=== PATIENT | male | born 1945 | race Caucasian/White ===

== ENCOUNTER 2018-08-22 15:40 | Inpatient (IN) | payer MEDICARE, MEDICAID ==
[2018-08-22] VITALS (18 sets, daily range): BP systolic 77–123; BP diastolic 42–69
[~2018-08-22] VITALS: Ht 170.2 cm; Wt 69.9 kg
[~2018-08-22 15:40] MED LIST: BACTRIM-DS1 EA ORAL; BENADRYL50 MG ORAL; KEFLEX500 MG ORAL
--- NOTE | 2018-08-22 16:08 | NUR ---
ED Nurse Note: Pt BIBA from home due to Altered Level of Consciousness and n/v today per caregiver. Pt vomitted brown substance x1 prior to arrival, not coffee ground. pt slow to respond to questions but opened his eyes while being called his name. pt was at normal mentation per ems at home. Rectal Temp 104.5F upon arrival, HR 107. Monitor attached. Will cont to monitor.
--- NOTE | 2018-08-22 16:10 | NUR ---
ED Nurse Note: Blood drawn and sent to lab.
[2018-08-22] MEDS ORDERED: Acetaminophen 650 MG SUPP RECTAL ONE (16:15)
[2018-08-22] MEDS ORDERED: Piperacillin/Tazobactam 4.5 GM in NS 110 ML IVPB ONE (16:15)
--- NOTE | 2018-08-22 16:17 | Emergency Room Report ---
History of Present Illness General Chief Complaint: Altered Mental Status Source: Patient, EMS Present Illness HPI 73yo M with h/o high cholesterol biba from a private residence for AMS today with vomiting. No h/o falls or trauma. According to EMS, patient is normally alert and oriented x3. History very limited as patient is drowsy and arouses to pain stimulus only. B[facility] Marker is en route. Allergies: Coded Allergies: No Known Allergies (Unverified , 08/22/18) Patient History Past Medical History: see triage record Reviewed Nursing Documentation: PMH: Agreed; PSxH: Agreed Nursing Documentation-PMH Past Medical History: No History, Except For Hx Hypertension: Yes Hx Diabetes: Yes Hx Cancer: Yes Hx Gastrointestinal Problems: No - Hernia Review of Systems All Other Systems: limited Physical Exam Vital Signs Date Time Temp Pulse Resp B/P (MAP) Pulse Ox O2 Delivery O2 Flow Rate FiO2 08/22/18 15:34 99.1 72 20 119/64 95 Room Air Sp02 EP Interpretation: reviewed, normal General Appearance: moderate distress, obese, Stupor Head: normocephalic Eyes: bilateral eye normal inspection, bilateral eye PERRL ENT: normal ENT inspection, normal pharynx, no angioedema, dry mucus membranes Neck: normal inspection, full range of motion, supple, no meningismus, supple/ symm/no masses Respiratory: chest non-tender, lungs clear, no rhonchi, no respiratory distress , no retraction, decreased breath sounds - diminished at bilateral bases, chest symmetrical, palpation of chest normal Cardiovascular #1: normal peripheral pulses, regular rate, rhythm Cardiovascular #2: 2+ radial (R), 2+ radial (L) Gastrointestinal: normal inspection, non tender, soft, no mass, no peritonitis , no guarding, no rebound Rectal: deferred Genitourinary: normal inspection, no CVA tenderness Musculoskeletal: back normal, non-tender, no calf tenderness Neurologic: responsive, email marketing executive III-XII nml as tested - difficult to assess 2/2 depressed level of concsciousness, motor strength/tone normal - withdraws all extremities to pain stimulus, sensory intact Psychiatric: other - unable to assess Skin: normal color, no rash, warm/dry, normal turgor Lymphatic: no adenopathy Procedures Critical Care Time Critical Care Time 55 minutes excluding all procedures as patient is acutely ill with AMS and hyperpyrexia. Medical Decision Making Diagnostic Impression: Primary Impression: Sepsis ER Course Upon the first hour of arrival, patient was treated with 30 mL/kg IV fluid bolus , lactic acid, blood cultures, drawn, and patient given broad-spectrum antibiotics. A repeat focused sepsis exam was performed at 4:15 PM, patient was found to have a fever, but remained hemodynamically stable. He was given rectal tylenol. At 4:45pm, patient's RN gave me a health ID badge that states "adrenal insufficiency" and "hypothyroidism" and "call Leyda [phone]" I have sent out cortisol, tsh, t3/t4. I spoke with Leyda, his daughter, and she reports he had stage IV melanoma, improved with immunotherapy. His immunotherapy doctor is Dr. Ma. Leyda told me over the phone that she would get in touch with Dr. Ma to call me back. I have sent out cortisol, ACTH, renin, aldosterone, tsh, free t3, free t4 on the patient. His workup does not reveal a focus of infection. His WBC is 12k. I will given decadron 4mg IV now in case patient is suffering from an acute adrenal crisis. I spoke to patient's daughter, Leyda, again and she reported patient's brother will be here soon. I have also spoken to patient's son, given him an update. He reports father was admitted to [facility] for sepsis. I spoke with another daughter as well, and updated her also. She reports she will come in to the hospital to see him. Upon my re-evaluation, patient is still hyperthermic despite tylenol, so will try cooling blanket. He is slightly more awake and oriented to person but still drowsy and unable to give history. He will be admitted to Dr. Bonilla for ICU admission. EKG Diagnostic Results EKG Time: 15:54 EP Interpretation: no stemi Rate: tachycardiac Rhythm: NSR ST Segments: no acute changes ASA given to the pt in ED: No Rhythm Strip Diag. Results Rhythm Strip Time: 16:16 EP Interpretation: yes Rate: 108 Rhythm: NSR, no PVC's, no ectopy Chest X-Ray Diagnostic Results Chest X-Ray Diagnostic Results : Chest X-Ray Ordered: Yes # of Views/Limited/Complete: 1 View Indication: Other - ams EP Interpretation: Yes Interpretation: no consolidation, no effusion, no pneumothorax, no acute cardiopulmonary disease Impression: No acute disease Electronically Signed by: Kayden Dc MD CT/MRI/US Diagnostic Results CT/MRI/US Diagnostic Results : Imaging Test Ordered: ct head Last Vital Signs Date Time Temp Pulse Resp B/P (MAP) Pulse Ox O2 Delivery O2 Flow Rate FiO2 08/22/18 16:03 107 21 Room Air 08/22/18 16:02 104.5 123/49 96 KAYDEN DC M.D Aug 22, 2018 16:17
[2018-08-22 16:27] LABS: BASOPHILS % (AUTO) 1.3 % (0.0-2.0); EOSINOPHILS % (AUTO) 0.7 % (0.0-3.0); HEMATOCRIT 42.1 % (42.0-52.0); HEMOGLOBIN 14.5 G/DL (14.2-18.0); LYMPHOCYTES % (AUTO) 19.1 % (20.0-45.0); MEAN CORPUSCULAR VOLUME 85 FL (80-99); MONOCYTES % (AUTO) 10.5 % (1.0-10.0); NEUTROPHILS % (AUTO) 68.4 % (45.0-75.0); PLATELET COUNT 113 K/UL (150-450); RED BLOOD COUNT 4.96 M/UL (4.70-6.10); RED CELL DISTRIBUTION WIDTH 11.7 % (11.6-14.8); WHITE BLOOD COUNT 12.1 K/UL (4.8-10.8)
[2018-08-22 16:29] LABS: INR 1.2 (0.9-1.1)
[2018-08-22 16:31] LABS: AMMONIA 27 umol/L (11-32)
--- NOTE | 2018-08-22 16:31 | Diagnostic Imaging Report ---
Indications: Altered mental status Technique: Spiral acquisitions obtained through the brain. Angled axial and coronal 5 x 5 mm slices were reconstructed. Total dose length product 1460.54 mGycm. CTDI vol(s) 70.38 mGy. Dose reduction achieved using automated exposure control Comparison: None. Findings: Normal-sized ventricles and extra axial CSF spaces. Normal dale-white differentiation. No acute intracranial hemorrhage nor edema. No mass effect nor midline shift. Visualized orbits are unremarkable. There is minimal ethmoid sinus disease. The mastoids are clear. Impression: Negative The CT scanner at [facility] is accredited by the [employer] and the scans are performed using protocols designed to limit radiation exposure to as low as reasonably achievable to attain images of sufficient resolution adequate for diagnostic evaluation.
--- NOTE | 2018-08-22 16:32 | Diagnostic Imaging Report ---
Indication: Shortness of breath Technique: One view of the chest Comparison: none Findings: There are supraclavicular fossa surgical clips. Lungs and pleural spaces are clear. The heart size is upper limits normal. The aorta is tortuous Impression: No acute process
[2018-08-22 16:43] LABS: ANION GAP 12 mmol/L (5-15); BLOOD UREA NITROGEN 27 mg/dL (7-18); CALCIUM 9.2 MG/DL (8.5-10.1); CARBON DIOXIDE 24 MMOL/L (21-32); CHLORIDE 102 MMOL/L (98-107); CREATININE 1.2 MG/DL (0.55-1.30); POTASSIUM 3.8 MMOL/L (3.5-5.1); SODIUM 138 MMOL/L (136-145)
[2018-08-22 16:51] LABS: APPEARANCE,URINE CLEAR; BILIRUBIN, URINE NEGATIVE (NEGATIVE); COLOR,URINE PALE YELLOW; GLUCOSE, URINE (UA) NEGATIVE (NEGATIVE); KETONES,URINE NEGATIVE (NEGATIVE); LEUKOCYTE ESTERASE ,URINE NEGATIVE (NEGATIVE); NITRITE,URINE NEGATIVE (NEGATIVE); PH,URINE 5 (4.5-8.0); PROTEIN,URINE NEGATIVE (NEGATIVE); UROBILINOGEN,URINE NORMAL MG/DL (0.0-1.0)
[2018-08-22 16:56] LABS: ALANINE AMINOTRANSFERASE 38 U/L (12-78); ALBUMIN 4.2 G/DL (3.4-5.0); ALBUMIN/GLOBULIN RATIO 0.9 (1.0-2.7); ALKALINE PHOSPHATASE 71 U/L (46-116); ASPARTATE AMINO TRANSFERASE 44 U/L (15-37); BILIRUBIN,TOTAL 0.5 MG/DL (0.2-1.0); CKMB 2.2 NG/ML (0.0-3.6); CREATINE KINASE 612 U/L (26-308)
[2018-08-22] MEDS ORDERED: Dexamethasone 4mg/ml vial IVP ONE (17:15)
[2018-08-22] MEDS ORDERED: Isovue-300 100ml vial INJ PRN (17:15)
--- NOTE | 2018-08-22 17:42 | NUR ---
ER Nurse Note: Pt is more responsive but unable to communicate. Vital signs elevated; ERMD aware. Pt temp at 104.2. BARTOLOMED notified family members about pt condition. Antibiotic order but unable to obtain from [facility]; Jose from pharmacy notifed and awaiting on med. Pt going to CT. Will continue to montior.
[2018-08-22] MEDS ORDERED: Vancomycin 2gm/D5W 550ml IVPB ONE ×2 (18:30)
--- NOTE | 2018-08-22 18:32 | NUR ---
ER Nurse Note: Pt elevated temp; cooling blanket applied. Vanco infusing. pt condition has not changed since admission. Pt opens eyes with pain simulation. Pt BP 72/38; ERMD aware. Temp 102.7 Will continue to montior.
[2018-08-22] MEDS ORDERED: Levophed 4mg/4mL Inj IV ONE (18:52)
[2018-08-22] MEDS ORDERED: Lidocaine 1% Plain 30 ml INJ ONE ×2 (18:59→19:45)
--- NOTE | 2018-08-22 19:54 | Infectious Diseases Prog Note ---
Assessment/Plan Assessment/Plan Full consult dictated: A) 1) sepsis, fevers, leukocytosis 2) ? source 3) ? adrenal insufficiency 4) hx biliary sepsis and melanoma, pmh noted 5) allergies - nkda P) 1) zosyn and vancomycin, amikacin x 1 dose 2) check labs, cultures and imaging 3) d/w Dr. Bonilla 4) d/w pharmacy 5) d/w family Subjective Allergies: Coded Allergies: No Known Allergies (Unverified , 08/22/18) Objective Vital Signs Last 24 Hour Vital Signs Date Time Temp Pulse Resp B/P (MAP) Pulse Ox O2 Delivery O2 Flow Rate FiO2 08/22/18 17:40 104.2 118 18 102/48 94 Room Air 08/22/18 16:50 104.5 08/22/18 16:03 107 21 Room Air 08/22/18 16:02 104.5 107 21 123/49 96 Room Air 08/22/18 15:34 99.1 72 20 119/64 95 Room Air Height (Feet): 6 Weight (Pounds): 200 Microbiology Date/Time Source Procedure Growth Status 08/22/18 15:55 Nasal Nares Influenza Types A,B Antigen (NELDA) - Final Complete Laboratory Tests Test 08/22/18 15:55 08/22/18 16:35 08/22/18 16:50 08/22/18 18:30 White Blood Count 12.1 K/UL (4.8-10.8) H Red Blood Count 4.96 M/UL (4.70-6.10) Hemoglobin 14.5 G/DL (14.2-18.0) Hematocrit 42.1 % (42.0-52.0) Mean Corpuscular Volume 85 FL (80-99) Mean Corpuscular Hemoglobin 29.2 PG (27.0-31.0) Mean Corpuscular Hemoglobin Concent 34.5 G/DL (32.0-36.0) Red Cell Distribution Width 11.7 % (11.6-14.8) Platelet Count 113 K/UL (150-450) L Mean Platelet Volume 7.4 FL (6.5-10.1) Neutrophils (%) (Auto) 68.4 % (45.0-75.0) Lymphocytes (%) (Auto) 19.1 % (20.0-45.0) L Monocytes (%) (Auto) 10.5 % (1.0-10.0) H Eosinophils (%) (Auto) 0.7 % (0.0-3.0) Basophils (%) (Auto) 1.3 % (0.0-2.0) Prothrombin Time 12.4 SEC (9.30-11.50) H Prothromb Time International Ratio 1.2 (0.9-1.1) H Activated Partial Thromboplast Time 30 SEC (23-33) Sodium Level 138 MMOL/L (136-145) Potassium Level 3.8 MMOL/L (3.5-5.1) Chloride Level 102 MMOL/L (98-107) Carbon Dioxide Level 24 MMOL/L (21-32) Anion Gap 12 mmol/L (5-15) Blood Urea Nitrogen 27 mg/dL (7-18) H Creatinine 1.2 MG/DL (0.55-1.30) Estimat Glomerular Filtration Rate mL/min (>60) Glucose Level 105 MG/DL (74-106) Lactic Acid Level 1.40 mmol/L (0.4-2.0) Calcium Level 9.2 MG/DL (8.5-10.1) Magnesium Level 1.8 MG/DL (1.8-2.4) Total Bilirubin 0.5 MG/DL (0.2-1.0) Aspartate Amino Transf (AST/SGOT) 44 U/L (15-37) H Alanine Aminotransferase (ALT/SGPT) 38 U/L (12-78) Alkaline Phosphatase 71 U/L (46-116) Ammonia 27 umol/L (11-32) Total Creatine Kinase 612 U/L (26-308) H Creatine Kinase MB 2.2 NG/ML (0.0-3.6) Creatine Kinase MB Relative Index 0.3 Troponin I 0.000 ng/mL (0.000-0.056) Total Protein 8.9 G/DL (6.4-8.2) H Albumin 4.2 G/DL (3.4-5.0) Globulin 4.7 g/dL Albumin/Globulin Ratio 0.9 (1.0-2.7) L Urine Color Pale yellow Urine Appearance Clear Urine pH 5 (4.5-8.0) Urine Specific [place] 1.015 (1.005-1.035) Urine Protein Negative (NEGATIVE) Urine Glucose (UA) Negative (NEGATIVE) Urine Ketones Negative (NEGATIVE) Urine Blood 4+ (NEGATIVE) H Urine Nitrite Negative (NEGATIVE) Urine Bilirubin Negative (NEGATIVE) Urine Urobilinogen Normal MG/DL (0.0-1.0) Urine Leukocyte Esterase Negative (NEGATIVE) Urine RBC 2-4 /HPF (0 - 0) H Urine WBC 0 /HPF (0 - 0) Urine Squamous Epithelial Cells None /LPF (NONE/OCC) Urine Bacteria None /HPF (NONE) Arterial Blood pH 7.447 (7.350-7.450) Arterial Blood Partial Pressure CO2 32.6 mmHg (35.0-45.0) L Arterial Blood Partial Pressure O2 63.8 mmHg (75.0-100.0) L Arterial Blood HCO3 22.0 mmol/L (22.0-26.0) Arterial Blood Oxygen Saturation 93.2 % (95-100) L Arterial Blood Base Excess -1.1 (-2-2) Danny Test Positive Phosphorus Level Pending Renin Pending Aldosterone Pending Thyroid Stimulating Hormone (TSH) 5.085 uiU/mL (0.358-3.740) Free Thyroxine 0.96 NG/DL (0.76-1.46) Free Triiodothyronine 2.7 pg/mL (2.3-4.2) Cortisol Pending Adrenocorticotropic Hormone Pending Current Medications Medications (Trade) Dose Ordered Sig/Elli Route PRN Reason Start Time Stop Time Status Last Admin Dose Admin Iopamidol (Isovue-300 100ml) 100 ml NOW PRN INJ Radiology Procedure 08/22/18 17:15 Norepinephrine Bitartrate 4 mg/ Dextrose 250 ml @ 0 mls/hr Q24H IV 08/22/18 19:00 09/21/18 18:59 Vancomycin HCl (Vanco rx to dose) 1 ea DAILY PRN MISC Per rx protocol 08/22/18 17:00 08/22/18 20:29 Vancomycin HCl 2 gm/Dextrose 550 ml @ 275 mls/hr ONCE ONCE IVPB 08/22/18 18:30 08/22/18 20:29 08/22/18 18:14 Treasure Vargas MD Aug 22, 2018 19:54
--- NOTE | 2018-08-22 20:30 | NUR ---
NURSE NOTES: Received pt and report from FAY Calles from ER. Pt's transferred to ICU for sepsis and hypotensive, currently on Levophed at 18mcg/min. Pt's AOx2-3, verbally responsive, stated no pain at this time. BP 92/49, R18, HR 86, O sat 98% with 3L/NC. Febrile T 102.4F currently on cooling mattress. SR on surveillance system monitor. Lungs clear. Noted Right femoral newly inserted TLC. Pt also have right wrist 18G and Left wrist 18G both are patent, saline blocked. Pt had 5L of NS bolus in ER. No skin issues noted. Dr Bonilla aware of the admission and put in his own orders. Family at bedside. Call light within reach. Bed in low and locked position. Will continue to monitor.
[2018-08-22] MEDS ORDERED: Amikacin 400 MG in NS 110 ML IV ONE (22:00)
[2018-08-22] MEDS ORDERED: Acetaminophen 650 MG SUPP RECTAL PRN (22:00)
--- NOTE | 2018-08-22 22:00 | NUR ---
NURSE NOTES: Pt's resting in bed, comfortably, with his eyes closed. Verbally responsive. Afebrile at this time, temp back to 98.8F. Will continue to monitor.
[2018-08-22] MEDS: Hydrocortisone 100mg Inj IV SCH (23:02)
[2018-08-22] MEDS ORDERED: LOSARTAN POTAS100 MG ORAL (23:53)
[2018-08-22] MEDS ORDERED: METFORMIN500 MG/5 M PO (23:53)
[2018-08-22] MEDS ORDERED: CORTEF20 MG ORAL (23:53)
[2018-08-22] MEDS ORDERED: CORTEF5 MG PO (23:53)
[2018-08-22] MEDS: NovoLOG Insulin Flexpen SUBQ SCH (23:57)
[2018-08-23] VITALS (39 sets, daily range): BP systolic 92–137; BP diastolic 44–88
--- NOTE | 2018-08-23 | NUR ---
NURSE NOTES: Pt's resting in bed, in no distress. VS stable. Levophed weaning down, currently at 14mcg/min. Will contine to monitor.
--- NOTE | 2018-08-23 00:15 | History and Physical Report ---
DATE OF ADMISSION: 08/22/2018 REASON FOR ADMISSION: Hypotension, fevers, and leukocytosis. HISTORY OF PRESENT ILLNESS: This is a 73-year-old white male, who has a known history of malignant melanoma undergoing oncologic therapy for the last several years, who has a known history of severe adrenal insufficiency and is on chronic hydrocortisone therapy. He was brought into the hospital emergency room by paramedics today after having severe vomiting, weakness, and lethargy. He was very drowsy and was arousable only to painful stimulus. In the emergency room, he was severely febrile up to 104 at one time and subsequently hypotensive. He was pancultured, given IV antimicrobials, IV fluid challenges, and intravenous steroids. , the patient was subsequently initiated after his blood pressure failed to adequately improve and pressor support was started with norepinephrine. PAST MEDICAL HISTORY: Obtained from review of prior records from [facility] and available data from family members. PAST MEDICAL HISTORY: Includes hypertension, malignant melanoma with metastatic disease, history of acute cholecystitis, and bacteremia in April 2018 with subsequent cholecystectomy, type 2 diabetes mellitus, hypothyroidism, status post hernia repair. ALLERGIES: No known drug allergies. MEDICATIONS: Prior to admission include losartan 50 mg daily, metformin 500 mg twice a day, hydrocortisone 15 mg in the morning and 5 mg in the evening, and levothyroxine 125 mcg six days a week and 250 mcg once a week. SOCIAL HISTORY: Negative for smoking, alcohol, or substance abuse. FAMILY HISTORY: Noncontributory. REVIEW OF SYSTEMS: Otherwise not obtainable from the patient. Recent diagnostic studies from [facility] were notable for melanoma, metastatic disease to the brain. PHYSICAL EXAMINATION: GENERAL: He is withdrawn and lethargic. VITAL SIGNS: Blood pressure 92/50, heart rate 74, respiratory rate 18, and temperature max 104.1. HEENT: Temporal wasting. Pale conjunctivae. Oropharynx is clear. Mucous membranes dry. NECK: Supple. LUNGS: Bilateral breath sounds. No wheezing. CARDIAC: Regular rhythm and rate. Normal S1 and S2 with a fourth heart sound. No murmur. ABDOMEN: Soft and nontender. No guarding or rebound. No open wounds. EXTREMITIES: No clubbing, cyanosis. Decreased capillary refill. No edema. NEUROLOGIC: Reveals grossly symmetric strength. He moves all extremities in response to pain. LABORATORY AND DIAGNOSTIC DATA: The EKG reveals sinus tachycardia and no acute abnormalities. Chest x-ray, no acute process. CT scan of the brain, result is pending. Labs, white count 12 and hemoglobin 14. TSH 5.08. Lactic acid 1.4. Troponin 0. Albumin 4.2. CK 612 with CK-MB negative. BUN 27, creatinine 1.2, bicarbonate 24, sodium 138, and potassium 3.8. IMPRESSION: 1. Shock, possible sepsis. 2. Adrenal insufficiency. 3. Leukocytosis. 4. Prerenal azotemia. 5. Hypovolemia, dehydration. 6. Rhabdomyolysis. 7. Malignant melanoma, on immunotherapy. 8. Status post biliary sepsis with cholecystectomy in April 2018. 9. Condition is critical. Prognosis guarded. PLAN: 1. ICU care. 2. Volume support, pressor support. 3. Stress dose steroids by IV route. 4. Thyroid replacement. 5. DVT and stress ulcer prophylaxes. 6. Infectious Disease consultation and broad-spectrum antimicrobials in place. 7. We will attempt to expand database from family members and outside physicians. Nathaniel Bonilla M.D. DR: NEY JOB#: [id number] CC:
--- NOTE | 2018-08-23 02:00 | Consultation ---
DATE OF CONSULTATION: 08/22/2018 ATTENDING PHYSICIAN: Nathaniel Bonilla M.D. REFERRING PHYSICIAN: Nathaniel Bonilla M.D. REASON FOR CONSULTATION: Possible sepsis, shock, fevers, and leukocytosis. CHIEF COMPLAINT: The patient's chief complaint coming in to the hospital is sepsis and shock. HISTORY OF PRESENT ILLNESS: This is a 73-year-old male who I saw at [facility] in the emergency room. The patient presented to [facility] with low blood pressure, fevers, and elevated white count. The patient has possible sepsis. However, also the patient could have adrenal insufficiency. Case was discussed with Dr. Nathaniel Bonilla, attending physician. The patient has history of melanoma in remission and history of biliary sepsis in the past, status post cholecystectomy. The patient has multiple other medical problems. The patient has been given Zosyn, Levaquin, and vancomycin in the emergency room. The patient is also on steroids. Infectious Disease consultation was requested for antibiotic management with the patient for possible sepsis shock, fevers, and leukocytosis. Chest x-ray initially was negative for pneumonia. The patient has significant altered mental status, requiring pressors in the ER. The patient's urinalysis was unremarkable. The patient will be continued on vancomycin and Zosyn and also given 1 dose of amikacin, which he has a stable creatinine and this 1 dose will not be nephrotoxic and could be lifesaving. Discussed with pharmacy about the amikacin dosing x1 dose only. The patient will be transferred to the ICU from the ER. MAR was noted. Orders were noted. Notes and records were reviewed. Case was discussed with RN. Case was also discussed at length with the patient's brother and family members. REVIEW OF SYSTEMS: CONSTITUTIONAL: The patient has altered mental status and lethargic. He is able to say some words. He is currently on pressors 10 mcg, I believe norepinephrine. He came in with fevers. He has generalized fatigue and weakness. HEAD AND NECK: In my limited communication, head and neck, no obvious head pain or neck stiffness, but difficult to assess. CARDIAC: He is on pressors. GASTROINTESTINAL: No nausea, vomiting, or diarrhea at this time. Possible abdominal pain. GENITOURINARY: He has a Sarmiento. PULMONARY: Significant congestion with mild secretions. SKIN: No rash or itching. EXTREMITIES: No obvious extremity pain, but limited. NEUROLOGIC: No seizures. Review of systems is otherwise limited in this patient. He is , very lethargic, cannot give extensive history. PAST MEDICAL HISTORY: The patient's past medical history includes the history of the following. History of melanoma in remission, biliary sepsis, cholecystectomy, hypothyroidism, and history of adrenal insufficiency. He has history of cancer, which is melanoma, also history of diabetes and hypertension. ALLERGIES: No known drug allergies. No antibiotic allergies. SOCIAL HISTORY: No mention of smoking, alcohol, or drug abuse per the records. FAMILY HISTORY: Per the records. No mention of tuberculosis or cancer. MEDICATIONS: In the ER, he is on following medications. He is on norepinephrine. He has been given vancomycin, Levaquin, and Zosyn. He is on IV fluids. I will give amikacin x1 dose. Outside medications were noted and reconciled. He was on cephalexin, diphenhydramine, and Bactrim. I am not sure of other medications he is on, any further medication history. PHYSICAL EXAMINATION: VITAL SIGNS: Temperature is 104.5, pulse rate is 118, respiratory rate is high as 21, pulse rate 118. T-max 104.5, currently 104.2, blood pressure is 102/48, and saturation 94%. He is on 10 mcg, I believe norepinephrine. GENERAL: He is lethargic and weak, but he is able to respond somewhat. HEAD AND NECK: No obvious neck stiffness. No icterus or thrush. Normocephalic. HEART: Regular. No gallop or murmur. Tachycardic. ABDOMEN: Soft. Mild distention. Positive bowel sounds. No rebound. Some discomfort. LUNGS: Fairly clear bilaterally. No rhonchi or rales. SKIN: No rash. MUSCULOSKELETAL: No effusion. Legs are without cellulitis. PERIPHERAL VASCULAR: No cyanosis or gangrene. GENITOURINARY: He has Sarmiento. Urine is clear. LINE SITES: Without phlebitis. NEUROLOGIC: Generalized weakness and lethargic, maybe somewhat responsive. LABORATORY DATA: Laboratory as follows. White count 12.1 and hemoglobin 14.5. Creatinine is 1.2. LFTs were noted. CK 612. UA, leukocyte esterase negative. Influenza screen is negative. Cultures are pending. IMAGING STUDIES: Chest x-ray showed no acute process. CT scan of the head, which was negative. Lactic acid level was normal at 1.4. ASSESSMENT/PLAN: 1. The patient has possible sepsis, fevers, leukocytosis. Possible sepsis shock, rule out adrenal insufficiency. The patient's fever is high, but this could also be seen in adrenal insufficiency. The patient has history of biliary sepsis; however, he does have history of cholecystectomy also. LFTs were noted, seem mostly unremarkable at this time. At this time, we will continue vancomycin and Zosyn for broad-spectrum coverage including MRSA and gram-negative coverage and anaerobic coverage. We will also give 1 dose of amikacin, which should not affect his kidney function for this one time dose, it may be lifesaving such as gram-negative sepsis. Continue vancomycin, Zosyn, and amikacin x1 dose. Check cultures, labs, and chest x-ray. Check CT scan of the abdomen and pelvis, which has been ordered. Monitor closely. The patient was in the ICU. Continue blood pressure support and watch respiratory status. Case was discussed with Dr. Bonilla and the patient's family. 2. The patient has a history of adrenal insufficiency. 3. History of melanoma in remission. 4. History of biliary sepsis, status post cholecystectomy. 5. Hypothyroidism. 6. Hypertension. 7. Diabetes. 8. History of cancer, which I believe is the melanoma. 9. Past medical history noted. 10. No known drug allergies. 11. Social history is negative. 12. Family history is negative. 13. MAR was noted. 14. Case was discussed with RN. 15. Case was discussed with Dr. Bonilla. 16. Case was discussed with the patient's family. 17. The patient was seen in the emergency room 18. The patient will need ICU care. 19. Continue treatment per primary consultants. 20. Notes and records were noted. 21. Orders were entered. 22. Case was discussed with pharmacy. 23. Skin care protocol. Treasure Vargas M.D. DR: RAYO JOB#: [id number] CC:
--- NOTE | 2018-08-23 02:00 | NUR ---
NURSE NOTES: Pt's afebrile, asleep with eyes closed. VS stable, in no distress. Levophed weaning down, currently at 6mcg/min. BP 112/64. Will continue to monitor.
--- NOTE | 2018-08-23 04:00 | NUR ---
NURSE NOTES: Pt's resting in bed, sleeping with eyes closed. BP 101/68, Levophed at 4mcg/min. Will continue to monitor.
[2018-08-23 05:12] LABS: HEMATOCRIT 36.8 % (42.0-52.0); HEMOGLOBIN 12.6 G/DL (14.2-18.0); MEAN CORPUSCULAR VOLUME 85 FL (80-99); PLATELET COUNT 96 K/UL (150-450); RED BLOOD COUNT 4.33 M/UL (4.70-6.10); RED CELL DISTRIBUTION WIDTH 11.5 % (11.6-14.8); WHITE BLOOD COUNT 20.9 K/UL (4.8-10.8)
[2018-08-23 05:39] LABS: ALANINE AMINOTRANSFERASE 68 U/L (12-78); ALBUMIN 3.3 G/DL (3.4-5.0); ALBUMIN/GLOBULIN RATIO 0.9 (1.0-2.7); ALKALINE PHOSPHATASE 56 U/L (46-116); ANION GAP 12 mmol/L (5-15); ASPARTATE AMINO TRANSFERASE 88 U/L (15-37); BILIRUBIN,TOTAL 0.5 MG/DL (0.2-1.0); BLOOD UREA NITROGEN 18 mg/dL (7-18); CALCIUM 7.8 MG/DL (8.5-10.1); CARBON DIOXIDE 23 MMOL/L (21-32); CHLORIDE 106 MMOL/L (98-107); CREATININE 1.2 MG/DL (0.55-1.30); POTASSIUM 3.4 MMOL/L (3.5-5.1); SODIUM 140 MMOL/L (136-145)
--- NOTE | 2018-08-23 06:00 | NUR ---
NURSE NOTES: BP 108/75, Pt's resting in bed, in no distress. VS stable. Levophed is held at this time. Will continue to monitor.
[2018-08-23] MEDS: Hydrocortisone 100mg Inj IV SCH ×3 (06:12→22:24)
[2018-08-23] MEDS: Vancomycin 1gm/D5W 275ml IVPB SCH ×4 (06:12→18:00)
[2018-08-23] MEDS ORDERED: NovoLOG Insulin Flexpen SUBQ SCH (06:30)
[2018-08-23] MEDS: NovoLOG Insulin Flexpen SUBQ SCH ×4 (06:32→23:52)
--- NOTE | 2018-08-23 07:20 | NUR ---
HAND-OFF: Report given to FAY Elaine.
--- NOTE | 2018-08-23 07:31 | NUR ---
NURSE NOTES: Patient is alert and oriented, levophed has been turned off since the early am, patient has made requests for his glasses and his phone ( has been called) . Patient blood pressure is currently 109/62, sinus rhythm, currently very hungry but has NPO order. Dr Bonilla has been called and message left for Dr crawford to see if he would like to order both trANAFER AND DIET.
--- NOTE | 2018-08-23 08:42 | NUR ---
NURSE NOTES: Dr lawson has been contacted about the patient wbc elevation, awaiting.
--- NOTE | 2018-08-23 08:47 | NUR ---
NURSE NOTES: Dr lopez has been notified about patient vomiting and feeling sick, awaiting call back
[2018-08-23] MEDS: Pantoprazole Inj IVP SCH (08:54)
[2018-08-23] MEDS: Heparin 5000 units/ml inj SUBQ SCH ×2 (08:57→21:00)
--- NOTE | 2018-08-23 09:04 | NUR ---
NURSE NOTES: Dr Butler returned call, has ordered one time dose of IV zofran. Is aware of patient elevated WBC, patient has no fever.
--- NOTE | 2018-08-23 09:18 | Diagnostic Imaging Report ---
Clinical Indication: Vomiting Technique: No oral contrast utilized, per emergency room physician request IV administration nonionic contrast. Venous phase spiral acquisition obtained through the abdomen and pelvis. Multiplanar reconstructions were generated. Total dose length product 597.44 mGycm. CTDIvol(s) 10.89 mGy. Dose reduction achieved using automated exposure control Comparison: none Findings: The appendix is not definitely identified, but no findings to suggest acute appendicitis are noted. There is colonic diverticulosis. No evidence of diverticulitis. There is minimal rectal distention with stool. There are a few prominent fluid-filled small bowel loops, but no nico small bowel distention demonstrated. No free or loculated intraperitoneal gas or fluid. There is a small sliding-type hiatal hernia. The stomach, esophagus, duodenum are otherwise unremarkable. There are cholecystectomy clips. Small hepatic cysts are seen immediately adjacent to the gallbladder fossa. There may be a small amount of fluid in the gallbladder fossa, but this is doubtful. Liver is otherwise unremarkable. No biliary ductal dilatation. The pancreas, spleen, adrenals are unremarkable. The kidneys demonstrate nonspecific bilateral perinephric fat stranding. A 13 mm calculus is seen in the left upper pole collecting system, a tiny interpolar region calculus and a 5 mm calculus in the lower pole. No ureteral calculi. There is mild fullness to the left renal collecting system, but no nico hydronephrosis nor hydroureter. No retroperitoneal or mesenteric mass or adenopathy. No pelvic mass or adenopathy. The prostate is somewhat prominent. There is a Sarmiento catheter in the bladder, which is empty. The included lung bases demonstrate generalized mild interstitial prominence, posterior dependent atelectatic changes. The bones demonstrate minimal scoliotic deformity and spondylosis changes. Impression: Mildly fluid-filled small bowel loops, nonspecific No acute process otherwise Postcholecystectomy changes. What are probably hepatic cysts adjacent to the gallbladder fossa mimics fluid in the gallbladder fossa on the axial views, but appear to be cysts on the coronal images. Nonetheless, biloma or other pathologic collection not completely excludable Multiple nonobstructive left renal calculi Sarmiento catheter Bilateral basilar pulmonary interstitial prominence, nonspecific Scoliosis and spondylosis This agrees with the preliminary interpretation provided overnight by [facility] teleradiology service. The CT scanner at [facility] is accredited by the [employer] and the scans are performed using protocols designed to limit radiation exposure to as low as reasonably achievable to attain images of sufficient resolution adequate for diagnostic evaluation.
[2018-08-23] MEDS ORDERED: NS w/KCl 20mEq 1,000 ML IV SCH (09:30)
--- NOTE | 2018-08-23 09:34 | NUR ---
RADIOLOGY DEPT CHEST X-RAY DONE.-P.DYE
--- NOTE | 2018-08-23 10:42 | Diagnostic Imaging Report ---
Indication: Shortness of breath Technique: One view of the chest Comparison: 08/22/2018 Findings: Lungs and pleural spaces are clear. Heart size is normal. No significant interim change . There are left neck surgical clips Impression: No acute process
--- NOTE | 2018-08-23 12:21 | NUR ---
RADIOLOGY DEPT ABDOMEN X-RAY COMPLETED.-P.DYE
--- NOTE | 2018-08-23 12:23 | Diagnostic Imaging Report ---
Indication: Reason For Exam: VOMITING Technique: Supine view of the abdomen Comparison: 08/22/[address] scan Findings: Prominent but not frankly dilated gas-filled small bowel loops are noted. There is less small bowel gas than on the prior study. There is a right groin central venous catheter, new since prior study. There is a Sarmiento catheter in place. There are cholecystectomy clips and pelvic surgical clip. Impression: Nonspecific prominent but not frankly dilated gas-filled small bowel loops, decreased from previous day's exam Satisfactory position right groin central venous catheter Other findings as noted
--- NOTE | 2018-08-23 12:49 | Infectious Diseases Prog Note ---
Assessment/Plan Assessment/Plan A) 1) sepsis, fevers, leukocytosis, shock 2) ? source 3) ? adrenal insufficiency 4) hx biliary sepsis and melanoma, pmh noted 5) allergies - nkda P) 1) zosyn and vancomycin, amikacin x 1 dose given 2) check labs, cultures and imaging 3) d/w RN Subjective Constitutional: Denies: fever HEENT: Denies: congestion Respiratory: Denies: shortness of breath Cardiovascular: Denies: chest pain Gastrointestinal/Abdominal: Reports: other; Denies: nausea, vomiting, diarrhea Genitourinary: Reports: other - + reyes Allergies: Coded Allergies: No Known Allergies (Unverified , 08/22/18) Objective Vital Signs Last 24 Hour Vital Signs Date Time Temp Pulse Resp B/P (MAP) Pulse Ox O2 Delivery O2 Flow Rate FiO2 08/23/18 12:00 Room Air 3.0 08/23/18 08:00 Room Air 3.0 08/23/18 07:30 97.7 60 16 109/62 (78) 100 08/23/18 07:00 68 16 92/61 (71) 100 08/23/18 06:30 97.8 70 17 92/50 (64) 99 08/23/18 06:00 108/75 08/23/18 06:00 68 16 109/72 (84) 100 08/23/18 05:30 61 13 111/59 (76) 100 08/23/18 05:00 66 16 124/88 (100) 100 08/23/18 05:00 120/74 08/23/18 04:30 68 0 102/59 (73) 99 08/23/18 04:00 64 08/23/18 04:00 3.0 08/23/18 04:00 101/68 08/23/18 04:00 62 0 102/61 (75) 99 08/23/18 04:00 Nasal Cannula 3.0 08/23/18 03:00 65 14 110/60 (77) 98 08/23/18 03:00 115/68 08/23/18 02:45 65 14 117/65 (82) 98 08/23/18 02:30 63 14 105/60 (75) 100 08/23/18 02:30 117/65 08/23/18 02:15 64 15 112/64 (80) 99 18 02:00 112/64 18 02:00 65 12 111/65 (80) 100 18 01:45 63 14 102/60 (74) 100 18 01:30 62 15 124/69 (87) 99 18 01:30 102/60 1818 01:15 97.8 66 15 118/63 (81) 97 18 01:00 68 16 111/64 (80) 97 18 01:00 118/63 18 00:45 68 15 121/70 (87) 97 18 00:30 74 14 137/74 (95) 99 08/23/18 00:30 121/70 18 00:15 71 15 130/83 (99) 99 18 00:00 69 08/23/18 00:00 68 16 98/54 (69) 99 08/23/18 00:00 130/83 08/23/18 00:00 Nasal Cannula 3.0 08/23/18 00:00 3.0 18 23:45 69 15 97/52 (67) 99 08/22/18 23:30 97/52 08/22/18 23:30 69 15 98/51 (67) 98 18 23:29 Nasal Cannula 3.0 17/18 23:22 90/50 08/22/18 23:22 72 11 93/51 (65) 97 18 23:17 75 11 77/42 (54) 93 18 23:00 98.9 80 15 110/51 (70) 91 17/18 23:00 76/50 08/22/18 22:45 79 11 113/58 (76) 96 08/22/18 22:30 81 14 102/55 (71) 93 17/18 22:15 88 18 94/52 (66) 99 17/18 22:00 113/58 17/18 22:00 84 15 112/69 (83) 97 17/18 21:45 85 14 90/57 (68) 98 08/22/18 21:30 85 16 96/52 (67) 98 18 21:15 84 18 92/49 (63) 99 08/22/18 21:00 101.8 88 17 99/46 (63) 99 08/22/18 20:30 102.7 90 22 105/47 95 Room Air 08/22/18 20:00 102.7 90 18 105/47 91 Nasal Cannula 2.0 08/22/18 20:00 105/47 18 19:55 95/68 08/22/18 19:50 94/67 08/22/18 19:50 88 22 94/67 95 Room Air 08/22/18 19:45 92/67 18 19:40 91/68 18 19:40 100 20 91/68 95 Room Air 08/22/18 19:35 90/64 08/22/18 19:30 90/65 18 19:25 89/42 18 19:20 81/45 18 19:15 79/43 18 19:10 57/49 08/22/18 17:40 104.2 118 18 102/48 94 Room Air 08/22/18 16:50 104.5 08/22/18 16:03 107 21 Room Air 08/22/18 16:02 104.5 107 21 123/49 96 Room Air 08/22/18 15:34 99.1 72 20 119/64 95 Room Air Height (Feet): 5 Height (Inches): 7.00 Weight (Pounds): 158 General Appearance: no acute distress HEENT: normocephalic, atraumatic, anicteric, mucous membranes moist Respiratory/Chest: lungs clear, normal breath sounds, no respiratory distress Cardiovascular: normal rate, regular rhythm, no gallop/murmur, no JVD Abdomen: normal bowel sounds, soft, non tender, no organomegaly Extremities: no cyanosis Skin: no rash Microbiology Date/Time Source Procedure Growth Status 08/22/18 15:55 Nasal Nares Influenza Types A,B Antigen (NELDA) - Final Complete Laboratory Tests Test 08/22/18 15:55 08/22/18 16:35 08/22/18 16:50 08/22/18 18:30 White Blood Count 12.1 K/UL (4.8-10.8) H Red Blood Count 4.96 M/UL (4.70-6.10) Hemoglobin 14.5 G/DL (14.2-18.0) Hematocrit 42.1 % (42.0-52.0) Mean Corpuscular Volume 85 FL (80-99) Mean Corpuscular Hemoglobin 29.2 PG (27.0-31.0) Mean Corpuscular Hemoglobin Concent 34.5 G/DL (32.0-36.0) Red Cell Distribution Width 11.7 % (11.6-14.8) Platelet Count 113 K/UL (150-450) L Mean Platelet Volume 7.4 FL (6.5-10.1) Neutrophils (%) (Auto) 68.4 % (45.0-75.0) Lymphocytes (%) (Auto) 19.1 % (20.0-45.0) L Monocytes (%) (Auto) 10.5 % (1.0-10.0) H Eosinophils (%) (Auto) 0.7 % (0.0-3.0) Basophils (%) (Auto) 1.3 % (0.0-2.0) Prothrombin Time 12.4 SEC (9.30-11.50) H Prothromb Time International Ratio 1.2 (0.9-1.1) H Activated Partial Thromboplast Time 30 SEC (23-33) Sodium Level 138 MMOL/L (136-145) Potassium Level 3.8 MMOL/L (3.5-5.1) Chloride Level 102 MMOL/L (98-107) Carbon Dioxide Level 24 MMOL/L (21-32) Anion Gap 12 mmol/L (5-15) Blood Urea Nitrogen 27 mg/dL (7-18) H Creatinine 1.2 MG/DL (0.55-1.30) Estimat Glomerular Filtration Rate mL/min (>60) Glucose Level 105 MG/DL (74-106) Lactic Acid Level 1.40 mmol/L (0.4-2.0) Calcium Level 9.2 MG/DL (8.5-10.1) Magnesium Level 1.8 MG/DL (1.8-2.4) Total Bilirubin 0.5 MG/DL (0.2-1.0) Aspartate Amino Transf (AST/SGOT) 44 U/L (15-37) H Alanine Aminotransferase (ALT/SGPT) 38 U/L (12-78) Alkaline Phosphatase 71 U/L (46-116) Ammonia 27 umol/L (11-32) Total Creatine Kinase 612 U/L (26-308) H Creatine Kinase MB 2.2 NG/ML (0.0-3.6) Creatine Kinase MB Relative Index 0.3 Troponin I 0.000 ng/mL (0.000-0.056) Total Protein 8.9 G/DL (6.4-8.2) H Albumin 4.2 G/DL (3.4-5.0) Globulin 4.7 g/dL Albumin/Globulin Ratio 0.9 (1.0-2.7) L Urine Color Pale yellow Urine Appearance Clear Urine pH 5 (4.5-8.0) Urine Specific Malone 1.015 (1.005-1.035) Urine Protein Negative (NEGATIVE) Urine Glucose (UA) Negative (NEGATIVE) Urine Ketones Negative (NEGATIVE) Urine Blood 4+ (NEGATIVE) H Urine Nitrite Negative (NEGATIVE) Urine Bilirubin Negative (NEGATIVE) Urine Urobilinogen Normal MG/DL (0.0-1.0) Urine Leukocyte Esterase Negative (NEGATIVE) Urine RBC 2-4 /HPF (0 - 0) H Urine WBC 0 /HPF (0 - 0) Urine Squamous Epithelial Cells None /LPF (NONE/OCC) Urine Bacteria None /HPF (NONE) Arterial Blood pH 7.447 (7.350-7.450) Arterial Blood Partial Pressure CO2 32.6 mmHg (35.0-45.0) L Arterial Blood Partial Pressure O2 63.8 mmHg (75.0-100.0) L Arterial Blood HCO3 22.0 mmol/L (22.0-26.0) Arterial Blood Oxygen Saturation 93.2 % (95-100) L Arterial Blood Base Excess -1.1 (-2-2) Danny Test Positive Phosphorus Level 4.1 MG/DL (2.5-4.9) Renin Pending Aldosterone Pending Thyroid Stimulating Hormone (TSH) 5.085 uiU/mL (0.358-3.740) Free Thyroxine 0.96 NG/DL (0.76-1.46) Free Triiodothyronine 2.7 pg/mL (2.3-4.2) Cortisol Pending Adrenocorticotropic Hormone 4.1 pg/mL (7.2-63.3) L Test 12/18/18 05:00 White Blood Count 20.9 K/UL (4.8-10.8) #H Red Blood Count 4.33 M/UL (4.70-6.10) L Hemoglobin 12.6 G/DL (14.2-18.0) L Hematocrit 36.8 % (42.0-52.0) L Mean Corpuscular Volume 85 FL (80-99) Mean Corpuscular Hemoglobin 29.0 PG (27.0-31.0) Mean Corpuscular Hemoglobin Concent 34.2 G/DL (32.0-36.0) Red Cell Distribution Width 11.5 % (11.6-14.8) L Platelet Count 96 K/UL (150-450) L Mean Platelet Volume 6.7 FL (6.5-10.1) Neutrophils (%) (Auto) % (45.0-75.0) Lymphocytes (%) (Auto) % (20.0-45.0) Monocytes (%) (Auto) % (1.0-10.0) Eosinophils (%) (Auto) % (0.0-3.0) Basophils (%) (Auto) % (0.0-2.0) Differential Total Cells Counted 100 Neutrophils % (Manual) 87 % (45-75) H Lymphocytes % (Manual) 3 % (20-45) L Monocytes % (Manual) 2 % (1-10) Eosinophils % (Manual) 0 % (0-3) Basophils % (Manual) 0 % (0-2) Band Neutrophils 8 % (0-8) Platelet Estimate Decreased L Platelet Morphology Normal Red Blood Cell Morphology Normal Sodium Level 140 MMOL/L (136-145) Potassium Level 3.4 MMOL/L (3.5-5.1) L Chloride Level 106 MMOL/L (98-107) Carbon Dioxide Level 23 MMOL/L (21-32) Anion Gap 12 mmol/L (5-15) Blood Urea Nitrogen 18 mg/dL (7-18) Creatinine 1.2 MG/DL (0.55-1.30) Estimat Glomerular Filtration Rate mL/min (>60) Glucose Level 269 MG/DL (74-106) #H Calcium Level 7.8 MG/DL (8.5-10.1) L Magnesium Level 1.5 MG/DL (1.8-2.4) L Total Bilirubin 0.5 MG/DL (0.2-1.0) Aspartate Amino Transf (AST/SGOT) 88 U/L (15-37) H Alanine Aminotransferase (ALT/SGPT) 68 U/L (12-78) Alkaline Phosphatase 56 U/L (46-116) Troponin I 0.043 ng/mL (0.000-0.056) Total Protein 7.1 G/DL (6.4-8.2) Albumin 3.3 G/DL (3.4-5.0) L Globulin 3.8 g/dL Albumin/Globulin Ratio 0.9 (1.0-2.7) L Current Medications Medications (Trade) Dose Ordered Sig/Elli Route PRN Reason Start Time Stop Time Status Last Admin Dose Admin Acetaminophen (Tylenol) 650 mg Q4H PRN RECTAL Mild Pain (Pain Scale 1-3) 08/22/18 22:00 09/21/18 21:59 Chlorhexidine Gluconate (Gabriela-Hex 2%) 1 applic DAILY@1999 TOPIC 08/23/18 20:00 09/22/18 19:59 Dextrose (Dextrose 50%) 25 ml Q30M PRN IV Hypoglycemia 08/22/18 23:30 09/21/18 23:29 Dextrose (Dextrose 50%) 50 ml Q30M PRN IV Hypoglycemia 08/22/18 23:30 09/21/18 23:29 Heparin Sodium (Porcine) (Heparin 5000 units/ml) 5,000 units EVERY 12 HOURS SUBQ 08/23/18 09:00 09/22/18 08:59 Hydrocortisone (Solu-CORTEF) 100 mg EVERY 8 HOURS IV 08/22/18 22:00 09/21/18 21:59 08/23/18 06:12 Insulin Aspart (NovoLOG) EVERY 6 HOURS SUBQ 08/23/18 00:00 09/22/18 00:00 08/23/18 06:32 Iopamidol (Isovue-300 100ml) 100 ml NOW PRN INJ Radiology Procedure 08/22/18 17:15 08/24/18 17:14 Levothyroxine Sodium (Synthroid) 150 mcg DAILY@0630 ORAL 08/23/18 06:30 09/22/18 06:29 08/23/18 06:12 Pantoprazole (Protonix) 40 mg DAILY IVP 08/23/18 09:00 09/22/18 08:59 08/23/18 08:54 Piperacillin Sod/ Tazobactam Sod 4.5 gm/Sodium Chloride 110 ml @ 27.5 mls/hr EVERY 8 HOURS IVPB 08/23/18 14:00 08/28/18 13:59 Sodium Chloride 1,000 ml @ 60 mls/hr [id number] IV 08/23/18 09:30 09/22/18 09:29 08/23/18 09:30 Vancomycin HCl (Vanco rx to dose) 1 ea DAILY PRN MISC Per rx protocol 08/22/18 19:45 09/21/18 19:44 Vancomycin HCl 1 gm/Dextrose 275 ml @ 183.708 mls/hr Q12HR@0600,1800 IVPB 08/23/18 06:00 08/28/18 05:59 08/23/18 06:12 Treasure Vargas MD Aug 23, 2018 12:49
[2018-08-23] MEDS: Zosyn 4.5gm q8h **Extended infusion IVPB SCH ×4 (14:00→22:25)
--- NOTE | 2018-08-23 14:01 | NUR ---
NURSE NOTES: Patient is alert and oriented, 3L nc has been slowly titrated and now on room air, has episodes of bradycardia , patient is asymptomatic. jessica Chandler and renny has seen patient at bedside.
--- NOTE | 2018-08-23 16:01 | Cardiology Report ---
APPROVED REPORT EKG Measurement Heart [id number] abnormality Prolonged QT Abnormal ECG
--- NOTE | 2018-08-23 17:03 | NUR ---
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 104.5 HR 107 RR 21 B/P 125/56 2L NC PH 7.44 PCO2 32.6 PO2 63.8 HCO3 22.0 O2 SAT 93.2 WBC 12.1 PLT 115 CXR= NO ACUTE PROCESS HEAD CT= NO ACUTE PROCESS IS: LEVAQUIN IV IV BOLUS NS X 1LITER ZOSYN IV TYLENOL PO ADMITTED TO ICU ICU STATUS DCP PENDING HOSPITAL STAY
--- NOTE | 2018-08-23 17:15 | Consultation ---
DATE OF CONSULTATION: 08/23/2018 ENDOCRINOLOGY CONSULTATION CONSULTING PHYSICIAN: Stanford Baca M.D. REFERRING PHYSICIAN: Nathaniel Bonilla M.D. REASON FOR CONSULTATION: Adrenal insufficiency. HISTORY OF PRESENT ILLNESS: The patient is a 73-year-old male with history of adrenal insufficiency, hypothyroidism, diabetes, hypogonadism followed by Dr. Millard, loom starter, at [facility]. Adrenal insufficiency is covered by hydrocortisone 15 mg in the morning and 5 mg in the evening, type 2 diabetes is managed by metformin 500 mg b.i.d. and hypothyroidism is managed by levothyroxine 125 mcg, 8 tablets a week. For hypogonadism, the patient is not on replacement. The patient with underlying malignant melanoma, undergoing oncologic therapy under the care of Dr Duane Ma for the past several years. He was brought to the hospital and emergency room by paramedics yesterday after having severe vomiting, weakness, and lethargy. He was found to be in septic shock with high fever of 104, admitted to the ICU, started on pressors, stress dose hydrocortisone. Endocrinology was consulted for the management of glandular disease. PAST MEDICAL HISTORY: 1. Adrenal insufficiency. 2. Hypogonadism. 3. Malignant melanoma with metastatic disease. 4. Type 2 diabetes, controlled on metformin. 5. Hypothyroidism as above. 6. Acute cholecystitis. 7. Bacteremia. 8. History of hernia repair. ALLERGIES TO MEDICATIONS: None. MEDICATIONS: 1. Hydrocortisone 15 mg in the morning and 5 mg in the evening. 2. Levothyroxine 125 mcg eight tablets a week. 3. Metformin daily. SOCIAL HISTORY: No smoking, alcohol, or drug use. FAMILY HISTORY: Noncontributory. REVIEW OF SYSTEMS: Difficult to obtain. PHYSICAL EXAMINATION: GENERAL: The patient is lethargic. VITAL SIGNS: Blood pressure is 90/50, pulse of 100, temperature of 104, respiratory rate of 12. HEENT: Pupils are equal and reactive to light. NECK: No JVD. HEART: Tachy. LUNGS: Bilateral breath sounds. ABDOMEN: Positive bowel sounds. Soft. EXTREMITIES: No clubbing, cyanosis, or edema. LABORATORY VALUES: WBC 20,000, hemoglobin 12, hematocrit 36, platelets of 96. Sodium 140, potassium 3.4, chloride 106, bicarbonate 23, BUN 15, creatinine 1.2, glucose of 269, calcium 7.8. TSH of 5. DIAGNOSES: 1. Adrenal insufficiency. 2. Sepsis. 3. Diabetes. 4. Hypothyroid, elevated TSH. PLAN: 1. Continue with stress dose of hydrocortisone 100 mg every 8 hours for at least another day until the patient's hemodynamics have improved. No need for Florinef. Continue with IV hydration and IV antibiotics. 6. TSH is elevated. I concur with adjusting the dose to 150 mcg daily. As an outpatient, the patient was noncompliant with 8 tablets of levothyroxine 125 mcg weekly. 7. Diabetes exacerbated by steroids will be managed by sliding scale insulin with NovoLog. No need for oral diabetic medications. I will follow the patient closely during hospital stay. Thank you, Dr. Bonilla, for the courtesy of this consultation. Stanford Baca M.D. DR: Michael JOB#: [id number] CC: AMY
--- NOTE | 2018-08-23 19:30 | NUR ---
NURSE NOTES: Received pt and report from FAY Elaine Pt's AOx2-3, verbally responsive, stated no pain at this time. Pt's AOx 4, on the phone with his family, BP 93/44, R18, HR 65, O sat 100% RA. Afebrile. SR on didactic instructor. Lungs clear. Noted Right femoral newly inserted TLC, running NS with 20meqKCL at 60ml/hr. Pt also have right wrist 18G patent, saline blocked. No skin issues noted. Call light within reach. Bed in low and locked position. Will continue to monitor.
--- NOTE | 2018-08-23 19:30 | Consultation ---
DATE OF CONSULTATION: 08/23/2018 HISTORY OF PRESENT ILLNESS: This is a 73-year-old male with a history of malignant melanoma. Currently undergoing chemotherapy. He is also known to have adrenal insufficiency and is chronically on steroids. He came in to the hospital with shortness of breath, vomiting, and weakness. He was febrile and hypotensive. He was given antibiotics, IV fluids and steroids, he is now in the ICU. He is currently off of Denis-Synephrine although he was on it earlier. PAST MEDICAL HISTORY: Notable for status post cholecystectomy, malignant melanoma in remission, history of biliary sepsis, adrenal insufficiency, diabetes mellitus, hypertension. ALLERGIES: None. CURRENT MEDICATIONS: Denis-Synephrine now stopped, vancomycin, potassium, Protonix, Zofran, Synthroid, dexamethasone, subcutaneous heparin, Tylenol, Zosyn, and a 1 time dose of amikacin. REVIEW OF SYSTEMS: Denies any headaches, hematemesis, melena, hematochezia, night sweats, weight loss. PHYSICAL EXAMINATION: VITAL SIGNS: Blood pressure is 103/60, heart rate 72, respirations 18, satting 98% room air. GENERAL: Reveals a 73-year-old male. HEENT: Unremarkable. LUNGS: Clear breath sounds bilaterally. ABDOMEN: Soft. NEUROLOGICAL: Nonfocal. LABORATORY DATA AND IMAGING: Lab testing shows white count 20.9, hemoglobin 12.6, and platelet count 96,000. Chemistries notable for creatinine of 3.4, glucose 269. ABGs; pH 7.44, pCO2 32, PO2 63. Coags are negative. Urinalysis negative. IMAGING STUDIES: X-ray of the chest was obtained which shows clear lungs bilaterally. IMPRESSION: 1. Malignant melanoma. 2. Waterloo's disease. 3. 4. Hypertension. 5. Melanoma, status post chemo. DISCUSSION: Agree with admission and care. The patient most importantly needs fluids, steroid because of I do not see a prominent source of infection. We will follow carefully. Discussed the family, agree with subcutaneous heparin as well as Protonix. Aj Harding M.D. DR: OT/S JOB#: [id number] CC:
[2018-08-23] MEDS ORDERED: Dyna-Hex 2% Top Sol 2oz TOPIC SCH (20:00)
--- NOTE | 2018-08-23 21:00 | NUR ---
NURSE NOTES: Pt's watching TV, in no distress. VS stable. Will continue to monitor
--- NOTE | 2018-08-23 21:30 | Progress Note ---
DATE: 08/23/2018 CARDIOLOGY PROGRESS NOTE SUBJECTIVE: The patient's condition remains critical. He is in the intensive care unit. He was unable to tolerate any oral intake due to vomiting and followup KUB was obtained and notable for ileus. The patient has therefore remained afebrile with low-grade temperatures only this morning and is off pressor support. Still on stress dose steroids. OBJECTIVE: VITAL SIGNS: Blood pressure 117/72, pulse 68, respirations 16, oxygen saturation on room air 100%. LUNGS: Clear. CARDIAC: Regular. Normal S1 and S2 with no murmur. ABDOMEN: Distended, but soft. EXTREMITIES: Without edema. status and care plan is discussed with the patient's son, , and other family members at bedside. IMPRESSION: 1. Ileus. 2. Hypomagnesemia. 3. Hypokalemia. 4. Sepsis. 5. Adrenal insufficiency. 6. Recent cholecystectomy. 7. Insulin-requiring diabetes mellitus, now with high episodes of hypoglycemia. PLAN: 1. Empiric antibiotics. 2. Stress dose steroids. 3. Off pressors. 4. IV magnesium and potassium replacement as well as maintenance hydration while NPO. 5. Serial KUB. 6. DVT prophylaxis. Nathaniel Bonilla M.D. DR: SOFIA JOB#: [id number] CC:
--- NOTE | 2018-08-23 21:33 | General Progress Note ---
Assessment/Plan Assessment/Plan GI CONSULT Dictated Assessment - sepsis/hypotension - improved - Diarrhea - resolved - Melanoma - s/p cholecystectomy - ill defined liver changes on CT - doubt significance - Urolithiasis Recommendations - Abx per ID - check stool cultures - po diet as tolerated - follow labs and exam Thank you Anthony Delgadillo MD Subjective Allergies: Coded Allergies: No Known Allergies (Unverified , 08/22/18) Objective Last 24 Hour Vital Signs Date Time Temp Pulse Resp B/P (MAP) Pulse Ox O2 Delivery O2 Flow Rate FiO2 08/23/18 20:00 Room Air 08/23/18 19:00 65 16 116/65 (82) 100 08/23/18 18:00 69 16 118/59 (78) 100 08/23/18 17:00 70 16 121/70 (87) 100 08/23/18 16:00 68 08/23/18 16:00 Room Air 08/23/18 16:00 61 16 117/72 (87) 100 08/23/18 15:00 69 16 101/63 (76) 100 08/23/18 14:00 97.8 66 16 103/62 (76) 100 08/23/18 13:00 66 16 109/60 (76) 100 08/23/18 12:00 Room Air 3.0 08/23/18 12:00 64 08/23/18 12:00 63 16 122/64 (83) 100 08/23/18 11:00 69 16 101/62 (75) 100 08/23/18 10:00 69 16 101/61 (74) 100 08/23/18 09:00 66 16 99/65 (76) 100 08/23/18 08:00 Room Air 3.0 08/23/18 08:00 98.0 66 16 117/76 (90) 100 08/23/18 08:00 64 08/23/18 07:30 97.7 60 16 109/62 (78) 100 08/23/18 07:00 68 16 92/61 (71) 100 08/23/18 06:30 97.8 70 17 92/50 (64) 99 08/23/18 06:00 108/75 08/23/18 06:00 68 16 109/72 (84) 100 08/23/18 05:30 61 13 111/59 (76) 100 12/18/18 05:00 66 16 124/88 (100) 100 1218/18 05:00 120/74 1218/18 04:30 68 0 102/59 (73) 99 18/18 04:00 64 12/18/18 04:00 3.0 18/18 04:00 101/68 1218/18 04:00 62 0 102/61 (75) 99 18 04:00 Nasal Cannula 3.0 18 03:00 65 14 110/60 (77) 98 1218/18 03:00 115/68 18/18 02:45 65 14 117/65 (82) 98 18/18 02:30 63 14 105/60 (75) 100 18 02:30 117/65 18/18 02:15 64 15 112/64 (80) 99 18 02:00 112/64 18/18 02:00 65 12 111/65 (80) 100 18 01:45 63 14 102/60 (74) 100 18 01:30 62 15 124/69 (87) 99 18 01:30 102/60 18/18 01:15 97.8 66 15 118/63 (81) 97 08/23/18 01:00 68 16 111/64 (80) 97 18/18 01:00 118/63 18/18 00:45 68 15 121/70 (87) 97 1818 00:30 74 14 137/74 (95) 99 1818 00:30 121/70 1818 00:15 71 15 130/83 (99) 99 1818 00:00 69 18/18 00:00 68 16 98/54 (69) 99 1818 00:00 130/83 1818 00:00 Nasal Cannula 3.0 1818 00:00 3.0 17/18 23:45 69 15 97/52 (67) 99 17/18 23:30 97/52 17/18 23:30 69 15 98/51 (67) 98 17/18 23:29 Nasal Cannula 3.0 12/17/18 23:22 90/50 08/22/18 23:22 72 11 93/51 (65) 97 08/22/18 23:17 75 11 77/42 (54) 93 08/22/18 23:00 98.9 80 15 110/51 (70) 91 18 23:00 76/50 08/22/18 22:45 79 11 113/58 (76) 96 08/22/18 22:30 81 14 102/55 (71) 93 08/22/18 22:15 88 18 94/52 (66) 99 18 22:00 113/58 08/22/18 22:00 84 15 112/69 (83) 97 08/22/18 21:45 85 14 90/57 (68) 98 08/22/18 21:30 85 16 96/52 (67) 98 Intake and Output 08/22/18 08/23/18 18:59 06:59 Intake Total 2700 ml 1281.60 ml Output Total 2000 ml Balance 2700 ml -718.40 ml Intake IV Total 2700 ml 1281.60 ml Output Urine Total 2000 ml Laboratory Tests 08/23/18 05:00: White Blood Count 20.9#H, Red Blood Count 4.33L, Hemoglobin 12.6L, Hematocrit 36.8L, Mean Corpuscular Volume 85, Mean Corpuscular Hemoglobin 29.0, Mean Corpuscular Hemoglobin Concent 34.2, Red Cell Distribution Width 11.5L, Platelet Count 96L, Mean Platelet Volume 6.7, Neutrophils (%) (Auto) , Lymphocytes (%) (Auto) , Monocytes (%) (Auto) , Eosinophils (%) (Auto) , Basophils (%) (Auto) , Differential Total Cells Counted 100, Neutrophils % ( Manual) 87H, Lymphocytes % (Manual) 3L, Monocytes % (Manual) 2, Eosinophils % ( Manual) 0, Basophils % (Manual) 0, Band Neutrophils 8, Platelet Estimate DecreasedL, Platelet Morphology Normal, Red Blood Cell Morphology Normal, Sodium Level 140, Potassium Level 3.4L, Chloride Level 106, Carbon Dioxide Level 23, Anion Gap 12, Blood Urea Nitrogen 18, Creatinine 1.2, Estimat Glomerular Filtration Rate , Glucose Level 269#H, Calcium Level 7.8L, Magnesium Level 1.5L, Total Bilirubin 0.5, Aspartate Amino Transf (AST/SGOT) 88H, Alanine Aminotransferase (ALT/SGPT) 68, Alkaline Phosphatase 56, Troponin I 0.043, Total Protein 7.1, Albumin 3.3L, Globulin 3.8, Albumin/Globulin Ratio 0.9L Height (Feet): 5 Height (Inches): 7.00 Weight (Pounds): 158 Francisco Delgadillo MD Aug 23, 2018 21:33
[2018-08-23] MEDS: D5 1/2NS w/KCl 20mEq 1,000 ML IV SCH (22:24)
--- NOTE | 2018-08-23 23:00 | NUR ---
NURSE NOTES: Pt's resting in bed, asleep, with eyes closed, in no acute distress. Seen by Dr Emerson, stated pt's ok for PO Cardiac diet. VS stable. Will continue to monitor.
--- NOTE | 2018-08-23 23:45 | Consultation ---
DATE OF CONSULTATION: 08/23/2018 GASTROENTEROLOGY CONSULTATION CONSULTING PHYSICIAN: Francisco Delgadillo M.D. REFERRING PHYSICIAN: Nathaniel Bonilla M.D. CHIEF COMPLAINT: I was asked to see this patient by Dr. Nathaniel Bonilla for evaluation of sepsis and diarrhea. HISTORY OF PRESENT ILLNESS: The patient is a pleasant 73-year-old white man with adrenal insufficiency, history of malignant melanoma, who came into the hospital due to one day history of becoming ill. The patient is somewhat vague, but he basically says that he woke up tired, fatigued, and could not get out of bed. He had some bouts of vomiting and he was so weak and lethargic that he was brought to the hospital. Initially, he was found to be in the state of shock with fever of 104. He was given antibiotics and IV fluids. He was pancultured and he was admitted to ICU. His vomiting was this morning, but he has not had any more vomiting since and he is very hungry and feels well. He actually now is completely asymptomatic. His vital signs are okay and he is not on any pressors. He has not had a colonoscopy and he states that he refuses to have one. He did have a history of recent cholecystitis in April and at that time he underwent a tube cholecystostomy and then subsequently stage resection of the gallbladder. On imaging studies, he also has kidney stones. He denies any diarrhea. He has no ill contacts at home and he has pets, but the pets are not ill either. PAST MEDICAL HISTORY: Remarkable for history of malignant melanoma, status post immunotherapy, history of adrenal insufficiency due to immunotherapy side effects, history of cholecystitis, status post cholecystostomy tube followed by cholecystectomy, type 2 diabetes mellitus, hypothyroidism, and history of hernia repair. FAMILY HISTORY: Noncontributory. SOCIAL HISTORY: The patient is and he lives in [facility]. He does not smoke or drink or use drugs. ALLERGIES: None. MEDICATIONS: See the chart list for details. These medications include hydrocortisone on a twice daily basis. PHYSICAL EXAMINATION: GENERAL: A pleasant white man, seen in the ICU. HEENT: Normocephalic and atraumatic. Sclerae are anicteric. Oropharynx clear. NECK: Supple. CHEST: Clear to auscultation. CARDIOVASCULAR: Regular rate. ABDOMEN: Soft. Good bowel sounds. There is no organomegaly or tenderness or masses. EXTREMITIES: Revealed no edema. LABORATORY AND DIAGNOSTIC DATA: Laboratory data were noted. Imaging studies were noted. ASSESSMENT: This patient presents with a septic picture of unclear etiology. He offers very minimal symptomatology and at this time he is back to normal. He had a mild degree of ST-elevation, but this may be a response to sepsis and not the cause of it. It should be followed for now. The changes seen on the CT scan with respect to liver are ill-defined and nonspecific and of doubtful significance. There may in fact be results of the cholecystostomy tube and the surgical procedure he had earlier this year. Since the patient is basically asymptomatic now with normal vital signs, off of pressors, and hungry, I would proceed with his oral diet and follow him closely. His stool should be checked for Salmonella as occasionally and Salmonella sepsis can cause this type of sepsis due to food poisoning. The patient was advised he should have a colonoscopy for colon cancer screening, but he basically states he is not interested. RECOMMENDATIONS: 1. Begin oral diet. 2. Antibiotics, broad spectrum. 3. IV fluids. 4. Follow laboratory parameters and exam. 5. Complete stool cultures. Thank you for asking me to participate in the care of this patient. Francisco Delgadillo M.D. DR: CHANELLE JOB#: [id number] CC: AMY
[2018-08-24] VITALS (23 sets, daily range): BP systolic 100–166; BP diastolic 51–107
--- NOTE | 2018-08-24 01:00 | NUR ---
NURSE NOTES: Pt's resting in bed, asleep, in no distress. VS stable. Will continue to monitor.
--- NOTE | 2018-08-24 03:00 | NUR ---
NURSE NOTES: Pt's resting in bed, asleep, in no distress. VS stable. Will continue to monitor.
--- NOTE | 2018-08-24 05:00 | NUR ---
NURSE NOTES: Pt's resting in bed, asleep, in no distress. VS stable. Will continue to monitor.
[2018-08-24 05:37] LABS: HEMATOCRIT 31.1 % (42.0-52.0); HEMOGLOBIN 10.7 G/DL (14.2-18.0); MEAN CORPUSCULAR VOLUME 87 FL (80-99); PLATELET COUNT 93 K/UL (150-450); RED BLOOD COUNT 3.59 M/UL (4.70-6.10); RED CELL DISTRIBUTION WIDTH 11.8 % (11.6-14.8); WHITE BLOOD COUNT 18.1 K/UL (4.8-10.8)
[2018-08-24 06:18] LABS: ALANINE AMINOTRANSFERASE 80 U/L (12-78); ALBUMIN 3.1 G/DL (3.4-5.0); ALBUMIN/GLOBULIN RATIO 0.8 (1.0-2.7); ALKALINE PHOSPHATASE 50 U/L (46-116); ANION GAP 8 mmol/L (5-15); ASPARTATE AMINO TRANSFERASE 99 U/L (15-37); BILIRUBIN,TOTAL 0.3 MG/DL (0.2-1.0); BLOOD UREA NITROGEN 21 mg/dL (7-18); CARBON DIOXIDE 24 MMOL/L (21-32); CHLORIDE 109 MMOL/L (98-107); CREATININE 1.1 MG/DL (0.55-1.30); POTASSIUM 3.6 MMOL/L (3.5-5.1); SODIUM 141 MMOL/L (136-145)
[2018-08-24] MEDS: Vancomycin 1gm/D5W 275ml IVPB SCH ×2 (06:27)
[2018-08-24] MEDS: Zosyn 4.5gm q8h **Extended infusion IVPB SCH ×4 (06:27→13:18)
[2018-08-24] MEDS: Hydrocortisone 100mg Inj IV SCH ×3 (06:28→21:14)
[2018-08-24] MEDS: NovoLOG Insulin Flexpen SUBQ SCH ×4 (06:29→23:05)
[2018-08-24] MEDS ORDERED: Methohexital Sodium Syr 100mg/10ml IVP ONE (07:00)
[2018-08-24] MEDS ORDERED: Flumazenil 0.1mg/ml 5ml Inj IV ONE (07:00)
[2018-08-24] MEDS ORDERED: NS 500ML ONE (07:00)
[2018-08-24] MEDS ORDERED: LORazepam Inj 2mg/ml 1ml ONE (07:00)
[2018-08-24] MEDS ORDERED: Glycopyrrolate 0.2mg/ml 1ml Vial ONE (07:00)
[2018-08-24] MEDS ORDERED: Succinylcholine 20mg/ml 10ml vial ONE (07:00)
--- NOTE | 2018-08-24 07:30 | NUR ---
HAND-OFF: Report given to FAY Limon.
--- NOTE | 2018-08-24 07:35 | NUR ---
NURSE NOTES: Received report from pt Kamran RN. Pt's AOx3, verbally responsive, no c/o pain at this time. vss HR 50-60, O2 sat 99% AFebrile. 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 Lungs rhonchi bilateral. pt c/o productive cough. Rt femoral TLC, 22G RT hand, saline locked. skin intact. pt on bedpan, 1 large BM , loose. Call light within reach. Bed in low and locked position. Will continue to monitor.
--- NOTE | 2018-08-24 07:40 | NUR ---
CASE MANAGEMENT:REVIEW 08/24/18 SI: SEPSIS. ILEUS 98.5 64 15 117/82 97% ON RA WBC+18.1 PLT-93 IS: IVF@75/HR IV ZOSYN Q8HRS IV VANCOMYCIN Q12 IV PROTONIX QD IV SOLUCORTEF Q8HRS HEPARIN SQ Q12 : ICU STATUS PLAN: SERIAL KUB EMPIRIC ABX BEGIN CARDIAC DIET
--- NOTE | 2018-08-24 08:30 | NUR ---
NURSE NOTES: pt ate breakfast 75%, po fluids 210ml. No c/o pain, nausea or vomiting. pt awake in bed, TV on and family at bedside.
[2018-08-24] MEDS: Pantoprazole Inj IVP SCH (08:39)
[2018-08-24] MEDS: Heparin 5000 units/ml inj SUBQ SCH (08:39)
--- NOTE | 2018-08-24 09:33 | Pulmonology Progress Note ---
Assessment/Plan Assessment/Plan IMPRESSION: 1. Malignant melanoma. 2. Bartholomew's disease. 3. Sepsis? 4. Hypotension. DISCUSSION: Agree with admission and care. The patient most importantly needs fluid and steroid because of hypocortisolism. I do not see a prominent source of infection. I will follow carefully. Discussed the family, agree with subcutaneous heparin as well as Protonix. Aj Harding M.D. Subjective Interval Events: Comfortable; not on pressors Constitutional: Reports: no symptoms HEENT: Repors: no symptoms Respiratory: Reports: no symptoms Cardiovascular: Reports: no symptoms Gastrointestinal/Abdominal: Reports: no symptoms Genitourinary: Reports: no symptoms Allergies: Coded Allergies: No Known Allergies (Unverified , 08/22/18) Objective Last 24 Hour Vital Signs Date Time Temp Pulse Resp B/P (MAP) Pulse Ox O2 Delivery O2 Flow Rate FiO2 08/24/18 08:00 65 12 103/51 (68) 96 08/24/18 08:00 Room Air 08/24/18 07:00 98.5 64 15 117/82 (94) 97 08/24/18 06:00 64 15 110/70 (83) 98 08/24/18 05:00 66 13 100/67 (78) 99 08/24/18 04:00 68 13 110/55 (73) 98 08/24/18 04:00 66 08/24/18 04:00 Room Air 08/24/18 03:00 67 17 114/65 (81) 99 08/24/18 02:00 65 14 110/60 (77) 97 08/24/18 01:00 98.6 69 13 116/76 (89) 98 08/24/18 00:00 70 08/24/18 00:00 60 15 100/60 (73) 100 08/24/18 00:00 Room Air 08/23/18 23:00 73 18 114/69 (84) 98 08/23/18 22:00 63 13 109/64 (79) 99 08/23/18 21:30 68 16 99/60 (73) 98 08/23/18 21:00 71 16 108/70 (83) 99 18 20:30 68 16 118/82 (94) 99 08/23/18 20:00 Room Air 08/23/18 20:00 98.2 69 14 93/44 (60) 100 18 20:00 69 08/23/18 19:00 65 16 116/65 (82) 100 08/23/18 18:00 69 16 118/59 (78) 100 08/23/18 17:00 70 16 121/70 (87) 100 08/23/18 16:00 68 08/23/18 16:00 Room Air 08/23/18 16:00 61 16 117/72 (87) 100 08/23/18 15:00 69 16 101/63 (76) 100 08/23/18 14:00 97.8 66 16 103/62 (76) 100 08/23/18 13:00 66 16 109/60 (76) 100 08/23/18 12:00 Room Air 3.0 08/23/18 12:00 64 08/23/18 12:00 63 16 122/64 (83) 100 08/23/18 11:00 69 16 101/62 (75) 100 08/23/18 10:00 69 16 101/61 (74) 100 Intake and Output 08/23/18 08/24/18 19:00 07:00 Intake Total 1288.708 ml 1224.396 ml Output Total 2020 ml 760 ml Balance -731.292 ml 464.396 ml Intake Oral 100 ml IV Total 1288.708 ml 1124.396 ml Output Urine Total 2020 ml 760 ml # Bowel Movements 1 General Appearance: no acute distress HEENT: normocephalic Respiratory/Chest: chest wall non-tender, lungs clear Cardiovascular: normal peripheral pulses, normal rate Abdomen: normal bowel sounds Microbiology Date/Time Source Procedure Growth Status 08/22/18 16:05 Blood Blood Culture - Preliminary NO GROWTH AFTER 24 HOURS Resulted 08/22/18 15:55 Blood Blood Culture - Preliminary NO GROWTH AFTER 24 HOURS Resulted 08/22/18 20:30 Nasal Nares MRSA Culture - Final NO METHICILLIN RESISTANT STAPH AUREUS... Complete 08/22/18 15:55 Nasal Nares Influenza Types A,B Antigen (NELDA) - Final Complete 08/22/18 20:30 Rectum VRE Culture - Final NO VANCOMYCIN RESISTANT ENTEROCOCCUS ... Complete 08/22/18 20:30 Rectum - Final NO CARBAPENEM-RESISTANT ENTEROBACTERI... Complete Laboratory Tests 08/24/18 04:30: White Blood Count 18.1H, Red Blood Count 3.59L, Hemoglobin 10.7L, Hematocrit 31.1L, Mean Corpuscular Volume 87, Mean Corpuscular Hemoglobin 29.9, Mean Corpuscular Hemoglobin Concent 34.4, Red Cell Distribution Width 11.8, Platelet Count 93L, Mean Platelet Volume 7.5, Neutrophils (%) (Auto) , Lymphocytes (%) ( Auto) , Monocytes (%) (Auto) , Eosinophils (%) (Auto) , Basophils (%) (Auto) , Differential Total Cells Counted 100, Neutrophils % (Manual) 88H, Lymphocytes % (Manual) 5L, Monocytes % (Manual) 6, Eosinophils % (Manual) 0, Basophils % ( Manual) 0, Band Neutrophils 1, Platelet Estimate DecreasedL, Platelet Morphology Normal, Hypochromasia 1+, Sodium Level 141, Potassium Level 3.6, Chloride Level 109H, Carbon Dioxide Level 24, Anion Gap 8, Blood Urea Nitrogen 21H, Creatinine 1.1, Estimat Glomerular Filtration Rate , Glucose Level 162#H, Calcium Level 8.0L, Magnesium Level 2.4, Total Bilirubin 0.3, Aspartate Amino Transf (AST/SGOT) 99H, Alanine Aminotransferase (ALT/SGPT) 80H, Alkaline Phosphatase 50, Total Protein 6.9, Albumin 3.1L, Globulin 3.8, Albumin/Globulin Ratio 0.8L, Vancomycin Level Trough 13.1H, Hepatitis A IgM Antibody [Pending], Hepatitis B Surface Antigen [Pending], Hepatitis B Core IgM Antibody [Pending], Hepatitis C Antibody [Pending] Current Medications Medications (Trade) Dose Ordered Sig/Elli Route PRN Reason Start Time Stop Time Status Last Admin Dose Admin Acetaminophen (Tylenol) 650 mg Q4H PRN RECTAL Mild Pain (Pain Scale 1-3) 08/22/18 22:00 09/21/18 21:59 Chlorhexidine Gluconate (Gabriela-Hex 2%) 1 applic DAILY@1999 TOPIC 08/23/18 20:00 09/22/18 19:59 08/23/18 20:00 Dextrose (Dextrose 50%) 25 ml Q30M PRN IV Hypoglycemia 08/22/18 23:30 09/21/18 23:29 Dextrose (Dextrose 50%) 50 ml Q30M PRN IV Hypoglycemia 08/22/18 23:30 09/21/18 23:29 Dextrose/ Electrolytes 1,000 ml @ 75 mls/hr [id number] IV 08/23/18 22:00 09/22/18 21:59 08/23/18 22:24 Heparin Sodium (Porcine) (Heparin 5000 units/ml) 5,000 units EVERY 12 HOURS SUBQ 08/23/18 09:00 09/22/18 08:59 Hydrocortisone (Solu-CORTEF) 100 mg EVERY 8 HOURS IV 08/22/18 22:00 09/21/18 21:59 08/24/18 06:28 Insulin Aspart (NovoLOG) EVERY 6 HOURS SUBQ 08/23/18 00:00 09/22/18 00:00 08/24/18 06:29 Iopamidol (Isovue-300 100ml) 100 ml NOW PRN INJ Radiology Procedure 08/22/18 17:15 08/24/18 17:14 Levothyroxine Sodium (Synthroid) 150 mcg DAILY@0630 ORAL 08/23/18 06:30 09/22/18 06:29 08/24/18 06:28 Ondansetron HCl (Zofran) 4 mg Q4H PRN IVP Nausea & Vomiting 08/23/18 20:00 09/22/18 19:59 Pantoprazole (Protonix) 40 mg DAILY IVP 08/23/18 09:00 09/22/18 08:59 08/24/18 08:39 Piperacillin Sod/ Tazobactam Sod 4.5 gm/Sodium Chloride 110 ml @ 27.5 mls/hr EVERY 8 HOURS IVPB 08/23/18 14:00 08/28/18 13:59 08/24/18 06:27 Vancomycin HCl (Vanco rx to dose) 1 ea DAILY PRN MISC Per rx protocol 08/22/18 19:45 09/21/18 19:44 Vancomycin HCl/ Dextrose 250 ml @ 166.667 mls/hr Q12H IVPB 08/24/18 16:00 08/29/18 15:59 Aj Harding MD Aug 24, 2018 09:33
--- NOTE | 2018-08-24 11:20 | NUR ---
NURSE NOTES: Called MD Bonilla to update on pt HR trend in last two hours increasing episodes of bradycardia 40-50's, sbp increase from mid 120's to 150's. pt asymptomatic, but feels fatigued today. No new orders. Family at bedside and son would like to talk with MD. MD aware will make rounds.
--- NOTE | 2018-08-24 11:51 | NUR ---
NURSE NOTES: paged MD Harding, regarding pt request for cough syrup, pt says been coughing up phlegm. Auscultated mild rhonchi in bilateral lower lobes. Received order to input Robitussin 5ml po q6hr for cough.
[2018-08-24] MEDS ORDERED: Guaifenesin/DM 10ml syrup ORAL PRN ×2 (12:00→17:04)
[2018-08-24] MEDS: D5 1/2NS w/KCl 20mEq 1,000 ML IV SCH ×2 (12:08→17:00)
--- NOTE | 2018-08-24 14:00 | NUR ---
NURSE NOTES: Pt's resting in bed, with eyes closed, in no acute distress.
[2018-08-24] MEDS ORDERED: Vancomycin 1250mg/D5W 250ml IVPB SCH ×2 (16:00)
--- NOTE | 2018-08-24 16:27 | Infectious Diseases Prog Note ---
Assessment/Plan Assessment/Plan ASSESSMENT/PLAN: 1. possible sepsis, shock, fevers, adrenal insufficiency, ileus, steroids, leukocytosis, ? gram + bacteremia - / + bc - zosyn and vancomycin - check blood culture ID - chest x-ray - neg x 2 - steroids - monitor labs, bp, temps - icu care - clinically improved 2. The patient has a history of adrenal insufficiency. 3. History of melanoma in remission. 4. History of biliary sepsis, status post cholecystectomy. 5. Hypothyroidism. 6. Hypertension. 7. Diabetes. 8. History of cancer, which I believe is the melanoma. 9. Past medical history noted. 10. No known drug allergies. 11. Social history is negative. 12. Family history is negative. 13. MAR was noted. 14. Case was discussed with RN. 15. Case was discussed with Dr. Bonilla. 16. Case was discussed with the patient's family. 17. The patient was seen in the emergency room 18. The patient will need ICU care. 19. Continue treatment per primary consultants. 20. Notes and records were noted. 21. Orders were entered. 22. Case was discussed with pharmacy. 23. Skin care protocol. Subjective Constitutional: Reports: fever - fevers better , fatigue, other - more alert and orientated HEENT: Denies: congestion Respiratory: Denies: shortness of breath Cardiovascular: Denies: chest pain Gastrointestinal/Abdominal: Denies: nausea Genitourinary: Reports: other - + reyes, no cva pain Neurologic: Denies: headache Psychiatric: Denies: depression Skin: Denies: rash Hematologic: Denies: bleeding Musculoskeletal: Denies: pain Allergies: Coded Allergies: No Known Allergies (Unverified , 08/22/18) Objective Vital Signs Last 24 Hour Vital Signs Date Time Temp Pulse Resp B/P (MAP) Pulse Ox O2 Delivery O2 Flow Rate FiO2 08/24/18 15:00 56 20 158/90 (112) 98 08/24/18 14:00 60 17 166/93 (117) 100 08/24/18 14:00 60 17 141/85 (103) 100 08/24/18 13:00 68 17 166/93 (117) 99 08/24/18 12:00 98.6 63 16 154/107 (123) 99 08/24/18 12:00 Room Air 08/24/18 12:00 40 08/24/18 11:00 46 14 148/69 (95) 100 08/24/18 10:45 61 17 151/69 (96) 100 08/24/18 10:30 61 15 150/77 (101) 100 08/24/18 10:26 62 13 154/75 (101) 100 08/24/18 10:24 60 17 139/70 (93) 100 08/24/18 10:00 61 18 142/83 (102) 99 08/24/18 09:00 63 16 131/69 (89) 98 08/24/18 08:00 65 12 103/51 (68) 96 08/24/18 08:00 68 08/24/18 08:00 Room Air 08/24/18 07:00 98.5 64 15 117/82 (94) 97 08/24/18 06:00 64 15 110/70 (83) 98 08/24/18 05:00 66 13 100/67 (78) 99 08/24/18 04:00 68 13 110/55 (73) 98 08/24/18 04:00 66 08/24/18 04:00 Room Air 08/24/18 03:00 67 17 114/65 (81) 99 08/24/18 02:00 65 14 110/60 (77) 97 08/24/18 01:00 98.6 69 13 116/76 (89) 98 08/24/18 00:00 70 08/24/18 00:00 60 15 100/60 (73) 100 08/24/18 00:00 Room Air 08/23/18 23:00 73 18 114/69 (84) 98 08/23/18 22:00 63 13 109/64 (79) 99 08/23/18 21:30 68 16 99/60 (73) 98 18 21:00 71 16 108/70 (83) 99 18 20:30 68 16 118/82 (94) 99 08/23/18 20:00 Room Air 08/23/18 20:00 98.2 69 14 93/44 (60) 100 18 20:00 69 18 19:00 65 16 116/65 (82) 100 08/23/18 18:00 69 16 118/59 (78) 100 08/23/18 17:00 70 16 121/70 (87) 100 Height (Feet): 5 Height (Inches): 7.00 Weight (Pounds): 158 General Appearance: no acute distress HEENT: normocephalic, atraumatic, anicteric, mucous membranes moist, EOMI, pharynx normal, supple, no JVD Respiratory/Chest: lungs clear, normal breath sounds, no respiratory distress, no accessory muscle use Cardiovascular: normal rate, regular rhythm, no gallop/murmur, no JVD Abdomen: normal bowel sounds, soft, non tender, no organomegaly, non distended Genitourinary: other - + reyes - urine clear Extremities: no cyanosis Skin: no rash 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 What are probably hepatic cysts adjacent to the gallbladder fossa mimics fluid in the gallbladder fossa on the axial views, but appear to be cysts on the coronal images. Nonetheless, biloma or other pathologic collection not completely excludable Multiple nonobstructive left renal calculi Reyes catheter Bilateral basilar pulmonary interstitial prominence, nonspecific Scoliosis and spondylosis Chest x-ray - nad x 2, reports noted Microbiology Date/Time Source Procedure Growth Status 08/22/18 16:05 Blood Blood Culture - Preliminary NO GROWTH AFTER 24 HOURS Resulted 08/22/18 15:55 Blood Blood Culture - Preliminary Resulted 08/22/18 20:30 Nasal Nares MRSA Culture - Final NO METHICILLIN RESISTANT STAPH AUREUS... Complete 08/22/18 15:55 Nasal Nares Influenza Types A,B Antigen (NELDA) - Final Complete 08/22/18 20:30 Rectum VRE Culture - Final NO VANCOMYCIN RESISTANT ENTEROCOCCUS ... Complete 08/22/18 20:30 Rectum - Final NO CARBAPENEM-RESISTANT ENTEROBACTERI... Complete Laboratory Tests Test 08/24/18 04:30 08/24/18 10:40 White Blood Count 18.1 K/UL (4.8-10.8) H Red Blood Count 3.59 M/UL (4.70-6.10) L Hemoglobin 10.7 G/DL (14.2-18.0) L Hematocrit 31.1 % (42.0-52.0) L Mean Corpuscular Volume 87 FL (80-99) Mean Corpuscular Hemoglobin 29.9 PG (27.0-31.0) Mean Corpuscular Hemoglobin Concent 34.4 G/DL (32.0-36.0) Red Cell Distribution Width 11.8 % (11.6-14.8) Platelet Count 93 K/UL (150-450) L Mean Platelet Volume 7.5 FL (6.5-10.1) Neutrophils (%) (Auto) % (45.0-75.0) Lymphocytes (%) (Auto) % (20.0-45.0) Monocytes (%) (Auto) % (1.0-10.0) Eosinophils (%) (Auto) % (0.0-3.0) Basophils (%) (Auto) % (0.0-2.0) Differential Total Cells Counted 100 Neutrophils % (Manual) 88 % (45-75) H Lymphocytes % (Manual) 5 % (20-45) L Monocytes % (Manual) 6 % (1-10) Eosinophils % (Manual) 0 % (0-3) Basophils % (Manual) 0 % (0-2) Band Neutrophils 1 % (0-8) Platelet Estimate Decreased L Platelet Morphology Normal Hypochromasia 1+ Sodium Level 141 MMOL/L (136-145) Potassium Level 3.6 MMOL/L (3.5-5.1) Chloride Level 109 MMOL/L (98-107) H Carbon Dioxide Level 24 MMOL/L (21-32) Anion Gap 8 mmol/L (5-15) Blood Urea Nitrogen 21 mg/dL (7-18) H Creatinine 1.1 MG/DL (0.55-1.30) Estimat Glomerular Filtration Rate mL/min (>60) Glucose Level 162 MG/DL (74-106) #H Calcium Level 8.0 MG/DL (8.5-10.1) L Magnesium Level 2.4 MG/DL (1.8-2.4) Total Bilirubin 0.3 MG/DL (0.2-1.0) Aspartate Amino Transf (AST/SGOT) 99 U/L (15-37) H Alanine Aminotransferase (ALT/SGPT) 80 U/L (12-78) H Alkaline Phosphatase 50 U/L (46-116) Total Protein 6.9 G/DL (6.4-8.2) Albumin 3.1 G/DL (3.4-5.0) L Globulin 3.8 g/dL Albumin/Globulin Ratio 0.8 (1.0-2.7) L Vancomycin Level Trough 13.1 ug/mL (5.0-12.0) H Hepatitis A IgM Antibody Pending Hepatitis B Surface Antigen Pending Hepatitis B Core IgM Antibody Pending Hepatitis C Antibody Pending Lactic Acid Level 1.90 mmol/L (0.4-2.0) Current Medications Medications (Trade) Dose Ordered Sig/Elli Route PRN Reason Start Time Stop Time Status Last Admin Dose Admin Acetaminophen (Tylenol) 650 mg Q4H PRN RECTAL Mild Pain (Pain Scale 1-3) 08/22/18 22:00 09/21/18 21:59 Chlorhexidine Gluconate (Gabriela-Hex 2%) 1 applic DAILY@2000 TOPIC 08/23/18 20:00 09/22/18 19:59 08/23/18 20:00 Dextrose (Dextrose 50%) 25 ml Q30M PRN IV Hypoglycemia 08/22/18 23:30 09/21/18 23:29 Dextrose (Dextrose 50%) 50 ml Q30M PRN IV Hypoglycemia 08/22/18 23:30 09/21/18 23:29 Dextrose/ Electrolytes 1,000 ml @ 75 mls/hr [id number] IV 08/23/18 22:00 09/22/18 21:59 08/24/18 12:08 Guaifenesin/ Dextromethorphan (Robitussin DM Syrup) 5 ml Q6H PRN ORAL For Cough 08/24/18 12:00 09/23/18 11:59 08/24/18 12:16 Heparin Sodium (Porcine) (Heparin 5000 units/ml) 5,000 units EVERY 12 HOURS SUBQ 08/23/18 09:00 09/22/18 08:59 Hydrocortisone (Solu-CORTEF) 100 mg EVERY 8 HOURS IV 08/22/18 22:00 09/21/18 21:59 08/24/18 13:18 Insulin Aspart (NovoLOG) EVERY 6 HOURS SUBQ 08/23/18 00:00 09/22/18 00:00 08/24/18 12:15 Iopamidol (Isovue-300 100ml) 100 ml NOW PRN INJ Radiology Procedure 08/22/18 17:15 08/24/18 17:14 Levothyroxine Sodium (Synthroid) 150 mcg DAILY@0630 ORAL 08/23/18 06:30 09/22/18 06:29 08/24/18 06:28 Ondansetron HCl (Zofran) 4 mg Q4H PRN IVP Nausea & Vomiting 08/23/18 20:00 09/22/18 19:59 Pantoprazole (Protonix) 40 mg DAILY IVP 08/23/18 09:00 09/22/18 08:59 08/24/18 08:39 Piperacillin Sod/ Tazobactam Sod 4.5 gm/Sodium Chloride 110 ml @ 27.5 mls/hr EVERY 8 HOURS IVPB 08/23/18 14:00 08/28/18 13:59 08/24/18 13:18 Vancomycin HCl (Vanco rx to dose) 1 ea DAILY PRN MISC Per rx protocol 08/22/18 19:45 09/21/18 19:44 Vancomycin HCl/ Dextrose 250 ml @ 166.667 mls/hr Q12H IVPB 08/24/18 16:00 08/29/18 15:59 Treasure Vargas MD Aug 24, 2018 16:27
--- NOTE | 2018-08-24 16:30 | NUR ---
HAND-OFF: Report given to [].TRANSFER TO FLOOR: Patient transferred to [address] [facility], per . Report given to helen. Belongings and medications given to helen . Family and or S/O informed of transfer. yes at bedside
--- NOTE | 2018-08-24 16:35 | NUR ---
NURSE NOTES: Report received from Neyda [employer] REP.Pt awake,alert oriented in no acute resp distress ,denies any discomfort or pain,SR on the monitor,IV site to LFA intact with D5NS+ 20 meq KCL running at 75 ml /hr,skin warm and dry ,SR up x2 bed in lowest position,HOB elevated,family members at bedside.
[2018-08-24] MEDS ORDERED: Isovue-300 100ml vial INJ PRN (17:00)
[2018-08-24] MEDS ORDERED: Acetaminophen 650 MG SUPP RECTAL PRN (17:03)
--- NOTE | 2018-08-24 18:58 | General Progress Note ---
Assessment/Plan Problem List: (1) Sepsis ICD Codes: A41.9 - Sepsis, unspecified organism SNOMED: 92578810 (2) Diabetes ICD Codes: E11.9 - Type 2 diabetes mellitus without complications SNOMED: 22378801 (3) Hypothyroidism ICD Codes: E03.9 - Hypothyroidism, unspecified SNOMED: 39561728 (4) Adrenal insufficiency ICD Codes: E27.40 - Unspecified adrenocortical insufficiency SNOMED: 79445292, 910536640 Assessment/Plan reduce IVHC to 25 mg every 8 hours continue Levothyroxine 150 mcg daily continue NISS Subjective Allergies: Coded Allergies: No Known Allergies (Unverified , 08/22/18) All Systems: reviewed and negative except above Subjective doing much better out of ICU son at bedside Objective Last 24 Hour Vital Signs Date Time Temp Pulse Resp B/P (MAP) Pulse Ox O2 Delivery O2 Flow Rate FiO2 08/24/18 17:02 58 08/24/18 16:00 99.0 49 16 153/77 (102) 99 08/24/18 16:00 55 08/24/18 16:00 Room Air 08/24/18 15:00 56 20 158/90 (112) 98 08/24/18 14:00 60 17 166/93 (117) 100 08/24/18 14:00 60 17 141/85 (103) 100 08/24/18 13:00 68 17 166/93 (117) 99 08/24/18 12:00 98.6 63 16 154/107 (123) 99 08/24/18 12:00 Room Air 08/24/18 12:00 40 08/24/18 11:00 46 14 148/69 (95) 100 08/24/18 10:45 61 17 151/69 (96) 100 08/24/18 10:30 61 15 150/77 (101) 100 08/24/18 10:26 62 13 154/75 (101) 100 08/24/18 10:24 60 17 139/70 (93) 100 08/24/18 10:00 61 18 142/83 (102) 99 08/24/18 09:00 63 16 131/69 (89) 98 08/24/18 08:55 108 16 Room Air 08/24/18 08:00 65 12 103/51 (68) 96 08/24/18 08:00 68 08/24/18 08:00 Room Air 08/24/18 07:00 98.5 64 15 117/82 (94) 97 08/24/18 06:00 64 15 110/70 (83) 98 08/24/18 05:00 66 13 100/67 (78) 99 08/24/18 04:00 68 13 110/55 (73) 98 08/24/18 04:00 66 08/24/18 04:00 Room Air 08/24/18 03:00 67 17 114/65 (81) 99 08/24/18 02:00 65 14 110/60 (77) 97 08/24/18 01:00 98.6 69 13 116/76 (89) 98 08/24/18 00:00 70 08/24/18 00:00 60 15 100/60 (73) 100 08/24/18 00:00 Room Air 08/23/18 23:00 73 18 114/69 (84) 98 08/23/18 22:00 63 13 109/64 (79) 99 08/23/18 21:30 68 16 99/60 (73) 98 08/23/18 21:00 71 16 108/70 (83) 99 18 20:30 68 16 118/82 (94) 99 08/23/18 20:00 Room Air 08/23/18 20:00 98.2 69 14 93/44 (60) 100 08/23/18 20:00 69 08/23/18 19:00 65 16 116/65 (82) 100 Intake and Output 08/23/18 08/24/18 19:00 07:00 Intake Total 1288.708 ml 1224.396 ml Output Total 2020 ml 760 ml Balance -731.292 ml 464.396 ml Intake Oral 100 ml IV Total 1288.708 ml 1124.396 ml Output Urine Total 2020 ml 760 ml # Bowel Movements 1 Laboratory Tests 08/24/18 04:30: White Blood Count 18.1H, Red Blood Count 3.59L, Hemoglobin 10.7L, Hematocrit 31.1L, Mean Corpuscular Volume 87, Mean Corpuscular Hemoglobin 29.9, Mean Corpuscular Hemoglobin Concent 34.4, Red Cell Distribution Width 11.8, Platelet Count 93L, Mean Platelet Volume 7.5, Neutrophils (%) (Auto) , Lymphocytes (%) ( Auto) , Monocytes (%) (Auto) , Eosinophils (%) (Auto) , Basophils (%) (Auto) , Differential Total Cells Counted 100, Neutrophils % (Manual) 88H, Lymphocytes % (Manual) 5L, Monocytes % (Manual) 6, Eosinophils % (Manual) 0, Basophils % ( Manual) 0, Band Neutrophils 1, Platelet Estimate DecreasedL, Platelet Morphology Normal, Hypochromasia 1+, Sodium Level 141, Potassium Level 3.6, Chloride Level 109H, Carbon Dioxide Level 24, Anion Gap 8, Blood Urea Nitrogen 21H, Creatinine 1.1, Estimat Glomerular Filtration Rate , Glucose Level 162#H, Calcium Level 8.0L, Magnesium Level 2.4, Total Bilirubin 0.3, Aspartate Amino Transf (AST/SGOT) 99H, Alanine Aminotransferase (ALT/SGPT) 80H, Alkaline Phosphatase 50, Total Protein 6.9, Albumin 3.1L, Globulin 3.8, Albumin/Globulin Ratio 0.8L, Vancomycin Level Trough 13.1H, Hepatitis A IgM Antibody [Pending], Hepatitis B Surface Antigen [Pending], Hepatitis B Core IgM Antibody [Pending], Hepatitis C Antibody [Pending] 08/24/18 10:40: Lactic Acid Level 1.90 Height (Feet): 5 Height (Inches): 7.00 Weight (Pounds): 158 General Appearance: no apparent distress Neck: normal alignment Cardiovascular: normal peripheral pulses Respiratory/Chest: lungs clear Abdomen: normal bowel sounds Edema: no edema noted Arm (L), no edema noted Arm (R), no edema noted Leg (L), no edema noted Leg (R), no edema noted Pedal (L), no edema noted Pedal (R), no edema noted Generalized Objective Current Medications Medications (Trade) Dose Ordered Sig/Elli Route PRN Reason Start Time Stop Time Status Last Admin Dose Admin Acetaminophen (Tylenol) 650 mg Q4H PRN RECTAL Mild Pain (Pain Scale 1-3) 08/24/18 17:03 09/21/18 17:02 Chlorhexidine Gluconate (Gabriela-Hex 2%) 1 applic DAILY@1999 TOPIC 08/24/18 20:00 09/22/18 19:59 Dextrose (Dextrose 50%) 25 ml Q30M PRN IV Hypoglycemia 08/24/18 17:30 09/21/18 23:29 Dextrose (Dextrose 50%) 50 ml Q30M PRN IV Hypoglycemia 08/24/18 17:30 09/21/18 23:29 Dextrose/ Electrolytes 1,000 ml @ 75 mls/hr [id number] IV 08/24/18 17:00 09/22/18 21:59 08/24/18 17:00 Guaifenesin/ Dextromethorphan (Robitussin DM Syrup) 5 ml Q6H PRN ORAL For Cough 08/24/18 17:04 09/23/18 17:03 Heparin Sodium (Porcine) (Heparin 5000 units/ml) 5,000 units EVERY 12 HOURS SUBQ 08/24/18 21:00 09/22/18 08:59 UNV Hydrocortisone (Solu-CORTEF) 100 mg EVERY 8 HOURS IV 08/24/18 22:00 09/21/18 21:59 Insulin Aspart (NovoLOG) EVERY 6 HOURS SUBQ 08/24/18 18:00 09/22/18 00:00 08/24/18 18:16 Iopamidol (Isovue-300 100ml) 100 ml NOW PRN INJ RADIOLOGY 08/24/18 17:00 08/25/18 23:59 Levothyroxine Sodium (Synthroid) 150 mcg DAILY@0630 ORAL 08/25/18 06:30 09/22/18 06:29 Ondansetron HCl (Zofran) 4 mg Q4H PRN IVP Nausea & Vomiting 08/24/18 17:04 09/22/18 17:03 Pantoprazole (Protonix) 40 mg DAILY IVP 08/25/18 09:00 09/22/18 08:59 Piperacillin Sod/ Tazobactam Sod 4.5 gm/Sodium Chloride 110 ml @ 27.5 mls/hr EVERY 8 HOURS IVPB 08/24/18 22:00 08/28/18 13:59 Vancomycin HCl (Vanco rx to dose) 1 ea DAILY PRN MISC Per rx protocol 08/25/18 09:00 09/21/18 19:44 Vancomycin HCl/ Dextrose 250 ml @ 166.667 mls/hr Q12H IVPB 08/25/18 04:00 08/29/18 15:59 Item Value Date Time Bedside Blood Glucose 233 mg/dl H 08/24/18 1816 Bedside Blood Glucose 199 mg/dl H 08/24/18 1215 Bedside Blood Glucose 179 mg/dl H 08/24/18 0629 Bedside Blood Glucose 180 mg/dl H 08/24/18 0000 Stafnord Baca MD Aug 24, 2018 18:58
--- NOTE | 2018-08-24 19:33 | NUR ---
HAND-OFF: Report given to .Roxi Galindo RN
--- NOTE | 2018-08-24 19:34 | NUR ---
NURSE NOTES: Received pt from FAY Montaño at bedside. Pt is AOx4, able to make needs known. ledge man showing SB. RA, sating at 95%. Skin is clean, dry, intact, able to shift weight in bed. LFA 20 running D5NS w/ 40 meq KCL @ 75; patent, intact, asymptomatic. PM labs, aware per . Ordered to continue to give Heparin for platelets at [address] Bonilla DC. Bed is locked in lowest position, call valle within reach, side rails x3, bed alarm on. Will continue to monitor and follow plan of care.
[2018-08-24] MEDS ORDERED: Dyna-Hex 2% Top Sol 2oz TOPIC SCH ×2 (20:00)
[2018-08-24] MEDS ORDERED: Heparin 5000 units/ml inj SUBQ SCH (21:00)
[2018-08-24] MEDS: Piperacillin/Tazobactam 4.5 GM in NS 110 ML IVPB SCH (21:16)
--- NOTE | 2018-08-24 21:35 | General Progress Note ---
Assessment/Plan Assessment/Plan Assessment - sepsis/hypotension - improved - leucocytosis - Diarrhea - resolved - abnormal LFT, ? result of sepsis - Melanoma - s/p cholecystectomy - ill defined liver changes on CT - doubt significance - Urolithiasis Recommendations - Abx per ID - check stool cultures - po diet as tolerated - follow labs and exam Subjective Allergies: Coded Allergies: No Known Allergies (Unverified , 08/22/18) Subjective Feels OK no abdominal complaints tolerating PO Objective Last 24 Hour Vital Signs Date Time Temp Pulse Resp B/P (MAP) Pulse Ox O2 Delivery O2 Flow Rate FiO2 08/24/18 20:20 58 08/24/18 20:00 97.9 58 18 144/86 (105) 95 08/24/18 20:00 Room Air 08/24/18 17:02 58 08/24/18 16:00 99.0 49 16 153/77 (102) 99 08/24/18 16:00 55 08/24/18 16:00 Room Air 08/24/18 15:00 56 20 158/90 (112) 98 08/24/18 14:00 60 17 166/93 (117) 100 08/24/18 14:00 60 17 141/85 (103) 100 08/24/18 13:00 68 17 166/93 (117) 99 08/24/18 12:00 98.6 63 16 154/107 (123) 99 08/24/18 12:00 Room Air 08/24/18 12:00 40 08/24/18 11:00 46 14 148/69 (95) 100 08/24/18 10:45 61 17 151/69 (96) 100 08/24/18 10:30 61 15 150/77 (101) 100 08/24/18 10:26 62 13 154/75 (101) 100 08/24/18 10:24 60 17 139/70 (93) 100 08/24/18 10:00 61 18 142/83 (102) 99 08/24/18 09:00 63 16 131/69 (89) 98 08/24/18 08:55 108 16 Room Air 08/24/18 08:00 65 12 103/51 (68) 96 08/24/18 08:00 68 08/24/18 08:00 Room Air 08/24/18 07:00 98.5 64 15 117/82 (94) 97 08/24/18 06:00 64 15 110/70 (83) 98 08/24/18 05:00 66 13 100/67 (78) 99 08/24/18 04:00 68 13 110/55 (73) 98 08/24/18 04:00 66 08/24/18 04:00 Room Air 08/24/18 03:00 67 17 114/65 (81) 99 08/24/18 02:00 65 14 110/60 (77) 97 08/24/18 01:00 98.6 69 13 116/76 (89) 98 08/24/18 00:00 70 08/24/18 00:00 60 15 100/60 (73) 100 08/24/18 00:00 Room Air 08/23/18 23:00 73 18 114/69 (84) 98 08/23/18 22:00 63 13 109/64 (79) 99 Intake and Output 08/23/18 08/24/18 18:59 06:59 Intake Total 1045 ml 1287.500 ml Output Total 2160 ml 760 ml Balance -1115 ml 527.500 ml Intake Oral 100 ml IV Total 1045 ml 1187.500 ml Output Urine Total 2160 ml 760 ml # Bowel Movements 1 Laboratory Tests 08/24/18 04:30: White Blood Count 18.1H, Red Blood Count 3.59L, Hemoglobin 10.7L, Hematocrit 31.1L, Mean Corpuscular Volume 87, Mean Corpuscular Hemoglobin 29.9, Mean Corpuscular Hemoglobin Concent 34.4, Red Cell Distribution Width 11.8, Platelet Count 93L, Mean Platelet Volume 7.5, Neutrophils (%) (Auto) , Lymphocytes (%) ( Auto) , Monocytes (%) (Auto) , Eosinophils (%) (Auto) , Basophils (%) (Auto) , Differential Total Cells Counted 100, Neutrophils % (Manual) 88H, Lymphocytes % (Manual) 5L, Monocytes % (Manual) 6, Eosinophils % (Manual) 0, Basophils % ( Manual) 0, Band Neutrophils 1, Platelet Estimate DecreasedL, Platelet Morphology Normal, Hypochromasia 1+, Sodium Level 141, Potassium Level 3.6, Chloride Level 109H, Carbon Dioxide Level 24, Anion Gap 8, Blood Urea Nitrogen 21H, Creatinine 1.1, Estimat Glomerular Filtration Rate , Glucose Level 162#H, Calcium Level 8.0L, Magnesium Level 2.4, Total Bilirubin 0.3, Aspartate Amino Transf (AST/SGOT) 99H, Alanine Aminotransferase (ALT/SGPT) 80H, Alkaline Phosphatase 50, Total Protein 6.9, Albumin 3.1L, Globulin 3.8, Albumin/Globulin Ratio 0.8L, Vancomycin Level Trough 13.1H, Hepatitis A IgM Antibody [Pending], Hepatitis B Surface Antigen [Pending], Hepatitis B Core IgM Antibody [Pending], Hepatitis C Antibody [Pending] 08/24/18 10:40: Lactic Acid Level 1.90 Height (Feet): 5 Height (Inches): 7.00 Weight (Pounds): 158 Objective Thin WM NAD NCAT supple Coars BS RR abd soft no edema non focal Francisco Delgadillo MD Aug 24, 2018 21:35
[2018-08-24] MEDS ORDERED: Hydrocortisone 100mg Inj IV SCH (22:00)
--- NOTE | 2018-08-24 22:32 | Consultation ---
History of Present Illness General Date patient seen: Aug 24, 2018 Chief Complaint: Altered Mental Status Reason for Consultation: abdominal distention Present Illness HPI 73 year old male with multiple medical comorbidities as noted in H&P presented for altered status. Upon admission was noted to have abdominal distention and has his metal status improved complained of abdominal fullness/discomfort. Surgery called to evaluate. patient seen, chart reviewed, patient examined. states that he ate a large meal prior to admission with contained beans. feels he may have over done it and since has been having a lot of "gas". similar prior episodes of similar meals but not this severe. no n/v/f/c passing flatus. Allergies: Coded Allergies: No Known Allergies (Unverified , 08/22/18) Medication History Scheduled Cephalexin* (Keflex*), 500 MG ORAL EVERY 6 HOURS Hydrocortisone (Cortef), 20 MG PO DAILY, (Reported) Hydrocortisone (Cortef), 10 MG ORAL BEDTIME, (Reported) Losartan Potassium (Losartan Potassium), 50 MG ORAL DAILY, (Reported) Metformin HCl (Metformin HCl), 500 MG PO BID, (Reported) Trimethoprim/Sulfamethoxazole (Bactrim Ds Tablet), 1 TAB ORAL TWICE A DAY Scheduled PRN Diphenhydramine HCl (Diphenhydramine HCl), 50 MG ORAL Q6H PRN for Itching Patient History History Provided By: Patient, Medical Record, PMD Healthcare decision maker Resuscitation status Full Code Advanced Directive on File No Past Medical/Surgical History Past Medical/Surgical History: (1) Abdominal distension (gaseous) (2) left arm cellulitis (3) Sepsis (4) Diabetes (5) Hypothyroidism (6) Adrenal insufficiency Review of Systems All Other Systems: negative except mentioned in HPI Physical Exam General Appearance: no apparent distress, alert Lines, tubes and drains: central line HEENT: mucous membranes moist Neck: normal inspection Respiratory/Chest: normal breath sounds, no respiratory distress Cardiovascular/Chest: normal rate Abdomen: non tender, soft, no organomegaly, no mass, decreased bowel sounds, distended Extremities: normal inspection Skin Exam: warm/dry Neurologic: alert, responsive Last 24 Hour Vital Signs Date Time Temp Pulse Resp B/P (MAP) Pulse Ox O2 Delivery O2 Flow Rate FiO2 08/24/18 20:20 58 08/24/18 20:00 97.9 58 18 144/86 (105) 95 08/24/18 20:00 Room Air 08/24/18 17:02 58 08/24/18 16:00 99.0 49 16 153/77 (102) 99 08/24/18 16:00 55 08/24/18 16:00 Room Air 08/24/18 15:00 56 20 158/90 (112) 98 08/24/18 14:00 60 17 166/93 (117) 100 08/24/18 14:00 60 17 141/85 (103) 100 08/24/18 13:00 68 17 166/93 (117) 99 08/24/18 12:00 98.6 63 16 154/107 (123) 99 08/24/18 12:00 Room Air 08/24/18 12:00 40 08/24/18 11:00 46 14 148/69 (95) 100 08/24/18 10:45 61 17 151/69 (96) 100 08/24/18 10:30 61 15 150/77 (101) 100 08/24/18 10:26 62 13 154/75 (101) 100 08/24/18 10:24 60 17 139/70 (93) 100 08/24/18 10:00 61 18 142/83 (102) 99 08/24/18 09:00 63 16 131/69 (89) 98 08/24/18 08:55 108 16 Room Air 08/24/18 08:00 65 12 103/51 (68) 96 08/24/18 08:00 68 08/24/18 08:00 Room Air 08/24/18 07:00 98.5 64 15 117/82 (94) 97 08/24/18 06:00 64 15 110/70 (83) 98 08/24/18 05:00 66 13 100/67 (78) 99 08/24/18 04:00 68 13 110/55 (73) 98 08/24/18 04:00 66 08/24/18 04:00 Room Air 08/24/18 03:00 67 17 114/65 (81) 99 08/24/18 02:00 65 14 110/60 (77) 97 08/24/18 01:00 98.6 69 13 116/76 (89) 98 08/24/18 00:00 70 08/24/18 00:00 60 15 100/60 (73) 100 08/24/18 00:00 Room Air 08/23/18 23:00 73 18 114/69 (84) 98 Intake and Output 08/23/18 08/24/18 18:59 06:59 Intake Total 1045 ml 1287.500 ml Output Total 2160 ml 760 ml Balance -1115 ml 527.500 ml Intake Oral 100 ml IV Total 1045 ml 1187.500 ml Output Urine Total 2160 ml 760 ml # Bowel Movements 1 Laboratory Tests Test 08/24/18 04:30 08/24/18 10:40 White Blood Count 18.1 K/UL (4.8-10.8) H Red Blood Count 3.59 M/UL (4.70-6.10) L Hemoglobin 10.7 G/DL (14.2-18.0) L Hematocrit 31.1 % (42.0-52.0) L Mean Corpuscular Volume 87 FL (80-99) Mean Corpuscular Hemoglobin 29.9 PG (27.0-31.0) Mean Corpuscular Hemoglobin Concent 34.4 G/DL (32.0-36.0) Red Cell Distribution Width 11.8 % (11.6-14.8) Platelet Count 93 K/UL (150-450) L Mean Platelet Volume 7.5 FL (6.5-10.1) Neutrophils (%) (Auto) % (45.0-75.0) Lymphocytes (%) (Auto) % (20.0-45.0) Monocytes (%) (Auto) % (1.0-10.0) Eosinophils (%) (Auto) % (0.0-3.0) Basophils (%) (Auto) % (0.0-2.0) Differential Total Cells Counted 100 Neutrophils % (Manual) 88 % (45-75) H Lymphocytes % (Manual) 5 % (20-45) L Monocytes % (Manual) 6 % (1-10) Eosinophils % (Manual) 0 % (0-3) Basophils % (Manual) 0 % (0-2) Band Neutrophils 1 % (0-8) Platelet Estimate Decreased L Platelet Morphology Normal Hypochromasia 1+ Sodium Level 141 MMOL/L (136-145) Potassium Level 3.6 MMOL/L (3.5-5.1) Chloride Level 109 MMOL/L (98-107) H Carbon Dioxide Level 24 MMOL/L (21-32) Anion Gap 8 mmol/L (5-15) Blood Urea Nitrogen 21 mg/dL (7-18) H Creatinine 1.1 MG/DL (0.55-1.30) Estimat Glomerular Filtration Rate mL/min (>60) Glucose Level 162 MG/DL (74-106) #H Calcium Level 8.0 MG/DL (8.5-10.1) L Magnesium Level 2.4 MG/DL (1.8-2.4) Total Bilirubin 0.3 MG/DL (0.2-1.0) Aspartate Amino Transf (AST/SGOT) 99 U/L (15-37) H Alanine Aminotransferase (ALT/SGPT) 80 U/L (12-78) H Alkaline Phosphatase 50 U/L (46-116) Total Protein 6.9 G/DL (6.4-8.2) Albumin 3.1 G/DL (3.4-5.0) L Globulin 3.8 g/dL Albumin/Globulin Ratio 0.8 (1.0-2.7) L Vancomycin Level Trough 13.1 ug/mL (5.0-12.0) H Hepatitis A IgM Antibody Pending Hepatitis B Surface Antigen Pending Hepatitis B Core IgM Antibody Pending Hepatitis C Antibody Pending Lactic Acid Level 1.90 mmol/L (0.4-2.0) Height (Feet): 5 Height (Inches): 7.00 Weight (Pounds): 158 Medications Current Medications Medications (Trade) Dose Ordered Sig/Elli Route PRN Reason Start Time Stop Time Status Last Admin Dose Admin Acetaminophen (Tylenol) 650 mg Q4H PRN RECTAL Mild Pain (Pain Scale 1-3) 08/24/18 17:03 09/21/18 17:02 Dextrose (Dextrose 50%) 25 ml Q30M PRN IV Hypoglycemia 08/24/18 17:30 09/21/18 23:29 Dextrose (Dextrose 50%) 50 ml Q30M PRN IV Hypoglycemia 08/24/18 17:30 09/21/18 23:29 Dextrose/ Electrolytes 1,000 ml @ 75 mls/hr [id number] IV 08/24/18 17:00 09/22/18 21:59 08/24/18 17:00 Guaifenesin/ Dextromethorphan (Robitussin DM Syrup) 5 ml Q6H PRN ORAL For Cough 08/24/18 17:04 09/23/18 17:03 Heparin Sodium (Porcine) (Heparin 5000 units/ml) 5,000 units EVERY 12 HOURS SUBQ 08/24/18 21:00 09/22/18 08:59 08/24/18 21:17 Hydrocortisone (Solu-CORTEF) 25 mg EVERY 8 HOURS IV 08/24/18 22:00 09/21/18 21:59 08/24/18 21:14 Insulin Aspart (NovoLOG) EVERY 6 HOURS SUBQ 08/24/18 18:00 09/22/18 00:00 08/24/18 18:16 Iopamidol (Isovue-300 100ml) 100 ml NOW PRN INJ RADIOLOGY 08/24/18 17:00 08/25/18 23:59 Levothyroxine Sodium (Synthroid) 150 mcg DAILY@0630 ORAL 08/25/18 06:30 09/22/18 06:29 Ondansetron HCl (Zofran) 4 mg Q4H PRN IVP Nausea & Vomiting 08/24/18 17:04 09/22/18 17:03 Pantoprazole (Protonix) 40 mg DAILY ORAL 08/25/18 09:00 09/24/18 08:59 Piperacillin Sod/ Tazobactam Sod 4.5 gm/Sodium Chloride 110 ml @ 27.5 mls/hr EVERY 8 HOURS IVPB 08/24/18 22:00 08/28/18 13:59 08/24/18 21:16 Vancomycin HCl (Vanco rx to dose) 1 ea DAILY PRN MISC Per rx protocol 08/25/18 09:00 09/21/18 19:44 Vancomycin HCl/ Dextrose 250 ml @ 166.667 mls/hr Q12H IVPB 08/25/18 04:00 08/29/18 15:59 Assessment/Plan Problem List: (1) Sepsis ICD Codes: A41.9 - Sepsis, unspecified organism SNOMED: 07169903 (2) Abdominal distension (gaseous) Assessment & Plan: Abdominal distention / discomfort. no n/v/f/c. +flatus. feels bloated. exam with mild distention/non tender CT - Mildly fluid-filled small bowel loops, nonspecific, No acute process otherwise, Postcholecystectomy changes. What are probably hepatic cysts adjacent to the gallbladder fossa mimics fluid in the gallbladder fossa on the axial views, but appear to be cysts on the coronal images. Nonetheless, biloma or other pathologic collection not completely excludable Multiple nonobstructive left renal calculi Sarmiento catheter Bilateral basilar pulmonary interstitial prominence, nonspecific Scoliosis and spondylosis KUB - Nonspecific prominent but not frankly dilated gas-filled small bowel loops , decreased from previous day's exam Satisfactory position right groin central venous catheter -no acute surgical intervention planned -okay for diet as tolerated -Rx as written -will follow clinically with exams thank you for allowing me to participate in patients care ICD Codes: R14.0 - Abdominal distension (gaseous) SNOMED: 292527431 David Daley Aug 24, 2018 22:32
--- NOTE | 2018-08-24 23:30 | Progress Note ---
DATE: 08/24/2018 CARDIOLOGY AND INTERNAL MEDICINE PROGRESS NOTE SUBJECTIVE: The patient is awake and alert. He has no pain. No nausea or vomiting. He does have some bloating of his abdomen and some gas. Hydrocortisone was decreased by filbert grower. The patient remains on insulin sliding scale. The patient's monitored rhythm sinus and sinus bradycardia with asymptomatic episodes of sinus bradycardia in the high 40s and 50s. OBJECTIVE: VITAL SIGNS: Blood pressure 153/77 and oxygen saturation 98% on room air. NECK: Supple. LUNGS: Clear. CARDIAC: Regular rhythm and rate. Normal S1 and S2. There is no murmur. ABDOMEN: Slightly distended, but soft. There is mild tympany. EXTREMITIES: Without edema. LABORATORY DATA: Cultures remain negative. White count 18 and hemoglobin 10.7. Lactic acid 1.9. Magnesium 2.4, now for its replacement. BUN 21, creatinine 1.1, and potassium 3.6. LFTs slightly elevated with AST and ALT 88/68 and normal alkaline phosphatase. Albumin 3.1. IMPRESSION: 1. Adrenal insufficiency. 2. Sepsis of unclear source. 3. Type 2 diabetes mellitus. 4. Hypothyroidism 5. Sinus bradycardia likely due to increased vagal tone due to abdominal symptoms. 6. Recovered shock likely due to sepsis and adrenal insufficiency, bacteremia likely blood culture contaminant. PLAN: 1. Antibiotics per Infectious Disease marine engineering consultant. 2. Steroid taper per his Endocrine. 3. Cardiac monitoring. No role for antiarrhythmics or pacemaker at this time. 4. Surgical evaluation of abdominal symptoms. GI follow up. 5. Advance diet. 6. DVT and stress ulcer prophylaxis. Nathaniel Bonilla M.D. DR: ERIKA JOB#: [id number] CC:
[2018-08-25] VITALS (15 sets, daily range): BP systolic 87–157; BP diastolic 47–78
[2018-08-25] MEDS ORDERED: Vancomycin 1250mg/D5W 250ml 250 ML IVPB SCH (04:00)
[2018-08-25] MEDS: Hydrocortisone 100mg Inj IV SCH (05:02)
[2018-08-25] MEDS: Piperacillin/Tazobactam 4.5 GM in NS 110 ML IVPB SCH (05:03)
[2018-08-25] MEDS: NovoLOG Insulin Flexpen SUBQ SCH ×3 (05:10→18:33)
[2018-08-25] MEDS: D5 1/2NS w/KCl 20mEq 1,000 ML IV SCH (05:16)
--- NOTE | 2018-08-25 07:09 | General Progress Note ---
Assessment/Plan Problem List: (1) Sepsis ICD Codes: A41.9 - Sepsis, unspecified organism SNOMED: 69769431 (2) Diabetes ICD Codes: E11.9 - Type 2 diabetes mellitus without complications SNOMED: 28371028 (3) Hypothyroidism ICD Codes: E03.9 - Hypothyroidism, unspecified SNOMED: 99711644 (4) Adrenal insufficiency ICD Codes: E27.40 - Unspecified adrenocortical insufficiency SNOMED: 79707568, 184707642 Assessment/Plan reduce IVHC to 25 mg every 12 hours - plan to convert to oral maintenance dose tomorrow continue Levothyroxine 150 mcg daily continue NISS Subjective Allergies: Coded Allergies: No Known Allergies (Unverified , 08/22/18) Subjective events noted - he is resting Objective Last 24 Hour Vital Signs Date Time Temp Pulse Resp B/P (MAP) Pulse Ox O2 Delivery O2 Flow Rate FiO2 08/25/18 04:00 64 08/25/18 04:00 97.4 85 20 157/78 (104) 94 08/25/18 04:00 Room Air 08/25/18 00:00 52 08/25/18 00:00 Room Air 08/24/18 23:12 97.6 66 16 140/85 (103) 96 08/24/18 20:20 58 08/24/18 20:00 97.9 58 18 144/86 (105) 95 08/24/18 20:00 Room Air 08/24/18 17:02 58 08/24/18 16:00 99.0 49 16 153/77 (102) 99 08/24/18 16:00 55 08/24/18 16:00 Room Air 08/24/18 15:00 56 20 158/90 (112) 98 08/24/18 14:00 60 17 166/93 (117) 100 08/24/18 14:00 60 17 141/85 (103) 100 08/24/18 13:00 68 17 166/93 (117) 99 08/24/18 12:00 98.6 63 16 154/107 (123) 99 08/24/18 12:00 Room Air 08/24/18 12:00 40 08/24/18 11:00 46 14 148/69 (95) 100 08/24/18 10:45 61 17 151/69 (96) 100 12/19/18 10:30 61 15 150/77 (101) 100 08/24/18 10:26 62 13 154/75 (101) 100 08/24/18 10:24 60 17 139/70 (93) 100 08/24/18 10:00 61 18 142/83 (102) 99 08/24/18 09:00 63 16 131/69 (89) 98 08/24/18 08:55 108 16 Room Air 08/24/18 08:00 65 12 103/51 (68) 96 08/24/18 08:00 68 08/24/18 08:00 Room Air Intake and Output 08/24/18 08/25/18 19:00 07:00 Intake Total 1212.5 ml 1120.167 ml Output Total 550 ml 2000 ml Balance 662.5 ml -879.833 ml Intake Oral 570 ml 240 ml IV Total 642.5 ml 880.167 ml Output Urine Total 550 ml 2000 ml # Bowel Movements 8 Laboratory Tests 08/24/18 10:40: Lactic Acid Level 1.90 08/25/18 06:53: Arterial Blood pH 7.445, Arterial Blood Partial Pressure CO2 28.9L, Arterial Blood Partial Pressure O2 40.1*L, Arterial Blood HCO3 19.4L, Arterial Blood Oxygen Saturation 76.2*L, Arterial Blood Base Excess -3.4L, Danny Test Positive Height (Feet): 5 Height (Inches): 7.00 Weight (Pounds): 158 General Appearance: no apparent distress Neck: normal alignment Cardiovascular: normal rate Respiratory/Chest: lungs clear Abdomen: normal bowel sounds Objective Current Medications Medications (Trade) Dose Ordered Sig/Elli Route PRN Reason Start Time Stop Time Status Last Admin Dose Admin Acetaminophen (Tylenol) 650 mg Q4H PRN RECTAL Mild Pain (Pain Scale 1-3) 08/24/18 17:03 09/21/18 17:02 Dextrose (Dextrose 50%) 25 ml Q30M PRN IV Hypoglycemia 08/24/18 17:30 09/21/18 23:29 Dextrose (Dextrose 50%) 50 ml Q30M PRN IV Hypoglycemia 08/24/18 17:30 09/21/18 23:29 Dextrose/ Electrolytes 1,000 ml @ 75 mls/hr [id number] IV 08/24/18 17:00 09/22/18 21:59 08/25/18 05:16 Guaifenesin/ Dextromethorphan (Robitussin DM Syrup) 5 ml Q6H PRN ORAL For Cough 08/24/18 17:04 09/23/18 17:03 Heparin Sodium (Porcine) (Heparin 5000 units/ml) 5,000 units EVERY 12 HOURS SUBQ 08/24/18 21:00 09/22/18 08:59 08/24/18 21:17 Hydrocortisone (Solu-CORTEF) 25 mg EVERY 8 HOURS IV 08/24/18 22:00 09/21/18 21:59 08/25/18 05:02 Insulin Aspart (NovoLOG) EVERY 6 HOURS SUBQ 08/24/18 18:00 09/22/18 00:00 08/24/18 23:05 Iopamidol (Isovue-300 100ml) 100 ml NOW PRN INJ RADIOLOGY 08/24/18 17:00 08/25/18 23:59 Levothyroxine Sodium (Synthroid) 150 mcg DAILY@0630 ORAL 08/25/18 06:30 09/22/18 06:29 08/25/18 05:33 Ondansetron HCl (Zofran) 4 mg Q4H PRN IVP Nausea & Vomiting 08/24/18 17:04 09/22/18 17:03 Pantoprazole (Protonix) 40 mg DAILY ORAL 08/25/18 09:00 09/24/18 08:59 Piperacillin Sod/ Tazobactam Sod 4.5 gm/Sodium Chloride 110 ml @ 27.5 mls/hr EVERY 8 HOURS IVPB 08/24/18 22:00 08/28/18 13:59 08/25/18 05:03 Vancomycin HCl (Vanco rx to dose) 1 ea DAILY PRN MISC Per rx protocol 08/25/18 09:00 09/21/18 19:44 Vancomycin HCl/ Dextrose 250 ml @ 166.667 mls/hr Q12H IVPB 08/25/18 04:00 08/29/18 15:59 08/25/18 05:03 Item Value Date Time Bedside Blood Glucose 78 mg/dl 08/25/18 0510 Bedside Blood Glucose 131 mg/dl H 08/24/18 2313 Bedside Blood Glucose 233 mg/dl H 08/24/18 1816 Bedside Blood Glucose 199 mg/dl H 08/24/18 1215 Bedside Blood Glucose 179 mg/dl H 08/24/18 0629 Bedside Blood Glucose 180 mg/dl H 08/24/18 0000 Stanford Baca MD Aug 25, 2018 07:09
[2018-08-25] MEDS ORDERED: Albuterol/Ipratropium 3ml neb HHN SCH ×2 (07:15→11:00)
--- NOTE | 2018-08-25 07:39 | NUR ---
NURSE NOTES: Contacted Dr. Harding and Dr. Bonilla regarding pt decreasing o2 sat. Declining to 60% on RA. Called RT who placed pt on NRB. Pt also c/o cough and blood tinged sputum. Ordered STAT CXR, 20 mg lasix IV push, duoneb treatment.
--- NOTE | 2018-08-25 07:41 | NUR ---
HAND-OFF: Report given to FAY Amado. Pt is sating well, 90% on NRB.
--- NOTE | 2018-08-25 07:42 | NUR ---
NURSE NOTES: Received patient from FAY Diane. Patient in bed, alert, and awake. On nonrebreather mask 100% with 02 sat of 90%. dye house hand in placed. Sarmiento catheter in placed and draining well. IV sites are asymptomatic. Will be transferred to ICU per caustic cresylate shift superintendent nurse due to decrease of 02 sat. Bed in lowest position with side rails up. Will continue to follow plan of care.
--- NOTE | 2018-08-25 08:00 | NUR ---
NURSE NOTES: Received patient from FAY cat. Patient in bed, alert. On nonrebreather mask 100% with 02 sat of 90%. monitoring analyst in placed. rhonchi bilateral. per pt coughing up sputum all night. sob, tachypneic. abdomen soft, non tender. Sarmiento catheter in placed and draining well. IV 20g LT FA, asymptomatic. Bed in lowest position with side rails up. Will continue to follow plan of care.
[2018-08-25] MEDS ORDERED: Albuterol/Ipratropium 3ml neb HHN ONE (08:15)
--- NOTE | 2018-08-25 08:15 | NUR ---
TRANSFER TO FLOOR: Patient transferred to ICU, per Dr. Bonilla. Report given to FAY Doyle. Belongings and medications given to Yanira APONTE.
--- NOTE | 2018-08-25 08:20 | NUR ---
NURSE NOTES: RADIOLOGY HERE TO DO CXR.
--- NOTE | 2018-08-25 08:24 | NUR ---
NURSE NOTES: RECEIVED CALL FROM MD MARES, WAS UPDATED ON ABG RESULTS PH 7.445, CO2 28.9, 02 40.1 HCO3 19.4. PT FATIGUED. TEMP 100.3. RECEIVED ORDER TO INPUT STAT ABG 19/01 FI02 100%, ABG 1 HR POST APPLICATION.
[2018-08-25] MEDS ORDERED: Guaifenesin/DM 10ml syrup ORAL PRN (08:30)
[2018-08-25] MEDS ORDERED: D5 1/2NS w/KCl 20mEq 1,000 ML IV SCH (08:45)
--- NOTE | 2018-08-25 08:56 | NUR ---
NURSE NOTES: INFORMED MD KRUEGER THAT BIPAP WAS ORDERED, DUE TO TIME ABG WAS TAKEN MD REQUEST TITRATION TO KEEP 02SAT >92% FOR NOW. NEW ORDER WAS PLACED.
[2018-08-25] MEDS ORDERED: Pantoprazole Inj IVP SCH (09:00)
[2018-08-25] MEDS ORDERED: Acetaminophen 650 MG SUPP RECTAL PRN (09:15)
--- NOTE | 2018-08-25 09:19 | NUR ---
RESPIRATORY NOTE: Received pt on non- rebreather 15L 100% FiO2, saturates at 87-88%. One breathing treatment given at 0740, saturation went up to 93%. Pt was transferred to ICU. FAY Doyle informed that BIPAP was order but MD Bonilla wanted to wait, and titrate FiO2 down first to keep saturation above 92%. Pt is still on non rebreather 100% FiO2 15L cause SPO2 at 93-94%. Will continue to monitor and titrate the FiO2 down.
--- NOTE | 2018-08-25 09:30 | NUR ---
NURSE NOTES: RECEIVED CALL FROM SON SAI FERRARO, WAS UPDATED ON PT STATUS AND REQUESTED MD KRUEGER TO CALL MD ONCOLOGIST MOOSE AT [phone] , HE WOULD LIKE TO SPEAK TO HIM REGARDING SOME MATTERS.
[2018-08-25 09:48] LABS: ANION GAP 11 mmol/L (5-15); BLOOD UREA NITROGEN 22 mg/dL (7-18); CALCIUM 8.6 MG/DL (8.5-10.1); CARBON DIOXIDE 24 MMOL/L (21-32); CHLORIDE 109 MMOL/L (98-107); CREATININE 1.3 MG/DL (0.55-1.30); POTASSIUM 3.1 MMOL/L (3.5-5.1); SODIUM 144 MMOL/L (136-145)
[2018-08-25 09:50] LABS: HEMATOCRIT 42.4 % (42.0-52.0); HEMOGLOBIN 13.9 G/DL (14.2-18.0); MEAN CORPUSCULAR VOLUME 88 FL (80-99); PLATELET COUNT 112 K/UL (150-450); RED BLOOD COUNT 4.82 M/UL (4.70-6.10); WHITE BLOOD COUNT 16.8 K/UL (4.8-10.8)
--- NOTE | 2018-08-25 10:12 | Diagnostic Imaging Report ---
Indication: Dyspnea Technique: XRAY Chest 1v Comparison: 08/23/2018 Findings: Significant worsening of aeration with interval development of dense airspace opacities in the medial right mid/lower lung. Some patchy opacities are also noted in the right upper lung. Some interstitial opacities are also noted in the perihilar region on the left. No radiographic appreciable pleural effusion. No pneumothorax. Degenerative change of the spine. Heart size and mediastinal contours are stable. Surgical clips noted in the right upper quadrant and left neck. Impression: Interval worsening of aeration with development of dense airspace opacities in the medial right mid/lower lung and patchy opacities in the right upper lung concerning for multifocal pneumonia. Perihilar interstitial opacities in the left raise question for a degree of underlying congestion/fluid overload. Clinical correlation/follow-up recommended. Findings discussed with ordering physician Dr. Bonilla at time of dictation of the final report.
--- NOTE | 2018-08-25 10:20 | NUR ---
NURSE NOTES: MD MARES HERE TO SEE PT. WAS UPDATED ON PATI ORDERS REGARDING BIPAP STANDBY. WILL PLACE OWN ADDITIONAL ORDERS.
--- NOTE | 2018-08-25 10:28 | Pulmonology Progress Note ---
Assessment/Plan Assessment/Plan IMPRESSION: 1. Malignant melanoma. 2. Ingham's disease. 3. Sepsis? 4. Hypotension. 5. Worsening CXR and hypoxemia; suspect pulm edema DISCUSSION: Agree with admission and care. The patient most importantly needs fluid and steroid because of hypocortisolism. Add further diuresis. I will follow carefully. Discussed with Dr Bonilla Aj Harding M.D. Subjective Interval Events: worsening hypoxemia; iomproved with NRBM Constitutional: Reports: no symptoms HEENT: Repors: no symptoms Respiratory: Reports: no symptoms Cardiovascular: Reports: no symptoms Gastrointestinal/Abdominal: Reports: no symptoms Genitourinary: Reports: no symptoms Allergies: Coded Allergies: No Known Allergies (Unverified , 08/22/18) Objective Last 24 Hour Vital Signs Date Time Temp Pulse Resp B/P (MAP) Pulse Ox O2 Delivery O2 Flow Rate FiO2 08/25/18 08:00 99.2 85 24 130/77 (94) 90 08/25/18 08:00 Room Air 15.0 Non-Rebreather 15.0 Non-Rebreather 08/25/18 08:00 Non-Rebreather 15.0 Non-Rebreather 15.0 Non-Rebreather 15.0 08/25/18 07:50 77 28 93 Non-Rebreather 15.0 100 08/25/18 07:41 76 08/25/18 07:40 77 26 89 Non-Rebreather 15.0 100 08/25/18 07:35 77 26 Non-Rebreather 15.0 100 08/25/18 04:00 64 08/25/18 04:00 97.4 85 20 157/78 (104) 94 08/25/18 04:00 Room Air 08/25/18 00:00 52 08/25/18 00:00 Room Air 08/24/18 23:12 97.6 66 16 140/85 (103) 96 08/24/18 20:20 58 08/24/18 20:00 97.9 58 18 144/86 (105) 95 08/24/18 20:00 Room Air 08/24/18 17:02 58 08/24/18 16:00 99.0 49 16 153/77 (102) 99 08/24/18 16:00 55 08/24/18 16:00 Room Air 08/24/18 15:00 56 20 158/90 (112) 98 08/24/18 14:00 60 17 166/93 (117) 100 08/24/18 14:00 60 17 141/85 (103) 100 08/24/18 13:00 68 17 166/93 (117) 99 08/24/18 12:00 98.6 63 16 154/107 (123) 99 08/24/18 12:00 Room Air 08/24/18 12:00 40 08/24/18 11:00 46 14 148/69 (95) 100 08/24/18 10:45 61 17 151/69 (96) 100 08/24/18 10:30 61 15 150/77 (101) 100 Intake and Output 08/24/18 08/25/18 19:00 07:00 Intake Total 1212.5 ml 1348.515 ml Output Total 550 ml 2000 ml Balance 662.5 ml -651.485 ml Intake Oral 570 ml 240 ml IV Total 642.5 ml 1108.515 ml Output Urine Total 550 ml 2000 ml # Bowel Movements 8 General Appearance: no acute distress HEENT: normocephalic Respiratory/Chest: chest wall non-tender, decreased breath sounds Cardiovascular: normal peripheral pulses, normal rate Abdomen: normal bowel sounds Microbiology Date/Time Source Procedure Growth Status 08/23/18 16:00 Blood Blood Culture - Preliminary NO GROWTH AFTER 24 HOURS Resulted 08/23/18 15:45 Blood Blood Culture - Preliminary NO GROWTH AFTER 24 HOURS Resulted 08/22/18 16:05 Blood Blood Culture - Preliminary NO GROWTH AFTER 48 HOURS Resulted 08/22/18 15:55 Blood Blood Culture - Preliminary Staphylococcus Sp Coag Neg Resulted 08/22/18 20:30 Nasal Nares MRSA Culture - Final NO METHICILLIN RESISTANT STAPH AUREUS... Complete 08/22/18 15:55 Nasal Nares Influenza Types A,B Antigen (NELDA) - Final Complete 08/22/18 20:30 Rectum VRE Culture - Final NO VANCOMYCIN RESISTANT ENTEROCOCCUS ... Complete 08/22/18 20:30 Rectum - Final NO CARBAPENEM-RESISTANT ENTEROBACTERI... Complete Laboratory Tests 08/24/18 10:40: Lactic Acid Level 1.90 08/25/18 06:53: Arterial Blood pH 7.445, Arterial Blood Partial Pressure CO2 28.9L, Arterial Blood Partial Pressure O2 40.1*L, Arterial Blood HCO3 19.4L, Arterial Blood Oxygen Saturation 76.2*L, Arterial Blood Base Excess -3.4L, Danny Test Positive 08/25/18 09:15: White Blood Count 16.8H, Red Blood Count 4.82, Hemoglobin 13.9L, Hematocrit 42.4 #, Mean Corpuscular Volume 88, Mean Corpuscular Hemoglobin 28.9, Mean Corpuscular Hemoglobin Concent 32.9, Red Cell Distribution Width 12.0, Platelet Count 112L, Mean Platelet Volume 7.5, Neutrophils (%) (Auto) , Lymphocytes (%) ( Auto) , Monocytes (%) (Auto) , Eosinophils (%) (Auto) , Basophils (%) (Auto) , Neutrophils % (Manual) [Pending], Lymphocytes % (Manual) [Pending], Platelet Estimate [Pending], Platelet Morphology [Pending], Sodium Level 144, Potassium Level 3.1L, Chloride Level 109H, Carbon Dioxide Level 24, Anion Gap 11, Blood Urea Nitrogen 22H, Creatinine 1.3, Estimat Glomerular Filtration Rate , Glucose Level 105, Calcium Level 8.6, Magnesium Level 2.0, Pro-B-Type Natriuretic Peptide 6574H Current Medications Medications (Trade) Dose Ordered Sig/Elli Route PRN Reason Start Time Stop Time Status Last Admin Dose Admin Acetaminophen (Tylenol) 650 mg Q4H PRN ORAL Mild Pain/Temp > 100.5 08/25/18 08:45 09/24/18 08:44 08/25/18 09:18 Albuterol/ Ipratropium (Albuterol/ Ipratropium) 3 ml Q4HRT HHN 08/25/18 11:00 08/30/18 10:59 Dextrose (Dextrose 50%) 25 ml Q30M PRN IV Hypoglycemia 08/25/18 08:30 09/21/18 23:29 Dextrose (Dextrose 50%) 50 ml Q30M PRN IV Hypoglycemia 08/25/18 08:30 09/21/18 23:29 Guaifenesin/ Dextromethorphan (Robitussin DM Syrup) 5 ml Q6H PRN ORAL For Cough 08/25/18 08:30 09/23/18 08:29 Heparin Sodium (Porcine) (Heparin 5000 units/ml) 5,000 units EVERY 12 HOURS SUBQ 08/25/18 09:00 09/22/18 08:59 Hydrocortisone (Solu-CORTEF) 25 mg EVERY 12 HOURS IV 08/25/18 21:00 09/21/18 21:59 Insulin Aspart (NovoLOG) EVERY 6 HOURS SUBQ 08/25/18 12:00 09/22/18 00:00 Iopamidol (Isovue-300 100ml) 100 ml NOW PRN INJ RADIOLOGY 08/25/18 17:00 08/26/18 16:59 Levothyroxine Sodium (Synthroid) 150 mcg DAILY@0630 ORAL 08/26/18 06:30 09/22/18 06:29 Ondansetron HCl (Zofran) 4 mg Q4H PRN IVP Nausea & Vomiting 08/25/18 09:15 09/22/18 17:03 Pantoprazole (Protonix) 40 mg DAILY ORAL 08/25/18 09:00 09/24/18 08:59 08/25/18 09:17 Piperacillin Sod/ Tazobactam Sod 4.5 gm/Sodium Chloride 110 ml @ 27.5 mls/hr EVERY 8 HOURS IVPB 08/25/18 14:00 08/28/18 13:59 Vancomycin HCl (Vanco rx to dose) 1 ea DAILY PRN MISC Per rx protocol 08/25/18 09:00 09/21/18 19:44 Vancomycin HCl/ Dextrose 250 ml @ 166.667 mls/hr Q12H IVPB 08/25/18 16:00 08/29/18 15:59 Aj Harding MD Aug 25, 2018 10:28
--- NOTE | 2018-08-25 10:30 | NUR ---
NURSE NOTES: PT ON VENTURI MASK 10L 40%. 02SAT 95%. VSS. PT RESTING IN BED, EYES CLOSED
--- NOTE | 2018-08-25 10:40 | NUR ---
NURSE NOTES: 2D ECHO UNDERWAY. VSS. WILL CONTINUE TO MONITOR.
[2018-08-25] MEDS: Albuterol/Ipratropium 3ml neb HHN SCH ×4 (11:07→22:50)
--- NOTE | 2018-08-25 11:10 | NUR ---
NURSE NOTES: DUPLEX OF LOWER EXTREMITIES UNDERWAY. PT IN NO ACUTE DISTRESS.
[2018-08-25] MEDS: Heparin 5000 units/ml inj SUBQ SCH ×2 (11:53→21:00)
--- NOTE | 2018-08-25 12:25 | NUR ---
NURSE NOTES: CALLED [facility] AND LEFT MESSAGE WITH ELAYNEA REGARDING K 3.1, AND SON SAI LEFT ONCOLOGIST NUMBER FROM [facility] OFFICE. MD VIRK [phone] WOULD LIKE TO SPEAK WITH MD KRUEGER. AWAITING CALL BACK..
--- NOTE | 2018-08-25 12:43 | NUR ---
RESPIRATORY NOTE: pt has been switched to NC 4L with current spo2 of 92%. will cont to monitor
[2018-08-25] MEDS ORDERED: Piperacillin/Tazobactam 4.5 GM in NS 110 ML IVPB SCH (14:00)
--- NOTE | 2018-08-25 14:37 | Infectious Diseases Prog Note ---
Assessment/Plan Assessment/Plan ASSESSMENT/PLAN: 1. 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 hcap, ? aspiration - change abx to meropenem and vancomycin - check cultures - steroids - monitor labs, bp, temps - icu care - 2. The patient has a history of adrenal insufficiency. 3. History of melanoma in remission. 4. History of biliary sepsis, status post cholecystectomy. 5. Hypothyroidism. 6. Hypertension. 7. Diabetes. 8. History of cancer, which I believe is the melanoma. 9. Past medical history noted. 10. No known drug allergies. 11. Social history is negative. 12. Family history is negative. 13. MAR was noted. 14. Case was discussed with RN. 15. Case was discussed with Dr. Bonilla. 16. Case was discussed with the patient's family. 17. The patient was seen in the emergency room 18. The patient will need ICU care. 19. Continue treatment per primary consultants. 20. Notes and records were noted. 21. Orders were entered. 22. Case was discussed with pharmacy. 23. Skin care protocol. Subjective Constitutional: Reports: fever HEENT: Reports: congestion Respiratory: Reports: shortness of breath, dry cough Cardiovascular: Denies: chest pain Genitourinary: Denies: dysuria, hematuria Allergies: Coded Allergies: No Known Allergies (Unverified , 08/22/18) Objective Vital Signs Last 24 Hour Vital Signs Date Time Temp Pulse Resp B/P (MAP) Pulse Ox O2 Delivery O2 Flow Rate FiO2 08/25/18 13:00 85 24 130/77 (94) 90 08/25/18 12:00 100.0 74 25 105/54 (71) 93 08/25/18 12:00 75 08/25/18 12:00 Non-Rebreather 15.0 Non-Rebreather 15.0 Non-Rebreather 15.0 08/25/18 11:19 82 22 96 Venturi Mask 12.0 50 08/25/18 11:07 77 22 99 Non-Rebreather 15.0 100 08/25/18 11:00 80 25 101/58 (72) 95 08/25/18 10:00 79 24 111/59 (76) 98 12/20/18 09:48 100.0 08/25/18 09:00 100.3 77 27 111/64 (80) 99 08/25/18 08:00 99.2 85 24 130/77 (94) 90 08/25/18 08:00 Room Air 15.0 Non-Rebreather 15.0 Non-Rebreather 08/25/18 08:00 Non-Rebreather 15.0 Non-Rebreather 15.0 Non-Rebreather 15.0 08/25/18 07:50 77 28 93 Non-Rebreather 15.0 100 08/25/18 07:41 76 08/25/18 07:40 77 26 89 Non-Rebreather 15.0 100 08/25/18 07:35 77 26 Non-Rebreather 15.0 100 08/25/18 04:00 64 08/25/18 04:00 97.4 85 20 157/78 (104) 94 08/25/18 04:00 Room Air 08/25/18 00:00 52 08/25/18 00:00 Room Air 08/24/18 23:12 97.6 66 16 140/85 (103) 96 08/24/18 20:20 58 08/24/18 20:00 97.9 58 18 144/86 (105) 95 08/24/18 20:00 Room Air 08/24/18 17:02 58 08/24/18 16:00 99.0 49 16 153/77 (102) 99 08/24/18 16:00 55 08/24/18 16:00 Room Air 08/24/18 15:00 56 20 158/90 (112) 98 Height (Feet): 5 Height (Inches): 7.00 Weight (Pounds): 156 General Appearance: no acute distress HEENT: normocephalic, atraumatic, anicteric Respiratory/Chest: crackles/rales, rhonchi - bilaterally Cardiovascular: normal rate, regular rhythm Abdomen: soft, non tender, no organomegaly Objective CT scan of abdomen and pelvis: Impression: Mildly fluid-filled small bowel loops, nonspecific No acute process otherwise Postcholecystectomy changes. What are probably hepatic cysts adjacent to the gallbladder fossa mimics fluid in the gallbladder fossa on the axial views, but appear to be cysts on the coronal images. Nonetheless, biloma or other pathologic collection not completely excludable Multiple nonobstructive left renal calculi Sarmiento catheter Bilateral basilar pulmonary interstitial prominence, nonspecific Scoliosis and spondylosis Chest x-ray - nad x 2, reports noted Chest x-ray - 08/25/18 Impression: Interval worsening of aeration with development of dense airspace opacities in the medial right mid/lower lung and patchy opacities in the right upper lung concerning for multifocal pneumonia. Perihilar interstitial opacities in the left raise question for a degree of underlying congestion/fluid overload. Clinical correlation/follow-up recommended. Findings discussed with ordering physician Dr. Bonilla at time of dictation of the final report. Microbiology Date/Time Source Procedure Growth Status 08/23/18 16:00 Blood Blood Culture - Preliminary NO GROWTH AFTER 24 HOURS Resulted 08/23/18 15:45 Blood Blood Culture - Preliminary NO GROWTH AFTER 24 HOURS Resulted 08/22/18 16:05 Blood Blood Culture - Preliminary NO GROWTH AFTER 48 HOURS Resulted 08/22/18 15:55 Blood Blood Culture - Preliminary Staphylococcus Sp Coag Neg Resulted 08/22/18 20:30 Nasal Nares MRSA Culture - Final NO METHICILLIN RESISTANT STAPH AUREUS... Complete 08/22/18 15:55 Nasal Nares Influenza Types A,B Antigen (NELDA) - Final Complete 08/22/18 20:30 Rectum VRE Culture - Final NO VANCOMYCIN RESISTANT ENTEROCOCCUS ... Complete 08/22/18 20:30 Rectum - Final NO CARBAPENEM-RESISTANT ENTEROBACTERI... Complete Laboratory Tests Test 08/25/18 06:53 08/25/18 09:15 Arterial Blood pH 7.445 (7.350-7.450) Arterial Blood Partial Pressure CO2 28.9 mmHg (35.0-45.0) L Arterial Blood Partial Pressure O2 40.1 mmHg (75.0-100.0) Arterial Blood HCO3 19.4 mmol/L (22.0-26.0) L Arterial Blood Oxygen Saturation 76.2 % (95-100) *L Arterial Blood Base Excess -3.4 (-2-2) L Danny Test Positive White Blood Count 16.8 K/UL (4.8-10.8) H Red Blood Count 4.82 M/UL (4.70-6.10) Hemoglobin 13.9 G/DL (14.2-18.0) L Hematocrit 42.4 % (42.0-52.0) # Mean Corpuscular Volume 88 FL (80-99) Mean Corpuscular Hemoglobin 28.9 PG (27.0-31.0) Mean Corpuscular Hemoglobin Concent 32.9 G/DL (32.0-36.0) Red Cell Distribution Width 12.0 % (11.6-14.8) Platelet Count 112 K/UL (150-450) L Mean Platelet Volume 7.5 FL (6.5-10.1) Neutrophils (%) (Auto) % (45.0-75.0) Lymphocytes (%) (Auto) % (20.0-45.0) Monocytes (%) (Auto) % (1.0-10.0) Eosinophils (%) (Auto) % (0.0-3.0) Basophils (%) (Auto) % (0.0-2.0) Differential Total Cells Counted 100 Neutrophils % (Manual) 80 % (45-75) H Lymphocytes % (Manual) 5 % (20-45) L Monocytes % (Manual) 5 % (1-10) Eosinophils % (Manual) 0 % (0-3) Basophils % (Manual) 0 % (0-2) Band Neutrophils 10 % (0-8) H Platelet Estimate Decreased L Platelet Morphology Normal Red Blood Cell Morphology Normal Sodium Level 144 MMOL/L (136-145) Potassium Level 3.1 MMOL/L (3.5-5.1) L Chloride Level 109 MMOL/L (98-107) H Carbon Dioxide Level 24 MMOL/L (21-32) Anion Gap 11 mmol/L (5-15) Blood Urea Nitrogen 22 mg/dL (7-18) H Creatinine 1.3 MG/DL (0.55-1.30) Estimat Glomerular Filtration Rate mL/min (>60) Glucose Level 105 MG/DL (74-106) Calcium Level 8.6 MG/DL (8.5-10.1) Magnesium Level 2.0 MG/DL (1.8-2.4) Pro-B-Type Natriuretic Peptide 6574 pg/mL (0-125) H Current Medications Medications (Trade) Dose Ordered Sig/Elli Route PRN Reason Start Time Stop Time Status Last Admin Dose Admin Acetaminophen (Tylenol) 650 mg Q4H PRN ORAL Mild Pain/Temp > 100.5 08/25/18 08:45 09/24/18 08:44 12/20/18 09:18 Albuterol/ Ipratropium (Albuterol/ Ipratropium) 3 ml Q4HRT HHN 08/25/18 11:00 08/30/18 10:59 08/25/18 11:07 Dextrose (Dextrose 50%) 25 ml Q30M PRN IV Hypoglycemia 08/25/18 08:30 09/21/18 23:29 Dextrose (Dextrose 50%) 50 ml Q30M PRN IV Hypoglycemia 08/25/18 08:30 09/21/18 23:29 Guaifenesin/ Dextromethorphan (Robitussin DM Syrup) 5 ml Q6H PRN ORAL For Cough 08/25/18 08:30 09/23/18 08:29 Heparin Sodium (Porcine) (Heparin 5000 units/ml) 5,000 units EVERY 12 HOURS SUBQ 08/25/18 09:00 09/22/18 08:59 08/25/18 11:53 Hydrocortisone (Solu-CORTEF) 25 mg EVERY 12 HOURS IV 08/25/18 21:00 09/21/18 21:59 Insulin Aspart (NovoLOG) EVERY 6 HOURS SUBQ 08/25/18 12:00 09/22/18 00:00 08/25/18 12:07 Iopamidol (Isovue-300 100ml) 100 ml NOW PRN INJ RADIOLOGY 08/25/18 17:00 08/26/18 16:59 Levothyroxine Sodium (Synthroid) 150 mcg DAILY@0630 ORAL 08/26/18 06:30 09/22/18 06:29 Ondansetron HCl (Zofran) 4 mg Q4H PRN IVP Nausea & Vomiting 08/25/18 09:15 09/22/18 17:03 Pantoprazole (Protonix) 40 mg DAILY ORAL 08/25/18 09:00 09/24/18 08:59 08/25/18 09:17 Piperacillin Sod/ Tazobactam Sod 4.5 gm/Sodium Chloride 110 ml @ 27.5 mls/hr EVERY 8 HOURS IVPB 08/25/18 14:00 08/28/18 13:59 08/25/18 14:06 Potassium Chloride (K-Dur) 20 meq Q2H ORAL 08/25/18 14:00 08/25/18 18:01 08/25/18 14:05 Vancomycin HCl (Vanco rx to dose) 1 ea DAILY PRN MISC Per rx protocol 08/25/18 09:00 09/21/18 19:44 Vancomycin HCl/ Dextrose 250 ml @ 166.667 mls/hr Q12H IVPB 08/25/18 16:00 08/29/18 15:59 Treasure Vargas MD Aug 25, 2018 14:37
[2018-08-25] MEDS ORDERED: NS 275ml ONE (15:21)
[2018-08-25] MEDS ORDERED: Tubing IV Secondary IV ONE (15:21)
[2018-08-25] MEDS ORDERED: Sterile Water Irrig 1000ml IRRIG ONE (15:21)
--- NOTE | 2018-08-25 15:41 | NUR ---
RESPIRATORY NOTE: MD order sputum from pt, asked pt if nasally sxn would be okay, pt refused. RNYanira was in room when pt refused. asked pt to cough up sputum/phlegm if possible since he refused nasal sxn.
[2018-08-25] MEDS: Vancomycin 1250mg/D5W 250ml 250 ML IVPB SCH (16:47)
[2018-08-25 16:48] LABS: APPEARANCE,URINE CLEAR; BILIRUBIN, URINE NEGATIVE (NEGATIVE); COLOR,URINE PALE YELLOW; GLUCOSE, URINE (UA) NEGATIVE (NEGATIVE); KETONES,URINE NEGATIVE (NEGATIVE); LEUKOCYTE ESTERASE ,URINE NEGATIVE (NEGATIVE); NITRITE,URINE NEGATIVE (NEGATIVE); PH,URINE 5 (4.5-8.0); PROTEIN,URINE NEGATIVE (NEGATIVE); UROBILINOGEN,URINE NORMAL MG/DL (0.0-1.0)
--- NOTE | 2018-08-25 16:56 | General Surgery Progress Note ---
General Surgery-Progress Note Subjective Additional Comments transferred back to ICU. became short of breath last night. abd stable. Objective Last 24 Hour Vital Signs Date Time Temp Pulse Resp B/P (MAP) Pulse Ox O2 Delivery O2 Flow Rate FiO2 08/25/18 16:00 Non-Rebreather 15.0 Non-Rebreather 15.0 Non-Rebreather 15.0 08/25/18 15:36 87 26 93 Venturi Mask 12.0 50 08/25/18 15:27 86 24 93 Venturi Mask 12.0 50 08/25/18 13:00 85 24 130/77 (94) 90 08/25/18 12:00 100.0 74 25 105/54 (71) 93 08/25/18 12:00 75 08/25/18 12:00 Non-Rebreather 15.0 Non-Rebreather 15.0 Non-Rebreather 15.0 08/25/18 11:19 82 22 96 Venturi Mask 12.0 50 08/25/18 11:07 77 22 99 Non-Rebreather 15.0 100 08/25/18 11:00 80 25 101/58 (72) 95 08/25/18 10:00 79 24 111/59 (76) 98 08/25/18 09:48 100.0 08/25/18 09:00 100.3 77 27 111/64 (80) 99 08/25/18 08:00 99.2 85 24 130/77 (94) 90 08/25/18 08:00 Room Air 15.0 Non-Rebreather 15.0 Non-Rebreather 08/25/18 08:00 Non-Rebreather 15.0 Non-Rebreather 15.0 Non-Rebreather 15.0 08/25/18 07:50 77 28 93 Non-Rebreather 15.0 100 08/25/18 07:41 76 08/25/18 07:40 77 26 89 Non-Rebreather 15.0 100 08/25/18 07:35 77 26 Non-Rebreather 15.0 100 08/25/18 04:00 64 08/25/18 04:00 97.4 85 20 157/78 (104) 94 08/25/18 04:00 Room Air 08/25/18 00:00 52 08/25/18 00:00 Room Air 08/24/18 23:12 97.6 66 16 140/85 (103) 96 08/24/18 20:20 58 08/24/18 20:00 97.9 58 18 144/86 (105) 95 08/24/18 20:00 Room Air 08/24/18 17:02 58 I&O Intake and Output 08/24/18 08/25/18 19:00 07:00 Intake Total 1212.5 ml 1373.515 ml Output Total 550 ml 2000 ml Balance 662.5 ml -626.485 ml Intake Oral 570 ml 240 ml IV Total 642.5 ml 1133.515 ml Output Urine Total 550 ml 2000 ml # Bowel Movements 8 Drains: none Cardiovascular: RSR Respiratory: decreased breath sounds Abdomen: soft, distended, non-tender, present bowel sounds Extremities: no tenderness, no cyanosis Laboratory Tests Test 08/25/18 06:53 08/25/18 09:15 08/25/18 16:03 Arterial Blood pH 7.445 (7.350-7.450) Arterial Blood Partial Pressure CO2 28.9 mmHg (35.0-45.0) L Arterial Blood Partial Pressure O2 40.1 mmHg (75.0-100.0) Arterial Blood HCO3 19.4 mmol/L (22.0-26.0) L Arterial Blood Oxygen Saturation 76.2 % (95-100) *L Arterial Blood Base Excess -3.4 (-2-2) L Danny Test Positive White Blood Count 16.8 K/UL (4.8-10.8) H Red Blood Count 4.82 M/UL (4.70-6.10) Hemoglobin 13.9 G/DL (14.2-18.0) L Hematocrit 42.4 % (42.0-52.0) # Mean Corpuscular Volume 88 FL (80-99) Mean Corpuscular Hemoglobin 28.9 PG (27.0-31.0) Mean Corpuscular Hemoglobin Concent 32.9 G/DL (32.0-36.0) Red Cell Distribution Width 12.0 % (11.6-14.8) Platelet Count 112 K/UL (150-450) L Mean Platelet Volume 7.5 FL (6.5-10.1) Neutrophils (%) (Auto) % (45.0-75.0) Lymphocytes (%) (Auto) % (20.0-45.0) Monocytes (%) (Auto) % (1.0-10.0) Eosinophils (%) (Auto) % (0.0-3.0) Basophils (%) (Auto) % (0.0-2.0) Differential Total Cells Counted 100 Neutrophils % (Manual) 80 % (45-75) H Lymphocytes % (Manual) 5 % (20-45) L Monocytes % (Manual) 5 % (1-10) Eosinophils % (Manual) 0 % (0-3) Basophils % (Manual) 0 % (0-2) Band Neutrophils 10 % (0-8) H Platelet Estimate Decreased L Platelet Morphology Normal Red Blood Cell Morphology Normal Sodium Level 144 MMOL/L (136-145) Potassium Level 3.1 MMOL/L (3.5-5.1) L Chloride Level 109 MMOL/L (98-107) H Carbon Dioxide Level 24 MMOL/L (21-32) Anion Gap 11 mmol/L (5-15) Blood Urea Nitrogen 22 mg/dL (7-18) H Creatinine 1.3 MG/DL (0.55-1.30) Estimat Glomerular Filtration Rate mL/min (>60) Glucose Level 105 MG/DL (74-106) Calcium Level 8.6 MG/DL (8.5-10.1) Magnesium Level 2.0 MG/DL (1.8-2.4) Pro-B-Type Natriuretic Peptide 6574 pg/mL (0-125) H Urine Color Pale yellow Urine Appearance Clear Urine pH 5 (4.5-8.0) Urine Specific Garnett 1.005 (1.005-1.035) Urine Protein Negative (NEGATIVE) Urine Glucose (UA) Negative (NEGATIVE) Urine Ketones Negative (NEGATIVE) Urine Blood 5+ (NEGATIVE) H Urine Nitrite Negative (NEGATIVE) Urine Bilirubin Negative (NEGATIVE) Urine Urobilinogen Normal MG/DL (0.0-1.0) Urine Leukocyte Esterase Negative (NEGATIVE) Urine RBC Pending Urine WBC Pending Urine Squamous Epithelial Cells Pending Urine Bacteria Pending Plan Problems: (1) Sepsis (2) Abdominal distension (gaseous) Assessment & Plan: Abdominal distention / discomfort. no n/v/f/c. +flatus. feels bloated. exam with mild distention/non tender CT - Mildly fluid-filled small bowel loops, nonspecific, No acute process otherwise, Postcholecystectomy changes. What are probably hepatic cysts adjacent to the gallbladder fossa mimics fluid in the gallbladder fossa on the axial views, but appear to be cysts on the coronal images. Nonetheless, biloma or other pathologic collection not completely excludable Multiple nonobstructive left renal calculi Sarmiento catheter Bilateral basilar pulmonary interstitial prominence, nonspecific Scoliosis and spondylosis KUB - Nonspecific prominent but not frankly dilated gas-filled small bowel loops , decreased from previous day's exam Satisfactory position right groin central venous catheter -no acute surgical intervention planned -okay for diet as tolerated -Rx as written -will follow clinically with exams thank you for allowing me to participate in patients care David Daley Aug 25, 2018 16:56
[2018-08-25] MEDS ORDERED: Isovue-300 100ml vial INJ PRN (17:00)
--- NOTE | 2018-08-25 17:51 | General Progress Note ---
Assessment/Plan Assessment/Plan Assessment - abnormal LFT, ? result of sepsis or passive congestion - dyspnea - leucocytosis - Diarrhea - resolved - Melanoma - s/p cholecystectomy - ill defined liver changes on CT - doubt significance - Urolithiasis Recommendations - follow LFT (CT and hepatitis serologies unrevealing) - Abx per ID - pulmonary toilet and pulmonary f/u - ICU care - cardiology follow up - check stool cultures - po diet as tolerated - follow labs and exam Subjective Allergies: Coded Allergies: No Known Allergies (Unverified , 08/22/18) Subjective more SOB back in ICU no abdominal complaints Objective Last 24 Hour Vital Signs Date Time Temp Pulse Resp B/P (MAP) Pulse Ox O2 Delivery O2 Flow Rate FiO2 08/25/18 16:00 Non-Rebreather 15.0 Non-Rebreather 15.0 Non-Rebreather 15.0 08/25/18 15:36 87 26 93 Venturi Mask 12.0 50 08/25/18 15:27 86 24 93 Venturi Mask 12.0 50 08/25/18 13:00 85 24 130/77 (94) 90 08/25/18 12:00 100.0 74 25 105/54 (71) 93 08/25/18 12:00 75 08/25/18 12:00 Non-Rebreather 15.0 Non-Rebreather 15.0 Non-Rebreather 15.0 08/25/18 11:19 82 22 96 Venturi Mask 12.0 50 08/25/18 11:07 77 22 99 Non-Rebreather 15.0 100 08/25/18 11:00 80 25 101/58 (72) 95 08/25/18 10:00 79 24 111/59 (76) 98 08/25/18 09:48 100.0 08/25/18 09:00 100.3 77 27 111/64 (80) 99 08/25/18 08:00 99.2 85 24 130/77 (94) 90 08/25/18 08:00 Room Air 15.0 Non-Rebreather 15.0 Non-Rebreather 08/25/18 08:00 Non-Rebreather 15.0 Non-Rebreather 15.0 Non-Rebreather 15.0 08/25/18 07:50 77 28 93 Non-Rebreather 15.0 100 08/25/18 07:41 76 08/25/18 07:40 77 26 89 Non-Rebreather 15.0 100 08/25/18 07:35 77 26 Non-Rebreather 15.0 100 08/25/18 04:00 64 08/25/18 04:00 97.4 85 20 157/78 (104) 94 08/25/18 04:00 Room Air 08/25/18 00:00 52 08/25/18 00:00 Room Air 08/24/18 23:12 97.6 66 16 140/85 (103) 96 08/24/18 20:20 58 08/24/18 20:00 97.9 58 18 144/86 (105) 95 08/24/18 20:00 Room Air Intake and Output 08/24/18 08/25/18 19:00 07:00 Intake Total 1212.5 ml 1373.515 ml Output Total 550 ml 2000 ml Balance 662.5 ml -626.485 ml Intake Oral 570 ml 240 ml IV Total 642.5 ml 1133.515 ml Output Urine Total 550 ml 2000 ml # Bowel Movements 8 Laboratory Tests 08/25/18 06:53: Arterial Blood pH 7.445, Arterial Blood Partial Pressure CO2 28.9L, Arterial Blood Partial Pressure O2 40.1*L, Arterial Blood HCO3 19.4L, Arterial Blood Oxygen Saturation 76.2*L, Arterial Blood Base Excess -3.4L, Danny Test Positive 08/25/18 09:15: White Blood Count 16.8H, Red Blood Count 4.82, Hemoglobin 13.9L, Hematocrit 42.4 #, Mean Corpuscular Volume 88, Mean Corpuscular Hemoglobin 28.9, Mean Corpuscular Hemoglobin Concent 32.9, Red Cell Distribution Width 12.0, Platelet Count 112L, Mean Platelet Volume 7.5, Neutrophils (%) (Auto) , Lymphocytes (%) ( Auto) , Monocytes (%) (Auto) , Eosinophils (%) (Auto) , Basophils (%) (Auto) , Differential Total Cells Counted 100, Neutrophils % (Manual) 80H, Lymphocytes % (Manual) 5L, Monocytes % (Manual) 5, Eosinophils % (Manual) 0, Basophils % ( Manual) 0, Band Neutrophils 10H, Platelet Estimate DecreasedL, Platelet Morphology Normal, Red Blood Cell Morphology Normal, Sodium Level 144, Potassium Level 3.1L, Chloride Level 109H, Carbon Dioxide Level 24, Anion Gap 11 , Blood Urea Nitrogen 22H, Creatinine 1.3, Estimat Glomerular Filtration Rate , Glucose Level 105, Calcium Level 8.6, Magnesium Level 2.0, Pro-B-Type Natriuretic Peptide 6574H 08/25/18 16:03: Urine Color Pale yellow, Urine Appearance Clear, Urine pH 5, Urine Specific [place] 1.005, Urine Protein Negative, Urine Glucose (UA) Negative, Urine Ketones Negative, Urine Blood 5+H, Urine Nitrite Negative, Urine Bilirubin Negative, Urine Urobilinogen Normal, Urine Leukocyte Esterase Negative, Urine RBC 40-60H, Urine WBC 0-2, Urine Squamous Epithelial Cells Occasional, Urine Uric Acid Crystals FewH, Urine Bacteria Occasional Height (Feet): 5 Height (Inches): 7.00 Weight (Pounds): 156 Objective Thin WM NAD NCAT supple Coars BS and tavares RR abd soft no edema non focal Francisco Delgadillo MD Aug 25, 2018 17:51
--- NOTE | 2018-08-25 18:00 | NUR ---
NURSE NOTES: Pt's resting in bed, with eyes closed, in no acute distress.
--- NOTE | 2018-08-25 19:35 | NUR ---
NURSE NOTES: Received report from Yanira APONTE. patient in bed awake,alert able to verbalize needs to staff. Watching TV. On venturi mask at 12L satting 99-100%. HOB elevated. Denies any pain or discomfort. Skin awarm and dry to touch. Temp 98.7 oral. Sarmiento draining. IV site intact no s/s of infiltration. Instructed patient to use call light for assistance. Bed alarm on. Bed locked and in low position. SR on the monitor. No s/s of acute distress noted. No hypo/hyperglycemia. Will continue plan of care.
--- NOTE | 2018-08-25 19:47 | NUR ---
HAND-OFF: Report given to fariha. pt in no acute distress
[2018-08-25] MEDS ORDERED: Hydrocortisone 100mg Inj IV SCH ×2 (21:00)
--- NOTE | 2018-08-25 21:35 | NUR ---
NURSE NOTES: Patient in bed resting comfortably. No s/s of acute distress noted.
[2018-08-26] VITALS (31 sets, daily range): BP systolic 63–167; BP diastolic 35–93
--- NOTE | 2018-08-26 | NUR ---
NURSE NOTES: Blood glucose 100mg/dl. Patient in bed sleeping comfortably. No fever. Denies any pain or discomfort. Sarmiento draining. Call light within easy reach. Will continue plan of care.
--- NOTE | 2018-08-26 02:00 | NUR ---
NURSE NOTES: Patient able to repositioned self in bed. Continue on Venturi mask 12L satting 99%. HOB elevated. SR on the monitor. Will continue plan of acre.
--- NOTE | 2018-08-26 02:01 | Progress Note ---
INTERNAL MEDICINE PROGRESS NOTE DATE: 08/25/2018 SUBJECTIVE: The patient's condition is critical. Prognosis is guarded. He was transferred back to the intensive care unit early this morning after developing relatively acute onset respiratory distress with severe hypoxia. The patient was treated with oxygen, suctioning, bronchodilators and diuretics. Imaging studies were suggestive of new bilateral upper lobe infiltrates with component of pulmonary venous congestion. The patient's son was contacted regarding this change in condition and return to the intensive care unit. Respiratory hygiene was introduced and intubation for mechanical ventilation was . OBJECTIVE: VITAL SIGNS: Blood pressure 130/77, pulse 85, and respirations 24. LUNGS: Coarse breath sounds. Scattered rhonchi. HEART: Regular rhythm and rate. Normal S1, S2. ABDOMEN: Soft. EXTREMITIES: Trace edema. LABORATORY DATA: Labs are noted. IMPRESSION: 1. Acute respiratory insufficiency with severe hypoxia, likely due to new pulmonary infiltrates component of acute diastolic congestive heart failure. 2. History of malignant melanoma. 3. Status post cholecystectomy with recent bacteremia. 4. Leukocytosis. 5. Adrenocortical insufficiency. PLAN: 1. Antimicrobials. 2. Respiratory hygiene. 3. Oxygenation. 4. Venous duplex scan to assess for possible source of pulmonary emboli. 5. Sputum study for culture. 6. Adjust his stress dose steroids. Nathaniel Bonilla M.D. DR: CAM JOB#: [id number] CC:
[2018-08-26] MEDS: Albuterol/Ipratropium 3ml neb HHN SCH ×6 (03:28→22:55)
--- NOTE | 2018-08-26 04:00 | NUR ---
NURSE NOTES: patient refused bed bath, explained the importance v/s risk and benefits, patients agreed.
[2018-08-26] MEDS: Vancomycin 1250mg/D5W 250ml 250 ML IVPB SCH ×2 (04:53→16:00)
[2018-08-26] MEDS: NovoLOG Insulin Flexpen SUBQ SCH ×4 (06:00→17:51)
--- NOTE | 2018-08-26 06:00 | NUR ---
NURSE NOTES: Patient sleeping comfortably in bed. No SOB. On venturi mask at 12L satting 98%.Water at bedside. Call light within easy.
[2018-08-26 06:25] LABS: HEMOGLOBIN 10.8 G/DL (14.2-18.0); MEAN CORPUSCULAR VOLUME 89 FL (80-99); PLATELET COUNT 85 K/UL (150-450); RED BLOOD COUNT 3.59 M/UL (4.70-6.10); RED CELL DISTRIBUTION WIDTH 12.4 % (11.6-14.8); WHITE BLOOD COUNT 11.4 K/UL (4.8-10.8)
--- NOTE | 2018-08-26 07:05 | General Progress Note ---
Assessment/Plan Problem List: (1) Sepsis ICD Codes: A41.9 - Sepsis, unspecified organism SNOMED: 88842479 (2) Diabetes ICD Codes: E11.9 - Type 2 diabetes mellitus without complications SNOMED: 69759348 (3) Hypothyroidism ICD Codes: E03.9 - Hypothyroidism, unspecified SNOMED: 84490186 (4) Adrenal insufficiency ICD Codes: E27.40 - Unspecified adrenocortical insufficiency SNOMED: 93432528, 488555265 Assessment/Plan increase IVHC to 30 mg every 8 hours continue Levothyroxine 150 mcg daily continue NISS Subjective Allergies: Coded Allergies: No Known Allergies (Unverified , 08/22/18) Subjective transferred to ICU due to respiratory distress Objective Last 24 Hour Vital Signs Date Time Temp Pulse Resp B/P (MAP) Pulse Ox O2 Delivery O2 Flow Rate FiO2 08/26/18 05:00 97 27 113/70 (84) 96 08/26/18 04:00 Venturi Mask 12.0 Venturi Mask 12.0 08/26/18 04:00 95 08/26/18 04:00 98.5 89 29 142/70 (94) 98 08/26/18 03:38 88 24 94 Venturi Mask 12.0 50 08/26/18 03:27 80 26 93 Venturi Mask 12.0 50 08/26/18 03:00 79 28 120/64 (82) 96 08/26/18 02:00 81 28 143/64 (90) 96 08/26/18 01:00 86 26 113/63 (80) 99 08/26/18 00:00 Venturi Mask 12.0 Venturi Mask 12.0 08/26/18 00:00 86 08/26/18 00:00 98.5 89 24 119/59 (79) 99 08/25/18 23:00 86 22 94 Venturi Mask 12.0 50 08/25/18 23:00 85 24 94/65 (75) 99 08/25/18 22:48 87 25 93 Venturi Mask 12.0 50 08/25/18 22:00 87 24 91/53 (66) 96 08/25/18 21:00 88 24 87/49 (62) 95 08/25/18 20:00 98.7 89 26 103/47 (65) 100 08/25/18 20:00 76 08/25/18 20:00 Venturi Mask 12.0 Venturi Mask 12.0 18 19:46 Venturi Mask 12.0 50 18 19:46 92 Venturi Mask 12.0 50 18 19:44 85 24 92 Venturi Mask 12.0 50 18 19:33 84 26 93 Venturi Mask 12.0 50 18 19:00 81 27 130/77 (94) 92 18 18:00 99.9 86 27 94/49 (64) 94 08/25/18 17:00 88 28 101/53 (69) 95 08/25/18 16:00 75 08/25/18 16:00 Non-Rebreather 15.0 Non-Rebreather 15.0 Non-Rebreather 15.0 08/25/18 16:00 87 29 127/56 (79) 93 08/25/18 15:36 87 26 93 Venturi Mask 12.0 50 08/25/18 15:27 86 24 93 Venturi Mask 12.0 50 08/25/18 13:00 85 24 130/77 (94) 90 08/25/18 12:00 100.0 74 25 105/54 (71) 93 08/25/18 12:00 75 08/25/18 12:00 Non-Rebreather 15.0 Non-Rebreather 15.0 Non-Rebreather 15.0 08/25/18 11:19 82 22 96 Venturi Mask 12.0 50 08/25/18 11:07 77 22 99 Non-Rebreather 15.0 100 08/25/18 11:00 80 25 101/58 (72) 95 08/25/18 10:00 79 24 111/59 (76) 98 08/25/18 09:48 100.0 08/25/18 09:00 100.3 77 27 111/64 (80) 99 08/25/18 08:00 99.2 85 24 130/77 (94) 90 08/25/18 08:00 Room Air 15.0 Non-Rebreather 15.0 Non-Rebreather 08/25/18 08:00 Non-Rebreather 15.0 Non-Rebreather 15.0 Non-Rebreather 15.0 08/25/18 07:50 77 28 93 Non-Rebreather 15.0 100 08/25/18 07:41 76 08/25/18 07:40 77 26 89 Non-Rebreather 15.0 100 08/25/18 07:35 77 26 Non-Rebreather 15.0 100 Intake and Output 08/25/18 08/26/18 19:00 07:00 Intake Total 1803.337 ml 1500.000 ml Output Total 1830 ml 2200 ml Balance -26.663 ml -700.000 ml Intake Oral 990 ml 1150 ml IV Total 813.337 ml 350.000 ml Output Urine Total 1830 ml 2200 ml Laboratory Tests 08/25/18 09:15: White Blood Count 16.8H, Red Blood Count 4.82, Hemoglobin 13.9L, Hematocrit 42.4 #, Mean Corpuscular Volume 88, Mean Corpuscular Hemoglobin 28.9, Mean Corpuscular Hemoglobin Concent 32.9, Red Cell Distribution Width 12.0, Platelet Count 112L, Mean Platelet Volume 7.5, Neutrophils (%) (Auto) , Lymphocytes (%) ( Auto) , Monocytes (%) (Auto) , Eosinophils (%) (Auto) , Basophils (%) (Auto) , Differential Total Cells Counted 100, Neutrophils % (Manual) 80H, Lymphocytes % (Manual) 5L, Monocytes % (Manual) 5, Eosinophils % (Manual) 0, Basophils % ( Manual) 0, Band Neutrophils 10H, Platelet Estimate DecreasedL, Platelet Morphology Normal, Red Blood Cell Morphology Normal, Sodium Level 144, Potassium Level 3.1L, Chloride Level 109H, Carbon Dioxide Level 24, Anion Gap 11 , Blood Urea Nitrogen 22H, Creatinine 1.3, Estimat Glomerular Filtration Rate , Glucose Level 105, Calcium Level 8.6, Magnesium Level 2.0, Pro-B-Type Natriuretic Peptide 6574H 08/25/18 16:03: Urine Color Pale yellow, Urine Appearance Clear, Urine pH 5, Urine Specific [place] 1.005, Urine Protein Negative, Urine Glucose (UA) Negative, Urine Ketones Negative, Urine Blood 5+H, Urine Nitrite Negative, Urine Bilirubin Negative, Urine Urobilinogen Normal, Urine Leukocyte Esterase Negative, Urine RBC 40-60H, Urine WBC 0-2, Urine Squamous Epithelial Cells Occasional, Urine Uric Acid Crystals FewH, Urine Bacteria Occasional 08/26/18 04:35: White Blood Count 11.4H, Red Blood Count 3.59L, Hemoglobin 10.8L, Hematocrit 32.0L, Mean Corpuscular Volume 89, Mean Corpuscular Hemoglobin 30.2, Mean Corpuscular Hemoglobin Concent 33.9, Red Cell Distribution Width 12.4, Platelet Count 85L, Mean Platelet Volume 6.7, Neutrophils (%) (Auto) , Lymphocytes (%) ( Auto) , Monocytes (%) (Auto) , Eosinophils (%) (Auto) , Basophils (%) (Auto) , Neutrophils % (Manual) [Pending], Lymphocytes % (Manual) [Pending], Platelet Estimate [Pending], Platelet Morphology [Pending], Sodium Level [Pending], Potassium Level [Pending], Chloride Level [Pending], Carbon Dioxide Level [ Pending], Blood Urea Nitrogen [Pending], Creatinine [Pending], Estimat Glomerular Filtration Rate [Pending], Glucose Level [Pending], Calcium Level [ Pending], Total Bilirubin [Pending], Aspartate Amino Transf (AST/SGOT) [Pending] , Alanine Aminotransferase (ALT/SGPT) [Pending], Alkaline Phosphatase [Pending] , Total Protein [Pending], Albumin [Pending], Globulin [Pending], Vancomycin Level Trough 12.6H Height (Feet): 5 Height (Inches): 7.00 Weight (Pounds): 155 General Appearance: no apparent distress Neck: normal alignment Cardiovascular: normal rate Respiratory/Chest: decreased breath sounds Abdomen: normal bowel sounds Objective Current Medications Medications (Trade) Dose Ordered Sig/Elli Route PRN Reason Start Time Stop Time Status Last Admin Dose Admin Acetaminophen (Tylenol) 650 mg Q4H PRN ORAL Mild Pain/Temp > 100.5 08/25/18 08:45 09/24/18 08:44 08/25/18 16:46 Albuterol/ Ipratropium (Albuterol/ Ipratropium) 3 ml Q4HRT HHN 08/25/18 11:00 08/30/18 10:59 08/26/18 03:28 Dextrose (Dextrose 50%) 25 ml Q30M PRN IV Hypoglycemia 08/25/18 08:30 09/21/18 23:29 Dextrose (Dextrose 50%) 50 ml Q30M PRN IV Hypoglycemia 08/25/18 08:30 09/21/18 23:29 Guaifenesin/ Dextromethorphan (Robitussin DM Syrup) 5 ml Q6H PRN ORAL For Cough 08/25/18 08:30 09/23/18 08:29 Heparin Sodium (Porcine) (Heparin 5000 units/ml) 5,000 units EVERY 12 HOURS SUBQ 08/25/18 09:00 09/22/18 08:59 08/25/18 11:53 Hydrocortisone (Solu-CORTEF) 25 mg EVERY 12 HOURS IV 08/25/18 21:00 09/21/18 21:59 08/25/18 21:49 Insulin Aspart (NovoLOG) EVERY 6 HOURS SUBQ 08/25/18 12:00 09/22/18 00:00 08/25/18 18:33 Iopamidol (Isovue-300 100ml) 100 ml NOW PRN INJ RADIOLOGY 08/25/18 17:00 08/26/18 16:59 Levothyroxine Sodium (Synthroid) 150 mcg DAILY@0630 ORAL 08/26/18 06:30 09/22/18 06:29 08/26/18 06:25 Meropenem 1 gm/ Sodium Chloride 100 ml @ 200 mls/hr Q8HR IVPB 08/25/18 16:00 08/30/18 15:59 08/26/18 06:25 Ondansetron HCl (Zofran) 4 mg Q4H PRN IVP Nausea & Vomiting 08/25/18 09:15 09/22/18 17:03 Pantoprazole (Protonix) 40 mg DAILY ORAL 08/25/18 09:00 09/24/18 08:59 08/25/18 09:17 Vancomycin HCl (Vanco rx to dose) 1 ea DAILY PRN MISC Per rx protocol 08/25/18 09:00 09/21/18 19:44 Vancomycin HCl/ Dextrose 250 ml @ 166.667 mls/hr Q12H IVPB 08/25/18 16:00 08/31/18 15:59 08/26/18 04:53 Item Value Date Time Bedside Blood Glucose 98 mg/dl 08/26/18 0624 Bedside Blood Glucose 100 mg/dl 08/26/18 0000 Bedside Blood Glucose 122 mg/dl H 08/25/18 1833 Bedside Blood Glucose 123 mg/dl H 08/25/18 1207 Bedside Blood Glucose 78 mg/dl 08/25/18 0630 Stanford Baca MD Aug 26, 2018 07:05
--- NOTE | 2018-08-26 07:25 | NUR ---
HAND-OFF: Report given to FAY New.
[2018-08-26] MEDS: Hydrocortisone 100mg Inj IV SCH ×3 (07:26→22:03)
[2018-08-26 07:34] LABS: ALANINE AMINOTRANSFERASE 87 U/L (12-78); ALBUMIN 3.3 G/DL (3.4-5.0); ALBUMIN/GLOBULIN RATIO 1.1 (1.0-2.7); ALKALINE PHOSPHATASE 48 U/L (46-116); ANION GAP 13 mmol/L (5-15); ASPARTATE AMINO TRANSFERASE 107 U/L (15-37); BILIRUBIN,TOTAL 0.2 MG/DL (0.2-1.0); BLOOD UREA NITROGEN 21 mg/dL (7-18); CALCIUM 7.9 MG/DL (8.5-10.1); CARBON DIOXIDE 21 MMOL/L (21-32); CHLORIDE 110 MMOL/L (98-107); CREATININE 1.2 MG/DL (0.55-1.30); POTASSIUM 4.1 MMOL/L (3.5-5.1); SODIUM 144 MMOL/L (136-145)
[2018-08-26] MEDS: Heparin 5000 units/ml inj SUBQ SCH ×2 (07:55→21:00)
[2018-08-26] MEDS ORDERED: Vancomycin 1.5 GM/D5W 250ML IVPB SCH (08:00)
--- NOTE | 2018-08-26 08:00 | NUR ---
NURSE NOTES: Received patient asleep. Opens eyes spontaneously/to name. A&O x4. Agitated asked to be left alone to sleep. Venturi mask 55% saturating 95% RR 30. MD aware notified. ABG order obtained for 12 PM. Skin intact. L forearm 20, R forearm 22. No critical lab values. Lung sounds diminished bilaterally. Hypoactive bowel sounds on all 4 quadrants. Soft, non-tender abdomen. Bed on lowest position, bed alarm on for safety, HOB elevated for aspiration precaution. Will continue to monitor patient.
--- NOTE | 2018-08-26 08:53 | Pulmonology Progress Note ---
Assessment/Plan Assessment/Plan IMPRESSION: 1. Malignant melanoma. 2. Edmonson's disease. 3. Sepsis? 4. Hypotension. 5. Worsening CXR and hypoxemia; suspect pulm edema; improved after diuresis DISCUSSION: Agree with admission and care. Continue steroids Add further diuresis. I will follow carefully. Discussed with Dr Bonilla Will check CXR AM Check ABg today Aj Harding M.D. Subjective Interval Events: Looking better; saturation 97%; on VTM; Constitutional: Reports: no symptoms HEENT: Repors: no symptoms Respiratory: Reports: no symptoms Cardiovascular: Reports: no symptoms Gastrointestinal/Abdominal: Reports: no symptoms Genitourinary: Reports: no symptoms Neurologic: Reports: no symptoms Allergies: Coded Allergies: No Known Allergies (Unverified , 08/22/18) Objective Last 24 Hour Vital Signs Date Time Temp Pulse Resp B/P (MAP) Pulse Ox O2 Delivery O2 Flow Rate FiO2 08/26/18 07:58 101 36 97 Venturi Mask 12.0 50 08/26/18 07:10 95 24 94 Venturi Mask 12.0 50 08/26/18 07:10 94 Venturi Mask 12.0 50 08/26/18 07:10 Venturi Mask 12.0 50 08/26/18 05:00 97 27 113/70 (84) 96 08/26/18 04:00 Venturi Mask 12.0 Venturi Mask 12.0 08/26/18 04:00 95 08/26/18 04:00 98.5 89 29 142/70 (94) 98 08/26/18 03:38 88 24 94 Venturi Mask 12.0 50 08/26/18 03:27 80 26 93 Venturi Mask 12.0 50 08/26/18 03:00 79 28 120/64 (82) 96 08/26/18 02:00 81 28 143/64 (90) 96 08/26/18 01:00 86 26 113/63 (80) 99 08/26/18 00:00 Venturi Mask 12.0 Venturi Mask 12.0 08/26/18 00:00 86 08/26/18 00:00 98.5 89 24 119/59 (79) 99 08/25/18 23:00 86 22 94 Venturi Mask 12.0 50 08/25/18 23:00 85 24 94/65 (75) 99 18 22:48 87 25 93 Venturi Mask 12.0 50 18 22:00 87 24 91/53 (66) 96 08/25/18 21:00 88 24 87/49 (62) 95 08/25/18 20:00 98.7 89 26 103/47 (65) 100 18 20:00 76 08/25/18 20:00 Venturi Mask 12.0 Venturi Mask 12.0 08/25/18 19:46 Venturi Mask 12.0 50 08/25/18 19:46 92 Venturi Mask 12.0 50 08/25/18 19:44 85 24 92 Venturi Mask 12.0 50 08/25/18 19:33 84 26 93 Venturi Mask 12.0 50 08/25/18 19:00 81 27 130/77 (94) 92 08/25/18 18:00 99.9 86 27 94/49 (64) 94 08/25/18 17:00 88 28 101/53 (69) 95 08/25/18 16:00 75 08/25/18 16:00 Non-Rebreather 15.0 Non-Rebreather 15.0 Non-Rebreather 15.0 08/25/18 16:00 87 29 127/56 (79) 93 08/25/18 15:36 87 26 93 Venturi Mask 12.0 50 08/25/18 15:27 86 24 93 Venturi Mask 12.0 50 08/25/18 13:00 85 24 130/77 (94) 90 08/25/18 12:00 100.0 74 25 105/54 (71) 93 08/25/18 12:00 75 08/25/18 12:00 Non-Rebreather 15.0 Non-Rebreather 15.0 Non-Rebreather 15.0 08/25/18 11:19 82 22 96 Venturi Mask 12.0 50 08/25/18 11:07 77 22 99 Non-Rebreather 15.0 100 08/25/18 11:00 80 25 101/58 (72) 95 08/25/18 10:00 79 24 111/59 (76) 98 08/25/18 09:48 100.0 08/25/18 09:00 100.3 77 27 111/64 (80) 99 Intake and Output 08/25/18 08/26/18 19:00 07:00 Intake Total 1803.337 ml 1500.000 ml Output Total 1830 ml 2200 ml Balance -26.663 ml -700.000 ml Intake Oral 990 ml 1150 ml IV Total 813.337 ml 350.000 ml Output Urine Total 1830 ml 2200 ml General Appearance: no acute distress HEENT: normocephalic Respiratory/Chest: chest wall non-tender, lungs clear Cardiovascular: normal peripheral pulses, normal rate Abdomen: normal bowel sounds, soft, non tender Microbiology Date/Time Source Procedure Growth Status 08/23/18 16:00 Blood Blood Culture - Preliminary NO GROWTH AFTER 48 HOURS Resulted 08/23/18 15:45 Blood Blood Culture - Preliminary NO GROWTH AFTER 48 HOURS Resulted Laboratory Tests 08/25/18 09:15: White Blood Count 16.8H, Red Blood Count 4.82, Hemoglobin 13.9L, Hematocrit 42.4 #, Mean Corpuscular Volume 88, Mean Corpuscular Hemoglobin 28.9, Mean Corpuscular Hemoglobin Concent 32.9, Red Cell Distribution Width 12.0, Platelet Count 112L, Mean Platelet Volume 7.5, Neutrophils (%) (Auto) , Lymphocytes (%) ( Auto) , Monocytes (%) (Auto) , Eosinophils (%) (Auto) , Basophils (%) (Auto) , Differential Total Cells Counted 100, Neutrophils % (Manual) 80H, Lymphocytes % (Manual) 5L, Monocytes % (Manual) 5, Eosinophils % (Manual) 0, Basophils % ( Manual) 0, Band Neutrophils 10H, Platelet Estimate DecreasedL, Platelet Morphology Normal, Red Blood Cell Morphology Normal, Sodium Level 144, Potassium Level 3.1L, Chloride Level 109H, Carbon Dioxide Level 24, Anion Gap 11 , Blood Urea Nitrogen 22H, Creatinine 1.3, Estimat Glomerular Filtration Rate , Glucose Level 105, Calcium Level 8.6, Magnesium Level 2.0, Pro-B-Type Natriuretic Peptide 6574H 08/25/18 16:03: Urine Color Pale yellow, Urine Appearance Clear, Urine pH 5, Urine Specific [place] 1.005, Urine Protein Negative, Urine Glucose (UA) Negative, Urine Ketones Negative, Urine Blood 5+H, Urine Nitrite Negative, Urine Bilirubin Negative, Urine Urobilinogen Normal, Urine Leukocyte Esterase Negative, Urine RBC 40-60H, Urine WBC 0-2, Urine Squamous Epithelial Cells Occasional, Urine Uric Acid Crystals FewH, Urine Bacteria Occasional 08/26/18 04:35: White Blood Count 11.4H, Red Blood Count 3.59L, Hemoglobin 10.8L, Hematocrit 32.0L, Mean Corpuscular Volume 89, Mean Corpuscular Hemoglobin 30.2, Mean Corpuscular Hemoglobin Concent 33.9, Red Cell Distribution Width 12.4, Platelet Count 85L, Mean Platelet Volume 6.7, Neutrophils (%) (Auto) , Lymphocytes (%) ( Auto) , Monocytes (%) (Auto) , Eosinophils (%) (Auto) , Basophils (%) (Auto) , Differential Total Cells Counted 100, Neutrophils % (Manual) 55, Lymphocytes % ( Manual) 40, Monocytes % (Manual) 5, Eosinophils % (Manual) 0, Basophils % ( Manual) 0, Band Neutrophils 0, Platelet Estimate DecreasedL, Platelet Morphology Normal, Sodium Level 144, Potassium Level 4.1, Chloride Level 110H, Carbon Dioxide Level 21, Anion Gap 13, Blood Urea Nitrogen 21H, Creatinine 1.2, Estimat Glomerular Filtration Rate , Glucose Level 156H, Calcium Level 7.9L, Hypochromasia 1+, Anisocytosis 1+, Total Bilirubin 0.2, Aspartate Amino Transf ( AST/SGOT) 107H, Alanine Aminotransferase (ALT/SGPT) 87H, Alkaline Phosphatase 48 , Total Protein 6.2L, Albumin 3.3L, Globulin 2.9, Albumin/Globulin Ratio 1.1, Vancomycin Level Trough 12.6H Current Medications Medications (Trade) Dose Ordered Sig/Elli Route PRN Reason Start Time Stop Time Status Last Admin Dose Admin Acetaminophen (Tylenol) 650 mg Q4H PRN ORAL Mild Pain/Temp > 100.5 08/25/18 08:45 09/24/18 08:44 08/25/18 16:46 Albuterol/ Ipratropium (Albuterol/ Ipratropium) 3 ml Q4HRT HHN 08/25/18 11:00 08/30/18 10:59 08/26/18 07:16 Dextrose (Dextrose 50%) 25 ml Q30M PRN IV Hypoglycemia 08/25/18 08:30 09/21/18 23:29 Dextrose (Dextrose 50%) 50 ml Q30M PRN IV Hypoglycemia 08/25/18 08:30 09/21/18 23:29 Guaifenesin/ Dextromethorphan (Robitussin DM Syrup) 5 ml Q6H PRN ORAL For Cough 08/25/18 08:30 09/23/18 08:29 Heparin Sodium (Porcine) (Heparin 5000 units/ml) 5,000 units EVERY 12 HOURS SUBQ 08/25/18 09:00 09/22/18 08:59 08/25/18 11:53 Hydrocortisone (Solu-CORTEF) 30 mg EVERY 8 HOURS IV 08/26/18 07:15 09/21/18 21:59 08/26/18 07:26 Insulin Aspart (NovoLOG) EVERY 6 HOURS SUBQ 08/25/18 12:00 09/22/18 00:00 08/25/18 18:33 Iopamidol (Isovue-300 100ml) 100 ml NOW PRN INJ RADIOLOGY 08/25/18 17:00 08/26/18 16:59 Levothyroxine Sodium (Synthroid) 150 mcg DAILY@0630 ORAL 08/26/18 06:30 09/22/18 06:29 08/26/18 06:25 Meropenem 1 gm/ Sodium Chloride 100 ml @ 200 mls/hr Q8HR IVPB 08/25/18 16:00 08/30/18 15:59 08/26/18 06:25 Ondansetron HCl (Zofran) 4 mg Q4H PRN IVP Nausea & Vomiting 08/25/18 09:15 09/22/18 17:03 Pantoprazole (Protonix) 40 mg DAILY ORAL 08/25/18 09:00 09/24/18 08:59 08/25/18 09:17 Vancomycin HCl (Vanco rx to dose) 1 ea DAILY PRN MISC Per rx protocol 08/25/18 09:00 09/21/18 19:44 Vancomycin HCl/ Dextrose 250 ml @ 166.667 mls/hr Q12H IVPB 08/25/18 16:00 08/31/18 15:59 08/26/18 04:53 Aj Harding MD Aug 26, 2018 08:53
--- NOTE | 2018-08-26 09:59 | NUR ---
Social Work This SW met with patient, currently in the ICU, who is unresponsive at this time (sleeping). Spouse, Alyssa ([phone]) currently at bedside appears supportive, stating she has been to patient for the past twenty years and a decision maker for patient. Son (Quoc Flor: [phone]) lives in [place], can be reached for decision making, as needed. Nursing reported patient has been alert/oriented x4, currently on 02. Spouse informed this SW that he was independent with ADLs, ambulation, did not use any DME prior and still driving. Patient is retired, not working and lives with spouse in an apartment with no steps. Spouse denied any substance abuse, but explained patient has shown some depression (situational) and does not take any medication for this. This SW educated spouse regarding assistance upon discharge regarding SNF vs home care, as needed. Pending progress at this time.
--- NOTE | 2018-08-26 10:00 | NUR ---
NURSE NOTES: Patient turned and repositioned. Family at bedside. Lasix 40 mg administered. Will continue to monitor patient.
--- NOTE | 2018-08-26 10:43 | NUR ---
RD ASSESSMENT & RECOMMENDATIONS SEE CARE ACTIVITY FOR COMPLETE ASSESSMENT DAILY ESTIMATED NEEDS: Needs based on cadiac, ca, DM 70.5kg 25-30 kcals/kg 9802-1824 total kcals 1-2 g protein/kg 71-141 g total protein Fluid per MD, on lasix NUTRITION DIAGNOSIS: 1) Swallowing / chewing difficulty r/t respiratory status as evidenced by txr to ICU, pt on venturi mask, poor po at this time. CURRENT DIET: cardiac soft easy chew PO DIET RECOMMENDATIONS: [place] REGULAR DIET at this time/ texture per ICE CREAM CHEF ADDITIONAL RECOMMENDATIONS: 1) ICE CREAM CHEF eval 2) Calibrated bed scale weights daily while on lasix 3) Add B-complex daily while on lasix 4) Monitor BG (h/o DM2, on steroidal meds as well) 5) W/ poor po intake, add GLUCERNA 1 tetra blossom w/ meals 6) Consult RD if non oral feeds are indicated 7) Check lytes daily
--- NOTE | 2018-08-26 11:32 | General Surgery Progress Note ---
General Surgery-Progress Note Subjective Additional Comments respiratory insufficiency worsening. less awake and responsive today Objective Last 24 Hour Vital Signs Date Time Temp Pulse Resp B/P (MAP) Pulse Ox O2 Delivery O2 Flow Rate FiO2 08/26/18 10:39 110 38 91 Venturi Mask 12.0 50 08/26/18 08:00 95 34 125/74 (91) 100 08/26/18 08:00 Venturi Mask 12.0 Venturi Mask 12.0 08/26/18 08:00 90 08/26/18 07:58 101 36 97 Venturi Mask 12.0 50 08/26/18 07:10 95 24 94 Venturi Mask 12.0 50 08/26/18 07:10 94 Venturi Mask 12.0 50 08/26/18 07:10 Venturi Mask 12.0 50 08/26/18 05:00 97 27 113/70 (84) 96 08/26/18 04:00 Venturi Mask 12.0 Venturi Mask 12.0 08/26/18 04:00 95 08/26/18 04:00 98.5 89 29 142/70 (94) 98 08/26/18 03:38 88 24 94 Venturi Mask 12.0 50 08/26/18 03:27 80 26 93 Venturi Mask 12.0 50 08/26/18 03:00 79 28 120/64 (82) 96 08/26/18 02:00 81 28 143/64 (90) 96 08/26/18 01:00 86 26 113/63 (80) 99 08/26/18 00:00 Venturi Mask 12.0 Venturi Mask 12.0 08/26/18 00:00 86 08/26/18 00:00 98.5 89 24 119/59 (79) 99 08/25/18 23:00 86 22 94 Venturi Mask 12.0 50 08/25/18 23:00 85 24 94/65 (75) 99 08/25/18 22:48 87 25 93 Venturi Mask 12.0 50 08/25/18 22:00 87 24 91/53 (66) 96 08/25/18 21:00 88 24 87/49 (62) 95 08/25/18 20:00 98.7 89 26 103/47 (65) 100 08/25/18 20:00 76 08/25/18 20:00 Venturi Mask 12.0 Venturi Mask 12.0 08/25/18 19:46 Venturi Mask 12.0 50 08/25/18 19:46 92 Venturi Mask 12.0 50 08/25/18 19:44 85 24 92 Venturi Mask 12.0 50 18 19:33 84 26 93 Venturi Mask 12.0 50 08/25/18 19:00 81 27 130/77 (94) 92 08/25/18 18:00 99.9 86 27 94/49 (64) 94 08/25/18 17:00 88 28 101/53 (69) 95 08/25/18 16:00 75 08/25/18 16:00 Non-Rebreather 15.0 Non-Rebreather 15.0 Non-Rebreather 15.0 08/25/18 16:00 87 29 127/56 (79) 93 08/25/18 15:36 87 26 93 Venturi Mask 12.0 50 08/25/18 15:27 86 24 93 Venturi Mask 12.0 50 08/25/18 13:00 85 24 130/77 (94) 90 08/25/18 12:00 100.0 74 25 105/54 (71) 93 08/25/18 12:00 75 08/25/18 12:00 Non-Rebreather 15.0 Non-Rebreather 15.0 Non-Rebreather 15.0 I&O Intake and Output 08/25/18 08/26/18 19:00 07:00 Intake Total 1803.337 ml 1500.000 ml Output Total 1830 ml 2200 ml Balance -26.663 ml -700.000 ml Intake Oral 990 ml 1150 ml IV Total 813.337 ml 350.000 ml Output Urine Total 1830 ml 2200 ml Drains: none Cardiovascular: RSR Respiratory: decreased breath sounds Abdomen: soft, distended, non-tender, present bowel sounds Extremities: no tenderness, no cyanosis Laboratory Tests Test 08/25/18 16:03 08/26/18 04:35 08/26/18 10:47 Urine Color Pale yellow Urine Appearance Clear Urine pH 5 (4.5-8.0) Urine Specific [place] 1.005 (1.005-1.035) Urine Protein Negative (NEGATIVE) Urine Glucose (UA) Negative (NEGATIVE) Urine Ketones Negative (NEGATIVE) Urine Blood 5+ (NEGATIVE) H Urine Nitrite Negative (NEGATIVE) Urine Bilirubin Negative (NEGATIVE) Urine Urobilinogen Normal MG/DL (0.0-1.0) Urine Leukocyte Esterase Negative (NEGATIVE) Urine RBC 40-60 /HPF (0 - 0) H Urine WBC 0-2 /HPF (0 - 0) Urine Squamous Epithelial Cells Occasional /LPF Urine Uric Acid Crystals Few /LPF (NONE) H Urine Bacteria Occasional /HPF (NONE) White Blood Count 11.4 K/UL (4.8-10.8) H Red Blood Count 3.59 M/UL (4.70-6.10) L Hemoglobin 10.8 G/DL (14.2-18.0) L Hematocrit 32.0 % (42.0-52.0) L Mean Corpuscular Volume 89 FL (80-99) Mean Corpuscular Hemoglobin 30.2 PG (27.0-31.0) Mean Corpuscular Hemoglobin Concent 33.9 G/DL (32.0-36.0) Red Cell Distribution Width 12.4 % (11.6-14.8) Platelet Count 85 K/UL (150-450) L Mean Platelet Volume 6.7 FL (6.5-10.1) Neutrophils (%) (Auto) % (45.0-75.0) Lymphocytes (%) (Auto) % (20.0-45.0) Monocytes (%) (Auto) % (1.0-10.0) Eosinophils (%) (Auto) % (0.0-3.0) Basophils (%) (Auto) % (0.0-2.0) Differential Total Cells Counted 100 Neutrophils % (Manual) 55 % (45-75) Lymphocytes % (Manual) 40 % (20-45) Monocytes % (Manual) 5 % (1-10) Eosinophils % (Manual) 0 % (0-3) Basophils % (Manual) 0 % (0-2) Band Neutrophils 0 % (0-8) Platelet Estimate Decreased L Platelet Morphology Normal Hypochromasia 1+ Anisocytosis 1+ Sodium Level 144 MMOL/L (136-145) Potassium Level 4.1 MMOL/L (3.5-5.1) Chloride Level 110 MMOL/L (98-107) H Carbon Dioxide Level 21 MMOL/L (21-32) Anion Gap 13 mmol/L (5-15) Blood Urea Nitrogen 21 mg/dL (7-18) H Creatinine 1.2 MG/DL (0.55-1.30) Estimat Glomerular Filtration Rate mL/min (>60) Glucose Level 156 MG/DL (74-106) H Calcium Level 7.9 MG/DL (8.5-10.1) L Total Bilirubin 0.2 MG/DL (0.2-1.0) Aspartate Amino Transf (AST/SGOT) 107 U/L (15-37) H Alanine Aminotransferase (ALT/SGPT) 87 U/L (12-78) H Alkaline Phosphatase 48 U/L (46-116) Total Protein 6.2 G/DL (6.4-8.2) L Albumin 3.3 G/DL (3.4-5.0) L Globulin 2.9 g/dL Albumin/Globulin Ratio 1.1 (1.0-2.7) Vancomycin Level Trough 12.6 ug/mL (5.0-12.0) H Arterial Blood pH 7.619 (7.350-7.450) Arterial Blood Partial Pressure CO2 25.7 mmHg (35.0-45.0) L Arterial Blood Partial Pressure O2 50.7 mmHg (75.0-100.0) L Arterial Blood HCO3 25.8 mmol/L (22.0-26.0) Arterial Blood Oxygen Saturation 89.9 % (95-100) *L Arterial Blood Base Excess 5.6 (-2-2) H Danny Test Positive Plan Problems: (1) Sepsis (2) Abdominal distension (gaseous) Assessment & Plan: Abdominal distention / discomfort. no n/v/f/c. +flatus. feels bloated. exam with mild distention/non tender CT - Mildly fluid-filled small bowel loops, nonspecific, No acute process otherwise, Postcholecystectomy changes. What are probably hepatic cysts adjacent to the gallbladder fossa mimics fluid in the gallbladder fossa on the axial views, but appear to be cysts on the coronal images. Nonetheless, biloma or other pathologic collection not completely excludable Multiple nonobstructive left renal calculi Sarmiento catheter Bilateral basilar pulmonary interstitial prominence, nonspecific Scoliosis and spondylosis KUB - Nonspecific prominent but not frankly dilated gas-filled small bowel loops , decreased from previous day's exam Satisfactory position right groin central venous catheter worsening respiratory status requiring intubation -no acute surgical intervention planned -okay for diet as tolerated -Rx as written -will follow clinically with exams thank you for allowing me to participate in patients care David Daley Aug 26, 2018 11:32
--- NOTE | 2018-08-26 12:00 | NUR ---
NURSE NOTES: Patient intubated by ER doctor at 11:30. SUCC and Etomodate given per MD doctor order. 7.5 23 cm lipline on Right side. AC 12, VT 500, FiO2 100% and Peep of 5. ABG order per protocol at 12:30.
--- NOTE | 2018-08-26 12:51 | Diagnostic Imaging Report ---
Indication: Shortness of breath Technique: One view of the chest Comparison: 08/25/2018 Findings: Less optimal inspiration currently Extensive bilateral infiltrates versus edema appear unchanged on the right, slightly worse on the left. There may be some pleural fluid on the left. The heart size is normal Impression: Bilateral infiltrates again demonstrated, slightly worse on the left over one
--- NOTE | 2018-08-26 13:41 | NUR ---
CASE MANAGEMENT:REVIEW 08/26/18 SI: SEPSIS. ILEUS 110 38 125/74 100% ON 12L/VENTURI MASK IS: IV FENTANYL Q24 IVF@125/HR IV MEROPENEM Q8HRS IV VANCOMYCIN Q12 IV PROTONIX QD IV SOLUCORTEF Q8HRS HEPARIN SQ Q12 : ICU STATUS PLAN: SERIAL KUB EMPIRIC ABX BEGIN CARDIAC DIET
[2018-08-26] MEDS ORDERED: Amikacin Rx to dose MISC PRN (13:45)
[2018-08-26] MEDS: Acetaminophen 650 MG SUPP RECTAL PRN (14:00)
--- NOTE | 2018-08-26 14:00 | NUR ---
NURSE NOTES: Patient's unstable blood pressure reported to Dr. Bonilla & Dr. Fortune. Dr. Bonilla refused suggestion of PICC/CEntral line and pressors at this time. Doctor instead increased dose of hydrocortisone. Will follow MD orders.
--- NOTE | 2018-08-26 14:10 | Infectious Diseases Prog Note ---
Assessment/Plan Assessment/Plan ASSESSMENT/PLAN: 1. 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 hcap, ? aspiration, respiratory failure, on vent - meropenem and vancomycin, amikacin added - f/u on cultures - steroids - monitor labs, bp, temps, chest x-ray - icu care, bp support, vent support - communicated with Dr. Bonilla - d/w RN - d/w family member - see multiple orders 2. The patient has a history of adrenal insufficiency. 3. History of melanoma in remission. 4. History of biliary sepsis, status post cholecystectomy. 5. Hypothyroidism. 6. Hypertension. 7. Diabetes. 8. History of cancer, which I believe is the melanoma. 9. Past medical history noted. 10. No known drug allergies. 11. Social history is negative. 12. Family history is negative. 13. MAR was noted. 14. Case was discussed with RN. 15. Case was discussed with Dr. Bonilla. 16. Case was discussed with the patient's family. 17. The patient was seen in the emergency room 18. The patient will need ICU care. 19. Continue treatment per primary consultants. 20. Notes and records were noted. 21. Orders were entered. 22. Case was discussed with pharmacy. 23. Skin care protocol. Subjective Constitutional: Reports: fever, other - now intubated, may require pressors, + vent, sedated but opens eyes to name HEENT: Reports: congestion Respiratory: Reports: shortness of breath Cardiovascular: Denies: chest pain Gastrointestinal/Abdominal: Denies: nausea, vomiting, diarrhea Genitourinary: Reports: other - + reyes Neurologic: Reports: weakness, other - sedated, on vent Psychiatric: Reports: other - na Skin: Denies: rash Hematologic: Denies: bleeding Musculoskeletal: Reports: other - na Allergies: Coded Allergies: No Known Allergies (Unverified , 08/22/18) Objective Vital Signs Last 24 Hour Vital Signs Date Time Temp Pulse Resp B/P (MAP) Pulse Ox O2 Delivery O2 Flow Rate FiO2 08/26/18 10:59 107 39 30 Venturi Mask 14.0 55 08/26/18 10:39 110 38 91 Venturi Mask 12.0 50 08/26/18 08:00 95 34 125/74 (91) 100 08/26/18 08:00 Venturi Mask 12.0 Venturi Mask 12.0 08/26/18 08:00 90 08/26/18 07:58 101 36 97 Venturi Mask 12.0 50 08/26/18 07:10 95 24 94 Venturi Mask 12.0 50 08/26/18 07:10 94 Venturi Mask 12.0 50 08/26/18 07:10 Venturi Mask 12.0 50 08/26/18 05:00 97 27 113/70 (84) 96 08/26/18 04:00 Venturi Mask 12.0 Venturi Mask 12.0 08/26/18 04:00 95 08/26/18 04:00 98.5 89 29 142/70 (94) 98 08/26/18 03:38 88 24 94 Venturi Mask 12.0 50 08/26/18 03:27 80 26 93 Venturi Mask 12.0 50 08/26/18 03:00 79 28 120/64 (82) 96 08/26/18 02:00 81 28 143/64 (90) 96 08/26/18 01:00 86 26 113/63 (80) 99 08/26/18 00:00 Venturi Mask 12.0 Venturi Mask 12.0 08/26/18 00:00 86 08/26/18 00:00 98.5 89 24 119/59 (79) 99 08/25/18 23:00 86 22 94 Venturi Mask 12.0 50 08/25/18 23:00 85 24 94/65 (75) 99 08/25/18 22:48 87 25 93 Venturi Mask 12.0 50 08/25/18 22:00 87 24 91/53 (66) 96 08/25/18 21:00 88 24 87/49 (62) 95 08/25/18 20:00 98.7 89 26 103/47 (65) 100 08/25/18 20:00 76 08/25/18 20:00 Venturi Mask 12.0 Venturi Mask 12.0 18 19:46 Venturi Mask 12.0 50 18 19:46 92 Venturi Mask 12.0 50 08/25/18 19:44 85 24 92 Venturi Mask 12.0 50 08/25/18 19:33 84 26 93 Venturi Mask 12.0 50 08/25/18 19:00 81 27 130/77 (94) 92 08/25/18 18:00 99.9 86 27 94/49 (64) 94 08/25/18 17:00 88 28 101/53 (69) 95 08/25/18 16:00 75 08/25/18 16:00 Non-Rebreather 15.0 Non-Rebreather 15.0 Non-Rebreather 15.0 08/25/18 16:00 87 29 127/56 (79) 93 08/25/18 15:36 87 26 93 Venturi Mask 12.0 50 08/25/18 15:27 86 24 93 Venturi Mask 12.0 50 Height (Feet): 5 Height (Inches): 7.00 Weight (Pounds): 155 General Appearance: other - + vent, now intubated HEENT: normocephalic, atraumatic, anicteric Respiratory/Chest: respiratory distress, crackles/rales, rhonchi - bilaterally , other - on vent Cardiovascular: normal rate, regular rhythm, no gallop/murmur Abdomen: normal bowel sounds, soft, non tender, no organomegaly, non distended Genitourinary: other - + reyes - Extremities: no cyanosis Skin: no rash Neurologic/Psychiatric: life skills trainer II-XII grossly normal, responsive, other - on vent but responds to name Lymphatic: no neck adenopathy Musculoskeletal: no effusion Objective CT scan of abdomen and pelvis: Impression: Mildly fluid-filled small bowel loops, nonspecific No acute process otherwise Postcholecystectomy changes. What are probably hepatic cysts adjacent to the gallbladder fossa mimics fluid in the gallbladder fossa on the axial views, but appear to be cysts on the coronal images. Nonetheless, biloma or other pathologic collection not completely excludable Multiple nonobstructive left renal calculi Reyes catheter Bilateral basilar pulmonary interstitial prominence, nonspecific Scoliosis and spondylosis Chest x-ray - nad x 2, reports noted Chest x-ray - 08/25/18 Impression: Interval worsening of aeration with development of dense airspace opacities in the medial right mid/lower lung and patchy opacities in the right upper lung concerning for multifocal pneumonia. Perihilar interstitial opacities in the left raise question for a degree of underlying congestion/fluid overload. Clinical correlation/follow-up recommended. Findings discussed with ordering physician Dr. Bonilla at time of dictation of the final report. Chest - x-ray - 08/26/18 - Procedure: XRAY Chest 1v Indication: Shortness of breath Technique: One view of the chest Comparison: 08/25/2018 Findings: Less optimal inspiration currently Extensive bilateral infiltrates versus edema appear unchanged on the right, slightly worse on the left. There may be some pleural fluid on the left. The heart size is normal Impression: Bilateral infiltrates again demonstrated, slightly worse on the left over one Microbiology Date/Time Source Procedure Growth Status 08/23/18 16:00 Blood Blood Culture - Preliminary NO GROWTH AFTER 48 HOURS Resulted 08/22/18 20:30 Nasal Nares MRSA Culture - Final NO METHICILLIN RESISTANT STAPH AUREUS... Complete 08/24/18 08:00 Stool Stool Culture - Preliminary NO SALMONELLA,SHIGELLA,OR CAMPYLOBACT... Resulted 08/25/18 16:03 Indwelling Cath Urine Culture - Preliminary NO GROWTH Resulted 08/22/18 20:30 Rectum VRE Culture - Final NO VANCOMYCIN RESISTANT ENTEROCOCCUS ... Complete 08/22/18 20:30 Rectum - Final NO CARBAPENEM-RESISTANT ENTEROBACTERI... Complete Microbiology Date/Time Source Procedure Growth Status 08/23/18 16:00 Blood Blood Culture - Preliminary NO GROWTH AFTER 48 HOURS Resulted 08/23/18 15:45 Blood Blood Culture - Preliminary NO GROWTH AFTER 48 HOURS Resulted 08/24/18 08:00 Stool Stool Culture - Preliminary NO SALMONELLA,SHIGELLA,OR CAMPYLOBACT... Resulted 08/25/18 16:03 Indwelling Cath Urine Culture - Preliminary NO GROWTH Resulted Laboratory Tests Test 08/25/18 16:03 08/26/18 04:35 08/26/18 10:47 08/26/18 12:33 Urine Color Pale yellow Urine Appearance Clear Urine pH 5 (4.5-8.0) Urine Specific [place] 1.005 (1.005-1.035) Urine Protein Negative (NEGATIVE) Urine Glucose (UA) Negative (NEGATIVE) Urine Ketones Negative (NEGATIVE) Urine Blood 5+ (NEGATIVE) H Urine Nitrite Negative (NEGATIVE) Urine Bilirubin Negative (NEGATIVE) Urine Urobilinogen Normal MG/DL (0.0-1.0) Urine Leukocyte Esterase Negative (NEGATIVE) Urine RBC 40-60 /HPF (0 - 0) H Urine WBC 0-2 /HPF (0 - 0) Urine Squamous Epithelial Cells Occasional /LPF Urine Uric Acid Crystals Few /LPF (NONE) H Urine Bacteria Occasional /HPF (NONE) White Blood Count 11.4 K/UL (4.8-10.8) H Red Blood Count 3.59 M/UL (4.70-6.10) L Hemoglobin 10.8 G/DL (14.2-18.0) L Hematocrit 32.0 % (42.0-52.0) L Mean Corpuscular Volume 89 FL (80-99) Mean Corpuscular Hemoglobin 30.2 PG (27.0-31.0) Mean Corpuscular Hemoglobin Concent 33.9 G/DL (32.0-36.0) Red Cell Distribution Width 12.4 % (11.6-14.8) Platelet Count 85 K/UL (150-450) L Mean Platelet Volume 6.7 FL (6.5-10.1) Neutrophils (%) (Auto) % (45.0-75.0) Lymphocytes (%) (Auto) % (20.0-45.0) Monocytes (%) (Auto) % (1.0-10.0) Eosinophils (%) (Auto) % (0.0-3.0) Basophils (%) (Auto) % (0.0-2.0) Differential Total Cells Counted 100 Neutrophils % (Manual) 55 % (45-75) Lymphocytes % (Manual) 40 % (20-45) Monocytes % (Manual) 5 % (1-10) Eosinophils % (Manual) 0 % (0-3) Basophils % (Manual) 0 % (0-2) Band Neutrophils 0 % (0-8) Platelet Estimate Decreased L Platelet Morphology Normal Hypochromasia 1+ Anisocytosis 1+ Sodium Level 144 MMOL/L (136-145) Potassium Level 4.1 MMOL/L (3.5-5.1) Chloride Level 110 MMOL/L (98-107) H Carbon Dioxide Level 21 MMOL/L (21-32) Anion Gap 13 mmol/L (5-15) Blood Urea Nitrogen 21 mg/dL (7-18) H Creatinine 1.2 MG/DL (0.55-1.30) Estimat Glomerular Filtration Rate mL/min (>60) Glucose Level 156 MG/DL (74-106) H Calcium Level 7.9 MG/DL (8.5-10.1) L Total Bilirubin 0.2 MG/DL (0.2-1.0) Aspartate Amino Transf (AST/SGOT) 107 U/L (15-37) H Alanine Aminotransferase (ALT/SGPT) 87 U/L (12-78) H Alkaline Phosphatase 48 U/L (46-116) Total Protein 6.2 G/DL (6.4-8.2) L Albumin 3.3 G/DL (3.4-5.0) L Globulin 2.9 g/dL Albumin/Globulin Ratio 1.1 (1.0-2.7) Vancomycin Level Trough 12.6 ug/mL (5.0-12.0) H Arterial Blood pH 7.619 (7.350-7.450) 7.543 (7.350-7.450) Arterial Blood Partial Pressure CO2 25.7 mmHg (35.0-45.0) L 32.7 mmHg (35.0-45.0) L Arterial Blood Partial Pressure O2 50.7 mmHg (75.0-100.0) L 468.3 mmHg (75.0-100.0) H Arterial Blood HCO3 25.8 mmol/L (22.0-26.0) 27.5 mmol/L (22.0-26.0) H Arterial Blood Oxygen Saturation 89.9 % (95-100) *L 98.9 % (95-100) Arterial Blood Base Excess 5.6 (-2-2) H 5.4 (-2-2) H Danny Test Positive Positive Current Medications Medications (Trade) Dose Ordered Sig/Elli Route PRN Reason Start Time Stop Time Status Last Admin Dose Admin Acetaminophen (Tylenol) 650 mg Q4H PRN RECTAL Mild Pain (Pain Scale 1-3) 08/26/18 11:00 09/25/18 10:59 Albuterol/ Ipratropium (Albuterol/ Ipratropium) 3 ml Q4HRT HHN 08/25/18 11:00 08/30/18 10:59 08/26/18 10:39 Dextrose (Dextrose 50%) 25 ml Q30M PRN IV Hypoglycemia 08/25/18 08:30 09/21/18 23:29 Dextrose (Dextrose 50%) 50 ml Q30M PRN IV Hypoglycemia 08/25/18 08:30 09/21/18 23:29 Fentanyl Citrate 1000 mcg/Sodium Chloride 100 ml @ 0 mls/hr Q24H IV 08/26/18 13:00 09/02/18 12:59 Guaifenesin/ Dextromethorphan (Robitussin DM Syrup) 5 ml Q6H PRN ORAL For Cough 08/25/18 08:30 09/23/18 08:29 Heparin Sodium (Porcine) (Heparin 5000 units/ml) 5,000 units EVERY 12 HOURS SUBQ 08/25/18 09:00 09/22/18 08:59 08/25/18 11:53 Hydrocortisone (Solu-CORTEF) 30 mg EVERY 8 HOURS IV 08/26/18 07:15 09/21/18 21:59 08/26/18 07:26 Insulin Aspart (NovoLOG) EVERY 6 HOURS SUBQ 08/25/18 12:00 09/22/18 00:00 08/25/18 18:33 Iopamidol (Isovue-300 100ml) 100 ml NOW PRN INJ RADIOLOGY 08/25/18 17:00 08/26/18 16:59 Levothyroxine Sodium (Synthroid) 150 mcg DAILY@0630 ORAL 08/26/18 06:30 09/22/18 06:29 08/26/18 06:25 Meropenem 1 gm/ Sodium Chloride 100 ml @ 200 mls/hr Q8HR IVPB 08/25/18 16:00 08/30/18 15:59 08/26/18 06:25 Ondansetron HCl (Zofran) 4 mg Q4H PRN IVP Nausea & Vomiting 08/25/18 09:15 09/22/18 17:03 Pantoprazole (Protonix) 40 mg DAILY ORAL 08/25/18 09:00 09/24/18 08:59 08/25/18 09:17 Sodium Chloride 1,000 ml @ 125 mls/hr Q8H IV 08/26/18 11:15 09/25/18 11:14 08/26/18 11:31 Vancomycin HCl (Vanco rx to dose) 1 ea DAILY PRN MISC Per rx protocol 08/25/18 09:00 09/21/18 19:44 Vancomycin HCl/ Dextrose 250 ml @ 166.667 mls/hr Q12H IVPB 08/25/18 16:00 08/31/18 15:59 08/26/18 04:53 Treasure Vargas MD Aug 26, 2018 14:10
[2018-08-26] MEDS ORDERED: Lidocaine 1% Plain 30 ml INJ PRN (14:30)
[2018-08-26] MEDS ORDERED: Heparin 2000 units/Ns 1000ml INJ PRN (14:30)
[2018-08-26] MEDS ORDERED: Amikacin 1,000 MG in NS 110 ML IV SCH (15:00)
--- NOTE | 2018-08-26 15:05 | NUR ---
NURSE NOTES: Uncooperative, aggressive family. Getting in the way of patient care. Family was asked to step outside and only go in the room 2 people at a time per ICU visiting policy.
--- NOTE | 2018-08-26 15:19 | NUR ---
NURSE NOTES: Current BP of 80/[address] Bonilla again. Message left with AYLEEN to dary DUDLEY.
--- NOTE | 2018-08-26 16:02 | Diagnostic Imaging Report ---
Indication: Post intubation Technique: One view of the chest Comparison: 4 hours earlier Findings: Interim endotracheal intubation, endotracheal tube tip in good position approximately 3 cm above the hanna. There is improved aeration of the lungs as a result. There is bilateral perihilar interstitial and airspace disease again demonstrated, stable slightly improved allowing for differences in degree of inspiration. Heart size is normal. There are left supraclavicular surgical clips Impression: Satisfactory endotracheal intubation Stable or somewhat improved bilateral perihilar interstitial infiltrates versus edema
[2018-08-26 16:33] LABS: HEMATOCRIT 37.5 % (42.0-52.0); HEMOGLOBIN 12.7 G/DL (14.2-18.0); MEAN CORPUSCULAR VOLUME 87 FL (80-99); PLATELET COUNT 110 K/UL (150-450); RED BLOOD COUNT 4.31 M/UL (4.70-6.10); RED CELL DISTRIBUTION WIDTH 11.4 % (11.6-14.8); WHITE BLOOD COUNT 15.8 K/UL (4.8-10.8)
[2018-08-26 16:34] LABS: BASOPHILS % (AUTO) 0.5 % (0.0-2.0); LYMPHOCYTES % (AUTO) 7.8 % (20.0-45.0); MONOCYTES % (AUTO) 2.6 % (1.0-10.0); NEUTROPHILS % (AUTO) 89.1 % (45.0-75.0)
[2018-08-26 16:51] LABS: ALANINE AMINOTRANSFERASE 62 U/L (12-78); ALBUMIN 2.9 G/DL (3.4-5.0); ALBUMIN/GLOBULIN RATIO 0.7 (1.0-2.7); ALKALINE PHOSPHATASE 58 U/L (46-116); ANION GAP 12 mmol/L (5-15); ASPARTATE AMINO TRANSFERASE 52 U/L (15-37); BILIRUBIN,TOTAL 1.3 MG/DL (0.2-1.0); BLOOD UREA NITROGEN 19 mg/dL (7-18); CALCIUM 8.2 MG/DL (8.5-10.1); CARBON DIOXIDE 25 MMOL/L (21-32); CHLORIDE 99 MMOL/L (98-107); CREATININE 1.6 MG/DL (0.55-1.30); SODIUM 136 MMOL/L (136-145)
[2018-08-26 16:53] LABS: POTASSIUM 2.6 MMOL/L (3.5-5.1)
[2018-08-26 16:54] LABS: BILIRUBIN,DIRECT 0.5 MG/DL (0.0-0.3)
[2018-08-26] MEDS ORDERED: Hydrocortisone 100mg Inj IV SCH (17:03)
--- NOTE | 2018-08-26 17:03 | NUR ---
NURSE NOTES: Stat one dose of Solu-Cortef given for BP per Dr. Bonilla order. Will continue to monitor patient.
--- NOTE | 2018-08-26 17:32 | Diagnostic Imaging Report ---
EXAM: XR Chest, 1 View CLINICAL HISTORY: ALOC TECHNIQUE: Frontal view of the chest. COMPARISON: 08/26/2018 12:11 PM. FINDINGS: Lungs: Grossly stable pulmonary edema/infiltrates, right more than left. Pleural space: Unremarkable. No pneumothorax. Heart: Unremarkable. No cardiomegaly. Mediastinum: Unremarkable. Bones/joints: Unremarkable. Tubes, lines and devices: Right PICC in SVC. Stable ET tube. IMPRESSION: 1. Right PICC in SVC. 2. Grossly stable pulmonary edema/infiltrates, right more than left.
--- NOTE | 2018-08-26 18:00 | NUR ---
NURSE NOTES: Dr. Fu contacted for second opinion. Doctor said he will see the patient on wednesday. Patient turned and repositioned. Remains on fentanyl drip. Blood pressure spikes up when patient is weaned off fentanyl and goes low when fentanyl is on. Order obtained for potassium replacement. Will continue plan of care.
--- NOTE | 2018-08-26 19:26 | NUR ---
NURSE NOTES: Received pt, intubated with ETT 7.5/23cm at [facility]. AC/12/TV500/FIO2 50%/PEEP 5, SPO2 94%, RR 18. Chest rise and fall noted. Rhonchi heard bilateral lungs. Abdomen is flat and soft, normoactive bowel sounds. Bilateral soft wrist restraints in place, skin intact and warm to touch. Afebrile, ax temp 99.2. BP 86/43. Fentanyl gtt decreased to 80mcg/hr, pt resting with eyes closed but able to arouse with touch and vocal stimuli. SonQuoc at bedside, updated plan of care. RADHA PICC running 1/2NS@125cc/hr and 10mEq KCL IV. RFA and LFA 20G SL. NPO maintained. Pt is SR on library monitor with HR in 80's. FC draining to gravity. Bed locked, alarmed and in lowest position. Will continue plan of care.
--- NOTE | 2018-08-26 19:32 | NUR ---
HAND-OFF: Report given to Adrienne RN using SBAR. VSS.
[2018-08-26] MEDS ORDERED: NS 275ml ONE ×2 (19:34→19:38)
[2018-08-26] MEDS ORDERED: Tubing IV Secondary IV ONE (19:38)
[2018-08-26] MEDS ORDERED: D5 1/2NS 1000ml IV ONE (19:38)
--- NOTE | 2018-08-26 19:40 | NUR ---
RESPIRATORY NOTE: Received pt on AC 12, 500VT, 50%, PEEP +5. Pt intubated w/ ETT 7.5 @ 24cm lipline, secured by anchorfast. Pt awake/alert, needed a little bit or reinforcement to follow commands. B/S wood. rhonchi, sxn small amounts of thick, pink/banks/brown secretions w/ occasional red specks. Family currently at bedside. Vent plugged into red outlet, ambubag at bedside. Pt comfortable on current settings, in no apparent distress at this time. Will continue to monitor pt.
--- NOTE | 2018-08-26 20:05 | NUR ---
NURSE NOTES: Patient has periods of hypotension 72/41 and increases to 134/71 when awake and agitated. Decreased Fentanyl to 50mcg/hr. Will continue to monitor.
[2018-08-26] MEDS: Dyna-Hex 2% Top Sol 2oz TOPIC SCH (20:12)
--- NOTE | 2018-08-26 22:56 | NUR ---
NURSE NOTES: SBP consistently in 60's-70's. Turned off Fentanyl gtt. Pt is awake and agitated. Paged Dr. Bonilla, awaiting for call back.
[2018-08-26] MEDS: Potassium Chloride 20 MEQ in 1/2 NS 1000ml 1,000 ML IV SCH (23:08)
[2018-08-27] VITALS (41 sets, daily range): BP systolic 72–143; BP diastolic 44–81
[2018-08-27] MEDS: DOPamine 400mg/250ml 250 ML IV SCH (00:11)
--- NOTE | 2018-08-27 02:30 | Progress Note ---
DATE: 08/26/2018 CARDIOLOGY AND INTERNAL MEDICINE PROGRESS NOTE TIME OF EVALUATION: 10 a.m. SUBJECTIVE: The patient was seen in the intensive care unit. Family conferences were undertaken both by phone with his son and in person at the bedside with his daughter and brother and sister. The patient's condition has worsened. He is extremely hypoxic with worsening acid-base parameters. He is increasingly obtunded. OBJECTIVE: VITAL SIGNS: Blood pressure 110/64, pulse 105, respiratory rate 38, temperature 100.1. Accessory muscle use. HEART: Bilateral rales. Regular rhythm. Rapid rate. Normal S1, S2. ABDOMEN: Soft. No edema. LABORATORY DATA: Sodium 144, potassium 4.1, bicarbonate 21, BUN 21, creatinine 1.2, glucose 156, AST and ALT 107 and 87, and albumin 3.3. White count is 11.4, hemoglobin 10.8. IMPRESSION: 1. Acute respiratory alkalosis. 2. Worsening pneumonia, immunocompromised state. 3. Adrenal insufficiency. 4. Hypoxia. 5. Sepsis. 6. History of melanoma. PLAN: I have spoken with the family members and made them aware of the critical condition and guarded prognosis. I have also spoken with one of his physicians, Dr. Fraire at [facility] was his surgeon several months ago for the cholecystectomy. She agrees that the patient is in no condition to be transferred nor is there any indication as he does not need a tertiary intervention presently. The patient's antibiotics are broad range. He will remain on steroids with dosing to depend on stress needs. He will be intubated and mechanically ventilated at this time. Acid-base parameters will be closely followed. Potassium will be replaced if needed and electrolytes will be closely followed as well. Nathaniel Bonilla M.D. DR: STAR JOB#: [id number] CC:
--- NOTE | 2018-08-27 02:30 | NUR ---
NURSE NOTES: Pt had x1 bright green emesis, HOB raised and sxn given. Dr. Bonilla at bedside. NGT inserted in right nare, STAT KUB ordered. titrated dopamine to 2mcg/kg/min. BP stable. Will continue to monitor.
--- NOTE | 2018-08-27 03:15 | NUR ---
NURSE NOTES: Patient had emesis x2 more, bright green. NGT intact, placement checked by auscultation witness by FAY Lundberg. Central line dressing changed on RADHA PICC. HOB in high arndt's position. Dopamine titrated to 2mcg/kg/min. Fentanyl gtt continued at 50mcg/hr. Frequent visual checks made.
[2018-08-27] MEDS: Albuterol/Ipratropium 3ml neb HHN SCH ×6 (03:19→23:02)
[2018-08-27 04:35] LABS: ALANINE AMINOTRANSFERASE 58 U/L (12-78); ALBUMIN 2.6 G/DL (3.4-5.0); ALBUMIN/GLOBULIN RATIO 0.8 (1.0-2.7); ALKALINE PHOSPHATASE 50 U/L (46-116); ANION GAP 12 mmol/L (5-15); ASPARTATE AMINO TRANSFERASE 46 U/L (15-37); BILIRUBIN,TOTAL 0.8 MG/DL (0.2-1.0); BLOOD UREA NITROGEN 28 mg/dL (7-18); CARBON DIOXIDE 23 MMOL/L (21-32); CHLORIDE 98 MMOL/L (98-107); CREATININE 2.4 MG/DL (0.55-1.30); POTASSIUM 4.4 MMOL/L (3.5-5.1); SODIUM 133 MMOL/L (136-145)
[2018-08-27] MEDS: Vancomycin 1250mg/D5W 250ml 250 ML IVPB SCH (05:39)
[2018-08-27] MEDS: Hydrocortisone 100mg Inj IV SCH ×3 (05:41→22:27)
[2018-08-27 05:49] LABS: HEMATOCRIT 34.4 % (42.0-52.0); HEMOGLOBIN 11.4 G/DL (14.2-18.0); MEAN CORPUSCULAR VOLUME 87 FL (80-99); PLATELET COUNT 110 K/UL (150-450); RED BLOOD COUNT 3.95 M/UL (4.70-6.10); RED CELL DISTRIBUTION WIDTH 11.6 % (11.6-14.8)
[2018-08-27] MEDS: NovoLOG Insulin Flexpen SUBQ SCH ×4 (06:00→18:00)
[2018-08-27] MEDS: Potassium Chloride 20 MEQ in 1/2 NS 1000ml 1,000 ML IV SCH (07:14)
--- NOTE | 2018-08-27 07:28 | NUR ---
HAND-OFF: Report given to FAY Rainey. Patient is resting in bed watching television. Replaced Fentanyl bag.
--- NOTE | 2018-08-27 08:00 | NUR ---
NURSE NOTES: Report received from Adrienne.Patient awake and restless.on Fentanyl drip increase to 100mcg/hr and Dopamine drip to 2mcg?hr.RADHA picc patent with no s/s infiltration. ETT 7.5 AC 12 Vt 500 FiO2 50% Peep 5. Vomiting green secretion. Will follow up with Dr Vera.HOB elevated for aspiration precaution. Afebrile at this time, abdomen distended, hypoactive sounds all quadrants.Will continue to monitor patient.
[2018-08-27] MEDS: Heparin 5000 units/ml inj SUBQ SCH ×2 (08:19→20:15)
--- NOTE | 2018-08-27 08:21 | NUR ---
Received Patient on ACVC RR 12, VT 500, FIO2 50%, PEEP +5. Pt intubated with ETT 7.5 at 24cm at the lip line, secured by anchorfast. Patient awake and alert. Rhonchi heard bilaterally throughout lung herron. SX moderate amount of dark yellow thick secretions. Vent plugged into red outlet, ambubag at bedside. Patient comfortable on current settings and in no apparent distress at this time. Will continue to monitor throughout the day.
[2018-08-27 08:22] LABS: AMYLASE 183 U/L (25-115)
--- NOTE | 2018-08-27 09:19 | Pulmonology Progress Note ---
Assessment/Plan Assessment/Plan IMPRESSION: 1. Malignant melanoma. 2. Pipestone's disease. 3. Sepsis? 4. S/p intubation DISCUSSION: Continue present care CXR better Will check CXR and ABg in AM Continue AC mode Aj Harding M.D. Subjective Interval Events: Intubated; on 50% fiO2; Constitutional: Reports: no symptoms HEENT: Repors: no symptoms Respiratory: Reports: no symptoms Cardiovascular: Reports: no symptoms Gastrointestinal/Abdominal: Reports: no symptoms Genitourinary: Reports: no symptoms Neurologic: Reports: no symptoms Allergies: Coded Allergies: No Known Allergies (Unverified , 08/22/18) Objective Last 24 Hour Vital Signs Date Time Temp Pulse Resp B/P (MAP) Pulse Ox O2 Delivery O2 Flow Rate FiO2 08/27/18 08:50 79 16 50 08/27/18 08:15 13 Mechanical Ventilator 50 08/27/18 07:14 17 Mechanical Ventilator 50 08/27/18 07:00 111/73 08/27/18 07:00 111/73 08/27/18 07:00 111/73 08/27/18 07:00 111/73 08/27/18 07:00 111/73 08/27/18 07:00 111/73 08/27/18 07:00 111/73 08/27/18 07:00 111/73 08/27/18 07:00 111/73 08/27/18 07:00 20 Mechanical Ventilator 50 08/27/18 07:00 83 14 100 Mechanical Ventilator 50 08/27/18 06:57 83 17 50 08/27/18 06:55 77 14 95 Mechanical Ventilator 50 08/27/18 06:00 119/80 08/27/18 06:00 119/80 08/27/18 06:00 119/80 08/27/18 06:00 119/80 08/27/18 06:00 119/80 08/27/18 06:00 119/80 08/27/18 06:00 119/80 08/27/18 06:00 119/80 08/27/18 06:00 119/80 08/27/18 06:00 20 Mechanical Ventilator 50 08/27/18 06:00 18 Mechanical Ventilator 50 08/27/18 06:00 18 Mechanical Ventilator 50 08/27/18 06:00 18 Mechanical Ventilator 50 08/27/18 06:00 18 Mechanical Ventilator 50 08/27/18 06:00 18 Mechanical Ventilator 50 08/27/18 06:00 18 Mechanical Ventilator 50 08/27/18 06:00 18 Mechanical Ventilator 50 08/27/18 06:00 18 Mechanical Ventilator 50 08/27/18 06:00 18 Mechanical Ventilator 50 08/27/18 05:30 95 18 126/81 (96) 96 08/27/18 05:05 84 14 50 08/27/18 05:00 82 16 115/62 (79) 97 08/27/18 05:00 115/62 08/27/18 05:00 115/62 08/27/18 05:00 115/62 08/27/18 05:00 115/62 08/27/18 05:00 115/62 08/27/18 05:00 115/62 08/27/18 05:00 115/62 08/27/18 05:00 18 Mechanical Ventilator 50 08/27/18 05:00 18 Mechanical Ventilator 50 08/27/18 05:00 18 Mechanical Ventilator 50 08/27/18 05:00 18 Mechanical Ventilator 50 08/27/18 05:00 18 Mechanical Ventilator 50 08/27/18 05:00 18 Mechanical Ventilator 50 08/27/18 05:00 18 Mechanical Ventilator 50 08/27/18 05:00 18 Mechanical Ventilator 50 08/27/18 04:30 84 13 113/67 (82) 97 08/27/18 04:00 87 14 78/49 (59) 96 08/27/18 04:00 Mechanical Ventilator 08/27/18 04:00 78/49 08/27/18 04:00 78/49 08/27/18 04:00 78/49 08/27/18 04:00 78/49 08/27/18 04:00 78/49 08/27/18 04:00 78/49 08/27/18 04:00 78/49 08/27/18 04:00 78/49 08/27/18 04:00 78/49 08/27/18 04:00 18 Mechanical Ventilator 50 08/27/18 04:00 18 Mechanical Ventilator 50 08/27/18 04:00 18 Mechanical Ventilator 50 08/27/18 04:00 18 Mechanical Ventilator 50 08/27/18 04:00 18 Mechanical Ventilator 50 08/27/18 04:00 17 Mechanical Ventilator 50 08/27/18 04:00 18 Mechanical Ventilator 50 08/27/18 04:00 18 Mechanical Ventilator 50 08/27/18 04:00 18 Mechanical Ventilator 50 08/27/18 04:00 18 Mechanical Ventilator 50 08/27/18 04:00 86 08/27/18 03:30 85 16 105/62 (76) 96 08/27/18 03:29 74 16 100 Mechanical Ventilator 50 08/27/18 03:19 86 19 97 Mechanical Ventilator 50 08/27/18 03:18 86 19 50 08/27/18 03:00 86 17 106/63 (77) 97 08/27/18 03:00 106/63 08/27/18 03:00 106/63 08/27/18 03:00 106/63 08/27/18 03:00 106/63 08/27/18 03:00 106/63 08/27/18 03:00 106/63 08/27/18 03:00 106/63 08/27/18 03:00 106/63 08/27/18 03:00 106/63 08/27/18 03:00 18 Mechanical Ventilator 50 08/27/18 02:30 90 18 100/56 (71) 95 08/27/18 02:00 127/73 08/27/18 02:00 127/73 08/27/18 02:00 127/73 08/27/18 02:00 127/73 08/27/18 02:00 127/73 08/27/18 02:00 127/73 08/27/18 02:00 127/73 08/27/18 02:00 127/73 08/27/18 02:00 127/73 08/27/18 02:00 20 Mechanical Ventilator 50 08/27/18 02:00 91 19 127/73 (91) 96 08/27/18 01:30 89 18 114/66 (82) 99 08/27/18 01:15 83 14 50 08/27/18 01:00 82 18 75/48 (57) 98 08/27/18 01:00 75/48 08/27/18 01:00 75/48 08/27/18 01:00 75/48 08/27/18 01:00 75/48 08/27/18 01:00 75/48 08/27/18 01:00 75/48 08/27/18 01:00 75/48 08/27/18 01:00 75/48 08/27/18 01:00 75/48 08/27/18 01:00 22 Mechanical Ventilator 50 08/27/18 00:30 86 24 73/44 (54) 95 08/27/18 00:11 76/47 08/27/18 00:00 98.7 89 26 72/44 (53) 94 08/27/18 00:00 15 Mechanical Ventilator 50 08/27/18 00:00 Mechanical Ventilator 08/27/18 00:00 87 08/26/18 23:30 87 17 82/50 (61) 96 08/26/18 23:05 78 18 99 Mechanical Ventilator 50 08/26/18 23:00 86 18 118/68 (85) 99 08/26/18 23:00 16 Mechanical Ventilator 16.0 50 08/26/18 22:55 86 18 50 08/26/18 22:55 86 18 98 Mechanical Ventilator 50 08/26/18 22:30 82 16 103/61 (75) 98 08/26/18 22:00 89 17 65/38 (47) 96 08/26/18 22:00 20 Mechanical Ventilator 50 08/26/18 21:45 93 17 63/38 (46) 94 18 21:30 94 17 64/38 (47) 93 08/26/18 21:15 93 17 82/49 (60) 93 08/26/18 21:05 96 17 50 08/26/18 21:00 20 Mechanical Ventilator 50 08/26/18 21:00 95 17 66/37 (47) 93 08/26/18 20:45 95 24 64/44 (51) 92 08/26/18 20:30 95 17 78/35 (49) 93 08/26/18 20:15 94 17 71/43 (52) 93 08/26/18 20:12 18 Mechanical Ventilator 50 08/26/18 20:00 92 18 91/43 (59) 92 08/26/18 20:00 Mechanical Ventilator 08/26/18 20:00 87 08/26/18 19:45 82 18 134/71 (92) 92 08/26/18 19:45 90 18 100 Mechanical Ventilator 50 08/26/18 19:35 78 24 97 Mechanical Ventilator 50 08/26/18 19:33 78 24 50 08/26/18 19:30 86 18 72/41 (51) 97 08/26/18 19:15 93 19 115/66 (82) 95 08/26/18 19:00 18 Mechanical Ventilator 08/26/18 19:00 99.8 103 19 86/43 (57) 95 08/26/18 17:54 20 Mechanical Ventilator 08/26/18 17:50 50 08/26/18 17:30 15 Mechanical Ventilator 08/26/18 17:15 18 Mechanical Ventilator 08/26/18 17:00 22 Mechanical Ventilator 08/26/18 16:55 104 20 45 08/26/18 16:00 50 08/26/18 16:00 Mechanical Ventilator Mechanical Ventilator 08/26/18 16:00 105 08/26/18 16:00 20 Mechanical Ventilator 08/26/18 16:00 103 22 90/56 (67) 100 08/26/18 15:04 109 27 97 Mechanical Ventilator 14.0 45 08/26/18 15:00 22 Mechanical Ventilator 08/26/18 14:50 104 22 45 08/26/18 14:47 106 25 100 Mechanical Ventilator 50 08/26/18 14:30 45 08/26/18 14:30 98.9 08/26/18 14:13 22 Mechanical Ventilator 50 08/26/18 14:00 50 08/26/18 14:00 105 25 85/50 (62) 100 08/26/18 13:30 98.9 08/26/18 13:00 50 08/26/18 13:00 115 28 90/55 (67) 100 08/26/18 13:00 22 Mechanical Ventilator 50 08/26/18 12:48 123 30 45 08/26/18 12:00 103 08/26/18 12:00 100 08/26/18 12:00 Mechanical Ventilator Mechanical Ventilator 08/26/18 12:00 101.5 122 29 167/90 (115) 100 08/26/18 11:40 101 24 100 08/26/18 11:30 100 08/26/18 11:00 121 28 165/93 (117) 100 08/26/18 10:59 107 39 30 Venturi Mask 14.0 55 08/26/18 10:39 110 38 91 Venturi Mask 12.0 50 08/26/18 10:00 105 38 110/64 (79) 91 Intake and Output 08/26/18 08/27/18 18:59 06:59 Intake Total 680.334 ml 592.62 ml Output Total 1450 ml 800 ml Balance -769.666 ml -207.38 ml IV Total 680.334 ml 592.62 ml Output Urine Total 1450 ml 550 ml Emesis 250 ml General Appearance: no acute distress HEENT: normocephalic Respiratory/Chest: chest wall non-tender, lungs clear Cardiovascular: normal peripheral pulses, normal rate Abdomen: normal bowel sounds, soft, non tender Microbiology Date/Time Source Procedure Growth Status 08/26/18 05:00 Sputum Induced Gram Stain - Final Resulted 08/26/18 05:00 Sputum Induced Sputum Culture Pending Resulted 08/25/18 16:03 Indwelling Cath Urine Culture - Final NO GROWTH AFTER 48 HOURS Complete Laboratory Tests 08/26/18 10:47: Arterial Blood pH 7.619*H, Arterial Blood Partial Pressure CO2 25.7L, Arterial Blood Partial Pressure O2 50.7L, Arterial Blood HCO3 25.8, Arterial Blood Oxygen Saturation 89.9*L, Arterial Blood Base Excess 5.6H, Danny Test Positive 08/26/18 12:33: Arterial Blood pH 7.543H, Arterial Blood Partial Pressure CO2 32.7L, Arterial Blood Partial Pressure O2 468.3H, Arterial Blood HCO3 27.5H, Arterial Blood Oxygen Saturation 98.9, Arterial Blood Base Excess 5.4H, Danny Test Positive 08/26/18 15:30: White Blood Count 15.8H, Red Blood Count 4.31L, Hemoglobin 12.7L, Hematocrit 37.5L, Mean Corpuscular Volume 87, Mean Corpuscular Hemoglobin 29.4, Mean Corpuscular Hemoglobin Concent 33.8, Red Cell Distribution Width 11.4L, Platelet Count 110L, Mean Platelet Volume 8.0, Neutrophils (%) (Auto) 89.1H, Lymphocytes (%) (Auto) 7.8L, Monocytes (%) (Auto) 2.6, Eosinophils (%) (Auto) 0.0, Basophils (%) (Auto) 0.5, Sodium Level 136, Potassium Level 2.6*L, Chloride Level 99, Carbon Dioxide Level 25, Anion Gap 12, Blood Urea Nitrogen 19H, Creatinine 1.6H, Estimat Glomerular Filtration Rate , Glucose Level 95, Lactic Acid Level 1.20, Calcium Level 8.2L, Total Bilirubin 1.3H, Direct Bilirubin 0.5H, Aspartate Amino Transf (AST/SGOT) 52H, Alanine Aminotransferase (ALT/SGPT) 62, Alkaline Phosphatase 58, Total Protein 6.9, Albumin 2.9L, Globulin 4.0, Albumin/Globulin Ratio 0.7L 08/27/18 03:00: Sodium Level 133L, Potassium Level 4.4#, Chloride Level 98, Carbon Dioxide Level 23, Anion Gap 12, Blood Urea Nitrogen 28H, Creatinine 2.4H, Estimat Glomerular Filtration Rate , Glucose Level 199#H, Calcium Level 7.0L, Total Bilirubin 0.8, Aspartate Amino Transf (AST/SGOT) 46H, Alanine Aminotransferase ( ALT/SGPT) 58, Alkaline Phosphatase 50, Total Protein 5.7L, Albumin 2.6L, Globulin 3.1, Albumin/Globulin Ratio 0.8L, Random Amikacin Level 18.6 08/27/18 04:00: White Blood Count 11.0H, Red Blood Count 3.95L, Hemoglobin 11.4L, Hematocrit 34.4L, Mean Corpuscular Volume 87, Mean Corpuscular Hemoglobin 29.0, Mean Corpuscular Hemoglobin Concent 33.3, Red Cell Distribution Width 11.6, Platelet Count 110L, Mean Platelet Volume 7.8, Neutrophils (%) (Auto) , Lymphocytes (%) ( Auto) , Monocytes (%) (Auto) , Eosinophils (%) (Auto) , Basophils (%) (Auto) , Neutrophils % (Manual) [Pending], Lymphocytes % (Manual) [Pending], Platelet Estimate [Pending], Platelet Morphology [Pending], Magnesium Level 1.7L, Amylase Level 183H, Lipase 63L Current Medications Medications (Trade) Dose Ordered Sig/Elli Route PRN Reason Start Time Stop Time Status Last Admin Dose Admin Acetaminophen (Tylenol) 650 mg Q4H PRN RECTAL Mild Pain (Pain Scale 1-3) 08/26/18 11:00 09/25/18 10:59 08/26/18 14:00 Albuterol/ Ipratropium (Albuterol/ Ipratropium) 3 ml Q4HRT HHN 08/25/18 11:00 08/30/18 10:59 08/27/18 07:01 Amikacin Protocol (Amikacin pharmacy to dose) 1 ea DAILY PRN MISC Per rx protocol 08/26/18 13:45 09/25/18 13:44 Amikacin Sulfate 1000 mg/Sodium Chloride 114 ml @ 114 mls/hr Q48H IV 08/28/18 15:00 09/04/18 14:59 Chlorhexidine Gluconate (Gabriela-Hex 2%) 1 applic DAILY@2000 TOPIC 08/26/18 20:00 09/25/18 19:59 08/26/18 20:12 Dextrose (Dextrose 50%) 25 ml Q30M PRN IV Hypoglycemia 08/25/18 08:30 09/21/18 23:29 Dextrose (Dextrose 50%) 50 ml Q30M PRN IV Hypoglycemia 08/25/18 08:30 09/21/18 23:29 Dopamine HCl/ Dextrose 250 ml @ 0 mls/hr Q24H IV 08/26/18 22:45 09/25/18 22:44 08/27/18 00:11 Fentanyl Citrate 1000 mcg/Sodium Chloride 100 ml @ 0 mls/hr Q24H IV 08/26/18 13:00 09/02/18 12:59 08/27/18 08:15 Guaifenesin/ Dextromethorphan (Robitussin DM Syrup) 5 ml Q6H PRN ORAL For Cough 08/25/18 08:30 09/23/18 08:29 Heparin Sodium (Porcine) (Heparin 5000 units/ml) 5,000 units EVERY 12 HOURS SUBQ 08/25/18 09:00 09/22/18 08:59 08/27/18 08:19 Hydrocortisone (Solu-CORTEF) 100 mg EVERY 8 HOURS IV 08/26/18 22:00 09/25/18 21:59 08/27/18 05:41 Insulin Aspart (NovoLOG) EVERY 6 HOURS SUBQ 08/25/18 12:00 09/22/18 00:00 08/25/18 18:33 Levothyroxine Sodium (Synthroid) 150 mcg DAILY@0630 ORAL 08/26/18 06:30 09/22/18 06:29 08/26/18 06:25 Magnesium Sulfate 100 ml @ 100 mls/hr Q1H IVPB 08/27/18 08:00 08/27/18 09:59 08/27/18 08:59 Meropenem 1 gm/ Sodium Chloride 100 ml @ 200 mls/hr Q12HR@0600,1800 IVPB 08/27/18 18:00 09/01/18 17:59 Ondansetron HCl (Zofran) 4 mg Q4H PRN IVP Nausea & Vomiting 08/25/18 09:15 09/22/18 17:03 08/27/18 06:06 Pantoprazole (Protonix) 40 mg DAILY ORAL 08/25/18 09:00 09/24/18 08:59 08/27/18 08:16 Sodium Chloride 1,000 ml @ 100 mls/hr Q10H IV 08/27/18 07:45 09/26/18 07:44 08/27/18 08:18 Vancomycin HCl (Vanco rx to dose) 1 ea DAILY PRN MISC Per rx protocol 08/25/18 09:00 09/21/18 19:44 Aj Harding MD Aug 27, 2018 09:19
--- NOTE | 2018-08-27 09:30 | NUR ---
NURSE NOTES: Seen by Dr Harding, will follow up with new orders
--- NOTE | 2018-08-27 09:42 | General Progress Note ---
Assessment/Plan Problem List: (1) Sepsis ICD Codes: A41.9 - Sepsis, unspecified organism SNOMED: 58817848 (2) Diabetes ICD Codes: E11.9 - Type 2 diabetes mellitus without complications SNOMED: 38882327 (3) Hypothyroidism ICD Codes: E03.9 - Hypothyroidism, unspecified SNOMED: 45760456 (4) Abdominal distension (gaseous) ICD Codes: R14.0 - Abdominal distension (gaseous) SNOMED: 143819157 Assessment/Plan ? ileus Vs small bowl obstruction NGT to low intermittent suction kub npo ivf fu labs Subjective ROS Limited/Unobtainable: No Allergies: Coded Allergies: No Known Allergies (Unverified , 08/22/18) Subjective vomited transferred back to the ICU Objective Last 24 Hour Vital Signs Date Time Temp Pulse Resp B/P (MAP) Pulse Ox O2 Delivery O2 Flow Rate FiO2 08/27/18 08:50 79 16 50 08/27/18 08:15 13 Mechanical Ventilator 50 08/27/18 07:14 17 Mechanical Ventilator 50 08/27/18 07:00 111/73 08/27/18 07:00 111/73 08/27/18 07:00 111/73 08/27/18 07:00 111/73 08/27/18 07:00 111/73 08/27/18 07:00 111/73 08/27/18 07:00 111/73 08/27/18 07:00 111/73 08/27/18 07:00 111/73 08/27/18 07:00 20 Mechanical Ventilator 50 08/27/18 07:00 83 14 100 Mechanical Ventilator 50 08/27/18 06:57 83 17 50 08/27/18 06:55 77 14 95 Mechanical Ventilator 50 08/27/18 06:00 119/80 08/27/18 06:00 119/80 08/27/18 06:00 119/80 08/27/18 06:00 119/80 08/27/18 06:00 119/80 08/27/18 06:00 119/80 08/27/18 06:00 119/80 08/27/18 06:00 119/80 08/27/18 06:00 119/80 08/27/18 06:00 20 Mechanical Ventilator 50 08/27/18 06:00 18 Mechanical Ventilator 50 08/27/18 06:00 18 Mechanical Ventilator 50 08/27/18 06:00 18 Mechanical Ventilator 50 08/27/18 06:00 18 Mechanical Ventilator 50 08/27/18 06:00 18 Mechanical Ventilator 50 08/27/18 06:00 18 Mechanical Ventilator 50 08/27/18 06:00 18 Mechanical Ventilator 50 08/27/18 06:00 18 Mechanical Ventilator 50 08/27/18 06:00 18 Mechanical Ventilator 50 08/27/18 05:30 95 18 126/81 (96) 96 08/27/18 05:05 84 14 50 08/27/18 05:00 82 16 115/62 (79) 97 08/27/18 05:00 115/62 08/27/18 05:00 115/62 08/27/18 05:00 115/62 08/27/18 05:00 115/62 08/27/18 05:00 115/62 08/27/18 05:00 115/62 08/27/18 05:00 115/62 08/27/18 05:00 18 Mechanical Ventilator 50 08/27/18 05:00 18 Mechanical Ventilator 50 08/27/18 05:00 18 Mechanical Ventilator 50 08/27/18 05:00 18 Mechanical Ventilator 50 08/27/18 05:00 18 Mechanical Ventilator 50 08/27/18 05:00 18 Mechanical Ventilator 50 08/27/18 05:00 18 Mechanical Ventilator 50 08/27/18 05:00 18 Mechanical Ventilator 50 08/27/18 04:30 84 13 113/67 (82) 97 08/27/18 04:00 87 14 78/49 (59) 96 08/27/18 04:00 Mechanical Ventilator 08/27/18 04:00 78/49 08/27/18 04:00 78/49 08/27/18 04:00 78/49 08/27/18 04:00 78/49 08/27/18 04:00 78/49 08/27/18 04:00 78/49 08/27/18 04:00 78/49 08/27/18 04:00 78/49 08/27/18 04:00 78/49 08/27/18 04:00 18 Mechanical Ventilator 50 08/27/18 04:00 18 Mechanical Ventilator 50 08/27/18 04:00 18 Mechanical Ventilator 50 08/27/18 04:00 18 Mechanical Ventilator 50 08/27/18 04:00 18 Mechanical Ventilator 50 08/27/18 04:00 17 Mechanical Ventilator 50 08/27/18 04:00 18 Mechanical Ventilator 50 08/27/18 04:00 18 Mechanical Ventilator 50 08/27/18 04:00 18 Mechanical Ventilator 50 08/27/18 04:00 18 Mechanical Ventilator 50 08/27/18 04:00 86 08/27/18 03:30 85 16 105/62 (76) 96 08/27/18 03:29 74 16 100 Mechanical Ventilator 50 08/27/18 03:19 86 19 97 Mechanical Ventilator 50 08/27/18 03:18 86 19 50 08/27/18 03:00 86 17 106/63 (77) 97 08/27/18 03:00 106/63 08/27/18 03:00 106/63 08/27/18 03:00 106/63 08/27/18 03:00 106/63 08/27/18 03:00 106/63 08/27/18 03:00 106/63 08/27/18 03:00 106/63 08/27/18 03:00 106/63 08/27/18 03:00 106/63 08/27/18 03:00 18 Mechanical Ventilator 50 08/27/18 02:30 90 18 100/56 (71) 95 08/27/18 02:00 127/73 08/27/18 02:00 127/73 08/27/18 02:00 127/73 08/27/18 02:00 127/73 08/27/18 02:00 127/73 08/27/18 02:00 127/73 08/27/18 02:00 127/73 08/27/18 02:00 127/73 08/27/18 02:00 127/73 08/27/18 02:00 20 Mechanical Ventilator 50 08/27/18 02:00 91 19 127/73 (91) 96 08/27/18 01:30 89 18 114/66 (82) 99 08/27/18 01:15 83 14 50 08/27/18 01:00 82 18 75/48 (57) 98 08/27/18 01:00 75/48 08/27/18 01:00 75/48 08/27/18 01:00 75/48 08/27/18 01:00 75/48 08/27/18 01:00 75/48 08/27/18 01:00 75/48 08/27/18 01:00 75/48 08/27/18 01:00 75/48 08/27/18 01:00 75/48 08/27/18 01:00 22 Mechanical Ventilator 50 08/27/18 00:30 86 24 73/44 (54) 95 08/27/18 00:11 76/47 08/27/18 00:00 98.7 89 26 72/44 (53) 94 08/27/18 00:00 15 Mechanical Ventilator 50 08/27/18 00:00 Mechanical Ventilator 08/27/18 00:00 87 08/26/18 23:30 87 17 82/50 (61) 96 08/26/18 23:05 78 18 99 Mechanical Ventilator 50 08/26/18 23:00 86 18 118/68 (85) 99 08/26/18 23:00 16 Mechanical Ventilator 16.0 50 08/26/18 22:55 86 18 50 08/26/18 22:55 86 18 98 Mechanical Ventilator 50 08/26/18 22:30 82 16 103/61 (75) 98 08/26/18 22:00 89 17 65/38 (47) 96 08/26/18 22:00 20 Mechanical Ventilator 50 08/26/18 21:45 93 17 63/38 (46) 94 08/26/18 21:30 94 17 64/38 (47) 93 08/26/18 21:15 93 17 82/49 (60) 93 08/26/18 21:05 96 17 50 08/26/18 21:00 20 Mechanical Ventilator 50 08/26/18 21:00 95 17 66/37 (47) 93 08/26/18 20:45 95 24 64/44 (51) 92 08/26/18 20:30 95 17 78/35 (49) 93 08/26/18 20:15 94 17 71/43 (52) 93 08/26/18 20:12 18 Mechanical Ventilator 50 08/26/18 20:00 92 18 91/43 (59) 92 08/26/18 20:00 Mechanical Ventilator 08/26/18 20:00 87 08/26/18 19:45 82 18 134/71 (92) 92 08/26/18 19:45 90 18 100 Mechanical Ventilator 50 08/26/18 19:35 78 24 97 Mechanical Ventilator 50 18 19:33 78 24 50 18 19:30 86 18 72/41 (51) 97 08/26/18 19:15 93 19 115/66 (82) 95 08/26/18 19:00 18 Mechanical Ventilator 08/26/18 19:00 99.8 103 19 86/43 (57) 95 08/26/18 17:54 20 Mechanical Ventilator 08/26/18 17:50 50 08/26/18 17:30 15 Mechanical Ventilator 08/26/18 17:15 18 Mechanical Ventilator 08/26/18 17:00 22 Mechanical Ventilator 08/26/18 16:55 104 20 45 08/26/18 16:00 50 08/26/18 16:00 Mechanical Ventilator Mechanical Ventilator 08/26/18 16:00 105 08/26/18 16:00 20 Mechanical Ventilator 08/26/18 16:00 103 22 90/56 (67) 100 08/26/18 15:04 109 27 97 Mechanical Ventilator 14.0 45 08/26/18 15:00 22 Mechanical Ventilator 08/26/18 14:50 104 22 45 08/26/18 14:47 106 25 100 Mechanical Ventilator 50 08/26/18 14:30 45 08/26/18 14:30 98.9 08/26/18 14:13 22 Mechanical Ventilator 50 08/26/18 14:00 50 08/26/18 14:00 105 25 85/50 (62) 100 08/26/18 13:30 98.9 08/26/18 13:00 50 08/26/18 13:00 115 28 90/55 (67) 100 08/26/18 13:00 22 Mechanical Ventilator 50 08/26/18 12:48 123 30 45 08/26/18 12:00 103 08/26/18 12:00 100 08/26/18 12:00 Mechanical Ventilator Mechanical Ventilator 08/26/18 12:00 101.5 122 29 167/90 (115) 100 08/26/18 11:40 101 24 100 08/26/18 11:30 100 08/26/18 11:00 121 28 165/93 (117) 100 08/26/18 10:59 107 39 30 Venturi Mask 14.0 55 08/26/18 10:39 110 38 91 Venturi Mask 12.0 50 12/21/18 10:00 105 38 110/64 (79) 91 Intake and Output 08/26/18 08/27/18 18:59 06:59 Intake Total 680.334 ml 592.62 ml Output Total 1450 ml 800 ml Balance -769.666 ml -207.38 ml IV Total 680.334 ml 592.62 ml Output Urine Total 1450 ml 550 ml Emesis 250 ml Laboratory Tests 08/26/18 10:47: Arterial Blood pH 7.619*H, Arterial Blood Partial Pressure CO2 25.7L, Arterial Blood Partial Pressure O2 50.7L, Arterial Blood HCO3 25.8, Arterial Blood Oxygen Saturation 89.9*L, Arterial Blood Base Excess 5.6H, Danny Test Positive 08/26/18 12:33: Arterial Blood pH 7.543H, Arterial Blood Partial Pressure CO2 32.7L, Arterial Blood Partial Pressure O2 468.3H, Arterial Blood HCO3 27.5H, Arterial Blood Oxygen Saturation 98.9, Arterial Blood Base Excess 5.4H, Danny Test Positive 08/26/18 15:30: White Blood Count 15.8H, Red Blood Count 4.31L, Hemoglobin 12.7L, Hematocrit 37.5L, Mean Corpuscular Volume 87, Mean Corpuscular Hemoglobin 29.4, Mean Corpuscular Hemoglobin Concent 33.8, Red Cell Distribution Width 11.4L, Platelet Count 110L, Mean Platelet Volume 8.0, Neutrophils (%) (Auto) 89.1H, Lymphocytes (%) (Auto) 7.8L, Monocytes (%) (Auto) 2.6, Eosinophils (%) (Auto) 0.0, Basophils (%) (Auto) 0.5, Sodium Level 136, Potassium Level 2.6*L, Chloride Level 99, Carbon Dioxide Level 25, Anion Gap 12, Blood Urea Nitrogen 19H, Creatinine 1.6H, Estimat Glomerular Filtration Rate , Glucose Level 95, Lactic Acid Level 1.20, Calcium Level 8.2L, Total Bilirubin 1.3H, Direct Bilirubin 0.5H, Aspartate Amino Transf (AST/SGOT) 52H, Alanine Aminotransferase (ALT/SGPT) 62, Alkaline Phosphatase 58, Total Protein 6.9, Albumin 2.9L, Globulin 4.0, Albumin/Globulin Ratio 0.7L 08/27/18 03:00: Sodium Level 133L, Potassium Level 4.4#, Chloride Level 98, Carbon Dioxide Level 23, Anion Gap 12, Blood Urea Nitrogen 28H, Creatinine 2.4H, Estimat Glomerular Filtration Rate , Glucose Level 199#H, Calcium Level 7.0L, Total Bilirubin 0.8, Aspartate Amino Transf (AST/SGOT) 46H, Alanine Aminotransferase ( ALT/SGPT) 58, Alkaline Phosphatase 50, Total Protein 5.7L, Albumin 2.6L, Globulin 3.1, Albumin/Globulin Ratio 0.8L, Random Amikacin Level 18.6 08/27/18 04:00: White Blood Count 11.0H, Red Blood Count 3.95L, Hemoglobin 11.4L, Hematocrit 34.4L, Mean Corpuscular Volume 87, Mean Corpuscular Hemoglobin 29.0, Mean Corpuscular Hemoglobin Concent 33.3, Red Cell Distribution Width 11.6, Platelet Count 110L, Mean Platelet Volume 7.8, Neutrophils (%) (Auto) , Lymphocytes (%) ( Auto) , Monocytes (%) (Auto) , Eosinophils (%) (Auto) , Basophils (%) (Auto) , Neutrophils % (Manual) [Pending], Lymphocytes % (Manual) [Pending], Platelet Estimate [Pending], Platelet Morphology [Pending], Magnesium Level 1.7L, Amylase Level 183H, Lipase 63L Height (Feet): 5 Height (Inches): 7.00 Weight (Pounds): 153 General Appearance: mild distress EENT: normal ENT inspection Neck: supple Cardiovascular: tachycardia Respiratory/Chest: decreased breath sounds Abdomen: hypoactive bowel sounds, distended Extremities: non-tender Nick Vera MD Aug 27, 2018 09:42
--- NOTE | 2018-08-27 09:55 | Diagnostic Imaging Report ---
EXAM: XR Chest, 1 View CLINICAL HISTORY: ABN CHST TECHNIQUE: Frontal view of the chest. COMPARISON: Chest x-rays dated 08/26/18 FINDINGS: Lungs: Unchanged bilateral perihilar interstitial and airspace opacities. Pleural space: Unremarkable. The costophrenic angles are sharp. No visible pneumothorax. Heart: Unremarkable. No cardiomegaly. Mediastinum: Unremarkable. Bones/joints: Unremarkable. Soft tissues: Surgical clips overlie the left neck soft tissues. Tubes, lines and devices: Endotracheal tube tip 2.3 cm above the hanna. NG tube extends below the diaphragm, with its tip in the region of the stomach body. EKG leads overlie the thorax. IMPRESSION: Unchanged bilateral perihilar interstitial and airspace opacities.
--- NOTE | 2018-08-27 09:58 | NUR ---
NURSE NOTES: Seen by Dr Vera, and made aware green vomitus with order to start pt on low intermittent suction.Noted and carried out
--- NOTE | 2018-08-27 10:18 | NUR ---
NURSE NOTES: Patient turned and repositioned.Kept clean and dry. Restraints release with no skin impairment.Kept on close monitoring
--- NOTE | 2018-08-27 10:29 | Diagnostic Imaging Report ---
EXAM: XR Abdomen, one view CLINICAL HISTORY: ABD PAIN TECHNIQUE: Frontal supine view of the abdomen/pelvis . COMPARISON: Abdominal x-ray dated 08/27/18. CT abdomen and pelvis dated 08/22/18. FINDINGS: Intraperitoneal space: No evidence of intraperitoneal free air. Gastrointestinal tract: Mild nonspecific gaseous distention of large and small bowel loops which otherwise remain within normal limits in diameter. No evidence of pneumatosis intestinalis. Organs: Surgical clips in the right upper abdominal quadrant suggest prior cholecystectomy. Renal shadows are obscured by overlying bowel gas. Millimeter density overlying the left upper renal pole and 3 mm density overlying the left lower renal pole. Bones/joints: Degenerative changes throughout the visualized lumbar spine. Soft tissues: Radiodense clips identified in the left pelvis. Vasculature: Subcentimeter phleboliths in the left pelvis. Tubes, lines and devices: NG tube tip in the region of the stomach body. Radiodense Sarmiento catheter in the central pelvis. IMPRESSION: 1. NG tube tip in the region of the stomach body. 2. Mild nonspecific gaseous distention of large and small bowel loops which otherwise remain within normal limits in diameter. 3. 9 mm stone in the left upper renal pole and 3 mm stone in the left lower renal pole.
--- NOTE | 2018-08-27 10:53 | General Progress Note ---
Assessment/Plan Problem List: (1) Sepsis ICD Codes: A41.9 - Sepsis, unspecified organism SNOMED: 35511082 (2) Diabetes ICD Codes: E11.9 - Type 2 diabetes mellitus without complications SNOMED: 97217538 (3) Hypothyroidism ICD Codes: E03.9 - Hypothyroidism, unspecified SNOMED: 73909050 (4) Adrenal insufficiency ICD Codes: E27.40 - Unspecified adrenocortical insufficiency SNOMED: 79488476, 029002658 Assessment/Plan continue IVHC 100 mg every 8 hours - stress dose change Levothyroxine 150 mcg tablet daily to 75 mcg IV daily continue NISS Subjective ROS Limited/Unobtainable: Yes Allergies: Coded Allergies: No Known Allergies (Unverified , 08/22/18) Subjective intubated in ICU Objective Last 24 Hour Vital Signs Date Time Temp Pulse Resp B/P (MAP) Pulse Ox O2 Delivery O2 Flow Rate FiO2 08/27/18 08:50 79 16 50 08/27/18 08:15 13 Mechanical Ventilator 50 08/27/18 07:14 17 Mechanical Ventilator 50 08/27/18 07:00 111/73 08/27/18 07:00 111/73 08/27/18 07:00 111/73 08/27/18 07:00 111/73 08/27/18 07:00 111/73 08/27/18 07:00 111/73 08/27/18 07:00 111/73 08/27/18 07:00 111/73 08/27/18 07:00 111/73 08/27/18 07:00 20 Mechanical Ventilator 50 08/27/18 07:00 83 14 100 Mechanical Ventilator 50 08/27/18 06:57 83 17 50 08/27/18 06:55 77 14 95 Mechanical Ventilator 50 08/27/18 06:00 119/80 08/27/18 06:00 119/80 08/27/18 06:00 119/80 08/27/18 06:00 119/80 08/27/18 06:00 119/80 08/27/18 06:00 119/80 08/27/18 06:00 119/80 08/27/18 06:00 119/80 08/27/18 06:00 119/80 08/27/18 06:00 20 Mechanical Ventilator 50 08/27/18 06:00 18 Mechanical Ventilator 50 08/27/18 06:00 18 Mechanical Ventilator 50 08/27/18 06:00 18 Mechanical Ventilator 50 08/27/18 06:00 18 Mechanical Ventilator 50 08/27/18 06:00 18 Mechanical Ventilator 50 08/27/18 06:00 18 Mechanical Ventilator 50 08/27/18 06:00 18 Mechanical Ventilator 50 08/27/18 06:00 18 Mechanical Ventilator 50 08/27/18 06:00 18 Mechanical Ventilator 50 08/27/18 05:30 95 18 126/81 (96) 96 08/27/18 05:05 84 14 50 08/27/18 05:00 82 16 115/62 (79) 97 08/27/18 05:00 115/62 08/27/18 05:00 115/62 08/27/18 05:00 115/62 08/27/18 05:00 115/62 08/27/18 05:00 115/62 08/27/18 05:00 115/62 08/27/18 05:00 115/62 08/27/18 05:00 18 Mechanical Ventilator 50 08/27/18 05:00 18 Mechanical Ventilator 50 08/27/18 05:00 18 Mechanical Ventilator 50 08/27/18 05:00 18 Mechanical Ventilator 50 08/27/18 05:00 18 Mechanical Ventilator 50 08/27/18 05:00 18 Mechanical Ventilator 50 08/27/18 05:00 18 Mechanical Ventilator 50 08/27/18 05:00 18 Mechanical Ventilator 50 08/27/18 04:30 84 13 113/67 (82) 97 08/27/18 04:00 87 14 78/49 (59) 96 08/27/18 04:00 Mechanical Ventilator 08/27/18 04:00 78/49 08/27/18 04:00 78/49 08/27/18 04:00 78/49 08/27/18 04:00 78/49 08/27/18 04:00 78/49 08/27/18 04:00 78/49 08/27/18 04:00 78/49 08/27/18 04:00 78/49 08/27/18 04:00 78/49 08/27/18 04:00 18 Mechanical Ventilator 50 08/27/18 04:00 18 Mechanical Ventilator 50 08/27/18 04:00 18 Mechanical Ventilator 50 12/22/18 04:00 18 Mechanical Ventilator 50 08/27/18 04:00 18 Mechanical Ventilator 50 08/27/18 04:00 17 Mechanical Ventilator 50 08/27/18 04:00 18 Mechanical Ventilator 50 08/27/18 04:00 18 Mechanical Ventilator 50 08/27/18 04:00 18 Mechanical Ventilator 50 08/27/18 04:00 18 Mechanical Ventilator 50 08/27/18 04:00 86 08/27/18 03:30 85 16 105/62 (76) 96 08/27/18 03:29 74 16 100 Mechanical Ventilator 50 08/27/18 03:19 86 19 97 Mechanical Ventilator 50 08/27/18 03:18 86 19 50 08/27/18 03:00 86 17 106/63 (77) 97 08/27/18 03:00 106/63 08/27/18 03:00 106/63 08/27/18 03:00 106/63 08/27/18 03:00 106/63 08/27/18 03:00 106/63 08/27/18 03:00 106/63 08/27/18 03:00 106/63 08/27/18 03:00 106/63 08/27/18 03:00 106/63 08/27/18 03:00 18 Mechanical Ventilator 50 08/27/18 02:30 90 18 100/56 (71) 95 08/27/18 02:00 127/73 08/27/18 02:00 127/73 08/27/18 02:00 127/73 08/27/18 02:00 127/73 08/27/18 02:00 127/73 08/27/18 02:00 127/73 08/27/18 02:00 127/73 08/27/18 02:00 127/73 08/27/18 02:00 127/73 08/27/18 02:00 20 Mechanical Ventilator 50 08/27/18 02:00 91 19 127/73 (91) 96 08/27/18 01:30 89 18 114/66 (82) 99 08/27/18 01:15 83 14 50 08/27/18 01:00 82 18 75/48 (57) 98 08/27/18 01:00 75/48 08/27/18 01:00 75/48 08/27/18 01:00 75/48 12/22/18 01:00 75/48 08/27/18 01:00 75/48 08/27/18 01:00 75/48 08/27/18 01:00 75/48 08/27/18 01:00 75/48 08/27/18 01:00 75/48 08/27/18 01:00 22 Mechanical Ventilator 50 08/27/18 00:30 86 24 73/44 (54) 95 08/27/18 00:11 76/47 08/27/18 00:00 98.7 89 26 72/44 (53) 94 08/27/18 00:00 15 Mechanical Ventilator 50 08/27/18 00:00 Mechanical Ventilator 08/27/18 00:00 87 08/26/18 23:30 87 17 82/50 (61) 96 08/26/18 23:05 78 18 99 Mechanical Ventilator 50 08/26/18 23:00 86 18 118/68 (85) 99 08/26/18 23:00 16 Mechanical Ventilator 16.0 50 08/26/18 22:55 86 18 50 08/26/18 22:55 86 18 98 Mechanical Ventilator 50 08/26/18 22:30 82 16 103/61 (75) 98 08/26/18 22:00 89 17 65/38 (47) 96 08/26/18 22:00 20 Mechanical Ventilator 50 08/26/18 21:45 93 17 63/38 (46) 94 08/26/18 21:30 94 17 64/38 (47) 93 08/26/18 21:15 93 17 82/49 (60) 93 08/26/18 21:05 96 17 50 08/26/18 21:00 20 Mechanical Ventilator 50 08/26/18 21:00 95 17 66/37 (47) 93 08/26/18 20:45 95 24 64/44 (51) 92 08/26/18 20:30 95 17 78/35 (49) 93 08/26/18 20:15 94 17 71/43 (52) 93 08/26/18 20:12 18 Mechanical Ventilator 50 08/26/18 20:00 92 18 91/43 (59) 92 08/26/18 20:00 Mechanical Ventilator 08/26/18 20:00 87 08/26/18 19:45 82 18 134/71 (92) 92 08/26/18 19:45 90 18 100 Mechanical Ventilator 50 08/26/18 19:35 78 24 97 Mechanical Ventilator 50 08/26/18 19:33 78 24 50 08/26/18 19:30 86 18 72/41 (51) 97 08/26/18 19:15 93 19 115/66 (82) 95 08/26/18 19:00 18 Mechanical Ventilator 08/26/18 19:00 99.8 103 19 86/43 (57) 95 08/26/18 17:54 20 Mechanical Ventilator 08/26/18 17:50 50 08/26/18 17:30 15 Mechanical Ventilator 08/26/18 17:15 18 Mechanical Ventilator 08/26/18 17:00 22 Mechanical Ventilator 08/26/18 16:55 104 20 45 08/26/18 16:00 50 08/26/18 16:00 Mechanical Ventilator Mechanical Ventilator 08/26/18 16:00 105 08/26/18 16:00 20 Mechanical Ventilator 08/26/18 16:00 103 22 90/56 (67) 100 08/26/18 15:04 109 27 97 Mechanical Ventilator 14.0 45 08/26/18 15:00 22 Mechanical Ventilator 08/26/18 14:50 104 22 45 08/26/18 14:47 106 25 100 Mechanical Ventilator 50 08/26/18 14:30 45 08/26/18 14:30 98.9 08/26/18 14:13 22 Mechanical Ventilator 50 08/26/18 14:00 50 08/26/18 14:00 105 25 85/50 (62) 100 08/26/18 13:30 98.9 08/26/18 13:00 50 08/26/18 13:00 115 28 90/55 (67) 100 08/26/18 13:00 22 Mechanical Ventilator 50 08/26/18 12:48 123 30 45 08/26/18 12:00 103 08/26/18 12:00 100 08/26/18 12:00 Mechanical Ventilator Mechanical Ventilator 08/26/18 12:00 101.5 122 29 167/90 (115) 100 08/26/18 11:40 101 24 100 08/26/18 11:30 100 08/26/18 11:00 121 28 165/93 (117) 100 08/26/18 10:59 107 39 30 Venturi Mask 14.0 55 Intake and Output 08/26/18 08/27/18 19:00 07:00 Intake Total 590.334 ml 592.89 ml Output Total 1350 ml 750 ml Balance -759.666 ml -157.11 ml IV Total 590.334 ml 592.89 ml Output Urine Total 1350 ml 500 ml Emesis 250 ml Laboratory Tests 08/26/18 12:33: Arterial Blood pH 7.543H, Arterial Blood Partial Pressure CO2 32.7L, Arterial Blood Partial Pressure O2 468.3H, Arterial Blood HCO3 27.5H, Arterial Blood Oxygen Saturation 98.9, Arterial Blood Base Excess 5.4H, Danny Test Positive 08/26/18 15:30: White Blood Count 15.8H, Red Blood Count 4.31L, Hemoglobin 12.7L, Hematocrit 37.5L, Mean Corpuscular Volume 87, Mean Corpuscular Hemoglobin 29.4, Mean Corpuscular Hemoglobin Concent 33.8, Red Cell Distribution Width 11.4L, Platelet Count 110L, Mean Platelet Volume 8.0, Neutrophils (%) (Auto) 89.1H, Lymphocytes (%) (Auto) 7.8L, Monocytes (%) (Auto) 2.6, Eosinophils (%) (Auto) 0.0, Basophils (%) (Auto) 0.5, Sodium Level 136, Potassium Level 2.6*L, Chloride Level 99, Carbon Dioxide Level 25, Anion Gap 12, Blood Urea Nitrogen 19H, Creatinine 1.6H, Estimat Glomerular Filtration Rate , Glucose Level 95, Lactic Acid Level 1.20, Calcium Level 8.2L, Total Bilirubin 1.3H, Direct Bilirubin 0.5H, Aspartate Amino Transf (AST/SGOT) 52H, Alanine Aminotransferase (ALT/SGPT) 62, Alkaline Phosphatase 58, Total Protein 6.9, Albumin 2.9L, Globulin 4.0, Albumin/Globulin Ratio 0.7L 08/27/18 03:00: Sodium Level 133L, Potassium Level 4.4#, Chloride Level 98, Carbon Dioxide Level 23, Anion Gap 12, Blood Urea Nitrogen 28H, Creatinine 2.4H, Estimat Glomerular Filtration Rate , Glucose Level 199#H, Calcium Level 7.0L, Total Bilirubin 0.8, Aspartate Amino Transf (AST/SGOT) 46H, Alanine Aminotransferase ( ALT/SGPT) 58, Alkaline Phosphatase 50, Total Protein 5.7L, Albumin 2.6L, Globulin 3.1, Albumin/Globulin Ratio 0.8L, Random Amikacin Level 18.6 08/27/18 04:00: White Blood Count 11.0H, Red Blood Count 3.95L, Hemoglobin 11.4L, Hematocrit 34.4L, Mean Corpuscular Volume 87, Mean Corpuscular Hemoglobin 29.0, Mean Corpuscular Hemoglobin Concent 33.3, Red Cell Distribution Width 11.6, Platelet Count 110L, Mean Platelet Volume 7.8, Neutrophils (%) (Auto) , Lymphocytes (%) ( Auto) , Monocytes (%) (Auto) , Eosinophils (%) (Auto) , Basophils (%) (Auto) , Differential Total Cells Counted 100, Neutrophils % (Manual) 80H, Lymphocytes % (Manual) 5L, Monocytes % (Manual) 1, Eosinophils % (Manual) 0, Basophils % ( Manual) 0, Band Neutrophils 14H, Platelet Estimate DecreasedL, Platelet Morphology Normal, Red Blood Cell Morphology Normal, Magnesium Level 1.7L, Amylase Level 183H, Lipase 63L Height (Feet): 5 Height (Inches): 7.00 Weight (Pounds): 153 General Appearance: moderate distress EENT: other - ETT / NGT Neck: normal alignment Cardiovascular: tachycardia Respiratory/Chest: decreased breath sounds Abdomen: hypoactive bowel sounds Pelvis: normal external exam Objective Current Medications Medications (Trade) Dose Ordered Sig/Elli Route PRN Reason Start Time Stop Time Status Last Admin Dose Admin Acetaminophen (Tylenol) 650 mg Q4H PRN RECTAL Mild Pain (Pain Scale 1-3) 08/26/18 11:00 09/25/18 10:59 08/26/18 14:00 Albuterol/ Ipratropium (Albuterol/ Ipratropium) 3 ml Q4HRT HHN 08/25/18 11:00 08/30/18 10:59 08/27/18 07:01 Amikacin Protocol (Amikacin pharmacy to dose) 1 ea DAILY PRN MISC Per rx protocol 08/26/18 13:45 09/25/18 13:44 Amikacin Sulfate 1000 mg/Sodium Chloride 114 ml @ 114 mls/hr Q48H IV 08/28/18 15:00 09/04/18 14:59 Chlorhexidine Gluconate (Gabriela-Hex 2%) 1 applic DAILY@1999 TOPIC 08/26/18 20:00 09/25/18 19:59 08/26/18 20:12 Dextrose (Dextrose 50%) 25 ml Q30M PRN IV Hypoglycemia 08/25/18 08:30 09/21/18 23:29 Dextrose (Dextrose 50%) 50 ml Q30M PRN IV Hypoglycemia 08/25/18 08:30 09/21/18 23:29 Dopamine HCl/ Dextrose 250 ml @ 0 mls/hr Q24H IV 08/26/18 22:45 09/25/18 22:44 08/27/18 00:11 Fentanyl Citrate 1000 mcg/Sodium Chloride 100 ml @ 0 mls/hr Q24H IV 08/26/18 13:00 09/02/18 12:59 08/27/18 08:15 Guaifenesin/ Dextromethorphan (Robitussin DM Syrup) 5 ml Q6H PRN ORAL For Cough 08/25/18 08:30 09/23/18 08:29 Heparin Sodium (Porcine) (Heparin 5000 units/ml) 5,000 units EVERY 12 HOURS SUBQ 08/25/18 09:00 09/22/18 08:59 08/27/18 08:19 Hydrocortisone (Solu-CORTEF) 100 mg EVERY 8 HOURS IV 08/26/18 22:00 09/25/18 21:59 08/27/18 05:41 Insulin Aspart (NovoLOG) EVERY 6 HOURS SUBQ 08/25/18 12:00 09/22/18 00:00 08/25/18 18:33 Levothyroxine Sodium (Synthroid) 150 mcg DAILY@0630 ORAL 08/26/18 06:30 09/22/18 06:29 08/26/18 06:25 Meropenem 1 gm/ Sodium Chloride 100 ml @ 200 mls/hr Q12HR@0600,1800 IVPB 08/27/18 18:00 09/01/18 17:59 Ondansetron HCl (Zofran) 4 mg Q4H PRN IVP Nausea & Vomiting 08/25/18 09:15 09/22/18 17:03 08/27/18 06:06 Pantoprazole (Protonix) 40 mg DAILY ORAL 08/25/18 09:00 09/24/18 08:59 08/27/18 08:16 Sodium Chloride 1,000 ml @ 100 mls/hr Q10H IV 08/27/18 07:45 09/26/18 07:44 08/27/18 08:18 Vancomycin HCl (Vanco rx to dose) 1 ea DAILY PRN MISC Per rx protocol 08/25/18 09:00 09/21/18 19:44 Stanford Baca MD Aug 27, 2018 10:53
--- NOTE | 2018-08-27 11:39 | NUR ---
NURSE NOTES: Dr Fortune called to DC current Abx and change to Zyvox. Spoke to Jose in Pharm regarding Fentanyl drip. Will defer to pharm.
--- NOTE | 2018-08-27 12:08 | NUR ---
NURSE NOTES: Family at bedside, mouth care done, turned and repositioned.Kept clean dry and comfortable
[2018-08-27 12:50] LABS: APPEARANCE,URINE CLEAR; BILIRUBIN, URINE NEGATIVE (NEGATIVE); COLOR,URINE PALE YELLOW; GLUCOSE, URINE (UA) 2+ (NEGATIVE); KETONES,URINE 2+ (NEGATIVE); LEUKOCYTE ESTERASE ,URINE NEGATIVE (NEGATIVE); NITRITE,URINE NEGATIVE (NEGATIVE); PH,URINE 6 (4.5-8.0); PROTEIN,URINE 3+ (NEGATIVE); UROBILINOGEN,URINE NORMAL MG/DL (0.0-1.0)
--- NOTE | 2018-08-27 13:40 | NUR ---
NURSE NOTES: 24 hrs urine collection started at 1340
--- NOTE | 2018-08-27 14:02 | NUR ---
NURSE NOTES: Pt turned and repositioned.Mouth care done, remains on intermittent low suction.HOB elevated to prevent aspiration.Kept clean and dry.
--- NOTE | 2018-08-27 16:04 | NUR ---
NURSE NOTES: Adls done, kept clean, dry and comfortable.
[2018-08-27] MEDS ORDERED: Etomidate 40mg/20ml Inj IV ONE (17:02)
[2018-08-27] MEDS ORDERED: Succinylcholine 20mg/ml 10ml vial ONE (17:02)
--- NOTE | 2018-08-27 18:10 | NUR ---
NURSE NOTES: ADLs done, no more green emesis, remains on low intermittent suction.HOB elevated to prevent aspiration.Family at the bedside.Kept on close monitoring
--- NOTE | 2018-08-27 19:15 | NUR ---
NURSE NOTES: Received pt, awake and able to follow simple commands and express needs through writing. ETT7.5/23cm at [facility]. AC 12, TV 500, FIO2 50%, PEEP 5, SPO2 93%, RR 18. NGT in left nare on intermittent low suction, small amount to green emesis draining. Fentanyl gtt and Dopamine gtt running. Bilateral soft wrist restraints in place, skin intact and warm to touch. VSS. Afebrile. Checked placement by auscultation. ARDHA PICC dressing asymptomatic and running TKO. RFA and LFA IV asymptomatic and patent. NPO status maintained. Abdomen is slightly distended but soft. FC draining yellow urine to gravity, 24 urine collection chamber at bedside. Family is at bedside, updated plan of care. No s/sx of acute distress noted. Will continue plan of care.
--- NOTE | 2018-08-27 19:38 | NUR ---
HAND-OFF: Report given to Adrienne.
[2018-08-27] MEDS: Dyna-Hex 2% Top Sol 2oz TOPIC SCH (20:08)
[2018-08-27] MEDS ORDERED: Albuterol/Ipratropium 3ml neb HHN PRN (21:30)
[2018-08-27] MEDS: Albuterol/Ipratropium 3ml neb HHN PRN (21:33)
--- NOTE | 2018-08-27 21:45 | Consultation ---
DATE OF CONSULTATION: 08/27/2018 CONSULTING PHYSICIAN: Cesar Nunez M.D. REFERRING PHYSICIAN: Nathaniel Bonilla M.D. REASON FOR CONSULTATION: Acute kidney injury. HISTORY OF PRESENT ILLNESS: The patient presented on 08/22/2018 with shock and was given acute treatment and hydrated and stabilized. He has a history of metastatic melanoma with lesions on the scalp and the lungs, but he has been in remission and off therapy for about six months. He had hospitalization at [facility] for cholecystitis and sepsis since May 2018 and had a prolonged hospitalization. He subsequently recovered from the above. There is a history of diabetes and hypertension. ALLERGIES: None known. MEDICATIONS: Prior to admission medications include Keflex, Benadryl, hydrocortisone, losartan, metformin, and Bactrim. Current medications in the hospital include amikacin, dopamine, fentanyl, meropenem, vancomycin, Tylenol, chlorhexidine, DuoNeb inhalation, hydrocortisone, levothyroxine, lidocaine, ondansetron, and Protonix. He also received intravenous contrast for a CT scan on admission. PAST SURGICAL HISTORY: Prior surgeries include cholecystectomy and three hernia surgeries. HABITS: He is a nondrinker and nonsmoker. No use of illicit drugs. SYSTEM REVIEW: HEAD, EYES, EARS, NOSE, THROAT: He has had some wax in the ear and decreased hearing. Vision is good. ENDOCRINE: History of adrenal insufficiency and diabetes and hypothyroidism. PULMONARY: No history of chronic shortness of breath, asthma, or TB. He has been a nonsmoker. CARDIAC: No prior history of IL, CHF, angina. GI: No history of GI bleeding or ulcers. GENITOURINARY: No history of urinary retention or prostate problems. NEUROLOGIC: No history of CVA or seizures. MUSCULOSKELETAL: No history of chronic joint pain or use of nonsteroidal anti-inflammatory agents. PHYSICAL EXAMINATION: GENERAL: The patient is alert, on a ventilator, in no acute distress. VITAL SIGNS: His blood pressures are 111/73, pulse 79, respirations 15, and O2 saturation 99 on 50%. HEAD EYES, EARS, NOSE, AND THROAT: Sclerae are nonicteric. Ocular motions intact in all directions. It is hard to see oral mucosa as he is intubated. NECK: No adenopathy. LUNGS: Clear. HEART: Regular rhythm with a 2/6 systolic ejection murmur. ABDOMEN: Soft without organomegaly or masses. EXTREMITIES: No edema, cyanosis, or clubbing. LABORATORY AND DIAGNOSTIC DATA: Pertinent labs, chest x-ray shows bilateral perihilar infiltrates consistent with CHF. Sodium 133, potassium 4.4, chloride 98, CO2 23, BUN 28, creatinine 2.4, glucose 199, calcium is 7, magnesium 1.7. He did have an elevated CPK on admission, which has not been reassessed. His albumin is 3.3. IMPRESSION: 1. Acute kidney injury, admitting creatinine is 1.2, etiology could be sepsis or septic shock, hypotension, hypovolemia initially, possible nephrotoxicity of medications, possible nephrotoxicity of contrast use for a CT, possibly septic secondary to rhabdomyolysis. 2. Acute respiratory failure, hypoxemia. 3. Acute congestive heart failure with ejection fraction of 35%. 4. Adrenal insufficiency. 5. History of metastatic melanoma. 6. Diabetes. PLAN: I would continue diuresis at this time. He does not know his renal function has worsened. He is nonoliguric. The patient should have nephrotoxic medications avoided if at all possible. I will discuss the amikacin all with the Infectious Disease communications consultant. The patient also will have a CPK repeated to see if the rhabdomyolysis is really significant in this case. The details of his problem discussed in great detail with the family at the bedside. Thank you so much for allowing me to participate in the care of this patient. Cesar Nunez M.D. DR: EKATERINA JOB#: [id number] CC:
--- NOTE | 2018-08-27 22:03 | NUR ---
NURSE NOTES: Patient noted to be increasingly awake and agitated. Titrated Fentanyl gtt to reach RASS score -2. Received orders from Dr. Harding for Ativan 1mg q6hrs PRN.
[2018-08-27] MEDS: LORazepam Inj 2mg/ml 1ml IV PRN (22:43)
--- NOTE | 2018-08-27 23:15 | NUR ---
NURSE NOTES: Patient reached RASS score of -2, VSS. Continue dopamine gtt, BP 93/55.Pt kept clean and dry. Repositioned and tolerated well. FC draining well. Reinforced patient family education regarding pt's need for continuous rest.
--- NOTE | 2018-08-27 23:57 | General Surgery Progress Note ---
General Surgery-Progress Note Subjective Additional Comments late entry for patient seen earlier. improved today. awake, alert, writing messages on paper. wants ET tube out. no n/v/f/c. ng tube output minimal Objective Last 24 Hour Vital Signs Date Time Temp Pulse Resp B/P (MAP) Pulse Ox O2 Delivery O2 Flow Rate FiO2 08/27/18 23:12 83 15 99 Mechanical Ventilator 50 08/27/18 23:02 93 12 50 08/27/18 23:02 94 13 100 Mechanical Ventilator 50 08/27/18 23:00 18 Mechanical Ventilator 50 08/27/18 22:00 18 Mechanical Ventilator 50 08/27/18 21:37 50 08/27/18 21:35 95 16 100 Mechanical Ventilator 50.0 08/27/18 21:05 94 17 50 08/27/18 21:00 18 Mechanical Ventilator 50 08/27/18 20:00 Mechanical Ventilator 08/27/18 20:00 17 Mechanical Ventilator 50 08/27/18 20:00 88 08/27/18 19:10 99.0 08/27/18 19:00 80 15 110/67 (81) 97 08/27/18 19:00 80 13 97 Mechanical Ventilator 50 08/27/18 18:50 85 15 95 Mechanical Ventilator 50 08/27/18 18:44 87 17 50 08/27/18 18:40 17 Mechanical Ventilator 50 08/27/18 18:00 115/88 08/27/18 18:00 16 Mechanical Ventilator 50 08/27/18 18:00 81 15 115/68 (84) 95 08/27/18 17:13 85 15 50 08/27/18 17:00 105/64 08/27/18 17:00 14 Mechanical Ventilator 50 08/27/18 17:00 99.0 85 12 105/64 (78) 98 08/27/18 16:00 50 08/27/18 16:00 90 16 109/71 (84) 97 08/27/18 16:00 Mechanical Ventilator 08/27/18 16:00 97 08/27/18 16:00 104/66 08/27/18 16:00 15 Mechanical Ventilator 50 08/27/18 15:30 89 15 99/65 (76) 97 08/27/18 15:00 75 15 143/71 (95) 100 08/27/18 15:00 143/71 08/27/18 15:00 14 Mechanical Ventilator 50 08/27/18 14:38 78 14 100 Mechanical Ventilator 50 08/27/18 14:37 75 16 50 08/27/18 14:32 75 13 100 Mechanical Ventilator 50 08/27/18 14:30 75 12 100/55 (70) 100 08/27/18 14:00 84/54 08/27/18 14:00 15 Mechanical Ventilator 50 08/27/18 14:00 82 12 84/54 (64) 97 08/27/18 13:30 82 12 88/53 (65) 96 08/27/18 13:00 111/63 08/27/18 13:00 15 Mechanical Ventilator 50 08/27/18 13:00 82 15 111/63 (79) 96 08/27/18 12:52 82 17 50 08/27/18 12:30 83 16 104/62 (76) 96 08/27/18 12:00 Mechanical Ventilator 08/27/18 12:00 84 08/27/18 12:00 83 16 109/64 (79) 97 08/27/18 12:00 50 08/27/18 12:00 109/64 08/27/18 12:00 16 Mechanical Ventilator 50 08/27/18 11:30 84 16 107/69 (82) 97 08/27/18 11:00 81 18 125/80 (95) 97 08/27/18 10:53 79 15 99 Mechanical Ventilator 50 08/27/18 10:49 81 17 50 08/27/18 10:45 82 14 100 Mechanical Ventilator 50 08/27/18 10:30 80 14 107/81 (90) 98 08/27/18 10:00 79 18 117/70 (86) 97 08/27/18 09:30 79 17 125/80 (95) 98 08/27/18 09:00 81 18 114/73 (87) 99 08/27/18 08:50 79 16 50 08/27/18 08:30 78 16 115/71 (86) 99 08/27/18 08:15 13 Mechanical Ventilator 50 08/27/18 08:00 99.8 84 18 90/60 (70) 97 08/27/18 08:00 Mechanical Ventilator 08/27/18 08:00 86 08/27/18 08:00 50 08/27/18 07:14 17 Mechanical Ventilator 50 08/27/18 07:00 111/73 08/27/18 07:00 111/73 08/27/18 07:00 111/73 08/27/18 07:00 111/73 08/27/18 07:00 111/73 08/27/18 07:00 111/73 08/27/18 07:00 111/73 08/27/18 07:00 111/73 08/27/18 07:00 111/73 08/27/18 07:00 20 Mechanical Ventilator 50 08/27/18 07:00 83 14 100 Mechanical Ventilator 50 08/27/18 06:57 83 17 50 08/27/18 06:55 77 14 95 Mechanical Ventilator 50 08/27/18 06:00 119/80 08/27/18 06:00 119/80 08/27/18 06:00 119/80 08/27/18 06:00 119/80 08/27/18 06:00 119/80 08/27/18 06:00 119/80 08/27/18 06:00 119/80 08/27/18 06:00 119/80 08/27/18 06:00 119/80 08/27/18 06:00 20 Mechanical Ventilator 50 08/27/18 06:00 18 Mechanical Ventilator 50 08/27/18 06:00 18 Mechanical Ventilator 50 08/27/18 06:00 18 Mechanical Ventilator 50 08/27/18 06:00 18 Mechanical Ventilator 50 08/27/18 06:00 18 Mechanical Ventilator 50 08/27/18 06:00 18 Mechanical Ventilator 50 08/27/18 06:00 18 Mechanical Ventilator 50 08/27/18 06:00 18 Mechanical Ventilator 50 08/27/18 06:00 18 Mechanical Ventilator 50 08/27/18 05:30 95 18 126/81 (96) 96 08/27/18 05:05 84 14 50 08/27/18 05:00 82 16 115/62 (79) 97 08/27/18 05:00 115/62 08/27/18 05:00 115/62 08/27/18 05:00 115/62 08/27/18 05:00 115/62 08/27/18 05:00 115/62 08/27/18 05:00 115/62 08/27/18 05:00 115/62 08/27/18 05:00 18 Mechanical Ventilator 50 08/27/18 05:00 18 Mechanical Ventilator 50 08/27/18 05:00 18 Mechanical Ventilator 50 08/27/18 05:00 18 Mechanical Ventilator 50 08/27/18 05:00 18 Mechanical Ventilator 50 08/27/18 05:00 18 Mechanical Ventilator 50 08/27/18 05:00 18 Mechanical Ventilator 50 08/27/18 05:00 18 Mechanical Ventilator 50 08/27/18 04:30 84 13 113/67 (82) 97 08/27/18 04:00 87 14 78/49 (59) 96 08/27/18 04:00 Mechanical Ventilator 08/27/18 04:00 78/49 08/27/18 04:00 78/49 08/27/18 04:00 78/49 08/27/18 04:00 78/49 08/27/18 04:00 78/49 08/27/18 04:00 78/49 08/27/18 04:00 78/49 08/27/18 04:00 78/49 08/27/18 04:00 78/49 08/27/18 04:00 18 Mechanical Ventilator 50 08/27/18 04:00 18 Mechanical Ventilator 50 08/27/18 04:00 18 Mechanical Ventilator 50 08/27/18 04:00 18 Mechanical Ventilator 50 08/27/18 04:00 18 Mechanical Ventilator 50 08/27/18 04:00 17 Mechanical Ventilator 50 08/27/18 04:00 18 Mechanical Ventilator 50 08/27/18 04:00 18 Mechanical Ventilator 50 08/27/18 04:00 18 Mechanical Ventilator 50 08/27/18 04:00 18 Mechanical Ventilator 50 08/27/18 04:00 86 08/27/18 03:30 85 16 105/62 (76) 96 08/27/18 03:29 74 16 100 Mechanical Ventilator 50 08/27/18 03:19 86 19 97 Mechanical Ventilator 50 08/27/18 03:18 86 19 50 08/27/18 03:00 86 17 106/63 (77) 97 08/27/18 03:00 106/63 08/27/18 03:00 106/63 08/27/18 03:00 106/63 08/27/18 03:00 106/63 08/27/18 03:00 106/63 08/27/18 03:00 106/63 08/27/18 03:00 106/63 08/27/18 03:00 106/63 08/27/18 03:00 106/63 08/27/18 03:00 18 Mechanical Ventilator 50 08/27/18 02:30 90 18 100/56 (71) 95 08/27/18 02:00 127/73 08/27/18 02:00 127/73 08/27/18 02:00 127/73 08/27/18 02:00 127/73 08/27/18 02:00 127/73 08/27/18 02:00 127/73 08/27/18 02:00 127/73 08/27/18 02:00 127/73 08/27/18 02:00 127/73 08/27/18 02:00 20 Mechanical Ventilator 50 08/27/18 02:00 91 19 127/73 (91) 96 08/27/18 01:30 89 18 114/66 (82) 99 08/27/18 01:15 83 14 50 08/27/18 01:00 82 18 75/48 (57) 98 08/27/18 01:00 75/48 08/27/18 01:00 75/48 08/27/18 01:00 75/48 08/27/18 01:00 75/48 08/27/18 01:00 75/48 08/27/18 01:00 75/48 08/27/18 01:00 75/48 08/27/18 01:00 75/48 08/27/18 01:00 75/48 08/27/18 01:00 22 Mechanical Ventilator 50 08/27/18 00:30 86 24 73/44 (54) 95 08/27/18 00:11 76/47 08/27/18 00:00 98.7 89 26 72/44 (53) 94 08/27/18 00:00 15 Mechanical Ventilator 50 08/27/18 00:00 Mechanical Ventilator 08/27/18 00:00 87 I&O Intake and Output 08/26/18 08/27/18 19:00 07:00 Intake Total 590.334 ml 592.89 ml Output Total 1350 ml 800 ml Balance -759.666 ml -207.11 ml IV Total 590.334 ml 592.89 ml Output Urine Total 1350 ml 550 ml Emesis 250 ml Cardiovascular: RSR Respiratory: clear Abdomen: soft, non-tender Extremities: no cyanosis Laboratory Tests Test 08/27/18 03:00 08/27/18 04:00 08/27/18 12:32 08/27/18 21:15 Sodium Level 133 MMOL/L (136-145) L Potassium Level 4.4 MMOL/L (3.5-5.1) # Chloride Level 98 MMOL/L (98-107) Carbon Dioxide Level 23 MMOL/L (21-32) Anion Gap 12 mmol/L (5-15) Blood Urea Nitrogen 28 mg/dL (7-18) H Creatinine 2.4 MG/DL (0.55-1.30) H 2.3 MG/DL (0.55-1.30) H Estimat Glomerular Filtration Rate mL/min (>60) mL/min (>60) Glucose Level 199 MG/DL (74-106) #H Calcium Level 7.0 MG/DL (8.5-10.1) L Total Bilirubin 0.8 MG/DL (0.2-1.0) Aspartate Amino Transf (AST/SGOT) 46 U/L (15-37) H Alanine Aminotransferase (ALT/SGPT) 58 U/L (12-78) Alkaline Phosphatase 50 U/L (46-116) Total Protein 5.7 G/DL (6.4-8.2) L Albumin 2.6 G/DL (3.4-5.0) L Globulin 3.1 g/dL Albumin/Globulin Ratio 0.8 (1.0-2.7) L Random Amikacin Level 18.6 ug/mL White Blood Count 11.0 K/UL (4.8-10.8) H Red Blood Count 3.95 M/UL (4.70-6.10) L Hemoglobin 11.4 G/DL (14.2-18.0) L Hematocrit 34.4 % (42.0-52.0) L Mean Corpuscular Volume 87 FL (80-99) Mean Corpuscular Hemoglobin 29.0 PG (27.0-31.0) Mean Corpuscular Hemoglobin Concent 33.3 G/DL (32.0-36.0) Red Cell Distribution Width 11.6 % (11.6-14.8) Platelet Count 110 K/UL (150-450) L Mean Platelet Volume 7.8 FL (6.5-10.1) Neutrophils (%) (Auto) % (45.0-75.0) Lymphocytes (%) (Auto) % (20.0-45.0) Monocytes (%) (Auto) % (1.0-10.0) Eosinophils (%) (Auto) % (0.0-3.0) Basophils (%) (Auto) % (0.0-2.0) Differential Total Cells Counted 100 Neutrophils % (Manual) 80 % (45-75) H Lymphocytes % (Manual) 5 % (20-45) L Monocytes % (Manual) 1 % (1-10) Eosinophils % (Manual) 0 % (0-3) Basophils % (Manual) 0 % (0-2) Band Neutrophils 14 % (0-8) H Platelet Estimate Decreased L Platelet Morphology Normal Red Blood Cell Morphology Normal Magnesium Level 1.7 MG/DL (1.8-2.4) L Amylase Level 183 U/L (25-115) H Lipase 63 U/L (73-393) L Urine Color Pale yellow Urine Appearance Clear Urine pH 6 (4.5-8.0) Urine Specific [place] 1.015 (1.005-1.035) Urine Protein 3+ (NEGATIVE) H Urine Glucose (UA) 2+ (NEGATIVE) H Urine Ketones 2+ (NEGATIVE) H Urine Blood 4+ (NEGATIVE) H Urine Nitrite Negative (NEGATIVE) Urine Bilirubin Negative (NEGATIVE) Urine Urobilinogen Normal MG/DL (0.0-1.0) Urine Leukocyte Esterase Negative (NEGATIVE) Urine RBC 2-4 /HPF (0 - 0) H Urine WBC 0 /HPF (0 - 0) Urine Squamous Epithelial Cells None /LPF (NONE/OCC) Urine Amorphous Sediment Few /LPF (NONE) H Urine Bacteria Few /HPF (NONE) Uric Acid 6.6 MG/DL (2.6-7.2) Total Creatine Kinase 563 U/L (26-308) H Creatine Kinase MB 4.0 NG/ML (0.0-3.6) H Creatine Kinase MB Relative Index 0.7 Gastric Fluid pH Pending Gastric Fluid Occult Blood Pending Plan Problems: (1) Sepsis (2) Abdominal distension (gaseous) Assessment & Plan: Abdominal distention / discomfort. no n/v/f/c. +flatus. feels bloated. exam with mild distention/non tender CT - Mildly fluid-filled small bowel loops, nonspecific, No acute process otherwise, Postcholecystectomy changes. What are probably hepatic cysts adjacent to the gallbladder fossa mimics fluid in the gallbladder fossa on the axial views, but appear to be cysts on the coronal images. Nonetheless, biloma or other pathologic collection not completely excludable Multiple nonobstructive left renal calculi Sarmiento catheter Bilateral basilar pulmonary interstitial prominence, nonspecific Scoliosis and spondylosis KUB - Nonspecific prominent but not frankly dilated gas-filled small bowel loops , decreased from previous day's exam Satisfactory position right groin central venous catheter worsening respiratory status requiring intubation more awake today. wants ET tube out abdominal exam unchanged -no acute surgical intervention planned -okay for diet as tolerated -Rx as written -repeat AM KUB ordered -will follow clinically with exams thank you for allowing me to participate in patients care David Daley Aug 27, 2018 23:57
[2018-08-28] VITALS (48 sets, daily range): BP systolic 82–146; BP diastolic 44–94
--- NOTE | 2018-08-28 01:15 | Progress Note ---
DATE: 08/27/2018 CARDIOLOGY PROGRESS NOTE SUBJECTIVE: The patient remains in the intensive care unit. Condition remains critical with guarded prognosis. The patient was hypotensive last night. He improved with the stress-dose steroids, but still required pressor support and has been tapered slightly since early this morning, specifically dopamine. The patient has had episodes of vomiting today and NG-tube was placed to suction. PHYSICAL EXAMINATION: VITAL SIGNS: Blood pressure 90/50, pulse 80, respirations 17, afebrile, and T-max 99. LUNGS: Bilateral breath sounds with rhonchi. GENERAL: Awake, alert, and agitated at times. HEART: Regular rhythm and rate. Normal S1 and S2. There is no murmur. ABDOMEN: Slightly distended, but soft. EXTREMITIES: No edema. LABORATORY DATA: White count 11, hemoglobin 11.4, and platelets 110,000. BUN 28 and creatinine 2.4. Sodium 133, bicarbonate 23, potassium 4.4, glucose 199, and magnesium 1.7. CK is 563; index is negative. Amylase 183 and lipase low at 63. Albumin 2.6. IMPRESSION: 1. Immunocompromised state. 2. Adrenal insufficiency with shock. 3. Sepsis. 4. Pneumonia. 5. Acute renal failure due to ATN. 6. Hypomagnesemia. 7. Moderate protein-calorie malnutrition. 8. Hyponatremia. 9. Possible ileus. 10. Respiratory failure with hypoxia. PLAN: 1. Hydration. 2. Taper off pressors. 3. Continue stress-dose steroids. 4. IV magnesium replacement. 5. Antimicrobials per Infectious Disease chain sales consultant. 6. NPO for now. 7. NG tube to suction. 8. Continue full ventilator support. Nathaniel Bonilla M.D. DR: SEKOU JOB#: [id number] CC:
--- NOTE | 2018-08-28 01:16 | NUR ---
NURSE NOTES: Sxn provided, patient is lightly sedated but able to arouse. Repositioned and tolerated well. CHG bath given, linen/gown changed. Pt kept clean and dry.
[2018-08-28] MEDS: Acetaminophen 650 MG SUPP RECTAL PRN ×2 (02:33→21:35)
[2018-08-28] MEDS: Albuterol/Ipratropium 3ml neb HHN SCH ×6 (03:14→23:15)
--- NOTE | 2018-08-28 03:46 | NUR ---
NURSE NOTES: Patient has Ax temp of 101.2, Tylenol supp given. Will reassess temp. Cooling measures applied. Fentanyl gtt decreased and Dopamine gtt increased due to hypotension of 82/50.
[2018-08-28] MEDS: Hydrocortisone 100mg Inj IV SCH ×3 (05:54→21:34)
[2018-08-28] MEDS: NovoLOG Insulin Flexpen SUBQ SCH ×5 (05:54→23:37)
[2018-08-28 06:20] LABS: HEMATOCRIT 34.7 % (42.0-52.0); HEMOGLOBIN 11.7 G/DL (14.2-18.0); MEAN CORPUSCULAR VOLUME 87 FL (80-99); PLATELET COUNT 140 K/UL (150-450); RED BLOOD COUNT 3.97 M/UL (4.70-6.10); WHITE BLOOD COUNT 11.9 K/UL (4.8-10.8)
--- NOTE | 2018-08-28 06:34 | NUR ---
NURSE NOTES: Ax temp 99.4, BP stable. Continue dopamine gtt, fentanyl gtt. Patient is lightly sedated with eyes closed, able to arouse with vocal stimuli and touch. Pt kept dry and clean.
[2018-08-28 06:46] LABS: AMYLASE 138 U/L (25-115)
[2018-08-28 06:50] LABS: CREATINE KINASE 353 U/L (26-308)
[2018-08-28 07:06] LABS: ALANINE AMINOTRANSFERASE 54 U/L (12-78); ALBUMIN 2.8 G/DL (3.4-5.0); ALBUMIN/GLOBULIN RATIO 0.6 (1.0-2.7); ALKALINE PHOSPHATASE 53 U/L (46-116); ANION GAP 12 mmol/L (5-15); ASPARTATE AMINO TRANSFERASE 41 U/L (15-37); BILIRUBIN,TOTAL 0.6 MG/DL (0.2-1.0); BLOOD UREA NITROGEN 52 mg/dL (7-18); CALCIUM 8.4 MG/DL (8.5-10.1); CARBON DIOXIDE 28 MMOL/L (21-32); CHLORIDE 98 MMOL/L (98-107); CREATININE 2.8 MG/DL (0.55-1.30); SODIUM 138 MMOL/L (136-145)
--- NOTE | 2018-08-28 07:12 | NUR ---
RESPIRATORY NOTE: Patient received mechanically ventilated on PB840 with current ordered vent settings. Patient is orally intubated with an ETT tube size 7.5 with 24cm at the lip and it is secured with an anchor fast. Patient presents with bilateral coarse breath sounds and symmetrical chest rise. Small amount of banks secretions were suctioned without incident. There is an ambu bag available at the bedside and the vent is connected to a red outlet. Vent alarms are functional and audible. There is no shortness of breath or respiratory distress noted at this time. Will continue to monitor patient.
--- NOTE | 2018-08-28 07:12 | NUR ---
HAND-OFF: Report given to FAY Goodman. No change in condition.
--- NOTE | 2018-08-28 07:40 | NUR ---
NURSE NOTES: Report received from Alma Rosa Jernigan RN. Patient SR on the monitor at rate on 80s. With patent and intact ETT size 7.5 at 23 cm lip level to mechanical ventilator with setting of AC 12, TV:500, FiO2:50%, PEEP:5 with oxygen saturation of 100%. Suctioning done, minimal to moderate thin secretions noted. Oral care done. With patent and intact right upper arm PICC, able to draw blood with on going Dopamine drip at 6 mcg/kg/hour with current BP:105/55 with on going Fentanyl drip currently at 50 mcg/hour with RASS score -2. Patient still NPO, with patent and intact left nare NGT at 58cm nasal tip level connected to low intermittent suction with coffee ground drainage noted. With patent and intact indwelling reyes catheter with on going 24 hour urine creatinine clearance to be completed at 1320. With reports that patient still has episode of agitation and tries to pull ETT, with noted bilateral soft wrist restraints, restraint care to be done. Repositioning done. Floated hills with pillows. Placed bed on lowest position.
--- NOTE | 2018-08-28 07:49 | Pulmonology Progress Note ---
Assessment/Plan Assessment/Plan IMPRESSION: 1. Malignant melanoma. 2. [place]'s disease. 3. Sepsis? 4. S/p intubation DISCUSSION: Continue present care CXR better; has improving FiO2 requirements Seen by renal Await CXR and ABg this AM Continue AC mode Aj Harding M.D. Subjective Interval Events: None reported. CXR and ABG pending this AM Constitutional: Reports: no symptoms HEENT: Repors: no symptoms Respiratory: Reports: no symptoms Cardiovascular: Reports: no symptoms Gastrointestinal/Abdominal: Reports: no symptoms Genitourinary: Reports: no symptoms Neurologic: Reports: no symptoms Allergies: Coded Allergies: No Known Allergies (Unverified , 08/22/18) Objective Last 24 Hour Vital Signs Date Time Temp Pulse Resp B/P (MAP) Pulse Ox O2 Delivery O2 Flow Rate FiO2 08/28/18 07:19 88 26 100 Mechanical Ventilator 50 08/28/18 07:07 89 23 50 08/28/18 07:00 90 16 107/61 (76) 100 08/28/18 06:00 90 13 99/55 (70) 100 08/28/18 05:30 93 13 95/53 (67) 98 08/28/18 05:04 91 16 50 08/28/18 05:00 92 13 105/60 (75) 100 08/28/18 05:00 93/49 08/28/18 05:00 14 Mechanical Ventilator 50 08/28/18 04:30 99.5 92 13 100/60 (73) 100 08/28/18 04:00 Mechanical Ventilator 08/28/18 04:00 92 13 105/60 (75) 100 08/28/18 04:00 120/61 08/28/18 04:00 18 Mechanical Ventilator 50 08/28/18 04:00 99 08/28/18 03:45 98 15 82/44 (57) 99 08/28/18 03:30 100.1 98 15 89/46 (60) 99 08/28/18 03:25 96 12 100 Mechanical Ventilator 50 08/28/18 03:15 97 12 50 08/28/18 03:15 101.0 98 15 83/50 (61) 100 08/28/18 03:14 97 12 100 Mechanical Ventilator 50 08/28/18 03:03 101.2 08/28/18 03:00 83/50 08/28/18 03:00 18 Mechanical Ventilator 50 08/28/18 03:00 95 14 83/50 (61) 100 08/28/18 02:30 100 15 95/56 (69) 99 08/28/18 02:03 101.2 08/28/18 02:00 98/56 08/28/18 02:00 18 Mechanical Ventilator 50 08/28/18 02:00 101 16 96/56 (69) 100 08/28/18 01:33 18 Mechanical Ventilator 50 08/28/18 01:30 101 16 98/58 (71) 97 08/28/18 01:00 101 17 102/55 (71) 97 08/28/18 01:00 102/55 08/28/18 01:00 17 Mechanical Ventilator 50 08/28/18 00:54 101 17 50 08/28/18 00:30 101 17 94/53 (67) 97 08/28/18 00:00 Mechanical Ventilator 08/28/18 00:00 98.5 98 17 92/55 (67) 100 08/28/18 00:00 92/55 08/28/18 00:00 16 Mechanical Ventilator 50 08/28/18 00:00 99 08/27/18 23:30 99 15 91/51 (64) 97 08/27/18 23:12 83 15 99 Mechanical Ventilator 50 08/27/18 23:02 93 12 50 08/27/18 23:02 94 13 100 Mechanical Ventilator 50 08/27/18 23:00 18 Mechanical Ventilator 50 08/27/18 23:00 95 13 104/59 (74) 100 18 22:30 92 16 113/64 (80) 100 08/27/18 22:00 18 Mechanical Ventilator 50 08/27/18 22:00 94 17 122/72 (89) 100 18 21:37 50 18 21:35 95 16 100 Mechanical Ventilator 50.0 08/27/18 21:30 95 16 123/63 (83) 100 08/27/18 21:05 94 17 50 18 21:00 94 15 117/67 (84) 98 08/27/18 21:00 18 Mechanical Ventilator 50 08/27/18 20:30 92 19 104/58 (73) 99 08/27/18 20:00 Mechanical Ventilator 08/27/18 20:00 97.8 87 17 126/70 (88) 96 08/27/18 20:00 17 Mechanical Ventilator 50 08/27/18 20:00 88 08/27/18 19:30 82 18 122/68 (86) 96 08/27/18 19:00 80 15 110/67 (81) 97 08/27/18 19:00 80 13 97 Mechanical Ventilator 50 08/27/18 18:50 85 15 95 Mechanical Ventilator 50 08/27/18 18:44 87 17 50 08/27/18 18:40 17 Mechanical Ventilator 50 08/27/18 18:00 115/88 08/27/18 18:00 16 Mechanical Ventilator 50 08/27/18 18:00 81 15 115/68 (84) 95 08/27/18 17:13 85 15 50 08/27/18 17:00 105/64 08/27/18 17:00 14 Mechanical Ventilator 50 08/27/18 17:00 99.0 85 12 105/64 (78) 98 08/27/18 16:00 50 08/27/18 16:00 90 16 109/71 (84) 97 08/27/18 16:00 Mechanical Ventilator 08/27/18 16:00 97 18 16:00 104/66 08/27/18 16:00 15 Mechanical Ventilator 50 08/27/18 15:30 89 15 99/65 (76) 97 08/27/18 15:00 75 15 143/71 (95) 100 08/27/18 15:00 143/71 08/27/18 15:00 14 Mechanical Ventilator 50 08/27/18 14:38 78 14 100 Mechanical Ventilator 50 08/27/18 14:37 75 16 50 08/27/18 14:32 75 13 100 Mechanical Ventilator 50 08/27/18 14:30 75 12 100/55 (70) 100 08/27/18 14:00 84/54 08/27/18 14:00 15 Mechanical Ventilator 50 08/27/18 14:00 82 12 84/54 (64) 97 08/27/18 13:30 82 12 88/53 (65) 96 08/27/18 13:00 111/63 08/27/18 13:00 15 Mechanical Ventilator 50 08/27/18 13:00 82 15 111/63 (79) 96 08/27/18 12:52 82 17 50 08/27/18 12:30 83 16 104/62 (76) 96 08/27/18 12:00 Mechanical Ventilator 08/27/18 12:00 84 08/27/18 12:00 83 16 109/64 (79) 97 08/27/18 12:00 50 08/27/18 12:00 109/64 08/27/18 12:00 16 Mechanical Ventilator 50 08/27/18 11:30 84 16 107/69 (82) 97 08/27/18 11:00 81 18 125/80 (95) 97 08/27/18 10:53 79 15 99 Mechanical Ventilator 50 08/27/18 10:49 81 17 50 08/27/18 10:45 82 14 100 Mechanical Ventilator 50 08/27/18 10:30 80 14 107/81 (90) 98 08/27/18 10:00 79 18 117/70 (86) 97 08/27/18 09:30 79 17 125/80 (95) 98 08/27/18 09:00 81 18 114/73 (87) 99 08/27/18 08:50 79 16 50 08/27/18 08:30 78 16 115/71 (86) 99 08/27/18 08:15 13 Mechanical Ventilator 50 08/27/18 08:00 99.8 84 18 90/60 (70) 97 08/27/18 08:00 Mechanical Ventilator 08/27/18 08:00 86 08/27/18 08:00 50 Intake and Output 08/27/18 08/28/18 18:59 06:59 Intake Total 1192.151 ml 224.617 ml Output Total 1415 ml 680 ml Balance -222.849 ml -455.383 ml IV Total 1192.151 ml 224.617 ml Output Urine Total 1415 ml 630 ml Emesis 50 ml General Appearance: no acute distress HEENT: normocephalic Respiratory/Chest: chest wall non-tender, decreased breath sounds Cardiovascular: normal peripheral pulses, normal rate Abdomen: normal bowel sounds Extremities: no cyanosis Microbiology Date/Time Source Procedure Growth Status 08/26/18 15:38 Blood Blood Culture - Preliminary NO GROWTH AFTER 24 HOURS Resulted 08/26/18 15:30 Blood Blood Culture - Preliminary NO GROWTH AFTER 24 HOURS Resulted 08/26/18 11:45 Sputum Gram Stain - Final Resulted 08/26/18 11:45 Sputum Sputum Culture - Preliminary NO GROWTH Resulted 08/26/18 05:00 Sputum Induced Gram Stain - Final Complete 08/26/18 05:00 Sputum Culture - Final Cyndee Albicans Complete 08/25/18 16:03 Indwelling Cath Urine Culture - Final NO GROWTH AFTER 48 HOURS Complete Laboratory Tests 08/27/18 12:32: Urine Color Pale yellow, Urine Appearance Clear, Urine pH 6, Urine Specific [place] 1.015, Urine Protein 3+H, Urine Glucose (UA) 2+H, Urine Ketones 2+H, Urine Blood 4+H, Urine Nitrite Negative, Urine Bilirubin Negative, Urine Urobilinogen Normal, Urine Leukocyte Esterase Negative, Urine RBC 2-4H, Urine WBC 0, Urine Squamous Epithelial Cells None, Urine Amorphous Sediment FewH, Urine Bacteria Few, Urine Osmolality [Pending], Urine Random Sodium 80, Creatinine 2.3H, Estimat Glomerular Filtration Rate , Uric Acid 6.6, Total Creatine Kinase 563H, Creatine Kinase MB 4.0H, Creatine Kinase MB Relative Index 0.7 08/27/18 21:15: Gastric Fluid pH [Pending], Gastric Fluid Occult Blood [Pending] 08/28/18 05:21: Creatinine 2.8H, Estimat Glomerular Filtration Rate , Uric Acid 9.7H, Total Creatine Kinase 353H, White Blood Count 11.9H, Red Blood Count 3.97L, Hemoglobin 11.7L, Hematocrit 34.7L, Mean Corpuscular Volume 87, Mean Corpuscular Hemoglobin 29.5, Mean Corpuscular Hemoglobin Concent 33.7, Red Cell Distribution Width 12.0, Platelet Count 140L, Mean Platelet Volume 7.3, Neutrophils (%) (Auto) , Lymphocytes (%) (Auto) , Monocytes (%) (Auto) , Eosinophils (%) (Auto) , Basophils (%) (Auto) , Neutrophils % (Manual) [Pending] , Lymphocytes % (Manual) [Pending], Platelet Estimate [Pending], Platelet Morphology [Pending], Sodium Level 138, Potassium Level 3.0L, Chloride Level 98 , Carbon Dioxide Level 28, Anion Gap 12, Blood Urea Nitrogen 52H, Glucose Level 128H, Calcium Level 8.4L, Total Bilirubin 0.6, Aspartate Amino Transf (AST/SGOT ) 41H, Alanine Aminotransferase (ALT/SGPT) 54, Alkaline Phosphatase 53, Total Protein 7.3, Albumin 2.8L, Globulin 4.5, Albumin/Globulin Ratio 0.6L, Amylase Level 138H, Lipase 67L, Random Vancomycin Level 28.2 Current Medications Medications (Trade) Dose Ordered Sig/Elli Route PRN Reason Start Time Stop Time Status Last Admin Dose Admin Acetaminophen (Tylenol) 650 mg Q4H PRN RECTAL Mild Pain (Pain Scale 1-3) 08/26/18 11:00 09/25/18 10:59 08/28/18 02:33 Albuterol/ Ipratropium (Albuterol/ Ipratropium) 3 ml Q4HRT HHN 08/25/18 11:00 08/30/18 10:59 08/28/18 07:18 Albuterol/ Ipratropium (Albuterol/ Ipratropium) 3 ml Q6H PRN HHN Shortness of Breath 08/27/18 21:45 09/01/18 21:29 08/27/18 21:33 Chlorhexidine Gluconate (Gabriela-Hex 2%) 1 applic DAILY@2000 TOPIC 08/26/18 20:00 09/25/18 19:59 08/27/18 20:08 Dextrose (Dextrose 50%) 25 ml Q30M PRN IV Hypoglycemia 08/25/18 08:30 09/21/18 23:29 Dextrose (Dextrose 50%) 50 ml Q30M PRN IV Hypoglycemia 08/25/18 08:30 09/21/18 23:29 Dopamine HCl/ Dextrose 250 ml @ 0 mls/hr Q24H IV 08/26/18 22:45 09/25/18 22:44 08/27/18 00:11 Fentanyl Citrate 1000 mcg/Sodium Chloride 100 ml @ 0 mls/hr Q24H IV 08/26/18 13:00 09/02/18 12:59 08/28/18 01:33 Guaifenesin/ Dextromethorphan (Robitussin DM Syrup) 5 ml Q6H PRN ORAL For Cough 08/25/18 08:30 09/23/18 08:29 Heparin Sodium (Porcine) (Heparin 5000 units/ml) 5,000 units EVERY 12 HOURS SUBQ 08/25/18 09:00 09/22/18 08:59 08/27/18 08:19 Hydrocortisone (Solu-CORTEF) 100 mg EVERY 8 HOURS IV 08/26/18 22:00 09/25/18 21:59 08/28/18 05:54 Insulin Aspart (NovoLOG) EVERY 6 HOURS SUBQ 08/25/18 12:00 09/22/18 00:00 08/25/18 18:33 Levothyroxine Sodium (Synthroid) 75 mcg DAILY IV 08/28/18 09:00 09/27/18 08:59 Lorazepam (Ativan 2mg/ml 1ml) 1 mg Q6H PRN IV For Anxiety 08/27/18 22:30 09/03/18 22:29 08/27/18 22:43 Meropenem 1 gm/ Sodium Chloride 100 ml @ 200 mls/hr Q12HR@0600,1800 IVPB 08/27/18 18:00 09/01/18 17:59 08/28/18 05:54 Ondansetron HCl (Zofran) 4 mg Q4H PRN IVP Nausea & Vomiting 08/25/18 09:15 09/22/18 17:03 08/27/18 20:40 Pantoprazole (Protonix) 40 mg DAILY ORAL 08/25/18 09:00 09/24/18 08:59 08/27/18 08:16 Potassium Chloride 100 ml @ 50 mls/hr ONCE ONCE IVPB 08/28/18 07:45 08/28/18 09:44 Vancomycin HCl (Vanco rx to dose) 1 ea DAILY PRN MISC Per rx protocol 08/27/18 12:00 09/26/18 11:59 Aj Harding MD Aug 28, 2018 07:49
[2018-08-28] MEDS: Heparin 5000 units/ml inj SUBQ SCH ×2 (08:55→20:47)
[2018-08-28] MEDS: DOPamine 400mg/250ml 250 ML IV SCH ×2 (09:27→22:45)
--- NOTE | 2018-08-28 09:27 | NUR ---
RD ASSESSMENT & RECOMMENDATIONS SEE CARE ACTIVITY FOR COMPLETE ASSESSMENT DAILY ESTIMATED NEEDS: Needs based on Critical care, ca, DM 70.5kg 22-30 kcals/kg 0801-6461 total kcals 1.2-2 g protein/kg 85-141 g total protein Fluid per MD, on lasix NUTRITION DIAGNOSIS: 1) Swallowing / chewing difficulty r/t respiratory status as evidenced by txr to ICU, now s/p intubation, w/ NGT to LIS for coffee ground emesis. CURRENT DIET: NPO ENTERAL NUTRITION RECOMMENDATIONS: As able, Glucerna 1.5 @45ml/hr x24 hrs to provide 1080ml, 1620 kcal, 89g prot, 820ml free H2O - As medically able, start Glucerna 1.5 @15ml/hr x6 hrs - Advance as tolerated 10ml every 4-6 hrs to goal - Flush per MD/ HOB over 30 degrees ADDITIONAL RECOMMENDATIONS: 1) HOT STICK MAN eval 2) Calibrated bed scale weights daily while on lasix 3) Add B-complex daily while on lasix 4) Monitor BG (h/o DM2, on steroidal meds as well) 5) TF RECS ABOVE MEDICALY ABLE 6) Consult RD if non oral feeds are indicated 7) Check lytes daily
--- NOTE | 2018-08-28 09:47 | Diagnostic Imaging Report ---
EXAM: XR Chest, 1 View CLINICAL HISTORY: ABN CHST TECHNIQUE: Frontal view of the chest. COMPARISON: Chest x-rays dated 08/27/18 FINDINGS: Lungs: Patchy perihilar opacities, which may represent pulmonary edema versus infiltrates, not significantly changed compared to the prior exam. Pleural space: Unremarkable. The costophrenic angles are sharp. No visible pneumothorax. Heart: Unremarkable. No cardiomegaly. Mediastinum: Unremarkable. Bones/joints: Unremarkable. Tubes, lines and devices: Stable positioning of the endotracheal tube and nasogastric tube. EKG leads overlie the thorax. IMPRESSION: No significant interval change in the patchy perihilar opacities, which may represent pulmonary edema versus infiltrates.
--- NOTE | 2018-08-28 09:48 | Diagnostic Imaging Report ---
EXAM: XR Abdomen, 2 Views CLINICAL HISTORY: F/U TECHNIQUE: Frontal view of the abdomen/pelvis with upright view of the abdomen. COMPARISON: Abdominal x-rays dated 08/27/18 FINDINGS: Intraperitoneal space: No evidence of intraperitoneal free air. Radiodense catheter in the central pelvis, likely a Sarmiento catheter. Gastrointestinal tract: Nonobstructive, nonspecific bowel gas pattern. No evidence of pneumatosis intestinalis. Organs: Surgical clips in the right upper abdominal quadrant suggest prior cholecystectomy. Known left renal stones are not as well identified on this exam. Bones/joints: Mild degenerative changes throughout the visualized spine. Soft tissues: Surgical clip overlies the left pelvis. Tubes, lines and devices: NG tube tip in the region of the stomach body. EKG leads overlie the upper abdomen. IMPRESSION: Nonobstructive, nonspecific bowel gas pattern.
--- NOTE | 2018-08-28 09:58 | General Progress Note ---
Assessment/Plan Problem List: (1) Sepsis ICD Codes: A41.9 - Sepsis, unspecified organism SNOMED: 86686611 (2) Diabetes ICD Codes: E11.9 - Type 2 diabetes mellitus without complications SNOMED: 72969607 (3) Hypothyroidism ICD Codes: E03.9 - Hypothyroidism, unspecified SNOMED: 82109385 (4) Abdominal distension (gaseous) ICD Codes: R14.0 - Abdominal distension (gaseous) SNOMED: 287303285 Assessment/Plan ? ileus Vs small bowl obstruction NGT to low intermittent suction kub>>> non specific npo ivf fu labs consider NGTF tomorrow if BS present Subjective ROS Limited/Unobtainable: No Allergies: Coded Allergies: No Known Allergies (Unverified , 08/22/18) Subjective vomited transferred back to the ICU Objective Last 24 Hour Vital Signs Date Time Temp Pulse Resp B/P (MAP) Pulse Ox O2 Delivery O2 Flow Rate FiO2 08/28/18 09:27 109/62 08/28/18 09:10 40 08/28/18 08:30 90 13 50 08/28/18 08:15 85 16 122/71 (88) 100 08/28/18 08:00 98.9 08/28/18 08:00 Mechanical Ventilator Mechanical Ventilator 08/28/18 08:00 85 17 130/66 (87) 100 08/28/18 07:45 84 16 134/71 (92) 100 08/28/18 07:30 83 15 124/64 (84) 100 08/28/18 07:29 89 17 100 Mechanical Ventilator 50 08/28/18 07:19 88 26 100 Mechanical Ventilator 50 08/28/18 07:07 89 23 50 08/28/18 07:00 90 16 107/61 (76) 100 08/28/18 06:00 90 13 99/55 (70) 100 08/28/18 05:30 93 13 95/53 (67) 98 08/28/18 05:04 91 16 50 08/28/18 05:00 92 13 105/60 (75) 100 08/28/18 05:00 93/49 08/28/18 05:00 14 Mechanical Ventilator 50 08/28/18 04:30 99.5 92 13 100/60 (73) 100 08/28/18 04:00 Mechanical Ventilator 08/28/18 04:00 92 13 105/60 (75) 100 08/28/18 04:00 120/61 08/28/18 04:00 18 Mechanical Ventilator 50 08/28/18 04:00 99 08/28/18 03:45 98 15 82/44 (57) 99 08/28/18 03:30 100.1 98 15 89/46 (60) 99 08/28/18 03:25 96 12 100 Mechanical Ventilator 50 08/28/18 03:15 97 12 50 08/28/18 03:15 101.0 98 15 83/50 (61) 100 08/28/18 03:14 97 12 100 Mechanical Ventilator 50 08/28/18 03:03 101.2 08/28/18 03:00 83/50 08/28/18 03:00 18 Mechanical Ventilator 50 08/28/18 03:00 95 14 83/50 (61) 100 08/28/18 02:30 100 15 95/56 (69) 99 08/28/18 02:03 101.2 08/28/18 02:00 98/56 08/28/18 02:00 18 Mechanical Ventilator 50 08/28/18 02:00 101 16 96/56 (69) 100 08/28/18 01:33 18 Mechanical Ventilator 50 08/28/18 01:30 101 16 98/58 (71) 97 08/28/18 01:00 101 17 102/55 (71) 97 08/28/18 01:00 102/55 08/28/18 01:00 17 Mechanical Ventilator 50 08/28/18 00:54 101 17 50 08/28/18 00:30 101 17 94/53 (67) 97 08/28/18 00:00 Mechanical Ventilator 08/28/18 00:00 98.5 98 17 92/55 (67) 100 08/28/18 00:00 92/55 08/28/18 00:00 16 Mechanical Ventilator 50 08/28/18 00:00 99 08/27/18 23:30 99 15 91/51 (64) 97 08/27/18 23:12 83 15 99 Mechanical Ventilator 50 08/27/18 23:02 93 12 50 08/27/18 23:02 94 13 100 Mechanical Ventilator 50 08/27/18 23:00 18 Mechanical Ventilator 50 08/27/18 23:00 95 13 104/59 (74) 100 08/27/18 22:30 92 16 113/64 (80) 100 08/27/18 22:00 18 Mechanical Ventilator 50 08/27/18 22:00 94 17 122/72 (89) 100 08/27/18 21:37 50 08/27/18 21:35 95 16 100 Mechanical Ventilator 50.0 08/27/18 21:30 95 16 123/63 (83) 100 08/27/18 21:05 94 17 50 08/27/18 21:00 94 15 117/67 (84) 98 08/27/18 21:00 18 Mechanical Ventilator 50 08/27/18 20:30 92 19 104/58 (73) 99 08/27/18 20:00 Mechanical Ventilator 08/27/18 20:00 97.8 87 17 126/70 (88) 96 08/27/18 20:00 17 Mechanical Ventilator 50 08/27/18 20:00 88 08/27/18 19:30 82 18 122/68 (86) 96 08/27/18 19:00 80 15 110/67 (81) 97 08/27/18 19:00 80 13 97 Mechanical Ventilator 50 08/27/18 18:50 85 15 95 Mechanical Ventilator 50 08/27/18 18:44 87 17 50 08/27/18 18:40 17 Mechanical Ventilator 50 08/27/18 18:00 115/88 08/27/18 18:00 16 Mechanical Ventilator 50 08/27/18 18:00 81 15 115/68 (84) 95 18 17:13 85 15 50 08/27/18 17:00 105/64 08/27/18 17:00 14 Mechanical Ventilator 50 08/27/18 17:00 99.0 85 12 105/64 (78) 98 08/27/18 16:00 50 08/27/18 16:00 90 16 109/71 (84) 97 08/27/18 16:00 Mechanical Ventilator 08/27/18 16:00 97 08/27/18 16:00 104/66 08/27/18 16:00 15 Mechanical Ventilator 50 08/27/18 15:30 89 15 99/65 (76) 97 18 15:00 75 15 143/71 (95) 100 08/27/18 15:00 143/71 08/27/18 15:00 14 Mechanical Ventilator 50 08/27/18 14:38 78 14 100 Mechanical Ventilator 50 08/27/18 14:37 75 16 50 08/27/18 14:32 75 13 100 Mechanical Ventilator 50 08/27/18 14:30 75 12 100/55 (70) 100 08/27/18 14:00 84/54 08/27/18 14:00 15 Mechanical Ventilator 50 08/27/18 14:00 82 12 84/54 (64) 97 08/27/18 13:30 82 12 88/53 (65) 96 08/27/18 13:00 111/63 08/27/18 13:00 15 Mechanical Ventilator 50 08/27/18 13:00 82 15 111/63 (79) 96 08/27/18 12:52 82 17 50 08/27/18 12:30 83 16 104/62 (76) 96 08/27/18 12:00 Mechanical Ventilator 08/27/18 12:00 84 08/27/18 12:00 83 16 109/64 (79) 97 08/27/18 12:00 50 08/27/18 12:00 109/64 08/27/18 12:00 16 Mechanical Ventilator 50 08/27/18 11:30 84 16 107/69 (82) 97 08/27/18 11:00 81 18 125/80 (95) 97 08/27/18 10:53 79 15 99 Mechanical Ventilator 50 08/27/18 10:49 81 17 50 08/27/18 10:45 82 14 100 Mechanical Ventilator 50 08/27/18 10:30 80 14 107/81 (90) 98 08/27/18 10:00 79 18 117/70 (86) 97 Intake and Output 08/27/18 08/28/18 18:59 06:59 Intake Total 1192.151 ml 224.617 ml Output Total 1415 ml 680 ml Balance -222.849 ml -455.383 ml IV Total 1192.151 ml 224.617 ml Output Urine Total 1415 ml 630 ml Emesis 50 ml Laboratory Tests 08/27/18 12:32: Urine Color Pale yellow, Urine Appearance Clear, Urine pH 6, Urine Specific [place] 1.015, Urine Protein 3+H, Urine Glucose (UA) 2+H, Urine Ketones 2+H, Urine Blood 4+H, Urine Nitrite Negative, Urine Bilirubin Negative, Urine Urobilinogen Normal, Urine Leukocyte Esterase Negative, Urine RBC 2-4H, Urine WBC 0, Urine Squamous Epithelial Cells None, Urine Amorphous Sediment FewH, Urine Bacteria Few, Urine Osmolality 335L, Urine Random Sodium 80, Creatinine 2.3H, Estimat Glomerular Filtration Rate , Uric Acid 6.6, Total Creatine Kinase 563H, Creatine Kinase MB 4.0H, Creatine Kinase MB Relative Index 0.7 08/27/18 21:15: Gastric Fluid pH [Pending], Gastric Fluid Occult Blood [Pending] 08/28/18 05:21: Creatinine 2.8H, Estimat Glomerular Filtration Rate , Uric Acid 9.7H, Total Creatine Kinase 353H, White Blood Count 11.9H, Red Blood Count 3.97L, Hemoglobin 11.7L, Hematocrit 34.7L, Mean Corpuscular Volume 87, Mean Corpuscular Hemoglobin 29.5, Mean Corpuscular Hemoglobin Concent 33.7, Red Cell Distribution Width 12.0, Platelet Count 140L, Mean Platelet Volume 7.3, Neutrophils (%) (Auto) , Lymphocytes (%) (Auto) , Monocytes (%) (Auto) , Eosinophils (%) (Auto) , Basophils (%) (Auto) , Differential Total Cells Counted 100, Neutrophils % (Manual) 88H, Lymphocytes % (Manual) 4L, Monocytes % (Manual) 8, Eosinophils % (Manual) 0, Basophils % (Manual) 0, Band Neutrophils 0 , Platelet Estimate DecreasedL, Platelet Morphology Normal, Hypochromasia 1+, Sodium Level 138, Potassium Level 3.0L, Chloride Level 98, Carbon Dioxide Level 28, Anion Gap 12, Blood Urea Nitrogen 52H, Glucose Level 128H, Calcium Level 8.4L, Total Bilirubin 0.6, Aspartate Amino Transf (AST/SGOT) 41H, Alanine Aminotransferase (ALT/SGPT) 54, Alkaline Phosphatase 53, Total Protein 7.3, Albumin 2.8L, Globulin 4.5, Albumin/Globulin Ratio 0.6L, Amylase Level 138H, Lipase 67L, Random Vancomycin Level 28.2 08/28/18 08:55: Arterial Blood pH 7.300L, Arterial Blood Partial Pressure CO2 54.3H, Arterial Blood Partial Pressure O2 113.7H, Arterial Blood HCO3 26.6H, Arterial Blood Oxygen Saturation 97.0, Arterial Blood Base Excess -0.4, Danny Test Positive Height (Feet): 5 Height (Inches): 7.00 Weight (Pounds): 152 General Appearance: lethargic EENT: normal ENT inspection Neck: supple Cardiovascular: tachycardia Respiratory/Chest: decreased breath sounds Abdomen: soft, absent bowel sounds Extremities: non-tender Nick Vera MD Aug 28, 2018 09:58
--- NOTE | 2018-08-28 10:30 | NUR ---
NURSE NOTES: Patient resting comfortably. No s/sx of distress. Denies pain. slowly titrated down Dopamine drip and was able to turn off at 1030. Daughter at bedside. SR 90s on the monitor. Bed turning done. Titrating Fentanyl drip per condition. Daughter at bedside.
--- NOTE | 2018-08-28 11:31 | General Progress Note ---
Assessment/Plan Problem List: (1) Sepsis ICD Codes: A41.9 - Sepsis, unspecified organism SNOMED: 75780961 (2) Diabetes ICD Codes: E11.9 - Type 2 diabetes mellitus without complications SNOMED: 08025275 (3) Hypothyroidism ICD Codes: E03.9 - Hypothyroidism, unspecified SNOMED: 16892997 (4) Adrenal insufficiency ICD Codes: E27.40 - Unspecified adrenocortical insufficiency SNOMED: 25229701, 130383598 (5) Abdominal distension (gaseous) ICD Codes: R14.0 - Abdominal distension (gaseous) SNOMED: 781263808 Assessment/Plan continue IVHC 100 mg every 8 hours - stress dose continue Levothyroxine 75 mcg IV daily continue NISS discussed with daughter at bedside Subjective ROS Limited/Unobtainable: Yes Allergies: Coded Allergies: No Known Allergies (Unverified , 08/22/18) Subjective intubated in ICU daughter at bedside Objective Last 24 Hour Vital Signs Date Time Temp Pulse Resp B/P (MAP) Pulse Ox O2 Delivery O2 Flow Rate FiO2 08/28/18 11:00 95 17 100 Mechanical Ventilator 50 08/28/18 10:55 95 17 40 08/28/18 10:00 85 16 122/71 (88) 100 08/28/18 09:45 99 17 103/61 (75) 100 08/28/18 09:30 95 16 109/68 (82) 100 08/28/18 09:27 109/62 08/28/18 09:15 93 15 112/63 (79) 100 08/28/18 09:10 40 08/28/18 09:05 40 08/28/18 09:00 89 16 113/63 (80) 100 08/28/18 08:45 90 16 109/62 (78) 100 08/28/18 08:30 90 16 106/56 (73) 100 08/28/18 08:30 90 13 50 08/28/18 08:15 85 16 122/71 (88) 100 08/28/18 08:00 98.9 08/28/18 08:00 50 08/28/18 08:00 Mechanical Ventilator Mechanical Ventilator 08/28/18 08:00 85 17 130/66 (87) 100 08/28/18 08:00 82 08/28/18 07:45 84 16 134/71 (92) 100 08/28/18 07:30 83 15 124/64 (84) 100 08/28/18 07:29 89 17 100 Mechanical Ventilator 50 08/28/18 07:19 88 26 100 Mechanical Ventilator 50 08/28/18 07:07 89 23 50 08/28/18 07:00 90 16 107/61 (76) 100 08/28/18 06:00 90 13 99/55 (70) 100 08/28/18 05:30 93 13 95/53 (67) 98 08/28/18 05:04 91 16 50 08/28/18 05:00 92 13 105/60 (75) 100 08/28/18 05:00 93/49 08/28/18 05:00 14 Mechanical Ventilator 50 08/28/18 04:30 99.5 92 13 100/60 (73) 100 08/28/18 04:00 Mechanical Ventilator 08/28/18 04:00 92 13 105/60 (75) 100 08/28/18 04:00 120/61 08/28/18 04:00 18 Mechanical Ventilator 50 08/28/18 04:00 99 08/28/18 03:45 98 15 82/44 (57) 99 08/28/18 03:30 100.1 98 15 89/46 (60) 99 08/28/18 03:25 96 12 100 Mechanical Ventilator 50 08/28/18 03:15 97 12 50 08/28/18 03:15 101.0 98 15 83/50 (61) 100 08/28/18 03:14 97 12 100 Mechanical Ventilator 50 08/28/18 03:03 101.2 08/28/18 03:00 83/50 08/28/18 03:00 18 Mechanical Ventilator 50 08/28/18 03:00 95 14 83/50 (61) 100 08/28/18 02:30 100 15 95/56 (69) 99 08/28/18 02:03 101.2 08/28/18 02:00 98/56 08/28/18 02:00 18 Mechanical Ventilator 50 08/28/18 02:00 101 16 96/56 (69) 100 08/28/18 01:33 18 Mechanical Ventilator 50 08/28/18 01:30 101 16 98/58 (71) 97 08/28/18 01:00 101 17 102/55 (71) 97 08/28/18 01:00 102/55 08/28/18 01:00 17 Mechanical Ventilator 50 08/28/18 00:54 101 17 50 08/28/18 00:30 101 17 94/53 (67) 97 08/28/18 00:00 Mechanical Ventilator 08/28/18 00:00 98.5 98 17 92/55 (67) 100 08/28/18 00:00 92/55 08/28/18 00:00 16 Mechanical Ventilator 50 08/28/18 00:00 99 08/27/18 23:30 99 15 91/51 (64) 97 08/27/18 23:12 83 15 99 Mechanical Ventilator 50 08/27/18 23:02 93 12 50 08/27/18 23:02 94 13 100 Mechanical Ventilator 50 08/27/18 23:00 18 Mechanical Ventilator 50 08/27/18 23:00 95 13 104/59 (74) 100 08/27/18 22:30 92 16 113/64 (80) 100 08/27/18 22:00 18 Mechanical Ventilator 50 08/27/18 22:00 94 17 122/72 (89) 100 08/27/18 21:37 50 08/27/18 21:35 95 16 100 Mechanical Ventilator 50.0 08/27/18 21:30 95 16 123/63 (83) 100 08/27/18 21:05 94 17 50 08/27/18 21:00 94 15 117/67 (84) 98 08/27/18 21:00 18 Mechanical Ventilator 50 08/27/18 20:30 92 19 104/58 (73) 99 08/27/18 20:00 Mechanical Ventilator 08/27/18 20:00 97.8 87 17 126/70 (88) 96 18 20:00 17 Mechanical Ventilator 50 08/27/18 20:00 88 08/27/18 19:30 82 18 122/68 (86) 96 08/27/18 19:00 80 15 110/67 (81) 97 08/27/18 19:00 80 13 97 Mechanical Ventilator 50 08/27/18 18:50 85 15 95 Mechanical Ventilator 50 18 18:44 87 17 50 18 18:40 17 Mechanical Ventilator 50 08/27/18 18:00 115/88 08/27/18 18:00 16 Mechanical Ventilator 50 08/27/18 18:00 81 15 115/68 (84) 95 08/27/18 17:13 85 15 50 08/27/18 17:00 105/64 08/27/18 17:00 14 Mechanical Ventilator 50 08/27/18 17:00 99.0 85 12 105/64 (78) 98 08/27/18 16:00 50 08/27/18 16:00 90 16 109/71 (84) 97 08/27/18 16:00 Mechanical Ventilator 08/27/18 16:00 97 08/27/18 16:00 104/66 08/27/18 16:00 15 Mechanical Ventilator 50 08/27/18 15:30 89 15 99/65 (76) 97 08/27/18 15:00 75 15 143/71 (95) 100 08/27/18 15:00 143/71 08/27/18 15:00 14 Mechanical Ventilator 50 08/27/18 14:38 78 14 100 Mechanical Ventilator 50 08/27/18 14:37 75 16 50 08/27/18 14:32 75 13 100 Mechanical Ventilator 50 08/27/18 14:30 75 12 100/55 (70) 100 08/27/18 14:00 84/54 08/27/18 14:00 15 Mechanical Ventilator 50 08/27/18 14:00 82 12 84/54 (64) 97 08/27/18 13:30 82 12 88/53 (65) 96 08/27/18 13:00 111/63 08/27/18 13:00 15 Mechanical Ventilator 50 08/27/18 13:00 82 15 111/63 (79) 96 08/27/18 12:52 82 17 50 08/27/18 12:30 83 16 104/62 (76) 96 08/27/18 12:00 Mechanical Ventilator 08/27/18 12:00 84 08/27/18 12:00 83 16 109/64 (79) 97 08/27/18 12:00 50 08/27/18 12:00 109/64 08/27/18 12:00 16 Mechanical Ventilator 50 08/27/18 11:30 84 16 107/69 (82) 97 Intake and Output 08/27/18 08/28/18 18:59 06:59 Intake Total 1192.151 ml 224.617 ml Output Total 1415 ml 680 ml Balance -222.849 ml -455.383 ml IV Total 1192.151 ml 224.617 ml Output Urine Total 1415 ml 630 ml Emesis 50 ml Laboratory Tests 08/27/18 12:32: Urine Color Pale yellow, Urine Appearance Clear, Urine pH 6, Urine Specific [employer] 1.015, Urine Protein 3+H, Urine Glucose (UA) 2+H, Urine Ketones 2+H, Urine Blood 4+H, Urine Nitrite Negative, Urine Bilirubin Negative, Urine Urobilinogen Normal, Urine Leukocyte Esterase Negative, Urine RBC 2-4H, Urine WBC 0, Urine Squamous Epithelial Cells None, Urine Amorphous Sediment FewH, Urine Bacteria Few, Urine Osmolality 335L, Urine Random Sodium 80, Creatinine 2.3H, Estimat Glomerular Filtration Rate , Uric Acid 6.6, Total Creatine Kinase 563H, Creatine Kinase MB 4.0H, Creatine Kinase MB Relative Index 0.7 08/27/18 21:15: Gastric Fluid pH [Pending], Gastric Fluid Occult Blood [Pending] 08/28/18 05:21: Creatinine 2.8H, Estimat Glomerular Filtration Rate , Uric Acid 9.7H, Total Creatine Kinase 353H, White Blood Count 11.9H, Red Blood Count 3.97L, Hemoglobin 11.7L, Hematocrit 34.7L, Mean Corpuscular Volume 87, Mean Corpuscular Hemoglobin 29.5, Mean Corpuscular Hemoglobin Concent 33.7, Red Cell Distribution Width 12.0, Platelet Count 140L, Mean Platelet Volume 7.3, Neutrophils (%) (Auto) , Lymphocytes (%) (Auto) , Monocytes (%) (Auto) , Eosinophils (%) (Auto) , Basophils (%) (Auto) , Differential Total Cells Counted 100, Neutrophils % (Manual) 88H, Lymphocytes % (Manual) 4L, Monocytes % (Manual) 8, Eosinophils % (Manual) 0, Basophils % (Manual) 0, Band Neutrophils 0 , Platelet Estimate DecreasedL, Platelet Morphology Normal, Hypochromasia 1+, Sodium Level 138, Potassium Level 3.0L, Chloride Level 98, Carbon Dioxide Level 28, Anion Gap 12, Blood Urea Nitrogen 52H, Glucose Level 128H, Calcium Level 8.4L, Total Bilirubin 0.6, Aspartate Amino Transf (AST/SGOT) 41H, Alanine Aminotransferase (ALT/SGPT) 54, Alkaline Phosphatase 53, Total Protein 7.3, Albumin 2.8L, Globulin 4.5, Albumin/Globulin Ratio 0.6L, Amylase Level 138H, Lipase 67L, Random Vancomycin Level 28.2 08/28/18 08:55: Arterial Blood pH 7.300L, Arterial Blood Partial Pressure CO2 54.3H, Arterial Blood Partial Pressure O2 113.7H, Arterial Blood HCO3 26.6H, Arterial Blood Oxygen Saturation 97.0, Arterial Blood Base Excess -0.4, Danny Test Positive Height (Feet): 5 Height (Inches): 7.00 Weight (Pounds): 152 General Appearance: other - intubated EENT: other - ETT Neck: normal alignment Cardiovascular: tachycardia Respiratory/Chest: decreased breath sounds Abdomen: normal bowel sounds Objective Current Medications Medications (Trade) Dose Ordered Sig/Elli Route PRN Reason Start Time Stop Time Status Last Admin Dose Admin Acetaminophen (Tylenol) 650 mg Q4H PRN RECTAL Mild Pain (Pain Scale 1-3) 08/26/18 11:00 09/25/18 10:59 08/28/18 02:33 Albuterol/ Ipratropium (Albuterol/ Ipratropium) 3 ml Q4HRT HHN 08/25/18 11:00 08/30/18 10:59 08/28/18 11:00 Albuterol/ Ipratropium (Albuterol/ Ipratropium) 3 ml Q6H PRN HHN Shortness of Breath 08/27/18 21:45 09/01/18 21:29 08/27/18 21:33 Chlorhexidine Gluconate (Gabriela-Hex 2%) 1 applic DAILY@2000 TOPIC 08/26/18 20:00 09/25/18 19:59 08/27/18 20:08 Dextrose (Dextrose 50%) 25 ml Q30M PRN IV Hypoglycemia 08/25/18 08:30 09/21/18 23:29 Dextrose (Dextrose 50%) 50 ml Q30M PRN IV Hypoglycemia 08/25/18 08:30 09/21/18 23:29 Dopamine HCl/ Dextrose 250 ml @ 0 mls/hr Q24H IV 08/26/18 22:45 09/25/18 22:44 08/28/18 09:27 Fentanyl Citrate 1000 mcg/Sodium Chloride 100 ml @ 0 mls/hr Q24H IV 08/26/18 13:00 09/02/18 12:59 08/28/18 01:33 Guaifenesin/ Dextromethorphan (Robitussin DM Syrup) 5 ml Q6H PRN ORAL For Cough 08/25/18 08:30 09/23/18 08:29 Heparin Sodium (Porcine) (Heparin 5000 units/ml) 5,000 units EVERY 12 HOURS SUBQ 08/25/18 09:00 09/22/18 08:59 08/28/18 08:55 Hydrocortisone (Solu-CORTEF) 100 mg EVERY 8 HOURS IV 08/26/18 22:00 09/25/18 21:59 08/28/18 05:54 Insulin Aspart (NovoLOG) EVERY 6 HOURS SUBQ 08/25/18 12:00 09/22/18 00:00 08/25/18 18:33 Levothyroxine Sodium (Synthroid) 75 mcg DAILY IV 08/28/18 09:00 09/27/18 08:59 08/28/18 09:37 Lorazepam (Ativan 2mg/ml 1ml) 1 mg Q6H PRN IV For Anxiety 08/27/18 22:30 09/03/18 22:29 08/27/18 22:43 Meropenem 1 gm/ Sodium Chloride 100 ml @ 200 mls/hr Q12HR@0600,1800 IVPB 08/27/18 18:00 09/01/18 17:59 08/28/18 05:54 Ondansetron HCl (Zofran) 4 mg Q4H PRN IVP Nausea & Vomiting 08/25/18 09:15 09/22/18 17:03 08/27/18 20:40 Pantoprazole (Protonix) 40 mg DAILY ORAL 08/25/18 09:00 09/24/18 08:59 08/28/18 08:51 Vancomycin HCl (Vanco rx to dose) 1 ea DAILY PRN MISC Per rx protocol 08/27/18 12:00 09/26/18 11:59 Item Value Date Time Bedside Blood Glucose 108 mg/dl 08/28/18 1127 Bedside Blood Glucose 131 mg/dl H 08/28/18 0609 Bedside Blood Glucose 118 mg/dl 08/28/18 0000 Bedside Blood Glucose 118 mg/dl 08/27/18 1800 Stanford Baca MD Aug 28, 2018 11:31
--- NOTE | 2018-08-28 12:00 | NUR ---
NURSE NOTES: Resting comfortably. No distress noted. Still off of Dopamine drip. Slowly titrating Fentanyl. Provided and reassured comfort and safety, patient has been cooperative. Daughter at bedside. Denies pain. Oral care done, repositioning done.
--- NOTE | 2018-08-28 14:00 | General Surgery Progress Note ---
General Surgery-Progress Note Subjective Additional Comments sedated on vent support. not as awake as yesterday. abg noted Objective Last 24 Hour Vital Signs Date Time Temp Pulse Resp B/P (MAP) Pulse Ox O2 Delivery O2 Flow Rate FiO2 08/28/18 13:00 97.9 105 18 146/71 (96) 100 08/28/18 12:45 105 22 40 08/28/18 12:30 105 19 141/70 (93) 100 08/28/18 12:15 104 17 146/72 (96) 100 08/28/18 12:00 104 16 137/69 (91) 100 08/28/18 11:45 99.0 103 17 132/71 (91) 100 08/28/18 11:30 99 17 112/94 (100) 100 08/28/18 11:15 96 18 121/70 (87) 100 08/28/18 11:10 100 15 96 Mechanical Ventilator 40 08/28/18 11:00 96 18 118/58 (78) 100 08/28/18 11:00 95 17 100 Mechanical Ventilator 50 08/28/18 11:00 102 14 117/59 (78) 100 08/28/18 10:55 95 17 40 08/28/18 10:45 101 17 118/58 (78) 100 08/28/18 10:30 100 17 109/59 (76) 100 08/28/18 10:15 100 15 108/61 (77) 100 08/28/18 10:00 85 16 122/71 (88) 100 08/28/18 09:45 99 17 103/61 (75) 100 08/28/18 09:30 95 16 109/68 (82) 100 08/28/18 09:27 109/62 08/28/18 09:15 93 15 112/63 (79) 100 08/28/18 09:10 40 08/28/18 09:05 40 08/28/18 09:00 89 16 113/63 (80) 100 08/28/18 08:45 90 16 109/62 (78) 100 08/28/18 08:30 90 16 106/56 (73) 100 08/28/18 08:30 90 13 50 08/28/18 08:15 85 16 122/71 (88) 100 08/28/18 08:00 98.9 08/28/18 08:00 50 08/28/18 08:00 Mechanical Ventilator Mechanical Ventilator 08/28/18 08:00 85 17 130/66 (87) 100 08/28/18 08:00 82 08/28/18 07:45 84 16 134/71 (92) 100 08/28/18 07:30 83 15 124/64 (84) 100 08/28/18 07:29 89 17 100 Mechanical Ventilator 50 08/28/18 07:19 88 26 100 Mechanical Ventilator 50 08/28/18 07:07 89 23 50 08/28/18 07:00 90 16 107/61 (76) 100 08/28/18 06:00 90 13 99/55 (70) 100 08/28/18 05:30 93 13 95/53 (67) 98 08/28/18 05:04 91 16 50 08/28/18 05:00 92 13 105/60 (75) 100 08/28/18 05:00 93/49 08/28/18 05:00 14 Mechanical Ventilator 50 08/28/18 04:30 99.5 92 13 100/60 (73) 100 08/28/18 04:00 Mechanical Ventilator 08/28/18 04:00 92 13 105/60 (75) 100 08/28/18 04:00 120/61 08/28/18 04:00 18 Mechanical Ventilator 50 08/28/18 04:00 99 08/28/18 03:45 98 15 82/44 (57) 99 08/28/18 03:30 100.1 98 15 89/46 (60) 99 08/28/18 03:25 96 12 100 Mechanical Ventilator 50 08/28/18 03:15 97 12 50 08/28/18 03:15 101.0 98 15 83/50 (61) 100 08/28/18 03:14 97 12 100 Mechanical Ventilator 50 08/28/18 03:03 101.2 08/28/18 03:00 83/50 08/28/18 03:00 18 Mechanical Ventilator 50 08/28/18 03:00 95 14 83/50 (61) 100 08/28/18 02:30 100 15 95/56 (69) 99 08/28/18 02:03 101.2 08/28/18 02:00 98/56 08/28/18 02:00 18 Mechanical Ventilator 50 08/28/18 02:00 101 16 96/56 (69) 100 08/28/18 01:33 18 Mechanical Ventilator 50 08/28/18 01:30 101 16 98/58 (71) 97 08/28/18 01:00 101 17 102/55 (71) 97 08/28/18 01:00 102/55 08/28/18 01:00 17 Mechanical Ventilator 50 08/28/18 00:54 101 17 50 08/28/18 00:30 101 17 94/53 (67) 97 08/28/18 00:00 Mechanical Ventilator 08/28/18 00:00 98.5 98 17 92/55 (67) 100 08/28/18 00:00 92/55 08/28/18 00:00 16 Mechanical Ventilator 50 08/28/18 00:00 99 08/27/18 23:30 99 15 91/51 (64) 97 08/27/18 23:12 83 15 99 Mechanical Ventilator 50 08/27/18 23:02 93 12 50 08/27/18 23:02 94 13 100 Mechanical Ventilator 50 08/27/18 23:00 18 Mechanical Ventilator 50 08/27/18 23:00 95 13 104/59 (74) 100 08/27/18 22:30 92 16 113/64 (80) 100 08/27/18 22:00 18 Mechanical Ventilator 50 08/27/18 22:00 94 17 122/72 (89) 100 08/27/18 21:37 50 08/27/18 21:35 95 16 100 Mechanical Ventilator 50.0 08/27/18 21:30 95 16 123/63 (83) 100 08/27/18 21:05 94 17 50 08/27/18 21:00 94 15 117/67 (84) 98 08/27/18 21:00 18 Mechanical Ventilator 50 08/27/18 20:30 92 19 104/58 (73) 99 08/27/18 20:00 Mechanical Ventilator 08/27/18 20:00 97.8 87 17 126/70 (88) 96 08/27/18 20:00 17 Mechanical Ventilator 50 08/27/18 20:00 88 08/27/18 19:30 82 18 122/68 (86) 96 08/27/18 19:00 80 15 110/67 (81) 97 08/27/18 19:00 80 13 97 Mechanical Ventilator 50 08/27/18 18:50 85 15 95 Mechanical Ventilator 50 08/27/18 18:44 87 17 50 08/27/18 18:40 17 Mechanical Ventilator 50 08/27/18 18:00 115/88 08/27/18 18:00 16 Mechanical Ventilator 50 08/27/18 18:00 81 15 115/68 (84) 95 08/27/18 17:13 85 15 50 08/27/18 17:00 105/64 08/27/18 17:00 14 Mechanical Ventilator 50 08/27/18 17:00 99.0 85 12 105/64 (78) 98 08/27/18 16:00 50 08/27/18 16:00 90 16 109/71 (84) 97 08/27/18 16:00 Mechanical Ventilator 08/27/18 16:00 97 08/27/18 16:00 104/66 08/27/18 16:00 15 Mechanical Ventilator 50 08/27/18 15:30 89 15 99/65 (76) 97 08/27/18 15:00 75 15 143/71 (95) 100 08/27/18 15:00 143/71 08/27/18 15:00 14 Mechanical Ventilator 50 08/27/18 14:38 78 14 100 Mechanical Ventilator 50 08/27/18 14:37 75 16 50 08/27/18 14:32 75 13 100 Mechanical Ventilator 50 08/27/18 14:30 75 12 100/55 (70) 100 08/27/18 14:00 84/54 08/27/18 14:00 15 Mechanical Ventilator 50 08/27/18 14:00 82 12 84/54 (64) 97 I&O Intake and Output 08/27/18 08/28/18 19:00 07:00 Intake Total 1189.651 ml 216.847 ml Output Total 1365 ml 780 ml Balance -175.349 ml -563.153 ml IV Total 1189.651 ml 216.847 ml Output Urine Total 1365 ml 730 ml Emesis 50 ml Drains: other Cardiovascular: RSR Respiratory: decreased breath sounds Abdomen: soft, flat, present bowel sounds Extremities: no cyanosis Laboratory Tests Test 08/28/18 05:21 08/28/18 08:55 08/28/18 11:30 White Blood Count 11.9 K/UL (4.8-10.8) H Red Blood Count 3.97 M/UL (4.70-6.10) L Hemoglobin 11.7 G/DL (14.2-18.0) L Hematocrit 34.7 % (42.0-52.0) L Mean Corpuscular Volume 87 FL (80-99) Mean Corpuscular Hemoglobin 29.5 PG (27.0-31.0) Mean Corpuscular Hemoglobin Concent 33.7 G/DL (32.0-36.0) Red Cell Distribution Width 12.0 % (11.6-14.8) Platelet Count 140 K/UL (150-450) L Mean Platelet Volume 7.3 FL (6.5-10.1) Neutrophils (%) (Auto) % (45.0-75.0) Lymphocytes (%) (Auto) % (20.0-45.0) Monocytes (%) (Auto) % (1.0-10.0) Eosinophils (%) (Auto) % (0.0-3.0) Basophils (%) (Auto) % (0.0-2.0) Differential Total Cells Counted 100 Neutrophils % (Manual) 88 % (45-75) H Lymphocytes % (Manual) 4 % (20-45) L Monocytes % (Manual) 8 % (1-10) Eosinophils % (Manual) 0 % (0-3) Basophils % (Manual) 0 % (0-2) Band Neutrophils 0 % (0-8) Platelet Estimate Decreased L Platelet Morphology Normal Hypochromasia 1+ Sodium Level 138 MMOL/L (136-145) Potassium Level 3.0 MMOL/L (3.5-5.1) L Chloride Level 98 MMOL/L (98-107) Carbon Dioxide Level 28 MMOL/L (21-32) Anion Gap 12 mmol/L (5-15) Blood Urea Nitrogen 52 mg/dL (7-18) H Creatinine 2.8 MG/DL (0.55-1.30) H Estimat Glomerular Filtration Rate mL/min (>60) Glucose Level 128 MG/DL (74-106) H Uric Acid 9.7 MG/DL (2.6-7.2) H Calcium Level 8.4 MG/DL (8.5-10.1) L Total Bilirubin 0.6 MG/DL (0.2-1.0) Aspartate Amino Transf (AST/SGOT) 41 U/L (15-37) H Alanine Aminotransferase (ALT/SGPT) 54 U/L (12-78) Alkaline Phosphatase 53 U/L (46-116) Total Creatine Kinase 353 U/L (26-308) H Total Protein 7.3 G/DL (6.4-8.2) Albumin 2.8 G/DL (3.4-5.0) L Globulin 4.5 g/dL Albumin/Globulin Ratio 0.6 (1.0-2.7) L Amylase Level 138 U/L (25-115) H Lipase 67 U/L (73-393) L Random Vancomycin Level 28.2 ug/mL Arterial Blood pH 7.300 (7.350-7.450) Arterial Blood Partial Pressure CO2 54.3 mmHg (35.0-45.0) H Arterial Blood Partial Pressure O2 113.7 mmHg (75.0-100.0) H Arterial Blood HCO3 26.6 mmol/L (22.0-26.0) H Arterial Blood Oxygen Saturation 97.0 % (95-100) Arterial Blood Base Excess -0.4 (-2-2) Danny Test Positive Gastric Fluid pH Pending Gastric Fluid Occult Blood Pending Plan Problems: (1) Sepsis (2) Abdominal distension (gaseous) Assessment & Plan: Abdominal distention / discomfort. no n/v/f/c. +flatus. feels bloated. exam with mild distention/non tender CT - Mildly fluid-filled small bowel loops, nonspecific, No acute process otherwise, Postcholecystectomy changes. What are probably hepatic cysts adjacent to the gallbladder fossa mimics fluid in the gallbladder fossa on the axial views, but appear to be cysts on the coronal images. Nonetheless, biloma or other pathologic collection not completely excludable Multiple nonobstructive left renal calculi Sarmiento catheter Bilateral basilar pulmonary interstitial prominence, nonspecific Scoliosis and spondylosis KUB - Nonspecific prominent but not frankly dilated gas-filled small bowel loops , decreased from previous day's exam Satisfactory position right groin central venous catheter worsening respiratory status requiring intubation abdominal exam unchanged KUB okay no signs of obstruction today more sedated. -no acute surgical intervention planned -Rx as written -appreciate ICU team care -wean sedation and vent as tolerated. -will follow clinically with exams thank you for allowing me to participate in patients care David Daley Aug 28, 2018 14:00
--- NOTE | 2018-08-28 14:40 | NUR ---
NURSE NOTES: Patient remained calm and comfortable. No s/sx of distress. SR-ST 100s on the monitor. Denies pain. 24 hour urine crea clearance completed and sent to lab. Slowly tatrating off of Fentanyl drip. Spoke with Dr. Harding and made aware of the wweaning of Fentanyl drip and asked if he wants repeat ABg or to try SIMV but MD ordered to wean off of Fentanyl and possible weaning tomorrow. DaughterNohemi was made aware.
[2018-08-28] MEDS ORDERED: Amikacin 1,000 MG in NS 110 ML IV SCH (15:00)
[2018-08-28 15:09] LABS: CREATININE 2.3 MG/DL (0.55-1.30)
--- NOTE | 2018-08-28 15:30 | NUR ---
NURSE NOTES: Patient remained calm and comfortable, no s/sx of distress on current ventilator setting. Was able to turn off Fentanyl drip. Denies pain. Daughter at bedside. Remained off of Dopamine.
--- NOTE | 2018-08-28 16:21 | Infectious Diseases Prog Note ---
Assessment/Plan Assessment/Plan ASSESSMENT/PLAN: 1. 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 hcap, ? aspiration, respiratory failure, on vent , ROSA likely secondary to sepsis/hypotension - meropenem and vancomycin, amikacin discontinued yesterday - f/u on cultures, sc-negative so far, blood cultures negative - steroids - monitor labs, bp, temps, chest x-ray - icu care, bp support, vent support - d/w RN - d/w family member - see multiple orders - d/w pharmacy about abx - communicated with Dr. Bonilla - d/w Dr. Nunez about abx 2. The patient has a history of adrenal insufficiency. 3. History of melanoma in remission. 4. History of biliary sepsis, status post cholecystectomy. 5. Hypothyroidism. 6. Hypertension. 7. Diabetes. 8. History of cancer, which I believe is the melanoma. 9. Past medical history noted. 10. No known drug allergies. 11. Social history is negative. 12. Family history is negative. 13. MAR was noted. 14. Case was discussed with RN. 15. Case was discussed with Dr. Bonilla. 16. Case was discussed with the patient's family. 17. The patient was seen in the emergency room 18. The patient will need ICU care. 19. Continue treatment per primary consultants. 20. Notes and records were noted. 21. Orders were entered. 22. Case was discussed with pharmacy. 23. Skin care protocol. Subjective Constitutional: Reports: fatigue, other - + fevers yesterday, less today, no pressors, no vent; Denies: fever HEENT: Reports: congestion Respiratory: Reports: shortness of breath Cardiovascular: Reports: other - off pressors Gastrointestinal/Abdominal: Denies: nausea, vomiting, diarrhea Genitourinary: Reports: other - + reyes Neurologic: Reports: weakness, other - sedated Psychiatric: Reports: other - na Skin: Denies: rash Hematologic: Denies: bleeding Musculoskeletal: Reports: other Allergies: Coded Allergies: No Known Allergies (Unverified , 08/22/18) Objective Vital Signs Last 24 Hour Vital Signs Date Time Temp Pulse Resp B/P (MAP) Pulse Ox O2 Delivery O2 Flow Rate FiO2 08/28/18 15:09 101 19 99 Mechanical Ventilator 40 08/28/18 15:00 103 19 129/65 (86) 100 08/28/18 14:59 101 19 100 Mechanical Ventilator 50 08/28/18 14:46 101 19 40 08/28/18 14:00 105 19 141/61 (87) 100 08/28/18 13:00 97.9 105 18 146/71 (96) 100 08/28/18 12:45 105 22 40 08/28/18 12:30 105 19 141/70 (93) 100 08/28/18 12:15 104 17 146/72 (96) 100 08/28/18 12:00 Mechanical Ventilator Mechanical Ventilator 08/28/18 12:00 105 08/28/18 12:00 104 16 137/69 (91) 100 08/28/18 11:45 99.0 103 17 132/71 (91) 100 08/28/18 11:30 99 17 112/94 (100) 100 08/28/18 11:15 96 18 121/70 (87) 100 08/28/18 11:10 100 15 96 Mechanical Ventilator 40 08/28/18 11:00 96 18 118/58 (78) 100 08/28/18 11:00 95 17 100 Mechanical Ventilator 50 08/28/18 11:00 102 14 117/59 (78) 100 08/28/18 10:55 95 17 40 08/28/18 10:45 101 17 118/58 (78) 100 08/28/18 10:30 100 17 109/59 (76) 100 08/28/18 10:15 100 15 108/61 (77) 100 08/28/18 10:00 85 16 122/71 (88) 100 08/28/18 09:45 99 17 103/61 (75) 100 08/28/18 09:30 95 16 109/68 (82) 100 08/28/18 09:27 109/62 08/28/18 09:15 93 15 112/63 (79) 100 08/28/18 09:10 40 08/28/18 09:05 40 08/28/18 09:00 89 16 113/63 (80) 100 08/28/18 08:45 90 16 109/62 (78) 100 08/28/18 08:30 90 16 106/56 (73) 100 08/28/18 08:30 90 13 50 12/23/18 08:15 85 16 122/71 (88) 100 08/28/18 08:00 98.9 08/28/18 08:00 50 08/28/18 08:00 Mechanical Ventilator Mechanical Ventilator 08/28/18 08:00 85 17 130/66 (87) 100 08/28/18 08:00 82 08/28/18 07:45 84 16 134/71 (92) 100 08/28/18 07:30 83 15 124/64 (84) 100 08/28/18 07:29 89 17 100 Mechanical Ventilator 50 08/28/18 07:19 88 26 100 Mechanical Ventilator 50 08/28/18 07:07 89 23 50 08/28/18 07:00 90 16 107/61 (76) 100 08/28/18 06:00 90 13 99/55 (70) 100 08/28/18 05:30 93 13 95/53 (67) 98 08/28/18 05:04 91 16 50 08/28/18 05:00 92 13 105/60 (75) 100 08/28/18 05:00 93/49 08/28/18 05:00 14 Mechanical Ventilator 50 08/28/18 04:30 99.5 92 13 100/60 (73) 100 08/28/18 04:00 Mechanical Ventilator 08/28/18 04:00 92 13 105/60 (75) 100 08/28/18 04:00 120/61 08/28/18 04:00 18 Mechanical Ventilator 50 08/28/18 04:00 99 08/28/18 03:45 98 15 82/44 (57) 99 08/28/18 03:30 100.1 98 15 89/46 (60) 99 08/28/18 03:25 96 12 100 Mechanical Ventilator 50 08/28/18 03:15 97 12 50 08/28/18 03:15 101.0 98 15 83/50 (61) 100 08/28/18 03:14 97 12 100 Mechanical Ventilator 50 08/28/18 03:03 101.2 08/28/18 03:00 83/50 08/28/18 03:00 18 Mechanical Ventilator 50 08/28/18 03:00 95 14 83/50 (61) 100 08/28/18 02:30 100 15 95/56 (69) 99 08/28/18 02:03 101.2 08/28/18 02:00 98/56 08/28/18 02:00 18 Mechanical Ventilator 50 08/28/18 02:00 101 16 96/56 (69) 100 08/28/18 01:33 18 Mechanical Ventilator 50 08/28/18 01:30 101 16 98/58 (71) 97 08/28/18 01:00 101 17 102/55 (71) 97 08/28/18 01:00 102/55 08/28/18 01:00 17 Mechanical Ventilator 50 08/28/18 00:54 101 17 50 08/28/18 00:30 101 17 94/53 (67) 97 08/28/18 00:00 Mechanical Ventilator 08/28/18 00:00 98.5 98 17 92/55 (67) 100 08/28/18 00:00 92/55 08/28/18 00:00 16 Mechanical Ventilator 50 08/28/18 00:00 99 08/27/18 23:30 99 15 91/51 (64) 97 08/27/18 23:12 83 15 99 Mechanical Ventilator 50 08/27/18 23:02 93 12 50 08/27/18 23:02 94 13 100 Mechanical Ventilator 50 08/27/18 23:00 18 Mechanical Ventilator 50 08/27/18 23:00 95 13 104/59 (74) 100 08/27/18 22:30 92 16 113/64 (80) 100 08/27/18 22:00 18 Mechanical Ventilator 50 08/27/18 22:00 94 17 122/72 (89) 100 08/27/18 21:37 50 08/27/18 21:35 95 16 100 Mechanical Ventilator 50.0 08/27/18 21:30 95 16 123/63 (83) 100 08/27/18 21:05 94 17 50 08/27/18 21:00 94 15 117/67 (84) 98 08/27/18 21:00 18 Mechanical Ventilator 50 08/27/18 20:30 92 19 104/58 (73) 99 08/27/18 20:00 Mechanical Ventilator 08/27/18 20:00 97.8 87 17 126/70 (88) 96 08/27/18 20:00 17 Mechanical Ventilator 50 08/27/18 20:00 88 08/27/18 19:30 82 18 122/68 (86) 96 08/27/18 19:00 80 15 110/67 (81) 97 08/27/18 19:00 80 13 97 Mechanical Ventilator 50 08/27/18 18:50 85 15 95 Mechanical Ventilator 50 08/27/18 18:44 87 17 50 18 18:40 17 Mechanical Ventilator 50 08/27/18 18:00 115/88 08/27/18 18:00 16 Mechanical Ventilator 50 08/27/18 18:00 81 15 115/68 (84) 95 08/27/18 17:13 85 15 50 08/27/18 17:00 105/64 08/27/18 17:00 14 Mechanical Ventilator 50 08/27/18 17:00 99.0 85 12 105/64 (78) 98 Height (Feet): 5 Height (Inches): 7.00 Weight (Pounds): 152 General Appearance: other - on vent, sedated, no pressors, fio2-40 % HEENT: normocephalic, atraumatic, anicteric Respiratory/Chest: crackles/rales, rhonchi - bilaterally Cardiovascular: normal rate, regular rhythm, no gallop/murmur, no JVD Abdomen: normal bowel sounds, soft, non tender, no organomegaly, non distended Genitourinary: other - + reyes - urine clear Extremities: no cyanosis Skin: no rash Neurologic/Psychiatric: other - sedated, on vent Lymphatic: no neck adenopathy Musculoskeletal: no effusion Objective CT scan of abdomen and pelvis: Impression: Mildly fluid-filled small bowel loops, nonspecific No acute process otherwise Postcholecystectomy changes. What are probably hepatic cysts adjacent to the gallbladder fossa mimics fluid in the gallbladder fossa on the axial views, but appear to be cysts on the coronal images. Nonetheless, biloma or other pathologic collection not completely excludable Multiple nonobstructive left renal calculi Reyes catheter Bilateral basilar pulmonary interstitial prominence, nonspecific Scoliosis and spondylosis Chest x-ray - nad x 2, reports noted Chest x-ray - 08/25/18 Impression: Interval worsening of aeration with development of dense airspace opacities in the medial right mid/lower lung and patchy opacities in the right upper lung concerning for multifocal pneumonia. Perihilar interstitial opacities in the left raise question for a degree of underlying congestion/fluid overload. Clinical correlation/follow-up recommended. Findings discussed with ordering physician Dr. Boinlla at time of dictation of the final report. Chest - x-ray - 08/26/18 - Procedure: XRAY Chest 1v Indication: Shortness of breath Technique: One view of the chest Comparison: 08/25/2018 Findings: Less optimal inspiration currently Extensive bilateral infiltrates versus edema appear unchanged on the right, slightly worse on the left. There may be some pleural fluid on the left. The heart size is normal Impression: Bilateral infiltrates again demonstrated, slightly worse on the left over one Chest x-ray - 08/28 - COMPARISON: Chest x-rays dated 08/27/18 FINDINGS: Lungs: Patchy perihilar opacities, which may represent pulmonary edema versus infiltrates, not significantly changed compared to the prior exam. Pleural space: Unremarkable. The costophrenic angles are sharp. No visible pneumothorax. Heart: Unremarkable. No cardiomegaly. Mediastinum: Unremarkable. Bones/joints: Unremarkable. Tubes, lines and devices: Stable positioning of the endotracheal tube and nasogastric tube. EKG leads overlie the thorax. IMPRESSION: No significant interval change in the patchy perihilar opacities, which may represent pulmonary edema versus infiltrates. Microbiology Date/Time Source Procedure Growth Status 08/26/18 15:38 Blood Blood Culture - Preliminary NO GROWTH AFTER 24 HOURS Resulted 08/26/18 15:30 Blood Blood Culture - Preliminary NO GROWTH AFTER 24 HOURS Resulted 08/26/18 11:45 Sputum Gram Stain - Final Resulted 08/26/18 11:45 Sputum Sputum Culture - Preliminary NO GROWTH Resulted 08/26/18 05:00 Sputum Induced Gram Stain - Final Complete 08/26/18 05:00 Sputum Culture - Final Cyndee Albicans Complete Laboratory Tests Test 08/28/18 05:21 08/28/18 08:55 08/28/18 11:30 White Blood Count 11.9 K/UL (4.8-10.8) H Red Blood Count 3.97 M/UL (4.70-6.10) L Hemoglobin 11.7 G/DL (14.2-18.0) L Hematocrit 34.7 % (42.0-52.0) L Mean Corpuscular Volume 87 FL (80-99) Mean Corpuscular Hemoglobin 29.5 PG (27.0-31.0) Mean Corpuscular Hemoglobin Concent 33.7 G/DL (32.0-36.0) Red Cell Distribution Width 12.0 % (11.6-14.8) Platelet Count 140 K/UL (150-450) L Mean Platelet Volume 7.3 FL (6.5-10.1) Neutrophils (%) (Auto) % (45.0-75.0) Lymphocytes (%) (Auto) % (20.0-45.0) Monocytes (%) (Auto) % (1.0-10.0) Eosinophils (%) (Auto) % (0.0-3.0) Basophils (%) (Auto) % (0.0-2.0) Differential Total Cells Counted 100 Neutrophils % (Manual) 88 % (45-75) H Lymphocytes % (Manual) 4 % (20-45) L Monocytes % (Manual) 8 % (1-10) Eosinophils % (Manual) 0 % (0-3) Basophils % (Manual) 0 % (0-2) Band Neutrophils 0 % (0-8) Platelet Estimate Decreased L Platelet Morphology Normal Hypochromasia 1+ Sodium Level 138 MMOL/L (136-145) Potassium Level 3.0 MMOL/L (3.5-5.1) L Chloride Level 98 MMOL/L (98-107) Carbon Dioxide Level 28 MMOL/L (21-32) Anion Gap 12 mmol/L (5-15) Blood Urea Nitrogen 52 mg/dL (7-18) H Creatinine 2.8 MG/DL (0.55-1.30) H Estimat Glomerular Filtration Rate mL/min (>60) Glucose Level 128 MG/DL (74-106) H Uric Acid 9.7 MG/DL (2.6-7.2) H Calcium Level 8.4 MG/DL (8.5-10.1) L Total Bilirubin 0.6 MG/DL (0.2-1.0) Aspartate Amino Transf (AST/SGOT) 41 U/L (15-37) H Alanine Aminotransferase (ALT/SGPT) 54 U/L (12-78) Alkaline Phosphatase 53 U/L (46-116) Total Creatine Kinase 353 U/L (26-308) H Total Protein 7.3 G/DL (6.4-8.2) Albumin 2.8 G/DL (3.4-5.0) L Globulin 4.5 g/dL Albumin/Globulin Ratio 0.6 (1.0-2.7) L Amylase Level 138 U/L (25-115) H Lipase 67 U/L (73-393) L Random Vancomycin Level 28.2 ug/mL Arterial Blood pH 7.300 (7.350-7.450) Arterial Blood Partial Pressure CO2 54.3 mmHg (35.0-45.0) H Arterial Blood Partial Pressure O2 113.7 mmHg (75.0-100.0) H Arterial Blood HCO3 26.6 mmol/L (22.0-26.0) H Arterial Blood Oxygen Saturation 97.0 % (95-100) Arterial Blood Base Excess -0.4 (-2-2) Danny Test Positive Gastric Fluid pH Pending Gastric Fluid Occult Blood Pending Current Medications Medications (Trade) Dose Ordered Sig/Elli Route PRN Reason Start Time Stop Time Status Last Admin Dose Admin Acetaminophen (Tylenol) 650 mg Q4H PRN RECTAL Mild Pain (Pain Scale 1-3) 08/26/18 11:00 09/25/18 10:59 08/28/18 02:33 Albuterol/ Ipratropium (Albuterol/ Ipratropium) 3 ml Q4HRT HHN 08/25/18 11:00 08/30/18 10:59 08/28/18 14:59 Albuterol/ Ipratropium (Albuterol/ Ipratropium) 3 ml Q6H PRN HHN Shortness of Breath 08/27/18 21:45 09/01/18 21:29 08/27/18 21:33 Chlorhexidine Gluconate (Gabriela-Hex 2%) 1 applic DAILY@1999 TOPIC 08/26/18 20:00 09/25/18 19:59 08/27/18 20:08 Dextrose (Dextrose 50%) 25 ml Q30M PRN IV Hypoglycemia 08/25/18 08:30 09/21/18 23:29 Dextrose (Dextrose 50%) 50 ml Q30M PRN IV Hypoglycemia 08/25/18 08:30 09/21/18 23:29 Dopamine HCl/ Dextrose 250 ml @ 0 mls/hr Q24H IV 08/26/18 22:45 09/25/18 22:44 08/28/18 09:27 Fentanyl Citrate 1000 mcg/Sodium Chloride 100 ml @ 0 mls/hr Q24H IV 08/26/18 13:00 09/02/18 12:59 08/28/18 01:33 Guaifenesin/ Dextromethorphan (Robitussin DM Syrup) 5 ml Q6H PRN ORAL For Cough 08/25/18 08:30 09/23/18 08:29 Heparin Sodium (Porcine) (Heparin 5000 units/ml) 5,000 units EVERY 12 HOURS SUBQ 08/25/18 09:00 09/22/18 08:59 08/28/18 08:55 Hydrocortisone (Solu-CORTEF) 100 mg EVERY 8 HOURS IV 08/26/18 22:00 09/25/18 21:59 08/28/18 14:11 Insulin Aspart (NovoLOG) EVERY 6 HOURS SUBQ 08/25/18 12:00 09/22/18 00:00 08/25/18 18:33 Levothyroxine Sodium (Synthroid) 75 mcg DAILY IV 08/28/18 09:00 09/27/18 08:59 08/28/18 09:37 Lorazepam (Ativan 2mg/ml 1ml) 1 mg Q6H PRN IV For Anxiety 08/27/18 22:30 09/03/18 22:29 08/27/18 22:43 Meropenem 1 gm/ Sodium Chloride 100 ml @ 200 mls/hr Q12HR@0600,1800 IVPB 08/27/18 18:00 09/01/18 17:59 08/28/18 05:54 Ondansetron HCl (Zofran) 4 mg Q4H PRN IVP Nausea & Vomiting 08/25/18 09:15 09/22/18 17:03 08/27/18 20:40 Pantoprazole (Protonix) 40 mg DAILY ORAL 08/25/18 09:00 09/24/18 08:59 08/28/18 08:51 Vancomycin HCl (Vanco rx to dose) 1 ea DAILY PRN MISC Per rx protocol 08/27/18 12:00 09/26/18 11:59 Treasure Vargas MD Aug 28, 2018 16:21
--- NOTE | 2018-08-28 16:55 | Nephrology Progress Note ---
Assessment/Plan Problem List: (1) Respiratory failure (2) ROSA (acute kidney injury) (3) Sepsis (4) Adrenal insufficiency Plan neg fluid balance, cxr on better may represent pneumonia rather than chf, will stop lasix for now, replace K, now off pressors Subjective ROS Limited/Unobtainable: Yes Objective Objective Last 24 Hour Vital Signs Date Time Temp Pulse Resp B/P (MAP) Pulse Ox O2 Delivery O2 Flow Rate FiO2 08/28/18 15:09 101 19 99 Mechanical Ventilator 40 08/28/18 15:00 103 19 129/65 (86) 100 08/28/18 14:59 101 19 100 Mechanical Ventilator 50 08/28/18 14:46 101 19 40 08/28/18 14:00 105 19 141/61 (87) 100 08/28/18 13:00 97.9 105 18 146/71 (96) 100 08/28/18 12:45 105 22 40 08/28/18 12:30 105 19 141/70 (93) 100 08/28/18 12:15 104 17 146/72 (96) 100 08/28/18 12:00 Mechanical Ventilator Mechanical Ventilator 08/28/18 12:00 105 08/28/18 12:00 104 16 137/69 (91) 100 08/28/18 11:45 99.0 103 17 132/71 (91) 100 08/28/18 11:30 99 17 112/94 (100) 100 08/28/18 11:15 96 18 121/70 (87) 100 08/28/18 11:10 100 15 96 Mechanical Ventilator 40 08/28/18 11:00 96 18 118/58 (78) 100 08/28/18 11:00 95 17 100 Mechanical Ventilator 50 08/28/18 11:00 102 14 117/59 (78) 100 08/28/18 10:55 95 17 40 08/28/18 10:45 101 17 118/58 (78) 100 08/28/18 10:30 100 17 109/59 (76) 100 08/28/18 10:15 100 15 108/61 (77) 100 08/28/18 10:00 85 16 122/71 (88) 100 08/28/18 09:45 99 17 103/61 (75) 100 08/28/18 09:30 95 16 109/68 (82) 100 08/28/18 09:27 109/62 08/28/18 09:15 93 15 112/63 (79) 100 08/28/18 09:10 40 08/28/18 09:05 40 08/28/18 09:00 89 16 113/63 (80) 100 08/28/18 08:45 90 16 109/62 (78) 100 08/28/18 08:30 90 16 106/56 (73) 100 08/28/18 08:30 90 13 50 08/28/18 08:15 85 16 122/71 (88) 100 08/28/18 08:00 98.9 08/28/18 08:00 50 08/28/18 08:00 Mechanical Ventilator Mechanical Ventilator 08/28/18 08:00 85 17 130/66 (87) 100 08/28/18 08:00 82 08/28/18 07:45 84 16 134/71 (92) 100 08/28/18 07:30 83 15 124/64 (84) 100 08/28/18 07:29 89 17 100 Mechanical Ventilator 50 08/28/18 07:19 88 26 100 Mechanical Ventilator 50 08/28/18 07:07 89 23 50 08/28/18 07:00 90 16 107/61 (76) 100 08/28/18 06:00 90 13 99/55 (70) 100 08/28/18 05:30 93 13 95/53 (67) 98 08/28/18 05:04 91 16 50 08/28/18 05:00 92 13 105/60 (75) 100 08/28/18 05:00 93/49 08/28/18 05:00 14 Mechanical Ventilator 50 08/28/18 04:30 99.5 92 13 100/60 (73) 100 08/28/18 04:00 Mechanical Ventilator 08/28/18 04:00 92 13 105/60 (75) 100 08/28/18 04:00 120/61 08/28/18 04:00 18 Mechanical Ventilator 50 08/28/18 04:00 99 08/28/18 03:45 98 15 82/44 (57) 99 08/28/18 03:30 100.1 98 15 89/46 (60) 99 08/28/18 03:25 96 12 100 Mechanical Ventilator 50 08/28/18 03:15 97 12 50 08/28/18 03:15 101.0 98 15 83/50 (61) 100 08/28/18 03:14 97 12 100 Mechanical Ventilator 50 08/28/18 03:03 101.2 08/28/18 03:00 83/50 08/28/18 03:00 18 Mechanical Ventilator 50 08/28/18 03:00 95 14 83/50 (61) 100 08/28/18 02:30 100 15 95/56 (69) 99 08/28/18 02:03 101.2 08/28/18 02:00 98/56 08/28/18 02:00 18 Mechanical Ventilator 50 08/28/18 02:00 101 16 96/56 (69) 100 08/28/18 01:33 18 Mechanical Ventilator 50 08/28/18 01:30 101 16 98/58 (71) 97 08/28/18 01:00 101 17 102/55 (71) 97 08/28/18 01:00 102/55 08/28/18 01:00 17 Mechanical Ventilator 50 08/28/18 00:54 101 17 50 08/28/18 00:30 101 17 94/53 (67) 97 08/28/18 00:00 Mechanical Ventilator 08/28/18 00:00 98.5 98 17 92/55 (67) 100 08/28/18 00:00 92/55 08/28/18 00:00 16 Mechanical Ventilator 50 08/28/18 00:00 99 08/27/18 23:30 99 15 91/51 (64) 97 08/27/18 23:12 83 15 99 Mechanical Ventilator 50 08/27/18 23:02 93 12 50 08/27/18 23:02 94 13 100 Mechanical Ventilator 50 08/27/18 23:00 18 Mechanical Ventilator 50 08/27/18 23:00 95 13 104/59 (74) 100 08/27/18 22:30 92 16 113/64 (80) 100 08/27/18 22:00 18 Mechanical Ventilator 50 08/27/18 22:00 94 17 122/72 (89) 100 08/27/18 21:37 50 08/27/18 21:35 95 16 100 Mechanical Ventilator 50.0 08/27/18 21:30 95 16 123/63 (83) 100 08/27/18 21:05 94 17 50 12/22/18 21:00 94 15 117/67 (84) 98 08/27/18 21:00 18 Mechanical Ventilator 50 08/27/18 20:30 92 19 104/58 (73) 99 08/27/18 20:00 Mechanical Ventilator 08/27/18 20:00 97.8 87 17 126/70 (88) 96 08/27/18 20:00 17 Mechanical Ventilator 50 08/27/18 20:00 88 08/27/18 19:30 82 18 122/68 (86) 96 08/27/18 19:00 80 15 110/67 (81) 97 08/27/18 19:00 80 13 97 Mechanical Ventilator 50 08/27/18 18:50 85 15 95 Mechanical Ventilator 50 08/27/18 18:44 87 17 50 08/27/18 18:40 17 Mechanical Ventilator 50 08/27/18 18:00 115/88 08/27/18 18:00 16 Mechanical Ventilator 50 08/27/18 18:00 81 15 115/68 (84) 95 08/27/18 17:13 85 15 50 08/27/18 17:00 105/64 08/27/18 17:00 14 Mechanical Ventilator 50 08/27/18 17:00 99.0 85 12 105/64 (78) 98 Intake and Output 08/27/18 08/28/18 19:00 07:00 Intake Total 1189.651 ml 216.847 ml Output Total 1365 ml 780 ml Balance -175.349 ml -563.153 ml IV Total 1189.651 ml 216.847 ml Output Urine Total 1365 ml 730 ml Emesis 50 ml Laboratory Tests 08/28/18 05:21: White Blood Count 11.9H, Red Blood Count 3.97L, Hemoglobin 11.7L, Hematocrit 34.7L, Mean Corpuscular Volume 87, Mean Corpuscular Hemoglobin 29.5, Mean Corpuscular Hemoglobin Concent 33.7, Red Cell Distribution Width 12.0, Platelet Count 140L, Mean Platelet Volume 7.3, Neutrophils (%) (Auto) , Lymphocytes (%) ( Auto) , Monocytes (%) (Auto) , Eosinophils (%) (Auto) , Basophils (%) (Auto) , Differential Total Cells Counted 100, Neutrophils % (Manual) 88H, Lymphocytes % (Manual) 4L, Monocytes % (Manual) 8, Eosinophils % (Manual) 0, Basophils % ( Manual) 0, Band Neutrophils 0, Platelet Estimate DecreasedL, Platelet Morphology Normal, Hypochromasia 1+, Sodium Level 138, Potassium Level 3.0L, Chloride Level 98, Carbon Dioxide Level 28, Anion Gap 12, Blood Urea Nitrogen 52H, Creatinine 2.8H, Estimat Glomerular Filtration Rate , Glucose Level 128H, Uric Acid 9.7H, Calcium Level 8.4L, Total Bilirubin 0.6, Aspartate Amino Transf (AST/SGOT) 41H, Alanine Aminotransferase (ALT/SGPT) 54, Alkaline Phosphatase 53 , Total Creatine Kinase 353H, Total Protein 7.3, Albumin 2.8L, Globulin 4.5, Albumin/Globulin Ratio 0.6L, Amylase Level 138H, Lipase 67L, Random Vancomycin Level 28.2 08/28/18 08:55: Arterial Blood pH 7.300L, Arterial Blood Partial Pressure CO2 54.3H, Arterial Blood Partial Pressure O2 113.7H, Arterial Blood HCO3 26.6H, Arterial Blood Oxygen Saturation 97.0, Arterial Blood Base Excess -0.4, Danny Test Positive 08/28/18 11:30: Gastric Fluid pH [Pending], Gastric Fluid Occult Blood [Pending] Height (Feet): 5 Height (Inches): 7.00 Weight (Pounds): 152 General Appearance: lethargic, other - intubated EENT: normal ENT inspection Neck: normal alignment Cardiovascular: regular rhythm, tachycardia Respiratory/Chest: rhonchi - bilaterally Abdomen: non tender, soft Neurologic: unresponsive Cesar Nunez MD Aug 28, 2018 16:55
[2018-08-28 17:32] LABS: CREATININE 2.8 MG/DL (0.55-1.30)
--- NOTE | 2018-08-28 18:00 | NUR ---
NURSE NOTES: Patient noted febrile, tylenol suppository given as ordered, cold compress provided. Remained off of Fentanyl drip and Dopamine drip. Seen on rounds by Dr. Chad MD called son for updates.
--- NOTE | 2018-08-28 19:03 | NUR ---
NURSE NOTES: Called Dr. Vargas and made aware that patient at 1645 had temperature of 101.6 then Tylenol suppository was given with current temperature of 102.5. Ice compress provided. Awaiting for call back. Addendum: 08/28/18 at 2038 by Maxine Gilliam RN NURSE NOTES: Call back received from Dr. Vargas with order of blood culture 1 set each peripheral and PICC line. And start on Fluconazole.
--- NOTE | 2018-08-28 19:35 | NUR ---
HAND-OFF: Report given to FAY Wheeler. Endorsed that patient is currently off of Dopamine and Fentanyl.
--- NOTE | 2018-08-28 20:00 | NUR ---
NURSE NOTES: received in no acute distress, orally intubated with settings ac 12, tv 500, fio2 40% peep 5. o2 sat 100%,suctioned via ett with mod amount whitish thin secretion, director of cardiac rehabilitation shows sinus tachy with hr 101/min,ngt intact and patent to low intermittent suction with coffee ground material, soft wrist restraints on to both wrists, continue to try to reach for ett when released, reyes cath intact and patent with adequate urine output, repositioned, no skin breakdown, heel protectors applioed, temp 101.8, cooling measures done.
[2018-08-28] MEDS: Dyna-Hex 2% Top Sol 2oz TOPIC SCH (20:43)
--- NOTE | 2018-08-28 21:30 | NUR ---
NURSE NOTES: tylenol 650mg via rectum given
--- NOTE | 2018-08-28 22:00 | NUR ---
NURSE NOTES: fentanyl drip about 20ml left in the bag wasted, witnessed by payton cunninghamrn
--- NOTE | 2018-08-28 22:30 | NUR ---
HAND-OFF: Report given to jericho dickerson.
--- NOTE | 2018-08-28 22:31 | NUR ---
NURSE NOTES: Endorsement received from FAY Wheeler for continuity of care. Patient opens eyes spontaneously, Orally intubated with 7.5, 23 lipline. AC 12 Vt 500, PEEP 5. With NGT to low intermittent suction. Sarmiento connected to urimeter. With right upper arm PICC. Bilateral soft wrist restraints for safety. Bed locked and in low position. Head of bed elevated. Still with fever.
[2018-08-29] VITALS (24 sets, daily range): BP systolic 91–169; BP diastolic 52–81
--- NOTE | 2018-08-29 | NUR ---
NURSE NOTES: Still with fever 101F, PRN tylenol given. Bed bath done, placed on cooling blanket. Noted with buttock redness.
--- NOTE | 2018-08-29 01:00 | NUR ---
NURSE NOTES: Temperature 98.7F. Cooling blanket turned off and kept on monitor mode.
[2018-08-29] MEDS: Albuterol/Ipratropium 3ml neb HHN SCH ×6 (02:38→23:19)
--- NOTE | 2018-08-29 03:00 | NUR ---
NURSE NOTES: Patient asleep. No shortness of breath.
--- NOTE | 2018-08-29 04:00 | Progress Note ---
DATE: 08/28/2018 INTERNAL MEDICINE PROGRESS NOTE SUBJECTIVE: The patient remains orally intubated, mechanically ventilated, sedated earlier, remains on low-dose dopamine which is being tapered off. Blood pressure parameters are stabilized with urine output is good, monitored sinus tachycardia. OBJECTIVE: LUNGS: Bilateral breath sounds with rhonchi. CARDIAC: Regular rhythm and rate. Normal S1 and S2 with a fourth heart sound. ABDOMEN: Soft with no distention. No tenderness. EXTREMITIES: Trace edema. LABORATORY DATA: ABG, 7.30, 54, 113. White count is 11.9 and hemoglobin 11.7. Uric acid 9.7, potassium is 3, sodium 138, amylase 138, lipase normal, BUN 52, and creatinine 2.8. IMPRESSION: 1. Pneumonia. 2. Immunocompromised state. 3. Adrenal insufficiency. 4. Shock. 5. Respiratory failure. 6. Hypoxia. 7. Hyperuricemia. 8. Hypokalemia. 9. Acute renal failure due to ATN. PLAN: 1. Discontinue dopamine. 2. Taper steroids based on clinical parameters. 3. Broad-spectrum antibiotics. 4. Maintain adequate hydration. 5. Monitor cardiorenal parameters. 6. No diuresis at this time. 7. Taper sedation. 8. Adjust vent settings. Hopefully, we can wean soon. 9. Remains critical, but stable. 10. Discussed by telephone with the patient's son, Marjan ____ condition and plan of care at this time. Nathaniel Bonilla M.D. DR: OXANA JOB#: [id number] CC:
--- NOTE | 2018-08-29 05:00 | NUR ---
NURSE NOTES: Patient asleep, NGT still connected to low intermittent suction draining coffee ground output.
[2018-08-29 05:41] LABS: HEMATOCRIT 31.2 % (42.0-52.0); HEMOGLOBIN 10.6 G/DL (14.2-18.0); MEAN CORPUSCULAR VOLUME 88 FL (80-99); PLATELET COUNT 126 K/UL (150-450); RED BLOOD COUNT 3.53 M/UL (4.70-6.10); RED CELL DISTRIBUTION WIDTH 12.3 % (11.6-14.8); WHITE BLOOD COUNT 6.6 K/UL (4.8-10.8)
[2018-08-29] MEDS: NovoLOG Insulin Flexpen SUBQ SCH ×3 (05:54→17:49)
[2018-08-29] MEDS: Hydrocortisone 100mg Inj IV SCH ×3 (05:55→22:23)
[2018-08-29 06:06] LABS: ALANINE AMINOTRANSFERASE 37 U/L (12-78); ALBUMIN 2.5 G/DL (3.4-5.0); ALBUMIN/GLOBULIN RATIO 0.5 (1.0-2.7); ALKALINE PHOSPHATASE 44 U/L (46-116); ANION GAP 14 mmol/L (5-15); ASPARTATE AMINO TRANSFERASE 32 U/L (15-37); BILIRUBIN,TOTAL 0.7 MG/DL (0.2-1.0); BLOOD UREA NITROGEN 71 mg/dL (7-18); CALCIUM 8.8 MG/DL (8.5-10.1); CARBON DIOXIDE 26 MMOL/L (21-32); CHLORIDE 103 MMOL/L (98-107); CREATININE 2.8 MG/DL (0.55-1.30); SODIUM 143 MMOL/L (136-145)
--- NOTE | 2018-08-29 06:30 | NUR ---
NURSE NOTES: Patient seen and examined by Dr. Vera. With new order to start NG feeding. Feeding started Glucerna 1.2 at 10ml/hr, head of bed kept elevated.
--- NOTE | 2018-08-29 06:39 | General Progress Note ---
Assessment/Plan Problem List: (1) Sepsis ICD Codes: A41.9 - Sepsis, unspecified organism SNOMED: 20669337 (2) Diabetes ICD Codes: E11.9 - Type 2 diabetes mellitus without complications SNOMED: 00163892 (3) Hypothyroidism ICD Codes: E03.9 - Hypothyroidism, unspecified SNOMED: 31974412 (4) Abdominal distension (gaseous) ICD Codes: R14.0 - Abdominal distension (gaseous) SNOMED: 193302544 Assessment/Plan ? ileus Vs small bowl obstruction kub>>> non specific will start NGTF fu labs Subjective ROS Limited/Unobtainable: No Allergies: Coded Allergies: No Known Allergies (Unverified , 08/22/18) Subjective vomited transferred back to the ICU Objective Last 24 Hour Vital Signs Date Time Temp Pulse Resp B/P (MAP) Pulse Ox O2 Delivery O2 Flow Rate FiO2 08/29/18 05:13 91 16 40 08/29/18 04:00 Mechanical Ventilator Mechanical Ventilator 08/29/18 03:00 99 14 128/63 (84) 99 08/29/18 02:51 87 18 100 Mechanical Ventilator 40 08/29/18 02:38 91 27 100 Mechanical Ventilator 40 08/29/18 02:34 88 27 40 08/29/18 02:00 79 14 143/62 (89) 99 08/29/18 01:06 92 15 40 08/29/18 01:00 98.7 79 14 129/58 (81) 99 08/29/18 00:00 101.0 89 15 103/55 (71) 99 08/29/18 00:00 Mechanical Ventilator Mechanical Ventilator 08/28/18 23:26 91 13 100 Mechanical Ventilator 40 08/28/18 23:14 92 14 100 Mechanical Ventilator 40 08/28/18 23:13 88 13 40 08/28/18 23:00 101.0 89 16 116/67 (83) 100 08/28/18 23:00 101.0 08/28/18 22:45 116/67 08/28/18 22:00 101.5 95 20 120/57 (78) 100 08/28/18 21:21 97 14 40 08/28/18 21:00 105 20 119/60 (79) 100 08/28/18 20:00 101.8 101 22 106/48 (67) 100 08/28/18 20:00 101 08/28/18 20:00 Mechanical Ventilator Mechanical Ventilator 08/28/18 20:00 40 08/28/18 19:15 100 13 99 Mechanical Ventilator 40 08/28/18 19:08 98 19 97 Mechanical Ventilator 40 08/28/18 19:00 95 19 113/58 (76) 100 08/28/18 18:59 95 19 40 08/28/18 18:00 99 19 126/57 (80) 100 08/28/18 17:00 100 19 124/58 (80) 100 08/28/18 16:58 99 17 40 08/28/18 16:00 40 08/28/18 16:00 101.6 101 19 134/63 (86) 100 08/28/18 16:00 Mechanical Ventilator Mechanical Ventilator 08/28/18 16:00 102 08/28/18 15:09 101 19 99 Mechanical Ventilator 40 08/28/18 15:00 103 19 129/65 (86) 100 08/28/18 14:59 101 19 100 Mechanical Ventilator 50 08/28/18 14:46 101 19 40 08/28/18 14:00 105 19 141/61 (87) 100 08/28/18 13:00 97.9 105 18 146/71 (96) 100 08/28/18 12:45 105 22 40 08/28/18 12:30 105 19 141/70 (93) 100 08/28/18 12:15 104 17 146/72 (96) 100 08/28/18 12:00 Mechanical Ventilator Mechanical Ventilator 08/28/18 12:00 105 08/28/18 12:00 40 08/28/18 12:00 104 16 137/69 (91) 100 08/28/18 11:45 99.0 103 17 132/71 (91) 100 08/28/18 11:30 99 17 112/94 (100) 100 08/28/18 11:15 96 18 121/70 (87) 100 08/28/18 11:10 100 15 96 Mechanical Ventilator 40 08/28/18 11:00 96 18 118/58 (78) 100 08/28/18 11:00 95 17 100 Mechanical Ventilator 50 08/28/18 11:00 102 14 117/59 (78) 100 08/28/18 10:55 95 17 40 08/28/18 10:45 101 17 118/58 (78) 100 08/28/18 10:30 100 17 109/59 (76) 100 08/28/18 10:15 100 15 108/61 (77) 100 08/28/18 10:00 85 16 122/71 (88) 100 08/28/18 09:45 99 17 103/61 (75) 100 08/28/18 09:30 95 16 109/68 (82) 100 08/28/18 09:27 109/62 08/28/18 09:15 93 15 112/63 (79) 100 08/28/18 09:10 40 08/28/18 09:05 40 08/28/18 09:00 89 16 113/63 (80) 100 08/28/18 08:45 90 16 109/62 (78) 100 08/28/18 08:30 90 16 106/56 (73) 100 08/28/18 08:30 90 13 50 08/28/18 08:15 85 16 122/71 (88) 100 08/28/18 08:00 98.9 08/28/18 08:00 50 08/28/18 08:00 Mechanical Ventilator Mechanical Ventilator 08/28/18 08:00 85 17 130/66 (87) 100 08/28/18 08:00 82 08/28/18 07:45 84 16 134/71 (92) 100 08/28/18 07:30 83 15 124/64 (84) 100 08/28/18 07:29 89 17 100 Mechanical Ventilator 50 08/28/18 07:19 88 26 100 Mechanical Ventilator 50 08/28/18 07:07 89 23 50 08/28/18 07:00 90 16 107/61 (76) 100 Intake and Output 08/28/18 08/29/18 19:00 07:00 Intake Total 145.093 ml 100 ml Output Total 2100 ml 3750 ml Balance -1954.907 ml -3650 ml IV Total 145.093 ml 100 ml Output Urine Total 1800 ml 750 ml Other 300 ml 3000 ml Laboratory Tests 08/28/18 08:55: Arterial Blood pH 7.300L, Arterial Blood Partial Pressure CO2 54.3H, Arterial Blood Partial Pressure O2 113.7H, Arterial Blood HCO3 26.6H, Arterial Blood Oxygen Saturation 97.0, Arterial Blood Base Excess -0.4, Danny Test Positive 08/28/18 11:30: Gastric Fluid pH [Pending], Gastric Fluid Occult Blood [Pending] 08/29/18 04:45: White Blood Count 6.6, Red Blood Count 3.53L, Hemoglobin 10.6L, Hematocrit 31.2L , Mean Corpuscular Volume 88, Mean Corpuscular Hemoglobin 29.9, Mean Corpuscular Hemoglobin Concent 33.9, Red Cell Distribution Width 12.3, Platelet Count 126L, Mean Platelet Volume 7.2, Neutrophils (%) (Auto) , Lymphocytes (%) ( Auto) , Monocytes (%) (Auto) , Eosinophils (%) (Auto) , Basophils (%) (Auto) , Sodium Level 143, Potassium Level 3.0L, Chloride Level 103, Carbon Dioxide Level 26, Anion Gap 14, Blood Urea Nitrogen 71H, Creatinine 2.8H, Estimat Glomerular Filtration Rate , Glucose Level 146H, Calcium Level 8.8, Total Bilirubin 0.7, Aspartate Amino Transf (AST/SGOT) 32, Alanine Aminotransferase ( ALT/SGPT) 37, Alkaline Phosphatase 44L, Total Protein 7.3, Albumin 2.5L, Globulin 4.8, Albumin/Globulin Ratio 0.5L Height (Feet): 5 Height (Inches): 7.00 Weight (Pounds): 152 General Appearance: lethargic EENT: normal ENT inspection Neck: supple Cardiovascular: normal rate Respiratory/Chest: decreased breath sounds Abdomen: non tender, soft, hypoactive bowel sounds Extremities: non-tender Nick Vera MD Aug 29, 2018 06:39
--- NOTE | 2018-08-29 07:07 | NUR ---
RESPIRATORY NOTE: Received pt. on 840 vent. Vent settings are: A/C rate of 12, Vt 500, FI02 40%, PEEP +5. No respiratory distress noted, SP02 @ 100%. Ambu bag @ bs. Vent plugged on red outlet. Will continue to monitor pt.
--- NOTE | 2018-08-29 07:30 | NUR ---
HAND-OFF: Report given to Virgen RN per SBAR.
[2018-08-29] MEDS: LORazepam Inj 2mg/ml 1ml IV PRN (07:45)
--- NOTE | 2018-08-29 07:58 | Nephrology Progress Note ---
Assessment/Plan Problem List: (1) Respiratory failure (2) ROSA (acute kidney injury) (3) Sepsis (4) Adrenal insufficiency (5) Healthcare-associated pneumonia Plan neg fluid balance, cxr not better may represent pneumonia rather than chf, will stop lasix for now, replace K, now off pressors, hydrate Subjective ROS Limited/Unobtainable: Yes Objective Objective Last 24 Hour Vital Signs Date Time Temp Pulse Resp B/P (MAP) Pulse Ox O2 Delivery O2 Flow Rate FiO2 08/29/18 07:13 90 18 100 Mechanical Ventilator 40 08/29/18 07:09 88 18 40 08/29/18 07:05 95 18 100 Mechanical Ventilator 40 08/29/18 07:00 85 18 112/60 (77) 98 08/29/18 06:00 88 18 140/65 (90) 97 08/29/18 05:13 91 16 40 08/29/18 05:00 92 18 91/52 (65) 97 08/29/18 04:00 Mechanical Ventilator Mechanical Ventilator 08/29/18 04:00 98.8 97 17 107/62 (77) 98 08/29/18 04:00 95 08/29/18 03:00 99 14 128/63 (84) 99 08/29/18 02:51 87 18 100 Mechanical Ventilator 40 08/29/18 02:38 91 27 100 Mechanical Ventilator 40 08/29/18 02:34 88 27 40 08/29/18 02:00 79 14 143/62 (89) 99 08/29/18 01:06 92 15 40 08/29/18 01:00 98.7 79 14 129/58 (81) 99 08/29/18 00:00 101.0 89 15 103/55 (71) 99 08/29/18 00:00 89 08/29/18 00:00 Mechanical Ventilator Mechanical Ventilator 08/28/18 23:26 91 13 100 Mechanical Ventilator 40 08/28/18 23:14 92 14 100 Mechanical Ventilator 40 08/28/18 23:13 88 13 40 08/28/18 23:00 101.0 89 16 116/67 (83) 100 08/28/18 23:00 101.0 08/28/18 22:45 116/67 08/28/18 22:00 101.5 95 20 120/57 (78) 100 08/28/18 21:21 97 14 40 08/28/18 21:00 105 20 119/60 (79) 100 08/28/18 20:00 101.8 101 22 106/48 (67) 100 08/28/18 20:00 101 08/28/18 20:00 Mechanical Ventilator Mechanical Ventilator 08/28/18 20:00 40 08/28/18 19:15 100 13 99 Mechanical Ventilator 40 08/28/18 19:08 98 19 97 Mechanical Ventilator 40 08/28/18 19:00 95 19 113/58 (76) 100 08/28/18 18:59 95 19 40 08/28/18 18:00 99 19 126/57 (80) 100 08/28/18 17:00 100 19 124/58 (80) 100 08/28/18 16:58 99 17 40 08/28/18 16:00 40 08/28/18 16:00 101.6 101 19 134/63 (86) 100 08/28/18 16:00 Mechanical Ventilator Mechanical Ventilator 08/28/18 16:00 102 08/28/18 15:09 101 19 99 Mechanical Ventilator 40 08/28/18 15:00 103 19 129/65 (86) 100 08/28/18 14:59 101 19 100 Mechanical Ventilator 50 08/28/18 14:46 101 19 40 08/28/18 14:00 105 19 141/61 (87) 100 08/28/18 13:00 97.9 105 18 146/71 (96) 100 08/28/18 12:45 105 22 40 08/28/18 12:30 105 19 141/70 (93) 100 08/28/18 12:15 104 17 146/72 (96) 100 08/28/18 12:00 Mechanical Ventilator Mechanical Ventilator 08/28/18 12:00 105 08/28/18 12:00 40 08/28/18 12:00 104 16 137/69 (91) 100 08/28/18 11:45 99.0 103 17 132/71 (91) 100 08/28/18 11:30 99 17 112/94 (100) 100 08/28/18 11:15 96 18 121/70 (87) 100 08/28/18 11:10 100 15 96 Mechanical Ventilator 40 08/28/18 11:00 96 18 118/58 (78) 100 08/28/18 11:00 95 17 100 Mechanical Ventilator 50 08/28/18 11:00 102 14 117/59 (78) 100 08/28/18 10:55 95 17 40 08/28/18 10:45 101 17 118/58 (78) 100 08/28/18 10:30 100 17 109/59 (76) 100 08/28/18 10:15 100 15 108/61 (77) 100 08/28/18 10:00 85 16 122/71 (88) 100 08/28/18 09:45 99 17 103/61 (75) 100 08/28/18 09:30 95 16 109/68 (82) 100 08/28/18 09:27 109/62 08/28/18 09:15 93 15 112/63 (79) 100 08/28/18 09:10 40 08/28/18 09:05 40 08/28/18 09:00 89 16 113/63 (80) 100 08/28/18 08:45 90 16 109/62 (78) 100 08/28/18 08:30 90 16 106/56 (73) 100 08/28/18 08:30 90 13 50 08/28/18 08:15 85 16 122/71 (88) 100 08/28/18 08:00 98.9 08/28/18 08:00 50 08/28/18 08:00 Mechanical Ventilator Mechanical Ventilator 08/28/18 08:00 85 17 130/66 (87) 100 08/28/18 08:00 82 Intake and Output 08/28/18 08/29/18 19:00 07:00 Intake Total 145.093 ml 110 ml Output Total 2100 ml 4500 ml Balance -1954.907 ml -4390 ml IV Total 145.093 ml 100 ml Tube Feeding 10 ml Output Urine Total 1800 ml 900 ml Gastric Drainage Total 300 ml Other 300 ml 3300 ml Laboratory Tests 08/28/18 08:55: Arterial Blood pH 7.300L, Arterial Blood Partial Pressure CO2 54.3H, Arterial Blood Partial Pressure O2 113.7H, Arterial Blood HCO3 26.6H, Arterial Blood Oxygen Saturation 97.0, Arterial Blood Base Excess -0.4, Danny Test Positive 08/28/18 11:30: Gastric Fluid pH [Pending], Gastric Fluid Occult Blood [Pending] 08/29/18 04:45: White Blood Count 6.6, Red Blood Count 3.53L, Hemoglobin 10.6L, Hematocrit 31.2L , Mean Corpuscular Volume 88, Mean Corpuscular Hemoglobin 29.9, Mean Corpuscular Hemoglobin Concent 33.9, Red Cell Distribution Width 12.3, Platelet Count 126L, Mean Platelet Volume 7.2, Neutrophils (%) (Auto) , Lymphocytes (%) ( Auto) , Monocytes (%) (Auto) , Eosinophils (%) (Auto) , Basophils (%) (Auto) , Sodium Level 143, Potassium Level 3.0L, Chloride Level 103, Carbon Dioxide Level 26, Anion Gap 14, Blood Urea Nitrogen 71H, Creatinine 2.8H, Estimat Glomerular Filtration Rate , Glucose Level 146H, Calcium Level 8.8, Total Bilirubin 0.7, Aspartate Amino Transf (AST/SGOT) 32, Alanine Aminotransferase ( ALT/SGPT) 37, Alkaline Phosphatase 44L, Total Protein 7.3, Albumin 2.5L, Globulin 4.8, Albumin/Globulin Ratio 0.5L 08/29/18 06:00: Urine Creatinine 85.6 Height (Feet): 5 Height (Inches): 7.00 Weight (Pounds): 157 General Appearance: other - sedated, vent EENT: normal ENT inspection Neck: normal alignment Cardiovascular: regular rhythm, tachycardia Respiratory/Chest: rhonchi - bilaterally Abdomen: non tender, soft Extremities: other - no edema Neurologic: unresponsive Cesar Nunez MD Aug 29, 2018 07:58
--- NOTE | 2018-08-29 08:00 | NUR ---
NURSE NOTES: Received patient, opens eyes, squeezes hands when asked to. Patient agitated, tries removing breathing tube. Restraints intact, no discoloration or swelling noted related to restraints. Active range of motion present. Ativan given to calm patient down. nurse monitoring showing SR at this time. Patient intubated 7.5 / 23 cm lipline AC 12 VT 500 FiO2 40 and PEEP of 5. Patient on Glucerna 1.2 at 10 cc/hr - goal 50. Will increase as tolerated. Buttock redness. R upper arm PICC line. Potassium of 3.[address] Nunez. Order obtained for coverage. Fluids initiated by MD. Urine sample collected and sent down to laboratory. No new orders at this time. HOB elevated for aspiration precaution, Bed alarm on for safety, bed on lowest position. Will continue plan of care.
[2018-08-29] MEDS: Heparin 5000 units/ml inj SUBQ SCH ×2 (08:18→20:10)
--- NOTE | 2018-08-29 08:29 | Cardiology Report ---
APPROVED REPORT EXAM: Two-dimensional and M-mode echocardiogram with Doppler and color Doppler. INDICATION Bradycardia M-Mode DIMENSIONS IVSd1.1 (0.7-1.1cm)Left Atrium (MM)3.2 (1.6-4.0cm) LVDd3.5 (3.5-5.6cm)Aortic Root2.6 (2.0-3.7cm) PWd0.9 (0.7-1.1cm)Aortic Cusp Exc.1.5 (1.5-2.0cm) LVDs2.1 (2.5-4.0cm) PWs2.1 cm Technically difficult and limited study due to patients breathing. Study quality precludes accurate assessment of regional wall motion. Normal left ventricular chamber size. Global left ventricular hypokinesis. Abnormal septal motion. Left ventricular ejection fraction estimated to be 45 %. No evidence of left ventricular hypertrophy. No evidence of pericardial effusion. All other cardiac chamber sizes are within normal limits. Mild focal aortic valve sclerosis with adequate cusp excursion. Mildly thickened mitral valve leaflets with normal excursion. Mild mitral annulus and aortic root calcification. Pulmonic valve not visualized. Normal tricuspid valve structure. IVC dilated at 2.2 cm with physiological collapse. A color flow and spectral Doppler study was performed and revealed: No aortic insufficiency. Mild mitral regurgitation. Mitral inflow velocities indicates possible pseudo normalization pattern implying significant left ventricular diastolic dysfunction (Grade II). Mild tricuspid regurgitation. Tricuspid systolic velocities suggests peak right ventricular systolic pressure of 26 mmHg. No pulmonic regurgitation present.
[2018-08-29] MEDS ORDERED: D5 1/2NS w/KCl 40meq 1000ml 1,000 ML IV SCH ×2 (09:00→17:46)
--- NOTE | 2018-08-29 10:00 | NUR ---
NURSE NOTES: Dr. Fu contacted regarding consult. Doctor said he will stop by later today. No new orders at this time. Will continue plan of care.
[2018-08-29] MEDS ORDERED: Tubing IV Secondary IV ONE ×2 (10:20→10:23)
[2018-08-29] MEDS ORDERED: NS 275ml ONE (10:23)
[2018-08-29] MEDS ORDERED: 1/2 NS 1000ml IV ONE (10:23)
--- NOTE | 2018-08-29 11:48 | General Surgery Progress Note ---
General Surgery-Progress Note Subjective Additional Comments no acute events. labs improved. abg looks good. more awake today. Objective Last 24 Hour Vital Signs Date Time Temp Pulse Resp B/P (MAP) Pulse Ox O2 Delivery O2 Flow Rate FiO2 08/29/18 11:00 90 17 144/68 (93) 100 08/29/18 10:00 84 18 107/55 (72) 98 08/29/18 09:00 84 18 40 08/29/18 09:00 86 18 110/58 (75) 98 08/29/18 08:00 98.7 80 17 118/68 (85) 98 08/29/18 08:00 80 08/29/18 08:00 Mechanical Ventilator Mechanical Ventilator 08/29/18 07:13 90 18 100 Mechanical Ventilator 40 08/29/18 07:09 88 18 40 08/29/18 07:05 95 18 100 Mechanical Ventilator 40 08/29/18 07:00 85 18 112/60 (77) 98 08/29/18 06:00 88 18 140/65 (90) 97 08/29/18 05:13 91 16 40 08/29/18 05:00 92 18 91/52 (65) 97 08/29/18 04:00 Mechanical Ventilator Mechanical Ventilator 08/29/18 04:00 98.8 97 17 107/62 (77) 98 08/29/18 04:00 95 08/29/18 03:00 99 14 128/63 (84) 99 08/29/18 02:51 87 18 100 Mechanical Ventilator 40 08/29/18 02:38 91 27 100 Mechanical Ventilator 40 08/29/18 02:34 88 27 40 08/29/18 02:00 79 14 143/62 (89) 99 08/29/18 01:06 92 15 40 08/29/18 01:00 98.7 79 14 129/58 (81) 99 08/29/18 00:00 101.0 89 15 103/55 (71) 99 08/29/18 00:00 89 08/29/18 00:00 Mechanical Ventilator Mechanical Ventilator 08/28/18 23:26 91 13 100 Mechanical Ventilator 40 08/28/18 23:14 92 14 100 Mechanical Ventilator 40 08/28/18 23:13 88 13 40 08/28/18 23:00 101.0 89 16 116/67 (83) 100 08/28/18 23:00 101.0 08/28/18 22:45 116/67 08/28/18 22:00 101.5 95 20 120/57 (78) 100 08/28/18 21:21 97 14 40 08/28/18 21:00 105 20 119/60 (79) 100 08/28/18 20:00 101.8 101 22 106/48 (67) 100 08/28/18 20:00 101 08/28/18 20:00 Mechanical Ventilator Mechanical Ventilator 08/28/18 20:00 40 08/28/18 19:15 100 13 99 Mechanical Ventilator 40 08/28/18 19:08 98 19 97 Mechanical Ventilator 40 08/28/18 19:00 95 19 113/58 (76) 100 08/28/18 18:59 95 19 40 08/28/18 18:00 99 19 126/57 (80) 100 08/28/18 17:00 100 19 124/58 (80) 100 08/28/18 16:58 99 17 40 08/28/18 16:00 40 08/28/18 16:00 101.6 101 19 134/63 (86) 100 08/28/18 16:00 Mechanical Ventilator Mechanical Ventilator 08/28/18 16:00 102 08/28/18 15:09 101 19 99 Mechanical Ventilator 40 08/28/18 15:00 103 19 129/65 (86) 100 08/28/18 14:59 101 19 100 Mechanical Ventilator 50 08/28/18 14:46 101 19 40 08/28/18 14:00 105 19 141/61 (87) 100 08/28/18 13:00 97.9 105 18 146/71 (96) 100 08/28/18 12:45 105 22 40 08/28/18 12:30 105 19 141/70 (93) 100 08/28/18 12:15 104 17 146/72 (96) 100 08/28/18 12:00 Mechanical Ventilator Mechanical Ventilator 08/28/18 12:00 105 08/28/18 12:00 40 08/28/18 12:00 104 16 137/69 (91) 100 08/28/18 11:45 99.0 103 17 132/71 (91) 100 I&O Intake and Output 08/28/18 08/29/18 18:59 06:59 Intake Total 265.912 ml 100 ml Output Total 1825 ml 4825 ml Balance -1559.088 ml -4725 ml IV Total 265.912 ml 100 ml Output Urine Total 1825 ml 925 ml Gastric Drainage Total 300 ml Other 3600 ml Drains: other Cardiovascular: RSR Respiratory: clear Abdomen: soft, flat, non-tender, present bowel sounds Extremities: no tenderness Laboratory Tests Test 08/29/18 04:45 08/29/18 06:00 08/29/18 08:00 08/29/18 10:51 White Blood Count 6.6 K/UL (4.8-10.8) Red Blood Count 3.53 M/UL (4.70-6.10) L Hemoglobin 10.6 G/DL (14.2-18.0) L Hematocrit 31.2 % (42.0-52.0) L Mean Corpuscular Volume 88 FL (80-99) Mean Corpuscular Hemoglobin 29.9 PG (27.0-31.0) Mean Corpuscular Hemoglobin Concent 33.9 G/DL (32.0-36.0) Red Cell Distribution Width 12.3 % (11.6-14.8) Platelet Count 126 K/UL (150-450) L Mean Platelet Volume 7.2 FL (6.5-10.1) Neutrophils (%) (Auto) % (45.0-75.0) Lymphocytes (%) (Auto) % (20.0-45.0) Monocytes (%) (Auto) % (1.0-10.0) Eosinophils (%) (Auto) % (0.0-3.0) Basophils (%) (Auto) % (0.0-2.0) Sodium Level 143 MMOL/L (136-145) Potassium Level 3.0 MMOL/L (3.5-5.1) L Chloride Level 103 MMOL/L (98-107) Carbon Dioxide Level 26 MMOL/L (21-32) Anion Gap 14 mmol/L (5-15) Blood Urea Nitrogen 71 mg/dL (7-18) H Creatinine 2.8 MG/DL (0.55-1.30) H Estimat Glomerular Filtration Rate mL/min (>60) Glucose Level 146 MG/DL (74-106) H Calcium Level 8.8 MG/DL (8.5-10.1) Total Bilirubin 0.7 MG/DL (0.2-1.0) Aspartate Amino Transf (AST/SGOT) 32 U/L (15-37) Alanine Aminotransferase (ALT/SGPT) 37 U/L (12-78) Alkaline Phosphatase 44 U/L (46-116) L Total Protein 7.3 G/DL (6.4-8.2) Albumin 2.5 G/DL (3.4-5.0) L Globulin 4.8 g/dL Albumin/Globulin Ratio 0.5 (1.0-2.7) L Urine Creatinine 85.6 MG/DL (30.0-125.0) 82.9 MG/DL (30.0-125.0) Urine Osmolality 450 mOsm/kg (429-449) H Urine Random Sodium < 20 mmol/L (20-110) L Arterial Blood pH 7.418 (7.350-7.450) Arterial Blood Partial Pressure CO2 42.8 mmHg (35.0-45.0) Arterial Blood Partial Pressure O2 138.4 mmHg (75.0-100.0) H Arterial Blood HCO3 27.0 mmol/L (22.0-26.0) H Arterial Blood Oxygen Saturation 97.2 % (95-100) Arterial Blood Base Excess 2.2 (-2-2) H Danny Test Positive Plan Problems: (1) Sepsis (2) Abdominal distension (gaseous) Assessment & Plan: Abdominal distention / discomfort. no n/v/f/c. +flatus. feels bloated. exam with mild distention/non tender CT - Mildly fluid-filled small bowel loops, nonspecific, No acute process otherwise, Postcholecystectomy changes. What are probably hepatic cysts adjacent to the gallbladder fossa mimics fluid in the gallbladder fossa on the axial views, but appear to be cysts on the coronal images. Nonetheless, biloma or other pathologic collection not completely excludable Multiple nonobstructive left renal calculi Sarmiento catheter Bilateral basilar pulmonary interstitial prominence, nonspecific Scoliosis and spondylosis KUB - Nonspecific prominent but not frankly dilated gas-filled small bowel loops , decreased from previous day's exam Satisfactory position right groin central venous catheter worsening respiratory status requiring intubation abdominal exam unchanged KUB okay no signs of obstruction more awake today labs improved. gas okay -no acute surgical intervention planned -Rx as written -appreciate ICU team care -wean sedation and vent as tolerated. -will follow clinically with exams thank you for allowing me to participate in patients care David Daley Aug 29, 2018 11:48
--- NOTE | 2018-08-29 12:00 | NUR ---
NURSE NOTES: Dr. Daley put patient on IMV PS 10. Dr. Fu at 11:55 put patient on Spontanous breathing PS 5. Patient tolerating well. ABG order obtained. Possible extubation.
--- NOTE | 2018-08-29 12:00 | Consultation ---
Consult Note Assessment/Plan dict plan ABG on CPAP/PS 5 extubate if satisfactory disc w surgeon, RN, multiple family members I will not follow; defer to Dr Harding and associates Vasu Fu MD Aug 29, 2018 12:00
--- NOTE | 2018-08-29 13:45 | Consultation ---
DATE OF CONSULTATION: 08/29/2018 PULMONARY CONSULTATION CONSULTING PHYSICIAN: Vasu Fu M.D. CHIEF COMPLAINT: Respiratory failure. HISTORY OF PRESENT ILLNESS: The patient was admitted one week ago with sepsis of unclear etiology. His initial chest x-ray was negative. He had a past history of stage IV melanoma, which has been treated with immunotherapy. Following admission, he was treated with antibiotics and other medications, but his condition declined and three days ago, he was intubated for respiratory failure and transferred to intensive care. He was found to have probable pneumonia and possible congestive heart failure. I was called to see him at the request of the family for second opinion regarding his respiratory status. I discussed this with the primary pulmonary physician today. PAST MEDICAL HISTORY: Includes adrenal insufficiency, malignant melanoma stage IV undergoing immunotherapy, hypertension, cholecystectomy, diabetes, hypothyroid, and hernia repair. ALLERGIES: None. MEDICATIONS: Reviewed. He is on . PHYSICAL EXAMINATION: GENERAL: The patient is alert and nods his head. He tries to speak, but has an oral endotracheal tube in place. The patient appears to have significant muscle wasting. VITAL SIGNS: Stable without pressors or sedatives. HEENT: Head, normocephalic. Mouth, oral endotracheal tube in place on ventilatory support. NECK: No jugular vein distention. CHEST: Clear. CARDIAC: Rhythm regular. ABDOMEN: Soft and nontender. EXTREMITIES: No clubbing, cyanosis, or edema. DIAGNOSTIC DATA: Chest x-ray shows improving right base infiltrate with the tube in good position. LABORATORY STUDIES: Reviewed. White count has come down to normal. IMPRESSION: 1. Acute respiratory failure. 2. Pneumonia. 3. Sepsis. 4. Adrenal insufficiency. 5. Metastatic melanoma. 6. Diabetes. 7. Acute renal failure. PLAN: The patient's respiratory status is improving. His spontaneous tidal volume, respiratory rate, and vital capacity are good and I expect he can be extubated today. We will check a blood gas on CPAP with pressure support 5, and if it is satisfactory, the tube will be removed. I have discussed this today with the surgeon and nurse at the bedside and with several family members including the and two daughters and a son. I will not plan to follow the patient further. He will continue to be followed by Dr. Harding, and his associates. Vasu Fu M.D. DR: JO-ANN JOB#: [id number] CC: Brook Calles M.D. ; FAX#: [phone]
--- NOTE | 2018-08-29 13:49 | General Progress Note ---
Assessment/Plan Problem List: (1) Sepsis ICD Codes: A41.9 - Sepsis, unspecified organism SNOMED: 70865872 (2) Diabetes ICD Codes: E11.9 - Type 2 diabetes mellitus without complications SNOMED: 18998120 (3) Hypothyroidism ICD Codes: E03.9 - Hypothyroidism, unspecified SNOMED: 92106375 (4) Adrenal insufficiency ICD Codes: E27.40 - Unspecified adrenocortical insufficiency SNOMED: 64116759, 497614505 (5) Abdominal distension (gaseous) ICD Codes: R14.0 - Abdominal distension (gaseous) SNOMED: 753965441 Assessment/Plan reduce IVHC to 50 mg IV every 8 hours continue Levothyroxine 75 mcg IV daily continue NISS discussed with daughter and son at bedside Subjective ROS Limited/Unobtainable: Yes Allergies: Coded Allergies: No Known Allergies (Unverified , 08/22/18) Subjective intubated in ICU daughter and son both are at bedside getting ready for extubation Objective Last 24 Hour Vital Signs Date Time Temp Pulse Resp B/P (MAP) Pulse Ox O2 Delivery O2 Flow Rate FiO2 08/29/18 13:38 99 21 99 Mechanical Ventilator 40 08/29/18 13:00 91 15 145/66 (92) 100 08/29/18 12:00 Mechanical Ventilator Mechanical Ventilator 08/29/18 12:00 100.0 90 14 144/68 (93) 100 08/29/18 12:00 94 08/29/18 12:00 94 17 130/66 (87) 100 08/29/18 11:00 83 18 40 08/29/18 11:00 90 17 144/68 (93) 100 08/29/18 10:00 84 18 107/55 (72) 98 08/29/18 09:00 84 18 40 08/29/18 09:00 86 18 110/58 (75) 98 08/29/18 08:00 98.7 80 17 118/68 (85) 98 08/29/18 08:00 80 08/29/18 08:00 Mechanical Ventilator Mechanical Ventilator 08/29/18 07:13 90 18 100 Mechanical Ventilator 40 08/29/18 07:09 88 18 40 08/29/18 07:05 95 18 100 Mechanical Ventilator 40 08/29/18 07:00 85 18 112/60 (77) 98 08/29/18 06:00 88 18 140/65 (90) 97 08/29/18 05:13 91 16 40 08/29/18 05:00 92 18 91/52 (65) 97 08/29/18 04:00 Mechanical Ventilator Mechanical Ventilator 08/29/18 04:00 98.8 97 17 107/62 (77) 98 08/29/18 04:00 95 08/29/18 03:00 99 14 128/63 (84) 99 08/29/18 02:51 87 18 100 Mechanical Ventilator 40 08/29/18 02:38 91 27 100 Mechanical Ventilator 40 08/29/18 02:34 88 27 40 08/29/18 02:00 79 14 143/62 (89) 99 08/29/18 01:06 92 15 40 08/29/18 01:00 98.7 79 14 129/58 (81) 99 08/29/18 00:00 101.0 89 15 103/55 (71) 99 08/29/18 00:00 89 08/29/18 00:00 Mechanical Ventilator Mechanical Ventilator 08/28/18 23:26 91 13 100 Mechanical Ventilator 40 08/28/18 23:14 92 14 100 Mechanical Ventilator 40 08/28/18 23:13 88 13 40 08/28/18 23:00 101.0 89 16 116/67 (83) 100 08/28/18 23:00 101.0 08/28/18 22:45 116/67 08/28/18 22:00 101.5 95 20 120/57 (78) 100 08/28/18 21:21 97 14 40 08/28/18 21:00 105 20 119/60 (79) 100 08/28/18 20:00 101.8 101 22 106/48 (67) 100 08/28/18 20:00 101 08/28/18 20:00 Mechanical Ventilator Mechanical Ventilator 08/28/18 20:00 40 08/28/18 19:15 100 13 99 Mechanical Ventilator 40 08/28/18 19:08 98 19 97 Mechanical Ventilator 40 08/28/18 19:00 95 19 113/58 (76) 100 08/28/18 18:59 95 19 40 08/28/18 18:00 99 19 126/57 (80) 100 08/28/18 17:00 100 19 124/58 (80) 100 08/28/18 16:58 99 17 40 08/28/18 16:00 40 08/28/18 16:00 101.6 101 19 134/63 (86) 100 08/28/18 16:00 Mechanical Ventilator Mechanical Ventilator 08/28/18 16:00 102 08/28/18 15:09 101 19 99 Mechanical Ventilator 40 08/28/18 15:00 103 19 129/65 (86) 100 08/28/18 14:59 101 19 100 Mechanical Ventilator 50 08/28/18 14:46 101 19 40 08/28/18 14:00 105 19 141/61 (87) 100 Intake and Output 08/28/18 08/29/18 18:59 06:59 Intake Total 265.912 ml 100 ml Output Total 1825 ml 4825 ml Balance -1559.088 ml -4725 ml IV Total 265.912 ml 100 ml Output Urine Total 1825 ml 925 ml Gastric Drainage Total 300 ml Other 3600 ml Laboratory Tests 08/29/18 04:45: White Blood Count 6.6, Red Blood Count 3.53L, Hemoglobin 10.6L, Hematocrit 31.2L , Mean Corpuscular Volume 88, Mean Corpuscular Hemoglobin 29.9, Mean Corpuscular Hemoglobin Concent 33.9, Red Cell Distribution Width 12.3, Platelet Count 126L, Mean Platelet Volume 7.2, Neutrophils (%) (Auto) , Lymphocytes (%) ( Auto) , Monocytes (%) (Auto) , Eosinophils (%) (Auto) , Basophils (%) (Auto) , Sodium Level 143, Potassium Level 3.0L, Chloride Level 103, Carbon Dioxide Level 26, Anion Gap 14, Blood Urea Nitrogen 71H, Creatinine 2.8H, Estimat Glomerular Filtration Rate , Glucose Level 146H, Calcium Level 8.8, Total Bilirubin 0.7, Aspartate Amino Transf (AST/SGOT) 32, Alanine Aminotransferase ( ALT/SGPT) 37, Alkaline Phosphatase 44L, Total Protein 7.3, Albumin 2.5L, Globulin 4.8, Albumin/Globulin Ratio 0.5L 08/29/18 06:00: Urine Creatinine 85.6 08/29/18 08:00: Urine Creatinine 82.9, Urine Osmolality 450H, Urine Random Sodium < 20L 08/29/18 10:51: Arterial Blood pH 7.418, Arterial Blood Partial Pressure CO2 42.8, Arterial Blood Partial Pressure O2 138.4H, Arterial Blood HCO3 27.0H, Arterial Blood Oxygen Saturation 97.2, Arterial Blood Base Excess 2.2H, Danny Test Positive 08/29/18 12:30: Arterial Blood pH 7.402, Arterial Blood Partial Pressure CO2 41.4, Arterial Blood Partial Pressure O2 143.6H, Arterial Blood HCO3 25.2, Arterial Blood Oxygen Saturation 98.1, Arterial Blood Base Excess 0.4, Danny Test Positive Height (Feet): 5 Height (Inches): 7.00 Weight (Pounds): 157 General Appearance: other - intubated EENT: other - ETT Cardiovascular: normal rate Respiratory/Chest: lungs clear Abdomen: normal bowel sounds Objective Current Medications Medications (Trade) Dose Ordered Sig/Elli Route PRN Reason Start Time Stop Time Status Last Admin Dose Admin Acetaminophen (Tylenol) 650 mg Q4H PRN RECTAL Mild Pain (Pain Scale 1-3) 08/26/18 11:00 09/25/18 10:59 08/28/18 21:35 Albuterol/ Ipratropium (Albuterol/ Ipratropium) 3 ml Q4HRT HHN 08/25/18 11:00 08/30/18 10:59 08/29/18 13:38 Albuterol/ Ipratropium (Albuterol/ Ipratropium) 3 ml Q6H PRN HHN Shortness of Breath 08/27/18 21:45 09/01/18 21:29 08/27/18 21:33 Chlorhexidine Gluconate (Gabriela-Hex 2%) 1 applic DAILY@2000 TOPIC 08/26/18 20:00 09/25/18 19:59 08/28/18 20:43 Dextrose (Dextrose 50%) 25 ml Q30M PRN IV Hypoglycemia 08/25/18 08:30 09/21/18 23:29 Dextrose (Dextrose 50%) 50 ml Q30M PRN IV Hypoglycemia 08/25/18 08:30 09/21/18 23:29 Dextrose/ Electrolytes 1,000 ml @ 75 mls/hr [id number] IV 08/29/18 09:00 09/28/18 08:59 08/29/18 08:38 Dopamine HCl/ Dextrose 250 ml @ 0 mls/hr Q24H IV 08/26/18 22:45 09/25/18 22:44 08/28/18 09:27 Fluconazole/ Sodium Chloride 100 ml @ 100 mls/hr Q24H IV 08/28/18 21:00 09/04/18 20:59 08/28/18 21:05 Guaifenesin/ Dextromethorphan (Robitussin DM Syrup) 5 ml Q6H PRN ORAL For Cough 08/25/18 08:30 09/23/18 08:29 Heparin Sodium (Porcine) (Heparin 5000 units/ml) 5,000 units EVERY 12 HOURS SUBQ 08/25/18 09:00 09/22/18 08:59 08/28/18 20:47 Hydrocortisone (Solu-CORTEF) 100 mg EVERY 8 HOURS IV 08/26/18 22:00 09/25/18 21:59 08/29/18 05:55 Insulin Aspart (NovoLOG) EVERY 6 HOURS SUBQ 08/25/18 12:00 09/22/18 00:00 08/28/18 23:37 Levothyroxine Sodium (Synthroid) 75 mcg DAILY IV 08/28/18 09:00 09/27/18 08:59 08/29/18 08:38 Lorazepam (Ativan 2mg/ml 1ml) 1 mg Q6H PRN IV For Anxiety 08/27/18 22:30 09/03/18 22:29 08/29/18 07:45 Meropenem 1 gm/ Sodium Chloride 100 ml @ 200 mls/hr Q12HR@0600,1800 IVPB 08/27/18 18:00 09/01/18 17:59 08/29/18 05:55 Ondansetron HCl (Zofran) 4 mg Q4H PRN IVP Nausea & Vomiting 08/25/18 09:15 09/22/18 17:03 08/27/18 20:40 Pantoprazole (Protonix) 40 mg DAILY ORAL 08/25/18 09:00 09/24/18 08:59 08/29/18 08:38 Vancomycin HCl (Vanco rx to dose) 1 ea DAILY PRN MISC Per rx protocol 08/27/18 12:00 09/26/18 11:59 Item Value Date Time Bedside Blood Glucose 113 mg/dl 08/29/18 1200 Bedside Blood Glucose 138 mg/dl H 08/29/18 0600 Bedside Blood Glucose 124 mg/dl H 08/29/18 0000 Bedside Blood Glucose 110 mg/dl 08/28/18 1800 Stanford Baca MD Aug 29, 2018 13:49
--- NOTE | 2018-08-29 13:50 | NUR ---
CASE MANAGEMENT: REVIEW SI: SEPSIS T 100.0 HR 99 RR 15 BP 145/66 SAT 100% MECH VENT FIO2 40 H/H 10.6/31.2 BUN 71 CR 2.8 IS: SOLU CORTEF IV Q8HR DIFLUCAN IV Q24HR MEROPENEM IV Q12HR DOPAMINE IV Q24HR ICU STATUS DCP: PATIENT IS FROM HOME
--- NOTE | 2018-08-29 14:00 | NUR ---
NURSE NOTES: Patient extubated RT at bedside. Dr. Bonilla at bedside. Family informed at bedside. RR 22 Saturating 100% Tolerating well. Will continue plan of care.
--- NOTE | 2018-08-29 14:00 | NUR ---
RESPIRATORY NOTE: Pt. extubated per dr. colin's order at 14:00. Breath sound good(clear/dim), no stridor, no respiratory distress. Put pt. on 40% cool aerosol. Will continue to monitor pt.
--- NOTE | 2018-08-29 14:07 | NUR ---
NURSE NOTES: Systolic BP of >[address] Bonilla. Doctor reduced steroid dose. Will continue plan of care.
[2018-08-29] MEDS: Acetaminophen 650 MG SUPP RECTAL PRN ×2 (14:27→20:09)
--- NOTE | 2018-08-29 14:41 | Infectious Diseases Prog Note ---
Assessment/Plan Assessment/Plan ASSESSMENT/PLAN: 1. sepsis, shock, fevers, adrenal insufficiency, ileus, steroids, leukocytosis, bc - 1/4 die attaching machine tender likely contaminant chest x-ray now with pna, ? hcap, ? aspiration, respiratory failure, on vent , ROSA likely secondary to sepsis/hypotension, + fungemia risk - meropenem and vancomycin, diflucan started for empiric fungemia treatment - f/u on cultures - steroids - monitor labs, bp, temps, chest x-ray - icu care, bp support, vent support - still febrile but leukocytosis better - may need CT imaging if fevers persist and clinically stable for CT 2. The patient has a history of adrenal insufficiency. 3. History of melanoma in remission. 4. History of biliary sepsis, status post cholecystectomy. 5. Hypothyroidism. 6. Hypertension. 7. Diabetes. 8. History of cancer, which I believe is the melanoma. 9. Past medical history noted. 10. No known drug allergies. 11. Social history is negative. 12. Family history is negative. 13. MAR was noted. 14. Case was discussed with RN. 15. Case was discussed with Dr. Bonilla. 16. Case was discussed with the patient's family. 17. The patient was seen in the emergency room 18. The patient will need ICU care. 19. Continue treatment per primary consultants. 20. Notes and records were noted. 21. Orders were entered. 22. Case was discussed with pharmacy. 23. Skin care protocol. Subjective Constitutional: Reports: fever, other - extubated HEENT: Reports: congestion Respiratory: Reports: shortness of breath Cardiovascular: Denies: chest pain Gastrointestinal/Abdominal: Denies: nausea, vomiting, diarrhea Genitourinary: Reports: other - + reyes Neurologic: Reports: other - responsive Psychiatric: Denies: depression Skin: Denies: rash Hematologic: Denies: bleeding Musculoskeletal: Denies: pain Allergies: Coded Allergies: No Known Allergies (Unverified , 08/22/18) Objective Vital Signs Last 24 Hour Vital Signs Date Time Temp Pulse Resp B/P (MAP) Pulse Ox O2 Delivery O2 Flow Rate FiO2 08/29/18 14:00 110 15 168/70 (102) 100 08/29/18 14:00 Venturi Mask 12.0 40 08/29/18 13:55 103 18 100 Mechanical Ventilator 40 12/24/18 13:38 99 21 99 Mechanical Ventilator 40 08/29/18 13:00 91 15 145/66 (92) 100 08/29/18 12:00 Mechanical Ventilator Mechanical Ventilator 08/29/18 12:00 100.0 90 14 144/68 (93) 100 08/29/18 12:00 94 08/29/18 12:00 94 17 130/66 (87) 100 08/29/18 11:00 83 18 40 08/29/18 11:00 90 17 144/68 (93) 100 08/29/18 10:00 84 18 107/55 (72) 98 08/29/18 09:00 84 18 40 08/29/18 09:00 86 18 110/58 (75) 98 08/29/18 08:00 98.7 80 17 118/68 (85) 98 08/29/18 08:00 80 08/29/18 08:00 Mechanical Ventilator Mechanical Ventilator 08/29/18 07:13 90 18 100 Mechanical Ventilator 40 08/29/18 07:09 88 18 40 08/29/18 07:05 95 18 100 Mechanical Ventilator 40 08/29/18 07:00 85 18 112/60 (77) 98 08/29/18 06:00 88 18 140/65 (90) 97 08/29/18 05:13 91 16 40 08/29/18 05:00 92 18 91/52 (65) 97 08/29/18 04:00 Mechanical Ventilator Mechanical Ventilator 08/29/18 04:00 98.8 97 17 107/62 (77) 98 08/29/18 04:00 95 08/29/18 03:00 99 14 128/63 (84) 99 08/29/18 02:51 87 18 100 Mechanical Ventilator 40 08/29/18 02:38 91 27 100 Mechanical Ventilator 40 08/29/18 02:34 88 27 40 08/29/18 02:00 79 14 143/62 (89) 99 08/29/18 01:06 92 15 40 08/29/18 01:00 98.7 79 14 129/58 (81) 99 08/29/18 00:00 101.0 89 15 103/55 (71) 99 08/29/18 00:00 89 08/29/18 00:00 Mechanical Ventilator Mechanical Ventilator 08/28/18 23:26 91 13 100 Mechanical Ventilator 40 08/28/18 23:14 92 14 100 Mechanical Ventilator 40 08/28/18 23:13 88 13 40 08/28/18 23:00 101.0 89 16 116/67 (83) 100 08/28/18 23:00 101.0 18 22:45 116/67 08/28/18 22:00 101.5 95 20 120/57 (78) 100 08/28/18 21:21 97 14 40 08/28/18 21:00 105 20 119/60 (79) 100 08/28/18 20:00 101.8 101 22 106/48 (67) 100 08/28/18 20:00 101 08/28/18 20:00 Mechanical Ventilator Mechanical Ventilator 08/28/18 20:00 40 08/28/18 19:15 100 13 99 Mechanical Ventilator 40 08/28/18 19:08 98 19 97 Mechanical Ventilator 40 08/28/18 19:00 95 19 113/58 (76) 100 08/28/18 18:59 95 19 40 08/28/18 18:00 99 19 126/57 (80) 100 08/28/18 17:00 100 19 124/58 (80) 100 08/28/18 16:58 99 17 40 08/28/18 16:00 40 08/28/18 16:00 101.6 101 19 134/63 (86) 100 08/28/18 16:00 Mechanical Ventilator Mechanical Ventilator 08/28/18 16:00 102 08/28/18 15:09 101 19 99 Mechanical Ventilator 40 08/28/18 15:00 103 19 129/65 (86) 100 08/28/18 14:59 101 19 100 Mechanical Ventilator 50 08/28/18 14:46 101 19 40 Height (Feet): 5 Height (Inches): 7.00 Weight (Pounds): 157 General Appearance: other - extubated, some sob, on bm, more responsive, no pressors HEENT: normocephalic, atraumatic, anicteric Respiratory/Chest: crackles/rales, rhonchi - bilaterally Cardiovascular: normal rate, regular rhythm, no gallop/murmur, no JVD Abdomen: normal bowel sounds, soft, non tender, no organomegaly, non distended Genitourinary: other - + reyes - urine clear Extremities: no cyanosis Skin: no rash Neurologic/Psychiatric: lacing operator II-XII grossly normal, alert, responsive Lymphatic: no neck adenopathy Musculoskeletal: no effusion Objective CT scan of abdomen and pelvis: Impression: Mildly fluid-filled small bowel loops, nonspecific No acute process otherwise Postcholecystectomy changes. What are probably hepatic cysts adjacent to the gallbladder fossa mimics fluid in the gallbladder fossa on the axial views, but appear to be cysts on the coronal images. Nonetheless, biloma or other pathologic collection not completely excludable Multiple nonobstructive left renal calculi Reyes catheter Bilateral basilar pulmonary interstitial prominence, nonspecific Scoliosis and spondylosis Chest x-ray - nad x 2, reports noted Chest x-ray - 08/25/18 Impression: Interval worsening of aeration with development of dense airspace opacities in the medial right mid/lower lung and patchy opacities in the right upper lung concerning for multifocal pneumonia. Perihilar interstitial opacities in the left raise question for a degree of underlying congestion/fluid overload. Clinical correlation/follow-up recommended. Findings discussed with ordering physician Dr. Bonilla at time of dictation of the final report. Chest - x-ray - 08/26/18 - Procedure: XRAY Chest 1v Indication: Shortness of breath Technique: One view of the chest Comparison: 08/25/2018 Findings: Less optimal inspiration currently Extensive bilateral infiltrates versus edema appear unchanged on the right, slightly worse on the left. There may be some pleural fluid on the left. The heart size is normal Impression: Bilateral infiltrates again demonstrated, slightly worse on the left over one Chest x-ray - 08/28 - COMPARISON: Chest x-rays dated 08/27/18 FINDINGS: Lungs: Patchy perihilar opacities, which may represent pulmonary edema versus infiltrates, not significantly changed compared to the prior exam. Pleural space: Unremarkable. The costophrenic angles are sharp. No visible pneumothorax. Heart: Unremarkable. No cardiomegaly. Mediastinum: Unremarkable. Bones/joints: Unremarkable. Tubes, lines and devices: Stable positioning of the endotracheal tube and nasogastric tube. EKG leads overlie the thorax. IMPRESSION: No significant interval change in the patchy perihilar opacities, which may represent pulmonary edema versus infiltrates. Microbiology Date/Time Source Procedure Growth Status 08/26/18 15:38 Blood Blood Culture - Preliminary NO GROWTH AFTER 48 HOURS Resulted 08/26/18 11:45 Sputum Gram Stain - Final Resulted 08/26/18 11:45 Sputum Sputum Culture - Preliminary NO GROWTH AFTER 24 HOURS Resulted 08/24/18 08:00 Stool Stool Culture - Final NO SALMONELLA,SHIGELLA,OR CAMPYLOBACT... Complete 08/25/18 16:03 Indwelling Cath Urine Culture - Final NO GROWTH AFTER 48 HOURS Complete 08/22/18 20:30 Rectum VRE Culture - Final NO VANCOMYCIN RESISTANT ENTEROCOCCUS ... Complete 08/22/18 20:30 Rectum - Final NO CARBAPENEM-RESISTANT ENTEROBACTERI... Complete Microbiology Date/Time Source Procedure Growth Status 08/26/18 15:38 Blood Blood Culture - Preliminary NO GROWTH AFTER 48 HOURS Resulted 08/26/18 15:30 Blood Blood Culture - Preliminary NO GROWTH AFTER 48 HOURS Resulted Laboratory Tests Test 08/29/18 04:45 08/29/18 06:00 08/29/18 08:00 08/29/18 10:51 White Blood Count 6.6 K/UL (4.8-10.8) Red Blood Count 3.53 M/UL (4.70-6.10) L Hemoglobin 10.6 G/DL (14.2-18.0) L Hematocrit 31.2 % (42.0-52.0) L Mean Corpuscular Volume 88 FL (80-99) Mean Corpuscular Hemoglobin 29.9 PG (27.0-31.0) Mean Corpuscular Hemoglobin Concent 33.9 G/DL (32.0-36.0) Red Cell Distribution Width 12.3 % (11.6-14.8) Platelet Count 126 K/UL (150-450) L Mean Platelet Volume 7.2 FL (6.5-10.1) Neutrophils (%) (Auto) % (45.0-75.0) Lymphocytes (%) (Auto) % (20.0-45.0) Monocytes (%) (Auto) % (1.0-10.0) Eosinophils (%) (Auto) % (0.0-3.0) Basophils (%) (Auto) % (0.0-2.0) Sodium Level 143 MMOL/L (136-145) Potassium Level 3.0 MMOL/L (3.5-5.1) L Chloride Level 103 MMOL/L (98-107) Carbon Dioxide Level 26 MMOL/L (21-32) Anion Gap 14 mmol/L (5-15) Blood Urea Nitrogen 71 mg/dL (7-18) H Creatinine 2.8 MG/DL (0.55-1.30) H Estimat Glomerular Filtration Rate mL/min (>60) Glucose Level 146 MG/DL (74-106) H Calcium Level 8.8 MG/DL (8.5-10.1) Total Bilirubin 0.7 MG/DL (0.2-1.0) Aspartate Amino Transf (AST/SGOT) 32 U/L (15-37) Alanine Aminotransferase (ALT/SGPT) 37 U/L (12-78) Alkaline Phosphatase 44 U/L (46-116) L Total Protein 7.3 G/DL (6.4-8.2) Albumin 2.5 G/DL (3.4-5.0) L Globulin 4.8 g/dL Albumin/Globulin Ratio 0.5 (1.0-2.7) L Urine Creatinine 85.6 MG/DL (30.0-125.0) 82.9 MG/DL (30.0-125.0) Urine Osmolality 450 mOsm/kg (429-449) H Urine Random Sodium < 20 mmol/L (20-110) L Arterial Blood pH 7.418 (7.350-7.450) Arterial Blood Partial Pressure CO2 42.8 mmHg (35.0-45.0) Arterial Blood Partial Pressure O2 138.4 mmHg (75.0-100.0) H Arterial Blood HCO3 27.0 mmol/L (22.0-26.0) H Arterial Blood Oxygen Saturation 97.2 % (95-100) Arterial Blood Base Excess 2.2 (-2-2) H Danny Test Positive Test 08/29/18 12:30 Arterial Blood pH 7.402 (7.350-7.450) Arterial Blood Partial Pressure CO2 41.4 mmHg (35.0-45.0) Arterial Blood Partial Pressure O2 143.6 mmHg (75.0-100.0) H Arterial Blood HCO3 25.2 mmol/L (22.0-26.0) Arterial Blood Oxygen Saturation 98.1 % (95-100) Arterial Blood Base Excess 0.4 (-2-2) Danny Test Positive Current Medications Medications (Trade) Dose Ordered Sig/Elli Route PRN Reason Start Time Stop Time Status Last Admin Dose Admin Acetaminophen (Tylenol) 650 mg Q4H PRN RECTAL Mild Pain (Pain Scale 1-3) 08/26/18 11:00 09/25/18 10:59 08/29/18 14:27 Albuterol/ Ipratropium (Albuterol/ Ipratropium) 3 ml Q4HRT HHN 08/25/18 11:00 08/30/18 10:59 08/29/18 13:38 Albuterol/ Ipratropium (Albuterol/ Ipratropium) 3 ml Q6H PRN HHN Shortness of Breath 08/27/18 21:45 09/01/18 21:29 08/27/18 21:33 Chlorhexidine Gluconate (Gabriela-Hex 2%) 1 applic DAILY@2000 TOPIC 08/26/18 20:00 09/25/18 19:59 08/28/18 20:43 Dextrose (Dextrose 50%) 25 ml Q30M PRN IV Hypoglycemia 08/25/18 08:30 09/21/18 23:29 Dextrose (Dextrose 50%) 50 ml Q30M PRN IV Hypoglycemia 08/25/18 08:30 09/21/18 23:29 Dextrose/ Electrolytes 1,000 ml @ 75 mls/hr Q23A56H IV 08/29/18 09:00 09/28/18 08:59 08/29/18 08:38 Dopamine HCl/ Dextrose 250 ml @ 0 mls/hr Q24H IV 08/26/18 22:45 09/25/18 22:44 08/28/18 09:27 Fluconazole/ Sodium Chloride 100 ml @ 100 mls/hr Q24H IV 08/28/18 21:00 09/04/18 20:59 08/28/18 21:05 Guaifenesin/ Dextromethorphan (Robitussin DM Syrup) 5 ml Q6H PRN ORAL For Cough 08/25/18 08:30 09/23/18 08:29 Heparin Sodium (Porcine) (Heparin 5000 units/ml) 5,000 units EVERY 12 HOURS SUBQ 08/25/18 09:00 09/22/18 08:59 08/28/18 20:47 Hydrocortisone (Solu-CORTEF) 50 mg EVERY 8 HOURS IV 08/29/18 14:00 09/25/18 21:59 08/29/18 14:27 Insulin Aspart (NovoLOG) EVERY 6 HOURS SUBQ 08/25/18 12:00 09/22/18 00:00 08/28/18 23:37 Levothyroxine Sodium (Synthroid) 75 mcg DAILY IV 08/28/18 09:00 09/27/18 08:59 08/29/18 08:38 Lorazepam (Ativan 2mg/ml 1ml) 1 mg Q6H PRN IV For Anxiety 08/27/18 22:30 09/03/18 22:29 08/29/18 07:45 Meropenem 1 gm/ Sodium Chloride 100 ml @ 200 mls/hr Q12HR@0600,1800 IVPB 08/27/18 18:00 09/01/18 17:59 08/29/18 05:55 Ondansetron HCl (Zofran) 4 mg Q4H PRN IVP Nausea & Vomiting 08/25/18 09:15 09/22/18 17:03 08/27/18 20:40 Pantoprazole (Protonix) 40 mg DAILY ORAL 08/25/18 09:00 09/24/18 08:59 08/29/18 08:38 Vancomycin HCl (Vanco rx to dose) 1 ea DAILY PRN MISC Per rx protocol 08/27/18 12:00 09/26/18 11:59 Treasure Vargas MD Aug 29, 2018 14:41
--- NOTE | 2018-08-29 15:47 | Pulmonolgy Critical Care Note ---
Critical Care - Asmt/Plan Assessment/Plan: Pulmonary CC Progress Note HISTORY OF PRESENT ILLNESS: The patient was admitted one week ago with sepsis of unclear etiology. His initial chest x-ray was negative. He had a past history of stage IV melanoma, which has been treated with immunotherapy. Following admission, he was treated with antibiotics and other medications, but his condition declined and three days ago, he was intubated for respiratory failure and transferred to intensive care. He was found to have probable pneumonia and possible congestive heart failure. I was called to see him at the request of the family for second opinion regarding his respiratory status. I discussed this with the primary pulmonary physician today. PAST MEDICAL HISTORY: Includes adrenal insufficiency, malignant melanoma stage IV undergoing immunotherapy, hypertension, cholecystectomy, diabetes, hypothyroid, and hernia repair. ALLERGIES: None. MEDICATIONS: Reviewed. PHYSICAL EXAMINATION: VSS noted GENERAL: The patient is alert and nods his head. He tries to speak, but has an oral endotracheal tube in place. The patient appears to have significant muscle wasting. VITAL SIGNS: Stable without pressors or sedatives. HEENT: Head, normocephalic. Mouth, oral endotracheal tube in place on ventilatory support. NECK: No jugular vein distention. CHEST: Clear. CARDIAC: Rhythm regular. ABDOMEN: Soft and nontender. EXTREMITIES: No clubbing, cyanosis, or edema. DIAGNOSTIC DATA: Chest x-ray shows improving right base infiltrate with the tube in good position. LABORATORY STUDIES: Reviewed. White count has come down to normal. IMPRESSION: 1. Acute respiratory failure. 2. Pneumonia. 3. Sepsis. 4. Adrenal insufficiency. 5. Metastatic melanoma. 6. Diabetes. 7. Acute renal failure. PLAN: The patient's respiratory status is improving. His spontaneous tidal volume, respiratory rate, and vital capacity are good and I expect he can be extubated today. We will check a blood gas on CPAP with pressure support 5, and if it is satisfactory, the tube will be removed. Critical Care - Objective Last 24 Hour Vital Signs Date Time Temp Pulse Resp B/P (MAP) Pulse Ox O2 Delivery O2 Flow Rate FiO2 08/29/18 14:57 100.0 08/29/18 14:00 110 15 168/70 (102) 100 08/29/18 14:00 Venturi Mask 12.0 40 08/29/18 13:55 103 18 100 Mechanical Ventilator 40 08/29/18 13:38 99 21 99 Mechanical Ventilator 40 08/29/18 13:00 91 15 145/66 (92) 100 08/29/18 12:00 Mechanical Ventilator Mechanical Ventilator 08/29/18 12:00 100.0 90 14 144/68 (93) 100 08/29/18 12:00 94 08/29/18 12:00 94 17 130/66 (87) 100 08/29/18 11:00 83 18 40 08/29/18 11:00 90 17 144/68 (93) 100 08/29/18 10:00 84 18 107/55 (72) 98 08/29/18 09:00 84 18 40 08/29/18 09:00 86 18 110/58 (75) 98 08/29/18 08:00 98.7 80 17 118/68 (85) 98 08/29/18 08:00 80 08/29/18 08:00 Mechanical Ventilator Mechanical Ventilator 08/29/18 07:13 90 18 100 Mechanical Ventilator 40 08/29/18 07:09 88 18 40 08/29/18 07:05 95 18 100 Mechanical Ventilator 40 08/29/18 07:00 85 18 112/60 (77) 98 08/29/18 06:00 88 18 140/65 (90) 97 08/29/18 05:13 91 16 40 08/29/18 05:00 92 18 91/52 (65) 97 08/29/18 04:00 Mechanical Ventilator Mechanical Ventilator 08/29/18 04:00 98.8 97 17 107/62 (77) 98 08/29/18 04:00 95 08/29/18 03:00 99 14 128/63 (84) 99 08/29/18 02:51 87 18 100 Mechanical Ventilator 40 08/29/18 02:38 91 27 100 Mechanical Ventilator 40 08/29/18 02:34 88 27 40 08/29/18 02:00 79 14 143/62 (89) 99 08/29/18 01:06 92 15 40 08/29/18 01:00 98.7 79 14 129/58 (81) 99 08/29/18 00:00 101.0 89 15 103/55 (71) 99 08/29/18 00:00 89 08/29/18 00:00 Mechanical Ventilator Mechanical Ventilator 08/28/18 23:26 91 13 100 Mechanical Ventilator 40 08/28/18 23:14 92 14 100 Mechanical Ventilator 40 08/28/18 23:13 88 13 40 08/28/18 23:00 101.0 89 16 116/67 (83) 100 08/28/18 22:45 116/67 08/28/18 22:00 101.5 95 20 120/57 (78) 100 08/28/18 21:21 97 14 40 08/28/18 21:00 105 20 119/60 (79) 100 08/28/18 20:00 101.8 101 22 106/48 (67) 100 08/28/18 20:00 101 08/28/18 20:00 Mechanical Ventilator Mechanical Ventilator 08/28/18 20:00 40 08/28/18 19:15 100 13 99 Mechanical Ventilator 40 08/28/18 19:08 98 19 97 Mechanical Ventilator 40 08/28/18 19:00 95 19 113/58 (76) 100 08/28/18 18:59 95 19 40 08/28/18 18:00 99 19 126/57 (80) 100 08/28/18 17:00 100 19 124/58 (80) 100 08/28/18 16:58 99 17 40 08/28/18 16:00 40 08/28/18 16:00 101.6 101 19 134/63 (86) 100 08/28/18 16:00 Mechanical Ventilator Mechanical Ventilator 08/28/18 16:00 102 Accucheck: 113 Critical Care - Subjective ROS Limited/Unobtainable: No FI02: 40 Vent Support Breath Rate: 12 Vent Support Mode: AC Vent Tidal Volume: 500 Sputum Amount: Small PEEP: 5.0 PIP: 18 Tube Feeding Amount: 10 I&O: Intake and Output 08/28/18 08/29/18 18:59 06:59 Intake Total 265.912 ml 100 ml Output Total 1825 ml 4825 ml Balance -1559.088 ml -4725 ml IV Total 265.912 ml 100 ml Output Urine Total 1825 ml 925 ml Gastric Drainage Total 300 ml Other 3600 ml ET-Tube: 7.5 ET Position: 24 Nathaniel Villegas MD Aug 29, 2018 15:46
--- NOTE | 2018-08-29 16:00 | NUR ---
NURSE NOTES: TUrned and repositioned. No new orders at this time. Will continue plan of care.
--- NOTE | 2018-08-29 18:00 | NUR ---
NURSE NOTES: turned and repositioned. family at bedside. Oral care given. Patient more responsive. A&O x2-3 at times. Opens eyes to name. follows simple command. Answers questions approrpiatetly. No new orders at this time. Will continue plan of care.
--- NOTE | 2018-08-29 19:05 | NUR ---
HAND-OFF: Report given to Heidy RN using sbar. Vital signs stable. No distress noted
--- NOTE | 2018-08-29 19:06 | NUR ---
NURSE NOTES: Endorsement received from [facility]. Patient opens eyes to voice, follows simple commands, able to communicate needs. Receiving oxygen 12L 40% per venturi. With right upper arm PICC, ongoing D5 1/2 NS with 40 KCl at 50ml/hr. Sarmiento catheter connected to urimeter. With temp of 104F rectally, patient on cooling mattress. Head of bed elevated. Bed locked and in low position. Bed alarm on. Daughter at bedside.
--- NOTE | 2018-08-29 20:00 | NUR ---
NURSE NOTES: Sponge bath done, PRN tylenol per rectum given.
[2018-08-29] MEDS: Dyna-Hex 2% Top Sol 2oz TOPIC SCH (20:08)
--- NOTE | 2018-08-29 22:30 | NUR ---
NURSE NOTES: Patient seen and examined by Dr. Casiano. No new order at this time.
[2018-08-29] MEDS: DOPamine 400mg/250ml 250 ML IV SCH (22:40)
--- NOTE | 2018-08-29 23:00 | Progress Note ---
DATE: 08/29/2018 CARDIOLOGY PROGRESS NOTE SUBJECTIVE: Family members at bedside. Conference undertaken. The patient's condition remains critical. Prognosis guarded. The patient is undergoing weaning efforts and extubation is being considered at this time. The patient is off pressors. OBJECTIVE: GENERAL: Fully alert. VITAL SIGNS: Blood pressure parameters are now elevated up to 160/80, heart rate 85, and respiratory rate 18. LUNGS: Coarse breath sounds. Scattered rhonchi. CARDIAC: Regular rhythm and rate. Normal S1 and S2. ABDOMEN: Soft. No guarding or rebound. EXTREMITIES: No edema. LABORATORY DATA: Cultures remain negative. White count 6.6 and hemoglobin 10.6. ABG - 7.48, 35, and 100. Sodium 143, potassium 3, bicarbonate 26, BUN , and creatinine 2.8. Albumin 2.5. IMPRESSION: 1. Pneumonia, possible aspiration. 2. Acute renal failure. 3. Severe protein-calorie malnutrition. 4. Adrenocortical insufficiency. 5. Recovering shock. 6. Hypokalemia. PLAN: 1. Replace potassium. 2. Recheck magnesium. 3. Continue weaning efforts. Fluid extubation planned. 4. Protein supplement by feeding tube at this time. 5. Swallow evaluation to follow once extubated. 6. Antimicrobials per Infectious Disease biz[employer] consultant. 7. DVT and stress ulcer prophylaxis. 8. Decreasing doses of steroids at this time in view of an elevated blood pressure readings and improvement in shock. Nathaniel Bonilla M.D. DR: ERIKA JOB#: [id number] CC:
[2018-08-30] VITALS (24 sets, daily range): BP systolic 99–151; BP diastolic 51–77
--- NOTE | 2018-08-30 | NUR ---
NURSE NOTES: Repositioned patient. Secretions suctioned per nasotracheal.
--- NOTE | 2018-08-30 03:00 | NUR ---
NURSE NOTES: Patient awake, keeps asking for cups of ice chips. Explained that Dr. Daley wants to keep him strict NPO. Keeps yelling and threatening nurse. Addendum: 08/30/18 at 0639 by YUNIEL GARCIAS RN INCORRECT PATIENT
[2018-08-30] MEDS: Albuterol/Ipratropium 3ml neb HHN SCH ×3 (03:34→10:34)
--- NOTE | 2018-08-30 04:00 | NUR ---
NURSE NOTES: Patient asleep. Secretions suctioned. Afebrile
--- NOTE | 2018-08-30 05:00 | NUR ---
NURSE NOTES: Oral care, bed bath, change of linens done.
[2018-08-30 05:23] LABS: HEMATOCRIT 31.4 % (42.0-52.0); HEMOGLOBIN 10.7 G/DL (14.2-18.0); MEAN CORPUSCULAR VOLUME 90 FL (80-99); PLATELET COUNT 150 K/UL (150-450); RED BLOOD COUNT 3.48 M/UL (4.70-6.10); RED CELL DISTRIBUTION WIDTH 13.1 % (11.6-14.8); WHITE BLOOD COUNT 12.9 K/UL (4.8-10.8)
[2018-08-30] MEDS: Hydrocortisone 100mg Inj IV SCH ×3 (05:26→22:02)
[2018-08-30] MEDS: NovoLOG Insulin Flexpen SUBQ SCH ×4 (05:29→18:00)
[2018-08-30 05:44] LABS: ANION GAP 14 mmol/L (5-15); BLOOD UREA NITROGEN 77 mg/dL (7-18); CALCIUM 8.9 MG/DL (8.5-10.1); CARBON DIOXIDE 25 MMOL/L (21-32); CHLORIDE 110 MMOL/L (98-107); CREATININE 2.4 MG/DL (0.55-1.30); POTASSIUM 3.7 MMOL/L (3.5-5.1); SODIUM 149 MMOL/L (136-145)
--- NOTE | 2018-08-30 07:13 | NUR ---
HAND-OFF: Report given to FAY New.
--- NOTE | 2018-08-30 08:00 | NUR ---
NURSE NOTES: Received patient alert & oriented x3. patient asking for coffee. Bedside swallow of ice chips was successful, no cough or dysphagia noted when swallowing. HOB at 90 degrees to prevent aspiration. Saturating 100% on venturi mask. Lung sounds diminished bilaterally. manager strategic development showing ST HR at 108. Temperature controlled with cooling blanket at 98.8 at the moment. Patient doesnt complain of any pain or discomofrt. Repositioned for comfort. HOB elevated. Active range of motion intact. R upper arm picc line. NS 40 meq at 50 cc/hr. No new orders at this time. Will continue plan of care.
[2018-08-30] MEDS: Heparin 5000 units/ml inj SUBQ SCH ×2 (09:00→20:59)
--- NOTE | 2018-08-30 09:53 | Nephrology Progress Note ---
Assessment/Plan Problem List: (1) Respiratory failure (2) ROSA (acute kidney injury) (3) Sepsis (4) Adrenal insufficiency (5) Healthcare-associated pneumonia Plan cxr not better may represent pneumonia rather than chf, will stop lasix for now, replace K, now off pressors, hydrate , Lm low likely prerenal, extubated improving Subjective Constitutional: Reports: weakness, other - leg cramp HEENT: Reports: no symptoms Genitourinary: Reports: no symptoms Neurologic/Psychiatric: Reports: no symptoms Objective Objective Last 24 Hour Vital Signs Date Time Temp Pulse Resp B/P (MAP) Pulse Ox O2 Delivery O2 Flow Rate FiO2 08/30/18 09:00 105 21 130/70 (90) 99 08/30/18 08:00 110 08/30/18 08:00 Venturi Mask 12.0 Venturi Mask Venturi Mask 08/30/18 08:00 99.9 108 21 132/72 (92) 98 08/30/18 07:00 110 21 139/73 (95) 98 08/30/18 06:58 Venturi Mask 12.0 40 08/30/18 06:58 114 22 Venturi Mask 12.0 40 08/30/18 06:57 111 22 99 Venturi Mask 40 08/30/18 06:50 112 22 99 Venturi Mask 12.0 40 08/30/18 06:00 99.7 105 21 122/55 (77) 98 08/30/18 05:00 99.7 112 21 126/65 (85) 97 08/30/18 04:00 111 08/30/18 04:00 Venturi Mask 12.0 Venturi Mask Venturi Mask 08/30/18 04:00 99.7 107 24 125/66 (85) 97 08/30/18 03:34 107 24 95 Venturi Mask 40 08/30/18 03:00 99.7 106 24 111/57 (75) 96 08/30/18 02:00 99.7 112 24 99/54 (69) 94 08/30/18 01:18 Venturi Mask 12.0 40 08/30/18 01:18 97 Venturi Mask 12.0 40 08/30/18 01:00 100.1 115 24 108/51 (70) 97 08/30/18 00:00 Venturi Mask 12.0 Venturi Mask Venturi Mask 08/30/18 00:00 99.0 118 25 108/60 (76) 95 08/30/18 00:00 115 08/29/18 23:32 116 24 97 Venturi Mask 40 08/29/18 23:19 Venturi Mask 40 08/29/18 23:19 115 24 98 Venturi Mask 40 08/29/18 23:00 99.0 102 21 142/71 (94) 99 08/29/18 22:40 153/76 08/29/18 22:00 101.0 106 23 153/76 (101) 100 08/29/18 21:00 103.0 123 26 138/81 (100) 99 08/29/18 20:55 103.0 08/29/18 20:00 104.0 115 27 169/73 (105) 100 08/29/18 20:00 126 08/29/18 20:00 Venturi Mask 12.0 Venturi Mask Venturi Mask 08/29/18 19:42 118 22 100 Venturi Mask 40 08/29/18 19:30 Venturi Mask 40 08/29/18 19:30 102 22 100 Venturi Mask 40 08/29/18 19:30 100 Venturi Mask 40 08/29/18 19:00 89 15 144/65 (91) 100 08/29/18 18:00 90 15 148/68 (94) 100 08/29/18 17:00 98 15 165/72 (103) 100 08/29/18 16:37 101 23 100 Venturi Mask 40 08/29/18 16:29 100 21 97 Venturi Mask 40 08/29/18 16:00 100.0 95 14 155/67 (96) 100 08/29/18 16:00 105 08/29/18 16:00 Venturi Mask 12.0 Venturi Mask Venturi Mask 08/29/18 15:00 98 15 161/69 (99) 100 08/29/18 14:00 110 15 168/70 (102) 100 08/29/18 14:00 Venturi Mask 12.0 40 08/29/18 13:55 103 18 100 Mechanical Ventilator 40 08/29/18 13:38 99 21 99 Mechanical Ventilator 40 08/29/18 13:00 91 15 145/66 (92) 100 08/29/18 12:00 Mechanical Ventilator Mechanical Ventilator 08/29/18 12:00 100.0 90 14 144/68 (93) 100 08/29/18 12:00 94 08/29/18 12:00 94 17 130/66 (87) 100 08/29/18 11:00 83 18 40 08/29/18 11:00 90 17 144/68 (93) 100 08/29/18 10:00 84 18 107/55 (72) 98 Intake and Output 08/29/18 08/30/18 19:00 07:00 Intake Total 110 ml 650 ml Output Total 480 ml 925 ml Balance -370 ml -275 ml IV Total 50 ml 650 ml Tube Feeding 60 ml Output Urine Total 480 ml 925 ml Laboratory Tests 08/29/18 10:51: Arterial Blood pH 7.418, Arterial Blood Partial Pressure CO2 42.8, Arterial Blood Partial Pressure O2 138.4H, Arterial Blood HCO3 27.0H, Arterial Blood Oxygen Saturation 97.2, Arterial Blood Base Excess 2.2H, Danny Test Positive 08/29/18 12:30: Arterial Blood pH 7.402, Arterial Blood Partial Pressure CO2 41.4, Arterial Blood Partial Pressure O2 143.6H, Arterial Blood HCO3 25.2, Arterial Blood Oxygen Saturation 98.1, Arterial Blood Base Excess 0.4, Danny Test Positive 08/29/18 15:00: Arterial Blood pH 7.488H, Arterial Blood Partial Pressure CO2 35.7, Arterial Blood Partial Pressure O2 100.9H, Arterial Blood HCO3 26.5H, Arterial Blood Oxygen Saturation 97.2, Arterial Blood Base Excess 3.2H, Danny Test Positive 08/30/18 04:00: White Blood Count 12.9#H, Red Blood Count 3.48L, Hemoglobin 10.7L, Hematocrit 31.4L, Mean Corpuscular Volume 90, Mean Corpuscular Hemoglobin 30.7, Mean Corpuscular Hemoglobin Concent 34.0, Red Cell Distribution Width 13.1, Platelet Count 150, Mean Platelet Volume 6.9, Neutrophils (%) (Auto) , Lymphocytes (%) ( Auto) , Monocytes (%) (Auto) , Eosinophils (%) (Auto) , Basophils (%) (Auto) , Sodium Level 149H, Potassium Level 3.7, Chloride Level 110H, Carbon Dioxide Level 25, Anion Gap 14, Blood Urea Nitrogen 77H, Creatinine 2.4H, Estimat Glomerular Filtration Rate , Glucose Level 159H, Calcium Level 8.9 Height (Feet): 5 Height (Inches): 7.00 Weight (Pounds): 157 General Appearance: alert, mild distress EENT: PERRL/EOMI Neck: normal alignment Cardiovascular: normal rate, regular rhythm Respiratory/Chest: rhonchi - bilaterally Abdomen: non tender, soft Extremities: other - no edema Neurologic: stopboard assembler II-XII grossly normal Cesar Nunez MD Aug 30, 2018 09:53
--- NOTE | 2018-08-30 10:00 | NUR ---
NURSE NOTES: Patient turned and repositioned. No new orders at this time. Will continue plan of care.
--- NOTE | 2018-08-30 10:06 | General Progress Note ---
Assessment/Plan Problem List: (1) Sepsis ICD Codes: A41.9 - Sepsis, unspecified organism SNOMED: 54523393 (2) Diabetes ICD Codes: E11.9 - Type 2 diabetes mellitus without complications SNOMED: 66901722 (3) Hypothyroidism ICD Codes: E03.9 - Hypothyroidism, unspecified SNOMED: 56191538 (4) Adrenal insufficiency ICD Codes: E27.40 - Unspecified adrenocortical insufficiency SNOMED: 27616077, 003742451 (5) Abdominal distension (gaseous) ICD Codes: R14.0 - Abdominal distension (gaseous) SNOMED: 335747974 Assessment/Plan reduce IVHC to 25 mg IV every 8 hours continue Levothyroxine 75 mcg IV daily continue NISS Subjective Allergies: Coded Allergies: No Known Allergies (Unverified , 08/22/18) All Systems: reviewed and negative except above Subjective extubated yesterday complaining of leg cramps and asking for cranberry juice Objective Last 24 Hour Vital Signs Date Time Temp Pulse Resp B/P (MAP) Pulse Ox O2 Delivery O2 Flow Rate FiO2 08/30/18 09:00 105 21 130/70 (90) 99 08/30/18 08:00 110 08/30/18 08:00 Venturi Mask 12.0 Venturi Mask Venturi Mask 08/30/18 08:00 99.9 108 21 132/72 (92) 98 08/30/18 07:00 110 21 139/73 (95) 98 08/30/18 06:58 Venturi Mask 12.0 40 08/30/18 06:58 114 22 Venturi Mask 12.0 40 08/30/18 06:57 111 22 99 Venturi Mask 40 08/30/18 06:50 112 22 99 Venturi Mask 12.0 40 08/30/18 06:00 99.7 105 21 122/55 (77) 98 08/30/18 05:00 99.7 112 21 126/65 (85) 97 08/30/18 04:00 111 08/30/18 04:00 Venturi Mask 12.0 Venturi Mask Venturi Mask 08/30/18 04:00 99.7 107 24 125/66 (85) 97 08/30/18 03:34 107 24 95 Venturi Mask 40 08/30/18 03:00 99.7 106 24 111/57 (75) 96 08/30/18 02:00 99.7 112 24 99/54 (69) 94 08/30/18 01:18 Venturi Mask 12.0 40 08/30/18 01:18 97 Venturi Mask 12.0 40 08/30/18 01:00 100.1 115 24 108/51 (70) 97 08/30/18 00:00 Venturi Mask 12.0 Venturi Mask Venturi Mask 08/30/18 00:00 99.0 118 25 108/60 (76) 95 08/30/18 00:00 115 08/29/18 23:32 116 24 97 Venturi Mask 40 08/29/18 23:19 Venturi Mask 40 08/29/18 23:19 115 24 98 Venturi Mask 40 08/29/18 23:00 99.0 102 21 142/71 (94) 99 08/29/18 22:40 153/76 08/29/18 22:00 101.0 106 23 153/76 (101) 100 08/29/18 21:00 103.0 123 26 138/81 (100) 99 08/29/18 20:55 103.0 08/29/18 20:00 104.0 115 27 169/73 (105) 100 08/29/18 20:00 126 08/29/18 20:00 Venturi Mask 12.0 Venturi Mask Venturi Mask 08/29/18 19:42 118 22 100 Venturi Mask 40 08/29/18 19:30 Venturi Mask 40 08/29/18 19:30 102 22 100 Venturi Mask 40 08/29/18 19:30 100 Venturi Mask 40 08/29/18 19:00 89 15 144/65 (91) 100 08/29/18 18:00 90 15 148/68 (94) 100 08/29/18 17:00 98 15 165/72 (103) 100 08/29/18 16:37 101 23 100 Venturi Mask 40 08/29/18 16:29 100 21 97 Venturi Mask 40 08/29/18 16:00 100.0 95 14 155/67 (96) 100 08/29/18 16:00 105 08/29/18 16:00 Venturi Mask 12.0 Venturi Mask Venturi Mask 08/29/18 15:00 98 15 161/69 (99) 100 08/29/18 14:00 110 15 168/70 (102) 100 08/29/18 14:00 Venturi Mask 12.0 40 08/29/18 13:55 103 18 100 Mechanical Ventilator 40 08/29/18 13:38 99 21 99 Mechanical Ventilator 40 08/29/18 13:00 91 15 145/66 (92) 100 08/29/18 12:00 Mechanical Ventilator Mechanical Ventilator 08/29/18 12:00 100.0 90 14 144/68 (93) 100 08/29/18 12:00 94 08/29/18 12:00 94 17 130/66 (87) 100 08/29/18 11:00 83 18 40 08/29/18 11:00 90 17 144/68 (93) 100 Intake and Output 08/29/18 08/30/18 19:00 07:00 Intake Total 110 ml 650 ml Output Total 480 ml 925 ml Balance -370 ml -275 ml IV Total 50 ml 650 ml Tube Feeding 60 ml Output Urine Total 480 ml 925 ml Laboratory Tests 08/29/18 10:51: Arterial Blood pH 7.418, Arterial Blood Partial Pressure CO2 42.8, Arterial Blood Partial Pressure O2 138.4H, Arterial Blood HCO3 27.0H, Arterial Blood Oxygen Saturation 97.2, Arterial Blood Base Excess 2.2H, Danny Test Positive 08/29/18 12:30: Arterial Blood pH 7.402, Arterial Blood Partial Pressure CO2 41.4, Arterial Blood Partial Pressure O2 143.6H, Arterial Blood HCO3 25.2, Arterial Blood Oxygen Saturation 98.1, Arterial Blood Base Excess 0.4, Danny Test Positive 08/29/18 15:00: Arterial Blood pH 7.488H, Arterial Blood Partial Pressure CO2 35.7, Arterial Blood Partial Pressure O2 100.9H, Arterial Blood HCO3 26.5H, Arterial Blood Oxygen Saturation 97.2, Arterial Blood Base Excess 3.2H, Danny Test Positive 08/30/18 04:00: White Blood Count 12.9#H, Red Blood Count 3.48L, Hemoglobin 10.7L, Hematocrit 31.4L, Mean Corpuscular Volume 90, Mean Corpuscular Hemoglobin 30.7, Mean Corpuscular Hemoglobin Concent 34.0, Red Cell Distribution Width 13.1, Platelet Count 150, Mean Platelet Volume 6.9, Neutrophils (%) (Auto) , Lymphocytes (%) ( Auto) , Monocytes (%) (Auto) , Eosinophils (%) (Auto) , Basophils (%) (Auto) , Sodium Level 149H, Potassium Level 3.7, Chloride Level 110H, Carbon Dioxide Level 25, Anion Gap 14, Blood Urea Nitrogen 77H, Creatinine 2.4H, Estimat Glomerular Filtration Rate , Glucose Level 159H, Calcium Level 8.9 Height (Feet): 5 Height (Inches): 7.00 Weight (Pounds): 157 General Appearance: no apparent distress Neck: normal alignment Cardiovascular: normal rate Respiratory/Chest: decreased breath sounds Abdomen: normal bowel sounds Edema: no edema noted Arm (L), no edema noted Arm (R), no edema noted Leg (L), no edema noted Leg (R), no edema noted Pedal (L), no edema noted Pedal (R), no edema noted Generalized Objective Current Medications Medications (Trade) Dose Ordered Sig/Elli Route PRN Reason Start Time Stop Time Status Last Admin Dose Admin Acetaminophen (Tylenol) 650 mg Q4H PRN RECTAL Mild Pain (Pain Scale 1-3) 08/26/18 11:00 09/25/18 10:59 08/29/18 20:09 Albuterol/ Ipratropium (Albuterol/ Ipratropium) 3 ml Q4HRT HHN 08/25/18 11:00 08/30/18 10:59 08/30/18 06:57 Albuterol/ Ipratropium (Albuterol/ Ipratropium) 3 ml Q6H PRN HHN Shortness of Breath 08/27/18 21:45 09/01/18 21:29 08/27/18 21:33 Chlorhexidine Gluconate (Gabriela-Hex 2%) 1 applic DAILY@2000 TOPIC 08/26/18 20:00 09/25/18 19:59 08/29/18 20:08 Dextrose (Dextrose 50%) 25 ml Q30M PRN IV Hypoglycemia 08/25/18 08:30 09/21/18 23:29 Dextrose (Dextrose 50%) 50 ml Q30M PRN IV Hypoglycemia 08/25/18 08:30 09/21/18 23:29 Dextrose/ Electrolytes 1,000 ml @ 100 mls/hr Q10H IV 08/30/18 10:30 09/29/18 10:29 Dopamine HCl/ Dextrose 250 ml @ 0 mls/hr Q24H IV 08/26/18 22:45 09/25/18 22:44 08/28/18 09:27 Fluconazole/ Sodium Chloride 100 ml @ 100 mls/hr Q24H IV 08/28/18 21:00 09/04/18 20:59 08/29/18 20:08 Guaifenesin/ Dextromethorphan (Robitussin DM Syrup) 5 ml Q6H PRN ORAL For Cough 08/25/18 08:30 09/23/18 08:29 Heparin Sodium (Porcine) (Heparin 5000 units/ml) 5,000 units EVERY 12 HOURS SUBQ 08/25/18 09:00 09/22/18 08:59 08/30/18 09:00 Hydrocortisone (Solu-CORTEF) 50 mg EVERY 8 HOURS IV 08/29/18 14:00 09/25/18 21:59 08/30/18 05:26 Insulin Aspart (NovoLOG) EVERY 6 HOURS SUBQ 08/25/18 12:00 09/22/18 00:00 08/30/18 05:29 Levothyroxine Sodium (Synthroid) 75 mcg DAILY IV 08/28/18 09:00 09/27/18 08:59 08/30/18 09:00 Lorazepam (Ativan 2mg/ml 1ml) 1 mg Q6H PRN IV For Anxiety 08/27/18 22:30 09/03/18 22:29 08/29/18 07:45 Meropenem 1 gm/ Sodium Chloride 100 ml @ 200 mls/hr Q12HR@0600,1800 IVPB 08/27/18 18:00 09/01/18 17:59 08/30/18 05:26 Ondansetron HCl (Zofran) 4 mg Q4H PRN IVP Nausea & Vomiting 08/25/18 09:15 09/22/18 17:03 08/27/18 20:40 Pantoprazole (Protonix) 40 mg DAILY ORAL 08/25/18 09:00 09/24/18 08:59 08/30/18 09:00 Vancomycin HCl (Vanco rx to dose) 1 ea DAILY PRN MISC Per rx protocol 08/27/18 12:00 09/26/18 11:59 Item Value Date Time Bedside Blood Glucose 168 mg/dl H 08/30/18 0600 Bedside Blood Glucose 92 mg/dl 08/30/18 0000 Bedside Blood Glucose 108 mg/dl 08/29/18 1800 Bedside Blood Glucose 113 mg/dl 08/29/18 1200 Stanford Baca MD Aug 30, 2018 10:06
[2018-08-30] MEDS: D5 1/2NS w/KCl 40meq 1000ml 1,000 ML IV SCH ×2 (10:31→19:41)
--- NOTE | 2018-08-30 11:16 | Diagnostic Imaging Report ---
EXAM: XR Chest, 1 View CLINICAL HISTORY: INFECT TECHNIQUE: Frontal view of the chest. COMPARISON: Chest x-ray 08/28/18 FINDINGS: Lungs: Mild interstitial prominence minimally improved and slightly worsened bibasilar streaky airspace opacities. Pleural space: Unremarkable. No pneumothorax. Heart: Unremarkable. No cardiomegaly. Mediastinum: Unremarkable. Bones/joints: Unremarkable. Soft tissues: Left neck surgical clips. Tubes, lines and devices: Stable right PICC line. Interval removal of the previously seen endotracheal tube and NG tube. IMPRESSION: Mild interstitial prominence minimally improved and slightly worsened bibasilar streaky airspace opacities.
--- NOTE | 2018-08-30 11:21 | General Progress Note ---
Assessment/Plan Problem List: (1) Sepsis ICD Codes: A41.9 - Sepsis, unspecified organism SNOMED: 05959989 (2) Diabetes ICD Codes: E11.9 - Type 2 diabetes mellitus without complications SNOMED: 63724844 (3) Hypothyroidism ICD Codes: E03.9 - Hypothyroidism, unspecified SNOMED: 69783053 (4) Abdominal distension (gaseous) ICD Codes: R14.0 - Abdominal distension (gaseous) SNOMED: 760038812 Assessment/Plan start puree diet pending swallow eval fu labs icu care Subjective ROS Limited/Unobtainable: Yes Allergies: Coded Allergies: No Known Allergies (Unverified , 08/22/18) Subjective extubated Objective Last 24 Hour Vital Signs Date Time Temp Pulse Resp B/P (MAP) Pulse Ox O2 Delivery O2 Flow Rate FiO2 08/30/18 11:00 101 20 138/77 (97) 99 08/30/18 10:34 109 24 100 Venturi Mask 40 08/30/18 10:00 104 20 135/74 (94) 99 08/30/18 10:00 109 22 90 Venturi Mask 12.0 40 08/30/18 09:00 105 21 130/70 (90) 99 08/30/18 08:00 110 08/30/18 08:00 Venturi Mask 12.0 Venturi Mask Venturi Mask 08/30/18 08:00 99.9 108 21 132/72 (92) 98 08/30/18 07:00 110 21 139/73 (95) 98 08/30/18 06:58 Venturi Mask 12.0 40 08/30/18 06:58 114 22 Venturi Mask 12.0 40 08/30/18 06:57 111 22 99 Venturi Mask 40 08/30/18 06:50 112 22 99 Venturi Mask 12.0 40 08/30/18 06:00 99.7 105 21 122/55 (77) 98 08/30/18 05:00 99.7 112 21 126/65 (85) 97 08/30/18 04:00 111 08/30/18 04:00 Venturi Mask 12.0 Venturi Mask Venturi Mask 08/30/18 04:00 99.7 107 24 125/66 (85) 97 08/30/18 03:34 107 24 95 Venturi Mask 40 12/25/18 03:00 99.7 106 24 111/57 (75) 96 08/30/18 02:00 99.7 112 24 99/54 (69) 94 08/30/18 01:18 Venturi Mask 12.0 40 08/30/18 01:18 97 Venturi Mask 12.0 40 08/30/18 01:00 100.1 115 24 108/51 (70) 97 08/30/18 00:00 Venturi Mask 12.0 Venturi Mask Venturi Mask 08/30/18 00:00 99.0 118 25 108/60 (76) 95 08/30/18 00:00 115 08/29/18 23:32 116 24 97 Venturi Mask 40 08/29/18 23:19 Venturi Mask 40 08/29/18 23:19 115 24 98 Venturi Mask 40 08/29/18 23:00 99.0 102 21 142/71 (94) 99 08/29/18 22:40 153/76 08/29/18 22:00 101.0 106 23 153/76 (101) 100 08/29/18 21:00 103.0 123 26 138/81 (100) 99 08/29/18 20:55 103.0 08/29/18 20:00 104.0 115 27 169/73 (105) 100 08/29/18 20:00 126 08/29/18 20:00 Venturi Mask 12.0 Venturi Mask Venturi Mask 08/29/18 19:42 118 22 100 Venturi Mask 40 08/29/18 19:30 Venturi Mask 40 08/29/18 19:30 102 22 100 Venturi Mask 40 08/29/18 19:30 100 Venturi Mask 40 08/29/18 19:00 89 15 144/65 (91) 100 08/29/18 18:00 90 15 148/68 (94) 100 08/29/18 17:00 98 15 165/72 (103) 100 08/29/18 16:37 101 23 100 Venturi Mask 40 08/29/18 16:29 100 21 97 Venturi Mask 40 08/29/18 16:00 100.0 95 14 155/67 (96) 100 08/29/18 16:00 105 08/29/18 16:00 Venturi Mask 12.0 Venturi Mask Venturi Mask 08/29/18 15:00 98 15 161/69 (99) 100 08/29/18 14:00 110 15 168/70 (102) 100 08/29/18 14:00 Venturi Mask 12.0 40 08/29/18 13:55 103 18 100 Mechanical Ventilator 40 08/29/18 13:38 99 21 99 Mechanical Ventilator 40 08/29/18 13:00 91 15 145/66 (92) 100 08/29/18 12:00 Mechanical Ventilator Mechanical Ventilator 08/29/18 12:00 100.0 90 14 144/68 (93) 100 08/29/18 12:00 94 08/29/18 12:00 94 17 130/66 (87) 100 Intake and Output 08/29/18 08/30/18 19:00 07:00 Intake Total 110 ml 650 ml Output Total 480 ml 925 ml Balance -370 ml -275 ml IV Total 50 ml 650 ml Tube Feeding 60 ml Output Urine Total 480 ml 925 ml Laboratory Tests 08/29/18 12:30: Arterial Blood pH 7.402, Arterial Blood Partial Pressure CO2 41.4, Arterial Blood Partial Pressure O2 143.6H, Arterial Blood HCO3 25.2, Arterial Blood Oxygen Saturation 98.1, Arterial Blood Base Excess 0.4, Danny Test Positive 08/29/18 15:00: Arterial Blood pH 7.488H, Arterial Blood Partial Pressure CO2 35.7, Arterial Blood Partial Pressure O2 100.9H, Arterial Blood HCO3 26.5H, Arterial Blood Oxygen Saturation 97.2, Arterial Blood Base Excess 3.2H, Danny Test Positive 08/30/18 04:00: White Blood Count 12.9#H, Red Blood Count 3.48L, Hemoglobin 10.7L, Hematocrit 31.4L, Mean Corpuscular Volume 90, Mean Corpuscular Hemoglobin 30.7, Mean Corpuscular Hemoglobin Concent 34.0, Red Cell Distribution Width 13.1, Platelet Count 150, Mean Platelet Volume 6.9, Neutrophils (%) (Auto) , Lymphocytes (%) ( Auto) , Monocytes (%) (Auto) , Eosinophils (%) (Auto) , Basophils (%) (Auto) , Sodium Level 149H, Potassium Level 3.7, Chloride Level 110H, Carbon Dioxide Level 25, Anion Gap 14, Blood Urea Nitrogen 77H, Creatinine 2.4H, Estimat Glomerular Filtration Rate , Glucose Level 159H, Calcium Level 8.9 Height (Feet): 5 Height (Inches): 7.00 Weight (Pounds): 157 General Appearance: alert EENT: normal ENT inspection Neck: supple Cardiovascular: normal rate Respiratory/Chest: decreased breath sounds Abdomen: normal bowel sounds, non tender, soft Extremities: non-tender Nick Vera MD Aug 30, 2018 11:21
--- NOTE | 2018-08-30 12:00 | NUR ---
NURSE NOTES: Patient asleep. Turned and repositioned. No new orders. Will continue to monitor patient.
--- NOTE | 2018-08-30 14:00 | NUR ---
NURSE NOTES: Patient turned and repositioned. No new orders at this time. Dr. Fortune at bedside adressing family concerns regarding persistant low grade fever. Will continue to monitor patient.
--- NOTE | 2018-08-30 15:44 | Infectious Diseases Prog Note ---
Assessment/Plan Assessment/Plan ASSESSMENT/PLAN: 1. 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 hcap, ? aspiration, respiratory failure, on vent, ROSA likely secondary to sepsis/hypotension, fci steroid use - ? OI infection and pna, ? PCP, ? aspergillus, ? other, sc- chavez albicans, fungemia risk - meropenem, azithromycin, discontinue vancomycin - start clindamycin plus primaquine to tx for pcp (try to avoid nephrotoxic meds such as bactrim since in ROSA) - start voriconazole for aspergillus treatment, oral only available per d/w pharmacy - check CT scan of chest, abdomen and pelvis without contrast since in ROSA - consider bronchoscopy if no improvement - f/u on cultures, check serology - steroids - monitor labs, temps, chest x-ray - icu care, bp support, vent support - d/w Dr. Bonilla - d/w family at length, answered multiple questions 2. The patient has a history of adrenal insufficiency. 3. History of melanoma in remission. 4. History of biliary sepsis, status post cholecystectomy. 5. Hypothyroidism. 6. Hypertension. 7. Diabetes. 8. History of cancer, which I believe is the melanoma. 9. Past medical history noted. 10. No known drug allergies. 11. Social history is negative. 12. Family history is negative. 13. MAR was noted. 14. Case was discussed with RN. 15. Case was discussed with Dr. Bonilla. 16. Case was discussed with the patient's family. 17. The patient was seen in the emergency room 18. The patient will need ICU care. 19. Continue treatment per primary consultants. 20. Notes and records were noted. 21. Orders were entered. 22. Case was discussed with pharmacy. 23. Skin care protocol. 24. Time spent - 45 minutes Subjective Constitutional: Reports: fever, other - extubated, off vent HEENT: Reports: congestion Respiratory: Reports: shortness of breath Cardiovascular: Denies: chest pain Gastrointestinal/Abdominal: Denies: nausea, vomiting, diarrhea Genitourinary: Reports: other - + reyes Neurologic: Reports: weakness, other - alert and responsive Psychiatric: Denies: depression Skin: Denies: rash Hematologic: Denies: bleeding Musculoskeletal: Denies: pain Allergies: Coded Allergies: No Known Allergies (Unverified , 08/22/18) Objective Vital Signs Last 24 Hour Vital Signs Date Time Temp Pulse Resp B/P (MAP) Pulse Ox O2 Delivery O2 Flow Rate FiO2 08/30/18 12:00 Venturi Mask 12.0 Venturi Mask Venturi Mask 08/30/18 12:00 118 08/30/18 12:00 99.5 115 18 111/58 (75) 98 08/30/18 11:00 101 20 138/77 (97) 99 08/30/18 10:34 109 24 100 Venturi Mask 40 08/30/18 10:00 104 20 135/74 (94) 99 08/30/18 10:00 109 22 90 Venturi Mask 12.0 40 08/30/18 09:00 105 21 130/70 (90) 99 08/30/18 08:00 110 08/30/18 08:00 Venturi Mask 12.0 Venturi Mask Venturi Mask 08/30/18 08:00 99.9 108 21 132/72 (92) 98 08/30/18 07:00 110 21 139/73 (95) 98 08/30/18 06:58 Venturi Mask 12.0 40 08/30/18 06:58 114 22 Venturi Mask 12.0 40 08/30/18 06:57 111 22 99 Venturi Mask 40 08/30/18 06:50 112 22 99 Venturi Mask 12.0 40 08/30/18 06:00 99.7 105 21 122/55 (77) 98 08/30/18 05:00 99.7 112 21 126/65 (85) 97 08/30/18 04:00 111 08/30/18 04:00 Venturi Mask 12.0 Venturi Mask Venturi Mask 08/30/18 04:00 99.7 107 24 125/66 (85) 97 08/30/18 03:34 107 24 95 Venturi Mask 40 08/30/18 03:00 99.7 106 24 111/57 (75) 96 08/30/18 02:00 99.7 112 24 99/54 (69) 94 08/30/18 01:18 Venturi Mask 12.0 40 08/30/18 01:18 97 Venturi Mask 12.0 40 08/30/18 01:00 100.1 115 24 108/51 (70) 97 08/30/18 00:00 Venturi Mask 12.0 Venturi Mask Venturi Mask 08/30/18 00:00 99.0 118 25 108/60 (76) 95 08/30/18 00:00 115 08/29/18 23:32 116 24 97 Venturi Mask 40 08/29/18 23:19 Venturi Mask 40 08/29/18 23:19 115 24 98 Venturi Mask 40 08/29/18 23:00 99.0 102 21 142/71 (94) 99 08/29/18 22:40 153/76 08/29/18 22:00 101.0 106 23 153/76 (101) 100 08/29/18 21:00 103.0 123 26 138/81 (100) 99 08/29/18 20:55 103.0 08/29/18 20:00 104.0 115 27 169/73 (105) 100 08/29/18 20:00 126 08/29/18 20:00 Venturi Mask 12.0 Venturi Mask Venturi Mask 08/29/18 19:42 118 22 100 Venturi Mask 40 08/29/18 19:30 Venturi Mask 40 08/29/18 19:30 102 22 100 Venturi Mask 40 08/29/18 19:30 100 Venturi Mask 40 08/29/18 19:00 89 15 144/65 (91) 100 08/29/18 18:00 90 15 148/68 (94) 100 08/29/18 17:00 98 15 165/72 (103) 100 08/29/18 16:37 101 23 100 Venturi Mask 40 08/29/18 16:29 100 21 97 Venturi Mask 40 08/29/18 16:00 100.0 95 14 155/67 (96) 100 08/29/18 16:00 105 08/29/18 16:00 Venturi Mask 12.0 Venturi Mask Venturi Mask Height (Feet): 5 Height (Inches): 7.00 Weight (Pounds): 157 General Appearance: no acute distress HEENT: normocephalic, atraumatic, anicteric, EOMI, supple, no JVD Respiratory/Chest: crackles/rales, rhonchi - bilaterally Cardiovascular: normal rate, regular rhythm, no gallop/murmur, no JVD Abdomen: normal bowel sounds, soft, non tender, no organomegaly, non distended Genitourinary: other Extremities: no cyanosis Skin: no rash 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 What are probably hepatic cysts adjacent to the gallbladder fossa mimics fluid in the gallbladder fossa on the axial views, but appear to be cysts on the coronal images. Nonetheless, biloma or other pathologic collection not completely excludable Multiple nonobstructive left renal calculi Reyes catheter Bilateral basilar pulmonary interstitial prominence, nonspecific Scoliosis and spondylosis Chest x-ray - nad x 2, reports noted Chest x-ray - 08/25/18 Impression: Interval worsening of aeration with development of dense airspace opacities in the medial right mid/lower lung and patchy opacities in the right upper lung concerning for multifocal pneumonia. Perihilar interstitial opacities in the left raise question for a degree of underlying congestion/fluid overload. Clinical correlation/follow-up recommended. Findings discussed with ordering physician Dr. Bonilla at time of dictation of the final report. Chest - x-ray - 08/26/18 - Procedure: XRAY Chest 1v Indication: Shortness of breath Technique: One view of the chest Comparison: 08/25/2018 Findings: Less optimal inspiration currently Extensive bilateral infiltrates versus edema appear unchanged on the right, slightly worse on the left. There may be some pleural fluid on the left. The heart size is normal Impression: Bilateral infiltrates again demonstrated, slightly worse on the left over one Chest x-ray - 08/28 - COMPARISON: Chest x-rays dated 08/27/18 FINDINGS: Lungs: Patchy perihilar opacities, which may represent pulmonary edema versus infiltrates, not significantly changed compared to the prior exam. Pleural space: Unremarkable. The costophrenic angles are sharp. No visible pneumothorax. Heart: Unremarkable. No cardiomegaly. Mediastinum: Unremarkable. Bones/joints: Unremarkable. Tubes, lines and devices: Stable positioning of the endotracheal tube and nasogastric tube. EKG leads overlie the thorax. IMPRESSION: No significant interval change in the patchy perihilar opacities, which may represent pulmonary edema versus infiltrates. Chest x-ray - 08/30/18 - FINDINGS: Lungs: Mild interstitial prominence minimally improved and slightly worsened bibasilar streaky airspace opacities. Pleural space: Unremarkable. No pneumothorax. Heart: Unremarkable. No cardiomegaly. Mediastinum: Unremarkable. Bones/joints: Unremarkable. Soft tissues: Left neck surgical clips. Tubes, lines and devices: Stable right PICC line. Interval removal of the previously seen endotracheal tube and NG tube. IMPRESSION: Mild interstitial prominence minimally improved and slightly worsened bibasilar streaky airspace opacities. Microbiology Date/Time Source Procedure Growth Status 08/28/18 19:40 Blood Blood Culture - Preliminary NO GROWTH AFTER 24 HOURS Resulted 08/26/18 11:45 Sputum Gram Stain - Final Complete 08/26/18 11:45 Sputum Sputum Culture - Final NO GROWTH AFTER 48 HOURS Complete 08/24/18 08:00 Stool Stool Culture - Final NO SALMONELLA,SHIGELLA,OR CAMPYLOBACT... Complete 08/25/18 16:03 Indwelling Cath Urine Culture - Final NO GROWTH AFTER 48 HOURS Complete 08/22/18 20:30 Rectum VRE Culture - Final NO VANCOMYCIN RESISTANT ENTEROCOCCUS ... Complete 08/22/18 20:30 Rectum - Final NO CARBAPENEM-RESISTANT ENTEROBACTERI... Complete Microbiology Date/Time Source Procedure Growth Status 08/28/18 19:40 Blood Blood Culture - Preliminary NO GROWTH AFTER 24 HOURS Resulted 08/28/18 19:35 Blood Blood Culture - Preliminary NO GROWTH AFTER 24 HOURS Resulted Laboratory Tests Test 08/30/18 04:00 White Blood Count 12.9 K/UL (4.8-10.8) #H Red Blood Count 3.48 M/UL (4.70-6.10) L Hemoglobin 10.7 G/DL (14.2-18.0) L Hematocrit 31.4 % (42.0-52.0) L Mean Corpuscular Volume 90 FL (80-99) Mean Corpuscular Hemoglobin 30.7 PG (27.0-31.0) Mean Corpuscular Hemoglobin Concent 34.0 G/DL (32.0-36.0) Red Cell Distribution Width 13.1 % (11.6-14.8) Platelet Count 150 K/UL (150-450) Mean Platelet Volume 6.9 FL (6.5-10.1) Neutrophils (%) (Auto) % (45.0-75.0) Lymphocytes (%) (Auto) % (20.0-45.0) Monocytes (%) (Auto) % (1.0-10.0) Eosinophils (%) (Auto) % (0.0-3.0) Basophils (%) (Auto) % (0.0-2.0) Sodium Level 149 MMOL/L (136-145) H Potassium Level 3.7 MMOL/L (3.5-5.1) Chloride Level 110 MMOL/L (98-107) H Carbon Dioxide Level 25 MMOL/L (21-32) Anion Gap 14 mmol/L (5-15) Blood Urea Nitrogen 77 mg/dL (7-18) H Creatinine 2.4 MG/DL (0.55-1.30) H Estimat Glomerular Filtration Rate mL/min (>60) Glucose Level 159 MG/DL (74-106) H Calcium Level 8.9 MG/DL (8.5-10.1) Current Medications Medications (Trade) Dose Ordered Sig/Elli Route PRN Reason Start Time Stop Time Status Last Admin Dose Admin Acetaminophen (Tylenol) 650 mg Q4H PRN RECTAL Mild Pain (Pain Scale 1-3) 08/26/18 11:00 09/25/18 10:59 08/29/18 20:09 Albuterol/ Ipratropium (Albuterol/ Ipratropium) 3 ml Q6H PRN HHN Shortness of Breath 08/27/18 21:45 09/01/18 21:29 08/27/18 21:33 Chlorhexidine Gluconate (Gabriela-Hex 2%) 1 applic DAILY@2000 TOPIC 08/26/18 20:00 09/25/18 19:59 08/29/18 20:08 Dextrose (Dextrose 50%) 25 ml Q30M PRN IV Hypoglycemia 08/25/18 08:30 09/21/18 23:29 Dextrose (Dextrose 50%) 50 ml Q30M PRN IV Hypoglycemia 08/25/18 08:30 09/21/18 23:29 Dextrose/ Electrolytes 1,000 ml @ 100 mls/hr Q10H IV 08/30/18 10:30 09/29/18 10:29 08/30/18 10:31 Fluconazole/ Sodium Chloride 100 ml @ 100 mls/hr Q24H IV 08/28/18 21:00 09/04/18 20:59 08/29/18 20:08 Guaifenesin/ Dextromethorphan (Robitussin DM Syrup) 5 ml Q6H PRN ORAL For Cough 08/25/18 08:30 09/23/18 08:29 Heparin Sodium (Porcine) (Heparin 5000 units/ml) 5,000 units EVERY 12 HOURS SUBQ 08/25/18 09:00 09/22/18 08:59 08/30/18 09:00 Hydrocortisone (Solu-CORTEF) 25 mg EVERY 8 HOURS IV 08/30/18 14:00 09/25/18 21:59 Insulin Aspart (NovoLOG) EVERY 6 HOURS SUBQ 08/25/18 12:00 09/22/18 00:00 08/30/18 05:29 Levothyroxine Sodium (Synthroid) 75 mcg DAILY IV 08/28/18 09:00 09/27/18 08:59 08/30/18 09:00 Lorazepam (Ativan 2mg/ml 1ml) 1 mg Q6H PRN IV For Anxiety 08/27/18 22:30 09/03/18 22:29 08/29/18 07:45 Meropenem 1 gm/ Sodium Chloride 100 ml @ 200 mls/hr Q12HR@0600,1800 IVPB 08/27/18 18:00 09/01/18 17:59 08/30/18 05:26 Ondansetron HCl (Zofran) 4 mg Q4H PRN IVP Nausea & Vomiting 08/25/18 09:15 09/22/18 17:03 08/27/18 20:40 Pantoprazole (Protonix) 40 mg DAILY ORAL 08/25/18 09:00 09/24/18 08:59 08/30/18 09:00 Vancomycin HCl (Vanco rx to dose) 1 ea DAILY PRN MISC Per rx protocol 08/27/18 12:00 09/26/18 11:59 Treasure Vargas MD Aug 30, 2018 15:44
--- NOTE | 2018-08-30 16:00 | NUR ---
NURSE NOTES: Patient complaining of hip muscle pain. Heat pack applies. Dr. Bonilla contacted for muscle pain relaxant.
--- NOTE | 2018-08-30 16:07 | Pulmonolgy Critical Care Note ---
Critical Care - Asmt/Plan Assessment/Plan: Pulmonary CC Progress Note HISTORY OF PRESENT ILLNESS: The patient was admitted one week ago with sepsis of unclear etiology. His initial chest x-ray was negative. He had a past history of stage IV melanoma, which has been treated with immunotherapy. Following admission, he was treated with antibiotics and other medications, but his condition declined and three days ago, he was intubated for respiratory failure and transferred to intensive care. He was found to have probable pneumonia and possible congestive heart failure. I was called to see him at the request of the family for second opinion regarding his respiratory status. I discussed this with the primary pulmonary physician today. PAST MEDICAL HISTORY: Includes adrenal insufficiency, malignant melanoma stage IV undergoing immunotherapy, hypertension, cholecystectomy, diabetes, hypothyroid, and hernia repair. ALLERGIES: None. MEDICATIONS: Reviewed. PHYSICAL EXAMINATION: VSS noted GENERAL: The patient is alert and nods his head. He tries to speak, but has an oral endotracheal tube in place. The patient appears to have significant muscle wasting. VITAL SIGNS: Stable without pressors or sedatives. HEENT: Head, normocephalic. Mouth, oral endotracheal tube in place on ventilatory support. NECK: No jugular vein distention. CHEST: Clear. CARDIAC: Rhythm regular. ABDOMEN: Soft and nontender. EXTREMITIES: No clubbing, cyanosis, or edema. DIAGNOSTIC DATA: Chest x-ray shows improving right base infiltrate with the tube in good position. CXR XR Chest, 1 View CLINICAL HISTORY: INFECT TECHNIQUE: Frontal view of the chest. COMPARISON: Chest x-ray 08/28/18 FINDINGS: Lungs: Mild interstitial prominence minimally improved and slightly worsened bibasilar streaky airspace opacities. Pleural space: Unremarkable. No pneumothorax. Heart: Unremarkable. No cardiomegaly. Mediastinum: Unremarkable. Bones/joints: Unremarkable. Soft tissues: Left neck surgical clips. Tubes, lines and devices: Stable right PICC line. Interval removal of the previously seen endotracheal tube and NG tube. IMPRESSION: Mild interstitial prominence minimally improved and slightly worsened bibasilar streaky airspace opacities. LABORATORY STUDIES: Reviewed. White count has come down to normal. IMPRESSION: 1. Acute respiratory failure. 2. Pneumonia. 3. Sepsis. 4. Adrenal insufficiency. 5. Metastatic melanoma. 6. Diabetes. 7. Acute renal failure. PLAN: The patient's respiratory status is improving. His spontaneous tidal volume, respiratory rate, and vital capacity are good and I expect he can be extubated today. We will check a blood gas on CPAP with pressure support 5, and if it is satisfactory, the tube will be removed. Critical Care - Objective Last 24 Hour Vital Signs Date Time Temp Pulse Resp B/P (MAP) Pulse Ox O2 Delivery O2 Flow Rate FiO2 08/30/18 16:00 115 08/30/18 16:00 Venturi Mask 12.0 Venturi Mask Venturi Mask 08/30/18 16:00 100.1 115 18 140/74 (96) 98 08/30/18 15:00 112 20 149/74 (99) 95 08/30/18 14:00 115 20 135/58 (83) 99 08/30/18 13:00 114 20 133/72 (92) 99 08/30/18 12:00 Venturi Mask 12.0 Venturi Mask Venturi Mask 08/30/18 12:00 118 08/30/18 12:00 99.5 115 18 111/58 (75) 98 08/30/18 11:00 101 20 138/77 (97) 99 08/30/18 10:34 109 24 100 Venturi Mask 40 08/30/18 10:00 104 20 135/74 (94) 99 08/30/18 10:00 109 22 90 Venturi Mask 12.0 40 08/30/18 09:00 105 21 130/70 (90) 99 08/30/18 08:00 110 08/30/18 08:00 Venturi Mask 12.0 Venturi Mask Venturi Mask 08/30/18 08:00 99.9 108 21 132/72 (92) 98 08/30/18 07:00 110 21 139/73 (95) 98 08/30/18 06:58 Venturi Mask 12.0 40 08/30/18 06:58 114 22 Venturi Mask 12.0 40 08/30/18 06:57 111 22 99 Venturi Mask 40 08/30/18 06:50 112 22 99 Venturi Mask 12.0 40 08/30/18 06:00 99.7 105 21 122/55 (77) 98 08/30/18 05:00 99.7 112 21 126/65 (85) 97 08/30/18 04:00 111 08/30/18 04:00 Venturi Mask 12.0 Venturi Mask Venturi Mask 08/30/18 04:00 99.7 107 24 125/66 (85) 97 08/30/18 03:34 107 24 95 Venturi Mask 40 08/30/18 03:00 99.7 106 24 111/57 (75) 96 08/30/18 02:00 99.7 112 24 99/54 (69) 94 08/30/18 01:18 Venturi Mask 12.0 40 08/30/18 01:18 97 Venturi Mask 12.0 40 08/30/18 01:00 100.1 115 24 108/51 (70) 97 08/30/18 00:00 Venturi Mask 12.0 Venturi Mask Venturi Mask 08/30/18 00:00 99.0 118 25 108/60 (76) 95 08/30/18 00:00 115 08/29/18 23:32 116 24 97 Venturi Mask 40 08/29/18 23:19 Venturi Mask 40 08/29/18 23:19 115 24 98 Venturi Mask 40 08/29/18 23:00 99.0 102 21 142/71 (94) 99 08/29/18 22:40 153/76 08/29/18 22:00 101.0 106 23 153/76 (101) 100 08/29/18 21:00 103.0 123 26 138/81 (100) 99 08/29/18 20:55 103.0 08/29/18 20:00 104.0 115 27 169/73 (105) 100 08/29/18 20:00 126 08/29/18 20:00 Venturi Mask 12.0 Venturi Mask Venturi Mask 08/29/18 19:42 118 22 100 Venturi Mask 40 08/29/18 19:30 Venturi Mask 40 08/29/18 19:30 102 22 100 Venturi Mask 40 08/29/18 19:30 100 Venturi Mask 40 08/29/18 19:00 89 15 144/65 (91) 100 08/29/18 18:00 90 15 148/68 (94) 100 08/29/18 17:00 98 15 165/72 (103) 100 08/29/18 16:37 101 23 100 Venturi Mask 40 08/29/18 16:29 100 21 97 Venturi Mask 40 Micro: Microbiology Date/Time Source Procedure Growth Status 08/28/18 19:40 Blood Blood Culture - Preliminary NO GROWTH AFTER 24 HOURS Resulted 08/28/18 19:35 Blood Blood Culture - Preliminary NO GROWTH AFTER 24 HOURS Resulted Accucheck: 100 Critical Care - Subjective FI02: 40 Vent Support Breath Rate: 12 Vent Support Mode: AC Vent Tidal Volume: 500 Sputum Amount: None PEEP: 5.0 PIP: 18 Tube Feeding Amount: 10 I&O: Intake and Output 08/29/18 08/30/18 18:59 06:59 Intake Total 270 ml 700 ml Output Total 500 ml 880 ml Balance -230 ml -180 ml IV Total 200 ml 700 ml Tube Feeding 70 ml Output Urine Total 500 ml 880 ml ET-Tube: 7.5 ET Position: 24 Nathaniel Villegas MD Aug 30, 2018 16:07
[2018-08-30] MEDS: traMADol 50mg tab ORAL PRN (16:31)
[2018-08-30 16:49] LABS: ALANINE AMINOTRANSFERASE 47 U/L (12-78); ALBUMIN 2.5 G/DL (3.4-5.0); ALBUMIN/GLOBULIN RATIO 0.7 (1.0-2.7); ALKALINE PHOSPHATASE 52 U/L (46-116); ANION GAP 11 mmol/L (5-15); ASPARTATE AMINO TRANSFERASE 82 U/L (15-37); BILIRUBIN,TOTAL 0.6 MG/DL (0.2-1.0); BLOOD UREA NITROGEN 71 mg/dL (7-18); CALCIUM 8.8 MG/DL (8.5-10.1); CARBON DIOXIDE 29 MMOL/L (21-32); CHLORIDE 114 MMOL/L (98-107); CREATININE 2.3 MG/DL (0.55-1.30); LACTATE DEHYDROGENASE 627 U/L (81-234); POTASSIUM 3.8 MMOL/L (3.5-5.1); SODIUM 154 MMOL/L (136-145)
--- NOTE | 2018-08-30 16:49 | General Surgery Progress Note ---
General Surgery-Progress Note Subjective Additional Comments extubated. awake. responsive. following commands Objective Last 24 Hour Vital Signs Date Time Temp Pulse Resp B/P (MAP) Pulse Ox O2 Delivery O2 Flow Rate FiO2 08/30/18 16:00 115 08/30/18 16:00 Venturi Mask 12.0 Venturi Mask Venturi Mask 08/30/18 16:00 100.1 115 18 140/74 (96) 98 08/30/18 15:00 112 20 149/74 (99) 95 08/30/18 14:00 115 20 135/58 (83) 99 08/30/18 13:00 114 20 133/72 (92) 99 08/30/18 12:00 Venturi Mask 12.0 Venturi Mask Venturi Mask 08/30/18 12:00 118 08/30/18 12:00 99.5 115 18 111/58 (75) 98 08/30/18 11:00 101 20 138/77 (97) 99 08/30/18 10:34 109 24 100 Venturi Mask 40 08/30/18 10:00 104 20 135/74 (94) 99 08/30/18 10:00 109 22 90 Venturi Mask 12.0 40 08/30/18 09:00 105 21 130/70 (90) 99 08/30/18 08:00 110 08/30/18 08:00 Venturi Mask 12.0 Venturi Mask Venturi Mask 08/30/18 08:00 99.9 108 21 132/72 (92) 98 08/30/18 07:00 110 21 139/73 (95) 98 08/30/18 06:58 Venturi Mask 12.0 40 08/30/18 06:58 114 22 Venturi Mask 12.0 40 08/30/18 06:57 111 22 99 Venturi Mask 40 08/30/18 06:50 112 22 99 Venturi Mask 12.0 40 08/30/18 06:00 99.7 105 21 122/55 (77) 98 08/30/18 05:00 99.7 112 21 126/65 (85) 97 08/30/18 04:00 111 08/30/18 04:00 Venturi Mask 12.0 Venturi Mask Venturi Mask 08/30/18 04:00 99.7 107 24 125/66 (85) 97 12/25/18 03:34 107 24 95 Venturi Mask 40 08/30/18 03:00 99.7 106 24 111/57 (75) 96 08/30/18 02:00 99.7 112 24 99/54 (69) 94 08/30/18 01:18 Venturi Mask 12.0 40 08/30/18 01:18 97 Venturi Mask 12.0 40 08/30/18 01:00 100.1 115 24 108/51 (70) 97 08/30/18 00:00 Venturi Mask 12.0 Venturi Mask Venturi Mask 08/30/18 00:00 99.0 118 25 108/60 (76) 95 08/30/18 00:00 115 08/29/18 23:32 116 24 97 Venturi Mask 40 08/29/18 23:19 Venturi Mask 40 08/29/18 23:19 115 24 98 Venturi Mask 40 08/29/18 23:00 99.0 102 21 142/71 (94) 99 08/29/18 22:40 153/76 08/29/18 22:00 101.0 106 23 153/76 (101) 100 08/29/18 21:00 103.0 123 26 138/81 (100) 99 08/29/18 20:55 103.0 08/29/18 20:00 104.0 115 27 169/73 (105) 100 08/29/18 20:00 126 08/29/18 20:00 Venturi Mask 12.0 Venturi Mask Venturi Mask 08/29/18 19:42 118 22 100 Venturi Mask 40 08/29/18 19:30 Venturi Mask 40 08/29/18 19:30 102 22 100 Venturi Mask 40 08/29/18 19:30 100 Venturi Mask 40 08/29/18 19:00 89 15 144/65 (91) 100 08/29/18 18:00 90 15 148/68 (94) 100 08/29/18 17:00 98 15 165/72 (103) 100 I&O Intake and Output 08/29/18 08/30/18 18:59 06:59 Intake Total 270 ml 700 ml Output Total 500 ml 880 ml Balance -230 ml -180 ml IV Total 200 ml 700 ml Tube Feeding 70 ml Output Urine Total 500 ml 880 ml Cardiovascular: RSR Respiratory: decreased breath sounds Abdomen: soft, flat, non-tender, present bowel sounds Extremities: no cyanosis Laboratory Tests Test 08/30/18 04:00 08/30/18 16:00 White Blood Count 12.9 K/UL (4.8-10.8) #H Red Blood Count 3.48 M/UL (4.70-6.10) L Hemoglobin 10.7 G/DL (14.2-18.0) L Hematocrit 31.4 % (42.0-52.0) L Mean Corpuscular Volume 90 FL (80-99) Mean Corpuscular Hemoglobin 30.7 PG (27.0-31.0) Mean Corpuscular Hemoglobin Concent 34.0 G/DL (32.0-36.0) Red Cell Distribution Width 13.1 % (11.6-14.8) Platelet Count 150 K/UL (150-450) Mean Platelet Volume 6.9 FL (6.5-10.1) Neutrophils (%) (Auto) % (45.0-75.0) Lymphocytes (%) (Auto) % (20.0-45.0) Monocytes (%) (Auto) % (1.0-10.0) Eosinophils (%) (Auto) % (0.0-3.0) Basophils (%) (Auto) % (0.0-2.0) Sodium Level 149 MMOL/L (136-145) H Pending Potassium Level 3.7 MMOL/L (3.5-5.1) Pending Chloride Level 110 MMOL/L (98-107) H Pending Carbon Dioxide Level 25 MMOL/L (21-32) Pending Anion Gap 14 mmol/L (5-15) Blood Urea Nitrogen 77 mg/dL (7-18) H Pending Creatinine 2.4 MG/DL (0.55-1.30) H Pending Estimat Glomerular Filtration Rate mL/min (>60) Pending Glucose Level 159 MG/DL (74-106) H Pending Calcium Level 8.9 MG/DL (8.5-10.1) Pending Lactic Acid Level Pending Total Bilirubin Pending Aspartate Amino Transf (AST/SGOT) Pending Alanine Aminotransferase (ALT/SGPT) Pending Alkaline Phosphatase Pending Lactate Dehydrogenase Pending Total Protein Pending Albumin Pending Globulin Pending Coccidioides Antibody (Comp Fix) Pending Cryptococcus Antigen Pending Mycoplasma pneumoniae IgG Antibody Pending Mycoplasma pneumoniae IgM Ab Titer Pending Plan Problems: (1) Sepsis (2) Abdominal distension (gaseous) Assessment & Plan: Abdominal distention / discomfort. no n/v/f/c. +flatus. feels bloated. exam with mild distention/non tender CT - Mildly fluid-filled small bowel loops, nonspecific, No acute process otherwise, Postcholecystectomy changes. What are probably hepatic cysts adjacent to the gallbladder fossa mimics fluid in the gallbladder fossa on the axial views, but appear to be cysts on the coronal images. Nonetheless, biloma or other pathologic collection not completely excludable Multiple nonobstructive left renal calculi Sarmiento catheter Bilateral basilar pulmonary interstitial prominence, nonspecific Scoliosis and spondylosis KUB - Nonspecific prominent but not frankly dilated gas-filled small bowel loops , decreased from previous day's exam Satisfactory position right groin central venous catheter worsening respiratory status requiring intubation abdominal exam unchanged KUB okay no signs of obstruction more awake today labs improved. gas okay -no acute surgical intervention planned -Rx as written -appreciate ICU team care -will follow clinically with exams thank you for allowing me to participate in patients care David Daley Aug 30, 2018 16:49
[2018-08-30] MEDS: Azithromycin 500 MG in D5W 275 ML IV SCH (17:18)
--- NOTE | 2018-08-30 18:00 | NUR ---
NURSE NOTES: Patient cleaned, changed and repositioned. No distress noted. Family at bedside. Will continue plan of care.
--- NOTE | 2018-08-30 19:08 | NUR ---
HAND-OFF: Report given to Heidy RN using SBAR. VSS. No distress noted.
--- NOTE | 2018-08-30 19:09 | NUR ---
NURSE NOTES: Endorsement received from FAY New. Patient opens eyes to voice, follows simple commands, able to communicate needs. Receiving oxygen 12L 40% per aerosol mask. With right upper arm PICC, ongoing D5 1/2 NS with 40 KCl at 100ml/hr. Sarmiento catheter connected to urimeter. Head of bed elevated. Bed locked and in low position. Bed alarm on.
[2018-08-30] MEDS: Dyna-Hex 2% Top Sol 2oz TOPIC SCH (19:41)
--- NOTE | 2018-08-30 21:00 | NUR ---
NURSE NOTES: Patient able to answer simple questions. No complains of any pain at this time.
[2018-08-30] MEDS: Clindamycin 600mg 50 ML IV SCH (22:02)
[2018-08-30] MEDS: D5W w/KCl 20mEq 1,000 ML IV SCH (22:53)
--- NOTE | 2018-08-30 23:00 | NUR ---
NURSE NOTES: Secretions suctioned per nasotracheal, noted with thick white secretions. Kept head of bed elevated.
--- NOTE | 2018-08-30 23:15 | Progress Note ---
DATE: 08/30/2018 INTERNAL MEDICINE AND CARDIOLOGY PROGRESS NOTE, CRITICAL CARE SUBJECTIVE: The patient remains in the intensive care unit. He is on high-flow oxygen 40% titrating adequately. He was extubated yesterday. The patient remains with fever spike last night. Today, low-grade temperatures. He is on broad-spectrum antibiotics. Case was discussed with infectious disease and pulmonary consultants as well as surgeon. No nausea, vomiting, or abdominal pain. Tolerating very little diet due to poor appetite. PHYSICAL EXAMINATION: VITAL SIGNS: Blood pressure 111/58, pulse 115, respiratory rate 18, and temperature 99.5. LUNGS: Coarse breath sounds. Scattered rhonchi. HEART: Regular rhythm. Rapid rate. Normal S1 and S2. ABDOMEN: Soft. No distention. EXTREMITIES: No edema. LABORATORY DATA: Cultures all remained negative. White count 12.9 and hemoglobin 10.7. Lactic acid 2.1 earlier, now 1.1. BUN 71, creatinine 2.3, sodium 154, and potassium 3.8. LDH 627. Albumin 2.5. IMPRESSION: 1. Respiratory failure. 2. Pneumonia. 3. Hypoxia. 4. Dehydration. 5. Hyponatremia. 6. Hyperchloremia. 7. Acute kidney injury. 8. Lactic acidosis. 9. Sepsis. 10. Adrenocortical insufficiency with recovered shock. PLAN: 1. Antimicrobials adjusted to include atypical pathogens. 2. High free water replacement. 3. Nutritional support. 4. Monitor renal parameters. 5. Remains high risk. 6. Continue DVT prophylaxis. 7. Continue to titrate steroid replacement. Nathaniel Bonilla M.D. DR: JONH JOB#: [id number] CC:
[2018-08-31] VITALS (25 sets, daily range): BP systolic 100–154; BP diastolic 47–88
[2018-08-31] MEDS: NovoLOG Insulin Flexpen SUBQ SCH ×5 (00:20→20:36)
--- NOTE | 2018-08-31 02:00 | NUR ---
NURSE NOTES: Patient asleep. Arousable per name.
--- NOTE | 2018-08-31 04:00 | NUR ---
NURSE NOTES: Secretions suctioned. Oral care, bed bath, change of linens done.
[2018-08-31 05:04] LABS: HEMATOCRIT 30.1 % (42.0-52.0); HEMOGLOBIN 9.9 G/DL (14.2-18.0); MEAN CORPUSCULAR VOLUME 91 FL (80-99); PLATELET COUNT 155 K/UL (150-450); RED BLOOD COUNT 3.33 M/UL (4.70-6.10); RED CELL DISTRIBUTION WIDTH 12.8 % (11.6-14.8); WHITE BLOOD COUNT 10.8 K/UL (4.8-10.8)
[2018-08-31 05:15] LABS: PHOSPHORUS 2.3 MG/DL (2.5-4.9)
[2018-08-31] MEDS: Clindamycin 600mg 50 ML IV SCH ×2 (05:35→15:35)
[2018-08-31] MEDS: Hydrocortisone 100mg Inj IV SCH ×3 (05:35→21:57)
--- NOTE | 2018-08-31 06:00 | NUR ---
NURSE NOTES: Patient asleep. Vital signs stable.
--- NOTE | 2018-08-31 07:00 | General Progress Note ---
Assessment/Plan Problem List: (1) Sepsis ICD Codes: A41.9 - Sepsis, unspecified organism SNOMED: 90559459 (2) Diabetes ICD Codes: E11.9 - Type 2 diabetes mellitus without complications SNOMED: 27436321 (3) Hypothyroidism ICD Codes: E03.9 - Hypothyroidism, unspecified SNOMED: 88277886 (4) Adrenal insufficiency ICD Codes: E27.40 - Unspecified adrenocortical insufficiency SNOMED: 34010311, 675698730 (5) Abdominal distension (gaseous) ICD Codes: R14.0 - Abdominal distension (gaseous) SNOMED: 997098639 Assessment/Plan continue IVHC 25 mg IV every 8 hours until ready to leave the icu continue Levothyroxine 75 mcg IV daily - will change to 150 mcg tablet daily after he leaves the icu continue NISS Subjective Allergies: Coded Allergies: No Known Allergies (Unverified , 08/22/18) All Systems: reviewed and negative except above Subjective events noted Objective Last 24 Hour Vital Signs Date Time Temp Pulse Resp B/P (MAP) Pulse Ox O2 Delivery O2 Flow Rate FiO2 08/31/18 06:00 93 23 122/60 (80) 100 08/31/18 05:00 93 23 118/60 (79) 98 08/31/18 04:30 97 23 118/60 (79) 93 08/31/18 04:00 Venturi Mask 12.0 Venturi Mask Venturi Mask 08/31/18 04:00 98.8 98 20 109/54 (72) 98 08/31/18 04:00 97 08/31/18 03:00 98 21 128/65 (86) 98 08/31/18 02:00 99 21 108/62 (77) 98 08/31/18 01:00 97 21 100/47 (64) 97 08/31/18 00:00 112 08/31/18 00:00 100.1 108 21 125/57 (79) 98 08/31/18 00:00 Venturi Mask 12.0 Venturi Mask Venturi Mask 08/30/18 23:00 114 21 125/57 (79) 97 08/30/18 22:00 114 20 145/75 (98) 100 08/30/18 21:00 116 22 125/59 (81) 100 08/30/18 20:00 Venturi Mask 12.0 Venturi Mask Venturi Mask 08/30/18 20:00 99.1 112 18 151/70 (97) 97 08/30/18 20:00 106 08/30/18 19:00 108 18 135/72 (93) 100 08/30/18 18:46 Venturi Mask 12.0 40 08/30/18 18:00 106 15 133/70 (91) 100 08/30/18 17:00 108 15 138/72 (94) 100 08/30/18 16:00 115 08/30/18 16:00 Venturi Mask 12.0 Venturi Mask Venturi Mask 08/30/18 16:00 100.1 115 18 140/74 (96) 98 08/30/18 15:00 112 20 149/74 (99) 95 08/30/18 14:00 115 20 135/58 (83) 99 08/30/18 13:00 114 20 133/72 (92) 99 08/30/18 12:00 Venturi Mask 12.0 Venturi Mask Venturi Mask 08/30/18 12:00 118 08/30/18 12:00 99.5 115 18 111/58 (75) 98 08/30/18 11:00 101 20 138/77 (97) 99 08/30/18 10:34 109 24 100 Venturi Mask 40 08/30/18 10:00 104 20 135/74 (94) 99 08/30/18 10:00 109 22 90 Venturi Mask 12.0 40 08/30/18 09:00 105 21 130/70 (90) 99 08/30/18 08:00 110 08/30/18 08:00 Venturi Mask 12.0 Venturi Mask Venturi Mask 08/30/18 08:00 99.9 108 21 132/72 (92) 98 08/30/18 07:00 110 21 139/73 (95) 98 Intake and Output 08/30/18 08/31/18 19:00 07:00 Intake Total 1175 ml 1150 ml Output Total 895 ml 700 ml Balance 280 ml 450 ml IV Total 1175 ml 1150 ml Output Urine Total 895 ml 700 ml Laboratory Tests 08/30/18 16:00: Sodium Level 154H, Potassium Level 3.8, Chloride Level 114H, Carbon Dioxide Level 29, Anion Gap 11, Blood Urea Nitrogen 71H, Creatinine 2.3H, Estimat Glomerular Filtration Rate , Glucose Level 99, Lactic Acid Level 2.10H, Calcium Level 8.8, Total Bilirubin 0.6, Aspartate Amino Transf (AST/SGOT) 82H, Alanine Aminotransferase (ALT/SGPT) 47, Alkaline Phosphatase 52, Lactate Dehydrogenase 627H, Total Protein 6.1L, Albumin 2.5L, Globulin 3.6, Albumin/Globulin Ratio 0.7L, Coccidioides Antibody (Comp Fix) [Pending], Cryptococcus Antigen [Pending] , Mycoplasma pneumoniae IgG Antibody [Pending], Mycoplasma pneumoniae IgM Ab Titer [Pending] 08/30/18 17:00: Urine Legionella Antigen [Pending] 08/30/18 18:00: Lactic Acid Level 1.10 08/31/18 04:00: White Blood Count 10.8, Red Blood Count 3.33L, Hemoglobin 9.9L, Hematocrit 30.1L , Mean Corpuscular Volume 91, Mean Corpuscular Hemoglobin 29.8, Mean Corpuscular Hemoglobin Concent 32.9, Red Cell Distribution Width 12.8, Platelet Count 155, Mean Platelet Volume 6.3L, Neutrophils (%) (Auto) , Lymphocytes (%) ( Auto) , Monocytes (%) (Auto) , Eosinophils (%) (Auto) , Basophils (%) (Auto) , Phosphorus Level 2.3L, Magnesium Level 2.2 08/31/18 04:20: TB Test (T-Spot) [Pending], TB Test Nil Control (T-Spot) [Pending], TB Test Panel A (T-Spot) [Pending], TB Test Panel B (T-Spot) [Pending], TB Test Positive Control (T-Spot) [Pending] Height (Feet): 5 Height (Inches): 7.00 Weight (Pounds): 157 General Appearance: no apparent distress Neck: normal alignment Cardiovascular: normal rate Respiratory/Chest: decreased breath sounds Abdomen: hypoactive bowel sounds Pelvis: normal external exam Objective Current Medications Medications (Trade) Dose Ordered Sig/Elli Route PRN Reason Start Time Stop Time Status Last Admin Dose Admin Acetaminophen (Tylenol) 650 mg Q4H PRN RECTAL Mild Pain (Pain Scale 1-3) 08/26/18 11:00 09/25/18 10:59 08/29/18 20:09 Albuterol/ Ipratropium (Albuterol/ Ipratropium) 3 ml Q6H PRN HHN Shortness of Breath 08/27/18 21:45 09/01/18 21:29 08/27/18 21:33 Azithromycin 500 mg/Dextrose 275 ml @ 275 mls/hr Q24HRS IV 08/30/18 17:00 09/05/18 17:59 08/30/18 17:18 Chlorhexidine Gluconate (Gabriela-Hex 2%) 1 applic DAILY@2000 TOPIC 08/26/18 20:00 09/25/18 19:59 08/30/18 19:41 Clindamycin HCl/ Dextrose 50 ml @ 100 mls/hr Q8HR IV 08/30/18 22:00 09/06/18 21:59 08/31/18 05:35 Dextrose (Dextrose 50%) 25 ml Q30M PRN IV Hypoglycemia 08/25/18 08:30 09/21/18 23:29 Dextrose (Dextrose 50%) 50 ml Q30M PRN IV Hypoglycemia 08/25/18 08:30 09/21/18 23:29 Dextrose/ Electrolytes 1,000 ml @ 125 mls/hr Q8H IV 08/30/18 22:30 09/29/18 22:29 08/30/18 22:53 Guaifenesin/ Dextromethorphan (Robitussin DM Syrup) 5 ml Q6H PRN ORAL For Cough 08/25/18 08:30 09/23/18 08:29 Heparin Sodium (Porcine) (Heparin 5000 units/ml) 5,000 units EVERY 12 HOURS SUBQ 08/25/18 09:00 09/22/18 08:59 08/30/18 20:59 Hydrocortisone (Solu-CORTEF) 25 mg EVERY 8 HOURS IV 08/30/18 14:00 09/25/18 21:59 08/31/18 05:35 Insulin Aspart (NovoLOG) EVERY 6 HOURS SUBQ 08/25/18 12:00 09/22/18 00:00 08/31/18 05:36 Levothyroxine Sodium (Synthroid) 75 mcg DAILY IV 08/28/18 09:00 09/27/18 08:59 08/30/18 09:00 Lorazepam (Ativan 2mg/ml 1ml) 1 mg Q6H PRN IV For Anxiety 08/27/18 22:30 09/03/18 22:29 08/29/18 07:45 Meropenem 1 gm/ Sodium Chloride 100 ml @ 200 mls/hr Q12HR@0600,1800 IVPB 08/30/18 18:00 09/04/18 17:59 08/31/18 06:19 Ondansetron HCl (Zofran) 4 mg Q4H PRN IVP Nausea & Vomiting 08/25/18 09:15 09/22/18 17:03 08/27/18 20:40 Pantoprazole (Protonix) 40 mg DAILY ORAL 08/25/18 09:00 09/24/18 08:59 08/30/18 09:00 Tramadol HCl (Ultram) 50 mg TIDPRN PRN ORAL Pain level of 3-6 08/30/18 16:00 09/06/18 15:59 08/30/18 16:31 Voriconazole (Vfend) 200 mg Q12HR ORAL 08/30/18 21:00 09/06/18 20:59 08/30/18 20:58 Item Value Date Time Bedside Blood Glucose 126 mg/dl H 08/31/18 0600 Bedside Blood Glucose 130 mg/dl H 08/31/18 0020 Bedside Blood Glucose 115 mg/dl 08/30/18 1800 Bedside Blood Glucose 100 mg/dl 08/30/18 1200 Bedside Blood Glucose 168 mg/dl H 08/30/18 0600 Bedside Blood Glucose 92 mg/dl 08/30/18 0000 Stanford Baca MD Aug 31, 2018 07:00
--- NOTE | 2018-08-31 07:20 | NUR ---
HAND-OFF: Report given to FAY Wyatt per SBAR.
--- NOTE | 2018-08-31 07:25 | NUR ---
NURSE NOTES: Patient received from FAY Moody. Patient observed bedside. Patient is alert and awake however appears confused at times. patient follows commands and is able to make needs known. Patient does not appear in any acute distress and does not report any pain at this time. Patient is being monitored on the legal consultant VS 129/62, HR 91, RR 19, SP02 97%. Patient is on a venti mask at 12L on 40% and tolerating well. Patient has a diminished breath sounds and hyperactive belly sounds in all four quadrants. Patient has a reyes catheter draining to gravity. Patient is currently afebrile. Patient has a RADHA running D5W at 125 ml/hr. Safety measures are in place with bed locked in the lowest position, call light within place side rails up x 3. Will continue to monitor and follow plan of care.
[2018-08-31] MEDS: D5W w/KCl 20mEq 1,000 ML IV SCH ×3 (08:57→18:05)
[2018-08-31] MEDS ORDERED: Azithromycin 250mg tab ORAL SCH (09:00)
[2018-08-31] MEDS: Heparin 5000 units/ml inj SUBQ SCH ×2 (09:07→20:17)
--- NOTE | 2018-08-31 10:00 | NUR ---
NURSE NOTES: Patient cleaned, repositioned for comfort. VSS and not in any acute distress. Will continue to monitor.
--- NOTE | 2018-08-31 10:50 | NUR ---
ST NOTE: BEDSIDE SWALLOW EVAL RECEIVED BEDSIDE SWALLOW EVAL ORDER CHART REVIEWED PRIOR THE EVALUATION PT IS A 73-YEAR-OLD MALE WHO WAS ADMITTED TO HOSPITAL DUE TO SEPSIS. DURING THE HOSPITAL STAY, PT DEVELOPED ACUTE RESP FAILURE AND WAS INTUBATED ON 08/26/18 TO 08/29/18 FOR 3 DAYS. PT ALSO VOMITED AND NGT WAS PLACED TO SUCTION. DYSPHAGIA RISK FACTORS: ACUTE RESP FAILURE, PNA, INTUBATED FOR 3 DAYS, HTN, DMII, VIRGIL DZ, HERNIA, STAGE IV MELANOMA. CT HEAD: NEGATIVE. CXR: Mild interstitial prominence minimally improved and slightly worsened bibasilar streaky airspace opacities. PLOF: PT RESIDES AT HOME WITH FAMILY. CURRENT STATUS: PT SEEN AT BEDSIDE IN AM. ALERT, COOPERATIVE, FOLLOWS DIRECTIONS, VERBAL. PT WITH VENTURI MASK(12L, FIO2: 40%) PT DENIED ANY SWALLOWING DIFFICULTY. GIVEN PO TRIALS: THIN(TSP), NECTAR THICK(TSP) AND PUREE(TSP) INITIAL IMPRESSION: PROBABLE MILD OR WORSENED OROPHARYNGEAL DYSPHAGIA GOOD DENTITION MILD INCREASED ORAL TRANSIT TIME AND OROPHARYNGEAL TRANSIT TIME FAIR LARYNGEAL ELEVATION, NO OVERT S/S OF ASPIRATION. DUE TO PT'S CURRENT RESPIRATORY STATUS(HIGH FLOW OXYGEN), PT HAS RISK FOR ASPIRATION. RECOMMENDATIONS: 1. CONTINUE ORAL DIET. CHANGED DIET TO MOIST PUREE WITH NECTAR THICK LIQUIDS. 2. STRICT ASPIRATION PRECAUTIONS WITH 1TO1 FEEDING/SUPERVISION 3. VIDEOSWALLOW STUDY IP OR OP. D/W PT AND RNMILA. POSTED ASPIRATION/REFLUX PRECAUTIONS SIGN.
[2018-08-31 10:55] LABS: ANION GAP 10 mmol/L (5-15); BLOOD UREA NITROGEN 64 mg/dL (7-18); CALCIUM 9.1 MG/DL (8.5-10.1); CARBON DIOXIDE 28 MMOL/L (21-32); CHLORIDE 114 MMOL/L (98-107); CREATININE 2.1 MG/DL (0.55-1.30); POTASSIUM 4.4 MMOL/L (3.5-5.1); SODIUM 152 MMOL/L (136-145)
--- NOTE | 2018-08-31 11:42 | NUR ---
CASE MANAGEMENT: REVIEW SI: SEPSIS T 100.1 HR 116 RR 21 BP 100/47 SAT 97% VENTURI MASK 12.0 H/H 9.9/30.1 NA 152 BUN 64 CR 2.1 IS: SOLU CORTEF IV Q8HR DIFLUCAN IV Q24HR MEROPENEM IV Q12HR ST EVAL ICU STATUS DCP: PATIENT IS FROM HOME
--- NOTE | 2018-08-31 12:02 | NUR ---
RD ASSESSMENT & RECOMMENDATIONS SEE CARE ACTIVITY FOR COMPLETE ASSESSMENT DAILY ESTIMATED NEEDS: Needs based on CA, DM 70.5kg 25-30 kcals/kg 6403-0701 total kcals 1-1.5 g protein/kg 71-106 g total protein 25-30 mL/kg 5106-1013 total fluid mLs NUTRITION DIAGNOSIS: 1) Swallowing difficulty R/T respiratory status as evidenced by txr to ICU, s/p intubation, now s/p extubation, NGT to LIS dc'ed, seen by HI TEACHER w/ rec for pureed moist, NTL diet. CURRENT DIET:CCHO LOW, PUREED MOIST, NTL PO DIET RECOMMENDATIONS: CCHO MED, LOW NA/ texture per HI TEACHER ADDITIONAL RECOMMENDATIONS: 1) Calibrated bedscale wt for accurate CBW 2) Monitor PO intake and tolerance- s/p extubation 3) Monitor lytes, replete as needed -low phos 4) Monitor renal fxn- improving at this time . . .
--- NOTE | 2018-08-31 12:25 | NUR ---
NURSE NOTES: Patient observed bedside. Patient is alert, awake and confused intermittently. Patient at times removes his venti mask and forgets to put it back on while coughing his secretions. Patient is able to make needs to known and follows commands. Patient does not appear in any acute distress. Family is bedside and have spoken to each of the physicians at length regarding the care of the patient. Patient does not report any pain at this time. Patient is being monitored on the personnel monitor VSS. Patient is on a venti mask at 12L on 40% and tolerating well. Patient has a Sarmiento catheter draining to gravity. Patient has a low grade fever, cooling measures have been instituted. Patient has a RADHA running D5W at 125 ml/hr. Safety measures are in place with bed locked in the lowest position, call light within place side rails up x 3. Will continue to monitor and follow plan of care.
--- NOTE | 2018-08-31 12:35 | Infectious Diseases Prog Note ---
Assessment/Plan Assessment/Plan ASSESSMENT/PLAN: 1. 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 hcap, ? aspiration, respiratory failure, on vent, ROSA likely secondary to sepsis/hypotension, care home steroid use - ? OI infection and pna, ? PJP (PCP), ? aspergillus, ? other, sc- chavez albicans, fungemia risk - meropenem, azithromycin - start clindamycin plus primaquine to tx for pcp (try to avoid nephrotoxic meds such as bactrim since in ROSA) - start voriconazole for aspergillus treatment, oral only available per d/w pharmacy - base line G6PD ordered - benefits > risk of hemolytic anemia, patient in ROSA thus limits bactrim use and mepron not indicated in serious pjp infection - check CT scan of chest without contrast (ROSA) - consider bronchoscopy if no improvement - f/u on cultures, check serology - steroids - monitor labs, temps, chest x-ray - icu care, bp support, vent support - d/w Dr. Bonilla - d/w pharmacy - d/w family at length, answered multiple questions 2. The patient has a history of adrenal insufficiency. 3. History of melanoma in remission. 4. History of biliary sepsis, status post cholecystectomy. 5. Hypothyroidism. 6. Hypertension. 7. Diabetes. 8. History of cancer, which I believe is the melanoma. 9. Past medical history noted. 10. No known drug allergies. 11. Social history is negative. 12. Family history is negative. 13. MAR was noted. 14. Case was discussed with RN. 15. Case was discussed with Dr. Bonilla. 16. Case was discussed with the patient's family. 17. The patient was seen in the emergency room 18. The patient will need ICU care. 19. Continue treatment per primary consultants. 20. Notes and records were noted. 21. Orders were entered. 22. Case was discussed with pharmacy. 23. Skin care protocol. 24. Time spent - 45 minutes Subjective Constitutional: Reports: fatigue, other - on bm, no pressors ; Denies: fever - no fever today HEENT: Reports: congestion Respiratory: Reports: shortness of breath Cardiovascular: Denies: chest pain Gastrointestinal/Abdominal: Denies: nausea, vomiting, diarrhea Genitourinary: Reports: other - + reyes Neurologic: Denies: headache Psychiatric: Denies: depression Skin: Denies: rash Hematologic: Denies: bleeding Musculoskeletal: Denies: pain Allergies: Coded Allergies: No Known Allergies (Unverified , 08/22/18) Objective Vital Signs Last 24 Hour Vital Signs Date Time Temp Pulse Resp B/P (MAP) Pulse Ox O2 Delivery O2 Flow Rate FiO2 08/31/18 08:00 Venturi Mask 12.0 Venturi Mask Venturi Mask 08/31/18 07:28 97 Venturi Mask 12.0 40 08/31/18 07:27 Venturi Mask 12.0 40 08/31/18 07:00 94 23 151/62 (91) 100 08/31/18 06:00 93 23 122/60 (80) 100 08/31/18 05:00 93 23 118/60 (79) 98 08/31/18 04:30 97 23 118/60 (79) 93 08/31/18 04:00 Venturi Mask 12.0 Venturi Mask Venturi Mask 08/31/18 04:00 98.8 98 20 109/54 (72) 98 08/31/18 04:00 97 08/31/18 03:00 98 21 128/65 (86) 98 08/31/18 02:00 99 21 108/62 (77) 98 08/31/18 01:00 97 21 100/47 (64) 97 08/31/18 00:00 112 08/31/18 00:00 100.1 108 21 125/57 (79) 98 08/31/18 00:00 Venturi Mask 12.0 Venturi Mask Venturi Mask 08/30/18 23:00 114 21 125/57 (79) 97 08/30/18 22:00 114 20 145/75 (98) 100 08/30/18 21:00 116 22 125/59 (81) 100 08/30/18 20:00 Venturi Mask 12.0 Venturi Mask Venturi Mask 08/30/18 20:00 99.1 112 18 151/70 (97) 97 08/30/18 20:00 106 08/30/18 19:00 108 18 135/72 (93) 100 08/30/18 18:46 Venturi Mask 12.0 40 08/30/18 18:00 106 15 133/70 (91) 100 08/30/18 17:00 108 15 138/72 (94) 100 08/30/18 16:00 115 08/30/18 16:00 Venturi Mask 12.0 Venturi Mask Venturi Mask 08/30/18 16:00 100.1 115 18 140/74 (96) 98 08/30/18 15:00 112 20 149/74 (99) 95 08/30/18 14:00 115 20 135/58 (83) 99 08/30/18 13:00 114 20 133/72 (92) 99 Height (Feet): 5 Height (Inches): 7.00 Weight (Pounds): 157 General Appearance: no acute distress, other - nad, HEENT: normocephalic, atraumatic, anicteric Respiratory/Chest: crackles/rales, rhonchi - bilaterally Cardiovascular: normal rate, regular rhythm, no gallop/murmur, no JVD Abdomen: normal bowel sounds, soft, non tender, no organomegaly, non distended Genitourinary: other - + reyes - urine clear Extremities: no cyanosis Skin: no rash 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 What are probably hepatic cysts adjacent to the gallbladder fossa mimics fluid in the gallbladder fossa on the axial views, but appear to be cysts on the coronal images. Nonetheless, biloma or other pathologic collection not completely excludable Multiple nonobstructive left renal calculi Reyes catheter Bilateral basilar pulmonary interstitial prominence, nonspecific Scoliosis and spondylosis Chest x-ray - nad x 2, reports noted Chest x-ray - 08/25/18 Impression: Interval worsening of aeration with development of dense airspace opacities in the medial right mid/lower lung and patchy opacities in the right upper lung concerning for multifocal pneumonia. Perihilar interstitial opacities in the left raise question for a degree of underlying congestion/fluid overload. Clinical correlation/follow-up recommended. Findings discussed with ordering physician Dr. Bonilla at time of dictation of the final report. Chest - x-ray - 08/26/18 - Procedure: XRAY Chest 1v Indication: Shortness of breath Technique: One view of the chest Comparison: 08/25/2018 Findings: Less optimal inspiration currently Extensive bilateral infiltrates versus edema appear unchanged on the right, slightly worse on the left. There may be some pleural fluid on the left. The heart size is normal Impression: Bilateral infiltrates again demonstrated, slightly worse on the left over one Chest x-ray - 08/28 - COMPARISON: Chest x-rays dated 08/27/18 FINDINGS: Lungs: Patchy perihilar opacities, which may represent pulmonary edema versus infiltrates, not significantly changed compared to the prior exam. Pleural space: Unremarkable. The costophrenic angles are sharp. No visible pneumothorax. Heart: Unremarkable. No cardiomegaly. Mediastinum: Unremarkable. Bones/joints: Unremarkable. Tubes, lines and devices: Stable positioning of the endotracheal tube and nasogastric tube. EKG leads overlie the thorax. IMPRESSION: No significant interval change in the patchy perihilar opacities, which may represent pulmonary edema versus infiltrates. Chest x-ray - 08/30/18 - FINDINGS: Lungs: Mild interstitial prominence minimally improved and slightly worsened bibasilar streaky airspace opacities. Pleural space: Unremarkable. No pneumothorax. Heart: Unremarkable. No cardiomegaly. Mediastinum: Unremarkable. Bones/joints: Unremarkable. Soft tissues: Left neck surgical clips. Tubes, lines and devices: Stable right PICC line. Interval removal of the previously seen endotracheal tube and NG tube. IMPRESSION: Mild interstitial prominence minimally improved and slightly worsened bibasilar streaky airspace opacities. Microbiology Date/Time Source Procedure Growth Status 08/28/18 19:40 Blood Blood Culture - Preliminary NO GROWTH AFTER 48 HOURS Resulted 08/26/18 11:45 Sputum Gram Stain - Final Complete 08/26/18 11:45 Sputum Sputum Culture - Final NO GROWTH AFTER 48 HOURS Complete 08/24/18 08:00 Stool Stool Culture - Final NO SALMONELLA,SHIGELLA,OR CAMPYLOBACT... Complete 08/25/18 16:03 Indwelling Cath Urine Culture - Final NO GROWTH AFTER 48 HOURS Complete 08/22/18 20:30 Rectum VRE Culture - Final NO VANCOMYCIN RESISTANT ENTEROCOCCUS ... Complete 08/22/18 20:30 Rectum - Final NO CARBAPENEM-RESISTANT ENTEROBACTERI... Complete Microbiology Date/Time Source Procedure Growth Status 08/28/18 19:40 Blood Blood Culture - Preliminary NO GROWTH AFTER 48 HOURS Resulted 08/28/18 19:35 Blood Blood Culture - Preliminary NO GROWTH AFTER 48 HOURS Resulted Laboratory Tests Test 08/30/18 16:00 08/30/18 17:00 08/30/18 18:00 08/31/18 04:00 Sodium Level 154 MMOL/L (136-145) H 152 MMOL/L (136-145) H Potassium Level 3.8 MMOL/L (3.5-5.1) 4.4 MMOL/L (3.5-5.1) Chloride Level 114 MMOL/L (98-107) H 114 MMOL/L (98-107) H Carbon Dioxide Level 29 MMOL/L (21-32) 28 MMOL/L (21-32) Anion Gap 11 mmol/L (5-15) 10 mmol/L (5-15) Blood Urea Nitrogen 71 mg/dL (7-18) H 64 mg/dL (7-18) H Creatinine 2.3 MG/DL (0.55-1.30) H 2.1 MG/DL (0.55-1.30) H Estimat Glomerular Filtration Rate mL/min (>60) mL/min (>60) Glucose Level 99 MG/DL (74-106) 141 MG/DL (74-106) H Lactic Acid Level 2.10 mmol/L (0.4-2.0) H 1.10 mmol/L (0.66-2.22) Calcium Level 8.8 MG/DL (8.5-10.1) 9.1 MG/DL (8.5-10.1) Total Bilirubin 0.6 MG/DL (0.2-1.0) Aspartate Amino Transf (AST/SGOT) 82 U/L (15-37) H Alanine Aminotransferase (ALT/SGPT) 47 U/L (12-78) Alkaline Phosphatase 52 U/L (46-116) Lactate Dehydrogenase 627 U/L (81-234) H Total Protein 6.1 G/DL (6.4-8.2) L Albumin 2.5 G/DL (3.4-5.0) L Globulin 3.6 g/dL Albumin/Globulin Ratio 0.7 (1.0-2.7) L Coccidioides Antibody (Comp Fix) Pending Cryptococcus Antigen Pending Mycoplasma pneumoniae IgG Antibody Pending Mycoplasma pneumoniae IgM Ab Titer Pending Urine Legionella Antigen Pending White Blood Count 10.8 K/UL (4.8-10.8) Red Blood Count 3.33 M/UL (4.70-6.10) L Hemoglobin 9.9 G/DL (14.2-18.0) L Hematocrit 30.1 % (42.0-52.0) L Mean Corpuscular Volume 91 FL (80-99) Mean Corpuscular Hemoglobin 29.8 PG (27.0-31.0) Mean Corpuscular Hemoglobin Concent 32.9 G/DL (32.0-36.0) Red Cell Distribution Width 12.8 % (11.6-14.8) Platelet Count 155 K/UL (150-450) Mean Platelet Volume 6.3 FL (6.5-10.1) L Neutrophils (%) (Auto) % (45.0-75.0) Lymphocytes (%) (Auto) % (20.0-45.0) Monocytes (%) (Auto) % (1.0-10.0) Eosinophils (%) (Auto) % (0.0-3.0) Basophils (%) (Auto) % (0.0-2.0) Phosphorus Level 2.3 MG/DL (2.5-4.9) L Magnesium Level 2.2 MG/DL (1.8-2.4) Test 08/31/18 04:20 TB Test (T-Spot) Pending TB Test Nil Control (T-Spot) Pending TB Test Panel A (T-Spot) Pending TB Test Panel B (T-Spot) Pending TB Test Positive Control (T-Spot) Pending Current Medications Medications (Trade) Dose Ordered Sig/Elli Route PRN Reason Start Time Stop Time Status Last Admin Dose Admin Acetaminophen (Tylenol) 650 mg Q4H PRN RECTAL Mild Pain (Pain Scale 1-3) 08/26/18 11:00 09/25/18 10:59 08/29/18 20:09 Albuterol/ Ipratropium (Albuterol/ Ipratropium) 3 ml Q6H PRN HHN Shortness of Breath 08/27/18 21:45 09/01/18 21:29 08/27/18 21:33 Azithromycin 500 mg/Dextrose 275 ml @ 275 mls/hr Q24HRS IV 08/30/18 17:00 09/05/18 17:59 08/30/18 17:18 Chlorhexidine Gluconate (Gabriela-Hex 2%) 1 applic DAILY@2000 TOPIC 08/26/18 20:00 09/25/18 19:59 08/30/18 19:41 Clindamycin HCl/ Dextrose 50 ml @ 100 mls/hr Q8HR IV 08/30/18 22:00 09/06/18 21:59 08/31/18 05:35 Dextrose (Dextrose 50%) 25 ml Q30M PRN IV Hypoglycemia 08/25/18 08:30 09/21/18 23:29 Dextrose (Dextrose 50%) 50 ml Q30M PRN IV Hypoglycemia 08/25/18 08:30 09/21/18 23:29 Dextrose/ Electrolytes 1,000 ml @ 125 mls/hr Q8H IV 08/30/18 22:30 09/29/18 22:29 08/31/18 08:57 Guaifenesin/ Dextromethorphan (Robitussin DM Syrup) 5 ml Q6H PRN ORAL For Cough 08/25/18 08:30 09/23/18 08:29 Heparin Sodium (Porcine) (Heparin 5000 units/ml) 5,000 units EVERY 12 HOURS SUBQ 08/25/18 09:00 09/22/18 08:59 08/31/18 09:07 Hydrocortisone (Solu-CORTEF) 25 mg EVERY 8 HOURS IV 08/30/18 14:00 09/25/18 21:59 08/31/18 05:35 Insulin Aspart (NovoLOG) EVERY 6 HOURS SUBQ 08/25/18 12:00 09/22/18 00:00 08/31/18 05:36 Levothyroxine Sodium (Synthroid) 75 mcg DAILY IV 08/28/18 09:00 09/27/18 08:59 08/31/18 08:57 Lorazepam (Ativan 2mg/ml 1ml) 1 mg Q6H PRN IV For Anxiety 08/27/18 22:30 09/03/18 22:29 08/29/18 07:45 Meropenem 1 gm/ Sodium Chloride 100 ml @ 200 mls/hr Q12HR@0600,1800 IVPB 08/30/18 18:00 09/04/18 17:59 08/31/18 06:19 Ondansetron HCl (Zofran) 4 mg Q4H PRN IVP Nausea & Vomiting 08/25/18 09:15 09/22/18 17:03 08/27/18 20:40 Pantoprazole (Protonix) 40 mg DAILY ORAL 08/25/18 09:00 09/24/18 08:59 08/31/18 08:57 Primaquine Phosphate (Primaquine) 52.6 mg DAILY ORAL 09/01/18 10:30 10/01/18 10:29 Tramadol HCl (Ultram) 50 mg TIDPRN PRN ORAL Pain level of 3-6 08/30/18 16:00 09/06/18 15:59 08/30/18 16:31 Voriconazole (Vfend) 200 mg Q12HR ORAL 08/30/18 21:00 09/06/18 20:59 08/31/18 08:57 Treasure Vargas MD Aug 31, 2018 12:35
--- NOTE | 2018-08-31 12:47 | Diagnostic Imaging Report ---
APPROVED REPORT CPT Code: 98233 Present Symptoms Shortness of breath BILATERAL: Imaging reveals a patent deep venous system bilaterally. There is no evidence of thrombus within the femoral, popliteal or tibial segments. The greater saphenous veins are also within normal limits. Doppler indicates normal spontaneous flow within these segments.
--- NOTE | 2018-08-31 13:25 | GI Progress Note ---
Assessment/Plan Problems: (1) Healthcare-associated pneumonia ICD Codes: J18.9 - Pneumonia, unspecified organism SNOMED: 811369101 (2) Abdominal distension (gaseous) ICD Codes: R14.0 - Abdominal distension (gaseous) SNOMED: 806990257 (3) Respiratory failure ICD Codes: J96.90 - Respiratory failure, unspecified, unspecified whether with hypoxia or hypercapnia SNOMED: 995992023 (4) Anemia ICD Codes: D64.9 - Anemia, unspecified SNOMED: 056618978 Status: stable Status Narrative Discussed with Dr. Vera. Assessment/Plan patient extubated, now on venturi mask ICU care start puree diet pending swallow eval gastric occult blood stool positive patient will eventually need a EGD/colonoscopy when stable prn transfusions ppi fu labs The patient was seen and examined at bedside and all new and available data was reviewed in the patients chart. I agree with the above findings, impression and plan. (Patient seen earlier today. Signature stamp does not reflect patient encounter time.). - Nick Vera MD Subjective Subjective limited denies any abdominal pain Objective Last 24 Hour Vital Signs Date Time Temp Pulse Resp B/P (MAP) Pulse Ox O2 Delivery O2 Flow Rate FiO2 08/31/18 08:00 Venturi Mask 12.0 Venturi Mask Venturi Mask 08/31/18 07:28 97 Venturi Mask 12.0 40 08/31/18 07:27 Venturi Mask 12.0 40 08/31/18 07:00 94 23 151/62 (91) 100 08/31/18 06:00 93 23 122/60 (80) 100 08/31/18 05:00 93 23 118/60 (79) 98 08/31/18 04:30 97 23 118/60 (79) 93 08/31/18 04:00 Venturi Mask 12.0 Venturi Mask Venturi Mask 08/31/18 04:00 98.8 98 20 109/54 (72) 98 08/31/18 04:00 97 08/31/18 03:00 98 21 128/65 (86) 98 08/31/18 02:00 99 21 108/62 (77) 98 08/31/18 01:00 97 21 100/47 (64) 97 08/31/18 00:00 112 08/31/18 00:00 100.1 108 21 125/57 (79) 98 08/31/18 00:00 Venturi Mask 12.0 Venturi Mask Venturi Mask 08/30/18 23:00 114 21 125/57 (79) 97 08/30/18 22:00 114 20 145/75 (98) 100 08/30/18 21:00 116 22 125/59 (81) 100 08/30/18 20:00 Venturi Mask 12.0 Venturi Mask Venturi Mask 08/30/18 20:00 99.1 112 18 151/70 (97) 97 08/30/18 20:00 106 08/30/18 19:00 108 18 135/72 (93) 100 08/30/18 18:46 Venturi Mask 12.0 40 08/30/18 18:00 106 15 133/70 (91) 100 08/30/18 17:00 108 15 138/72 (94) 100 08/30/18 16:00 115 08/30/18 16:00 Venturi Mask 12.0 Venturi Mask Venturi Mask 08/30/18 16:00 100.1 115 18 140/74 (96) 98 08/30/18 15:00 112 20 149/74 (99) 95 08/30/18 14:00 115 20 135/58 (83) 99 Intake and Output 08/30/18 08/31/18 19:00 07:00 Intake Total 1175 ml 1150 ml Output Total 895 ml 750 ml Balance 280 ml 400 ml IV Total 1175 ml 1150 ml Output Urine Total 895 ml 750 ml Laboratory Tests Test 08/30/18 16:00 08/30/18 17:00 08/30/18 18:00 08/31/18 04:00 Sodium Level 154 MMOL/L (136-145) H 152 MMOL/L (136-145) H Potassium Level 3.8 MMOL/L (3.5-5.1) 4.4 MMOL/L (3.5-5.1) Chloride Level 114 MMOL/L (98-107) H 114 MMOL/L (98-107) H Carbon Dioxide Level 29 MMOL/L (21-32) 28 MMOL/L (21-32) Anion Gap 11 mmol/L (5-15) 10 mmol/L (5-15) Blood Urea Nitrogen 71 mg/dL (7-18) H 64 mg/dL (7-18) H Creatinine 2.3 MG/DL (0.55-1.30) H 2.1 MG/DL (0.55-1.30) H Estimat Glomerular Filtration Rate mL/min (>60) mL/min (>60) Glucose Level 99 MG/DL (74-106) 141 MG/DL (74-106) H Lactic Acid Level 2.10 mmol/L (0.4-2.0) H 1.10 mmol/L (0.66-2.22) Calcium Level 8.8 MG/DL (8.5-10.1) 9.1 MG/DL (8.5-10.1) Total Bilirubin 0.6 MG/DL (0.2-1.0) Aspartate Amino Transf (AST/SGOT) 82 U/L (15-37) H Alanine Aminotransferase (ALT/SGPT) 47 U/L (12-78) Alkaline Phosphatase 52 U/L (46-116) Lactate Dehydrogenase 627 U/L (81-234) H Total Protein 6.1 G/DL (6.4-8.2) L Albumin 2.5 G/DL (3.4-5.0) L Globulin 3.6 g/dL Albumin/Globulin Ratio 0.7 (1.0-2.7) L Coccidioides Antibody (Comp Fix) Pending Cryptococcus Antigen Pending Mycoplasma pneumoniae IgG Antibody Pending Mycoplasma pneumoniae IgM Ab Titer Pending Urine Legionella Antigen Pending White Blood Count 10.8 K/UL (4.8-10.8) Red Blood Count 3.33 M/UL (4.70-6.10) L Hemoglobin 9.9 G/DL (14.2-18.0) L Hematocrit 30.1 % (42.0-52.0) L Mean Corpuscular Volume 91 FL (80-99) Mean Corpuscular Hemoglobin 29.8 PG (27.0-31.0) Mean Corpuscular Hemoglobin Concent 32.9 G/DL (32.0-36.0) Red Cell Distribution Width 12.8 % (11.6-14.8) Platelet Count 155 K/UL (150-450) Mean Platelet Volume 6.3 FL (6.5-10.1) L Neutrophils (%) (Auto) % (45.0-75.0) Lymphocytes (%) (Auto) % (20.0-45.0) Monocytes (%) (Auto) % (1.0-10.0) Eosinophils (%) (Auto) % (0.0-3.0) Basophils (%) (Auto) % (0.0-2.0) Phosphorus Level 2.3 MG/DL (2.5-4.9) L Magnesium Level 2.2 MG/DL (1.8-2.4) Test 08/31/18 04:20 TB Test (T-Spot) Pending TB Test Nil Control (T-Spot) Pending TB Test Panel A (T-Spot) Pending TB Test Panel B (T-Spot) Pending TB Test Positive Control (T-Spot) Pending Height (Feet): 5 Height (Inches): 7.00 Weight (Pounds): 157 General Appearance: alert Cardiovascular: normal rate Respiratory/Chest: normal breath sounds, no respiratory distress, other - venturi mask Abdominal Exam: normal bowel sounds, non tender, soft Extremities: non-tender Huang Chavez NP Aug 31, 2018 13:25
--- NOTE | 2018-08-31 14:30 | NUR ---
NURSE NOTES: Patient taken to CT scan. Patient returned to the ICU. Patient tolerated the procedure. VSS and patient is not in any acute distress. Patient is very anxious asking for results. Will defer to MDs.
--- NOTE | 2018-08-31 14:49 | Diagnostic Imaging Report ---
Indication: Shortness of breath, pneumonia Technique: CT chest was performed utilizing automated exposure control without intravenous contrast material. Axial sagittal and coronal images were generated. CT dose: Total DLP 569.35 mGycm; CTDI vol 17.67 mGy Comparison: Chest radiograph 08/30/2018 Findings: There are patchy bilateral groundglass airspace opacities. These are predominantly perihilar in location. There are some scattered foci of peribronchial thickening. There are small bilateral pleural effusions and adjacent likely compressive atelectasis in the bilateral posterior lower lobes. There is no pneumothorax. There is mild smooth septal thickening. Heart size within normal limits. There is hypoattenuation of the blood pool relative to the septum suggesting anemia. Previous noted endotracheal tube has been removed. Small mediastinal lymph nodes are noted, possibly reactive in etiology. Portions of a right arm PICC are partially visualized with the tip in the region of the lower superior vena cava/cavoatrial junction. Nonspecific perinephric stranding is partially visualized bilaterally. There is a small hiatal hernia. Otherwise imaged portions of the upper abdomen unremarkable. There are degenerative changes of the spine without acute osseous abnormality. IMPRESSION: * Bilateral predominantly perihilar nonspecific groundglass opacities may be reflective of a multifocal pneumonia. Component of edema may also be likely especially given mild smooth septal thickening. Correlate clinically. * Small bilateral pleural effusions adjacent atelectasis/consolidation in the posterior lower lobes. * Findings suggestive of anemia. The CT scanner at [facility] is accredited by the [employer] and the scans are performed using protocols designed to limit radiation exposure to as low as reasonably achievable to attain images of sufficient resolution adequate for diagnostic evaluation.
--- NOTE | 2018-08-31 15:49 | Pulmonology Progress Note ---
Assessment/Plan Assessment/Plan IMPRESSION: 1. Malignant melanoma. 2. [place]'s disease. 3. Sepsis? 4. S/p extubation DISCUSSION: Continue present care CXR better; has improving FiO2 requirements Await CT chest results Will discuss bronch vs endotracheal lavage with ID Aj Harding M.D. Subjective Interval Events: Extubated; tolerating diet Constitutional: Reports: no symptoms HEENT: Repors: no symptoms Respiratory: Reports: no symptoms Cardiovascular: Reports: no symptoms Gastrointestinal/Abdominal: Reports: no symptoms Psychiatric: Reports: no symptoms Allergies: Coded Allergies: No Known Allergies (Unverified , 08/22/18) Objective Last 24 Hour Vital Signs Date Time Temp Pulse Resp B/P (MAP) Pulse Ox O2 Delivery O2 Flow Rate FiO2 08/31/18 12:00 Venturi Mask 12.0 Venturi Mask Venturi Mask 08/31/18 10:00 84 17 106/57 (73) 100 08/31/18 09:00 89 20 132/71 (91) 100 08/31/18 08:00 98.6 94 19 129/62 (84) 100 08/31/18 08:00 Venturi Mask 12.0 Venturi Mask Venturi Mask 08/31/18 07:28 97 Venturi Mask 12.0 40 08/31/18 07:27 Venturi Mask 12.0 40 08/31/18 07:00 94 23 151/62 (91) 100 08/31/18 06:00 93 23 122/60 (80) 100 08/31/18 05:00 93 23 118/60 (79) 98 08/31/18 04:30 97 23 118/60 (79) 93 08/31/18 04:00 Venturi Mask 12.0 Venturi Mask Venturi Mask 08/31/18 04:00 98.8 98 20 109/54 (72) 98 08/31/18 04:00 97 08/31/18 03:00 98 21 128/65 (86) 98 08/31/18 02:00 99 21 108/62 (77) 98 08/31/18 01:00 97 21 100/47 (64) 97 08/31/18 00:00 112 08/31/18 00:00 100.1 108 21 125/57 (79) 98 08/31/18 00:00 Venturi Mask 12.0 Venturi Mask Venturi Mask 08/30/18 23:00 114 21 125/57 (79) 97 08/30/18 22:00 114 20 145/75 (98) 100 08/30/18 21:00 116 22 125/59 (81) 100 08/30/18 20:00 Venturi Mask 12.0 Venturi Mask Venturi Mask 08/30/18 20:00 99.1 112 18 151/70 (97) 97 08/30/18 20:00 106 08/30/18 19:00 108 18 135/72 (93) 100 08/30/18 18:46 Venturi Mask 12.0 40 08/30/18 18:00 106 15 133/70 (91) 100 08/30/18 17:00 108 15 138/72 (94) 100 08/30/18 16:00 115 08/30/18 16:00 Venturi Mask 12.0 Venturi Mask Venturi Mask 08/30/18 16:00 100.1 115 18 140/74 (96) 98 Intake and Output 08/30/18 08/31/18 19:00 07:00 Intake Total 1175 ml 1150 ml Output Total 895 ml 750 ml Balance 280 ml 400 ml IV Total 1175 ml 1150 ml Output Urine Total 895 ml 750 ml General Appearance: no acute distress HEENT: normocephalic Respiratory/Chest: chest wall non-tender, lungs clear Cardiovascular: normal peripheral pulses, normal rate Abdomen: normal bowel sounds Microbiology Date/Time Source Procedure Growth Status 08/28/18 19:40 Blood Blood Culture - Preliminary NO GROWTH AFTER 48 HOURS Resulted 08/28/18 19:35 Blood Blood Culture - Preliminary NO GROWTH AFTER 48 HOURS Resulted Laboratory Tests 08/30/18 16:00: Sodium Level 154H, Potassium Level 3.8, Chloride Level 114H, Carbon Dioxide Level 29, Anion Gap 11, Blood Urea Nitrogen 71H, Creatinine 2.3H, Estimat Glomerular Filtration Rate , Glucose Level 99, Lactic Acid Level 2.10H, Calcium Level 8.8, Total Bilirubin 0.6, Aspartate Amino Transf (AST/SGOT) 82H, Alanine Aminotransferase (ALT/SGPT) 47, Alkaline Phosphatase 52, Lactate Dehydrogenase 627H, Total Protein 6.1L, Albumin 2.5L, Globulin 3.6, Albumin/Globulin Ratio 0.7L, Coccidioides Antibody (Comp Fix) [Pending], Cryptococcus Antigen [Pending] , Mycoplasma pneumoniae IgG Antibody [Pending], Mycoplasma pneumoniae IgM Ab Titer [Pending] 08/30/18 17:00: Urine Legionella Antigen [Pending] 08/30/18 18:00: Lactic Acid Level 1.10 08/31/18 04:00: Sodium Level 152H, Potassium Level 4.4, Chloride Level 114H, Carbon Dioxide Level 28, Anion Gap 10, Blood Urea Nitrogen 64H, Creatinine 2.1H, Estimat Glomerular Filtration Rate , Glucose Level 141H, Calcium Level 9.1, White Blood Count 10.8, Red Blood Count 3.33L, Hemoglobin 9.9L, Hematocrit 30.1L, Mean Corpuscular Volume 91, Mean Corpuscular Hemoglobin 29.8, Mean Corpuscular Hemoglobin Concent 32.9, Red Cell Distribution Width 12.8, Platelet Count 155, Mean Platelet Volume 6.3L, Neutrophils (%) (Auto) , Lymphocytes (%) (Auto) , Monocytes (%) (Auto) , Eosinophils (%) (Auto) , Basophils (%) (Auto) , Phosphorus Level 2.3L, Magnesium Level 2.2 08/31/18 04:20: TB Test (T-Spot) [Pending], TB Test Nil Control (T-Spot) [Pending], TB Test Panel A (T-Spot) [Pending], TB Test Panel B (T-Spot) [Pending], TB Test Positive Control (T-Spot) [Pending] 08/31/18 13:10: Sdszooz-1-Ncbanakvd Dehydrogenase [Pending], RBC Gjygofs-4-Vbemufhth Dehydrogen [Pending] Current Medications Medications (Trade) Dose Ordered Sig/Elli Route PRN Reason Start Time Stop Time Status Last Admin Dose Admin Acetaminophen (Tylenol) 650 mg Q4H PRN RECTAL Mild Pain (Pain Scale 1-3) 08/26/18 11:00 09/25/18 10:59 08/29/18 20:09 Albuterol/ Ipratropium (Albuterol/ Ipratropium) 3 ml Q6H PRN HHN Shortness of Breath 08/27/18 21:45 09/01/18 21:29 08/27/18 21:33 Azithromycin 500 mg/Dextrose 275 ml @ 275 mls/hr Q24HRS IV 08/30/18 17:00 09/05/18 17:59 08/30/18 17:18 Chlorhexidine Gluconate (Gabriela-Hex 2%) 1 applic DAILY@2000 TOPIC 08/26/18 20:00 09/25/18 19:59 08/30/18 19:41 Clindamycin HCl/ Dextrose 50 ml @ 100 mls/hr Q8HR IV 08/30/18 22:00 09/06/18 21:59 08/31/18 15:35 Dextrose (Dextrose 50%) 25 ml Q30M PRN IV Hypoglycemia 08/25/18 08:30 09/21/18 23:29 Dextrose (Dextrose 50%) 50 ml Q30M PRN IV Hypoglycemia 08/25/18 08:30 09/21/18 23:29 Dextrose/ Electrolytes 1,000 ml @ 125 mls/hr Q8H IV 08/30/18 22:30 09/29/18 22:29 08/31/18 15:34 Guaifenesin/ Dextromethorphan (Robitussin DM Syrup) 5 ml Q6H PRN ORAL For Cough 08/25/18 08:30 09/23/18 08:29 Heparin Sodium (Porcine) (Heparin 5000 units/ml) 5,000 units EVERY 12 HOURS SUBQ 08/25/18 09:00 09/22/18 08:59 08/31/18 09:07 Hydrocortisone (Solu-CORTEF) 25 mg EVERY 8 HOURS IV 08/30/18 14:00 09/25/18 21:59 08/31/18 15:35 Insulin Aspart (NovoLOG) EVERY 6 HOURS SUBQ 08/25/18 12:00 09/22/18 00:00 08/31/18 13:17 Levothyroxine Sodium (Synthroid) 75 mcg DAILY IV 08/28/18 09:00 09/27/18 08:59 08/31/18 08:57 Lorazepam (Ativan 2mg/ml 1ml) 1 mg Q6H PRN IV For Anxiety 08/27/18 22:30 09/03/18 22:29 08/29/18 07:45 Meropenem 1 gm/ Sodium Chloride 100 ml @ 200 mls/hr Q12HR@0600,1800 IVPB 08/30/18 18:00 09/04/18 17:59 08/31/18 06:19 Ondansetron HCl (Zofran) 4 mg Q4H PRN IVP Nausea & Vomiting 08/25/18 09:15 09/22/18 17:03 08/27/18 20:40 Pantoprazole (Protonix) 40 mg DAILY ORAL 08/25/18 09:00 09/24/18 08:59 08/31/18 08:57 Primaquine Phosphate (Primaquine) 52.6 mg DAILY ORAL 09/01/18 10:30 10/01/18 10:29 Tramadol HCl (Ultram) 50 mg TIDPRN PRN ORAL Pain level of 3-6 08/30/18 16:00 09/06/18 15:59 08/30/18 16:31 Voriconazole (Vfend) 200 mg Q12HR ORAL 08/30/18 21:00 09/06/18 20:59 08/31/18 08:57 Aj Harding MD Aug 31, 2018 15:49
--- NOTE | 2018-08-31 16:40 | NUR ---
NURSE NOTES: Patient observed bedside. Patient is resting comfortably and easily arousable. Patient wakes up and is alert and oriented. Patient verbally makes his needs known. Patient does not appear in any acute distress. Family is bedside and have spoken to each of the physicians at length regarding the care of the patient. Patient does not report any pain at this time. Patient is being monitored on the cardiac surgeon VSS. Patient is on a venti mask at 12L and now on 30% and tolerating well. Patient has a Sarmiento catheter draining to gravity. Patient has a low grade fever, cooling measures have been instituted. Patient has a RADHA running D5W at 125 ml/hr. Safety measures are in place with bed locked in the lowest position, call light within place side rails up x 3. Will continue to monitor and follow plan of care.
--- NOTE | 2018-08-31 17:12 | Nephrology Progress Note ---
Assessment/Plan Problem List: (1) Respiratory failure (2) ROSA (acute kidney injury) (3) Sepsis (4) Adrenal insufficiency (5) Healthcare-associated pneumonia Plan cxr not better may represent pneumonia rather than chf, will stop lasix for now, replace K, now off pressors, hydrate , Lm low likely prerenal, avoid over hydration Na high iv now D5W, hope to dc reyes in am extubated improving Subjective Constitutional: Reports: weakness HEENT: Reports: no symptoms Genitourinary: Reports: no symptoms Neurologic/Psychiatric: Reports: weakness Objective Objective Last 24 Hour Vital Signs Date Time Temp Pulse Resp B/P (MAP) Pulse Ox O2 Delivery O2 Flow Rate FiO2 08/31/18 16:00 Venturi Mask 12.0 Venturi Mask Venturi Mask 08/31/18 16:00 99.0 80 27 137/88 (104) 93 08/31/18 15:00 81 16 127/75 (92) 97 08/31/18 14:00 79 14 134/71 (92) 98 08/31/18 13:00 80 18 121/72 (88) 96 08/31/18 12:00 99.2 84 17 142/80 (100) 97 08/31/18 12:00 Venturi Mask 12.0 Venturi Mask Venturi Mask 08/31/18 11:00 85 18 118/59 (78) 97 08/31/18 10:00 84 17 106/57 (73) 100 08/31/18 09:00 89 20 132/71 (91) 100 08/31/18 08:00 98.6 94 19 129/62 (84) 100 08/31/18 08:00 Venturi Mask 12.0 Venturi Mask Venturi Mask 08/31/18 07:28 97 Venturi Mask 12.0 40 08/31/18 07:27 Venturi Mask 12.0 40 08/31/18 07:00 94 23 151/62 (91) 100 08/31/18 06:00 93 23 122/60 (80) 100 08/31/18 05:00 93 23 118/60 (79) 98 08/31/18 04:30 97 23 118/60 (79) 93 08/31/18 04:00 Venturi Mask 12.0 Venturi Mask Venturi Mask 08/31/18 04:00 98.8 98 20 109/54 (72) 98 12/26/18 04:00 97 08/31/18 03:00 98 21 128/65 (86) 98 08/31/18 02:00 99 21 108/62 (77) 98 08/31/18 01:00 97 21 100/47 (64) 97 08/31/18 00:00 112 08/31/18 00:00 100.1 108 21 125/57 (79) 98 08/31/18 00:00 Venturi Mask 12.0 Venturi Mask Venturi Mask 08/30/18 23:00 114 21 125/57 (79) 97 08/30/18 22:00 114 20 145/75 (98) 100 08/30/18 21:00 116 22 125/59 (81) 100 08/30/18 20:00 Venturi Mask 12.0 Venturi Mask Venturi Mask 08/30/18 20:00 99.1 112 18 151/70 (97) 97 08/30/18 20:00 106 08/30/18 19:00 108 18 135/72 (93) 100 08/30/18 18:46 Venturi Mask 12.0 40 08/30/18 18:00 106 15 133/70 (91) 100 Intake and Output 08/30/18 08/31/18 18:59 06:59 Intake Total 1075 ml 1250 ml Output Total 920 ml 750 ml Balance 155 ml 500 ml IV Total 1075 ml 1250 ml Output Urine Total 920 ml 750 ml Laboratory Tests 08/30/18 18:00: Lactic Acid Level 1.10 08/31/18 04:00: White Blood Count 10.8, Red Blood Count 3.33L, Hemoglobin 9.9L, Hematocrit 30.1L , Mean Corpuscular Volume 91, Mean Corpuscular Hemoglobin 29.8, Mean Corpuscular Hemoglobin Concent 32.9, Red Cell Distribution Width 12.8, Platelet Count 155, Mean Platelet Volume 6.3L, Neutrophils (%) (Auto) , Lymphocytes (%) ( Auto) , Monocytes (%) (Auto) , Eosinophils (%) (Auto) , Basophils (%) (Auto) , Sodium Level 152H, Potassium Level 4.4, Chloride Level 114H, Carbon Dioxide Level 28, Anion Gap 10, Blood Urea Nitrogen 64H, Creatinine 2.1H, Estimat Glomerular Filtration Rate , Glucose Level 141H, Calcium Level 9.1, Phosphorus Level 2.3L, Magnesium Level 2.2 08/31/18 04:20: TB Test (T-Spot) [Pending], TB Test Nil Control (T-Spot) [Pending], TB Test Panel A (T-Spot) [Pending], TB Test Panel B (T-Spot) [Pending], TB Test Positive Control (T-Spot) [Pending] 08/31/18 13:10: Rzprkbg-0-Vvtaajcjc Dehydrogenase [Pending], RBC Iclvmhg-2-Gtphpspzv Dehydrogen [Pending] Height (Feet): 5 Height (Inches): 7.00 Weight (Pounds): 157 General Appearance: no apparent distress, alert EENT: normal ENT inspection Neck: normal alignment Cardiovascular: normal rate, regular rhythm Respiratory/Chest: rhonchi - bilaterally Abdomen: non tender, soft, no organomegaly Extremities: other - no edema Neurologic: manufacturing team member II-XII grossly normal Cesar Nunez MD Aug 31, 2018 17:12
[2018-08-31] MEDS: Azithromycin 500 MG in D5W 275 ML IV SCH (18:05)
--- NOTE | 2018-08-31 19:00 | NUR ---
NURSE NOTES: Endorsement received from FAY Wyatt. Patient opens eyes to voice, follows simple commands, able to communicate needs. Receiving oxygen 30% per aerosol mask. With right upper arm PICC, ongoing D5W with 20 KCl at 50 ml/hr. Sarmiento catheter connected to urimeter. Sarmiento to be discontinued. Head of bed elevated. Bed locked and in low position. Bed alarm on.
--- NOTE | 2018-08-31 19:17 | General Surgery Progress Note ---
General Surgery-Progress Note Subjective Additional Comments improving. awake and responsive following commands. comfortable. Objective Last 24 Hour Vital Signs Date Time Temp Pulse Resp B/P (MAP) Pulse Ox O2 Delivery O2 Flow Rate FiO2 08/31/18 18:00 77 19 134/69 (90) 96 08/31/18 17:00 77 17 154/74 (100) 100 08/31/18 16:00 78 08/31/18 16:00 Venturi Mask 12.0 Venturi Mask Venturi Mask 08/31/18 16:00 99.0 80 27 137/88 (104) 93 08/31/18 15:00 81 16 127/75 (92) 97 08/31/18 14:00 79 14 134/71 (92) 98 08/31/18 13:00 80 18 121/72 (88) 96 08/31/18 12:00 99.2 84 17 142/80 (100) 97 08/31/18 12:00 90 08/31/18 12:00 Venturi Mask 12.0 Venturi Mask Venturi Mask 08/31/18 11:00 85 18 118/59 (78) 97 08/31/18 10:00 84 17 106/57 (73) 100 08/31/18 09:00 89 20 132/71 (91) 100 08/31/18 08:00 98.6 94 19 129/62 (84) 100 08/31/18 08:00 95 08/31/18 08:00 Venturi Mask 12.0 Venturi Mask Venturi Mask 08/31/18 07:28 97 Venturi Mask 12.0 40 08/31/18 07:27 Venturi Mask 12.0 40 08/31/18 07:00 94 23 151/62 (91) 100 08/31/18 06:00 93 23 122/60 (80) 100 08/31/18 05:00 93 23 118/60 (79) 98 08/31/18 04:30 97 23 118/60 (79) 93 08/31/18 04:00 Venturi Mask 12.0 Venturi Mask Venturi Mask 08/31/18 04:00 98.8 98 20 109/54 (72) 98 08/31/18 04:00 97 08/31/18 03:00 98 21 128/65 (86) 98 08/31/18 02:00 99 21 108/62 (77) 98 08/31/18 01:00 97 21 100/47 (64) 97 08/31/18 00:00 112 08/31/18 00:00 100.1 108 21 125/57 (79) 98 08/31/18 00:00 Venturi Mask 12.0 Venturi Mask Venturi Mask 08/30/18 23:00 114 21 125/57 (79) 97 08/30/18 22:00 114 20 145/75 (98) 100 08/30/18 21:00 116 22 125/59 (81) 100 08/30/18 20:00 Venturi Mask 12.0 Venturi Mask Venturi Mask 08/30/18 20:00 99.1 112 18 151/70 (97) 97 08/30/18 20:00 106 I&O Intake and Output 08/30/18 08/31/18 18:59 06:59 Intake Total 1075 ml 1250 ml Output Total 920 ml 750 ml Balance 155 ml 500 ml IV Total 1075 ml 1250 ml Output Urine Total 920 ml 750 ml Drains: none Cardiovascular: RSR Respiratory: clear, decreased breath sounds Abdomen: soft, non-tender, present bowel sounds Extremities: no cyanosis Laboratory Tests Test 08/31/18 04:00 08/31/18 04:20 08/31/18 13:10 White Blood Count 10.8 K/UL (4.8-10.8) Red Blood Count 3.33 M/UL (4.70-6.10) L Hemoglobin 9.9 G/DL (14.2-18.0) L Hematocrit 30.1 % (42.0-52.0) L Mean Corpuscular Volume 91 FL (80-99) Mean Corpuscular Hemoglobin 29.8 PG (27.0-31.0) Mean Corpuscular Hemoglobin Concent 32.9 G/DL (32.0-36.0) Red Cell Distribution Width 12.8 % (11.6-14.8) Platelet Count 155 K/UL (150-450) Mean Platelet Volume 6.3 FL (6.5-10.1) L Neutrophils (%) (Auto) % (45.0-75.0) Lymphocytes (%) (Auto) % (20.0-45.0) Monocytes (%) (Auto) % (1.0-10.0) Eosinophils (%) (Auto) % (0.0-3.0) Basophils (%) (Auto) % (0.0-2.0) Sodium Level 152 MMOL/L (136-145) H Potassium Level 4.4 MMOL/L (3.5-5.1) Chloride Level 114 MMOL/L (98-107) H Carbon Dioxide Level 28 MMOL/L (21-32) Anion Gap 10 mmol/L (5-15) Blood Urea Nitrogen 64 mg/dL (7-18) H Creatinine 2.1 MG/DL (0.55-1.30) H Estimat Glomerular Filtration Rate mL/min (>60) Glucose Level 141 MG/DL (74-106) H Calcium Level 9.1 MG/DL (8.5-10.1) Phosphorus Level 2.3 MG/DL (2.5-4.9) L Magnesium Level 2.2 MG/DL (1.8-2.4) TB Test (T-Spot) Pending TB Test Nil Control (T-Spot) Pending TB Test Panel A (T-Spot) Pending TB Test Panel B (T-Spot) Pending TB Test Positive Control (T-Spot) Pending Rinmgmd-9-Bquqwpwbh Dehydrogenase Pending RBC Eqixzqo-9-Rvuktwnsy Dehydrogen Pending Plan Problems: (1) Sepsis (2) Abdominal distension (gaseous) Assessment & Plan: Abdominal distention / discomfort. no n/v/f/c. +flatus. feels bloated. exam with mild distention/non tender CT - Mildly fluid-filled small bowel loops, nonspecific, No acute process otherwise, Postcholecystectomy changes. What are probably hepatic cysts adjacent to the gallbladder fossa mimics fluid in the gallbladder fossa on the axial views, but appear to be cysts on the coronal images. Nonetheless, biloma or other pathologic collection not completely excludable Multiple nonobstructive left renal calculi Sarmiento catheter Bilateral basilar pulmonary interstitial prominence, nonspecific Scoliosis and spondylosis KUB - Nonspecific prominent but not frankly dilated gas-filled small bowel loops , decreased from previous day's exam Satisfactory position right groin central venous catheter worsening respiratory status requiring intubation abdominal exam unchanged KUB okay no signs of obstruction more awake today labs improved. gas okay -no acute surgical intervention planned -Rx as written -appreciate ICU team care -will follow clinically with exams thank you for allowing me to participate in patients care David Daley Aug 31, 2018 19:17
[2018-08-31 19:50] LABS: APPEARANCE,URINE SLIGHTLY CLOUDY; BILIRUBIN, URINE NEGATIVE (NEGATIVE); COLOR,URINE PALE YELLOW; GLUCOSE, URINE (UA) NEGATIVE (NEGATIVE); KETONES,URINE NEGATIVE (NEGATIVE); LEUKOCYTE ESTERASE ,URINE NEGATIVE (NEGATIVE); NITRITE,URINE NEGATIVE (NEGATIVE); PH,URINE 5 (4.5-8.0); PROTEIN,URINE 3+ (NEGATIVE); UROBILINOGEN,URINE NORMAL MG/DL (0.0-1.0)
--- NOTE | 2018-08-31 20:00 | NUR ---
NURSE NOTES: Patient saturation 89-91%. Increased to 40% per aerosol mask. Head of bed kept elevated.
[2018-08-31] MEDS: Dyna-Hex 2% Top Sol 2oz TOPIC SCH (20:16)
[2018-08-31] MEDS: D5W IV SCH (20:16)
[2018-08-31] MEDS: SULFAMETHOXAZOLE IV SCH (20:16)
[2018-08-31] MEDS: TRIMETHOPRIM IV SCH (20:16)
[2018-08-31] MEDS ORDERED: Trimethoprim/Sulfamethoxazole 10 ML in D5W 275 ML IVPB SCH (21:00)
--- NOTE | 2018-08-31 22:00 | NUR ---
NURSE NOTES: Patient asleep. Appears comfortable. Saturation 91%-93% at 40%.
--- NOTE | 2018-08-31 23:00 | NUR ---
NURSE NOTES: saturation between 89%-93%, increased to oxygen increased to 50%. Will continue to monitor.
[2018-09-01] VITALS (24 sets, daily range): BP systolic 93–150; BP diastolic 47–102
--- NOTE | 2018-09-01 | NUR ---
NURSE NOTES: Saturation 91% most of the time. Ranges between 89%-93%. Patient asleep, arousable per name. Called Dr. Harding for any further order, no new order at this time.
--- NOTE | 2018-09-01 02:00 | NUR ---
NURSE NOTES: Patient awake, repositioned. O2 sat at 93%
--- NOTE | 2018-09-01 02:30 | Progress Note ---
DATE: 08/31/2018 INTERNAL MEDICINE PROGRESS NOTE, CRITICAL CARE SUBJECTIVE: The patient has been extubated for two to three days. He is tolerating a diet. He still is on high flow oxygen. CAT scan of the chest revealed diffuse ground-glass appearance and infiltrates. OBJECTIVE: VITAL SIGNS: Blood pressure 106/57, pulse 84, and respiratory rate 17. LUNGS: Coarse breath sounds and rhonchi. CARDIAC: Regular rhythm and rate. Normal S1 and S2. ABDOMEN: Soft. EXTREMITIES: No edema. LABORATORY DATA: White count 10.8 and hemoglobin 9.9. Sodium 152, potassium 4.4, BUN 64, and creatinine 2.1. Urine with 5 to 10 red cells and 0 to 2 white cells. IMPRESSION: 1. Atypical pneumonia. 2. Status post respiratory failure. 3. Dehydration. 4. Hypernatremia. 5. Acute renal failure, improving. 6. History of melanoma, in remission. 7. [place] disease. PLAN: 1. Hypotonic hydration. 2. No diuretics. 3. DVT prophylaxis. 4. Stress dose steroids with titration. Nathaniel Bonilla M.D. DR: JONH JOB#: [id number] CC:
[2018-09-01] MEDS: TRIMETHOPRIM IV SCH ×3 (03:30→20:15)
[2018-09-01] MEDS: D5W IV SCH ×3 (03:30→20:15)
[2018-09-01] MEDS: SULFAMETHOXAZOLE IV SCH ×3 (03:30→20:15)
--- NOTE | 2018-09-01 04:00 | NUR ---
NURSE NOTES: Bed bath, oral care, change of linens done.
--- NOTE | 2018-09-01 05:00 | NUR ---
NURSE NOTES: Sarmiento catheter removed without any events. Condom catheter applied.
[2018-09-01 05:22] LABS: HEMATOCRIT 26.6 % (42.0-52.0); HEMOGLOBIN 8.7 G/DL (14.2-18.0); MEAN CORPUSCULAR VOLUME 90 FL (80-99); PLATELET COUNT 151 K/UL (150-450); RED BLOOD COUNT 2.95 M/UL (4.70-6.10); RED CELL DISTRIBUTION WIDTH 12.7 % (11.6-14.8)
[2018-09-01] MEDS: Hydrocortisone 100mg Inj IV SCH ×3 (05:35→21:41)
[2018-09-01] MEDS: NovoLOG Insulin Flexpen SUBQ SCH ×4 (05:36→21:40)
[2018-09-01 05:47] LABS: ALANINE AMINOTRANSFERASE 36 U/L (12-78); ALBUMIN 1.8 G/DL (3.4-5.0); ALBUMIN/GLOBULIN RATIO 0.4 (1.0-2.7); ALKALINE PHOSPHATASE 44 U/L (46-116); ANION GAP 9 mmol/L (5-15); ASPARTATE AMINO TRANSFERASE 52 U/L (15-37); BILIRUBIN,TOTAL 0.4 MG/DL (0.2-1.0); BLOOD UREA NITROGEN 58 mg/dL (7-18); CALCIUM 8.3 MG/DL (8.5-10.1); CARBON DIOXIDE 27 MMOL/L (21-32); CHLORIDE 106 MMOL/L (98-107); CREATININE 1.8 MG/DL (0.55-1.30); POTASSIUM 3.6 MMOL/L (3.5-5.1); SODIUM 142 MMOL/L (136-145)
--- NOTE | 2018-09-01 07:07 | NUR ---
HAND-OFF: Report given to FAY Armstrong.
--- NOTE | 2018-09-01 07:28 | NUR ---
RESPIRATORY NOTE: Put pt on NC 4L 36% with humidifier, pt is tolerating well, saturates at 93%. No SOB or resp distress noted. RN Nathaniel notified. Will continue to monitor pt.
--- NOTE | 2018-09-01 08:30 | NUR ---
NURSE NOTES: Patient is awake and alert to name and place, he is able to eat with no assistance, encouraged to cough using TCDB technique to clear secretions from lungs, sputum noted to be brown tinged and foul smelling, denies any pain at this time, will continue to monitor.
--- NOTE | 2018-09-01 08:53 | NUR ---
NURSE NOTES: WOUND CARE FOLLOW-UP NOTES:Pt presents with friction suarez R and L buttocks present on admission. Erythema with shearing noted .Erythema noted to scrotal area . Pt is alert and stated he constantly slides down in bed. Both heels boggy but non-tender when palpated .Educated pt on wound prevention and encouraged to frequently turn in bed. .Pt also encouraged to keep heels floated with pillow. Tx.Plan: Apply Triad moisture Barrier to buttocks with each perineal care. Encourage and assist with repositioning at least every 2 hours or as tolerated. [place] Skin Barrier to heels and off-load heels with pillow.
[2018-09-01] MEDS: Heparin 5000 units/ml inj SUBQ SCH ×2 (09:07→20:54)
--- NOTE | 2018-09-01 09:18 | NUR ---
RADIOLOGY DEPT CHEST X-RAY DONE.-P.DYE
--- NOTE | 2018-09-01 10:15 | NUR ---
NURSE NOTES: Dr. taylor at the bedside to collect sputum sample to have PCP and gram stain completed. patient tolerated procedure well satuarting at 91-93%, has a small amount of bleeding noted, bleeding sopped within 10minites, remains on nasal cannula at 3L/min saturating at 92-94%. will continue plan of care.
[2018-09-01] MEDS ORDERED: Primaquine 26.3mg(=15mg base) Tab ORAL SCH (10:30)
[2018-09-01] MEDS: D5W w/KCl 20mEq 1,000 ML IV SCH (11:13)
[2018-09-01] MEDS ORDERED: Lidocaine HCl 2% Jelly 6ml Tube TOPIC SCH (11:15)
--- NOTE | 2018-09-01 11:24 | Pulmonology Progress Note ---
Assessment/Plan Assessment/Plan IMPRESSION: 1. Malignant melanoma. 2. [place]'s disease. 3. Improving oxygenation 4. S/p extubation DISCUSSION: Continue present care CXR better; has improving FiO2 requirements Performed bedside endotracheal lavage; no complications No anesthesia given Specimen sent for Gm stain as well as PCP DFA Aj Harding M.D. Subjective Interval Events: Doing well; on nasal o2 Constitutional: Reports: no symptoms HEENT: Repors: no symptoms Respiratory: Reports: no symptoms Cardiovascular: Reports: no symptoms Gastrointestinal/Abdominal: Reports: no symptoms Genitourinary: Reports: no symptoms Allergies: Coded Allergies: No Known Allergies (Unverified , 08/22/18) Objective Last 24 Hour Vital Signs Date Time Temp Pulse Resp B/P (MAP) Pulse Ox O2 Delivery O2 Flow Rate FiO2 09/01/18 11:00 61 17 93/62 (72) 93 09/01/18 10:00 63 19 129/90 (103) 93 09/01/18 09:00 63 18 108/58 (75) 92 09/01/18 08:00 98.4 68 19 108/58 (75) 94 09/01/18 08:00 68 09/01/18 07:28 94 Venturi Mask 12.0 50 09/01/18 07:28 Venturi Mask 12.0 50 09/01/18 07:00 70 19 120/60 (80) 91 09/01/18 06:00 70 19 111/56 (74) 95 09/01/18 05:00 68 19 111/47 (68) 92 09/01/18 04:00 66 09/01/18 04:00 Venturi Mask 12.0 Venturi Mask 12.0 Venturi Mask 09/01/18 04:00 99.0 66 19 150/61 (90) 91 09/01/18 03:00 67 19 104/47 (66) 92 09/01/18 02:00 68 19 120/57 (78) 92 09/01/18 01:00 68 19 109/53 (71) 92 09/01/18 00:00 99.3 67 20 114/55 (74) 92 09/01/18 00:00 Venturi Mask 12.0 Venturi Mask 12.0 Venturi Mask 09/01/18 00:00 67 08/31/18 23:00 67 18 135/63 (87) 93 08/31/18 22:00 70 22 124/72 (89) 91 08/31/18 21:00 69 19 124/72 (89) 91 08/31/18 20:00 74 08/31/18 20:00 Venturi Mask 8.0 Venturi Mask Venturi Mask 08/31/18 20:00 72 17 124/70 (88) 99 08/31/18 19:34 94 Venturi Mask 8.0 30 08/31/18 19:34 Venturi Mask 8.0 30 08/31/18 19:00 99.2 77 21 107/68 (81) 94 08/31/18 18:00 77 19 134/69 (90) 96 08/31/18 17:00 77 17 154/74 (100) 100 08/31/18 16:00 78 08/31/18 16:00 Venturi Mask 12.0 Venturi Mask Venturi Mask 08/31/18 16:00 99.0 80 27 137/88 (104) 93 08/31/18 15:00 81 16 127/75 (92) 97 08/31/18 14:00 79 14 134/71 (92) 98 08/31/18 13:00 80 18 121/72 (88) 96 08/31/18 12:00 99.2 84 17 142/80 (100) 97 08/31/18 12:00 90 08/31/18 12:00 Venturi Mask 12.0 Venturi Mask Venturi Mask Intake and Output 08/31/18 09/01/18 19:00 07:00 Intake Total 2435 ml 1452.000 ml Output Total 785 ml 700 ml Balance 1650 ml 752.000 ml Intake Oral 640 ml 230 ml IV Total 1675 ml 1222.000 ml Other 120 ml Output Urine Total 785 ml 700 ml General Appearance: no acute distress HEENT: normocephalic Respiratory/Chest: chest wall non-tender Cardiovascular: normal peripheral pulses, normal rate Abdomen: normal bowel sounds Microbiology Date/Time Source Procedure Growth Status 08/31/18 13:10 Sputum Induced Gram Stain Pending Resulted 08/31/18 13:10 Sputum Induced Sputum Culture - Preliminary NO GROWTH Resulted 08/31/18 18:05 Indwelling Cath Urine Culture - Preliminary NO GROWTH Resulted Laboratory Tests 08/31/18 13:10: Vnvfawz-9-Ecjyjdqzw Dehydrogenase [Pending], RBC Doqwuqy-6-Lgrxenunk Dehydrogen [Pending] 08/31/18 18:05: Urine Color Pale yellow, Urine Appearance Slightly cloudy, Urine pH 5, Urine Specific [place] 1.015, Urine Protein 3+H, Urine Glucose (UA) Negative, Urine Ketones Negative, Urine Blood 5+H, Urine Nitrite Negative, Urine Bilirubin Negative, Urine Urobilinogen Normal, Urine Leukocyte Esterase Negative, Urine RBC 5-10H, Urine WBC 0-2, Urine Squamous Epithelial Cells None, Urine Uric Acid Crystals FewH, Urine Amorphous Sediment FewH, Urine Bacteria ManyH 09/01/18 04:30: White Blood Count 6.0, Red Blood Count 2.95L, Hemoglobin 8.7L, Hematocrit 26.6L , Mean Corpuscular Volume 90, Mean Corpuscular Hemoglobin 29.6, Mean Corpuscular Hemoglobin Concent 32.9, Red Cell Distribution Width 12.7, Platelet Count 151, Mean Platelet Volume 6.7, Neutrophils (%) (Auto) , Lymphocytes (%) ( Auto) , Monocytes (%) (Auto) , Eosinophils (%) (Auto) , Basophils (%) (Auto) , Sodium Level 142, Potassium Level 3.6, Chloride Level 106, Carbon Dioxide Level 27, Anion Gap 9, Blood Urea Nitrogen 58H, Creatinine 1.8H, Estimat Glomerular Filtration Rate , Glucose Level 236H, Calcium Level 8.3L, Phosphorus Level 3.0, Magnesium Level 1.7L, Total Bilirubin 0.4, Aspartate Amino Transf (AST/SGOT) 52H , Alanine Aminotransferase (ALT/SGPT) 36, Alkaline Phosphatase 44L, Total Protein 6.0L, Albumin 1.8L, Globulin 4.2, Albumin/Globulin Ratio 0.4L Current Medications Medications (Trade) Dose Ordered Sig/Elli Route PRN Reason Start Time Stop Time Status Last Admin Dose Admin Acetaminophen (Tylenol) 650 mg Q4H PRN RECTAL Mild Pain (Pain Scale 1-3) 08/26/18 11:00 09/25/18 10:59 08/29/18 20:09 Albuterol/ Ipratropium (Albuterol/ Ipratropium) 3 ml Q6H PRN HHN Shortness of Breath 08/27/18 21:45 09/01/18 21:29 08/27/18 21:33 Azithromycin 500 mg/Dextrose 275 ml @ 275 mls/hr Q24HRS IV 08/30/18 17:00 09/05/18 17:59 08/31/18 18:05 Chlorhexidine Gluconate (Gabriela-Hex 2%) 1 applic DAILY@2000 TOPIC 08/26/18 20:00 09/25/18 19:59 08/31/18 20:16 Dextrose (Dextrose 50%) 25 ml Q30M PRN IV Hypoglycemia 08/25/18 08:30 09/21/18 23:29 Dextrose (Dextrose 50%) 50 ml Q30M PRN IV Hypoglycemia 08/25/18 08:30 09/21/18 23:29 Dextrose/ Electrolytes 1,000 ml @ 50 mls/hr Q20H IV 08/31/18 17:30 09/30/18 17:29 09/01/18 11:13 Guaifenesin/ Dextromethorphan (Robitussin DM Syrup) 5 ml Q6H PRN ORAL For Cough 08/25/18 08:30 09/23/18 08:29 Heparin Sodium (Porcine) (Heparin 5000 units/ml) 5,000 units EVERY 12 HOURS SUBQ 08/25/18 09:00 09/22/18 08:59 09/01/18 09:07 Hydrocortisone (Solu-CORTEF) 25 mg EVERY 8 HOURS IV 08/30/18 14:00 09/25/18 21:59 09/01/18 05:35 Insulin Aspart (NovoLOG) BEFORE MEALS AND HS SUBQ 08/31/18 21:00 09/30/18 20:59 09/01/18 05:36 Levothyroxine Sodium (Synthroid) 75 mcg DAILY IV 08/28/18 09:00 09/27/18 08:59 09/01/18 11:14 Lidocaine HCl (Xylocaine Jelly 2%) 1 applic ONCE TOPIC 09/01/18 11:15 09/01/18 12:00 09/01/18 11:13 Lorazepam (Ativan 2mg/ml 1ml) 1 mg Q6H PRN IV For Anxiety 08/27/18 22:30 12/29/18 22:29 08/29/18 07:45 Magnesium Sulfate 100 ml @ 100 mls/hr Q1H IVPB 09/01/18 11:30 09/01/18 13:29 Meropenem 1 gm/ Sodium Chloride 100 ml @ 200 mls/hr Q12HR@0600,1800 IVPB 08/30/18 18:00 09/04/18 17:59 09/01/18 05:36 Ondansetron HCl (Zofran) 4 mg Q4H PRN IVP Nausea & Vomiting 08/25/18 09:15 09/22/18 17:03 08/27/18 20:40 Pantoprazole (Protonix) 40 mg DAILY ORAL 08/25/18 09:00 09/24/18 08:59 09/01/18 09:05 Potassium Chloride (K-Dur) 20 meq ONCE ORAL 09/01/18 11:15 09/01/18 12:30 Tramadol HCl (Ultram) 50 mg TIDPRN PRN ORAL Pain level of 3-6 08/30/18 16:00 09/06/18 15:59 08/30/18 16:31 Trimethoprim/ Sulfamethoxazole 22 ml/Dextrose 572 ml @ 381.333 mls/hr Q12H IV 09/03/18 09:00 09/10/18 08:59 Trimethoprim/ Sulfamethoxazole 22 ml/Dextrose 572 ml @ 381.333 mls/hr Q8H IV 08/31/18 20:00 09/02/18 22:00 09/01/18 03:30 Voriconazole (Vfend) 200 mg Q12HR ORAL 08/30/18 21:00 09/06/18 20:59 09/01/18 09:05 Aj Harding MD Sep 01, 2018 11:24
--- NOTE | 2018-09-01 11:30 | NUR ---
NURSE NOTES: Dr. Bonilla updated on patient condition at the bedside, ordered to have 2g of magnesium released and 20mEq of potassium, will follow orders.
[2018-09-01] MEDS: Albuterol/Ipratropium 3ml neb HHN PRN (11:52)
--- NOTE | 2018-09-01 12:31 | Diagnostic Imaging Report ---
Indication: Chest pain, shortness of breath Technique: XRAY Chest 1v Comparison: 08/30/2018: CT chest 08/31/2018 Findings: Heart size stable. Right-sided PICC line again noted. Interstitial and patchy bilateral airspace opacities again noted, not significant change allowing for differences in lung volumes. Small left pleural effusion. No pneumothorax. Surgical clips again noted in the left neck. Osseous structures stable. Impression: No significant interval change in the radiographic appearance of the chest compared to the prior exam allowing for differences in lung volumes.
--- NOTE | 2018-09-01 12:45 | General Surgery Progress Note ---
General Surgery-Progress Note Subjective Symptoms: improved, tolerating diet, passing flatus Additional Comments much more awake and responsive today. Objective Last 24 Hour Vital Signs Date Time Temp Pulse Resp B/P (MAP) Pulse Ox O2 Delivery O2 Flow Rate FiO2 09/01/18 12:06 67 15 93 Nasal Cannula 4.0 36 09/01/18 11:52 62 15 96 Nasal Cannula 4.0 36 09/01/18 11:00 61 17 93/62 (72) 93 09/01/18 10:00 63 19 129/90 (103) 93 09/01/18 09:00 63 18 108/58 (75) 92 09/01/18 08:00 98.4 68 19 108/58 (75) 94 09/01/18 08:00 68 09/01/18 07:28 94 Venturi Mask 12.0 50 09/01/18 07:28 Venturi Mask 12.0 50 09/01/18 07:00 70 19 120/60 (80) 91 09/01/18 06:00 70 19 111/56 (74) 95 09/01/18 05:00 68 19 111/47 (68) 92 09/01/18 04:00 66 09/01/18 04:00 Venturi Mask 12.0 Venturi Mask 12.0 Venturi Mask 09/01/18 04:00 99.0 66 19 150/61 (90) 91 09/01/18 03:00 67 19 104/47 (66) 92 09/01/18 02:00 68 19 120/57 (78) 92 09/01/18 01:00 68 19 109/53 (71) 92 09/01/18 00:00 99.3 67 20 114/55 (74) 92 09/01/18 00:00 Venturi Mask 12.0 Venturi Mask 12.0 Venturi Mask 09/01/18 00:00 67 08/31/18 23:00 67 18 135/63 (87) 93 08/31/18 22:00 70 22 124/72 (89) 91 08/31/18 21:00 69 19 124/72 (89) 91 08/31/18 20:00 74 08/31/18 20:00 Venturi Mask 8.0 Venturi Mask Venturi Mask 08/31/18 20:00 72 17 124/70 (88) 99 08/31/18 19:34 94 Venturi Mask 8.0 30 08/31/18 19:34 Venturi Mask 8.0 30 08/31/18 19:00 99.2 77 21 107/68 (81) 94 08/31/18 18:00 77 19 134/69 (90) 96 08/31/18 17:00 77 17 154/74 (100) 100 08/31/18 16:00 78 08/31/18 16:00 Venturi Mask 12.0 Venturi Mask Venturi Mask 08/31/18 16:00 99.0 80 27 137/88 (104) 93 08/31/18 15:00 81 16 127/75 (92) 97 08/31/18 14:00 79 14 134/71 (92) 98 08/31/18 13:00 80 18 121/72 (88) 96 I&O Intake and Output 08/31/18 09/01/18 19:00 07:00 Intake Total 2435 ml 1452.000 ml Output Total 785 ml 700 ml Balance 1650 ml 752.000 ml Intake Oral 640 ml 230 ml IV Total 1675 ml 1222.000 ml Other 120 ml Output Urine Total 785 ml 700 ml Drains: none Cardiovascular: RSR Respiratory: clear Abdomen: soft, distended, non-tender, present bowel sounds Extremities: no cyanosis Laboratory Tests Test 08/31/18 13:10 08/31/18 18:05 09/01/18 04:30 Edpqsxb-5-Eyvgnnnhs Dehydrogenase Pending RBC Ofepaly-4-Iqdprjwwt Dehydrogen Pending Urine Color Pale yellow Urine Appearance Slightly cloudy Urine pH 5 (4.5-8.0) Urine Specific [place] 1.015 (1.005-1.035) Urine Protein 3+ (NEGATIVE) H Urine Glucose (UA) Negative (NEGATIVE) Urine Ketones Negative (NEGATIVE) Urine Blood 5+ (NEGATIVE) H Urine Nitrite Negative (NEGATIVE) Urine Bilirubin Negative (NEGATIVE) Urine Urobilinogen Normal MG/DL (0.0-1.0) Urine Leukocyte Esterase Negative (NEGATIVE) Urine RBC 5-10 /HPF (0 - 0) H Urine WBC 0-2 /HPF (0 - 0) Urine Squamous Epithelial Cells None /LPF (NONE/OCC) Urine Uric Acid Crystals Few /LPF (NONE) H Urine Amorphous Sediment Few /LPF (NONE) H Urine Bacteria Many /HPF (NONE) H White Blood Count 6.0 K/UL (4.8-10.8) Red Blood Count 2.95 M/UL (4.70-6.10) L Hemoglobin 8.7 G/DL (14.2-18.0) L Hematocrit 26.6 % (42.0-52.0) L Mean Corpuscular Volume 90 FL (80-99) Mean Corpuscular Hemoglobin 29.6 PG (27.0-31.0) Mean Corpuscular Hemoglobin Concent 32.9 G/DL (32.0-36.0) Red Cell Distribution Width 12.7 % (11.6-14.8) Platelet Count 151 K/UL (150-450) Mean Platelet Volume 6.7 FL (6.5-10.1) Neutrophils (%) (Auto) % (45.0-75.0) Lymphocytes (%) (Auto) % (20.0-45.0) Monocytes (%) (Auto) % (1.0-10.0) Eosinophils (%) (Auto) % (0.0-3.0) Basophils (%) (Auto) % (0.0-2.0) Sodium Level 142 MMOL/L (136-145) Potassium Level 3.6 MMOL/L (3.5-5.1) Chloride Level 106 MMOL/L (98-107) Carbon Dioxide Level 27 MMOL/L (21-32) Anion Gap 9 mmol/L (5-15) Blood Urea Nitrogen 58 mg/dL (7-18) H Creatinine 1.8 MG/DL (0.55-1.30) H Estimat Glomerular Filtration Rate mL/min (>60) Glucose Level 236 MG/DL (74-106) H Calcium Level 8.3 MG/DL (8.5-10.1) L Phosphorus Level 3.0 MG/DL (2.5-4.9) Magnesium Level 1.7 MG/DL (1.8-2.4) L Total Bilirubin 0.4 MG/DL (0.2-1.0) Aspartate Amino Transf (AST/SGOT) 52 U/L (15-37) H Alanine Aminotransferase (ALT/SGPT) 36 U/L (12-78) Alkaline Phosphatase 44 U/L (46-116) L Total Protein 6.0 G/DL (6.4-8.2) L Albumin 1.8 G/DL (3.4-5.0) L Globulin 4.2 g/dL Albumin/Globulin Ratio 0.4 (1.0-2.7) L Plan Problems: (1) Sepsis (2) Abdominal distension (gaseous) Assessment & Plan: Abdominal distention / discomfort. no n/v/f/c. +flatus. feels bloated. exam with mild distention/non tender CT - Mildly fluid-filled small bowel loops, nonspecific, No acute process otherwise, Postcholecystectomy changes. What are probably hepatic cysts adjacent to the gallbladder fossa mimics fluid in the gallbladder fossa on the axial views, but appear to be cysts on the coronal images. Nonetheless, biloma or other pathologic collection not completely excludable Multiple nonobstructive left renal calculi Sarmiento catheter Bilateral basilar pulmonary interstitial prominence, nonspecific Scoliosis and spondylosis KUB - Nonspecific prominent but not frankly dilated gas-filled small bowel loops , decreased from previous day's exam Satisfactory position right groin central venous catheter worsening respiratory status requiring intubation abdominal exam unchanged KUB okay no signs of obstruction more awake today labs improved. gas okay -no acute surgical intervention planned -Rx as written -appreciate ICU team care -will follow clinically with exams thank you for allowing me to participate in patients care David Daley Sep 01, 2018 12:45
--- NOTE | 2018-09-01 13:50 | Nephrology Progress Note ---
Assessment/Plan Problem List: (1) Respiratory failure (2) ROSA (acute kidney injury) (3) Sepsis (4) Adrenal insufficiency (5) Healthcare-associated pneumonia Plan cxr not better may represent pneumonia rather than chf, will stop lasix for now, replace K, now off pressors, hydrate , Lm low likely prerenal, avoid over hydration Na high iv now D5W, dc reyes , voiding trial, lab better Subjective Constitutional: Reports: weakness HEENT: Reports: no symptoms Genitourinary: Reports: no symptoms Neurologic/Psychiatric: Reports: no symptoms Objective Objective Last 24 Hour Vital Signs Date Time Temp Pulse Resp B/P (MAP) Pulse Ox O2 Delivery O2 Flow Rate FiO2 09/01/18 12:06 67 15 93 Nasal Cannula 4.0 36 09/01/18 12:00 98.3 71 16 115/61 (79) 91 09/01/18 12:00 75 09/01/18 12:00 30 09/01/18 12:00 Nasal Cannula 3.0 Nasal Cannula 3.0 09/01/18 11:52 62 15 96 Nasal Cannula 4.0 36 09/01/18 11:00 40 09/01/18 11:00 61 17 93/62 (72) 93 09/01/18 10:00 63 19 129/90 (103) 93 09/01/18 09:00 63 18 108/58 (75) 92 09/01/18 08:00 98.4 68 19 108/58 (75) 94 09/01/18 08:00 68 09/01/18 08:00 40 09/01/18 07:28 94 Venturi Mask 12.0 50 09/01/18 07:28 Venturi Mask 12.0 50 09/01/18 07:00 70 19 120/60 (80) 91 09/01/18 06:00 70 19 111/56 (74) 95 09/01/18 05:00 68 19 111/47 (68) 92 09/01/18 04:00 66 09/01/18 04:00 Venturi Mask 12.0 Venturi Mask 12.0 Venturi Mask 09/01/18 04:00 99.0 66 19 150/61 (90) 91 09/01/18 03:00 67 19 104/47 (66) 92 09/01/18 02:00 68 19 120/57 (78) 92 09/01/18 01:00 68 19 109/53 (71) 92 09/01/18 00:00 99.3 67 20 114/55 (74) 92 09/01/18 00:00 Venturi Mask 12.0 Venturi Mask 12.0 Venturi Mask 09/01/18 00:00 67 08/31/18 23:00 67 18 135/63 (87) 93 08/31/18 22:00 70 22 124/72 (89) 91 08/31/18 21:00 69 19 124/72 (89) 91 08/31/18 20:00 74 08/31/18 20:00 Venturi Mask 8.0 Venturi Mask Venturi Mask 08/31/18 20:00 72 17 124/70 (88) 99 08/31/18 19:34 94 Venturi Mask 8.0 30 08/31/18 19:34 Venturi Mask 8.0 30 08/31/18 19:00 99.2 77 21 107/68 (81) 94 08/31/18 18:00 77 19 134/69 (90) 96 08/31/18 17:00 77 17 154/74 (100) 100 08/31/18 16:00 78 08/31/18 16:00 Venturi Mask 12.0 Venturi Mask Venturi Mask 08/31/18 16:00 99.0 80 27 137/88 (104) 93 08/31/18 15:00 81 16 127/75 (92) 97 08/31/18 14:00 79 14 134/71 (92) 98 Intake and Output 08/31/18 09/01/18 19:00 07:00 Intake Total 2435 ml 1452.000 ml Output Total 785 ml 700 ml Balance 1650 ml 752.000 ml Intake Oral 640 ml 230 ml IV Total 1675 ml 1222.000 ml Other 120 ml Output Urine Total 785 ml 700 ml Laboratory Tests 08/31/18 18:05: Urine Color Pale yellow, Urine Appearance Slightly cloudy, Urine pH 5, Urine Specific [place] 1.015, Urine Protein 3+H, Urine Glucose (UA) Negative, Urine Ketones Negative, Urine Blood 5+H, Urine Nitrite Negative, Urine Bilirubin Negative, Urine Urobilinogen Normal, Urine Leukocyte Esterase Negative, Urine RBC 5-10H, Urine WBC 0-2, Urine Squamous Epithelial Cells None, Urine Uric Acid Crystals FewH, Urine Amorphous Sediment FewH, Urine Bacteria ManyH 09/01/18 04:30: White Blood Count 6.0, Red Blood Count 2.95L, Hemoglobin 8.7L, Hematocrit 26.6L , Mean Corpuscular Volume 90, Mean Corpuscular Hemoglobin 29.6, Mean Corpuscular Hemoglobin Concent 32.9, Red Cell Distribution Width 12.7, Platelet Count 151, Mean Platelet Volume 6.7, Neutrophils (%) (Auto) , Lymphocytes (%) ( Auto) , Monocytes (%) (Auto) , Eosinophils (%) (Auto) , Basophils (%) (Auto) , Sodium Level 142, Potassium Level 3.6, Chloride Level 106, Carbon Dioxide Level 27, Anion Gap 9, Blood Urea Nitrogen 58H, Creatinine 1.8H, Estimat Glomerular Filtration Rate , Glucose Level 236H, Calcium Level 8.3L, Phosphorus Level 3.0, Magnesium Level 1.7L, Total Bilirubin 0.4, Aspartate Amino Transf (AST/SGOT) 52H , Alanine Aminotransferase (ALT/SGPT) 36, Alkaline Phosphatase 44L, Total Protein 6.0L, Albumin 1.8L, Globulin 4.2, Albumin/Globulin Ratio 0.4L Height (Feet): 5 Height (Inches): 7.00 Weight (Pounds): 155 General Appearance: no apparent distress, alert EENT: normal ENT inspection Neck: normal alignment Cardiovascular: normal rate, regular rhythm Respiratory/Chest: crackles/rales Abdomen: non tender, soft Extremities: other - no edema Neurologic: study director II-XII grossly normal Cesar Nunez MD Sep 01, 2018 13:50
--- NOTE | 2018-09-01 13:55 | NUR ---
NURSE NOTES: Dr. gonzalez is at the bedside with patient, he is requesting to have patient sit in bed or walk around with PT. no vernal orders given at this time.
--- NOTE | 2018-09-01 14:30 | NUR ---
NURSE NOTES: Physical therapy is at the bedside, patient was able to sit in bed with assistance of PT without no symptoms of dizziness and Bp remains stable at 109/54, family members are at the bedside.
--- NOTE | 2018-09-01 15:22 | NUR ---
PT EVALUATION NOTE: Patient seen for PT initial evaluation, see complete evaluation for details. Patient will benefit from skilled inpatient PT intervention for strengthening, bed mobility training, transfer training and gait training to improve level of functional mobility. Recommend short term SNF for rehab prior to discharge home. DME needs to be determined based on discharge disposition. Addendum: 09/01/18 at 1524 by SASHA SANZ PT Amended: Links added.
--- NOTE | 2018-09-01 15:35 | Infectious Diseases Prog Note ---
Assessment/Plan Assessment/Plan ASSESSMENT/PLAN: 1. 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 hcap, ? aspiration, respiratory failure, on vent, ROSA likely secondary to sepsis/hypotension, mcfp steroid use - ? OI infection and pna, ? PJP (PCP), ? aspergillus, ? other, sc- chavez albicans, fungemia risk CT chest noted, s/p endotracheal lavage for respiratory sample and cultures - meropenem, azithromycin, voriconazole, bactrim (d/w Dr. Nunez about use of iv bactrim and he agrees to use it) - clinically improved - d/w Dr. Bonilla, Dr. Harding and Dr. Nunez - base line G6PD done - f/u on labs and serology and cultures - steroids - monitor chest x-ray - icu care, bp support, vent support 2. The patient has a history of adrenal insufficiency. 3. History of melanoma in remission. 4. History of biliary sepsis, status post cholecystectomy. 5. Hypothyroidism. 6. Hypertension. 7. Diabetes. 8. History of cancer, which I believe is the melanoma. 9. Past medical history noted. 10. No known drug allergies. 11. Social history is negative. 12. Family history is negative. 13. MAR was noted. 14. Case was discussed with RN. 15. Case was discussed with Dr. Bonilla. 16. Case was discussed with the patient's family. 17. The patient was seen in the emergency room 18. The patient will need ICU care. 19. Continue treatment per primary consultants. 20. Notes and records were noted. 21. Orders were entered. 22. Case was discussed with pharmacy. 23. Skin care protocol. 24. Time spent - 45 minutes Subjective Constitutional: Reports: fatigue; Denies: fever - fever curve better HEENT: Reports: congestion - less Respiratory: Reports: shortness of breath - less Cardiovascular: Denies: chest pain Gastrointestinal/Abdominal: Denies: nausea, vomiting, constipation Genitourinary: Reports: other - no reyes ; Denies: dysuria, hematuria, frequency Neurologic: Denies: headache Psychiatric: Denies: depression Skin: Denies: rash Hematologic: Denies: bleeding Musculoskeletal: Denies: pain Allergies: Coded Allergies: No Known Allergies (Unverified , 08/22/18) Objective Vital Signs Last 24 Hour Vital Signs Date Time Temp Pulse Resp B/P (MAP) Pulse Ox O2 Delivery O2 Flow Rate FiO2 09/01/18 14:00 70 17 109/54 (72) 92 09/01/18 13:00 69 17 114/50 (71) 91 09/01/18 12:06 67 15 93 Nasal Cannula 4.0 36 09/01/18 12:00 98.3 71 16 115/61 (79) 91 09/01/18 12:00 75 09/01/18 12:00 30 09/01/18 12:00 Nasal Cannula 3.0 Nasal Cannula 3.0 09/01/18 11:52 62 15 96 Nasal Cannula 4.0 36 09/01/18 11:00 40 09/01/18 11:00 61 17 93/62 (72) 93 09/01/18 10:00 63 19 129/90 (103) 93 09/01/18 09:00 63 18 108/58 (75) 92 09/01/18 08:00 98.4 68 19 108/58 (75) 94 09/01/18 08:00 68 09/01/18 08:00 40 09/01/18 07:28 94 Venturi Mask 12.0 50 09/01/18 07:28 Venturi Mask 12.0 50 09/01/18 07:00 70 19 120/60 (80) 91 09/01/18 06:00 70 19 111/56 (74) 95 09/01/18 05:00 68 19 111/47 (68) 92 09/01/18 04:00 66 09/01/18 04:00 Venturi Mask 12.0 Venturi Mask 12.0 Venturi Mask 09/01/18 04:00 99.0 66 19 150/61 (90) 91 09/01/18 03:00 67 19 104/47 (66) 92 09/01/18 02:00 68 19 120/57 (78) 92 09/01/18 01:00 68 19 109/53 (71) 92 09/01/18 00:00 99.3 67 20 114/55 (74) 92 09/01/18 00:00 Venturi Mask 12.0 Venturi Mask 12.0 Venturi Mask 09/01/18 00:00 67 08/31/18 23:00 67 18 135/63 (87) 93 08/31/18 22:00 70 22 124/72 (89) 91 08/31/18 21:00 69 19 124/72 (89) 91 08/31/18 20:00 74 08/31/18 20:00 Venturi Mask 8.0 Venturi Mask Venturi Mask 08/31/18 20:00 72 17 124/70 (88) 99 08/31/18 19:34 94 Venturi Mask 8.0 30 08/31/18 19:34 Venturi Mask 8.0 30 08/31/18 19:00 99.2 77 21 107/68 (81) 94 08/31/18 18:00 77 19 134/69 (90) 96 08/31/18 17:00 77 17 154/74 (100) 100 08/31/18 16:00 78 08/31/18 16:00 Venturi Mask 12.0 Venturi Mask Venturi Mask 08/31/18 16:00 99.0 80 27 137/88 (104) 93 Height (Feet): 5 Height (Inches): 7.00 Weight (Pounds): 155 General Appearance: no acute distress HEENT: normocephalic, atraumatic, anicteric, mucous membranes moist Respiratory/Chest: crackles/rales, rhonchi - bilaterally Cardiovascular: normal rate, regular rhythm, no gallop/murmur, no JVD Abdomen: normal bowel sounds, soft, non tender, no organomegaly, non distended Genitourinary: other - no reyes Extremities: no cyanosis Skin: no rash, no ulcers 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 What are probably hepatic cysts adjacent to the gallbladder fossa mimics fluid in the gallbladder fossa on the axial views, but appear to be cysts on the coronal images. Nonetheless, biloma or other pathologic collection not completely excludable Multiple nonobstructive left renal calculi Reyes catheter Bilateral basilar pulmonary interstitial prominence, nonspecific Scoliosis and spondylosis Chest x-ray - nad x 2, reports noted Chest x-ray - 08/25/18 Impression: Interval worsening of aeration with development of dense airspace opacities in the medial right mid/lower lung and patchy opacities in the right upper lung concerning for multifocal pneumonia. Perihilar interstitial opacities in the left raise question for a degree of underlying congestion/fluid overload. Clinical correlation/follow-up recommended. Findings discussed with ordering physician Dr. Bonilla at time of dictation of the final report. Chest - x-ray - 08/26/18 - Procedure: XRAY Chest 1v Indication: Shortness of breath Technique: One view of the chest Comparison: 08/25/2018 Findings: Less optimal inspiration currently Extensive bilateral infiltrates versus edema appear unchanged on the right, slightly worse on the left. There may be some pleural fluid on the left. The heart size is normal Impression: Bilateral infiltrates again demonstrated, slightly worse on the left over one Chest x-ray - 08/28 - COMPARISON: Chest x-rays dated 08/27/18 FINDINGS: Lungs: Patchy perihilar opacities, which may represent pulmonary edema versus infiltrates, not significantly changed compared to the prior exam. Pleural space: Unremarkable. The costophrenic angles are sharp. No visible pneumothorax. Heart: Unremarkable. No cardiomegaly. Mediastinum: Unremarkable. Bones/joints: Unremarkable. Tubes, lines and devices: Stable positioning of the endotracheal tube and nasogastric tube. EKG leads overlie the thorax. IMPRESSION: No significant interval change in the patchy perihilar opacities, which may represent pulmonary edema versus infiltrates. Chest x-ray - 08/30/18 - FINDINGS: Lungs: Mild interstitial prominence minimally improved and slightly worsened bibasilar streaky airspace opacities. Pleural space: Unremarkable. No pneumothorax. Heart: Unremarkable. No cardiomegaly. Mediastinum: Unremarkable. Bones/joints: Unremarkable. Soft tissues: Left neck surgical clips. Tubes, lines and devices: Stable right PICC line. Interval removal of the previously seen endotracheal tube and NG tube. IMPRESSION: Mild interstitial prominence minimally improved and slightly worsened bibasilar streaky airspace opacities. Chest x-ray - 09/01 - Comparison: 08/30/2018: CT chest 08/31/2018 Findings: Heart size stable. Right-sided PICC line again noted. Interstitial and patchy bilateral airspace opacities again noted, not significant change allowing for differences in lung volumes. Small left pleural effusion. No pneumothorax. Surgical clips again noted in the left neck. Osseous structures stable. Impression: No significant interval change in the radiographic appearance of the chest compared to the prior exam allowing for differences in lung volumes. CT chest - IMPRESSION: * Bilateral predominantly perihilar nonspecific groundglass opacities may be reflective of a multifocal pneumonia. Component of edema may also be likely especially given mild smooth septal thickening. Correlate clinically. * Small bilateral pleural effusions adjacent atelectasis/consolidation in the posterior lower lobes. * Findings suggestive of anemia. Microbiology Date/Time Source Procedure Growth Status 08/28/18 19:40 Blood Blood Culture - Preliminary NO GROWTH AFTER 72 HOURS Resulted 08/31/18 13:10 Sputum Induced Gram Stain - Final Resulted 08/31/18 13:10 Sputum Induced Sputum Culture - Preliminary NO GROWTH Resulted 08/24/18 08:00 Stool Stool Culture - Final NO SALMONELLA,SHIGELLA,OR CAMPYLOBACT... Complete 08/31/18 18:05 Indwelling Cath Urine Culture - Preliminary NO GROWTH Resulted 08/22/18 20:30 Rectum VRE Culture - Final NO VANCOMYCIN RESISTANT ENTEROCOCCUS ... Complete 08/22/18 20:30 Rectum - Final NO CARBAPENEM-RESISTANT ENTEROBACTERI... Complete Microbiology Date/Time Source Procedure Growth Status 08/31/18 13:10 Sputum Induced Gram Stain - Final Resulted 08/31/18 13:10 Sputum Induced Sputum Culture - Preliminary NO GROWTH Resulted 08/31/18 18:05 Indwelling Cath Urine Culture - Preliminary NO GROWTH Resulted Laboratory Tests Test 08/31/18 18:05 09/01/18 04:30 Urine Color Pale yellow Urine Appearance Slightly cloudy Urine pH 5 (4.5-8.0) Urine Specific [place] 1.015 (1.005-1.035) Urine Protein 3+ (NEGATIVE) H Urine Glucose (UA) Negative (NEGATIVE) Urine Ketones Negative (NEGATIVE) Urine Blood 5+ (NEGATIVE) H Urine Nitrite Negative (NEGATIVE) Urine Bilirubin Negative (NEGATIVE) Urine Urobilinogen Normal MG/DL (0.0-1.0) Urine Leukocyte Esterase Negative (NEGATIVE) Urine RBC 5-10 /HPF (0 - 0) H Urine WBC 0-2 /HPF (0 - 0) Urine Squamous Epithelial Cells None /LPF (NONE/OCC) Urine Uric Acid Crystals Few /LPF (NONE) H Urine Amorphous Sediment Few /LPF (NONE) H Urine Bacteria Many /HPF (NONE) H White Blood Count 6.0 K/UL (4.8-10.8) Red Blood Count 2.95 M/UL (4.70-6.10) L Hemoglobin 8.7 G/DL (14.2-18.0) L Hematocrit 26.6 % (42.0-52.0) L Mean Corpuscular Volume 90 FL (80-99) Mean Corpuscular Hemoglobin 29.6 PG (27.0-31.0) Mean Corpuscular Hemoglobin Concent 32.9 G/DL (32.0-36.0) Red Cell Distribution Width 12.7 % (11.6-14.8) Platelet Count 151 K/UL (150-450) Mean Platelet Volume 6.7 FL (6.5-10.1) Neutrophils (%) (Auto) % (45.0-75.0) Lymphocytes (%) (Auto) % (20.0-45.0) Monocytes (%) (Auto) % (1.0-10.0) Eosinophils (%) (Auto) % (0.0-3.0) Basophils (%) (Auto) % (0.0-2.0) Sodium Level 142 MMOL/L (136-145) Potassium Level 3.6 MMOL/L (3.5-5.1) Chloride Level 106 MMOL/L (98-107) Carbon Dioxide Level 27 MMOL/L (21-32) Anion Gap 9 mmol/L (5-15) Blood Urea Nitrogen 58 mg/dL (7-18) H Creatinine 1.8 MG/DL (0.55-1.30) H Estimat Glomerular Filtration Rate mL/min (>60) Glucose Level 236 MG/DL (74-106) H Calcium Level 8.3 MG/DL (8.5-10.1) L Phosphorus Level 3.0 MG/DL (2.5-4.9) Magnesium Level 1.7 MG/DL (1.8-2.4) L Total Bilirubin 0.4 MG/DL (0.2-1.0) Aspartate Amino Transf (AST/SGOT) 52 U/L (15-37) H Alanine Aminotransferase (ALT/SGPT) 36 U/L (12-78) Alkaline Phosphatase 44 U/L (46-116) L Total Protein 6.0 G/DL (6.4-8.2) L Albumin 1.8 G/DL (3.4-5.0) L Globulin 4.2 g/dL Albumin/Globulin Ratio 0.4 (1.0-2.7) L Current Medications Medications (Trade) Dose Ordered Sig/Elli Route PRN Reason Start Time Stop Time Status Last Admin Dose Admin Acetaminophen (Tylenol) 650 mg Q4H PRN RECTAL Mild Pain (Pain Scale 1-3) 08/26/18 11:00 09/25/18 10:59 08/29/18 20:09 Albuterol/ Ipratropium (Albuterol/ Ipratropium) 3 ml Q6H PRN HHN Shortness of Breath 08/27/18 21:45 09/01/18 21:29 09/01/18 11:52 Azithromycin 500 mg/Dextrose 275 ml @ 275 mls/hr Q24HRS IV 08/30/18 17:00 09/05/18 17:59 08/31/18 18:05 Chlorhexidine Gluconate (Gabriela-Hex 2%) 1 applic DAILY@2000 TOPIC 08/26/18 20:00 09/25/18 19:59 08/31/18 20:16 Dextrose (Dextrose 50%) 25 ml Q30M PRN IV Hypoglycemia 08/25/18 08:30 09/21/18 23:29 Dextrose (Dextrose 50%) 50 ml Q30M PRN IV Hypoglycemia 08/25/18 08:30 09/21/18 23:29 Dextrose/ Electrolytes 1,000 ml @ 50 mls/hr Q20H IV 08/31/18 17:30 09/30/18 17:29 09/01/18 11:13 Guaifenesin/ Dextromethorphan (Robitussin DM Syrup) 5 ml Q6H PRN ORAL For Cough 08/25/18 08:30 09/23/18 08:29 Heparin Sodium (Porcine) (Heparin 5000 units/ml) 5,000 units EVERY 12 HOURS SUBQ 08/25/18 09:00 09/22/18 08:59 09/01/18 09:07 Hydrocortisone (Solu-CORTEF) 25 mg EVERY 8 HOURS IV 08/30/18 14:00 09/25/18 21:59 09/01/18 14:18 Insulin Aspart (NovoLOG) BEFORE MEALS AND HS SUBQ 08/31/18 21:00 09/30/18 20:59 09/01/18 12:39 Levothyroxine Sodium (Synthroid) 75 mcg DAILY IV 08/28/18 09:00 09/27/18 08:59 09/01/18 11:14 Lorazepam (Ativan 2mg/ml 1ml) 1 mg Q6H PRN IV For Anxiety 08/27/18 22:30 09/03/18 22:29 08/29/18 07:45 Magnesium Oxide (Mag-Ox 400mg) 400 mg THREE TIMES A DAY ORAL 09/01/18 18:00 10/01/18 17:59 Meropenem 1 gm/ Sodium Chloride 100 ml @ 200 mls/hr Q12HR@0600,1800 IVPB 08/30/18 18:00 09/04/18 17:59 09/01/18 05:36 Ondansetron HCl (Zofran) 4 mg Q4H PRN IVP Nausea & Vomiting 08/25/18 09:15 09/22/18 17:03 08/27/18 20:40 Pantoprazole (Protonix) 40 mg DAILY ORAL 08/25/18 09:00 09/24/18 08:59 09/01/18 09:05 Tramadol HCl (Ultram) 50 mg TIDPRN PRN ORAL Pain level of 3-6 08/30/18 16:00 09/06/18 15:59 08/30/18 16:31 Trimethoprim/ Sulfamethoxazole 22 ml/Dextrose 572 ml @ 381.333 mls/hr Q12H IV 09/03/18 09:00 09/10/18 08:59 Trimethoprim/ Sulfamethoxazole 22 ml/Dextrose 572 ml @ 381.333 mls/hr Q8H IV 08/31/18 20:00 09/02/18 22:00 09/01/18 12:29 Voriconazole (Vfend) 200 mg Q12HR ORAL 08/30/18 21:00 09/06/18 20:59 09/01/18 09:05 Treasure Vargas MD Sep 01, 2018 15:35
--- NOTE | 2018-09-01 16:06 | NUR ---
NURSE NOTES: Patient is awake and alert with name and place, he is able to use his cellphone and is watching television. patient remain son nasal cannula at 3L/min saturating at 96% with RR of 15-16, will continue plan of care.
[2018-09-01] MEDS: Azithromycin 500 MG in D5W 275 ML IV SCH (16:46)
--- NOTE | 2018-09-01 17:21 | NUR ---
CASE MANAGEMENT: REVIEW SI: SEPSIS T 97.7 HR 70 RR 19 BP 114/50 SAT 95% NC/3L H/H 8.7/26.6 BUN 58 CR 1.8 IS: BACTRIM IV Q12HR MAG OX 400MG PO TID NOVOLOG SQ ACHS D5W w/KCl 20mEq IVF @ 50ML/HR AZITHROMYCIN IV Q24HR SOLU CORTEF IV Q8HR PT EVAL ICU STATUS DCP: PATIENT IS FROM HOME
[2018-09-01] MEDS: Magnesium Oxide 400mg tab ORAL SCH (17:36)
--- NOTE | 2018-09-01 19:28 | NUR ---
HAND-OFF: Report given to FAY Velasquez. patient remains on nasal cannula at 3L/min with saturations at 94%.
--- NOTE | 2018-09-01 20:00 | NUR ---
NURSE NOTES: Received pt in o acute distress. Awake, alert, oriented x4 follow commands. Currently denies pain, HOB elevated and watching TV at this time. On 3l/m via NC, saturating btwn 93-95%. C/o stuffy nose but no bleeding noted. NSR on the monitor, afebrile, BP stable. PICC on RADHA intact, IVF of D5W with 20 meqKCL infuses at 50ml/h. Incontinent of urine. Some redness on perianal areas noted but otherwise intact. Plan of care explained; will continue to monitor.
[2018-09-01] MEDS: Dyna-Hex 2% Top Sol 2oz TOPIC SCH (20:15)
[2018-09-01] MEDS: traMADol 50mg tab ORAL PRN (20:59)
--- NOTE | 2018-09-01 21:00 | NUR ---
NURSE NOTES: HS care done; bed linen changed. Applied condom cath. Applied calazime cream to reddened perianal areas. Administered po meds, crushed and mixed with pudding. Cough medication for congestion.
--- NOTE | 2018-09-01 22:00 | Progress Note ---
DATE: 09/01/2018 INTERNAL MEDICINE AND CARDIOLOGY PROGRESS NOTE SUBJECTIVE: The patient remains in the intensive care unit. Condition remains critical, but improved. Prognosis remains guarded. The patient is alert. He may need bronchoscopy today. He remains on intravenous antimicrobials. His oxygen requirements are slightly decreased. He requires around the clock respiratory treatments. OBJECTIVE: VITAL SIGNS: Blood pressure 109/54, pulse 70, respirations 17, and afebrile. T-max 99.3. LUNGS: Coarse breath sounds. Scattered rhonchi. Nasal congestion. HEART: Regular rhythm and rate. Normal S1, S2. ABDOMEN: Soft. EXTREMITIES: Trace edema. Some ecchymoses on the skin. LABORATORY DATA: White count 6 and hemoglobin 8.7. BUN 58, creatinine 1.8, potassium 3.6, sodium 142, and magnesium 1.7. LABORATORY DATA: Cultures all remained negative. IMPRESSION: 1. Respiratory failure. 2. Pulmonary infiltrates. 3. Atypical pneumonia. 4. History of melanoma. 5. Adrenal insufficiency. 6. Recovering shock. 7. Anemia with decreasing hemoglobin. 8. Dehydration and hypernatremia, corrected. 9. Hypokalemia, improved. 10. Hypomagnesemia. 11. Severe protein-calorie malnutrition. 12. Acute renal failure, recovering. 13. Hypoxia, better. 14. Hypophosphatemia, improved. PLAN: 1. Intensive care unit care. 2. IV fluids adjusted. 3. Continue replacing potassium and magnesium. The latter intravenously. 4. Antimicrobials per Infectious Disease middleware consultant. 5. Respiratory hygiene. 6. Follow up cultures. 7. Oxygen therapy. 8. Nutritional support. Nathaniel Bonilla M.D. DR: CHAD JOB#: [id number] CC:
--- NOTE | 2018-09-01 22:58 | General Progress Note ---
Assessment/Plan Assessment/Plan Assessment - abnormal LFT - Melanoma - s/p cholecystectomy - Urolithiasis - Anemia - Pneumonia - Azotemia Recommendations - Abx per ID - ICU care - cardiology / pulmonary follow up - po diet as tolerated - follow labs and exam - EGD/colon at a later date once stable Subjective Allergies: Coded Allergies: No Known Allergies (Unverified , 08/22/18) Subjective Breathing better no abdominal complaints Objective Last 24 Hour Vital Signs Date Time Temp Pulse Resp B/P (MAP) Pulse Ox O2 Delivery O2 Flow Rate FiO2 09/01/18 21:00 72 16 114/58 (76) 94 09/01/18 20:00 Nasal Cannula 3.0 Nasal Cannula 3.0 Nasal Cannula 3.0 09/01/18 20:00 97.7 74 16 142/63 (89) 94 09/01/18 20:00 74 09/01/18 19:00 66 16 112/81 (91) 93 09/01/18 18:00 72 15 119/102 (108) 91 09/01/18 17:00 72 17 122/90 (101) 94 09/01/18 16:00 64 09/01/18 16:00 97.7 70 19 119/61 (80) 95 09/01/18 16:00 Nasal Cannula 3.0 Nasal Cannula 3.0 09/01/18 15:00 69 15 115/48 (70) 91 09/01/18 14:00 70 17 109/54 (72) 92 09/01/18 13:00 69 17 114/50 (71) 91 09/01/18 12:06 67 15 93 Nasal Cannula 4.0 36 09/01/18 12:00 98.3 71 16 115/61 (79) 91 09/01/18 12:00 75 09/01/18 12:00 30 09/01/18 12:00 Nasal Cannula 3.0 Nasal Cannula 3.0 09/01/18 11:52 62 15 96 Nasal Cannula 4.0 36 09/01/18 11:00 40 09/01/18 11:00 61 17 93/62 (72) 93 09/01/18 10:00 63 19 129/90 (103) 93 09/01/18 09:00 63 18 108/58 (75) 92 09/01/18 08:00 98.4 68 19 108/58 (75) 94 09/01/18 08:00 68 09/01/18 08:00 40 09/01/18 07:28 94 Venturi Mask 12.0 50 09/01/18 07:28 Venturi Mask 12.0 50 09/01/18 07:00 70 19 120/60 (80) 91 09/01/18 06:00 70 19 111/56 (74) 95 09/01/18 05:00 68 19 111/47 (68) 92 09/01/18 04:00 66 09/01/18 04:00 Venturi Mask 12.0 Venturi Mask 12.0 Venturi Mask 09/01/18 04:00 99.0 66 19 150/61 (90) 91 09/01/18 03:00 67 19 104/47 (66) 92 09/01/18 02:00 68 19 120/57 (78) 92 09/01/18 01:00 68 19 109/53 (71) 92 09/01/18 00:00 99.3 67 20 114/55 (74) 92 09/01/18 00:00 Venturi Mask 12.0 Venturi Mask 12.0 Venturi Mask 09/01/18 00:00 67 08/31/18 23:00 67 18 135/63 (87) 93 Intake and Output 08/31/18 09/01/18 18:59 06:59 Intake Total 2435 ml 1777.000 ml Output Total 775 ml 760 ml Balance 1660 ml 1017.000 ml Intake Oral 640 ml 230 ml IV Total 1675 ml 1547.000 ml Other 120 ml Output Urine Total 775 ml 760 ml Laboratory Tests 09/01/18 04:30: White Blood Count 6.0, Red Blood Count 2.95L, Hemoglobin 8.7L, Hematocrit 26.6L , Mean Corpuscular Volume 90, Mean Corpuscular Hemoglobin 29.6, Mean Corpuscular Hemoglobin Concent 32.9, Red Cell Distribution Width 12.7, Platelet Count 151, Mean Platelet Volume 6.7, Neutrophils (%) (Auto) , Lymphocytes (%) ( Auto) , Monocytes (%) (Auto) , Eosinophils (%) (Auto) , Basophils (%) (Auto) , Sodium Level 142, Potassium Level 3.6, Chloride Level 106, Carbon Dioxide Level 27, Anion Gap 9, Blood Urea Nitrogen 58H, Creatinine 1.8H, Estimat Glomerular Filtration Rate , Glucose Level 236H, Calcium Level 8.3L, Phosphorus Level 3.0, Magnesium Level 1.7L, Total Bilirubin 0.4, Aspartate Amino Transf (AST/SGOT) 52H , Alanine Aminotransferase (ALT/SGPT) 36, Alkaline Phosphatase 44L, Total Protein 6.0L, Albumin 1.8L, Globulin 4.2, Albumin/Globulin Ratio 0.4L Height (Feet): 5 Height (Inches): 7.00 Weight (Pounds): 155 Objective Thin WM NAD NCAT supple Coars BS and tavares RR abd soft no edema non focal Francisco Delgadillo MD Sep 01, 2018 22:58
[2018-09-01] MEDS ORDERED: Albuterol/Ipratropium 3ml neb ONE (23:49)
[2018-09-02] VITALS (25 sets, daily range): BP systolic 95–140; BP diastolic 44–103
--- NOTE | 2018-09-02 | NUR ---
NURSE NOTES: Refused CPT. Breathing tx given by RT but pt refused to finish it. Wants to sleep. VSS. Afebrile.
--- NOTE | 2018-09-02 02:00 | NUR ---
NURSE NOTES: Sleeping,VSS, no distress. Left undisturbed
[2018-09-02] MEDS: D5W IV SCH ×3 (03:43→20:06)
[2018-09-02] MEDS: TRIMETHOPRIM IV SCH ×3 (03:43→20:06)
[2018-09-02] MEDS: SULFAMETHOXAZOLE IV SCH ×3 (03:43→20:06)
--- NOTE | 2018-09-02 04:00 | NUR ---
NURSE NOTES: Condom cath leaked and bed soaked with urine. complete bed bath done and bed linen changed again. Refused to have the condom cath placed back in. Urinal within reach. Denies any pain; afebrile. PICC line dressing changed. Site shows no drainage, no redness, no swelling. Denies SOB. Returned to sleep after procedures
[2018-09-02 05:24] LABS: HEMATOCRIT 25.4 % (42.0-52.0); HEMOGLOBIN 8.8 G/DL (14.2-18.0); MEAN CORPUSCULAR VOLUME 89 FL (80-99); PLATELET COUNT 175 K/UL (150-450); RED BLOOD COUNT 2.86 M/UL (4.70-6.10); RED CELL DISTRIBUTION WIDTH 12.4 % (11.6-14.8); WHITE BLOOD COUNT 10.2 K/UL (4.8-10.8)
[2018-09-02 05:42] LABS: ALANINE AMINOTRANSFERASE 34 U/L (12-78); ALBUMIN 1.9 G/DL (3.4-5.0); ALBUMIN/GLOBULIN RATIO 0.5 (1.0-2.7); ALKALINE PHOSPHATASE 50 U/L (46-116); ANION GAP 8 mmol/L (5-15); ASPARTATE AMINO TRANSFERASE 44 U/L (15-37); BILIRUBIN,TOTAL 0.3 MG/DL (0.2-1.0); BLOOD UREA NITROGEN 45 mg/dL (7-18); CALCIUM 8.2 MG/DL (8.5-10.1); CARBON DIOXIDE 28 MMOL/L (21-32); CHLORIDE 106 MMOL/L (98-107); CREATININE 1.9 MG/DL (0.55-1.30); POTASSIUM 3.2 MMOL/L (3.5-5.1); SODIUM 142 MMOL/L (136-145)
[2018-09-02] MEDS: Hydrocortisone 100mg Inj IV SCH ×3 (06:05→21:45)
[2018-09-02] MEDS: NovoLOG Insulin Flexpen SUBQ SCH ×4 (06:12→21:00)
[2018-09-02] MEDS: Albuterol/Ipratropium 3ml neb HHN SCH ×4 (06:54→19:55)
--- NOTE | 2018-09-02 07:07 | NUR ---
HAND-OFF: Report given to Anju Melendez RN.
--- NOTE | 2018-09-02 08:49 | Pulmonology Progress Note ---
Assessment/Plan Assessment/Plan IMPRESSION: 1. Malignant melanoma. 2. Beckham's disease. 3. Improving oxygenation 4. S/p extubation DISCUSSION: Continue present care CXR better; has improving FiO2 requirements; now on low flow nasal o2 Performed bedside endotracheal lavage yesterday; no complications No anesthesia given Specimen sent for Gm stain as well as PCP DFA Dr Hargrove will cover me 09/03/18-09/07/18 Aj Harding M.D. Subjective Interval Events: Doing better on low flow O2 Constitutional: Reports: no symptoms HEENT: Repors: no symptoms Respiratory: Reports: no symptoms Cardiovascular: Reports: no symptoms Gastrointestinal/Abdominal: Reports: no symptoms Allergies: Coded Allergies: No Known Allergies (Unverified , 08/22/18) Objective Last 24 Hour Vital Signs Date Time Temp Pulse Resp B/P (MAP) Pulse Ox O2 Delivery O2 Flow Rate FiO2 09/02/18 07:17 72 22 95 Nasal Cannula 4.0 36 09/02/18 06:54 Nasal Cannula 4.0 36 09/02/18 06:54 95 Nasal Cannula 4.0 36 09/02/18 06:54 66 22 96 Nasal Cannula 4.0 36 09/02/18 06:00 69 18 130/63 (85) 94 09/02/18 05:00 66 19 110/73 (85) 94 09/02/18 04:00 72 09/02/18 04:00 97.7 72 19 109/72 (84) 96 09/02/18 04:00 Nasal Cannula 3.0 Nasal Cannula 3.0 Nasal Cannula 3.0 09/02/18 03:00 67 19 110/67 (81) 95 09/02/18 02:00 65 21 117/60 (79) 91 09/02/18 01:00 68 18 110/50 (70) 94 09/02/18 00:07 71 18 94 Nasal Cannula 4.0 36 09/02/18 00:00 69 09/02/18 00:00 98.0 69 18 117/70 (86) 93 09/02/18 00:00 60 18 95 Nasal Cannula 4.0 36 09/02/18 00:00 Nasal Cannula 3.0 Nasal Cannula 3.0 Nasal Cannula 3.0 09/01/18 23:00 68 18 137/68 (91) 94 09/01/18 22:00 70 17 126/65 (85) 94 09/01/18 21:00 72 16 114/58 (76) 94 09/01/18 20:00 Nasal Cannula 3.0 Nasal Cannula 3.0 Nasal Cannula 3.0 09/01/18 20:00 97.7 74 16 142/63 (89) 94 09/01/18 20:00 74 09/01/18 19:54 Nasal Cannula 4.0 36 09/01/18 19:54 93 Nasal Cannula 4.0 36 09/01/18 19:00 66 16 112/81 (91) 93 09/01/18 18:00 72 15 119/102 (108) 91 09/01/18 17:00 72 17 122/90 (101) 94 09/01/18 16:00 64 09/01/18 16:00 97.7 70 19 119/61 (80) 95 09/01/18 16:00 Nasal Cannula 3.0 Nasal Cannula 3.0 09/01/18 15:00 69 15 115/48 (70) 91 09/01/18 14:00 70 17 109/54 (72) 92 09/01/18 13:00 69 17 114/50 (71) 91 09/01/18 12:06 67 15 93 Nasal Cannula 4.0 36 09/01/18 12:00 98.3 71 16 115/61 (79) 91 09/01/18 12:00 75 09/01/18 12:00 30 09/01/18 12:00 Nasal Cannula 3.0 Nasal Cannula 3.0 09/01/18 11:52 62 15 96 Nasal Cannula 4.0 36 09/01/18 11:00 40 09/01/18 11:00 61 17 93/62 (72) 93 09/01/18 10:00 63 19 129/90 (103) 93 09/01/18 09:00 63 18 108/58 (75) 92 Intake and Output 09/01/18 09/02/18 19:00 07:00 Intake Total 1605 ml 2054.000 ml Output Total 676 ml 1100 ml Balance 929 ml 954.000 ml Intake Oral 1555 ml 360 ml IV Total 50 ml 1694.000 ml Output Urine Total 675 ml 1100 ml Stool Total 1 ml # Voids 1 # Bowel Movements 2 General Appearance: no acute distress HEENT: normocephalic Respiratory/Chest: chest wall non-tender, lungs clear Cardiovascular: normal peripheral pulses, normal rate Abdomen: normal bowel sounds, soft, non tender Extremities: no cyanosis Microbiology Date/Time Source Procedure Growth Status 09/01/18 19:00 Sputum Induced Gram Stain Pending Resulted 09/01/18 19:00 Sputum Induced Sputum Culture - Preliminary Resulted 08/31/18 13:10 Sputum Induced Gram Stain - Final Complete 08/31/18 13:10 Sputum Culture - Final Cyndee Albicans Complete 08/31/18 18:05 Indwelling Cath Urine Culture - Preliminary NO GROWTH AFTER 24 HOURS Resulted Laboratory Tests 09/02/18 04:00: White Blood Count 10.2#, Red Blood Count 2.86L, Hemoglobin 8.8L, Hematocrit 25.4L, Mean Corpuscular Volume 89, Mean Corpuscular Hemoglobin 30.7, Mean Corpuscular Hemoglobin Concent 34.6, Red Cell Distribution Width 12.4, Platelet Count 175, Mean Platelet Volume 6.9, Neutrophils (%) (Auto) , Lymphocytes (%) ( Auto) , Monocytes (%) (Auto) , Eosinophils (%) (Auto) , Basophils (%) (Auto) , Sodium Level 142, Potassium Level 3.2L, Chloride Level 106, Carbon Dioxide Level 28, Anion Gap 8, Blood Urea Nitrogen 45H, Creatinine 1.9H, Estimat Glomerular Filtration Rate , Glucose Level 129#H, Calcium Level 8.2L, Total Bilirubin 0.3, Aspartate Amino Transf (AST/SGOT) 44H, Alanine Aminotransferase ( ALT/SGPT) 34, Alkaline Phosphatase 50, Lactate Dehydrogenase 454H, Total Protein 5.5L, Albumin 1.9L, Globulin 3.6, Albumin/Globulin Ratio 0.5L Current Medications Medications (Trade) Dose Ordered Sig/Elli Route PRN Reason Start Time Stop Time Status Last Admin Dose Admin Acetaminophen (Tylenol) 650 mg Q4H PRN RECTAL Mild Pain (Pain Scale 1-3) 08/26/18 11:00 09/25/18 10:59 08/29/18 20:09 Albuterol/ Ipratropium (Albuterol/ Ipratropium) 3 ml Q6HRT HHN 09/02/18 01:00 09/07/18 00:59 09/02/18 06:54 Azithromycin 500 mg/Dextrose 275 ml @ 275 mls/hr Q24HRS IV 08/30/18 17:00 09/05/18 17:59 09/01/18 16:46 Chlorhexidine Gluconate (Gabriela-Hex 2%) 1 applic DAILY@2000 TOPIC 08/26/18 20:00 09/25/18 19:59 09/01/18 20:15 Dextrose (Dextrose 50%) 25 ml Q30M PRN IV Hypoglycemia 08/25/18 08:30 09/21/18 23:29 Dextrose (Dextrose 50%) 50 ml Q30M PRN IV Hypoglycemia 08/25/18 08:30 09/21/18 23:29 Dextrose/ Electrolytes 1,000 ml @ 50 mls/hr Q20H IV 08/31/18 17:30 09/30/18 17:29 09/01/18 11:13 Guaifenesin/ Dextromethorphan (Robitussin DM Syrup) 5 ml Q6H PRN ORAL For Cough 08/25/18 08:30 09/23/18 08:29 09/01/18 20:58 Heparin Sodium (Porcine) (Heparin 5000 units/ml) 5,000 units EVERY 12 HOURS SUBQ 08/25/18 09:00 09/22/18 08:59 09/01/18 20:54 Hydrocortisone (Solu-CORTEF) 25 mg EVERY 8 HOURS IV 08/30/18 14:00 09/25/18 21:59 09/02/18 06:05 Insulin Aspart (NovoLOG) BEFORE MEALS AND HS SUBQ 08/31/18 21:00 09/30/18 20:59 09/02/18 06:12 Levothyroxine Sodium (Synthroid) 75 mcg DAILY IV 08/28/18 09:00 09/27/18 08:59 09/01/18 11:14 Lorazepam (Ativan 2mg/ml 1ml) 1 mg Q6H PRN IV For Anxiety 08/27/18 22:30 09/03/18 22:29 08/29/18 07:45 Magnesium Oxide (Mag-Ox 400mg) 400 mg THREE TIMES A DAY ORAL 09/01/18 18:00 10/01/18 17:59 09/01/18 17:36 Meropenem 1 gm/ Sodium Chloride 100 ml @ 200 mls/hr Q12HR@0600,1800 IVPB 08/30/18 18:00 09/04/18 17:59 09/02/18 06:10 Ondansetron HCl (Zofran) 4 mg Q4H PRN IVP Nausea & Vomiting 08/25/18 09:15 09/22/18 17:03 08/27/18 20:40 Pantoprazole (Protonix) 40 mg DAILY ORAL 08/25/18 09:00 09/24/18 08:59 09/01/18 09:05 Tramadol HCl (Ultram) 50 mg TIDPRN PRN ORAL Pain level of 3-6 08/30/18 16:00 09/06/18 15:59 09/01/18 20:59 Trimethoprim/ Sulfamethoxazole 22 ml/Dextrose 572 ml @ 381.333 mls/hr Q12H IV 09/03/18 09:00 09/10/18 08:59 Trimethoprim/ Sulfamethoxazole 22 ml/Dextrose 572 ml @ 381.333 mls/hr Q8H IV 08/31/18 20:00 09/02/18 22:00 09/02/18 03:43 Voriconazole (Vfend) 200 mg Q12HR ORAL 08/30/18 21:00 09/06/18 20:59 09/01/18 20:53 Aj Harding MD Sep 02, 2018 08:49
--- NOTE | 2018-09-02 09:30 | NUR ---
NURSE NOTES: PT at the bedside with patient, he is able to sit at the edge of the bed , currently he is able to stand with max assistance from PT, no symptoms of syncope or fainting noted.
[2018-09-02] MEDS: Magnesium Oxide 400mg tab ORAL SCH ×3 (09:40→18:00)
[2018-09-02] MEDS: D5W w/KCl 20mEq 1,000 ML IV SCH (09:41)
[2018-09-02] MEDS: Heparin 5000 units/ml inj SUBQ SCH ×2 (09:42→20:58)
--- NOTE | 2018-09-02 10:30 | NUR ---
NURSE NOTES: Dr. Mayes ordered to have patient hemodialyzed today, hemodialysis nurse notified regarding orders and will hemodialyze patient this afternoon, no further orders given at this time Addendum: 09/02/18 at 1619 by MELVIN BEJARANO RN placed in incorrect patient
--- NOTE | 2018-09-02 11:30 | NUR ---
NURSE NOTES: Patient remains calm in bed with no distress noted, remains awake and alert talking on the phone, he denies any pain. will continue plan of care.
--- NOTE | 2018-09-02 13:00 | Nephrology Progress Note ---
Assessment/Plan Problem List: (1) Respiratory failure (2) ROSA (acute kidney injury) (3) Sepsis (4) Adrenal insufficiency (5) Healthcare-associated pneumonia Plan cxr not better may represent pneumonia rather than chf, will stop lasix for now, replace K, now off pressors, hydrate , Lm low likely prerenal, avoid over hydration Na high iv now D5W, dc reyes , voiding trial, lab better Subjective Constitutional: Reports: weakness HEENT: Reports: no symptoms Genitourinary: Reports: no symptoms Neurologic/Psychiatric: Reports: no symptoms Objective Objective Last 24 Hour Vital Signs Date Time Temp Pulse Resp B/P (MAP) Pulse Ox O2 Delivery O2 Flow Rate FiO2 09/02/18 12:00 Nasal Cannula 3.0 Nasal Cannula 3.0 Nasal Cannula 3.0 09/02/18 12:00 70 09/02/18 12:00 97.7 70 16 115/53 (73) 98 09/02/18 11:00 67 20 95/44 (61) 97 09/02/18 10:00 69 20 124/66 (85) 95 09/02/18 09:00 74 18 106/58 (74) 94 09/02/18 08:00 Nasal Cannula 3.0 Nasal Cannula 3.0 Nasal Cannula 3.0 09/02/18 08:00 77 09/02/18 08:00 97.8 77 18 122/57 (78) 92 09/02/18 07:17 72 22 95 Nasal Cannula 4.0 36 09/02/18 07:00 76 19 140/61 (87) 95 09/02/18 06:54 Nasal Cannula 4.0 36 09/02/18 06:54 95 Nasal Cannula 4.0 36 09/02/18 06:54 66 22 96 Nasal Cannula 4.0 36 09/02/18 06:00 69 18 130/63 (85) 94 09/02/18 05:00 66 19 110/73 (85) 94 09/02/18 04:00 72 09/02/18 04:00 97.7 72 19 109/72 (84) 96 09/02/18 04:00 Nasal Cannula 3.0 Nasal Cannula 3.0 Nasal Cannula 3.0 09/02/18 03:00 67 19 110/67 (81) 95 09/02/18 02:00 65 21 117/60 (79) 91 09/02/18 01:00 68 18 110/50 (70) 94 09/02/18 00:07 71 18 94 Nasal Cannula 4.0 36 09/02/18 00:00 69 09/02/18 00:00 98.0 69 18 117/70 (86) 93 09/02/18 00:00 60 18 95 Nasal Cannula 4.0 36 09/02/18 00:00 Nasal Cannula 3.0 Nasal Cannula 3.0 Nasal Cannula 3.0 09/01/18 23:00 68 18 137/68 (91) 94 09/01/18 22:00 70 17 126/65 (85) 94 09/01/18 21:00 72 16 114/58 (76) 94 09/01/18 20:00 Nasal Cannula 3.0 Nasal Cannula 3.0 Nasal Cannula 3.0 09/01/18 20:00 97.7 74 16 142/63 (89) 94 09/01/18 20:00 74 09/01/18 19:54 Nasal Cannula 4.0 36 09/01/18 19:54 93 Nasal Cannula 4.0 36 09/01/18 19:00 66 16 112/81 (91) 93 09/01/18 18:00 72 15 119/102 (108) 91 09/01/18 17:00 72 17 122/90 (101) 94 09/01/18 16:00 64 09/01/18 16:00 97.7 70 19 119/61 (80) 95 09/01/18 16:00 Nasal Cannula 3.0 Nasal Cannula 3.0 09/01/18 15:00 69 15 115/48 (70) 91 09/01/18 14:00 70 17 109/54 (72) 92 09/01/18 13:00 69 17 114/50 (71) 91 Intake and Output 09/01/18 09/02/18 19:00 07:00 Intake Total 3302 ml 2104.000 ml Output Total 676 ml 1100 ml Balance 2626 ml 1004.000 ml Intake Oral 1555 ml 360 ml IV Total 1747 ml 1744.000 ml Output Urine Total 675 ml 1100 ml Stool Total 1 ml # Voids 1 # Bowel Movements 2 Laboratory Tests 09/02/18 04:00: White Blood Count 10.2#, Red Blood Count 2.86L, Hemoglobin 8.8L, Hematocrit 25.4L, Mean Corpuscular Volume 89, Mean Corpuscular Hemoglobin 30.7, Mean Corpuscular Hemoglobin Concent 34.6, Red Cell Distribution Width 12.4, Platelet Count 175, Mean Platelet Volume 6.9, Neutrophils (%) (Auto) , Lymphocytes (%) ( Auto) , Monocytes (%) (Auto) , Eosinophils (%) (Auto) , Basophils (%) (Auto) , Sodium Level 142, Potassium Level 3.2L, Chloride Level 106, Carbon Dioxide Level 28, Anion Gap 8, Blood Urea Nitrogen 45H, Creatinine 1.9H, Estimat Glomerular Filtration Rate , Glucose Level 129#H, Calcium Level 8.2L, Total Bilirubin 0.3, Aspartate Amino Transf (AST/SGOT) 44H, Alanine Aminotransferase ( ALT/SGPT) 34, Alkaline Phosphatase 50, Lactate Dehydrogenase 454H, Total Protein 5.5L, Albumin 1.9L, Globulin 3.6, Albumin/Globulin Ratio 0.5L Height (Feet): 5 Height (Inches): 7.00 Weight (Pounds): 159 General Appearance: no apparent distress, alert EENT: normal ENT inspection Neck: normal alignment Cardiovascular: regular rhythm Respiratory/Chest: crackles/rales Abdomen: non tender, soft Extremities: other - no edema Neurologic: [employer] food [employer] lead II-XII grossly normal Cesar Nunez MD Sep 02, 2018 13:00
--- NOTE | 2018-09-02 13:10 | NUR ---
NURSE NOTES: Dr. Nunez updated on patient condition, reported potassium of 3.2 and ordered to have PO 40mEq given PO. will continue plan of care.
--- NOTE | 2018-09-02 15:10 | NUR ---
NURSE NOTES: Patient family at the bedside, patient educated on importance of eating diet, patient stated he has no appetite for hospital food, will attempt to eat more at dinner, patient remains awake, alert and talkative. he is saturating at 99% with nasal cannula at 3L/min with no distress, he remains coughing up thick secretions spontaneously. talking on the phone with family. will continue plan of care.
--- NOTE | 2018-09-02 16:19 | General Surgery Progress Note ---
General Surgery-Progress Note Subjective Symptoms: tolerating diet, passing flatus Additional Comments looks much better today. awake, alert, comfortable. Objective Last 24 Hour Vital Signs Date Time Temp Pulse Resp B/P (MAP) Pulse Ox O2 Delivery O2 Flow Rate FiO2 09/02/18 15:00 89 16 116/103 (107) 96 09/02/18 14:00 87 19 134/63 (86) 97 09/02/18 13:40 80 22 100 Nasal Cannula 4.0 36 09/02/18 13:30 75 20 100 Nasal Cannula 4.0 36 09/02/18 13:00 72 20 138/67 (90) 100 09/02/18 12:00 Nasal Cannula 3.0 Nasal Cannula 3.0 Nasal Cannula 3.0 09/02/18 12:00 70 09/02/18 12:00 97.7 70 16 115/53 (73) 98 09/02/18 11:00 67 20 95/44 (61) 97 09/02/18 10:00 69 20 124/66 (85) 95 09/02/18 09:00 74 18 106/58 (74) 94 09/02/18 08:00 Nasal Cannula 3.0 Nasal Cannula 3.0 Nasal Cannula 3.0 09/02/18 08:00 77 09/02/18 08:00 97.8 77 18 122/57 (78) 92 09/02/18 07:17 72 22 95 Nasal Cannula 4.0 36 09/02/18 07:00 76 19 140/61 (87) 95 09/02/18 06:54 Nasal Cannula 4.0 36 09/02/18 06:54 95 Nasal Cannula 4.0 36 09/02/18 06:54 66 22 96 Nasal Cannula 4.0 36 09/02/18 06:00 69 18 130/63 (85) 94 09/02/18 05:00 66 19 110/73 (85) 94 09/02/18 04:00 72 09/02/18 04:00 97.7 72 19 109/72 (84) 96 09/02/18 04:00 Nasal Cannula 3.0 Nasal Cannula 3.0 Nasal Cannula 3.0 09/02/18 03:00 67 19 110/67 (81) 95 09/02/18 02:00 65 21 117/60 (79) 91 09/02/18 01:00 68 18 110/50 (70) 94 09/02/18 00:07 71 18 94 Nasal Cannula 4.0 36 09/02/18 00:00 69 09/02/18 00:00 98.0 69 18 117/70 (86) 93 09/02/18 00:00 60 18 95 Nasal Cannula 4.0 36 09/02/18 00:00 Nasal Cannula 3.0 Nasal Cannula 3.0 Nasal Cannula 3.0 09/01/18 23:00 68 18 137/68 (91) 94 09/01/18 22:00 70 17 126/65 (85) 94 09/01/18 21:00 72 16 114/58 (76) 94 09/01/18 20:00 Nasal Cannula 3.0 Nasal Cannula 3.0 Nasal Cannula 3.0 09/01/18 20:00 97.7 74 16 142/63 (89) 94 09/01/18 20:00 74 09/01/18 19:54 Nasal Cannula 4.0 36 09/01/18 19:54 93 Nasal Cannula 4.0 36 09/01/18 19:00 66 16 112/81 (91) 93 09/01/18 18:00 72 15 119/102 (108) 91 09/01/18 17:00 72 17 122/90 (101) 94 I&O Intake and Output 09/01/18 09/02/18 19:00 07:00 Intake Total 3302 ml 2104.000 ml Output Total 676 ml 1100 ml Balance 2626 ml 1004.000 ml Intake Oral 1555 ml 360 ml IV Total 1747 ml 1744.000 ml Output Urine Total 675 ml 1100 ml Stool Total 1 ml # Voids 1 # Bowel Movements 2 Drains: none Cardiovascular: RSR Respiratory: clear Abdomen: soft, flat, non-tender, present bowel sounds Extremities: no cyanosis Laboratory Tests Test 09/02/18 04:00 White Blood Count 10.2 K/UL (4.8-10.8) # Red Blood Count 2.86 M/UL (4.70-6.10) L Hemoglobin 8.8 G/DL (14.2-18.0) L Hematocrit 25.4 % (42.0-52.0) L Mean Corpuscular Volume 89 FL (80-99) Mean Corpuscular Hemoglobin 30.7 PG (27.0-31.0) Mean Corpuscular Hemoglobin Concent 34.6 G/DL (32.0-36.0) Red Cell Distribution Width 12.4 % (11.6-14.8) Platelet Count 175 K/UL (150-450) Mean Platelet Volume 6.9 FL (6.5-10.1) Neutrophils (%) (Auto) % (45.0-75.0) Lymphocytes (%) (Auto) % (20.0-45.0) Monocytes (%) (Auto) % (1.0-10.0) Eosinophils (%) (Auto) % (0.0-3.0) Basophils (%) (Auto) % (0.0-2.0) Sodium Level 142 MMOL/L (136-145) Potassium Level 3.2 MMOL/L (3.5-5.1) L Chloride Level 106 MMOL/L (98-107) Carbon Dioxide Level 28 MMOL/L (21-32) Anion Gap 8 mmol/L (5-15) Blood Urea Nitrogen 45 mg/dL (7-18) H Creatinine 1.9 MG/DL (0.55-1.30) H Estimat Glomerular Filtration Rate mL/min (>60) Glucose Level 129 MG/DL (74-106) #H Calcium Level 8.2 MG/DL (8.5-10.1) L Total Bilirubin 0.3 MG/DL (0.2-1.0) Aspartate Amino Transf (AST/SGOT) 44 U/L (15-37) H Alanine Aminotransferase (ALT/SGPT) 34 U/L (12-78) Alkaline Phosphatase 50 U/L (46-116) Lactate Dehydrogenase 454 U/L (81-234) H Total Protein 5.5 G/DL (6.4-8.2) L Albumin 1.9 G/DL (3.4-5.0) L Globulin 3.6 g/dL Albumin/Globulin Ratio 0.5 (1.0-2.7) L Plan Problems: (1) Sepsis (2) Abdominal distension (gaseous) Assessment & Plan: Abdominal distention / discomfort. no n/v/f/c. +flatus. feels bloated. exam with mild distention/non tender CT - Mildly fluid-filled small bowel loops, nonspecific, No acute process otherwise, Postcholecystectomy changes. What are probably hepatic cysts adjacent to the gallbladder fossa mimics fluid in the gallbladder fossa on the axial views, but appear to be cysts on the coronal images. Nonetheless, biloma or other pathologic collection not completely excludable Multiple nonobstructive left renal calculi Sarmiento catheter Bilateral basilar pulmonary interstitial prominence, nonspecific Scoliosis and spondylosis KUB - Nonspecific prominent but not frankly dilated gas-filled small bowel loops , decreased from previous day's exam Satisfactory position right groin central venous catheter worsening respiratory status requiring intubation abdominal exam unchanged KUB okay no signs of obstruction labs improved. gas okay recovering -no acute surgical intervention planned -Rx as written -diet as tolerated -appreciate ICU team care -will follow clinically with exams thank you for allowing me to participate in patients care David Daley Sep 02, 2018 16:19
[2018-09-02] MEDS: Azithromycin 500 MG in D5W 275 ML IV SCH (16:40)
--- NOTE | 2018-09-02 17:22 | NUR ---
CASE MANAGEMENT:REVIEW 09/02/18 SI: RESPIRATORY FAILURE. PNA 97.7 16 115/53 98% ON 3L/NC H/H-8.8/25.4 K-3.2 BUN+45 CR+1.9 IS:IV BACTRIM Q12 IV AZACTAM Q24 IV SOLUCORTEF Q8HRS IV SYNTHROID QD DUONEB HHN Q6HRS RTC IVF@50/HR : ICU STATUS
--- NOTE | 2018-09-02 19:17 | NUR ---
HAND-OFF: Report given to FAY Andrews.
[2018-09-02] MEDS: Dyna-Hex 2% Top Sol 2oz TOPIC SCH (19:45)
--- NOTE | 2018-09-02 19:45 | NUR ---
NURSE NOTES: PATIENT ALERT, ORIENTED, RESPIRATION REGULAR, NO SOB, CHEST DISCOMFORT OR COUGH SIGN AT THIS TIME, O2 SATURATION OVER 98% NOTED ON ROOM AIR, ABDOMEN SOFT, HYPWER ACTIVE BOWEL SOUND X4, NO BOWEL MOVEMENT, VOIDED, THIN YELLOW URINE COLOR WITHOUT ODOR, PICC LINE TO RIGHT UPPER ARM, INTACT AND PATENT, ONGOING D5W WITH 20MEQ KCL AT 50ML/HR VIA PICC LINE, MADE LOWER BED POSITION AND PROVIDED CALL LIGHT WITHIN REACH, WILL CONTINUE TO MONITOR.
--- NOTE | 2018-09-02 20:40 | General Progress Note ---
Assessment/Plan Assessment/Plan Assessment - abnormal LFT - Melanoma - s/p cholecystectomy - Urolithiasis - Anemia - Pneumonia - Azotemia Recommendations - Abx per ID - ICU care - cardiology / pulmonary follow up - po diet as tolerated - follow labs and exam - EGD/colon at a later date once stable Subjective Allergies: Coded Allergies: No Known Allergies (Unverified , 08/22/18) Subjective eating OK no abdominal complaints Objective Last 24 Hour Vital Signs Date Time Temp Pulse Resp B/P (MAP) Pulse Ox O2 Delivery O2 Flow Rate FiO2 09/02/18 20:06 80 16 100 Room Air 21 09/02/18 20:00 98.6 78 17 127/63 (84) 99 09/02/18 19:57 Room Air 09/02/18 19:57 78 16 100 Room Air 21 09/02/18 19:56 100 Room Air 09/02/18 19:00 78 18 125/71 (89) 96 09/02/18 18:00 75 21 105/65 (78) 98 09/02/18 17:00 75 16 125/66 (85) 97 09/02/18 16:00 Room Air Room Air Room Air 09/02/18 16:00 85 09/02/18 16:00 97.8 81 16 125/52 (76) 94 09/02/18 15:00 89 16 116/103 (107) 96 09/02/18 14:00 87 19 134/63 (86) 97 09/02/18 13:40 80 22 100 Nasal Cannula 4.0 36 09/02/18 13:30 75 20 100 Nasal Cannula 4.0 36 09/02/18 13:00 72 20 138/67 (90) 100 09/02/18 12:00 Nasal Cannula 3.0 Nasal Cannula 3.0 Nasal Cannula 3.0 09/02/18 12:00 70 09/02/18 12:00 97.7 70 16 115/53 (73) 98 09/02/18 11:00 67 20 95/44 (61) 97 09/02/18 10:00 69 20 124/66 (85) 95 09/02/18 09:00 74 18 106/58 (74) 94 09/02/18 08:00 Nasal Cannula 3.0 Nasal Cannula 3.0 Nasal Cannula 3.0 09/02/18 08:00 77 09/02/18 08:00 97.8 77 18 122/57 (78) 92 09/02/18 07:17 72 22 95 Nasal Cannula 4.0 36 09/02/18 07:00 76 19 140/61 (87) 95 09/02/18 06:54 Nasal Cannula 4.0 36 09/02/18 06:54 95 Nasal Cannula 4.0 36 09/02/18 06:54 66 22 96 Nasal Cannula 4.0 36 09/02/18 06:00 69 18 130/63 (85) 94 09/02/18 05:00 66 19 110/73 (85) 94 09/02/18 04:00 72 09/02/18 04:00 97.7 72 19 109/72 (84) 96 09/02/18 04:00 Nasal Cannula 3.0 Nasal Cannula 3.0 Nasal Cannula 3.0 09/02/18 03:00 67 19 110/67 (81) 95 09/02/18 02:00 65 21 117/60 (79) 91 09/02/18 01:00 68 18 110/50 (70) 94 09/02/18 00:07 71 18 94 Nasal Cannula 4.0 36 09/02/18 00:00 69 09/02/18 00:00 98.0 69 18 117/70 (86) 93 09/02/18 00:00 60 18 95 Nasal Cannula 4.0 36 09/02/18 00:00 Nasal Cannula 3.0 Nasal Cannula 3.0 Nasal Cannula 3.0 09/01/18 23:00 68 18 137/68 (91) 94 09/01/18 22:00 70 17 126/65 (85) 94 09/01/18 21:00 72 16 114/58 (76) 94 Intake and Output 09/01/18 09/02/18 19:00 07:00 Intake Total 3302 ml 2104.000 ml Output Total 676 ml 1100 ml Balance 2626 ml 1004.000 ml Intake Oral 1555 ml 360 ml IV Total 1747 ml 1744.000 ml Output Urine Total 675 ml 1100 ml Stool Total 1 ml # Voids 1 # Bowel Movements 2 Laboratory Tests 09/02/18 04:00: White Blood Count 10.2#, Red Blood Count 2.86L, Hemoglobin 8.8L, Hematocrit 25.4L, Mean Corpuscular Volume 89, Mean Corpuscular Hemoglobin 30.7, Mean Corpuscular Hemoglobin Concent 34.6, Red Cell Distribution Width 12.4, Platelet Count 175, Mean Platelet Volume 6.9, Neutrophils (%) (Auto) , Lymphocytes (%) ( Auto) , Monocytes (%) (Auto) , Eosinophils (%) (Auto) , Basophils (%) (Auto) , Sodium Level 142, Potassium Level 3.2L, Chloride Level 106, Carbon Dioxide Level 28, Anion Gap 8, Blood Urea Nitrogen 45H, Creatinine 1.9H, Estimat Glomerular Filtration Rate , Glucose Level 129#H, Calcium Level 8.2L, Total Bilirubin 0.3, Aspartate Amino Transf (AST/SGOT) 44H, Alanine Aminotransferase ( ALT/SGPT) 34, Alkaline Phosphatase 50, Lactate Dehydrogenase 454H, Total Protein 5.5L, Albumin 1.9L, Globulin 3.6, Albumin/Globulin Ratio 0.5L Height (Feet): 5 Height (Inches): 7.00 Weight (Pounds): 159 Objective Thin WM NAD NCAT supple Coars BS and tavares KOLB abd soft no edema non focal Francisco Delgadillo MD Sep 02, 2018 20:40
--- NOTE | 2018-09-02 22:00 | NUR ---
NURSE NOTES: PATIENT REPOSITIONED BY HIMSELF, DENIED PAIN OR SOB AT THIS TIME.
--- NOTE | 2018-09-02 23:15 | Progress Note ---
DATE: 09/02/2018 CARDIOLOGY AND INTERNAL MEDICINE PROGRESS NOTE SUBJECTIVE: The patient's condition has improved. He remains in the intensive care unit however due to a serious condition with guarded prognosis. His oxygen requirements have decreased, but he continues to have cough and congestion at times and requires close nursing and respiratory hygiene. OBJECTIVE: VITAL SIGNS: Blood pressure 127/63, pulse 78, respirations 17, and afebrile. Monitored rhythm, sinus. LUNGS: Bilateral breath sounds with rhonchi. HEART: Regular rhythm and rate. Normal S1, S2 with a fourth heart sound. ABDOMEN: Soft. EXTREMITIES: No edema. LABORATORY DATA: White count 10, hemoglobin 8.8. Potassium 3.2, BUN 45, creatinine 1.9. Albumin 1.9. IMPRESSION: 1. Respiratory failure. 2. Hypoxia. 3. Atypical pneumonia. 4. Bilateral infiltrates. 5. Severe protein-calorie malnutrition. 6. Adrenal insufficiency. 7. Hypokalemia. 8. Hypomagnesemia. 9. History of melanoma. 10. Type 2 diabetes mellitus. PLAN: 1. Maintain adequate hydration. 2. Replace electrolytes as well as magnesium. 3. Encourage nutritional intake. 4. Taper oxygen as able. 5. Continue aggressive respiratory hygiene. 6. Antimicrobials per Infectious Disease marine consultant. 7. Insulin by sliding scale. 8. Endocrine to adjust steroid dosing based on metabolic needs. Brook Calles JOB#: [id number] CC:
[2018-09-03] VITALS (18 sets, daily range): BP systolic 96–153; BP diastolic 56–82
--- NOTE | 2018-09-03 00:20 | NUR ---
NURSE NOTES: PATIENT WATCHED THE TV, NO ACUTE DISTRESS NOTED.
[2018-09-03] MEDS: Albuterol/Ipratropium 3ml neb HHN SCH ×4 (00:52→19:21)
--- NOTE | 2018-09-03 02:10 | NUR ---
NURSE NOTES: NO ACUTE DISTRESS NOTED AT THIS TIME.
--- NOTE | 2018-09-03 03:50 | NUR ---
NURSE NOTES: NO N/V NOTED, ASLEEP STATUS, WILL CONTINUE TO MONITOR.
[2018-09-03 05:12] LABS: HEMATOCRIT 25.1 % (42.0-52.0); HEMOGLOBIN 8.4 G/DL (14.2-18.0); MEAN CORPUSCULAR VOLUME 88 FL (80-99); PLATELET COUNT 193 K/UL (150-450); RED BLOOD COUNT 2.84 M/UL (4.70-6.10); RED CELL DISTRIBUTION WIDTH 12.6 % (11.6-14.8); WHITE BLOOD COUNT 9.3 K/UL (4.8-10.8)
[2018-09-03 05:29] LABS: ANION GAP 10 mmol/L (5-15); BLOOD UREA NITROGEN 31 mg/dL (7-18); CARBON DIOXIDE 27 MMOL/L (21-32); CHLORIDE 106 MMOL/L (98-107); CREATININE 1.9 MG/DL (0.55-1.30); PHOSPHORUS 2.8 MG/DL (2.5-4.9); POTASSIUM 3.5 MMOL/L (3.5-5.1); SODIUM 143 MMOL/L (136-145)
[2018-09-03] MEDS: D5W w/KCl 20mEq 1,000 ML IV SCH (05:34)
[2018-09-03] MEDS: Hydrocortisone 100mg Inj IV SCH ×3 (05:35→21:49)
[2018-09-03] MEDS: NovoLOG Insulin Flexpen SUBQ SCH ×4 (06:30→20:54)
--- NOTE | 2018-09-03 06:40 | NUR ---
NURSE NOTES: MORNING CARE WAS DONE.
--- NOTE | 2018-09-03 07:15 | NUR ---
HAND-OFF: Report given to MARIA L/FAY.
--- NOTE | 2018-09-03 07:20 | NUR ---
NURSE NOTES: Received pt from Ben RN. Pt awake, alert and oriented, able to make needs known. Pt connected to conveyor monitor, SR. Pt saturating 98% on room arm, denies SOB. Urinal at bedside with clear yellow urine. Pt denies pain or discomfort. RADHA PICC noted with D5W at 50 cc/hr. Safety measures in place with bed locked and in lowest position, side rails x2 up and call light within reach. Will continue to monitor and continue plan of care.
[2018-09-03] MEDS: Magnesium Oxide 400mg tab ORAL SCH ×3 (08:22→18:19)
[2018-09-03] MEDS: Heparin 5000 units/ml inj SUBQ SCH ×2 (08:27→20:56)
[2018-09-03] MEDS ORDERED: TRIMETHOPRIM IV SCH (09:00)
[2018-09-03] MEDS ORDERED: D5W IV SCH (09:00)
[2018-09-03] MEDS ORDERED: SULFAMETHOXAZOLE IV SCH (09:00)
--- NOTE | 2018-09-03 09:08 | Diagnostic Imaging Report ---
EXAM: XR Chest, 1 View CLINICAL HISTORY: INFECT TECHNIQUE: Frontal view of the chest. COMPARISON: No relevant prior studies available. FINDINGS: Lungs: Interstitial infiltration, left greater than right. Pleural space: Probable small left pleural effusion. No pneumothorax. Heart: Unremarkable. No cardiomegaly. Mediastinum: Unremarkable. Bones/joints: No acute fracture. Vasculature: Prominent aortic knob. Tubes, lines and devices: Right PICC line in the SVC. Other findings: Surgical changes left side of the neck. IMPRESSION: Interstitial infiltration, left greater than right.
[2018-09-03] MEDS ORDERED: Tubing IV Secondary IV ONE ×2 (10:13→17:32)
[2018-09-03] MEDS ORDERED: NS 275ml ONE (10:13)
--- NOTE | 2018-09-03 10:55 | Nephrology Progress Note ---
Assessment/Plan Problem List: (1) Respiratory failure (2) ROSA (acute kidney injury) (3) Sepsis (4) Adrenal insufficiency (5) Healthcare-associated pneumonia Plan cxr represent pneumonia rather than chf, will stop lasix for now, replace K, now off pressors, hydrate can dc iv now , Lm low likely prerenal, avoid over hydration dc reyes , voiding trial, lab better Subjective Constitutional: Reports: weakness HEENT: Reports: no symptoms Genitourinary: Reports: no symptoms Neurologic/Psychiatric: Reports: no symptoms Objective Objective Last 24 Hour Vital Signs Date Time Temp Pulse Resp B/P (MAP) Pulse Ox O2 Delivery O2 Flow Rate FiO2 09/03/18 10:00 82 18 134/66 (88) 96 09/03/18 09:00 83 21 107/57 (74) 93 09/03/18 08:00 87 09/03/18 08:00 97.8 90 17 129/82 (98) 100 09/03/18 08:00 Room Air Room Air 09/03/18 07:24 78 16 100 Room Air 21 09/03/18 07:14 99 Room Air 21 09/03/18 07:14 79 20 100 Room Air 21 09/03/18 07:14 Room Air 21 09/03/18 07:00 82 18 130/56 (80) 100 09/03/18 06:00 79 19 153/73 (99) 97 09/03/18 05:00 77 18 119/59 (79) 97 09/03/18 04:00 Room Air Room Air 09/03/18 04:00 98.0 78 19 104/65 (78) 94 09/03/18 03:41 58 09/03/18 03:00 82 19 125/68 (87) 94 09/03/18 02:00 87 18 96/58 (71) 96 09/03/18 01:02 81 18 97 Room Air 21 09/03/18 01:00 85 18 128/56 (80) 95 09/03/18 00:51 74 20 96 Room Air 21 09/03/18 00:00 Room Air Room Air Room Air 09/03/18 00:00 98.6 75 20 130/59 (82) 96 09/02/18 23:26 47 09/02/18 23:00 83 18 125/87 (100) 96 09/02/18 22:00 85 20 131/63 (85) 96 09/02/18 21:00 84 19 118/89 (99) 98 09/02/18 20:06 80 16 100 Room Air 21 09/02/18 20:05 53 09/02/18 20:00 Room Air Room Air Room Air 09/02/18 20:00 98.6 78 17 127/63 (84) 99 09/02/18 19:57 Room Air 09/02/18 19:57 78 16 100 Room Air 21 09/02/18 19:56 100 Room Air 09/02/18 19:00 78 18 125/71 (89) 96 09/02/18 18:00 75 21 105/65 (78) 98 09/02/18 17:00 75 16 125/66 (85) 97 09/02/18 16:00 Room Air Room Air Room Air 09/02/18 16:00 85 09/02/18 16:00 97.8 81 16 125/52 (76) 94 09/02/18 15:00 89 16 116/103 (107) 96 09/02/18 14:00 87 19 134/63 (86) 97 09/02/18 13:40 80 22 100 Nasal Cannula 4.0 36 09/02/18 13:30 75 20 100 Nasal Cannula 4.0 36 09/02/18 13:00 72 20 138/67 (90) 100 09/02/18 12:00 Nasal Cannula 3.0 Nasal Cannula 3.0 Nasal Cannula 3.0 09/02/18 12:00 70 09/02/18 12:00 97.7 70 16 115/53 (73) 98 09/02/18 11:00 67 20 95/44 (61) 97 Intake and Output 09/02/18 09/03/18 19:00 07:00 Intake Total 3527 ml 2182 ml Output Total 1375 ml 1370 ml Balance 2152 ml 812 ml Intake Oral 1980 ml 810 ml IV Total 1547 ml 1272 ml Other 100 ml Output Urine Total 1375 ml 1370 ml # Voids 5 Laboratory Tests 09/03/18 04:00: White Blood Count 9.3, Red Blood Count 2.84L, Hemoglobin 8.4L, Hematocrit 25.1L , Mean Corpuscular Volume 88, Mean Corpuscular Hemoglobin 29.6, Mean Corpuscular Hemoglobin Concent 33.6, Red Cell Distribution Width 12.6, Platelet Count 193, Mean Platelet Volume 7.1, Neutrophils (%) (Auto) , Lymphocytes (%) ( Auto) , Monocytes (%) (Auto) , Eosinophils (%) (Auto) , Basophils (%) (Auto) , Differential Total Cells Counted 100, Neutrophils % (Manual) 85H, Lymphocytes % (Manual) 4L, Monocytes % (Manual) 4, Eosinophils % (Manual) 0, Basophils % ( Manual) 0, Metamyelocytes % 2H, Band Neutrophils 5, Platelet Estimate Adequate, Platelet Morphology Normal, Red Blood Cell Morphology Normal, Sodium Level 143, Potassium Level 3.5, Chloride Level 106, Carbon Dioxide Level 27, Anion Gap 10, Blood Urea Nitrogen 31H, Creatinine 1.9H, Estimat Glomerular Filtration Rate , Glucose Level 137H, Calcium Level 8.0L, Phosphorus Level 2.8, Magnesium Level 1.8 Height (Feet): 5 Height (Inches): 7.00 Weight (Pounds): 161 General Appearance: no apparent distress, alert EENT: normal ENT inspection Neck: normal alignment Cardiovascular: normal rate Respiratory/Chest: lungs clear Abdomen: non tender, soft Extremities: other - no edema Neurologic: shelf stocker II-XII grossly normal Cesar Nunez MD Sep 03, 2018 10:55
--- NOTE | 2018-09-03 11:30 | NUR ---
NURSE NOTES: Dr Nunez here to see pt, IVF discontinued. No acute distress. Will continue to monitor.
--- NOTE | 2018-09-03 11:41 | Pulmonolgy Critical Care Note ---
Critical Care - Asmt/Plan Assessment/Plan: Pulmonary CC Progress Note Assessment/Plan IMPRESSION: 1. Malignant melanoma. 2. Javy's disease. 3. Improving oxygenation 4. S/p extubation HISTORY OF PRESENT ILLNESS: The patient was admitted sepsis of unclear etiology. His initial chest x-ray was negative. He had a past history of stage IV melanoma, which has been treated with immunotherapy. Following admission, he was treated with antibiotics and other medications, but his condition declined and three days ago, he was intubated for respiratory failure and transferred to intensive care. He was found to have probable pneumonia and possible congestive heart failure. PAST MEDICAL HISTORY: Includes adrenal insufficiency, malignant melanoma stage IV undergoing immunotherapy, hypertension, cholecystectomy, diabetes, hypothyroid, and hernia repair. ALLERGIES: None. MEDICATIONS: Reviewed. PHYSICAL EXAMINATION: VSS noted GENERAL: The patient is alert and nods his head. He tries to speak, but has an oral endotracheal tube in place. The patient appears to have significant muscle wasting. VITAL SIGNS: Stable without pressors or sedatives. HEENT: Head, normocephalic. Mouth, oral endotracheal tube in place on ventilatory support. NECK: No jugular vein distention. CHEST: Clear. CARDIAC: Rhythm regular. ABDOMEN: Soft and nontender. EXTREMITIES: No clubbing, cyanosis, or edema. DISCUSSION: Continue present care CXR better; has improving FiO2 requirements; now on low flow nasal o2 Performed bedside endotracheal lavage yesterday; no complications No anesthesia given Specimen sent for Gm stain as well as PCP DFA Subjective Constitutional: Reports: no symptoms HEENT: Repors: no symptoms Respiratory: Reports: no symptoms Cardiovascular: Reports: no symptoms Gastrointestinal/Abdominal: Reports: no symptoms Allergies: Coded Allergies: No Known Allergies (Unverified , 08/22/18) Objective Microbiology Date/Time Source Procedure Growth Status 09/01/18 19:00 Sputum Induced Gram Stain Pending Resulted 09/01/18 19:00 Sputum Induced Sputum Culture - Preliminary Resulted 08/31/18 13:10 Sputum Induced Gram Stain - Final Complete 08/31/18 13:10 Sputum Culture - Final Cyndee Albicans Complete 08/31/18 18:05 Indwelling Cath Urine Culture - Preliminary NO GROWTH AFTER 24 HOURS Resulted Laboratory Tests 09/02/18 04:00: White Blood Count 10.2#, Red Blood Count 2.86L, Hemoglobin 8.8L, Hematocrit 25.4L, Mean Corpuscular Volume 89, Mean Corpuscular Hemoglobin 30.7, Mean Corpuscular Hemoglobin Concent 34.6, Red Cell Distribution Width 12.4, Platelet Count 175, Mean Platelet Volume 6.9, Neutrophils (%) (Auto) , Lymphocytes (%) ( Auto) , Monocytes (%) (Auto) , Eosinophils (%) (Auto) , Basophils (%) (Auto) , Sodium Level 142, Potassium Level 3.2L, Chloride Level 106, Carbon Dioxide Level 28, Anion Gap 8, Blood Urea Nitrogen 45H, Creatinine 1.9H, Estimat Glomerular Filtration Rate , Glucose Level 129#H, Calcium Level 8.2L, Total Bilirubin 0.3, Aspartate Amino Transf (AST/SGOT) 44H, Alanine Aminotransferase ( ALT/SGPT) 34, Alkaline Phosphatase 50, Lactate Dehydrogenase 454H, Total Protein 5.5L, Albumin 1.9L, Globulin 3.6, Albumin/Globulin Ratio 0.5L Current Medications Medications (Trade) Dose Ordered Sig/Elli Route PRN Reason Start Time Stop Time Status Last Admin Dose Admin Acetaminophen (Tylenol) 650 mg Q4H PRN RECTAL Mild Pain (Pain Scale 1-3) 08/26/18 11:00 09/25/18 10:59 08/29/18 20:09 Albuterol/ Ipratropium (Albuterol/ Ipratropium) 3 ml Q6HRT HHN 09/02/18 01:00 09/07/18 00:59 09/02/18 06:54 Azithromycin 500 mg/Dextrose 275 ml @ 275 mls/hr Q24HRS IV 08/30/18 17:00 09/05/18 17:59 09/01/18 16:46 Chlorhexidine Gluconate (Gabrilea-Hex 2%) 1 applic DAILY@2000 TOPIC 08/26/18 20:00 09/25/18 19:59 09/01/18 20:15 Dextrose (Dextrose 50%) 25 ml Q30M PRN IV Hypoglycemia 08/25/18 08:30 09/21/18 23:29 Dextrose (Dextrose 50%) 50 ml Q30M PRN IV Hypoglycemia 08/25/18 08:30 09/21/18 23:29 Dextrose/ Electrolytes 1,000 ml @ 50 mls/hr Q20H IV 08/31/18 17:30 09/30/18 17:29 09/01/18 11:13 Guaifenesin/ Dextromethorphan (Robitussin DM Syrup) 5 ml Q6H PRN ORAL For Cough 08/25/18 08:30 09/23/18 08:29 09/01/18 20:58 Heparin Sodium (Porcine) (Heparin 5000 units/ml) 5,000 units EVERY 12 HOURS SUBQ 08/25/18 09:00 09/22/18 08:59 09/01/18 20:54 Hydrocortisone (Solu-CORTEF) 25 mg EVERY 8 HOURS IV 08/30/18 14:00 09/25/18 21:59 09/02/18 06:05 Insulin Aspart (NovoLOG) BEFORE MEALS AND HS SUBQ 08/31/18 21:00 09/30/18 20:59 09/02/18 06:12 Levothyroxine Sodium (Synthroid) 75 mcg DAILY IV 08/28/18 09:00 09/27/18 08:59 09/01/18 11:14 Lorazepam (Ativan 2mg/ml 1ml) 1 mg Q6H PRN IV For Anxiety 08/27/18 22:30 09/03/18 22:29 08/29/18 07:45 Magnesium Oxide (Mag-Ox 400mg) 400 mg THREE TIMES A DAY ORAL 09/01/18 18:00 10/01/18 17:59 09/01/18 17:36 Meropenem 1 gm/ Sodium Chloride 100 ml @ 200 mls/hr Q12HR@0600,1800 IVPB 08/30/18 18:00 09/04/18 17:59 09/02/18 06:10 Ondansetron HCl (Zofran) 4 mg Q4H PRN IVP Nausea & Vomiting 08/25/18 09:15 09/22/18 17:03 08/27/18 20:40 Pantoprazole (Protonix) 40 mg DAILY ORAL 08/25/18 09:00 09/24/18 08:59 09/01/18 09:05 Tramadol HCl (Ultram) 50 mg TIDPRN PRN ORAL Pain level of 3-6 08/30/18 16:00 09/06/18 15:59 09/01/18 20:59 Trimethoprim/ Sulfamethoxazole 22 ml/Dextrose 572 ml @ 381.333 mls/hr Q12H IV 09/03/18 09:00 09/10/18 08:59 Trimethoprim/ Sulfamethoxazole 22 ml/Dextrose 572 ml @ 381.333 mls/hr Q8H IV 08/31/18 20:00 09/02/18 22:00 09/02/18 03:43 Voriconazole (Vfend) 200 mg Q12HR ORAL 08/30/18 21:00 09/06/18 20:59 09/01/18 20:53 Critical Care - Objective Last 24 Hour Vital Signs Date Time Temp Pulse Resp B/P (MAP) Pulse Ox O2 Delivery O2 Flow Rate FiO2 09/03/18 10:00 82 18 134/66 (88) 96 09/03/18 09:00 83 21 107/57 (74) 93 09/03/18 08:00 87 09/03/18 08:00 97.8 90 17 129/82 (98) 100 09/03/18 08:00 Room Air Room Air 09/03/18 07:24 78 16 100 Room Air 21 09/03/18 07:14 99 Room Air 21 09/03/18 07:14 79 20 100 Room Air 21 09/03/18 07:14 Room Air 21 09/03/18 07:00 82 18 130/56 (80) 100 09/03/18 06:00 79 19 153/73 (99) 97 09/03/18 05:00 77 18 119/59 (79) 97 09/03/18 04:00 Room Air Room Air 09/03/18 04:00 98.0 78 19 104/65 (78) 94 09/03/18 03:41 58 09/03/18 03:00 82 19 125/68 (87) 94 09/03/18 02:00 87 18 96/58 (71) 96 09/03/18 01:02 81 18 97 Room Air 21 09/03/18 01:00 85 18 128/56 (80) 95 09/03/18 00:51 74 20 96 Room Air 21 09/03/18 00:00 Room Air Room Air Room Air 09/03/18 00:00 98.6 75 20 130/59 (82) 96 09/02/18 23:26 47 09/02/18 23:00 83 18 125/87 (100) 96 09/02/18 22:00 85 20 131/63 (85) 96 09/02/18 21:00 84 19 118/89 (99) 98 09/02/18 20:06 80 16 100 Room Air 21 09/02/18 20:05 53 09/02/18 20:00 Room Air Room Air Room Air 09/02/18 20:00 98.6 78 17 127/63 (84) 99 09/02/18 19:57 Room Air 09/02/18 19:57 78 16 100 Room Air 21 09/02/18 19:56 100 Room Air 09/02/18 19:00 78 18 125/71 (89) 96 09/02/18 18:00 75 21 105/65 (78) 98 09/02/18 17:00 75 16 125/66 (85) 97 09/02/18 16:00 Room Air Room Air Room Air 09/02/18 16:00 85 09/02/18 16:00 97.8 81 16 125/52 (76) 94 09/02/18 15:00 89 16 116/103 (107) 96 09/02/18 14:00 87 19 134/63 (86) 97 09/02/18 13:40 80 22 100 Nasal Cannula 4.0 36 09/02/18 13:30 75 20 100 Nasal Cannula 4.0 36 09/02/18 13:00 72 20 138/67 (90) 100 09/02/18 12:00 Nasal Cannula 3.0 Nasal Cannula 3.0 Nasal Cannula 3.0 09/02/18 12:00 70 09/02/18 12:00 97.7 70 16 115/53 (73) 98 Micro: Microbiology Date/Time Source Procedure Growth Status 09/01/18 19:00 Sputum Induced Gram Stain - Final Resulted 09/01/18 19:00 Sputum Induced Sputum Culture - Preliminary NO GROWTH AFTER 24 HOURS Resulted 08/31/18 13:10 Sputum Induced Pneumocystis jiroveci Smear (DFA) - Final Complete 08/31/18 13:10 Sputum Induced Gram Stain - Final Complete 08/31/18 13:10 Sputum Culture - Final Cyndee Albicans Complete 08/31/18 18:05 Indwelling Cath Urine Culture - Final NO GROWTH AFTER 48 HOURS Complete Accucheck: 191 Critical Care - Subjective ROS Limited/Unobtainable: Yes Condition: stable FI02: 21 Vent Support Breath Rate: 16 Vent Support Mode: IMV/SIMV Vent Tidal Volume: 600 Sputum Amount: None PEEP: 5.0 PIP: 18 Tube Feeding Amount: 10 I&O: Intake and Output 09/02/18 09/03/18 19:00 07:00 Intake Total 3527 ml 2182 ml Output Total 1375 ml 1370 ml Balance 2152 ml 812 ml Intake Oral 1980 ml 810 ml IV Total 1547 ml 1272 ml Other 100 ml Output Urine Total 1375 ml 1370 ml # Voids 5 ET-Tube: 8.0 ET Position: 26 Nathaniel Villegas MD Sep 03, 2018 11:41
--- NOTE | 2018-09-03 12:16 | General Surgery Progress Note ---
General Surgery-Progress Note Subjective Symptoms: improved, pain absent, tolerating diet, passing flatus Additional Comments improving Objective Last 24 Hour Vital Signs Date Time Temp Pulse Resp B/P (MAP) Pulse Ox O2 Delivery O2 Flow Rate FiO2 09/03/18 10:00 82 18 134/66 (88) 96 09/03/18 09:00 83 21 107/57 (74) 93 09/03/18 08:00 87 09/03/18 08:00 97.8 90 17 129/82 (98) 100 09/03/18 08:00 Room Air Room Air 09/03/18 07:24 78 16 100 Room Air 21 09/03/18 07:14 99 Room Air 21 09/03/18 07:14 79 20 100 Room Air 21 09/03/18 07:14 Room Air 21 09/03/18 07:00 82 18 130/56 (80) 100 09/03/18 06:00 79 19 153/73 (99) 97 09/03/18 05:00 77 18 119/59 (79) 97 09/03/18 04:00 Room Air Room Air 09/03/18 04:00 98.0 78 19 104/65 (78) 94 09/03/18 03:41 58 09/03/18 03:00 82 19 125/68 (87) 94 09/03/18 02:00 87 18 96/58 (71) 96 09/03/18 01:02 81 18 97 Room Air 21 09/03/18 01:00 85 18 128/56 (80) 95 09/03/18 00:51 74 20 96 Room Air 21 09/03/18 00:00 Room Air Room Air Room Air 09/03/18 00:00 98.6 75 20 130/59 (82) 96 09/02/18 23:26 47 09/02/18 23:00 83 18 125/87 (100) 96 09/02/18 22:00 85 20 131/63 (85) 96 09/02/18 21:00 84 19 118/89 (99) 98 09/02/18 20:06 80 16 100 Room Air 21 09/02/18 20:05 53 09/02/18 20:00 Room Air Room Air Room Air 09/02/18 20:00 98.6 78 17 127/63 (84) 99 09/02/18 19:57 Room Air 09/02/18 19:57 78 16 100 Room Air 21 09/02/18 19:56 100 Room Air 09/02/18 19:00 78 18 125/71 (89) 96 09/02/18 18:00 75 21 105/65 (78) 98 09/02/18 17:00 75 16 125/66 (85) 97 09/02/18 16:00 Room Air Room Air Room Air 09/02/18 16:00 85 09/02/18 16:00 97.8 81 16 125/52 (76) 94 09/02/18 15:00 89 16 116/103 (107) 96 09/02/18 14:00 87 19 134/63 (86) 97 09/02/18 13:40 80 22 100 Nasal Cannula 4.0 36 09/02/18 13:30 75 20 100 Nasal Cannula 4.0 36 09/02/18 13:00 72 20 138/67 (90) 100 I&O Intake and Output 09/02/18 09/03/18 19:00 07:00 Intake Total 3527 ml 2182 ml Output Total 1375 ml 1370 ml Balance 2152 ml 812 ml Intake Oral 1980 ml 810 ml IV Total 1547 ml 1272 ml Other 100 ml Output Urine Total 1375 ml 1370 ml # Voids 5 Drains: none Cardiovascular: RSR Respiratory: clear Abdomen: soft, flat, non-tender, present bowel sounds Extremities: no cyanosis Laboratory Tests Test 09/03/18 04:00 White Blood Count 9.3 K/UL (4.8-10.8) Red Blood Count 2.84 M/UL (4.70-6.10) L Hemoglobin 8.4 G/DL (14.2-18.0) L Hematocrit 25.1 % (42.0-52.0) L Mean Corpuscular Volume 88 FL (80-99) Mean Corpuscular Hemoglobin 29.6 PG (27.0-31.0) Mean Corpuscular Hemoglobin Concent 33.6 G/DL (32.0-36.0) Red Cell Distribution Width 12.6 % (11.6-14.8) Platelet Count 193 K/UL (150-450) Mean Platelet Volume 7.1 FL (6.5-10.1) Neutrophils (%) (Auto) % (45.0-75.0) Lymphocytes (%) (Auto) % (20.0-45.0) Monocytes (%) (Auto) % (1.0-10.0) Eosinophils (%) (Auto) % (0.0-3.0) Basophils (%) (Auto) % (0.0-2.0) Differential Total Cells Counted 100 Neutrophils % (Manual) 85 % (45-75) H Lymphocytes % (Manual) 4 % (20-45) L Monocytes % (Manual) 4 % (1-10) Eosinophils % (Manual) 0 % (0-3) Basophils % (Manual) 0 % (0-2) Metamyelocytes % 2 % (0-0) H Band Neutrophils 5 % (0-8) Platelet Estimate Adequate Platelet Morphology Normal Red Blood Cell Morphology Normal Sodium Level 143 MMOL/L (136-145) Potassium Level 3.5 MMOL/L (3.5-5.1) Chloride Level 106 MMOL/L (98-107) Carbon Dioxide Level 27 MMOL/L (21-32) Anion Gap 10 mmol/L (5-15) Blood Urea Nitrogen 31 mg/dL (7-18) H Creatinine 1.9 MG/DL (0.55-1.30) H Estimat Glomerular Filtration Rate mL/min (>60) Glucose Level 137 MG/DL (74-106) H Calcium Level 8.0 MG/DL (8.5-10.1) L Phosphorus Level 2.8 MG/DL (2.5-4.9) Magnesium Level 1.8 MG/DL (1.8-2.4) Plan Problems: (1) Sepsis (2) Abdominal distension (gaseous) Assessment & Plan: Abdominal distention / discomfort. no n/v/f/c. +flatus. feels bloated. exam with mild distention/non tender CT - Mildly fluid-filled small bowel loops, nonspecific, No acute process otherwise, Postcholecystectomy changes. What are probably hepatic cysts adjacent to the gallbladder fossa mimics fluid in the gallbladder fossa on the axial views, but appear to be cysts on the coronal images. Nonetheless, biloma or other pathologic collection not completely excludable Multiple nonobstructive left renal calculi Sarmiento catheter Bilateral basilar pulmonary interstitial prominence, nonspecific Scoliosis and spondylosis KUB - Nonspecific prominent but not frankly dilated gas-filled small bowel loops , decreased from previous day's exam Satisfactory position right groin central venous catheter worsening respiratory status requiring intubation abdominal exam unchanged KUB okay no signs of obstruction labs improved. gas okay recovering -no acute surgical intervention planned -Rx as written -diet as tolerated -appreciate ICU team care -will follow clinically with exams thank you for allowing me to participate in patients care David Daley Sep 03, 2018 12:16
--- NOTE | 2018-09-03 15:10 | NUR ---
NURSE NOTES: Pt family visiting. No acute distress. Will continue to monitor.
--- NOTE | 2018-09-03 16:06 | NUR ---
HAND-OFF: Report given to Demetra APONTE.
--- NOTE | 2018-09-03 16:07 | NUR ---
NURSE NOTES: Received patient from FAY Mares. Patient in bed, awake, and alert. Verbally responsive and able to follow commands. In room air. No SOB. Respirations are even and unlaboured. monitoring tech is in placed. Right Upper Arm PICC asymptomatic and patent. Son and are at bedside. Will continue to follow plan of care.
[2018-09-03] MEDS ORDERED: LORazepam Inj 2mg/ml 1ml IV PRN (16:30)
--- NOTE | 2018-09-03 16:44 | General Progress Note ---
Assessment/Plan Assessment/Plan Assessment - abnormal LFT - Melanoma - s/p cholecystectomy - Urolithiasis - Anemia - Pneumonia - Azotemia Recommendations - Abx per ID - ICU care - cardiology / pulmonary follow up - po diet as tolerated - follow labs and exam - EGD/colon at a later date once stable Subjective Allergies: Coded Allergies: No Known Allergies (Unverified , 08/22/18) Subjective eating OK no abdominal complaints d/w RN Objective Last 24 Hour Vital Signs Date Time Temp Pulse Resp B/P (MAP) Pulse Ox O2 Delivery O2 Flow Rate FiO2 09/03/18 15:00 81 18 130/62 (84) 99 09/03/18 14:20 74 18 98 Room Air 21 09/03/18 14:10 79 16 100 Room Air 21 09/03/18 14:00 79 19 130/72 (91) 98 09/03/18 13:00 77 17 125/68 (87) 98 09/03/18 12:00 Room Air Room Air 09/03/18 12:00 98.0 77 17 125/69 (87) 99 09/03/18 12:00 79 09/03/18 11:00 80 20 135/67 (89) 95 09/03/18 10:00 82 18 134/66 (88) 96 09/03/18 09:00 83 21 107/57 (74) 93 09/03/18 08:00 87 09/03/18 08:00 97.8 90 17 129/82 (98) 100 09/03/18 08:00 Room Air Room Air 09/03/18 07:24 78 16 100 Room Air 21 09/03/18 07:14 99 Room Air 21 09/03/18 07:14 79 20 100 Room Air 21 09/03/18 07:14 Room Air 21 09/03/18 07:00 82 18 130/56 (80) 100 09/03/18 06:00 79 19 153/73 (99) 97 09/03/18 05:00 77 18 119/59 (79) 97 09/03/18 04:00 Room Air Room Air 09/03/18 04:00 98.0 78 19 104/65 (78) 94 09/03/18 03:41 58 09/03/18 03:00 82 19 125/68 (87) 94 09/03/18 02:00 87 18 96/58 (71) 96 09/03/18 01:02 81 18 97 Room Air 21 09/03/18 01:00 85 18 128/56 (80) 95 09/03/18 00:51 74 20 96 Room Air 21 09/03/18 00:00 Room Air Room Air Room Air 09/03/18 00:00 98.6 75 20 130/59 (82) 96 09/02/18 23:26 47 09/02/18 23:00 83 18 125/87 (100) 96 09/02/18 22:00 85 20 131/63 (85) 96 09/02/18 21:00 84 19 118/89 (99) 98 09/02/18 20:06 80 16 100 Room Air 21 09/02/18 20:05 53 09/02/18 20:00 Room Air Room Air Room Air 09/02/18 20:00 98.6 78 17 127/63 (84) 99 09/02/18 19:57 Room Air 09/02/18 19:57 78 16 100 Room Air 21 09/02/18 19:56 100 Room Air 09/02/18 19:00 78 18 125/71 (89) 96 09/02/18 18:00 75 21 105/65 (78) 98 09/02/18 17:00 75 16 125/66 (85) 97 Intake and Output 09/02/18 09/03/18 19:00 07:00 Intake Total 3527 ml 2182 ml Output Total 1375 ml 1370 ml Balance 2152 ml 812 ml Intake Oral 1980 ml 810 ml IV Total 1547 ml 1272 ml Other 100 ml Output Urine Total 1375 ml 1370 ml # Voids 5 Laboratory Tests 09/03/18 04:00: White Blood Count 9.3, Red Blood Count 2.84L, Hemoglobin 8.4L, Hematocrit 25.1L , Mean Corpuscular Volume 88, Mean Corpuscular Hemoglobin 29.6, Mean Corpuscular Hemoglobin Concent 33.6, Red Cell Distribution Width 12.6, Platelet Count 193, Mean Platelet Volume 7.1, Neutrophils (%) (Auto) , Lymphocytes (%) ( Auto) , Monocytes (%) (Auto) , Eosinophils (%) (Auto) , Basophils (%) (Auto) , Differential Total Cells Counted 100, Neutrophils % (Manual) 85H, Lymphocytes % (Manual) 4L, Monocytes % (Manual) 4, Eosinophils % (Manual) 0, Basophils % ( Manual) 0, Metamyelocytes % 2H, Band Neutrophils 5, Platelet Estimate Adequate, Platelet Morphology Normal, Red Blood Cell Morphology Normal, Sodium Level 143, Potassium Level 3.5, Chloride Level 106, Carbon Dioxide Level 27, Anion Gap 10, Blood Urea Nitrogen 31H, Creatinine 1.9H, Estimat Glomerular Filtration Rate , Glucose Level 137H, Calcium Level 8.0L, Phosphorus Level 2.8, Magnesium Level 1.8 Height (Feet): 5 Height (Inches): 7.00 Weight (Pounds): 161 Objective Thin WM NAD NCAT supple Coars BS RR abd soft no edema non focal Francisco Delgadillo MD Sep 03, 2018 16:44
[2018-09-03] MEDS ORDERED: Azithromycin 500 MG in D5W 275 ML IV SCH (17:00)
--- NOTE | 2018-09-03 18:11 | Infectious Diseases Prog Note ---
Assessment/Plan Assessment/Plan ASSESSMENT/PLAN: 1. 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 hcap, ? aspiration, respiratory failure, on vent, ROSA likely secondary to sepsis/hypotension, [place] [facility] steroid use - ? OI infection and pna, ? PJP (PCP), ? aspergillus, ? other, sc- chavez albicans, fungemia risk CT chest noted, s/p endotracheal lavage for respiratory sample and cultures - meropenem, voriconazole (08/30/18) and iv bactrim (08/31/18), discontinue azithromycin (legionella antigen and mycoplasma igm negative) - clinically much improved - base line G6PD ordered, pjp/pcp sample negative - f/u on labs and serology and cultures - steroids - monitor chest x-ray - icu care, bp support, vent support - d/w family at length - d/w pharmacy about abx dosing 2. The patient has a history of adrenal insufficiency. 3. History of melanoma in remission. 4. History of biliary sepsis, status post cholecystectomy. 5. Hypothyroidism. 6. Hypertension. 7. Diabetes. 8. History of cancer, which I believe is the melanoma. 9. Past medical history noted. 10. No known drug allergies. 11. Social history is negative. 12. Family history is negative. 13. MAR was noted. 14. Case was discussed with RN. 15. Case was discussed with Dr. Bonilla. 16. Case was discussed with the patient's family. 17. The patient was seen in the emergency room 18. The patient will need ICU care. 19. Continue treatment per primary consultants. 20. Notes and records were noted. 21. Orders were entered. 22. Case was discussed with pharmacy. 23. Skin care protocol. 24. Time spent - 45 minutes Subjective Constitutional: Denies: fever HEENT: Reports: congestion - less Respiratory: Reports: shortness of breath - less Cardiovascular: Denies: chest pain Gastrointestinal/Abdominal: Denies: nausea, vomiting Genitourinary: Denies: dysuria, hematuria Neurologic: Denies: headache Psychiatric: Denies: depression Skin: Denies: rash Hematologic: Denies: bleeding Musculoskeletal: Denies: pain Allergies: Coded Allergies: No Known Allergies (Unverified , 08/22/18) Objective Vital Signs Last 24 Hour Vital Signs Date Time Temp Pulse Resp B/P (MAP) Pulse Ox O2 Delivery O2 Flow Rate FiO2 09/03/18 16:00 97.7 81 20 132/73 (92) 94 09/03/18 15:56 80 09/03/18 15:00 81 18 130/62 (84) 99 09/03/18 14:20 74 18 98 Room Air 21 09/03/18 14:10 79 16 100 Room Air 21 09/03/18 14:00 79 19 130/72 (91) 98 09/03/18 13:00 77 17 125/68 (87) 98 09/03/18 12:00 Room Air Room Air 09/03/18 12:00 98.0 77 17 125/69 (87) 99 09/03/18 12:00 79 09/03/18 11:00 80 20 135/67 (89) 95 09/03/18 10:00 82 18 134/66 (88) 96 09/03/18 09:00 83 21 107/57 (74) 93 09/03/18 08:00 87 09/03/18 08:00 97.8 90 17 129/82 (98) 100 09/03/18 08:00 Room Air Room Air 09/03/18 07:24 78 16 100 Room Air 21 09/03/18 07:14 99 Room Air 21 09/03/18 07:14 79 20 100 Room Air 21 09/03/18 07:14 Room Air 21 09/03/18 07:00 82 18 130/56 (80) 100 09/03/18 06:00 79 19 153/73 (99) 97 09/03/18 05:00 77 18 119/59 (79) 97 09/03/18 04:00 Room Air Room Air 09/03/18 04:00 98.0 78 19 104/65 (78) 94 09/03/18 03:41 58 09/03/18 03:00 82 19 125/68 (87) 94 09/03/18 02:00 87 18 96/58 (71) 96 09/03/18 01:02 81 18 97 Room Air 21 09/03/18 01:00 85 18 128/56 (80) 95 09/03/18 00:51 74 20 96 Room Air 21 09/03/18 00:00 Room Air Room Air Room Air 09/03/18 00:00 98.6 75 20 130/59 (82) 96 09/02/18 23:26 47 09/02/18 23:00 83 18 125/87 (100) 96 09/02/18 22:00 85 20 131/63 (85) 96 09/02/18 21:00 84 19 118/89 (99) 98 09/02/18 20:06 80 16 100 Room Air 21 09/02/18 20:05 53 09/02/18 20:00 Room Air Room Air Room Air 09/02/18 20:00 98.6 78 17 127/63 (84) 99 09/02/18 19:57 Room Air 09/02/18 19:57 78 16 100 Room Air 21 09/02/18 19:56 100 Room Air 09/02/18 19:00 78 18 125/71 (89) 96 Height (Feet): 5 Height (Inches): 7.00 Weight (Pounds): 161 General Appearance: no acute distress HEENT: normocephalic, atraumatic, anicteric, EOMI, supple, no JVD Respiratory/Chest: crackles/rales - less, rhonchi - bilaterally - less Cardiovascular: normal rate, regular rhythm, no gallop/murmur, no JVD Abdomen: normal bowel sounds, soft, non tender, no organomegaly, non distended Genitourinary: other - no reyes, no cva pain Extremities: no cyanosis Skin: no rash 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 What are probably hepatic cysts adjacent to the gallbladder fossa mimics fluid in the gallbladder fossa on the axial views, but appear to be cysts on the coronal images. Nonetheless, biloma or other pathologic collection not completely excludable Multiple nonobstructive left renal calculi Reyes catheter Bilateral basilar pulmonary interstitial prominence, nonspecific Scoliosis and spondylosis Chest x-ray - nad x 2, reports noted Chest x-ray - 08/25/18 Impression: Interval worsening of aeration with development of dense airspace opacities in the medial right mid/lower lung and patchy opacities in the right upper lung concerning for multifocal pneumonia. Perihilar interstitial opacities in the left raise question for a degree of underlying congestion/fluid overload. Clinical correlation/follow-up recommended. Findings discussed with ordering physician Dr. Bonilla at time of dictation of the final report. Chest - x-ray - 08/26/18 - Procedure: XRAY Chest 1v Indication: Shortness of breath Technique: One view of the chest Comparison: 08/25/2018 Findings: Less optimal inspiration currently Extensive bilateral infiltrates versus edema appear unchanged on the right, slightly worse on the left. There may be some pleural fluid on the left. The heart size is normal Impression: Bilateral infiltrates again demonstrated, slightly worse on the left over one Chest x-ray - 08/28 - COMPARISON: Chest x-rays dated 08/27/18 FINDINGS: Lungs: Patchy perihilar opacities, which may represent pulmonary edema versus infiltrates, not significantly changed compared to the prior exam. Pleural space: Unremarkable. The costophrenic angles are sharp. No visible pneumothorax. Heart: Unremarkable. No cardiomegaly. Mediastinum: Unremarkable. Bones/joints: Unremarkable. Tubes, lines and devices: Stable positioning of the endotracheal tube and nasogastric tube. EKG leads overlie the thorax. IMPRESSION: No significant interval change in the patchy perihilar opacities, which may represent pulmonary edema versus infiltrates. Chest x-ray - 08/30/18 - FINDINGS: Lungs: Mild interstitial prominence minimally improved and slightly worsened bibasilar streaky airspace opacities. Pleural space: Unremarkable. No pneumothorax. Heart: Unremarkable. No cardiomegaly. Mediastinum: Unremarkable. Bones/joints: Unremarkable. Soft tissues: Left neck surgical clips. Tubes, lines and devices: Stable right PICC line. Interval removal of the previously seen endotracheal tube and NG tube. IMPRESSION: Mild interstitial prominence minimally improved and slightly worsened bibasilar streaky airspace opacities. Chest x-ray - 09/01 - Comparison: 08/30/2018: CT chest 08/31/2018 Findings: Heart size stable. Right-sided PICC line again noted. Interstitial and patchy bilateral airspace opacities again noted, not significant change allowing for differences in lung volumes. Small left pleural effusion. No pneumothorax. Surgical clips again noted in the left neck. Osseous structures stable. Impression: No significant interval change in the radiographic appearance of the chest compared to the prior exam allowing for differences in lung volumes. CT chest - IMPRESSION: * Bilateral predominantly perihilar nonspecific groundglass opacities may be reflective of a multifocal pneumonia. Component of edema may also be likely especially given mild smooth septal thickening. Correlate clinically. * Small bilateral pleural effusions adjacent atelectasis/consolidation in the posterior lower lobes. * Findings suggestive of anemia. 09/03/18 - FINDINGS: Lungs: Interstitial infiltration, left greater than right. Pleural space: Probable small left pleural effusion. No pneumothorax. Heart: Unremarkable. No cardiomegaly. Mediastinum: Unremarkable. Bones/joints: No acute fracture. Vasculature: Prominent aortic knob. Tubes, lines and devices: Right PICC line in the SVC. Other findings: Surgical changes left side of the neck. IMPRESSION: Interstitial infiltration, left greater than right. Microbiology Date/Time Source Procedure Growth Status 09/01/18 19:00 Sputum Induced Gram Stain - Final Resulted 09/01/18 19:00 Sputum Induced Sputum Culture - Preliminary NO GROWTH AFTER 24 HOURS Resulted 08/31/18 18:05 Indwelling Cath Urine Culture - Final NO GROWTH AFTER 48 HOURS Complete Laboratory Tests Test 09/03/18 04:00 White Blood Count 9.3 K/UL (4.8-10.8) Red Blood Count 2.84 M/UL (4.70-6.10) L Hemoglobin 8.4 G/DL (14.2-18.0) L Hematocrit 25.1 % (42.0-52.0) L Mean Corpuscular Volume 88 FL (80-99) Mean Corpuscular Hemoglobin 29.6 PG (27.0-31.0) Mean Corpuscular Hemoglobin Concent 33.6 G/DL (32.0-36.0) Red Cell Distribution Width 12.6 % (11.6-14.8) Platelet Count 193 K/UL (150-450) Mean Platelet Volume 7.1 FL (6.5-10.1) Neutrophils (%) (Auto) % (45.0-75.0) Lymphocytes (%) (Auto) % (20.0-45.0) Monocytes (%) (Auto) % (1.0-10.0) Eosinophils (%) (Auto) % (0.0-3.0) Basophils (%) (Auto) % (0.0-2.0) Differential Total Cells Counted 100 Neutrophils % (Manual) 85 % (45-75) H Lymphocytes % (Manual) 4 % (20-45) L Monocytes % (Manual) 4 % (1-10) Eosinophils % (Manual) 0 % (0-3) Basophils % (Manual) 0 % (0-2) Metamyelocytes % 2 % (0-0) H Band Neutrophils 5 % (0-8) Platelet Estimate Adequate Platelet Morphology Normal Red Blood Cell Morphology Normal Sodium Level 143 MMOL/L (136-145) Potassium Level 3.5 MMOL/L (3.5-5.1) Chloride Level 106 MMOL/L (98-107) Carbon Dioxide Level 27 MMOL/L (21-32) Anion Gap 10 mmol/L (5-15) Blood Urea Nitrogen 31 mg/dL (7-18) H Creatinine 1.9 MG/DL (0.55-1.30) H Estimat Glomerular Filtration Rate mL/min (>60) Glucose Level 137 MG/DL (74-106) H Calcium Level 8.0 MG/DL (8.5-10.1) L Phosphorus Level 2.8 MG/DL (2.5-4.9) Magnesium Level 1.8 MG/DL (1.8-2.4) Current Medications Medications (Trade) Dose Ordered Sig/Elli Route PRN Reason Start Time Stop Time Status Last Admin Dose Admin Acetaminophen (Tylenol) 650 mg Q4H PRN RECTAL Mild Pain (Pain Scale 1-3) 09/03/18 19:00 09/25/18 10:59 Albuterol/ Ipratropium (Albuterol/ Ipratropium) 3 ml Q6HRT HHN 09/03/18 19:00 09/07/18 00:59 Azithromycin 500 mg/Dextrose 275 ml @ 275 mls/hr Q24HRS IV 09/03/18 17:00 09/08/18 16:59 09/03/18 17:05 Chlorhexidine Gluconate (Gabriela-Hex 2%) 1 applic DAILY@2000 TOPIC 09/03/18 20:00 09/25/18 19:59 Dextrose (Dextrose 50%) 25 ml Q30M PRN IV Hypoglycemia 09/03/18 16:30 09/21/18 23:29 Dextrose (Dextrose 50%) 50 ml Q30M PRN IV Hypoglycemia 09/03/18 16:30 09/21/18 23:29 Guaifenesin/ Dextromethorphan (Robitussin DM Syrup) 5 ml Q6H PRN ORAL For Cough 09/03/18 20:30 09/23/18 08:29 Heparin Sodium (Porcine) (Heparin 5000 units/ml) 5,000 units EVERY 12 HOURS SUBQ 09/03/18 21:00 09/22/18 08:59 Hydrocortisone (Solu-CORTEF) 25 mg EVERY 8 HOURS IV 09/03/18 22:00 09/25/18 21:59 Insulin Aspart (NovoLOG) BEFORE MEALS AND HS SUBQ 09/03/18 16:45 09/30/18 16:44 09/03/18 17:24 Levothyroxine Sodium (Synthroid) 75 mcg DAILY IV 09/04/18 09:00 09/27/18 08:59 Lorazepam (Ativan 2mg/ml 1ml) 1 mg Q6H PRN IV For Anxiety 09/03/18 16:30 09/03/18 22:29 Magnesium Oxide (Mag-Ox 400mg) 400 mg THREE TIMES A DAY ORAL 09/03/18 18:00 10/01/18 17:59 Meropenem 1 gm/ Sodium Chloride 100 ml @ 200 mls/hr Q12HR@0600,1800 IVPB 09/03/18 18:00 09/08/18 17:59 Ondansetron HCl (Zofran) 4 mg Q4H PRN IVP Nausea & Vomiting 09/03/18 17:15 09/22/18 17:03 Pantoprazole (Protonix) 40 mg DAILY ORAL 09/04/18 09:00 09/24/18 08:59 Tramadol HCl (Ultram) 50 mg TIDPRN PRN ORAL Pain level of 3-6 09/04/18 16:00 09/06/18 15:59 Trimethoprim/ Sulfamethoxazole 22 ml/Dextrose 572 ml @ 381.333 mls/hr 0700,1500,2300 IV 09/03/18 20:00 09/10/18 19:59 Voriconazole (Vfend) 200 mg Q12HR ORAL 09/03/18 21:00 09/08/18 20:59 Treasure Vargas MD Sep 03, 2018 18:11
[2018-09-03] MEDS ORDERED: Acetaminophen 650 MG SUPP RECTAL PRN (19:00)
--- NOTE | 2018-09-03 19:17 | NUR ---
HAND-OFF: Report given to FAY Diane. Patient is stable.
--- NOTE | 2018-09-03 19:18 | NUR ---
NURSE NOTES: Bedside report received from FAY Mccrary. AOx4, able to follow commands, make needs known. RA; sating well. States he is not feeling well, no pain, VSS. library monitor showing NSR. Pt is clean and dry. RADHA PICC SL; asymptomatic. Labs OK, no orders for Ca per AM nurse. Bed locked in lowest position, side rails x3, call valle within reach, bed alarm on. Will continue to monitor and follow plan of care.
[2018-09-03] MEDS ORDERED: Guaifenesin/DM 10ml syrup ORAL PRN (20:30)
[2018-09-03] MEDS: D5W IV SCH (20:51)
[2018-09-03] MEDS: Dyna-Hex 2% Top Sol 2oz TOPIC SCH (20:51)
[2018-09-03] MEDS: TRIMETHOPRIM IV SCH (20:51)
[2018-09-03] MEDS: SULFAMETHOXAZOLE IV SCH (20:51)
[2018-09-04] VITALS: BP 140/72
[2018-09-04] MEDS: Albuterol/Ipratropium 3ml neb HHN SCH ×4 (00:54→19:29)
[2018-09-04 04:00] VITALS: BP 128/63
--- NOTE | 2018-09-04 04:45 | Progress Note ---
DATE: 09/03/2018 CARDIOLOGY PROGRESS NOTE SUBJECTIVE: The patient has improved, less shortness of breath and congestion, needs secretions down. Oxygen requirements improved. OBJECTIVE: VITAL SIGNS: Blood pressure 134/66, pulse 82, respirations 18, and afebrile. LUNGS: Coarse breath sounds. Few rhonchi. HEART: Regular rhythm and rate. Normal S1 and S2 with a fourth heart sound. ABDOMEN: Soft and nontender. EXTREMITIES: No edema. LABORATORY DATA: Potassium 3.5, BUN 31, and creatinine 1.9. Hemoglobin 8.4. Magnesium 1.8. IMPRESSION: 1. Serious condition with guarded prognosis, but overall improved. 2. Adrenal insufficiency. 3. Atypical pneumonia with pulmonary infiltrates and hypoxia. 4. Recovered shock due to sepsis and adrenal insufficiency. 5. History of melanoma. 6. Acute renal failure, recovering. 7. Dehydration and hypernatremia, corrected. PLAN: 1. Maintain hydration. 2. Encourage oral intake with protein. 3. Titrate hydrocortisone. 4. Respiratory hygiene, oxygen, and antimicrobials. 5. Transfer to step-down unit. Nathaniel Bonilla M.D. DR: ERIKA JOB#: [id number] CC:
[2018-09-04] MEDS: Hydrocortisone 100mg Inj IV SCH ×3 (05:54→22:09)
[2018-09-04 05:55] LABS: HEMATOCRIT 24.1 % (42.0-52.0); HEMOGLOBIN 8.2 G/DL (14.2-18.0); MEAN CORPUSCULAR VOLUME 88 FL (80-99); PLATELET COUNT 191 K/UL (150-450); RED BLOOD COUNT 2.75 M/UL (4.70-6.10); RED CELL DISTRIBUTION WIDTH 12.3 % (11.6-14.8); WHITE BLOOD COUNT 8.7 K/UL (4.8-10.8)
[2018-09-04] MEDS: NovoLOG Insulin Flexpen SUBQ SCH ×4 (05:56→20:37)
[2018-09-04 06:36] LABS: ALANINE AMINOTRANSFERASE 34 U/L (12-78); ALBUMIN 2.1 G/DL (3.4-5.0); ALBUMIN/GLOBULIN RATIO 0.6 (1.0-2.7); ALKALINE PHOSPHATASE 60 U/L (46-116); ANION GAP 7 mmol/L (5-15); ASPARTATE AMINO TRANSFERASE 38 U/L (15-37); BILIRUBIN,TOTAL 0.3 MG/DL (0.2-1.0); BLOOD UREA NITROGEN 29 mg/dL (7-18); CALCIUM 8.2 MG/DL (8.5-10.1); CARBON DIOXIDE 28 MMOL/L (21-32); CHLORIDE 108 MMOL/L (98-107); CREATININE 1.9 MG/DL (0.55-1.30); IRON 40 ug/dL (50-175); POTASSIUM 3.2 MMOL/L (3.5-5.1); SODIUM 143 MMOL/L (136-145); TOTAL IRON BINDING CAPACITY 157 ug/dL (250-450)
[2018-09-04 06:37] LABS: % IRON SATURATION 25 % (15-50)
--- NOTE | 2018-09-04 07:25 | NUR ---
NURSE NOTES: Received report from FAY Diane. Patient is awake in bed, A/O x4. No s/s of acute distress noted. Sinus rhythm on shelter monitor. Saturating well on room air. Right upper arm PICC line TKO, patent and intact. Bed locked in lowest position with side rails up x2. Call light left within reach. Will continue to monitor.
--- NOTE | 2018-09-04 07:30 | NUR ---
HAND-OFF: Report given to FAY Mallory.
--- NOTE | 2018-09-04 07:41 | NUR ---
NURSE NOTES: Dr. Chad MD made aware of patient's potassium 3.2 and hgb 8.2. New order received and carried out. Will continue to monitor.
[2018-09-04 08:00] VITALS: BP 137/78
[2018-09-04] MEDS: SULFAMETHOXAZOLE IV SCH ×3 (08:49→23:25)
[2018-09-04] MEDS: TRIMETHOPRIM IV SCH ×3 (08:49→23:25)
[2018-09-04] MEDS: D5W IV SCH ×3 (08:49→23:25)
--- NOTE | 2018-09-04 09:29 | General Progress Note ---
Assessment/Plan Problem List: (1) Sepsis ICD Codes: A41.9 - Sepsis, unspecified organism SNOMED: 06290373 (2) Diabetes ICD Codes: E11.9 - Type 2 diabetes mellitus without complications SNOMED: 45160298 (3) Adrenal insufficiency ICD Codes: E27.40 - Unspecified adrenocortical insufficiency SNOMED: 10484135, 095883616 (4) Abdominal distension (gaseous) ICD Codes: R14.0 - Abdominal distension (gaseous) SNOMED: 842231722 (5) Healthcare-associated pneumonia ICD Codes: J18.9 - Pneumonia, unspecified organism SNOMED: 350891800 (6) Anemia ICD Codes: D64.9 - Anemia, unspecified SNOMED: 986422779 Status: stable Assessment/Plan PLAN: 1. Maintain hydration. 2. Encourage oral intake with protein. will upgrade diet 3. Titrate hydrocortisone. 4. Respiratory hygiene, oxygen, and antimicrobials. 5. Transfer to step-down unit. 6. monitor CXR/IV abx Subjective ROS Limited/Unobtainable: No Constitutional: Reports: malaise, weakness HEENT: Reports: no symptoms Cardiovascular: Reports: no symptoms Respiratory: Reports: cough Gastrointestinal/Abdominal: Reports: no symptoms Genitourinary: Reports: no symptoms Neurologic/Psychiatric: Reports: no symptoms Endocrine: Reports: no symptoms Hematologic/Lymphatic: Reports: no symptoms Allergies: Coded Allergies: No Known Allergies (Unverified , 08/22/18) All Systems: reviewed and negative except above Subjective no new complaints. unhappy with diet. demanding diet be changed to regular. wants coffee. Objective Last 24 Hour Vital Signs Date Time Temp Pulse Resp B/P (MAP) Pulse Ox O2 Delivery O2 Flow Rate FiO2 09/04/18 08:09 74 18 Room Air 09/04/18 08:06 77 18 92 Room Air 09/04/18 08:05 Room Air 09/04/18 08:04 92 Room Air 21 09/04/18 04:00 80 09/04/18 04:00 98.0 80 20 128/63 (84) 92 09/04/18 04:00 Room Air Room Air Room Air 09/04/18 01:01 82 18 98 Room Air 21 09/04/18 00:54 80 16 93 Room Air 21 09/04/18 00:00 83 09/04/18 00:00 Room Air Room Air 09/04/18 00:00 97.5 80 20 140/72 (94) 96 09/03/18 20:00 85 09/03/18 20:00 97.9 87 20 130/70 (90) 96 09/03/18 20:00 Room Air Room Air 09/03/18 19:33 72 18 98 Room Air 21 09/03/18 19:24 Room Air 21 09/03/18 19:24 96 Room Air 21 09/03/18 19:24 76 16 96 Room Air 21 09/03/18 16:00 97.7 81 20 132/73 (92) 94 09/03/18 16:00 Room Air Room Air 09/03/18 15:56 80 09/03/18 15:00 81 18 130/62 (84) 99 09/03/18 14:20 74 18 98 Room Air 21 09/03/18 14:10 79 16 100 Room Air 21 09/03/18 14:00 79 19 130/72 (91) 98 09/03/18 13:00 77 17 125/68 (87) 98 09/03/18 12:00 Room Air Room Air 09/03/18 12:00 98.0 77 17 125/69 (87) 99 09/03/18 12:00 79 09/03/18 11:00 80 20 135/67 (89) 95 09/03/18 10:00 82 18 134/66 (88) 96 Intake and Output 09/03/18 09/04/18 19:00 07:00 Intake Total 1147.000 ml 832.000 ml Output Total 250 ml Balance 897.000 ml 832.000 ml Intake Oral 200 ml 240 ml IV Total 947.000 ml 592.000 ml Output Urine Total 250 ml # Voids 2 # Bowel Movements 1 1 Laboratory Tests 09/04/18 03:00: White Blood Count 8.7, Red Blood Count 2.75L, Hemoglobin 8.2L, Hematocrit 24.1L , Mean Corpuscular Volume 88, Mean Corpuscular Hemoglobin 29.8, Mean Corpuscular Hemoglobin Concent 34.0, Red Cell Distribution Width 12.3, Platelet Count 191, Mean Platelet Volume 6.4L, Neutrophils (%) (Auto) , Lymphocytes (%) ( Auto) , Monocytes (%) (Auto) , Eosinophils (%) (Auto) , Basophils (%) (Auto) , Differential Total Cells Counted 100, Neutrophils % (Manual) 81H, Lymphocytes % (Manual) 10L, Monocytes % (Manual) 6, Eosinophils % (Manual) 0, Basophils % ( Manual) 0, Myelocytes % 2H, Band Neutrophils 1, Platelet Estimate Adequate, Platelet Morphology Normal, Hypochromasia 1+, Sodium Level 143, Potassium Level 3.2L, Chloride Level 108H, Carbon Dioxide Level 28, Anion Gap 7, Blood Urea Nitrogen 29H, Creatinine 1.9H, Estimat Glomerular Filtration Rate , Glucose Level 113H, Calcium Level 8.2L, Iron Level 40L, Total Iron Binding Capacity 157L , Percent Iron Saturation 25, Unsaturated Iron Binding 117, Total Bilirubin 0.3 , Aspartate Amino Transf (AST/SGOT) 38H, Alanine Aminotransferase (ALT/SGPT) 34 , Alkaline Phosphatase 60, Total Protein 5.7L, Albumin 2.1L, Globulin 3.6, Albumin/Globulin Ratio 0.6L Height (Feet): 5 Height (Inches): 7.00 Weight (Pounds): 160 General Appearance: WD/WN, alert Neck: supple Cardiovascular: regular rhythm Respiratory/Chest: lungs clear Abdomen: normal bowel sounds, non tender, soft, no organomegaly Edema: no edema noted Arm (L), no edema noted Arm (R), no edema noted Leg (L), no edema noted Leg (R), no edema noted Pedal (L), no edema noted Pedal (R), no edema noted Generalized Dennys Castro MD Sep 04, 2018 09:29
[2018-09-04] MEDS: Magnesium Oxide 400mg tab ORAL SCH ×3 (10:52→17:45)
[2018-09-04] MEDS: Heparin 5000 units/ml inj SUBQ SCH ×2 (10:54→20:39)
--- NOTE | 2018-09-04 11:25 | Nephrology Progress Note ---
Assessment/Plan Problem List: (1) Respiratory failure (2) ROSA (acute kidney injury) (3) Sepsis (4) Adrenal insufficiency (5) Healthcare-associated pneumonia Plan cxr represent pneumonia rather than chf, will stop lasix for now, replace K, now off pressors, hydrate can dc iv now , Lm low likely prerenal, avoid over hydration dc reyes , voiding trial, lab better Subjective Constitutional: Reports: weakness HEENT: Reports: no symptoms Genitourinary: Reports: no symptoms Neurologic/Psychiatric: Reports: no symptoms Objective Objective Last 24 Hour Vital Signs Date Time Temp Pulse Resp B/P (MAP) Pulse Ox O2 Delivery O2 Flow Rate FiO2 09/04/18 08:16 78 16 99 Room Air 21 09/04/18 08:09 74 18 Room Air 21 09/04/18 08:06 77 18 92 Room Air 21 09/04/18 08:05 Room Air 09/04/18 08:04 92 Room Air 21 09/04/18 08:00 98.2 82 19 137/78 (97) 93 09/04/18 07:46 71 09/04/18 04:00 80 09/04/18 04:00 98.0 80 20 128/63 (84) 92 09/04/18 04:00 Room Air Room Air Room Air 09/04/18 01:01 82 18 98 Room Air 21 09/04/18 00:54 80 16 93 Room Air 21 09/04/18 00:00 83 09/04/18 00:00 Room Air Room Air 09/04/18 00:00 97.5 80 20 140/72 (94) 96 09/03/18 20:00 85 09/03/18 20:00 97.9 87 20 130/70 (90) 96 09/03/18 20:00 Room Air Room Air 09/03/18 19:33 72 18 98 Room Air 21 09/03/18 19:24 Room Air 21 09/03/18 19:24 96 Room Air 21 09/03/18 19:24 76 16 96 Room Air 21 09/03/18 16:00 97.7 81 20 132/73 (92) 94 09/03/18 16:00 Room Air Room Air 09/03/18 15:56 80 09/03/18 15:00 81 18 130/62 (84) 99 12/29/18 14:20 74 18 98 Room Air 21 09/03/18 14:10 79 16 100 Room Air 21 09/03/18 14:00 79 19 130/72 (91) 98 09/03/18 13:00 77 17 125/68 (87) 98 09/03/18 12:00 Room Air Room Air 09/03/18 12:00 98.0 77 17 125/69 (87) 99 09/03/18 12:00 79 Intake and Output 09/03/18 09/04/18 18:59 06:59 Intake Total 1197.000 ml 832.000 ml Output Total 250 ml Balance 947.000 ml 832.000 ml Intake Oral 200 ml 240 ml IV Total 997.000 ml 592.000 ml Output Urine Total 250 ml # Voids 2 # Bowel Movements 1 1 Laboratory Tests 09/04/18 03:00: White Blood Count 8.7, Red Blood Count 2.75L, Hemoglobin 8.2L, Hematocrit 24.1L , Mean Corpuscular Volume 88, Mean Corpuscular Hemoglobin 29.8, Mean Corpuscular Hemoglobin Concent 34.0, Red Cell Distribution Width 12.3, Platelet Count 191, Mean Platelet Volume 6.4L, Neutrophils (%) (Auto) , Lymphocytes (%) ( Auto) , Monocytes (%) (Auto) , Eosinophils (%) (Auto) , Basophils (%) (Auto) , Differential Total Cells Counted 100, Neutrophils % (Manual) 81H, Lymphocytes % (Manual) 10L, Monocytes % (Manual) 6, Eosinophils % (Manual) 0, Basophils % ( Manual) 0, Myelocytes % 2H, Band Neutrophils 1, Platelet Estimate Adequate, Platelet Morphology Normal, Hypochromasia 1+, Sodium Level 143, Potassium Level 3.2L, Chloride Level 108H, Carbon Dioxide Level 28, Anion Gap 7, Blood Urea Nitrogen 29H, Creatinine 1.9H, Estimat Glomerular Filtration Rate , Glucose Level 113H, Calcium Level 8.2L, Iron Level 40L, Total Iron Binding Capacity 157L , Percent Iron Saturation 25, Unsaturated Iron Binding 117, Total Bilirubin 0.3 , Aspartate Amino Transf (AST/SGOT) 38H, Alanine Aminotransferase (ALT/SGPT) 34 , Alkaline Phosphatase 60, Total Protein 5.7L, Albumin 2.1L, Globulin 3.6, Albumin/Globulin Ratio 0.6L Height (Feet): 5 Height (Inches): 7.00 Weight (Pounds): 160 General Appearance: no apparent distress, alert EENT: normal ENT inspection Neck: non-tender, normal alignment Cardiovascular: normal rate, regular rhythm Respiratory/Chest: lungs clear Abdomen: non tender, soft 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
[2018-09-04 12:00] VITALS: BP 151/68
--- NOTE | 2018-09-04 13:12 | Pulmonolgy Critical Care Note ---
Critical Care - Asmt/Plan Assessment/Plan: Pulmonary Progress Note Assessment/Plan IMPRESSION: 1. Malignant melanoma. 2. Runnels's disease. 3. Improving oxygenation 4. S/p extubation 5. Pneumonia HISTORY OF PRESENT ILLNESS: The patient was admitted sepsis of unclear etiology. His initial chest x-ray was negative, subsequent infiltrates noted. He had a past history of stage IV melanoma, which has been treated with immunotherapy. Following admission, he was treated with antibiotics and other medications, but his condition declined and three days ago, he was intubated for respiratory failure and transferred to intensive care. He was found to have probable pneumonia and possible congestive heart failure. PAST MEDICAL HISTORY: Includes adrenal insufficiency, malignant melanoma stage IV undergoing immunotherapy, hypertension, cholecystectomy, diabetes, hypothyroid, and hernia repair. ALLERGIES: None. MEDICATIONS: Reviewed. PHYSICAL EXAMINATION: VSS noted GENERAL: The patient is alert and nods his head. He tries to speak, but has an oral endotracheal tube in place. The patient appears to have significant muscle wasting. VITAL SIGNS: Stable without pressors or sedatives. HEENT: Head, normocephalic. Mouth, oral endotracheal tube in place on ventilatory support. NECK: No jugular vein distention. CHEST: Clear. CARDIAC: Rhythm regular. ABDOMEN: Soft and nontender. EXTREMITIES: No clubbing, cyanosis, or edema. DISCUSSION: Continue present care CXR better; has improving FiO2 requirements; now on low flow nasal o2 Performed bedside endotracheal lavage yesterday; no complications No anesthesia given Specimen sent for Gm stain as well as PCP DFA Subjective Constitutional: Reports: no symptoms HEENT: Repors: no symptoms Respiratory: Reports: no symptoms Cardiovascular: Reports: no symptoms Gastrointestinal/Abdominal: Reports: no symptoms Allergies: Coded Allergies: No Known Allergies (Unverified , 08/22/18) Objective Microbiology Date/Time Source Procedure Growth Status 09/01/18 19:00 Sputum Induced Gram Stain Pending Resulted 09/01/18 19:00 Sputum Induced Sputum Culture - Preliminary Resulted 08/31/18 13:10 Sputum Induced Gram Stain - Final Complete 08/31/18 13:10 Sputum Culture - Final Cyndee Albicans Complete 08/31/18 18:05 Indwelling Cath Urine Culture - Preliminary NO GROWTH AFTER 24 HOURS Resulted Laboratory Tests Noted CXR: Procedure: XRAY Chest 1v EXAM: XR Chest, 1 View CLINICAL HISTORY: INFECT TECHNIQUE: Frontal view of the chest. COMPARISON: No relevant prior studies available. FINDINGS: Lungs: Interstitial infiltration, left greater than right. Pleural space: Probable small left pleural effusion. No pneumothorax. Heart: Unremarkable. No cardiomegaly. Mediastinum: Unremarkable. Bones/joints: No acute fracture. Vasculature: Prominent aortic knob. Tubes, lines and devices: Right PICC line in the SVC. Other findings: Surgical changes left side of the neck. IMPRESSION: Interstitial infiltration, left greater than right. Critical Care - Objective Last 24 Hour Vital Signs Date Time Temp Pulse Resp B/P (MAP) Pulse Ox O2 Delivery O2 Flow Rate FiO2 09/04/18 12:47 76 18 99 Room Air 21 09/04/18 12:37 76 18 94 Room Air 21 09/04/18 12:00 Room Air Room Air Room Air 09/04/18 08:16 78 16 99 Room Air 21 09/04/18 08:09 74 18 Room Air 21 09/04/18 08:06 77 18 92 Room Air 21 09/04/18 08:05 Room Air 09/04/18 08:04 92 Room Air 21 09/04/18 08:00 98.2 82 19 137/78 (97) 93 09/04/18 08:00 Room Air Room Air Room Air 09/04/18 07:46 71 09/04/18 04:00 80 09/04/18 04:00 98.0 80 20 128/63 (84) 92 09/04/18 04:00 Room Air Room Air Room Air 09/04/18 01:01 82 18 98 Room Air 21 09/04/18 00:54 80 16 93 Room Air 21 09/04/18 00:00 83 09/04/18 00:00 Room Air Room Air 09/04/18 00:00 97.5 80 20 140/72 (94) 96 09/03/18 20:00 85 09/03/18 20:00 97.9 87 20 130/70 (90) 96 09/03/18 20:00 Room Air Room Air 09/03/18 19:33 72 18 98 Room Air 21 09/03/18 19:24 Room Air 21 09/03/18 19:24 96 Room Air 21 09/03/18 19:24 76 16 96 Room Air 21 09/03/18 16:00 97.7 81 20 132/73 (92) 94 09/03/18 16:00 Room Air Room Air 09/03/18 15:56 80 09/03/18 15:00 81 18 130/62 (84) 99 09/03/18 14:20 74 18 98 Room Air 21 09/03/18 14:10 79 16 100 Room Air 21 09/03/18 14:00 79 19 130/72 (91) 98 Micro: Microbiology Date/Time Source Procedure Growth Status 09/01/18 19:00 Sputum Induced Gram Stain - Final Complete 09/01/18 19:00 Sputum Induced Sputum Culture - Final NO GROWTH AFTER 48 HOURS Complete Accucheck: 219 Critical Care - Subjective ROS Limited/Unobtainable: No FI02: 21 Vent Support Breath Rate: 16 Vent Support Mode: IMV/SIMV Vent Tidal Volume: 600 Sputum Amount: None PEEP: 5.0 PIP: 18 Tube Feeding Amount: 10 I&O: Intake and Output 09/03/18 09/04/18 19:00 07:00 Intake Total 1147.000 ml 832.000 ml Output Total 250 ml Balance 897.000 ml 832.000 ml Intake Oral 200 ml 240 ml IV Total 947.000 ml 592.000 ml Output Urine Total 250 ml # Voids 2 # Bowel Movements 1 1 ET-Tube: 8.0 ET Position: 26 Nathaniel Villegas MD Sep 04, 2018 13:12
[2018-09-04 15:03] LABS: APPEARANCE,URINE CLEAR; BILIRUBIN, URINE NEGATIVE (NEGATIVE); COLOR,URINE PALE YELLOW; GLUCOSE, URINE (UA) NEGATIVE (NEGATIVE); KETONES,URINE NEGATIVE (NEGATIVE); LEUKOCYTE ESTERASE ,URINE NEGATIVE (NEGATIVE); NITRITE,URINE NEGATIVE (NEGATIVE); PH,URINE 8 (4.5-8.0); PROTEIN,URINE 2+ (NEGATIVE); UROBILINOGEN,URINE NORMAL MG/DL (0.0-1.0)
[2018-09-04 16:00] VITALS: BP 131/68
[2018-09-04] MEDS ORDERED: traMADol 50mg tab ORAL PRN (16:00)
[2018-09-04] MEDS ORDERED: NS 275ml ONE (16:21)
--- NOTE | 2018-09-04 17:24 | General Progress Note ---
Assessment/Plan Assessment/Plan Assessment - abnormal LFT - Melanoma - s/p cholecystectomy - Urolithiasis - Anemia, gastrocult (+) - Pneumonia - Azotemia - diarrhea Recommendations - Abx per ID - check C Diff - cardiology / pulmonary follow up - po diet as tolerated - follow labs and exam - EGD/colon at a later date once stable Subjective Allergies: Coded Allergies: No Known Allergies (Unverified , 08/22/18) Subjective eating OK some loose stools noted d/w RN Objective Last 24 Hour Vital Signs Date Time Temp Pulse Resp B/P (MAP) Pulse Ox O2 Delivery O2 Flow Rate FiO2 09/04/18 12:47 76 18 99 Room Air 21 09/04/18 12:37 76 18 94 Room Air 21 09/04/18 12:00 98.4 71 20 151/68 (95) 94 09/04/18 12:00 Room Air Room Air Room Air 09/04/18 11:49 75 09/04/18 08:16 78 16 99 Room Air 21 09/04/18 08:09 74 18 Room Air 21 09/04/18 08:06 77 18 92 Room Air 21 09/04/18 08:05 Room Air 09/04/18 08:04 92 Room Air 21 09/04/18 08:00 98.2 82 19 137/78 (97) 93 09/04/18 08:00 Room Air Room Air Room Air 09/04/18 07:46 71 09/04/18 04:00 80 09/04/18 04:00 98.0 80 20 128/63 (84) 92 09/04/18 04:00 Room Air Room Air Room Air 09/04/18 01:01 82 18 98 Room Air 21 09/04/18 00:54 80 16 93 Room Air 21 09/04/18 00:00 83 09/04/18 00:00 Room Air Room Air 09/04/18 00:00 97.5 80 20 140/72 (94) 96 09/03/18 20:00 85 09/03/18 20:00 97.9 87 20 130/70 (90) 96 09/03/18 20:00 Room Air Room Air 09/03/18 19:33 72 18 98 Room Air 21 09/03/18 19:24 Room Air 21 09/03/18 19:24 96 Room Air 21 09/03/18 19:24 76 16 96 Room Air 21 Intake and Output 09/03/18 09/04/18 19:00 07:00 Intake Total 1147.000 ml 832.000 ml Output Total 250 ml Balance 897.000 ml 832.000 ml Intake Oral 200 ml 240 ml IV Total 947.000 ml 592.000 ml Output Urine Total 250 ml # Voids 2 # Bowel Movements 1 1 Laboratory Tests 09/04/18 03:00: White Blood Count 8.7, Red Blood Count 2.75L, Hemoglobin 8.2L, Hematocrit 24.1L , Mean Corpuscular Volume 88, Mean Corpuscular Hemoglobin 29.8, Mean Corpuscular Hemoglobin Concent 34.0, Red Cell Distribution Width 12.3, Platelet Count 191, Mean Platelet Volume 6.4L, Neutrophils (%) (Auto) , Lymphocytes (%) ( Auto) , Monocytes (%) (Auto) , Eosinophils (%) (Auto) , Basophils (%) (Auto) , Differential Total Cells Counted 100, Neutrophils % (Manual) 81H, Lymphocytes % (Manual) 10L, Monocytes % (Manual) 6, Eosinophils % (Manual) 0, Basophils % ( Manual) 0, Myelocytes % 2H, Band Neutrophils 1, Platelet Estimate Adequate, Platelet Morphology Normal, Hypochromasia 1+, Sodium Level 143, Potassium Level 3.2L, Chloride Level 108H, Carbon Dioxide Level 28, Anion Gap 7, Blood Urea Nitrogen 29H, Creatinine 1.9H, Estimat Glomerular Filtration Rate , Glucose Level 113H, Calcium Level 8.2L, Iron Level 40L, Total Iron Binding Capacity 157L , Percent Iron Saturation 25, Unsaturated Iron Binding 117, Total Bilirubin 0.3 , Aspartate Amino Transf (AST/SGOT) 38H, Alanine Aminotransferase (ALT/SGPT) 34 , Alkaline Phosphatase 60, Total Protein 5.7L, Albumin 2.1L, Globulin 3.6, Albumin/Globulin Ratio 0.6L 09/04/18 14:15: Urine Color Pale yellow, Urine Appearance Clear, Urine pH 8, Urine Specific [place] 1.010, Urine Protein 2+H, Urine Glucose (UA) Negative, Urine Ketones Negative, Urine Blood 2+H, Urine Nitrite Negative, Urine Bilirubin Negative, Urine Urobilinogen Normal, Urine Leukocyte Esterase Negative, Urine RBC 2-4H, Urine WBC 0, Urine Squamous Epithelial Cells Occasional, Urine Bacteria Few Height (Feet): 5 Height (Inches): 7.00 Weight (Pounds): 160 Objective Thin WM NAD NCAT supple Coars BS RR abd soft no edema non focal Francisco Delgadillo MD Sep 04, 2018 17:24
--- NOTE | 2018-09-04 17:44 | General Surgery Progress Note ---
General Surgery-Progress Note Subjective Symptoms: improved, pain absent, tolerating diet, passing flatus Additional Comments doing much better. downgraded from ICU Objective Last 24 Hour Vital Signs Date Time Temp Pulse Resp B/P (MAP) Pulse Ox O2 Delivery O2 Flow Rate FiO2 09/04/18 16:00 98.0 80 22 131/68 (89) 93 09/04/18 16:00 Room Air Room Air Room Air 09/04/18 15:34 80 09/04/18 12:47 76 18 99 Room Air 21 09/04/18 12:37 76 18 94 Room Air 21 09/04/18 12:00 98.4 71 20 151/68 (95) 94 09/04/18 12:00 Room Air Room Air Room Air 09/04/18 11:49 75 09/04/18 08:16 78 16 99 Room Air 21 09/04/18 08:09 74 18 Room Air 21 09/04/18 08:06 77 18 92 Room Air 21 09/04/18 08:05 Room Air 09/04/18 08:04 92 Room Air 21 09/04/18 08:00 98.2 82 19 137/78 (97) 93 09/04/18 08:00 Room Air Room Air Room Air 09/04/18 07:46 71 09/04/18 04:00 80 09/04/18 04:00 98.0 80 20 128/63 (84) 92 09/04/18 04:00 Room Air Room Air Room Air 09/04/18 01:01 82 18 98 Room Air 21 09/04/18 00:54 80 16 93 Room Air 21 09/04/18 00:00 83 09/04/18 00:00 Room Air Room Air 09/04/18 00:00 97.5 80 20 140/72 (94) 96 09/03/18 20:00 85 09/03/18 20:00 97.9 87 20 130/70 (90) 96 09/03/18 20:00 Room Air Room Air 09/03/18 19:33 72 18 98 Room Air 21 09/03/18 19:24 Room Air 21 09/03/18 19:24 96 Room Air 21 09/03/18 19:24 76 16 96 Room Air 21 I&O Intake and Output 09/03/18 09/04/18 19:00 07:00 Intake Total 1147.000 ml 832.000 ml Output Total 250 ml Balance 897.000 ml 832.000 ml Intake Oral 200 ml 240 ml IV Total 947.000 ml 592.000 ml Output Urine Total 250 ml # Voids 2 # Bowel Movements 1 1 Drains: none Cardiovascular: RSR Respiratory: clear, decreased breath sounds Abdomen: soft, flat, non-tender, present bowel sounds Extremities: no cyanosis Laboratory Tests Test 09/04/18 03:00 09/04/18 14:15 White Blood Count 8.7 K/UL (4.8-10.8) Red Blood Count 2.75 M/UL (4.70-6.10) L Hemoglobin 8.2 G/DL (14.2-18.0) L Hematocrit 24.1 % (42.0-52.0) L Mean Corpuscular Volume 88 FL (80-99) Mean Corpuscular Hemoglobin 29.8 PG (27.0-31.0) Mean Corpuscular Hemoglobin Concent 34.0 G/DL (32.0-36.0) Red Cell Distribution Width 12.3 % (11.6-14.8) Platelet Count 191 K/UL (150-450) Mean Platelet Volume 6.4 FL (6.5-10.1) L Neutrophils (%) (Auto) % (45.0-75.0) Lymphocytes (%) (Auto) % (20.0-45.0) Monocytes (%) (Auto) % (1.0-10.0) Eosinophils (%) (Auto) % (0.0-3.0) Basophils (%) (Auto) % (0.0-2.0) Differential Total Cells Counted 100 Neutrophils % (Manual) 81 % (45-75) H Lymphocytes % (Manual) 10 % (20-45) L Monocytes % (Manual) 6 % (1-10) Eosinophils % (Manual) 0 % (0-3) Basophils % (Manual) 0 % (0-2) Myelocytes % 2 % (0-0) H Band Neutrophils 1 % (0-8) Platelet Estimate Adequate Platelet Morphology Normal Hypochromasia 1+ Sodium Level 143 MMOL/L (136-145) Potassium Level 3.2 MMOL/L (3.5-5.1) L Chloride Level 108 MMOL/L (98-107) H Carbon Dioxide Level 28 MMOL/L (21-32) Anion Gap 7 mmol/L (5-15) Blood Urea Nitrogen 29 mg/dL (7-18) H Creatinine 1.9 MG/DL (0.55-1.30) H Estimat Glomerular Filtration Rate mL/min (>60) Glucose Level 113 MG/DL (74-106) H Calcium Level 8.2 MG/DL (8.5-10.1) L Iron Level 40 ug/dL (50-175) L Total Iron Binding Capacity 157 ug/dL (250-450) L Percent Iron Saturation 25 % (15-50) Unsaturated Iron Binding 117 ug/dL (112-346) Total Bilirubin 0.3 MG/DL (0.2-1.0) Aspartate Amino Transf (AST/SGOT) 38 U/L (15-37) H Alanine Aminotransferase (ALT/SGPT) 34 U/L (12-78) Alkaline Phosphatase 60 U/L (46-116) Total Protein 5.7 G/DL (6.4-8.2) L Albumin 2.1 G/DL (3.4-5.0) L Globulin 3.6 g/dL Albumin/Globulin Ratio 0.6 (1.0-2.7) L Urine Color Pale yellow Urine Appearance Clear Urine pH 8 (4.5-8.0) Urine Specific [place] 1.010 (1.005-1.035) Urine Protein 2+ (NEGATIVE) H Urine Glucose (UA) Negative (NEGATIVE) Urine Ketones Negative (NEGATIVE) Urine Blood 2+ (NEGATIVE) H Urine Nitrite Negative (NEGATIVE) Urine Bilirubin Negative (NEGATIVE) Urine Urobilinogen Normal MG/DL (0.0-1.0) Urine Leukocyte Esterase Negative (NEGATIVE) Urine RBC 2-4 /HPF (0 - 0) H Urine WBC 0 /HPF (0 - 0) Urine Squamous Epithelial Cells Occasional /LPF Urine Bacteria Few /HPF (NONE) Plan Problems: (1) Sepsis (2) Abdominal distension (gaseous) Assessment & Plan: Abdominal distention / discomfort. no n/v/f/c. +flatus. feels bloated. exam with mild distention/non tender CT - Mildly fluid-filled small bowel loops, nonspecific, No acute process otherwise, Postcholecystectomy changes. What are probably hepatic cysts adjacent to the gallbladder fossa mimics fluid in the gallbladder fossa on the axial views, but appear to be cysts on the coronal images. Nonetheless, biloma or other pathologic collection not completely excludable Multiple nonobstructive left renal calculi Sarmiento catheter Bilateral basilar pulmonary interstitial prominence, nonspecific Scoliosis and spondylosis KUB - Nonspecific prominent but not frankly dilated gas-filled small bowel loops , decreased from previous day's exam Satisfactory position right groin central venous catheter worsening respiratory status requiring intubation abdominal exam unchanged KUB okay no signs of obstruction labs improved. gas okay recovering -no acute surgical intervention planned -Rx as written -diet as tolerated -activity as tolerated -will follow clinically with exams thank you for allowing me to participate in patients care David Daley Sep 04, 2018 17:44
--- NOTE | 2018-09-04 18:10 | NUR ---
CASE MANAGEMENT:REVIEW SI: RESPIRATORY FAILURE. PNA T 98 HR 80 RR 22 B/P 131/68 SAST 93% ON RA K 3.2 CL 108 BUN 29 CR 1.9 GLU 113 CA 8.2 AST 38 IS:IV BACTRIM Q12H IV AZACTAM Q24H IV SOLU CORTEF Q8HRS IV SYNTHROID QD DUONEB HHN Q6HRS RTC IVF@50 mL/HR : OLMAN STATUS
--- NOTE | 2018-09-04 19:00 | NUR ---
HAND-OFF: Report given to Brenda Mallory RN.
--- NOTE | 2018-09-04 19:30 | NUR ---
NURSE NOTES: Bedside report received from FAY Watkins. AOx4, able to follow commands, make needs known. RA; sating well. VSS. reservations and ticketing agent showing NSR. Pt is clean and dry. RADHA PICC SL; asymptomatic. Labs noted, AM RN carried out. Bed locked in lowest position, side rails x3, call valle within reach, bed alarm on. Will continue to monitor and follow plan of care.
[2018-09-04 20:00] VITALS: BP 140/75
[2018-09-04] MEDS: Dyna-Hex 2% Top Sol 2oz TOPIC SCH (20:34)
--- NOTE | 2018-09-04 23:00 | NUR ---
HAND-OFF: Report given to FAY Gage.
[2018-09-05] VITALS: BP 130/67
[2018-09-05] MEDS: Albuterol/Ipratropium 3ml neb HHN SCH ×4 (01:19→19:12)
[2018-09-05 04:00] VITALS: BP 136/76
[2018-09-05] MEDS: NovoLOG Insulin Flexpen SUBQ SCH ×4 (05:36→20:23)
[2018-09-05] MEDS: Hydrocortisone 100mg Inj IV SCH ×2 (05:37→14:00)
[2018-09-05 06:23] LABS: HEMATOCRIT 26.6 % (42.0-52.0); HEMOGLOBIN 8.9 G/DL (14.2-18.0); MEAN CORPUSCULAR VOLUME 89 FL (80-99); PLATELET COUNT 253 K/UL (150-450); RED BLOOD COUNT 2.99 M/UL (4.70-6.10); RED CELL DISTRIBUTION WIDTH 12.6 % (11.6-14.8); WHITE BLOOD COUNT 10.6 K/UL (4.8-10.8)
[2018-09-05 07:08] LABS: ALANINE AMINOTRANSFERASE 39 U/L (12-78); ALBUMIN 2.3 G/DL (3.4-5.0); ALBUMIN/GLOBULIN RATIO 0.6 (1.0-2.7); ALKALINE PHOSPHATASE 67 U/L (46-116); ANION GAP 10 mmol/L (5-15); ASPARTATE AMINO TRANSFERASE 42 U/L (15-37); BILIRUBIN,TOTAL 0.3 MG/DL (0.2-1.0); BLOOD UREA NITROGEN 30 mg/dL (7-18); CALCIUM 8.2 MG/DL (8.5-10.1); CARBON DIOXIDE 25 MMOL/L (21-32); CHLORIDE 106 MMOL/L (98-107); POTASSIUM 3.7 MMOL/L (3.5-5.1); SODIUM 141 MMOL/L (136-145)
--- NOTE | 2018-09-05 07:20 | NUR ---
NURSE NOTES: Received report from Yvrose Obando RN. Patient is awake in bed, eating breakfast. Alert and oriented x4. No s/s of acute distress noted. Sinus rhythm on conveyor monitor. Saturating well on room air. Right upper arm PICC line TKO, patent and intact. Bed locked in lowest position with side rails up x2. Call light left within reach. Will continue to monitor. Addendum: 09/05/18 at 0749 by ADALIGSA HYLTON RN CORRECTION -- Report received from FAY Gage -- NOT Yvrose Obando RN.
--- NOTE | 2018-09-05 07:25 | NUR ---
HAND-OFF: Report given to FAY Watkins.
[2018-09-05 08:00] VITALS: BP 139/73
[2018-09-05] MEDS: SULFAMETHOXAZOLE IV SCH ×3 (08:15→22:59)
[2018-09-05] MEDS: D5W IV SCH ×3 (08:15→22:59)
[2018-09-05] MEDS: TRIMETHOPRIM IV SCH ×3 (08:15→22:59)
--- NOTE | 2018-09-05 08:42 | Nephrology Progress Note ---
Assessment/Plan Problem List: (1) Respiratory failure (2) ROSA (acute kidney injury) (3) Sepsis (4) Adrenal insufficiency (5) Healthcare-associated pneumonia Plan cxr represent pneumonia rather than chf, will stop lasix for now, replace K, now off pressors, hydrate can dc iv now , Lm low likely prerenal, avoid over hydration dc reyes , voiding trial, lab better Subjective Constitutional: Reports: weakness HEENT: Reports: no symptoms Genitourinary: Reports: no symptoms Neurologic/Psychiatric: Reports: no symptoms Objective Objective Last 24 Hour Vital Signs Date Time Temp Pulse Resp B/P (MAP) Pulse Ox O2 Delivery O2 Flow Rate FiO2 09/05/18 08:00 97.9 63 21 139/73 (95) 98 09/05/18 08:00 Room Air Room Air Room Air 09/05/18 07:24 Room Air 21 09/05/18 07:24 98 Room Air 21 09/05/18 07:10 Room Air 21 09/05/18 07:10 Room Air 21 09/05/18 04:00 Room Air Room Air Room Air 09/05/18 04:00 97.9 76 18 136/76 (96) 96 09/05/18 03:26 80 09/05/18 01:27 77 16 98 Room Air 21 09/05/18 01:19 73 14 97 Room Air 21 09/05/18 00:00 97.5 72 20 130/67 (88) 95 09/05/18 00:00 Room Air Room Air Room Air 09/04/18 23:24 75 09/04/18 20:00 Room Air Room Air Room Air 09/04/18 20:00 98.2 75 20 140/75 (96) 93 09/04/18 19:38 80 18 99 Room Air 21 09/04/18 19:36 Room Air 21 09/04/18 19:29 72 16 100 Room Air 21 09/04/18 19:29 76 09/04/18 19:29 100 Room Air 21 09/04/18 16:00 98.0 80 22 131/68 (89) 93 09/04/18 16:00 Room Air Room Air Room Air 09/04/18 15:34 80 09/04/18 12:47 76 18 99 Room Air 21 09/04/18 12:37 76 18 94 Room Air 21 09/04/18 12:00 98.4 71 20 151/68 (95) 94 09/04/18 12:00 Room Air Room Air Room Air 09/04/18 11:49 75 Intake and Output 09/04/18 09/05/18 18:59 06:59 Intake Total 1444.000 ml 912 ml Output Total 300 ml 1100 ml Balance 1144.000 ml -188 ml Intake Oral 200 ml 240 ml IV Total 1244.000 ml 672 ml Output Urine Total 300 ml 1100 ml # Voids 4 # Bowel Movements 6 2 Laboratory Tests 09/04/18 14:15: Urine Color Pale yellow, Urine Appearance Clear, Urine pH 8, Urine Specific [place] 1.010, Urine Protein 2+H, Urine Glucose (UA) Negative, Urine Ketones Negative, Urine Blood 2+H, Urine Nitrite Negative, Urine Bilirubin Negative, Urine Urobilinogen Normal, Urine Leukocyte Esterase Negative, Urine RBC 2-4H, Urine WBC 0, Urine Squamous Epithelial Cells Occasional, Urine Bacteria Few 09/05/18 05:00: White Blood Count 10.6, Red Blood Count 2.99L, Hemoglobin 8.9L, Hematocrit 26.6L , Mean Corpuscular Volume 89, Mean Corpuscular Hemoglobin 29.9, Mean Corpuscular Hemoglobin Concent 33.6, Red Cell Distribution Width 12.6, Platelet Count 253, Mean Platelet Volume 7.0, Neutrophils (%) (Auto) , Lymphocytes (%) ( Auto) , Monocytes (%) (Auto) , Eosinophils (%) (Auto) , Basophils (%) (Auto) , Sodium Level 141, Potassium Level 3.7, Chloride Level 106, Carbon Dioxide Level 25, Anion Gap 10, Blood Urea Nitrogen 30H, Creatinine 2.0H, Estimat Glomerular Filtration Rate , Glucose Level 91, Calcium Level 8.2L, Total Bilirubin 0.3, Aspartate Amino Transf (AST/SGOT) 42H, Alanine Aminotransferase (ALT/SGPT) 39, Alkaline Phosphatase 67, Total Protein 6.1L, Albumin 2.3L, Globulin 3.8, Albumin /Globulin Ratio 0.6L Height (Feet): 5 Height (Inches): 7.00 Weight (Pounds): 162 General Appearance: no apparent distress, alert EENT: normal ENT inspection Neck: normal alignment Cardiovascular: normal rate Respiratory/Chest: lungs clear Abdomen: non tender Extremities: other - no edema Neurologic: tier over II-XII grossly normal Cesar Nunez MD Sep 05, 2018 08:42
[2018-09-05] MEDS: Magnesium Oxide 400mg tab ORAL SCH ×3 (09:32→17:43)
[2018-09-05] MEDS: Heparin 5000 units/ml inj SUBQ SCH ×2 (09:37→20:21)
--- NOTE | 2018-09-05 10:49 | General Progress Note ---
Assessment/Plan Problem List: (1) Sepsis ICD Codes: A41.9 - Sepsis, unspecified organism SNOMED: 68653310 (2) Diabetes ICD Codes: E11.9 - Type 2 diabetes mellitus without complications SNOMED: 66345980 (3) Adrenal insufficiency ICD Codes: E27.40 - Unspecified adrenocortical insufficiency SNOMED: 44011221, 522340838 (4) Abdominal distension (gaseous) ICD Codes: R14.0 - Abdominal distension (gaseous) SNOMED: 241095018 (5) Healthcare-associated pneumonia ICD Codes: J18.9 - Pneumonia, unspecified organism SNOMED: 166863874 (6) Anemia ICD Codes: D64.9 - Anemia, unspecified SNOMED: 490624207 Status: stable Assessment/Plan PLAN: 1. Maintain hydration. 2. Encourage oral intake with protein. will upgrade diet 3. Titrate hydrocortisone. 4. Respiratory hygiene, oxygen, and antimicrobials. 5. Transfer to step-down unit. 6. monitor CXR/IV abx 7. not ready for dc unless home abx can be arranged. Subjective ROS Limited/Unobtainable: No Constitutional: Reports: malaise, weakness HEENT: Reports: no symptoms Cardiovascular: Reports: no symptoms Respiratory: Reports: cough Gastrointestinal/Abdominal: Reports: no symptoms Genitourinary: Reports: no symptoms Neurologic/Psychiatric: Reports: no symptoms Endocrine: Reports: no symptoms Hematologic/Lymphatic: Reports: anemia Allergies: Coded Allergies: No Known Allergies (Unverified , 08/22/18) All Systems: reviewed and negative except above Subjective no new complaints. states he feels better. wants to go home. Objective Last 24 Hour Vital Signs Date Time Temp Pulse Resp B/P (MAP) Pulse Ox O2 Delivery O2 Flow Rate FiO2 09/05/18 08:00 97.9 63 21 139/73 (95) 98 09/05/18 08:00 Room Air Room Air Room Air 09/05/18 07:24 Room Air 21 09/05/18 07:24 98 Room Air 21 09/05/18 07:10 Room Air 21 09/05/18 07:10 Room Air 21 09/05/18 04:00 Room Air Room Air Room Air 09/05/18 04:00 97.9 76 18 136/76 (96) 96 09/05/18 03:26 80 09/05/18 01:27 77 16 98 Room Air 21 09/05/18 01:19 73 14 97 Room Air 21 09/05/18 00:00 97.5 72 20 130/67 (88) 95 09/05/18 00:00 Room Air Room Air Room Air 09/04/18 23:24 75 09/04/18 20:00 Room Air Room Air Room Air 09/04/18 20:00 98.2 75 20 140/75 (96) 93 09/04/18 19:38 80 18 99 Room Air 21 09/04/18 19:36 Room Air 21 09/04/18 19:29 72 16 100 Room Air 21 09/04/18 19:29 76 09/04/18 19:29 100 Room Air 21 09/04/18 16:00 98.0 80 22 131/68 (89) 93 09/04/18 16:00 Room Air Room Air Room Air 09/04/18 15:34 80 09/04/18 12:47 76 18 99 Room Air 21 09/04/18 12:37 76 18 94 Room Air 21 09/04/18 12:00 98.4 71 20 151/68 (95) 94 09/04/18 12:00 Room Air Room Air Room Air 09/04/18 11:49 75 Intake and Output 09/04/18 09/05/18 18:59 06:59 Intake Total 1444.000 ml 912 ml Output Total 300 ml 1100 ml Balance 1144.000 ml -188 ml Intake Oral 200 ml 240 ml IV Total 1244.000 ml 672 ml Output Urine Total 300 ml 1100 ml # Voids 4 # Bowel Movements 6 2 Laboratory Tests 09/04/18 14:15: Urine Color Pale yellow, Urine Appearance Clear, Urine pH 8, Urine Specific [place] 1.010, Urine Protein 2+H, Urine Glucose (UA) Negative, Urine Ketones Negative, Urine Blood 2+H, Urine Nitrite Negative, Urine Bilirubin Negative, Urine Urobilinogen Normal, Urine Leukocyte Esterase Negative, Urine RBC 2-4H, Urine WBC 0, Urine Squamous Epithelial Cells Occasional, Urine Bacteria Few 09/05/18 05:00: White Blood Count 10.6, Red Blood Count 2.99L, Hemoglobin 8.9L, Hematocrit 26.6L , Mean Corpuscular Volume 89, Mean Corpuscular Hemoglobin 29.9, Mean Corpuscular Hemoglobin Concent 33.6, Red Cell Distribution Width 12.6, Platelet Count 253, Mean Platelet Volume 7.0, Neutrophils (%) (Auto) , Lymphocytes (%) ( Auto) , Monocytes (%) (Auto) , Eosinophils (%) (Auto) , Basophils (%) (Auto) , Sodium Level 141, Potassium Level 3.7, Chloride Level 106, Carbon Dioxide Level 25, Anion Gap 10, Blood Urea Nitrogen 30H, Creatinine 2.0H, Estimat Glomerular Filtration Rate , Glucose Level 91, Calcium Level 8.2L, Total Bilirubin 0.3, Aspartate Amino Transf (AST/SGOT) 42H, Alanine Aminotransferase (ALT/SGPT) 39, Alkaline Phosphatase 67, Total Protein 6.1L, Albumin 2.3L, Globulin 3.8, Albumin /Globulin Ratio 0.6L Height (Feet): 5 Height (Inches): 7.00 Weight (Pounds): 162 Objective General Appearance: WD/WN, alert Neck: supple Cardiovascular: regular rhythm Respiratory/Chest: lungs clear Abdomen: normal bowel sounds, non tender, soft, no organomegaly Edema: no edema noted Arm (L), no edema noted Arm (R), no edema noted Leg (L), no edema noted Leg (R), no edema noted Pedal (L), no edema noted Pedal (R), no edema noted Generalized Dennys Castro MD Sep 05, 2018 10:49
[2018-09-05 12:00] VITALS: BP 130/73
--- NOTE | 2018-09-05 12:35 | General Surgery Progress Note ---
General Surgery-Progress Note Subjective Additional Comments doing well. no acute events. comfortable. improving Objective Last 24 Hour Vital Signs Date Time Temp Pulse Resp B/P (MAP) Pulse Ox O2 Delivery O2 Flow Rate FiO2 09/05/18 08:00 97.9 63 21 139/73 (95) 98 09/05/18 08:00 Room Air Room Air Room Air 09/05/18 07:25 76 09/05/18 07:24 Room Air 21 09/05/18 07:24 98 Room Air 21 09/05/18 07:10 Room Air 21 09/05/18 07:10 Room Air 21 09/05/18 04:00 Room Air Room Air Room Air 09/05/18 04:00 97.9 76 18 136/76 (96) 96 09/05/18 03:26 80 09/05/18 01:27 77 16 98 Room Air 21 09/05/18 01:19 73 14 97 Room Air 21 09/05/18 00:00 97.5 72 20 130/67 (88) 95 09/05/18 00:00 Room Air Room Air Room Air 09/04/18 23:24 75 09/04/18 20:00 Room Air Room Air Room Air 09/04/18 20:00 98.2 75 20 140/75 (96) 93 09/04/18 19:38 80 18 99 Room Air 21 09/04/18 19:36 Room Air 21 09/04/18 19:29 72 16 100 Room Air 21 09/04/18 19:29 76 09/04/18 19:29 100 Room Air 21 09/04/18 16:00 98.0 80 22 131/68 (89) 93 09/04/18 16:00 Room Air Room Air Room Air 09/04/18 15:34 80 09/04/18 12:47 76 18 99 Room Air 21 09/04/18 12:37 76 18 94 Room Air 21 I&O Intake and Output 09/04/18 09/05/18 19:00 07:00 Intake Total 1444.000 ml 912 ml Output Total 300 ml 1100 ml Balance 1144.000 ml -188 ml Intake Oral 200 ml 240 ml IV Total 1244.000 ml 672 ml Output Urine Total 300 ml 1100 ml # Voids 4 # Bowel Movements 6 2 Drains: none Cardiovascular: RSR Respiratory: clear Abdomen: soft, flat, non-tender, present bowel sounds Extremities: no tenderness, no cyanosis Laboratory Tests Test 09/04/18 14:15 09/05/18 05:00 Urine Color Pale yellow Urine Appearance Clear Urine pH 8 (4.5-8.0) Urine Specific [place] 1.010 (1.005-1.035) Urine Protein 2+ (NEGATIVE) H Urine Glucose (UA) Negative (NEGATIVE) Urine Ketones Negative (NEGATIVE) Urine Blood 2+ (NEGATIVE) H Urine Nitrite Negative (NEGATIVE) Urine Bilirubin Negative (NEGATIVE) Urine Urobilinogen Normal MG/DL (0.0-1.0) Urine Leukocyte Esterase Negative (NEGATIVE) Urine RBC 2-4 /HPF (0 - 0) H Urine WBC 0 /HPF (0 - 0) Urine Squamous Epithelial Cells Occasional /LPF Urine Bacteria Few /HPF (NONE) White Blood Count 10.6 K/UL (4.8-10.8) Red Blood Count 2.99 M/UL (4.70-6.10) L Hemoglobin 8.9 G/DL (14.2-18.0) L Hematocrit 26.6 % (42.0-52.0) L Mean Corpuscular Volume 89 FL (80-99) Mean Corpuscular Hemoglobin 29.9 PG (27.0-31.0) Mean Corpuscular Hemoglobin Concent 33.6 G/DL (32.0-36.0) Red Cell Distribution Width 12.6 % (11.6-14.8) Platelet Count 253 K/UL (150-450) Mean Platelet Volume 7.0 FL (6.5-10.1) Neutrophils (%) (Auto) % (45.0-75.0) Lymphocytes (%) (Auto) % (20.0-45.0) Monocytes (%) (Auto) % (1.0-10.0) Eosinophils (%) (Auto) % (0.0-3.0) Basophils (%) (Auto) % (0.0-2.0) Sodium Level 141 MMOL/L (136-145) Potassium Level 3.7 MMOL/L (3.5-5.1) Chloride Level 106 MMOL/L (98-107) Carbon Dioxide Level 25 MMOL/L (21-32) Anion Gap 10 mmol/L (5-15) Blood Urea Nitrogen 30 mg/dL (7-18) H Creatinine 2.0 MG/DL (0.55-1.30) H Estimat Glomerular Filtration Rate mL/min (>60) Glucose Level 91 MG/DL (74-106) Calcium Level 8.2 MG/DL (8.5-10.1) L Total Bilirubin 0.3 MG/DL (0.2-1.0) Aspartate Amino Transf (AST/SGOT) 42 U/L (15-37) H Alanine Aminotransferase (ALT/SGPT) 39 U/L (12-78) Alkaline Phosphatase 67 U/L (46-116) Total Protein 6.1 G/DL (6.4-8.2) L Albumin 2.3 G/DL (3.4-5.0) L Globulin 3.8 g/dL Albumin/Globulin Ratio 0.6 (1.0-2.7) L Plan Problems: (1) Sepsis (2) Abdominal distension (gaseous) Assessment & Plan: Abdominal distention / discomfort. no n/v/f/c. +flatus. feels bloated. exam with mild distention/non tender CT - Mildly fluid-filled small bowel loops, nonspecific, No acute process otherwise, Postcholecystectomy changes. What are probably hepatic cysts adjacent to the gallbladder fossa mimics fluid in the gallbladder fossa on the axial views, but appear to be cysts on the coronal images. Nonetheless, biloma or other pathologic collection not completely excludable Multiple nonobstructive left renal calculi Sarmiento catheter Bilateral basilar pulmonary interstitial prominence, nonspecific Scoliosis and spondylosis KUB - Nonspecific prominent but not frankly dilated gas-filled small bowel loops , decreased from previous day's exam Satisfactory position right groin central venous catheter worsening respiratory status requiring intubation abdominal exam unchanged KUB okay no signs of obstruction labs improved. gas okay recovering -no acute surgical intervention planned -Rx as written -diet as tolerated -activity as tolerated -will follow clinically with exams thank you for allowing me to participate in patients care David Daley Sep 05, 2018 12:34
--- NOTE | 2018-09-05 14:47 | NUR ---
CASE MANAGEMENT:REVIEW 09/05/18 SI: RESPIRATORY FAILURE. PNA 97.8 80 20 130/73 95% ON RA H/H-8.9/26.6 BUN+30 CR+2.0 IS: IV BACTRIM TID IV MEROPENEM Q12 IV SYNTHROID QD IV SOLUCORTEF Q8HRS HEPARIN SQ Q12 VORICONAZOLE PO Q12 DUONEB HHN Q6HRS RTC : STEP DOWN UNIT DCP: PATIENT FROM HOME
--- NOTE | 2018-09-05 15:06 | Pulmonology Progress Note ---
Assessment/Plan Assessment/Plan respiratory failure s/p extubation interstitial changes, ?chronic toxic metabolic encephalopathy anemia renal failure, chronic severe protein calorie malnutrition PLAN consider CT chest clinically comfortable on low flow oxygen care noted check BNP ? need to diurese impression, plan, and exam edited and reviewed in detail care discussed with RN Subjective Allergies: Coded Allergies: No Known Allergies (Unverified , 08/22/18) Subjective care noted and reviewed no distress findings noted confused Objective Last 24 Hour Vital Signs Date Time Temp Pulse Resp B/P (MAP) Pulse Ox O2 Delivery O2 Flow Rate FiO2 09/05/18 12:59 80 16 98 Room Air 21 09/05/18 12:49 78 16 98 Room Air 21 09/05/18 12:00 97.8 80 20 130/73 (92) 95 09/05/18 12:00 Room Air Room Air Room Air 09/05/18 11:38 81 09/05/18 08:00 97.9 63 21 139/73 (95) 98 09/05/18 08:00 Room Air Room Air Room Air 09/05/18 07:25 76 09/05/18 07:24 Room Air 21 09/05/18 07:24 98 Room Air 21 09/05/18 07:10 Room Air 21 09/05/18 07:10 Room Air 21 09/05/18 04:00 Room Air Room Air Room Air 09/05/18 04:00 97.9 76 18 136/76 (96) 96 09/05/18 03:26 80 09/05/18 01:27 77 16 98 Room Air 21 09/05/18 01:19 73 14 97 Room Air 21 09/05/18 00:00 97.5 72 20 130/67 (88) 95 09/05/18 00:00 Room Air Room Air Room Air 09/04/18 23:24 75 09/04/18 20:00 Room Air Room Air Room Air 09/04/18 20:00 98.2 75 20 140/75 (96) 93 09/04/18 19:38 80 18 99 Room Air 21 09/04/18 19:36 Room Air 21 09/04/18 19:29 72 16 100 Room Air 21 09/04/18 19:29 76 09/04/18 19:29 100 Room Air 21 09/04/18 16:00 98.0 80 22 131/68 (89) 93 09/04/18 16:00 Room Air Room Air Room Air 09/04/18 15:34 80 Intake and Output 09/04/18 09/05/18 19:00 07:00 Intake Total 1444.000 ml 912 ml Output Total 300 ml 1100 ml Balance 1144.000 ml -188 ml Intake Oral 200 ml 240 ml IV Total 1244.000 ml 672 ml Output Urine Total 300 ml 1100 ml # Voids 4 # Bowel Movements 6 2 Objective WDWN confused reduced breath sounds bilaterally without rhonchi or wheeze [id number] without MRG NABS nontender no HSM no CCE nonfocal overall Microbiology Date/Time Source Procedure Growth Status 09/04/18 15:30 Stool Clostridium difficile Toxin Assay - Final Complete Laboratory Tests 09/05/18 05:00: White Blood Count 10.6, Red Blood Count 2.99L, Hemoglobin 8.9L, Hematocrit 26.6L , Mean Corpuscular Volume 89, Mean Corpuscular Hemoglobin 29.9, Mean Corpuscular Hemoglobin Concent 33.6, Red Cell Distribution Width 12.6, Platelet Count 253, Mean Platelet Volume 7.0, Neutrophils (%) (Auto) , Lymphocytes (%) ( Auto) , Monocytes (%) (Auto) , Eosinophils (%) (Auto) , Basophils (%) (Auto) , Sodium Level 141, Potassium Level 3.7, Chloride Level 106, Carbon Dioxide Level 25, Anion Gap 10, Blood Urea Nitrogen 30H, Creatinine 2.0H, Estimat Glomerular Filtration Rate , Glucose Level 91, Calcium Level 8.2L, Total Bilirubin 0.3, Aspartate Amino Transf (AST/SGOT) 42H, Alanine Aminotransferase (ALT/SGPT) 39, Alkaline Phosphatase 67, Total Protein 6.1L, Albumin 2.3L, Globulin 3.8, Albumin /Globulin Ratio 0.6L Current Medications Medications (Trade) Dose Ordered Sig/Elli Route PRN Reason Start Time Stop Time Status Last Admin Dose Admin Acetaminophen (Tylenol) 650 mg Q4H PRN RECTAL Mild Pain (Pain Scale 1-3) 09/03/18 19:00 09/25/18 10:59 Albuterol/ Ipratropium (Albuterol/ Ipratropium) 3 ml Q6HRT HHN 09/03/18 19:00 09/07/18 00:59 09/05/18 12:49 Chlorhexidine Gluconate (Gabriela-Hex 2%) 1 applic DAILY@2000 TOPIC 09/03/18 20:00 09/25/18 19:59 09/04/18 20:34 Dextrose (Dextrose 50%) 25 ml Q30M PRN IV Hypoglycemia 09/03/18 16:30 09/21/18 23:29 Dextrose (Dextrose 50%) 50 ml Q30M PRN IV Hypoglycemia 09/03/18 16:30 09/21/18 23:29 Guaifenesin/ Dextromethorphan (Robitussin DM Syrup) 5 ml Q6H PRN ORAL For Cough 09/03/18 20:30 09/23/18 08:29 Heparin Sodium (Porcine) (Heparin 5000 units/ml) 5,000 units EVERY 12 HOURS SUBQ 09/03/18 21:00 09/22/18 08:59 09/05/18 09:37 Hydrocortisone (Solu-CORTEF) 25 mg EVERY 8 HOURS IV 09/03/18 22:00 09/25/18 21:59 09/05/18 14:00 Insulin Aspart (NovoLOG) BEFORE MEALS AND HS SUBQ 09/03/18 16:45 09/30/18 16:44 09/04/18 12:28 Levothyroxine Sodium (Synthroid) 75 mcg DAILY IV 09/04/18 09:00 09/27/18 08:59 09/05/18 09:33 Magnesium Oxide (Mag-Ox 400mg) 400 mg THREE TIMES A DAY ORAL 09/03/18 18:00 10/01/18 17:59 09/05/18 12:57 Meropenem 1 gm/ Sodium Chloride 100 ml @ 200 mls/hr Q12HR@0600,1800 IVPB 09/03/18 18:00 09/08/18 17:59 09/05/18 05:37 Ondansetron HCl (Zofran) 4 mg Q4H PRN IVP Nausea & Vomiting 09/03/18 17:15 09/22/18 17:03 Pantoprazole (Protonix) 40 mg DAILY ORAL 09/04/18 09:00 09/24/18 08:59 09/05/18 09:32 Tramadol HCl (Ultram) 50 mg TIDPRN PRN ORAL Pain level of 3-6 09/04/18 16:00 09/06/18 15:59 Trimethoprim/ Sulfamethoxazole 22 ml/Dextrose 572 ml @ 381.333 mls/hr 0000,0800,1600 IV 09/04/18 16:00 09/11/18 15:59 09/05/18 08:15 Voriconazole (Vfend) 200 mg Q12HR ORAL 09/03/18 21:00 09/08/18 20:59 09/05/18 09:32 Kyle Rankin MD Sep 05, 2018 15:06
--- NOTE | 2018-09-05 15:52 | NUR ---
NURSE NOTES: Patient was able to ambulate with PT earlier today. Assisted with walker to commode and chair. 1545 assisted patient to commode once again with walker. Gait is still unsteady, but regaining strength. Patient is now sitting and resting on chair with at bedside. No s/s of acute distress. Will continue to monitor.
[2018-09-05 16:00] VITALS: BP 117/70
--- NOTE | 2018-09-05 18:11 | General Progress Note ---
Assessment/Plan Problem List: (1) Sepsis ICD Codes: A41.9 - Sepsis, unspecified organism SNOMED: 59079765 (2) Diabetes ICD Codes: E11.9 - Type 2 diabetes mellitus without complications SNOMED: 67645169 (3) Hypothyroidism ICD Codes: E03.9 - Hypothyroidism, unspecified SNOMED: 68812259 (4) Adrenal insufficiency ICD Codes: E27.40 - Unspecified adrenocortical insufficiency SNOMED: 37020127, 806510080 (5) Abdominal distension (gaseous) ICD Codes: R14.0 - Abdominal distension (gaseous) SNOMED: 323489688 Assessment/Plan DC IVHC 25 mg start Cortef 20 mg am / 10 mg pm DC Levothyroxine 75 mcg IV daily - will start 150 mcg qam continue NISS Subjective Allergies: Coded Allergies: No Known Allergies (Unverified , 08/22/18) All Systems: reviewed and negative except above Subjective events noted sitting on a chair doing better walked with PT oral intake is fair Objective Last 24 Hour Vital Signs Date Time Temp Pulse Resp B/P (MAP) Pulse Ox O2 Delivery O2 Flow Rate FiO2 09/05/18 16:00 Room Air Room Air Room Air 09/05/18 16:00 97.5 88 20 117/70 (86) 95 09/05/18 15:39 85 09/05/18 12:59 80 16 98 Room Air 21 09/05/18 12:49 78 16 98 Room Air 21 09/05/18 12:00 97.8 80 20 130/73 (92) 95 09/05/18 12:00 Room Air Room Air Room Air 09/05/18 11:38 81 09/05/18 08:00 97.9 63 21 139/73 (95) 98 09/05/18 08:00 Room Air Room Air Room Air 09/05/18 07:25 76 09/05/18 07:24 Room Air 21 09/05/18 07:24 98 Room Air 21 09/05/18 07:10 Room Air 21 09/05/18 07:10 Room Air 21 09/05/18 04:00 Room Air Room Air Room Air 09/05/18 04:00 97.9 76 18 136/76 (96) 96 09/05/18 03:26 80 09/05/18 01:27 77 16 98 Room Air 21 09/05/18 01:19 73 14 97 Room Air 21 09/05/18 00:00 97.5 72 20 130/67 (88) 95 09/05/18 00:00 Room Air Room Air Room Air 09/04/18 23:24 75 09/04/18 20:00 Room Air Room Air Room Air 09/04/18 20:00 98.2 75 20 140/75 (96) 93 09/04/18 19:38 80 18 99 Room Air 21 09/04/18 19:36 Room Air 21 09/04/18 19:29 72 16 100 Room Air 21 09/04/18 19:29 76 09/04/18 19:29 100 Room Air 21 Intake and Output 09/04/18 09/05/18 19:00 07:00 Intake Total 1444.000 ml 912 ml Output Total 300 ml 1100 ml Balance 1144.000 ml -188 ml Intake Oral 200 ml 240 ml IV Total 1244.000 ml 672 ml Output Urine Total 300 ml 1100 ml # Voids 4 # Bowel Movements 6 2 Laboratory Tests 09/05/18 05:00: White Blood Count 10.6, Red Blood Count 2.99L, Hemoglobin 8.9L, Hematocrit 26.6L , Mean Corpuscular Volume 89, Mean Corpuscular Hemoglobin 29.9, Mean Corpuscular Hemoglobin Concent 33.6, Red Cell Distribution Width 12.6, Platelet Count 253, Mean Platelet Volume 7.0, Neutrophils (%) (Auto) , Lymphocytes (%) ( Auto) , Monocytes (%) (Auto) , Eosinophils (%) (Auto) , Basophils (%) (Auto) , Sodium Level 141, Potassium Level 3.7, Chloride Level 106, Carbon Dioxide Level 25, Anion Gap 10, Blood Urea Nitrogen 30H, Creatinine 2.0H, Estimat Glomerular Filtration Rate , Glucose Level 91, Calcium Level 8.2L, Total Bilirubin 0.3, Aspartate Amino Transf (AST/SGOT) 42H, Alanine Aminotransferase (ALT/SGPT) 39, Alkaline Phosphatase 67, Total Protein 6.1L, Albumin 2.3L, Globulin 3.8, Albumin /Globulin Ratio 0.6L Height (Feet): 5 Height (Inches): 7.00 Weight (Pounds): 162 General Appearance: no apparent distress Neck: normal alignment Cardiovascular: normal rate Respiratory/Chest: decreased breath sounds Abdomen: normal bowel sounds Pelvis: normal external exam Objective Current Medications Medications (Trade) Dose Ordered Sig/Elli Route PRN Reason Start Time Stop Time Status Last Admin Dose Admin Acetaminophen (Tylenol) 650 mg Q4H PRN RECTAL Mild Pain (Pain Scale 1-3) 09/03/18 19:00 09/25/18 10:59 Albuterol/ Ipratropium (Albuterol/ Ipratropium) 3 ml Q6HRT HHN 09/03/18 19:00 09/07/18 00:59 09/05/18 12:49 Chlorhexidine Gluconate (Gabriela-Hex 2%) 1 applic DAILY@2000 TOPIC 09/03/18 20:00 09/25/18 19:59 09/04/18 20:34 Dextrose (Dextrose 50%) 25 ml Q30M PRN IV Hypoglycemia 09/03/18 16:30 09/21/18 23:29 Dextrose (Dextrose 50%) 50 ml Q30M PRN IV Hypoglycemia 09/03/18 16:30 09/21/18 23:29 Guaifenesin/ Dextromethorphan (Robitussin DM Syrup) 5 ml Q6H PRN ORAL For Cough 09/03/18 20:30 09/23/18 08:29 Heparin Sodium (Porcine) (Heparin 5000 units/ml) 5,000 units EVERY 12 HOURS SUBQ 09/03/18 21:00 09/22/18 08:59 09/05/18 09:37 Hydrocortisone (Solu-CORTEF) 25 mg EVERY 8 HOURS IV 09/03/18 22:00 09/25/18 21:59 09/05/18 14:00 Insulin Aspart (NovoLOG) BEFORE MEALS AND HS SUBQ 09/03/18 16:45 09/30/18 16:44 09/05/18 16:26 Levothyroxine Sodium (Synthroid) 75 mcg DAILY IV 09/04/18 09:00 09/27/18 08:59 09/05/18 09:33 Magnesium Oxide (Mag-Ox 400mg) 400 mg THREE TIMES A DAY ORAL 09/03/18 18:00 10/01/18 17:59 09/05/18 17:43 Meropenem 1 gm/ Sodium Chloride 100 ml @ 200 mls/hr Q12HR@0600,1800 IVPB 09/03/18 18:00 09/08/18 17:59 09/05/18 17:44 Ondansetron HCl (Zofran) 4 mg Q4H PRN IVP Nausea & Vomiting 09/03/18 17:15 09/22/18 17:03 Pantoprazole (Protonix) 40 mg DAILY ORAL 09/04/18 09:00 09/24/18 08:59 09/05/18 09:32 Tramadol HCl (Ultram) 50 mg TIDPRN PRN ORAL Pain level of 3-6 09/04/18 16:00 09/06/18 15:59 Trimethoprim/ Sulfamethoxazole 22 ml/Dextrose 572 ml @ 381.333 mls/hr 0000,0800,1600 IV 09/04/18 16:00 09/11/18 15:59 09/05/18 16:24 Voriconazole (Vfend) 200 mg Q12HR ORAL 09/03/18 21:00 09/08/18 20:59 09/05/18 09:32 Item Value Date Time Bedside Blood Glucose 166 mg/dl H 09/05/18 1630 Bedside Blood Glucose 100 mg/dl 09/05/18 1130 Bedside Blood Glucose 102 mg/dl 09/05/18 0630 Bedside Blood Glucose 98 mg/dl 09/04/18 2220 Bedside Blood Glucose 102 mg/dl 09/04/18 1630 tSanford Baca MD Sep 05, 2018 18:11
--- NOTE | 2018-09-05 18:28 | Infectious Diseases Prog Note ---
Assessment/Plan Assessment/Plan ASSESSMENT/PLAN: 1. 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 hcap, ? aspiration, respiratory failure, on vent, ROSA likely secondary to sepsis/hypotension, group home steroid use - ? OI infection and pna, ? PJP (PCP), ? aspergillus, ? other, sc- chavez albicans, fungemia risk CT chest noted, s/p endotracheal lavage for respiratory sample and cultures - meropenem (08/27/18), voriconazole (08/30/18) and iv bactrim (08/31/18) - clinically much improved - base line G6PD ordered, pjp/pcp sample negative - f/u on labs and serology and cultures - steroids - monitor chest x-ray - icu care, bp support, vent support - d/w family at length - d/w pharmacy about abx dosing 2. The patient has a history of adrenal insufficiency. 3. History of melanoma in remission. 4. History of biliary sepsis, status post cholecystectomy. 5. Hypothyroidism. 6. Hypertension. 7. Diabetes. 8. History of cancer, which I believe is the melanoma. 9. Past medical history noted. 10. No known drug allergies. 11. Social history is negative. 12. Family history is negative. 13. MAR was noted. 14. Case was discussed with RN. 15. Case was discussed with Dr. Bonilla. 16. Case was discussed with the patient's family. 17. The patient was seen in the emergency room 18. The patient will need ICU care. 19. Continue treatment per primary consultants. 20. Notes and records were noted. 21. Orders were entered. 22. Case was discussed with pharmacy. 23. Skin care protocol. 24. Time spent - 45 minutes Subjective Constitutional: Denies: fever HEENT: Reports: congestion - less Respiratory: Reports: shortness of breath - less Cardiovascular: Denies: chest pain Gastrointestinal/Abdominal: Denies: nausea, vomiting, diarrhea Genitourinary: Reports: other - no reyes; Denies: dysuria, hematuria Neurologic: Denies: headache Psychiatric: Denies: depression Skin: Denies: rash Hematologic: Denies: bleeding Musculoskeletal: Denies: pain Allergies: Coded Allergies: No Known Allergies (Unverified , 12/17/18) Objective Vital Signs Last 24 Hour Vital Signs Date Time Temp Pulse Resp B/P (MAP) Pulse Ox O2 Delivery O2 Flow Rate FiO2 09/05/18 16:00 Room Air Room Air Room Air 09/05/18 16:00 97.5 88 20 117/70 (86) 95 09/05/18 15:39 85 09/05/18 12:59 80 16 98 Room Air 21 09/05/18 12:49 78 16 98 Room Air 21 09/05/18 12:00 97.8 80 20 130/73 (92) 95 09/05/18 12:00 Room Air Room Air Room Air 09/05/18 11:38 81 09/05/18 08:00 97.9 63 21 139/73 (95) 98 09/05/18 08:00 Room Air Room Air Room Air 09/05/18 07:25 76 09/05/18 07:24 Room Air 21 09/05/18 07:24 98 Room Air 21 09/05/18 07:10 Room Air 21 09/05/18 07:10 Room Air 21 09/05/18 04:00 Room Air Room Air Room Air 09/05/18 04:00 97.9 76 18 136/76 (96) 96 09/05/18 03:26 80 09/05/18 01:27 77 16 98 Room Air 21 09/05/18 01:19 73 14 97 Room Air 21 09/05/18 00:00 97.5 72 20 130/67 (88) 95 09/05/18 00:00 Room Air Room Air Room Air 09/04/18 23:24 75 09/04/18 20:00 Room Air Room Air Room Air 09/04/18 20:00 98.2 75 20 140/75 (96) 93 09/04/18 19:38 80 18 99 Room Air 21 09/04/18 19:36 Room Air 21 09/04/18 19:29 72 16 100 Room Air 21 09/04/18 19:29 76 09/04/18 19:29 100 Room Air 21 Height (Feet): 5 Height (Inches): 7.00 Weight (Pounds): 162 General Appearance: no acute distress HEENT: normocephalic, atraumatic, anicteric, mucous membranes moist Respiratory/Chest: crackles/rales Cardiovascular: normal rate, regular rhythm, no gallop/murmur, no JVD Abdomen: normal bowel sounds, soft, non tender, no organomegaly, non distended Genitourinary: other - no reyes Extremities: no cyanosis Skin: no rash 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 What are probably hepatic cysts adjacent to the gallbladder fossa mimics fluid in the gallbladder fossa on the axial views, but appear to be cysts on the coronal images. Nonetheless, biloma or other pathologic collection not completely excludable Multiple nonobstructive left renal calculi Reyes catheter Bilateral basilar pulmonary interstitial prominence, nonspecific Scoliosis and spondylosis Chest x-ray - nad x 2, reports noted Chest x-ray - 08/25/18 Impression: Interval worsening of aeration with development of dense airspace opacities in the medial right mid/lower lung and patchy opacities in the right upper lung concerning for multifocal pneumonia. Perihilar interstitial opacities in the left raise question for a degree of underlying congestion/fluid overload. Clinical correlation/follow-up recommended. Findings discussed with ordering physician Dr. Bonilla at time of dictation of the final report. Chest - x-ray - 08/26/18 - Procedure: XRAY Chest 1v Indication: Shortness of breath Technique: One view of the chest Comparison: 08/25/2018 Findings: Less optimal inspiration currently Extensive bilateral infiltrates versus edema appear unchanged on the right, slightly worse on the left. There may be some pleural fluid on the left. The heart size is normal Impression: Bilateral infiltrates again demonstrated, slightly worse on the left over one Chest x-ray - 08/28 - COMPARISON: Chest x-rays dated 08/27/18 FINDINGS: Lungs: Patchy perihilar opacities, which may represent pulmonary edema versus infiltrates, not significantly changed compared to the prior exam. Pleural space: Unremarkable. The costophrenic angles are sharp. No visible pneumothorax. Heart: Unremarkable. No cardiomegaly. Mediastinum: Unremarkable. Bones/joints: Unremarkable. Tubes, lines and devices: Stable positioning of the endotracheal tube and nasogastric tube. EKG leads overlie the thorax. IMPRESSION: No significant interval change in the patchy perihilar opacities, which may represent pulmonary edema versus infiltrates. Chest x-ray - 08/30/18 - FINDINGS: Lungs: Mild interstitial prominence minimally improved and slightly worsened bibasilar streaky airspace opacities. Pleural space: Unremarkable. No pneumothorax. Heart: Unremarkable. No cardiomegaly. Mediastinum: Unremarkable. Bones/joints: Unremarkable. Soft tissues: Left neck surgical clips. Tubes, lines and devices: Stable right PICC line. Interval removal of the previously seen endotracheal tube and NG tube. IMPRESSION: Mild interstitial prominence minimally improved and slightly worsened bibasilar streaky airspace opacities. Chest x-ray - 09/01 - Comparison: 08/30/2018: CT chest 08/31/2018 Findings: Heart size stable. Right-sided PICC line again noted. Interstitial and patchy bilateral airspace opacities again noted, not significant change allowing for differences in lung volumes. Small left pleural effusion. No pneumothorax. Surgical clips again noted in the left neck. Osseous structures stable. Impression: No significant interval change in the radiographic appearance of the chest compared to the prior exam allowing for differences in lung volumes. CT chest - IMPRESSION: * Bilateral predominantly perihilar nonspecific groundglass opacities may be reflective of a multifocal pneumonia. Component of edema may also be likely especially given mild smooth septal thickening. Correlate clinically. * Small bilateral pleural effusions adjacent atelectasis/consolidation in the posterior lower lobes. * Findings suggestive of anemia. 09/03/18 - FINDINGS: Lungs: Interstitial infiltration, left greater than right. Pleural space: Probable small left pleural effusion. No pneumothorax. Heart: Unremarkable. No cardiomegaly. Mediastinum: Unremarkable. Bones/joints: No acute fracture. Vasculature: Prominent aortic knob. Tubes, lines and devices: Right PICC line in the SVC. Other findings: Surgical changes left side of the neck. IMPRESSION: Interstitial infiltration, left greater than right. Microbiology Date/Time Source Procedure Growth Status 08/28/18 19:40 Blood Blood Culture - Final NO GROWTH AFTER 5 DAYS Complete 09/01/18 19:00 Sputum Induced Gram Stain - Final Complete 09/01/18 19:00 Sputum Induced Sputum Culture - Final NO GROWTH AFTER 48 HOURS Complete 09/04/18 15:30 Stool Clostridium difficile Toxin Assay - Final Complete 08/31/18 18:05 Indwelling Cath Urine Culture - Final NO GROWTH AFTER 48 HOURS Complete 08/22/18 20:30 Rectum VRE Culture - Final NO VANCOMYCIN RESISTANT ENTEROCOCCUS ... Complete 08/22/18 20:30 Rectum - Final NO CARBAPENEM-RESISTANT ENTEROBACTERI... Complete Microbiology Date/Time Source Procedure Growth Status 09/04/18 15:30 Stool Clostridium difficile Toxin Assay - Final Complete Laboratory Tests Test 09/05/18 05:00 White Blood Count 10.6 K/UL (4.8-10.8) Red Blood Count 2.99 M/UL (4.70-6.10) L Hemoglobin 8.9 G/DL (14.2-18.0) L Hematocrit 26.6 % (42.0-52.0) L Mean Corpuscular Volume 89 FL (80-99) Mean Corpuscular Hemoglobin 29.9 PG (27.0-31.0) Mean Corpuscular Hemoglobin Concent 33.6 G/DL (32.0-36.0) Red Cell Distribution Width 12.6 % (11.6-14.8) Platelet Count 253 K/UL (150-450) Mean Platelet Volume 7.0 FL (6.5-10.1) Neutrophils (%) (Auto) % (45.0-75.0) Lymphocytes (%) (Auto) % (20.0-45.0) Monocytes (%) (Auto) % (1.0-10.0) Eosinophils (%) (Auto) % (0.0-3.0) Basophils (%) (Auto) % (0.0-2.0) Sodium Level 141 MMOL/L (136-145) Potassium Level 3.7 MMOL/L (3.5-5.1) Chloride Level 106 MMOL/L (98-107) Carbon Dioxide Level 25 MMOL/L (21-32) Anion Gap 10 mmol/L (5-15) Blood Urea Nitrogen 30 mg/dL (7-18) H Creatinine 2.0 MG/DL (0.55-1.30) H Estimat Glomerular Filtration Rate mL/min (>60) Glucose Level 91 MG/DL (74-106) Calcium Level 8.2 MG/DL (8.5-10.1) L Total Bilirubin 0.3 MG/DL (0.2-1.0) Aspartate Amino Transf (AST/SGOT) 42 U/L (15-37) H Alanine Aminotransferase (ALT/SGPT) 39 U/L (12-78) Alkaline Phosphatase 67 U/L (46-116) Total Protein 6.1 G/DL (6.4-8.2) L Albumin 2.3 G/DL (3.4-5.0) L Globulin 3.8 g/dL Albumin/Globulin Ratio 0.6 (1.0-2.7) L Current Medications Medications (Trade) Dose Ordered Sig/Elli Route PRN Reason Start Time Stop Time Status Last Admin Dose Admin Acetaminophen (Tylenol) 650 mg Q4H PRN RECTAL Mild Pain (Pain Scale 1-3) 09/03/18 19:00 09/25/18 10:59 Albuterol/ Ipratropium (Albuterol/ Ipratropium) 3 ml Q6HRT HHN 09/03/18 19:00 09/07/18 00:59 09/05/18 12:49 Chlorhexidine Gluconate (Gabriela-Hex 2%) 1 applic DAILY@1999 TOPIC 09/03/18 20:00 09/25/18 19:59 09/04/18 20:34 Dextrose (Dextrose 50%) 25 ml Q30M PRN IV Hypoglycemia 09/03/18 16:30 09/21/18 23:29 Dextrose (Dextrose 50%) 50 ml Q30M PRN IV Hypoglycemia 09/03/18 16:30 09/21/18 23:29 Guaifenesin/ Dextromethorphan (Robitussin DM Syrup) 5 ml Q6H PRN ORAL For Cough 09/03/18 20:30 09/23/18 08:29 Heparin Sodium (Porcine) (Heparin 5000 units/ml) 5,000 units EVERY 12 HOURS SUBQ 09/03/18 21:00 09/22/18 08:59 09/05/18 09:37 Hydrocortisone (Cortef) 10 mg BEFORE DINNER ORAL 09/06/18 16:30 10/06/18 16:29 Hydrocortisone (Cortef) 20 mg BEFORE BREAKFAST ORAL 09/06/18 06:30 10/06/18 06:29 Insulin Aspart (NovoLOG) BEFORE MEALS AND HS SUBQ 09/03/18 16:45 09/30/18 16:44 09/05/18 16:26 Levothyroxine Sodium (Synthroid) 150 mcg DAILY@06 ORAL 09/06/18 06:30 10/06/18 06:29 Magnesium Oxide (Mag-Ox 400mg) 400 mg THREE TIMES A DAY ORAL 09/03/18 18:00 10/01/18 17:59 09/05/18 17:43 Meropenem 1 gm/ Sodium Chloride 100 ml @ 200 mls/hr Q12HR@0600,1800 IVPB 09/03/18 18:00 09/08/18 17:59 09/05/18 17:44 Ondansetron HCl (Zofran) 4 mg Q4H PRN IVP Nausea & Vomiting 09/03/18 17:15 09/22/18 17:03 Pantoprazole (Protonix) 40 mg DAILY ORAL 09/04/18 09:00 09/24/18 08:59 09/05/18 09:32 Tramadol HCl (Ultram) 50 mg TIDPRN PRN ORAL Pain level of 3-6 09/04/18 16:00 09/06/18 15:59 Trimethoprim/ Sulfamethoxazole 22 ml/Dextrose 572 ml @ 381.333 mls/hr 0000,0800,1600 IV 09/04/18 16:00 09/11/18 15:59 09/05/18 16:24 Voriconazole (Vfend) 200 mg Q12HR ORAL 09/03/18 21:00 09/08/18 20:59 09/05/18 09:32 Treasure Vargas MD Sep 05, 2018 18:28
--- NOTE | 2018-09-05 18:29 | General Progress Note ---
Assessment/Plan Assessment/Plan Assessment - abnormal LFT - Melanoma - s/p cholecystectomy - Urolithiasis - Anemia, gastrocult (+) - Pneumonia - Azotemia - diarrhea Recommendations - Abx per ID - check C Diff --> negative - cardiology / pulmonary follow up - po diet as tolerated - follow labs and exam - EGD/colon at a later date once stable Subjective Allergies: Coded Allergies: No Known Allergies (Unverified , 08/22/18) Subjective eating OK some loose stools C Diff (-) Objective Last 24 Hour Vital Signs Date Time Temp Pulse Resp B/P (MAP) Pulse Ox O2 Delivery O2 Flow Rate FiO2 09/05/18 16:00 Room Air Room Air Room Air 09/05/18 16:00 97.5 88 20 117/70 (86) 95 09/05/18 15:39 85 09/05/18 12:59 80 16 98 Room Air 21 09/05/18 12:49 78 16 98 Room Air 21 09/05/18 12:00 97.8 80 20 130/73 (92) 95 09/05/18 12:00 Room Air Room Air Room Air 09/05/18 11:38 81 09/05/18 08:00 97.9 63 21 139/73 (95) 98 09/05/18 08:00 Room Air Room Air Room Air 09/05/18 07:25 76 09/05/18 07:24 Room Air 21 09/05/18 07:24 98 Room Air 21 09/05/18 07:10 Room Air 21 09/05/18 07:10 Room Air 21 09/05/18 04:00 Room Air Room Air Room Air 09/05/18 04:00 97.9 76 18 136/76 (96) 96 09/05/18 03:26 80 09/05/18 01:27 77 16 98 Room Air 21 09/05/18 01:19 73 14 97 Room Air 21 09/05/18 00:00 97.5 72 20 130/67 (88) 95 09/05/18 00:00 Room Air Room Air Room Air 09/04/18 23:24 75 09/04/18 20:00 Room Air Room Air Room Air 09/04/18 20:00 98.2 75 20 140/75 (96) 93 09/04/18 19:38 80 18 99 Room Air 21 09/04/18 19:36 Room Air 21 09/04/18 19:29 72 16 100 Room Air 21 09/04/18 19:29 76 09/04/18 19:29 100 Room Air 21 Intake and Output 09/04/18 09/05/18 19:00 07:00 Intake Total 1444.000 ml 912 ml Output Total 300 ml 1100 ml Balance 1144.000 ml -188 ml Intake Oral 200 ml 240 ml IV Total 1244.000 ml 672 ml Output Urine Total 300 ml 1100 ml # Voids 4 # Bowel Movements 6 2 Laboratory Tests 09/05/18 05:00: White Blood Count 10.6, Red Blood Count 2.99L, Hemoglobin 8.9L, Hematocrit 26.6L , Mean Corpuscular Volume 89, Mean Corpuscular Hemoglobin 29.9, Mean Corpuscular Hemoglobin Concent 33.6, Red Cell Distribution Width 12.6, Platelet Count 253, Mean Platelet Volume 7.0, Neutrophils (%) (Auto) , Lymphocytes (%) ( Auto) , Monocytes (%) (Auto) , Eosinophils (%) (Auto) , Basophils (%) (Auto) , Sodium Level 141, Potassium Level 3.7, Chloride Level 106, Carbon Dioxide Level 25, Anion Gap 10, Blood Urea Nitrogen 30H, Creatinine 2.0H, Estimat Glomerular Filtration Rate , Glucose Level 91, Calcium Level 8.2L, Total Bilirubin 0.3, Aspartate Amino Transf (AST/SGOT) 42H, Alanine Aminotransferase (ALT/SGPT) 39, Alkaline Phosphatase 67, Total Protein 6.1L, Albumin 2.3L, Globulin 3.8, Albumin /Globulin Ratio 0.6L Height (Feet): 5 Height (Inches): 7.00 Weight (Pounds): 162 Objective Thin WM NAD NCAT supple Coars BS RR abd soft no edema non focal Francisco Delgadillo MD Sep 05, 2018 18:29
--- NOTE | 2018-09-05 19:15 | NUR ---
NURSE NOTES: Received report from Shawnee RN, pt. in bed awake, A/O x's4- able to make needs known, no signs or symptoms of acute distress noted, bed in lowest position and call light within easy reach, bed alarm on, side rails up x's 2 and safety brakes engaged, pt. appears to be sating well on room air at 99%- no respiratory distress noted, pt. is clean and dry, appears to be resting comfortably watching television, urinal at bedside and within easy reach, RADHA PICC intact/ patent, safety measures continued, will continue with plan of care.
--- NOTE | 2018-09-05 19:25 | NUR ---
HAND-OFF: Report given to Ranjeet Moura RN.
[2018-09-05 20:00] VITALS: BP 134/68
[2018-09-05] MEDS: Dyna-Hex 2% Top Sol 2oz TOPIC SCH (20:20)
[2018-09-06] VITALS: BP 115/68
[2018-09-06] MEDS: Albuterol/Ipratropium 3ml neb HHN SCH ×4 (01:00→21:02)
[2018-09-06 04:00] VITALS: BP 135/71
[2018-09-06] MEDS: NovoLOG Insulin Flexpen SUBQ SCH ×4 (05:59→20:58)
[2018-09-06] MEDS: Hydrocortisone 20mg tab ORAL SCH (06:00)
--- NOTE | 2018-09-06 07:10 | NUR ---
HAND-OFF: Report given to Adrienne Rn, pt. stable and no s/s of acute distress noted.
--- NOTE | 2018-09-06 07:11 | NUR ---
NURSE NOTES: Received patient from FAY Lowry. Patient VS stable at this time. Patient has anxiety at this time. Patient asking to be cleaned. Will follow up when possible. patient is alert and oriented but reportedly forgetful. Patient is on RA with stable saturation of 93%. Patient showing SR on the monitor. Patient has a bedside commode, but is not steady on his feet. Will monitor and keep bed alarm on and call light in place. Patient has urinal at the bedside. Patient has sacral redness at this time. Patient has R upper arm PICC that is patent and saline locked at this time. Patient has an EGD scheduled when more stable. Will follow up. Patient bed in low position with bed alarm on and call light in reach at this time.
[2018-09-06 08:00] VITALS: BP_SYST 123; BP_SYST 125; BP_DIAS 70; BP_DIAS 71
[2018-09-06] MEDS: TRIMETHOPRIM IV SCH ×2 (08:49→18:54)
[2018-09-06] MEDS: D5W IV SCH ×2 (08:49→18:54)
[2018-09-06] MEDS: SULFAMETHOXAZOLE IV SCH ×2 (08:49→18:54)
[2018-09-06] MEDS: Magnesium Oxide 400mg tab ORAL SCH ×3 (08:50→17:45)
[2018-09-06] MEDS: Heparin 5000 units/ml inj SUBQ SCH ×2 (08:51→21:00)
--- NOTE | 2018-09-06 10:08 | Nephrology Progress Note ---
Assessment/Plan Problem List: (1) Respiratory failure (2) ROSA (acute kidney injury) (3) Sepsis (4) Adrenal insufficiency (5) Healthcare-associated pneumonia Plan cxr represent pneumonia rather than chf, will stop lasix for now, replace K, now off pressors, hydrate can dc iv now , Lm low likely prerenal, avoid over hydration dc reyes , voiding trial, lab better Subjective Constitutional: Reports: weakness HEENT: Reports: no symptoms Genitourinary: Reports: no symptoms Neurologic/Psychiatric: Reports: no symptoms Objective Objective Last 24 Hour Vital Signs Date Time Temp Pulse Resp B/P (MAP) Pulse Ox O2 Delivery O2 Flow Rate FiO2 09/06/18 08:17 84 09/06/18 07:45 77 20 97 Room Air 21 09/06/18 07:29 Room Air 21 09/06/18 07:29 96 Room Air 21 09/06/18 07:29 79 18 96 Room Air 21 09/06/18 04:00 Room Air Room Air Room Air 09/06/18 04:00 97.7 73 18 135/71 (92) 93 09/06/18 04:00 72 09/06/18 01:28 Room Air 21 09/06/18 01:28 Room Air 21 09/06/18 00:00 Room Air Room Air Room Air 09/06/18 00:00 80 09/06/18 00:00 98.6 84 20 115/68 (84) 93 09/05/18 20:00 72 09/05/18 20:00 Room Air Room Air Room Air 09/05/18 20:00 98.5 84 20 134/68 (90) 94 09/05/18 19:20 82 16 97 Room Air 21 09/05/18 19:14 94 Room Air 21 09/05/18 19:14 Room Air 21 09/05/18 19:12 81 16 94 Room Air 21 09/05/18 16:00 Room Air Room Air Room Air 09/05/18 16:00 97.5 88 20 117/70 (86) 95 09/05/18 15:39 85 09/05/18 12:59 80 16 98 Room Air 21 09/05/18 12:49 78 16 98 Room Air 21 09/05/18 12:00 97.8 80 20 130/73 (92) 95 09/05/18 12:00 Room Air Room Air Room Air 09/05/18 11:38 81 Intake and Output 09/05/18 09/06/18 19:00 07:00 Intake Total 1272.000 ml 762.6 ml Output Total 400 ml Balance 872.000 ml 762.6 ml Intake Oral 700 ml IV Total 572.000 ml 762.6 ml Output Urine Total 400 ml # Voids 4 3 # Bowel Movements 3 2 Laboratory Tests 09/06/18 04:00: Pro-B-Type Natriuretic Peptide 2329H Height (Feet): 5 Height (Inches): 7.00 Weight (Pounds): 154 General Appearance: no apparent distress, alert EENT: normal ENT inspection Neck: normal alignment Cardiovascular: normal rate Respiratory/Chest: lungs clear Abdomen: non tender, soft Extremities: other - no edema 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
--- NOTE | 2018-09-06 11:11 | Pulmonology Progress Note ---
Assessment/Plan Assessment/Plan respiratory failure s/p extubation interstitial changes, ?chronic toxic metabolic encephalopathy anemia renal failure, chronic severe protein calorie malnutrition elevated BNP PLAN consider CT chest - will order clinically comfortable on low flow oxygen care noted ? need to diurese with elevated BNP impression, plan, and exam edited and reviewed in detail care discussed with RN Subjective Allergies: Coded Allergies: No Known Allergies (Unverified , 08/22/18) Subjective care noted and reviewed no distress findings noted confused and appears without change Objective Last 24 Hour Vital Signs Date Time Temp Pulse Resp B/P (MAP) Pulse Ox O2 Delivery O2 Flow Rate FiO2 09/06/18 08:17 84 09/06/18 07:45 77 20 97 Room Air 21 09/06/18 07:29 Room Air 21 09/06/18 07:29 96 Room Air 21 09/06/18 07:29 79 18 96 Room Air 21 09/06/18 04:00 Room Air Room Air Room Air 09/06/18 04:00 97.7 73 18 135/71 (92) 93 09/06/18 04:00 72 09/06/18 01:28 Room Air 21 09/06/18 01:28 Room Air 21 09/06/18 00:00 Room Air Room Air Room Air 09/06/18 00:00 80 09/06/18 00:00 98.6 84 20 115/68 (84) 93 09/05/18 20:00 72 09/05/18 20:00 Room Air Room Air Room Air 09/05/18 20:00 98.5 84 20 134/68 (90) 94 09/05/18 19:20 82 16 97 Room Air 21 09/05/18 19:14 94 Room Air 21 09/05/18 19:14 Room Air 21 09/05/18 19:12 81 16 94 Room Air 21 09/05/18 16:00 Room Air Room Air Room Air 09/05/18 16:00 97.5 88 20 117/70 (86) 95 09/05/18 15:39 85 09/05/18 12:59 80 16 98 Room Air 21 09/05/18 12:49 78 16 98 Room Air 21 09/05/18 12:00 97.8 80 20 130/73 (92) 95 09/05/18 12:00 Room Air Room Air Room Air 09/05/18 11:38 81 Intake and Output 12/31/18 1/1/19 18:59 06:59 Intake Total 1272.000 ml 762.6 ml Output Total 400 ml Balance 872.000 ml 762.6 ml Intake Oral 700 ml IV Total 572.000 ml 762.6 ml Output Urine Total 400 ml # Voids 4 3 # Bowel Movements 3 2 Objective WDWN confused reduced breath sounds bilaterally without rhonchi or wheeze [id number] without MRG NABS nontender no HSM no CCE nonfocal overall Microbiology Date/Time Source Procedure Growth Status 09/04/18 15:30 Stool Clostridium difficile Toxin Assay - Final Complete Laboratory Tests 09/06/18 04:00: Pro-B-Type Natriuretic Peptide 2329H Current Medications Medications (Trade) Dose Ordered Sig/Elli Route PRN Reason Start Time Stop Time Status Last Admin Dose Admin Acetaminophen (Tylenol) 650 mg Q4H PRN RECTAL Mild Pain (Pain Scale 1-3) 09/03/18 19:00 09/25/18 10:59 Albuterol/ Ipratropium (Albuterol/ Ipratropium) 3 ml Q6HRT HHN 09/03/18 19:00 09/07/18 00:59 09/06/18 07:29 Chlorhexidine Gluconate (Gabriela-Hex 2%) 1 applic DAILY@1999 TOPIC 09/03/18 20:00 09/25/18 19:59 09/05/18 20:20 Dextrose (Dextrose 50%) 25 ml Q30M PRN IV Hypoglycemia 09/03/18 16:30 09/21/18 23:29 Dextrose (Dextrose 50%) 50 ml Q30M PRN IV Hypoglycemia 09/03/18 16:30 09/21/18 23:29 Guaifenesin/ Dextromethorphan (Robitussin DM Syrup) 5 ml Q6H PRN ORAL For Cough 09/03/18 20:30 09/23/18 08:29 Heparin Sodium (Porcine) (Heparin 5000 units/ml) 5,000 units EVERY 12 HOURS SUBQ 09/03/18 21:00 09/22/18 08:59 09/06/18 08:51 Hydrocortisone (Cortef) 10 mg BEFORE DINNER ORAL 09/06/18 16:30 10/06/18 16:29 Hydrocortisone (Cortef) 20 mg BEFORE BREAKFAST ORAL 09/06/18 06:30 10/06/18 06:29 09/06/18 06:00 Insulin Aspart (NovoLOG) BEFORE MEALS AND HS SUBQ 09/03/18 16:45 09/30/18 16:44 09/05/18 20:23 Levothyroxine Sodium (Synthroid) 150 mcg DAILY@0630 ORAL 09/06/18 06:30 10/06/18 06:29 09/06/18 06:00 Magnesium Oxide (Mag-Ox 400mg) 400 mg THREE TIMES A DAY ORAL 09/03/18 18:00 10/01/18 17:59 09/06/18 08:50 Meropenem 1 gm/ Sodium Chloride 100 ml @ 200 mls/hr Q12HR@0600,1800 IVPB 09/03/18 18:00 09/08/18 17:59 09/06/18 06:00 Ondansetron HCl (Zofran) 4 mg Q4H PRN IVP Nausea & Vomiting 09/03/18 17:15 09/22/18 17:03 Pantoprazole (Protonix) 40 mg DAILY ORAL 09/04/18 09:00 09/24/18 08:59 09/06/18 08:50 Tramadol HCl (Ultram) 50 mg TIDPRN PRN ORAL Pain level of 3-6 09/04/18 16:00 09/06/18 15:59 Trimethoprim/ Sulfamethoxazole 22 ml/Dextrose 572 ml @ 381.333 mls/hr 0000,0800,1600 IV 09/04/18 16:00 09/11/18 15:59 09/06/18 08:49 Voriconazole (Vfend) 200 mg Q12HR ORAL 09/03/18 21:00 09/08/18 20:59 09/06/18 08:50 Kyle Rankin MD Sep 06, 2018 11:11
--- NOTE | 2018-09-06 11:14 | General Progress Note ---
Assessment/Plan Problem List: (1) Sepsis ICD Codes: A41.9 - Sepsis, unspecified organism SNOMED: 69028237 (2) Diabetes ICD Codes: E11.9 - Type 2 diabetes mellitus without complications SNOMED: 30614047 (3) Adrenal insufficiency ICD Codes: E27.40 - Unspecified adrenocortical insufficiency SNOMED: 83091932, 553893872 (4) Abdominal distension (gaseous) ICD Codes: R14.0 - Abdominal distension (gaseous) SNOMED: 969835453 (5) Healthcare-associated pneumonia ICD Codes: J18.9 - Pneumonia, unspecified organism SNOMED: 109567458 (6) Anemia ICD Codes: D64.9 - Anemia, unspecified SNOMED: 151776921 Status: stable, progressing Assessment/Plan PLAN: 1. Maintain hydration. 2. Encourage oral intake with protein. will upgrade diet 3. Titrate hydrocortisone. 4. Respiratory hygiene, oxygen, and antimicrobials. 5. Transfer to step-down unit. 6. monitor CXR/IV abx 7. not ready for dc unless home abx can be arranged. Subjective ROS Limited/Unobtainable: No Constitutional: Reports: malaise, weakness HEENT: Reports: no symptoms Cardiovascular: Reports: no symptoms Respiratory: Reports: cough Gastrointestinal/Abdominal: Reports: no symptoms Genitourinary: Reports: no symptoms Neurologic/Psychiatric: Reports: no symptoms Endocrine: Reports: no symptoms Hematologic/Lymphatic: Reports: anemia Allergies: Coded Allergies: No Known Allergies (Unverified , 08/22/18) All Systems: reviewed and negative except above Subjective no new complaints. states he feels better. wants to go home. remains on multiple abx. no fevers Objective Last 24 Hour Vital Signs Date Time Temp Pulse Resp B/P (MAP) Pulse Ox O2 Delivery O2 Flow Rate FiO2 09/06/18 08:17 84 09/06/18 07:45 77 20 97 Room Air 21 09/06/18 07:29 Room Air 21 09/06/18 07:29 96 Room Air 21 09/06/18 07:29 79 18 96 Room Air 21 09/06/18 04:00 Room Air Room Air Room Air 09/06/18 04:00 97.7 73 18 135/71 (92) 93 09/06/18 04:00 72 09/06/18 01:28 Room Air 21 09/06/18 01:28 Room Air 21 09/06/18 00:00 Room Air Room Air Room Air 09/06/18 00:00 80 09/06/18 00:00 98.6 84 20 115/68 (84) 93 09/05/18 20:00 72 09/05/18 20:00 Room Air Room Air Room Air 09/05/18 20:00 98.5 84 20 134/68 (90) 94 09/05/18 19:20 82 16 97 Room Air 21 09/05/18 19:14 94 Room Air 21 09/05/18 19:14 Room Air 21 09/05/18 19:12 81 16 94 Room Air 21 09/05/18 16:00 Room Air Room Air Room Air 09/05/18 16:00 97.5 88 20 117/70 (86) 95 09/05/18 15:39 85 09/05/18 12:59 80 16 98 Room Air 09/05/18 12:49 78 16 98 Room Air 09/05/18 12:00 97.8 80 20 130/73 (92) 95 09/05/18 12:00 Room Air Room Air Room Air 09/05/18 11:38 81 Intake and Output 09/05/18 09/06/18 18:59 06:59 Intake Total 1272.000 ml 762.6 ml Output Total 400 ml Balance 872.000 ml 762.6 ml Intake Oral 700 ml IV Total 572.000 ml 762.6 ml Output Urine Total 400 ml # Voids 4 3 # Bowel Movements 3 2 Laboratory Tests 09/06/18 04:00: Pro-B-Type Natriuretic Peptide 2329H Height (Feet): 5 Height (Inches): 7.00 Weight (Pounds): 154 Objective General Appearance: WD/WN, alert Neck: supple Cardiovascular: regular rhythm Respiratory/Chest: lungs clear Abdomen: normal bowel sounds, non tender, soft, no organomegaly Edema: no edema noted Arm (L), no edema noted Arm (R), no edema noted Leg (L), no edema noted Leg (R), no edema noted Pedal (L), no edema noted Pedal (R), no edema noted Generalized Dennys Castro MD Sep 06, 2018 11:14
[2018-09-06 11:59] LABS: ANION GAP 12 mmol/L (5-15); BLOOD UREA NITROGEN 26 mg/dL (7-18); CARBON DIOXIDE 21 MMOL/L (21-32); CHLORIDE 104 MMOL/L (98-107); CREATININE 1.9 MG/DL (0.55-1.30); POTASSIUM 3.7 MMOL/L (3.5-5.1); SODIUM 137 MMOL/L (136-145)
[2018-09-06 12:00] VITALS: BP 125/71
--- NOTE | 2018-09-06 12:54 | General Surgery Progress Note ---
General Surgery-Progress Note Subjective Symptoms: improved, tolerating diet, passing flatus Additional Comments no acute events. labs noted Objective Last 24 Hour Vital Signs Date Time Temp Pulse Resp B/P (MAP) Pulse Ox O2 Delivery O2 Flow Rate FiO2 09/06/18 08:17 84 09/06/18 07:45 77 20 97 Room Air 21 09/06/18 07:29 Room Air 21 09/06/18 07:29 96 Room Air 21 09/06/18 07:29 79 18 96 Room Air 09/06/18 04:00 Room Air Room Air Room Air 09/06/18 04:00 97.7 73 18 135/71 (92) 93 09/06/18 04:00 72 09/06/18 01:28 Room Air 09/06/18 01:28 Room Air 09/06/18 00:00 Room Air Room Air Room Air 09/06/18 00:00 80 09/06/18 00:00 98.6 84 20 115/68 (84) 93 09/05/18 20:00 72 09/05/18 20:00 Room Air Room Air Room Air 09/05/18 20:00 98.5 84 20 134/68 (90) 94 09/05/18 19:20 82 16 97 Room Air 21 09/05/18 19:14 94 Room Air 21 09/05/18 19:14 Room Air 21 09/05/18 19:12 81 16 94 Room Air 21 09/05/18 16:00 Room Air Room Air Room Air 09/05/18 16:00 97.5 88 20 117/70 (86) 95 09/05/18 15:39 85 09/05/18 12:59 80 16 98 Room Air 21 I&O Intake and Output 09/05/18 09/06/18 18:59 06:59 Intake Total 1272.000 ml 762.6 ml Output Total 400 ml Balance 872.000 ml 762.6 ml Intake Oral 700 ml IV Total 572.000 ml 762.6 ml Output Urine Total 400 ml # Voids 4 3 # Bowel Movements 3 2 Drains: none Cardiovascular: RSR Respiratory: clear Abdomen: soft, flat, non-tender, present bowel sounds Extremities: no cyanosis Laboratory Tests Test 09/06/18 04:00 09/06/18 11:22 Pro-B-Type Natriuretic Peptide 2329 pg/mL (0-125) H Sodium Level 137 MMOL/L (136-145) Potassium Level 3.7 MMOL/L (3.5-5.1) Chloride Level 104 MMOL/L (98-107) Carbon Dioxide Level 21 MMOL/L (21-32) Anion Gap 12 mmol/L (5-15) Blood Urea Nitrogen 26 mg/dL (7-18) H Creatinine 1.9 MG/DL (0.55-1.30) H Estimat Glomerular Filtration Rate mL/min (>60) Glucose Level 206 MG/DL (74-106) #H Calcium Level 8.0 MG/DL (8.5-10.1) L Plan Problems: (1) Sepsis (2) Abdominal distension (gaseous) Assessment & Plan: Abdominal distention / discomfort. no n/v/f/c. +flatus. feels bloated. exam with mild distention/non tender CT - Mildly fluid-filled small bowel loops, nonspecific, No acute process otherwise, Postcholecystectomy changes. What are probably hepatic cysts adjacent to the gallbladder fossa mimics fluid in the gallbladder fossa on the axial views, but appear to be cysts on the coronal images. Nonetheless, biloma or other pathologic collection not completely excludable Multiple nonobstructive left renal calculi Sarmiento catheter Bilateral basilar pulmonary interstitial prominence, nonspecific Scoliosis and spondylosis KUB - Nonspecific prominent but not frankly dilated gas-filled small bowel loops , decreased from previous day's exam Satisfactory position right groin central venous catheter worsening respiratory status requiring intubation abdominal exam unchanged KUB okay no signs of obstruction labs improved. gas okay recovering -no acute surgical intervention planned -Rx as written -diet as tolerated -activity as tolerated -will follow clinically with exams thank you for allowing me to participate in patients care David Daley Sep 06, 2018 12:54
[2018-09-06 16:00] VITALS: BP 134/64
[2018-09-06] MEDS: Bactrim-DS 1 tab ORAL SCH (16:37)
--- NOTE | 2018-09-06 18:15 | General Progress Note ---
Assessment/Plan Assessment/Plan Assessment - abnormal LFT - Melanoma - s/p cholecystectomy - Urolithiasis - Anemia, gastrocult (+) - Pneumonia - Azotemia - diarrhea Recommendations - Abx per ID - check C Diff --> negative - cardiology / pulmonary follow up - po diet as tolerated - follow labs and exam - EGD/colon at a later date once stable Subjective Allergies: Coded Allergies: No Known Allergies (Unverified , 08/22/18) Subjective eating OK no new complaints still with diarrhea C Diff (-) Objective Last 24 Hour Vital Signs Date Time Temp Pulse Resp B/P (MAP) Pulse Ox O2 Delivery O2 Flow Rate FiO2 09/06/18 15:58 Room Air Room Air Room Air 09/06/18 15:33 78 09/06/18 13:52 91 20 96 Room Air 21 09/06/18 13:38 80 18 93 Room Air 21 09/06/18 12:00 97.0 81 18 125/71 (89) 95 09/06/18 12:00 Room Air Room Air Room Air 09/06/18 11:34 84 09/06/18 08:17 84 09/06/18 08:00 97.7 85 22 123/70 (87) 94 09/06/18 08:00 Room Air Room Air Room Air 09/06/18 07:45 77 20 97 Room Air 21 09/06/18 07:29 Room Air 21 09/06/18 07:29 96 Room Air 21 09/06/18 07:29 79 18 96 Room Air 21 09/06/18 04:00 Room Air Room Air Room Air 09/06/18 04:00 97.7 73 18 135/71 (92) 93 09/06/18 04:00 72 09/06/18 01:28 Room Air 21 09/06/18 01:28 Room Air 21 09/06/18 00:00 Room Air Room Air Room Air 09/06/18 00:00 80 09/06/18 00:00 98.6 84 20 115/68 (84) 93 09/05/18 20:00 72 09/05/18 20:00 Room Air Room Air Room Air 09/05/18 20:00 98.5 84 20 134/68 (90) 94 09/05/18 19:20 82 16 97 Room Air 21 09/05/18 19:14 94 Room Air 21 09/05/18 19:14 Room Air 21 09/05/18 19:12 81 16 94 Room Air 21 Intake and Output 09/05/18 09/06/18 19:00 07:00 Intake Total 1272.000 ml 762.6 ml Output Total 400 ml Balance 872.000 ml 762.6 ml Intake Oral 700 ml IV Total 572.000 ml 762.6 ml Output Urine Total 400 ml # Voids 4 3 # Bowel Movements 3 2 Laboratory Tests 09/06/18 04:00: Pro-B-Type Natriuretic Peptide 2329H 09/06/18 11:22: Sodium Level 137, Potassium Level 3.7, Chloride Level 104, Carbon Dioxide Level 21, Anion Gap 12, Blood Urea Nitrogen 26H, Creatinine 1.9H, Estimat Glomerular Filtration Rate , Glucose Level 206#H, Calcium Level 8.0L Height (Feet): 5 Height (Inches): 7.00 Weight (Pounds): 154 Objective Thin WM NAD NCAT supple Coars BS RR abd soft no edema non focal Francisco Delgadillo MD Sep 06, 2018 18:15
[2018-09-06] MEDS ORDERED: Lactobacillus-GG tablet ORAL SCH (18:30)
--- NOTE | 2018-09-06 19:09 | NUR ---
HAND-OFF: Report given to FAY Lowry. Patient VS stable at this time with no sign of acute distress.
--- NOTE | 2018-09-06 19:10 | NUR ---
NURSE NOTES: Received report from Adrienne APONTE, pt. in bed awake, A/O x's4- able to make needs known, no signs or symptoms of acute cardiac or respiratory distress noted, bed in lowest position and call light within easy reach, bed alarm on, side rails up x's 2 and safety brakes engaged, pt. appears to be sating well on room air at 98%- no respiratory distress noted, pt. is clean and dry, appears to be resting comfortably watching television, pt. has condom cath and is patent and draining to gravity, RADHA PICC intact/ patent, safety measures continued, will continue with plan of care.
[2018-09-06 20:00] VITALS: BP 130/70
[2018-09-06] MEDS: Dyna-Hex 2% Top Sol 2oz TOPIC SCH (20:59)
[2018-09-07] VITALS: BP 128/70
[2018-09-07] MEDS: Albuterol/Ipratropium 3ml neb HHN SCH (00:48)
[2018-09-07] MEDS: Bactrim-DS 1 tab ORAL SCH ×2 (00:55→09:04)
[2018-09-07 04:00] VITALS: BP 130/82
[2018-09-07 05:13] LABS: ANION GAP 10 mmol/L (5-15); BLOOD UREA NITROGEN 30 mg/dL (7-18); CALCIUM 8.2 MG/DL (8.5-10.1); CARBON DIOXIDE 23 MMOL/L (21-32); CHLORIDE 106 MMOL/L (98-107); POTASSIUM 3.8 MMOL/L (3.5-5.1); SODIUM 138 MMOL/L (136-145)
[2018-09-07] MEDS: NovoLOG Insulin Flexpen SUBQ SCH ×4 (05:31→20:22)
[2018-09-07] MEDS: Hydrocortisone 20mg tab ORAL SCH (05:32)
--- NOTE | 2018-09-07 06:37 | General Progress Note ---
Assessment/Plan Problem List: (1) Sepsis ICD Codes: A41.9 - Sepsis, unspecified organism SNOMED: 15992842 (2) Diabetes ICD Codes: E11.9 - Type 2 diabetes mellitus without complications SNOMED: 42403342 (3) Hypothyroidism ICD Codes: E03.9 - Hypothyroidism, unspecified SNOMED: 68054232 (4) Adrenal insufficiency ICD Codes: E27.40 - Unspecified adrenocortical insufficiency SNOMED: 85517354, 955783869 (5) Abdominal distension (gaseous) ICD Codes: R14.0 - Abdominal distension (gaseous) SNOMED: 467365675 Assessment/Plan reduce Cortef to 15 mg am / 5 mg pm - which is his maintenance dose continue Levothyroxine 150 mcg qam continue NISS Subjective Allergies: Coded Allergies: No Known Allergies (Unverified , 08/22/18) All Systems: reviewed and negative except above Subjective events noted Objective Last 24 Hour Vital Signs Date Time Temp Pulse Resp B/P (MAP) Pulse Ox O2 Delivery O2 Flow Rate FiO2 09/07/18 04:00 Room Air Room Air Room Air 09/07/18 04:00 98.4 80 22 130/82 (98) 94 09/07/18 04:00 82 09/07/18 00:49 89 18 98 Room Air 09/07/18 00:40 80 18 94 Room Air 09/07/18 00:00 Room Air Room Air Room Air 09/07/18 00:00 98.5 80 20 128/70 (89) 96 09/07/18 00:00 88 09/06/18 20:10 86 18 97 Room Air 21 09/06/18 20:00 98.6 80 20 130/70 (90) 95 09/06/18 20:00 95 Room Air 21 09/06/18 20:00 83 18 95 Room Air 21 09/06/18 20:00 Room Air Room Air Room Air 09/06/18 20:00 87 09/06/18 20:00 Room Air 21 09/06/18 16:00 97.9 76 22 134/64 (87) 96 09/06/18 15:58 Room Air Room Air Room Air 09/06/18 15:33 78 09/06/18 13:52 91 20 96 Room Air 09/06/18 13:38 80 18 93 Room Air 21 09/06/18 12:00 97.0 81 18 125/71 (89) 95 09/06/18 12:00 Room Air Room Air Room Air 09/06/18 11:34 84 09/06/18 08:17 84 09/06/18 08:00 97.7 85 22 123/70 (87) 94 09/06/18 08:00 Room Air Room Air Room Air 09/06/18 07:45 77 20 97 Room Air 21 09/06/18 07:29 Room Air 21 09/06/18 07:29 96 Room Air 21 09/06/18 07:29 79 18 96 Room Air 21 Intake and Output 09/06/18 09/07/18 19:00 07:00 Intake Total 1572.0 ml 200 ml Output Total 400 ml Balance 1572.0 ml -200 ml Intake Oral 800 ml IV Total 772.0 ml 200 ml Output Urine Total 400 ml # Voids 3 # Bowel Movements 3 2 Laboratory Tests 09/06/18 11:22: Sodium Level 137, Potassium Level 3.7, Chloride Level 104, Carbon Dioxide Level 21, Anion Gap 12, Blood Urea Nitrogen 26H, Creatinine 1.9H, Estimat Glomerular Filtration Rate , Glucose Level 206#H, Calcium Level 8.0L 09/07/18 04:00: Sodium Level 138, Potassium Level 3.8, Chloride Level 106, Carbon Dioxide Level 23, Anion Gap 10, Blood Urea Nitrogen 30H, Creatinine 2.0H, Estimat Glomerular Filtration Rate , Glucose Level 80#, Calcium Level 8.2L Height (Feet): 5 Height (Inches): 7.00 Weight (Pounds): 153 General Appearance: no apparent distress Neck: normal alignment Cardiovascular: normal rate Respiratory/Chest: lungs clear Abdomen: normal bowel sounds Pelvis: normal external exam Objective Current Medications Medications (Trade) Dose Ordered Sig/Elli Route PRN Reason Start Time Stop Time Status Last Admin Dose Admin Acetaminophen (Tylenol) 650 mg Q4H PRN RECTAL Mild Pain (Pain Scale 1-3) 09/03/18 19:00 09/25/18 10:59 Chlorhexidine Gluconate (Gabriela-Hex 2%) 1 applic DAILY@1999 TOPIC 09/03/18 20:00 09/25/18 19:59 09/06/18 20:59 Dextrose (Dextrose 50%) 25 ml Q30M PRN IV Hypoglycemia 09/03/18 16:30 1/16/19 23:29 Dextrose (Dextrose 50%) 50 ml Q30M PRN IV Hypoglycemia 09/03/18 16:30 09/21/18 23:29 Guaifenesin/ Dextromethorphan (Robitussin DM Syrup) 5 ml Q6H PRN ORAL For Cough 09/03/18 20:30 09/23/18 08:29 Heparin Sodium (Porcine) (Heparin 5000 units/ml) 5,000 units EVERY 12 HOURS SUBQ 09/03/18 21:00 09/22/18 08:59 09/06/18 21:00 Hydrocortisone (Cortef) 10 mg BEFORE DINNER ORAL 09/06/18 16:30 10/06/18 16:29 09/06/18 16:37 Hydrocortisone (Cortef) 20 mg BEFORE BREAKFAST ORAL 09/06/18 06:30 10/06/18 06:29 09/07/18 05:32 Insulin Aspart (NovoLOG) BEFORE MEALS AND HS SUBQ 09/03/18 16:45 09/30/18 16:44 09/05/18 20:23 Lactobacillus Acidophilus (Culturelle) 1 tab THREE TIMES A DAY ORAL 09/07/18 09:00 10/07/18 08:59 Levothyroxine Sodium (Synthroid) 150 mcg DAILY@0630 ORAL 09/06/18 06:30 10/06/18 06:29 09/07/18 05:31 Magnesium Oxide (Mag-Ox 400mg) 400 mg THREE TIMES A DAY ORAL 09/03/18 18:00 10/01/18 17:59 09/06/18 17:45 Meropenem 1 gm/ Sodium Chloride 100 ml @ 200 mls/hr Q12HR@0600,1800 IVPB 09/03/18 18:00 09/08/18 17:59 09/07/18 05:31 Ondansetron HCl (Zofran) 4 mg Q4H PRN IVP Nausea & Vomiting 09/03/18 17:15 09/22/18 17:03 Pantoprazole (Protonix) 40 mg DAILY ORAL 09/04/18 09:00 09/24/18 08:59 09/06/18 08:50 Trimethoprim/ Sulfamethoxazole (Bactrim-DS) 2 tab Q8H ORAL 09/06/18 17:00 09/07/18 09:01 09/07/18 00:55 Trimethoprim/ Sulfamethoxazole 22 ml/Dextrose 572 ml @ 381.333 mls/hr 0000,0800,1600 IV 09/07/18 16:00 09/11/18 15:59 Voriconazole (Vfend) 200 mg Q12HR ORAL 09/03/18 21:00 09/08/18 20:59 09/06/18 20:59 Item Value Date Time Bedside Blood Glucose 90 mg/dl 09/07/18 0531 Bedside Blood Glucose 113 mg/dl 09/06/18 2058 Bedside Blood Glucose 73 mg/dl 09/06/18 1630 Bedside Blood Glucose 110 mg/dl 09/06/18 1130 Bedside Blood Glucose 72 mg/dl 09/06/18 0559 Stanford Baca MD Sep 07, 2018 06:37
--- NOTE | 2018-09-07 07:20 | NUR ---
HAND-OFF: Report given to Marlene APONTE, pt. remains stable and no s/s of acute distress noted. Addendum: 09/07/18 at 0726 by MANUELA SANCHEZ RN RN Correction to msg above report given to Quan RN, not Marlene APONTE- assignment changed.
--- NOTE | 2018-09-07 07:24 | NUR ---
HAND-OFF: Report given to Quan RN, pt. remains stable and no s/s of acute distress noted.
--- NOTE | 2018-09-07 07:40 | NUR ---
NURSE NOTES: Report received from Ranjeet Moura RN. Patient noted alert and responsive, oriented but with report that patient has episodes of forgetfulness. Denies pain. SR on the monitor. With patent and intact right upper arm PICC line.Patient removed condom catheter, incontinent bowel and bladder noted. Placed call light within reach. Placed bed on lowest position.
[2018-09-07 08:00] VITALS: BP 141/75
--- NOTE | 2018-09-07 08:14 | NUR ---
RADIOLOGY DEPT PT REFUSED CHEST X-RAY SECOND DAY IN A ROW. ONLY WILL ALLOW CT OF CHEST.-P.D.
--- NOTE | 2018-09-07 08:54 | General Progress Note ---
Assessment/Plan Problem List: (1) Sepsis ICD Codes: A41.9 - Sepsis, unspecified organism SNOMED: 52213216 (2) Diabetes ICD Codes: E11.9 - Type 2 diabetes mellitus without complications SNOMED: 73469878 (3) Adrenal insufficiency ICD Codes: E27.40 - Unspecified adrenocortical insufficiency SNOMED: 09751960, 230547029 (4) Abdominal distension (gaseous) ICD Codes: R14.0 - Abdominal distension (gaseous) SNOMED: 491919164 (5) Healthcare-associated pneumonia ICD Codes: J18.9 - Pneumonia, unspecified organism SNOMED: 911813452 (6) Anemia ICD Codes: D64.9 - Anemia, unspecified SNOMED: 839714275 Status: stable, progressing Assessment/Plan PLAN: 1. Maintain hydration. 2. Encourage oral intake with protein. will upgrade diet 3. Titrate hydrocortisone. 4. Respiratory hygiene, oxygen, and antimicrobials. 5. Transfer to step-down unit. 6. monitor CXR/IV abx 7. not ready for dc unless home abx can be arranged. 8. Ct chest today Subjective ROS Limited/Unobtainable: No Constitutional: Reports: malaise, weakness HEENT: Reports: no symptoms Cardiovascular: Reports: no symptoms Respiratory: Reports: no symptoms Gastrointestinal/Abdominal: Reports: no symptoms Genitourinary: Reports: no symptoms Neurologic/Psychiatric: Reports: no symptoms Endocrine: Reports: no symptoms Hematologic/Lymphatic: Reports: no symptoms Allergies: Coded Allergies: No Known Allergies (Unverified , 08/22/18) All Systems: reviewed and negative except above Subjective no new complaints. states he feels better. wants to go home. remains on multiple abx. no fevers going down for ct Objective Last 24 Hour Vital Signs Date Time Temp Pulse Resp B/P (MAP) Pulse Ox O2 Delivery O2 Flow Rate FiO2 09/07/18 07:03 96 Room Air 21 09/07/18 07:03 Room Air 09/07/18 04:00 Room Air Room Air Room Air 09/07/18 04:00 98.4 80 22 130/82 (98) 94 09/07/18 04:00 82 09/07/18 00:49 89 18 98 Room Air 09/07/18 00:40 80 18 94 Room Air 09/07/18 00:00 Room Air Room Air Room Air 09/07/18 00:00 98.5 80 20 128/70 (89) 96 09/07/18 00:00 88 09/06/18 20:10 86 18 97 Room Air 21 09/06/18 20:00 98.6 80 20 130/70 (90) 95 09/06/18 20:00 95 Room Air 21 09/06/18 20:00 83 18 95 Room Air 21 09/06/18 20:00 Room Air Room Air Room Air 09/06/18 20:00 87 09/06/18 20:00 Room Air 21 09/06/18 16:00 97.9 76 22 134/64 (87) 96 09/06/18 15:58 Room Air Room Air Room Air 09/06/18 15:33 78 09/06/18 13:52 91 20 96 Room Air 09/06/18 13:38 80 18 93 Room Air 21 09/06/18 12:00 97.0 81 18 125/71 (89) 95 09/06/18 12:00 Room Air Room Air Room Air 09/06/18 11:34 84 Intake and Output 09/06/18 09/07/18 19:00 07:00 Intake Total 1572.0 ml 200 ml Output Total 400 ml Balance 1572.0 ml -200 ml Intake Oral 800 ml IV Total 772.0 ml 200 ml Output Urine Total 400 ml # Voids 3 # Bowel Movements 3 2 Laboratory Tests 09/06/18 11:22: Sodium Level 137, Potassium Level 3.7, Chloride Level 104, Carbon Dioxide Level 21, Anion Gap 12, Blood Urea Nitrogen 26H, Creatinine 1.9H, Estimat Glomerular Filtration Rate , Glucose Level 206#H, Calcium Level 8.0L 09/07/18 04:00: Sodium Level 138, Potassium Level 3.8, Chloride Level 106, Carbon Dioxide Level 23, Anion Gap 10, Blood Urea Nitrogen 30H, Creatinine 2.0H, Estimat Glomerular Filtration Rate , Glucose Level 80#, Calcium Level 8.2L Height (Feet): 5 Height (Inches): 7.00 Weight (Pounds): 153 Objective General Appearance: WD/WN, alert Neck: supple Cardiovascular: regular rhythm Respiratory/Chest: lungs clear Abdomen: normal bowel sounds, non tender, soft, no organomegaly Edema: no edema noted Arm (L), no edema noted Arm (R), no edema noted Leg (L), no edema noted Leg (R), no edema noted Pedal (L), no edema noted Pedal (R), no edema noted Generalized Dennys Castro MD Sep 07, 2018 08:54
[2018-09-07] MEDS: Lactobacillus-GG tablet ORAL SCH ×3 (09:04→17:07)
[2018-09-07] MEDS: Magnesium Oxide 400mg tab ORAL SCH ×3 (09:04→17:07)
[2018-09-07] MEDS: Heparin 5000 units/ml inj SUBQ SCH ×2 (09:12→20:21)
--- NOTE | 2018-09-07 10:20 | Pulmonology Progress Note ---
Assessment/Plan Assessment/Plan IMPRESSION: 1. Malignant melanoma. 2. [place]iteau's disease. 4. S/p extubation DISCUSSION: Continue present care now on low flow nasal o2 Aj Harding M.D. Subjective Interval Events: Comfortable Constitutional: Reports: no symptoms HEENT: Repors: no symptoms Respiratory: Reports: no symptoms Cardiovascular: Reports: no symptoms Gastrointestinal/Abdominal: Reports: no symptoms Genitourinary: Reports: no symptoms Neurologic: Reports: no symptoms Allergies: Coded Allergies: No Known Allergies (Unverified , 08/22/18) Objective Last 24 Hour Vital Signs Date Time Temp Pulse Resp B/P (MAP) Pulse Ox O2 Delivery O2 Flow Rate FiO2 09/07/18 07:03 96 Room Air 09/07/18 07:03 Room Air 09/07/18 04:00 Room Air Room Air Room Air 09/07/18 04:00 98.4 80 22 130/82 (98) 94 09/07/18 04:00 82 09/07/18 00:49 89 18 98 Room Air 09/07/18 00:40 80 18 94 Room Air 09/07/18 00:00 Room Air Room Air Room Air 09/07/18 00:00 98.5 80 20 128/70 (89) 96 09/07/18 00:00 88 09/06/18 20:10 86 18 97 Room Air 09/06/18 20:00 98.6 80 20 130/70 (90) 95 09/06/18 20:00 95 Room Air 21 09/06/18 20:00 83 18 95 Room Air 09/06/18 20:00 Room Air Room Air Room Air 09/06/18 20:00 87 09/06/18 20:00 Room Air 21 09/06/18 16:00 97.9 76 22 134/64 (87) 96 09/06/18 15:58 Room Air Room Air Room Air 09/06/18 15:33 78 09/06/18 13:52 91 20 96 Room Air 09/06/18 13:38 80 18 93 Room Air 09/06/18 12:00 97.0 81 18 125/71 (89) 95 09/06/18 12:00 Room Air Room Air Room Air 09/06/18 11:34 84 Intake and Output 09/06/18 09/07/18 19:00 07:00 Intake Total 1572.0 ml 200 ml Output Total 400 ml Balance 1572.0 ml -200 ml Intake Oral 800 ml IV Total 772.0 ml 200 ml Output Urine Total 400 ml # Voids 3 # Bowel Movements 3 2 General Appearance: no acute distress HEENT: normocephalic Respiratory/Chest: chest wall non-tender, lungs clear Cardiovascular: normal peripheral pulses, normal rate Abdomen: normal bowel sounds Microbiology Date/Time Source Procedure Growth Status 09/04/18 15:30 Stool Clostridium difficile Toxin Assay - Final Complete Laboratory Tests 09/06/18 11:22: Sodium Level 137, Potassium Level 3.7, Chloride Level 104, Carbon Dioxide Level 21, Anion Gap 12, Blood Urea Nitrogen 26H, Creatinine 1.9H, Estimat Glomerular Filtration Rate , Glucose Level 206#H, Calcium Level 8.0L 09/07/18 04:00: Sodium Level 138, Potassium Level 3.8, Chloride Level 106, Carbon Dioxide Level 23, Anion Gap 10, Blood Urea Nitrogen 30H, Creatinine 2.0H, Estimat Glomerular Filtration Rate , Glucose Level 80#, Calcium Level 8.2L Current Medications Medications (Trade) Dose Ordered Sig/Elli Route PRN Reason Start Time Stop Time Status Last Admin Dose Admin Acetaminophen (Tylenol) 650 mg Q4H PRN RECTAL Mild Pain (Pain Scale 1-3) 09/03/18 19:00 09/25/18 10:59 Chlorhexidine Gluconate (Gabriela-Hex 2%) 1 applic DAILY@1999 TOPIC 09/03/18 20:00 09/25/18 19:59 09/06/18 20:59 Dextrose (Dextrose 50%) 25 ml Q30M PRN IV Hypoglycemia 09/03/18 16:30 09/21/18 23:29 Dextrose (Dextrose 50%) 50 ml Q30M PRN IV Hypoglycemia 09/03/18 16:30 09/21/18 23:29 Guaifenesin/ Dextromethorphan (Robitussin DM Syrup) 5 ml Q6H PRN ORAL For Cough 09/03/18 20:30 09/23/18 08:29 Heparin Sodium (Porcine) (Heparin 5000 units/ml) 5,000 units EVERY 12 HOURS SUBQ 09/03/18 21:00 09/22/18 08:59 09/07/18 09:12 Hydrocortisone (Cortef) 5 mg BEFORE DINNER ORAL 09/07/18 16:30 10/06/18 16:29 Hydrocortisone (Cortef) 15 mg BEFORE BREAKFAST ORAL 09/08/18 06:30 10/06/18 06:29 Insulin Aspart (NovoLOG) BEFORE MEALS AND HS SUBQ 09/03/18 16:45 09/30/18 16:44 09/05/18 20:23 Lactobacillus Acidophilus (Culturelle) 1 tab THREE TIMES A DAY ORAL 09/07/18 09:00 10/07/18 08:59 09/07/18 09:04 Levothyroxine Sodium (Synthroid) 150 mcg DAILY@0630 ORAL 09/06/18 06:30 10/06/18 06:29 09/07/18 05:31 Magnesium Oxide (Mag-Ox 400mg) 400 mg THREE TIMES A DAY ORAL 09/03/18 18:00 10/01/18 17:59 09/07/18 09:04 Meropenem 1 gm/ Sodium Chloride 100 ml @ 200 mls/hr Q12HR@0600,1800 IVPB 09/03/18 18:00 09/08/18 17:59 09/07/18 05:31 Ondansetron HCl (Zofran) 4 mg Q4H PRN IVP Nausea & Vomiting 09/03/18 17:15 09/22/18 17:03 Pantoprazole (Protonix) 40 mg DAILY ORAL 09/04/18 09:00 09/24/18 08:59 09/07/18 09:04 Trimethoprim/ Sulfamethoxazole 22 ml/Dextrose 572 ml @ 381.333 mls/hr 0000,0800,1600 IV 09/07/18 16:00 09/11/18 15:59 Voriconazole (Vfend) 200 mg Q12HR ORAL 09/03/18 21:00 09/08/18 20:59 09/07/18 09:04 Aj Harding MD Sep 07, 2018 10:20
--- NOTE | 2018-09-07 10:32 | General Surgery Progress Note ---
General Surgery-Progress Note Subjective Symptoms: improved, pain absent, tolerating diet, passing flatus Additional Comments no acute events. Objective Last 24 Hour Vital Signs Date Time Temp Pulse Resp B/P (MAP) Pulse Ox O2 Delivery O2 Flow Rate FiO2 09/07/18 07:03 96 Room Air 21 09/07/18 07:03 Room Air 09/07/18 04:00 Room Air Room Air Room Air 09/07/18 04:00 98.4 80 22 130/82 (98) 94 09/07/18 04:00 82 09/07/18 00:49 89 18 98 Room Air 09/07/18 00:40 80 18 94 Room Air 09/07/18 00:00 Room Air Room Air Room Air 09/07/18 00:00 98.5 80 20 128/70 (89) 96 09/07/18 00:00 88 09/06/18 20:10 86 18 97 Room Air 09/06/18 20:00 98.6 80 20 130/70 (90) 95 09/06/18 20:00 95 Room Air 09/06/18 20:00 83 18 95 Room Air 09/06/18 20:00 Room Air Room Air Room Air 09/06/18 20:00 87 09/06/18 20:00 Room Air 09/06/18 16:00 97.9 76 22 134/64 (87) 96 09/06/18 15:58 Room Air Room Air Room Air 09/06/18 15:33 78 09/06/18 13:52 91 20 96 Room Air 09/06/18 13:38 80 18 93 Room Air 09/06/18 12:00 97.0 81 18 125/71 (89) 95 09/06/18 12:00 Room Air Room Air Room Air 09/06/18 11:34 84 I&O Intake and Output 09/06/18 09/07/18 19:00 07:00 Intake Total 1572.0 ml 200 ml Output Total 400 ml Balance 1572.0 ml -200 ml Intake Oral 800 ml IV Total 772.0 ml 200 ml Output Urine Total 400 ml # Voids 3 # Bowel Movements 3 2 Drains: none Cardiovascular: RSR Respiratory: clear Abdomen: soft, flat, non-tender, present bowel sounds Extremities: no cyanosis Laboratory Tests Test 09/06/18 11:22 09/07/18 04:00 Sodium Level 137 MMOL/L (136-145) 138 MMOL/L (136-145) Potassium Level 3.7 MMOL/L (3.5-5.1) 3.8 MMOL/L (3.5-5.1) Chloride Level 104 MMOL/L (98-107) 106 MMOL/L (98-107) Carbon Dioxide Level 21 MMOL/L (21-32) 23 MMOL/L (21-32) Anion Gap 12 mmol/L (5-15) 10 mmol/L (5-15) Blood Urea Nitrogen 26 mg/dL (7-18) H 30 mg/dL (7-18) H Creatinine 1.9 MG/DL (0.55-1.30) H 2.0 MG/DL (0.55-1.30) H Estimat Glomerular Filtration Rate mL/min (>60) mL/min (>60) Glucose Level 206 MG/DL (74-106) #H 80 MG/DL (74-106) # Calcium Level 8.0 MG/DL (8.5-10.1) L 8.2 MG/DL (8.5-10.1) L Plan Problems: (1) Sepsis (2) Abdominal distension (gaseous) Assessment & Plan: Abdominal distention / discomfort. no n/v/f/c. +flatus. feels bloated. exam with mild distention/non tender CT - Mildly fluid-filled small bowel loops, nonspecific, No acute process otherwise, Postcholecystectomy changes. What are probably hepatic cysts adjacent to the gallbladder fossa mimics fluid in the gallbladder fossa on the axial views, but appear to be cysts on the coronal images. Nonetheless, biloma or other pathologic collection not completely excludable Multiple nonobstructive left renal calculi Sarmiento catheter Bilateral basilar pulmonary interstitial prominence, nonspecific Scoliosis and spondylosis KUB - Nonspecific prominent but not frankly dilated gas-filled small bowel loops , decreased from previous day's exam Satisfactory position right groin central venous catheter worsening respiratory status requiring intubation abdominal exam unchanged KUB okay no signs of obstruction labs improved. gas okay recovering -no acute surgical intervention planned -Rx as written -diet as tolerated -activity as tolerated -will follow clinically with exams thank you for allowing me to participate in patients care David Daley Sep 07, 2018 10:32
--- NOTE | 2018-09-07 12:00 | NUR ---
NURSE NOTES: Patient ambulated by PT and has been sitting in the chair, tolerated activity. No s/sx of distress. Patient refused vital signs check. Verbalized understanding of refusal. Patient refused CT scan of chest. Verbalized understanding of consequences of refusal. Daughter at bedside and aware of refusal. Explained current condition and importance of compliance to medications and therapy. Patient stated he will think about it. He requested to speak with and Dr. Castro was called and MD spoke with patient and daughter, Leyda Gonzalez. Leyda also approached freelance copywriter aleida to talking to Dr. Castro of request to transfer to [facility] and to remove Eryn as person to call for decision and emergency. Also spoke with Eryn with regards to situation and he confirmed that he is the DPOA and Leyda cannot decide for father and he should be called for any changes or any decision making for father. Patient and daughter eventually apologized to staff after behavior.
[2018-09-07] MEDS ORDERED: Albuterol/Ipratropium 3ml neb HHN SCH (12:30)
--- NOTE | 2018-09-07 13:53 | NUR ---
Social Work Letter stating hospitalization provided for son (left with OLMAN forester aide for son to cloth picker when visiting).
--- NOTE | 2018-09-07 14:35 | NUR ---
RD ASSESSMENT & RECOMMENDATIONS SEE CARE ACTIVITY FOR COMPLETE ASSESSMENT DAILY ESTIMATED NEEDS: Needs based on CA, DM 70.5kg 25-30 kcals/kg 0929-1793 total kcals 1-1.5 g protein/kg 71-106 g total protein 25-30 mL/kg 4020-2060 total fluid mLs NUTRITION DIAGNOSIS: 1) Swallowing difficulty R/T respiratory status as evidenced by txr to ICU, s/p intubation, now s/p extubation, NGT to LIS dc'ed, seen by TERMINAL GAUGER w/ rec for pureed moist, NTL diet, now advanced to soft easy chew, thin liquids. CURRENT DIET:REGULAR, soft easy chew/ may have coffee PO DIET RECOMMENDATIONS: LOW NA/ texture per TERMINAL GAUGER ADDITIONAL RECOMMENDATIONS: 1) Calibrated bedscale wt for accurate CBW 2) Monitor PO intake and tolerance- s/p extubation 3) Monitor lytes, replete as needed 4) Monitor BGs, need for carb controlled diet 5) A1C for eval of glycemic control . .
--- NOTE | 2018-09-07 15:18 | NUR ---
NURSE NOTES: Called Dr. Castro and made aware on the request of pt for breathing treatment. Patient not in distress, with oxygen saturation of 97% on room air. Awaiting for further orders.
--- NOTE | 2018-09-07 15:47 | Nephrology Progress Note ---
Assessment/Plan Problem List: (1) Respiratory failure (2) ROSA (acute kidney injury) (3) Sepsis (4) Adrenal insufficiency (5) Healthcare-associated pneumonia Plan cxr represent pneumonia rather than chf, will stop lasix for now, replace K, now off pressors, hydrate can dc iv now , Lm low likely prerenal, avoid over hydration dc reyes , voiding trial, lab better but may have ckd following rosa Subjective Constitutional: Reports: weakness HEENT: Reports: no symptoms Genitourinary: Reports: no symptoms Neurologic/Psychiatric: Reports: no symptoms Objective Objective Last 24 Hour Vital Signs Date Time Temp Pulse Resp B/P (MAP) Pulse Ox O2 Delivery O2 Flow Rate FiO2 09/07/18 12:00 76 09/07/18 12:00 86 09/07/18 08:00 84 09/07/18 08:00 97.7 84 22 141/75 (97) 97 09/07/18 07:03 96 Room Air 21 09/07/18 07:03 Room Air 09/07/18 04:00 Room Air Room Air Room Air 09/07/18 04:00 98.4 80 22 130/82 (98) 94 09/07/18 04:00 82 09/07/18 00:49 89 18 98 Room Air 21 09/07/18 00:40 80 18 94 Room Air 09/07/18 00:00 Room Air Room Air Room Air 09/07/18 00:00 98.5 80 20 128/70 (89) 96 09/07/18 00:00 88 09/06/18 20:10 86 18 97 Room Air 21 09/06/18 20:00 98.6 80 20 130/70 (90) 95 09/06/18 20:00 95 Room Air 21 09/06/18 20:00 83 18 95 Room Air 21 09/06/18 20:00 Room Air Room Air Room Air 09/06/18 20:00 87 09/06/18 20:00 Room Air 21 09/06/18 16:00 97.9 76 22 134/64 (87) 96 09/06/18 15:58 Room Air Room Air Room Air Intake and Output 09/06/18 09/07/18 18:59 06:59 Intake Total 772.0 ml 1000 ml Output Total 400 ml Balance 772.0 ml 600 ml Intake Oral 800 ml IV Total 772.0 ml 200 ml Output Urine Total 400 ml # Voids 3 # Bowel Movements 3 2 Laboratory Tests 09/07/18 04:00: Sodium Level 138, Potassium Level 3.8, Chloride Level 106, Carbon Dioxide Level 23, Anion Gap 10, Blood Urea Nitrogen 30H, Creatinine 2.0H, Estimat Glomerular Filtration Rate , Glucose Level 80#, Calcium Level 8.2L Height (Feet): 5 Height (Inches): 7.00 Weight (Pounds): 153 General Appearance: no apparent distress, alert EENT: normal ENT inspection Neck: normal alignment, supple Cardiovascular: regular rhythm Respiratory/Chest: lungs clear, normal breath sounds Abdomen: non tender, soft Neurologic: technician anatomic pathology II-XII grossly normal Cesar Nunez MD Sep 07, 2018 15:46
[2018-09-07 16:00] VITALS: BP 125/73
--- NOTE | 2018-09-07 16:00 | NUR ---
NURSE NOTES: Patient still sitting up in the chair. Calm and comfortable. No s/sx of distress. Denies pain. Incontinent care done, calmoseptin applied. Provided urinal. Still for collection of urine.
[2018-09-07] MEDS ORDERED: NS 275ml ONE (16:27)
[2018-09-07] MEDS ORDERED: Tubing IV Secondary IV ONE (16:27)
--- NOTE | 2018-09-07 16:33 | NUR ---
CASE MANAGEMENT: REVIEW SI: SEPSIS T 97.7 HR 84 RR 22 BP 141/75 SAT 96% ROOM AIR H/H 8.9/26.6 BUN 30 CR 2.0 IS: BACTRIM IV Q12HR MAG OX 400MG PO TID VORICONAZOLE PO Q SOLU CORTEF PO QD STEP DOWN UNIT STATUS DCP: PATIENT IS FROM HOME
[2018-09-07] MEDS: D5W IV SCH (17:11)
[2018-09-07] MEDS: SULFAMETHOXAZOLE IV SCH (17:11)
[2018-09-07] MEDS: TRIMETHOPRIM IV SCH (17:11)
[2018-09-07] MEDS ORDERED: Albuterol/Ipratropium 3ml neb HHN PRN (17:15)
--- NOTE | 2018-09-07 19:38 | NUR ---
HAND-OFF: Report given to Yvrose Obando RN. Endorsed still for collection of urine.
--- NOTE | 2018-09-07 19:39 | NUR ---
NURSE NOTES: Report received from FAY Dominique. Pt A/Ox4, forgetful at times. clinic charge nurse shows SR. Pt on RA. Shows no signs of cardiac or respiratory distress. Pt on a regular, easy chew diet. Accuchecks ACHS, skin intact. Pt has a RADHA PICC. Site is asymptomatic, shows no signs of swelling, irritation or pain on site. Urine to be collected for lab. Plan to possibly D/C by Wednesday or Wednesday. Bed in lowest position, call light within reach. Bed alarms placed. Will continue to monitor and with patients plan of care.
--- NOTE | 2018-09-07 19:53 | Infectious Diseases Prog Note ---
Assessment/Plan Assessment/Plan ASSESSMENT/PLAN: 1. 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 hcap, ? aspiration, respiratory failure, on vent, ROSA likely secondary to sepsis/hypotension, retirement steroid use - ? OI infection and pna, ? PJP (PCP), ? aspergillus, ? other, sc- chavez albicans, fungemia risk CT chest noted, s/p endotracheal lavage for respiratory sample and cultures - meropenem (08/27/18), voriconazole (08/30/18) and iv bactrim (08/31/18) - clinically much improved - oral abx soon - base line G6PD ordered, pjp/pcp sample negative - f/u on labs and serology and cultures - steroids - monitor chest x-ray, f/u chest ct ordered 2. The patient has a history of adrenal insufficiency. 3. History of melanoma in remission. 4. History of biliary sepsis, status post cholecystectomy. 5. Hypothyroidism. 6. Hypertension. 7. Diabetes. 8. History of cancer, which I believe is the melanoma. 9. Past medical history noted. 10. No known drug allergies. 11. Social history is negative. 12. Family history is negative. 13. MAR was noted. 14. Case was discussed with RN. 15. Case was discussed with Dr. Bonilla. 16. Case was discussed with the patient's family. 17. The patient was seen in the emergency room 18. The patient will need ICU care. 19. Continue treatment per primary consultants. 20. Notes and records were noted. 21. Orders were entered. 22. Case was discussed with pharmacy. 23. Skin care protocol. 24. Time spent - 45 minutes Subjective Constitutional: Denies: fever, fatigue HEENT: Denies: congestion Respiratory: Denies: shortness of breath Cardiovascular: Denies: chest pain Gastrointestinal/Abdominal: Denies: nausea, vomiting, diarrhea Genitourinary: Denies: dysuria Neurologic: Denies: headache Psychiatric: Denies: depression Skin: Denies: rash Hematologic: Denies: bleeding Musculoskeletal: Denies: pain Allergies: Coded Allergies: No Known Allergies (Unverified , 08/22/18) Objective Vital Signs Last 24 Hour Vital Signs Date Time Temp Pulse Resp B/P (MAP) Pulse Ox O2 Delivery O2 Flow Rate FiO2 1/2/19 16:00 Room Air Room Air 09/07/18 16:00 97.0 82 22 125/73 (90) 98 09/07/18 16:00 79 09/07/18 15:04 76 18 97 Room Air 21 09/07/18 14:54 78 17 96 Room Air 21 09/07/18 12:00 76 09/07/18 12:00 86 09/07/18 08:00 84 09/07/18 08:00 97.7 84 22 141/75 (97) 97 09/07/18 07:03 96 Room Air 21 09/07/18 07:03 Room Air 21 09/07/18 04:00 Room Air Room Air Room Air 09/07/18 04:00 98.4 80 22 130/82 (98) 94 09/07/18 04:00 82 09/07/18 00:49 89 18 98 Room Air 21 09/07/18 00:40 80 18 94 Room Air 09/07/18 00:00 Room Air Room Air Room Air 09/07/18 00:00 98.5 80 20 128/70 (89) 96 09/07/18 00:00 88 09/06/18 20:10 86 18 97 Room Air 21 09/06/18 20:00 98.6 80 20 130/70 (90) 95 09/06/18 20:00 95 Room Air 21 09/06/18 20:00 83 18 95 Room Air 21 09/06/18 20:00 Room Air Room Air Room Air 09/06/18 20:00 87 09/06/18 20:00 Room Air 21 Height (Feet): 5 Height (Inches): 7.00 Weight (Pounds): 153 General Appearance: no acute distress HEENT: normocephalic, atraumatic, anicteric, mucous membranes moist, PERRL Respiratory/Chest: chest wall non-tender, no accessory muscle use, crackles/ rales, rhonchi - bilaterally Cardiovascular: normal rate, regular rhythm, no gallop/murmur, no JVD Abdomen: normal bowel sounds, soft, non tender, no organomegaly, non distended Genitourinary: other - no reyes Extremities: no cyanosis Skin: no rash Neurologic/Psychiatric: senior care assistant II-XII grossly normal, alert, oriented x 3, responsive Lymphatic: no neck adenopathy Musculoskeletal: no effusion Objective CT scan of abdomen and pelvis: Impression: Mildly fluid-filled small bowel loops, nonspecific No acute process otherwise Postcholecystectomy changes. What are probably hepatic cysts adjacent to the gallbladder fossa mimics fluid in the gallbladder fossa on the axial views, but appear to be cysts on the coronal images. Nonetheless, biloma or other pathologic collection not completely excludable Multiple nonobstructive left renal calculi Reyes catheter Bilateral basilar pulmonary interstitial prominence, nonspecific Scoliosis and spondylosis Chest x-ray - nad x 2, reports noted Chest x-ray - 08/25/18 Impression: Interval worsening of aeration with development of dense airspace opacities in the medial right mid/lower lung and patchy opacities in the right upper lung concerning for multifocal pneumonia. Perihilar interstitial opacities in the left raise question for a degree of underlying congestion/fluid overload. Clinical correlation/follow-up recommended. Findings discussed with ordering physician Dr. Bonilla at time of dictation of the final report. Chest - x-ray - 08/26/18 - Procedure: XRAY Chest 1v Indication: Shortness of breath Technique: One view of the chest Comparison: 08/25/2018 Findings: Less optimal inspiration currently Extensive bilateral infiltrates versus edema appear unchanged on the right, slightly worse on the left. There may be some pleural fluid on the left. The heart size is normal Impression: Bilateral infiltrates again demonstrated, slightly worse on the left over one Chest x-ray - 08/28 - COMPARISON: Chest x-rays dated 08/27/18 FINDINGS: Lungs: Patchy perihilar opacities, which may represent pulmonary edema versus infiltrates, not significantly changed compared to the prior exam. Pleural space: Unremarkable. The costophrenic angles are sharp. No visible pneumothorax. Heart: Unremarkable. No cardiomegaly. Mediastinum: Unremarkable. Bones/joints: Unremarkable. Tubes, lines and devices: Stable positioning of the endotracheal tube and nasogastric tube. EKG leads overlie the thorax. IMPRESSION: No significant interval change in the patchy perihilar opacities, which may represent pulmonary edema versus infiltrates. Chest x-ray - 08/30/18 - FINDINGS: Lungs: Mild interstitial prominence minimally improved and slightly worsened bibasilar streaky airspace opacities. Pleural space: Unremarkable. No pneumothorax. Heart: Unremarkable. No cardiomegaly. Mediastinum: Unremarkable. Bones/joints: Unremarkable. Soft tissues: Left neck surgical clips. Tubes, lines and devices: Stable right PICC line. Interval removal of the previously seen endotracheal tube and NG tube. IMPRESSION: Mild interstitial prominence minimally improved and slightly worsened bibasilar streaky airspace opacities. Chest x-ray - 09/01 - Comparison: 08/30/2018: CT chest 08/31/2018 Findings: Heart size stable. Right-sided PICC line again noted. Interstitial and patchy bilateral airspace opacities again noted, not significant change allowing for differences in lung volumes. Small left pleural effusion. No pneumothorax. Surgical clips again noted in the left neck. Osseous structures stable. Impression: No significant interval change in the radiographic appearance of the chest compared to the prior exam allowing for differences in lung volumes. CT chest - IMPRESSION: * Bilateral predominantly perihilar nonspecific groundglass opacities may be reflective of a multifocal pneumonia. Component of edema may also be likely especially given mild smooth septal thickening. Correlate clinically. * Small bilateral pleural effusions adjacent atelectasis/consolidation in the posterior lower lobes. * Findings suggestive of anemia. 09/03/18 - FINDINGS: Lungs: Interstitial infiltration, left greater than right. Pleural space: Probable small left pleural effusion. No pneumothorax. Heart: Unremarkable. No cardiomegaly. Mediastinum: Unremarkable. Bones/joints: No acute fracture. Vasculature: Prominent aortic knob. Tubes, lines and devices: Right PICC line in the SVC. Other findings: Surgical changes left side of the neck. IMPRESSION: Interstitial infiltration, left greater than right. Microbiology Date/Time Source Procedure Growth Status 08/28/18 19:40 Blood Blood Culture - Final NO GROWTH AFTER 5 DAYS Complete 09/01/18 19:00 Sputum Induced Gram Stain - Final Complete 09/01/18 19:00 Sputum Induced Sputum Culture - Final NO GROWTH AFTER 48 HOURS Complete 09/04/18 15:30 Stool Clostridium difficile Toxin Assay - Final Complete 08/31/18 18:05 Indwelling Cath Urine Culture - Final NO GROWTH AFTER 48 HOURS Complete 08/22/18 20:30 Rectum VRE Culture - Final NO VANCOMYCIN RESISTANT ENTEROCOCCUS ... Complete 08/22/18 20:30 Rectum - Final NO CARBAPENEM-RESISTANT ENTEROBACTERI... Complete Labs Test 09/05/18 05:00 09/06/18 04:00 09/06/18 11:22 09/07/18 04:00 White Blood Count 10.6 K/UL (4.8-10.8) Red Blood Count 2.99 M/UL (4.70-6.10) Hemoglobin 8.9 G/DL (14.2-18.0) Hematocrit 26.6 % (42.0-52.0) Mean Corpuscular Volume 89 FL (80-99) Mean Corpuscular Hemoglobin 29.9 PG (27.0-31.0) Mean Corpuscular Hemoglobin Concent 33.6 G/DL (32.0-36.0) Red Cell Distribution Width 12.6 % (11.6-14.8) Platelet Count 253 K/UL (150-450) Mean Platelet Volume 7.0 FL (6.5-10.1) Neutrophils (%) (Auto) % (45.0-75.0) Lymphocytes (%) (Auto) % (20.0-45.0) Monocytes (%) (Auto) % (1.0-10.0) Eosinophils (%) (Auto) % (0.0-3.0) Basophils (%) (Auto) % (0.0-2.0) Sodium Level 141 MMOL/L (136-145) 137 MMOL/L (136-145) 138 MMOL/L (136-145) Potassium Level 3.7 MMOL/L (3.5-5.1) 3.7 MMOL/L (3.5-5.1) 3.8 MMOL/L (3.5-5.1) Chloride Level 106 MMOL/L (98-107) 104 MMOL/L (98-107) 106 MMOL/L (98-107) Carbon Dioxide Level 25 MMOL/L (21-32) 21 MMOL/L (21-32) 23 MMOL/L (21-32) Anion Gap 10 mmol/L (5-15) 12 mmol/L (5-15) 10 mmol/L (5-15) Blood Urea Nitrogen 30 mg/dL (7-18) 26 mg/dL (7-18) 30 mg/dL (7-18) Creatinine 2.0 MG/DL (0.55-1.30) 1.9 MG/DL (0.55-1.30) 2.0 MG/DL (0.55-1.30) Estimat Glomerular Filtration Rate mL/min (>60) mL/min (>60) mL/min (>60) Glucose Level 91 MG/DL (74-106) 206 MG/DL (74-106) 80 MG/DL (74-106) Calcium Level 8.2 MG/DL (8.5-10.1) 8.0 MG/DL (8.5-10.1) 8.2 MG/DL (8.5-10.1) Total Bilirubin 0.3 MG/DL (0.2-1.0) Aspartate Amino Transf (AST/SGOT) 42 U/L (15-37) Alanine Aminotransferase (ALT/SGPT) 39 U/L (12-78) Alkaline Phosphatase 67 U/L (46-116) Total Protein 6.1 G/DL (6.4-8.2) Albumin 2.3 G/DL (3.4-5.0) Globulin 3.8 g/dL Albumin/Globulin Ratio 0.6 (1.0-2.7) Pro-B-Type Natriuretic Peptide 2329 pg/mL (0-125) Laboratory Tests Test 09/07/18 04:00 Sodium Level 138 MMOL/L (136-145) Potassium Level 3.8 MMOL/L (3.5-5.1) Chloride Level 106 MMOL/L (98-107) Carbon Dioxide Level 23 MMOL/L (21-32) Anion Gap 10 mmol/L (5-15) Blood Urea Nitrogen 30 mg/dL (7-18) H Creatinine 2.0 MG/DL (0.55-1.30) H Estimat Glomerular Filtration Rate mL/min (>60) Glucose Level 80 MG/DL (74-106) # Calcium Level 8.2 MG/DL (8.5-10.1) L Current Medications Medications (Trade) Dose Ordered Sig/Elli Route PRN Reason Start Time Stop Time Status Last Admin Dose Admin Acetaminophen (Tylenol) 650 mg Q4H PRN RECTAL Mild Pain (Pain Scale 1-3) 09/03/18 19:00 09/25/18 10:59 Albuterol/ Ipratropium (Albuterol/ Ipratropium) 3 ml Q6H PRN HHN For Cough 09/07/18 17:15 09/12/18 17:14 Chlorhexidine Gluconate (Gabriela-Hex 2%) 1 applic DAILY@2000 TOPIC 09/03/18 20:00 09/25/18 19:59 09/06/18 20:59 Dextrose (Dextrose 50%) 25 ml Q30M PRN IV Hypoglycemia 09/03/18 16:30 09/21/18 23:29 Dextrose (Dextrose 50%) 50 ml Q30M PRN IV Hypoglycemia 09/03/18 16:30 09/21/18 23:29 Guaifenesin/ Dextromethorphan (Robitussin DM Syrup) 5 ml Q6H PRN ORAL For Cough 09/03/18 20:30 09/23/18 08:29 Heparin Sodium (Porcine) (Heparin 5000 units/ml) 5,000 units EVERY 12 HOURS SUBQ 09/03/18 21:00 09/22/18 08:59 09/07/18 09:12 Hydrocortisone (Cortef) 5 mg BEFORE DINNER ORAL 09/07/18 16:30 10/06/18 16:29 09/07/18 17:07 Hydrocortisone (Cortef) 15 mg BEFORE BREAKFAST ORAL 09/08/18 06:30 10/06/18 06:29 Insulin Aspart (NovoLOG) BEFORE MEALS AND HS SUBQ 09/03/18 16:45 09/30/18 16:44 09/07/18 17:18 Lactobacillus Acidophilus (Culturelle) 1 tab THREE TIMES A DAY ORAL 09/07/18 09:00 10/07/18 08:59 09/07/18 17:07 Levothyroxine Sodium (Synthroid) 150 mcg DAILY@0630 ORAL 09/06/18 06:30 10/06/18 06:29 09/07/18 05:31 Magnesium Oxide (Mag-Ox 400mg) 400 mg THREE TIMES A DAY ORAL 09/03/18 18:00 10/01/18 17:59 09/07/18 17:07 Meropenem 1 gm/ Sodium Chloride 100 ml @ 200 mls/hr Q12HR@0600,1800 IVPB 09/03/18 18:00 09/08/18 17:59 09/07/18 17:11 Ondansetron HCl (Zofran) 4 mg Q4H PRN IVP Nausea & Vomiting 09/03/18 17:15 09/22/18 17:03 Pantoprazole (Protonix) 40 mg DAILY ORAL 09/04/18 09:00 09/24/18 08:59 09/07/18 09:04 Trimethoprim/ Sulfamethoxazole 22 ml/Dextrose 572 ml @ 381.333 mls/hr 0000,0800,1600 IV 09/07/18 16:00 09/11/18 15:59 09/07/18 17:11 Voriconazole (Vfend) 200 mg Q12HR ORAL 09/07/18 21:00 09/12/18 20:59 Treasure Vargas MD Sep 07, 2018 19:53
[2018-09-07 20:00] VITALS: BP 133/68
[2018-09-07] MEDS: Dyna-Hex 2% Top Sol 2oz TOPIC SCH (20:19)
--- NOTE | 2018-09-07 21:30 | General Progress Note ---
Assessment/Plan Assessment/Plan Assessment - abnormal LFT - Melanoma - s/p cholecystectomy - Urolithiasis - Anemia, gastrocult (+) - Pneumonia - Azotemia - diarrhea - resolved Recommendations - Abx per ID - cardiology / pulmonary follow up - po diet as tolerated - follow labs and exam - EGD/colon deferred to a later date / outpatient once stable Subjective Allergies: Coded Allergies: No Known Allergies (Unverified , 08/22/18) Subjective eating OK no new complaints Diarrhea resolved Objective Last 24 Hour Vital Signs Date Time Temp Pulse Resp B/P (MAP) Pulse Ox O2 Delivery O2 Flow Rate FiO2 09/07/18 16:00 Room Air Room Air 09/07/18 16:00 97.0 82 22 125/73 (90) 98 09/07/18 16:00 79 09/07/18 15:04 76 18 97 Room Air 09/07/18 14:54 78 17 96 Room Air 21 09/07/18 12:00 76 09/07/18 12:00 86 09/07/18 08:00 84 09/07/18 08:00 97.7 84 22 141/75 (97) 97 09/07/18 07:03 96 Room Air 09/07/18 07:03 Room Air 21 09/07/18 04:00 Room Air Room Air Room Air 09/07/18 04:00 98.4 80 22 130/82 (98) 94 09/07/18 04:00 82 09/07/18 00:49 89 18 98 Room Air 21 09/07/18 00:40 80 18 94 Room Air 09/07/18 00:00 Room Air Room Air Room Air 09/07/18 00:00 98.5 80 20 128/70 (89) 96 09/07/18 00:00 88 Intake and Output 09/06/18 09/07/18 19:00 07:00 Intake Total 1572.0 ml 200 ml Output Total 400 ml Balance 1572.0 ml -200 ml Intake Oral 800 ml IV Total 772.0 ml 200 ml Output Urine Total 400 ml # Voids 3 # Bowel Movements 3 2 Laboratory Tests 09/07/18 04:00: Sodium Level 138, Potassium Level 3.8, Chloride Level 106, Carbon Dioxide Level 23, Anion Gap 10, Blood Urea Nitrogen 30H, Creatinine 2.0H, Estimat Glomerular Filtration Rate , Glucose Level 80#, Calcium Level 8.2L Height (Feet): 5 Height (Inches): 7.00 Weight (Pounds): 153 Objective Thin WM NAD NCAT supple Coars BS RR abd soft no edema non focal EliseoorrFarncisco guaman MD Sep 07, 2018 21:30
[2018-09-08 00:32] VITALS: BP 120/70
[2018-09-08] MEDS: TRIMETHOPRIM IV SCH ×2 (00:46→08:56)
[2018-09-08] MEDS: SULFAMETHOXAZOLE IV SCH ×2 (00:46→08:56)
[2018-09-08] MEDS: D5W IV SCH ×2 (00:46→08:56)
--- NOTE | 2018-09-08 02:45 | Progress Note ---
DATE: 09/07/2018 CARDIOLOGY PROGRESS NOTE SUBJECTIVE: The patient continues to have diarrhea. Appetite is improved. No nausea or vomiting noted. He is now saturating adequately at 94% to 98% on room air. He is still on multiple antibiotics. Results of sputum cultures are still pending. OBJECTIVE: VITAL SIGNS: Blood pressure 130/82, pulse 80, and respiratory rate 22. LUNGS: With bilateral rhonchi. CARDIAC: Regular rhythm and rate. Normal S1, S2. ABDOMEN: Soft. EXTREMITIES: No edema. LABORATORY AND DIAGNOSTIC DATA: Sodium 138, potassium 3.8, bicarbonate 22, BUN 30, creatinine 2. CAT scan of the chest is pending. IMPRESSION: 1. Atypical pneumonia. 2. Resolved hypoxia. 3. History of melanoma. 4. Adrenal insufficiency. 5. Recovered shock. 6. Severe protein-calorie malnutrition. 7. Acute renal failure, improved. 8. Chronic diastolic congestive heart failure. PLAN: 1. Follow up results of the cultures and CAT scan of the chest. 2. Antimicrobials per Infectious Disease consultants. 3. Maintain adequate hydration. 4. No diuresis at this time. 5. We will defer any GI workup for now. 6. Discharge planning to follow. 7. Titrate steroid therapy based on clinical parameters. Nathaniel Bonilla M.D. DR: STAR JOB#: [id number] CC:
--- NOTE | 2018-09-08 03:45 | NUR ---
NURSE NOTES: inct.of large formed br.Edis Munguia.Refused blood draw this am.
[2018-09-08] MEDS: NovoLOG Insulin Flexpen SUBQ SCH ×4 (06:09→20:48)
--- NOTE | 2018-09-08 06:30 | NUR ---
NURSE NOTES: FSBS-58,D50 IVP admin.will recheck BS after 1hr.Patient remain AAO.VSS ,Scope rhythm same.
--- NOTE | 2018-09-08 06:34 | General Progress Note ---
Assessment/Plan Problem List: (1) Sepsis ICD Codes: A41.9 - Sepsis, unspecified organism SNOMED: 37101466 (2) Diabetes ICD Codes: E11.9 - Type 2 diabetes mellitus without complications SNOMED: 29958562 (3) Hypothyroidism ICD Codes: E03.9 - Hypothyroidism, unspecified SNOMED: 41064606 (4) Adrenal insufficiency ICD Codes: E27.40 - Unspecified adrenocortical insufficiency SNOMED: 66131814, 639932197 (5) Abdominal distension (gaseous) ICD Codes: R14.0 - Abdominal distension (gaseous) SNOMED: 884803279 Assessment/Plan continue Cortef to 15 mg am / 5 mg pm - which is his maintenance dose continue Levothyroxine 150 mcg qam continue NISS - lower dosage Subjective Allergies: Coded Allergies: No Known Allergies (Unverified , 08/22/18) All Systems: reviewed and negative except above Subjective events noted hypoglycemia this morning due to Novolog coverage at bedtime Objective Last 24 Hour Vital Signs Date Time Temp Pulse Resp B/P (MAP) Pulse Ox O2 Delivery O2 Flow Rate FiO2 09/08/18 04:00 86 09/08/18 04:00 74 09/08/18 04:00 Room Air Room Air 09/08/18 00:32 97.8 75 20 120/70 (87) 97 09/08/18 00:00 78 09/08/18 00:00 Room Air Room Air 09/07/18 21:42 Room Air 09/07/18 21:42 98 Room Air 21 09/07/18 20:00 79 09/07/18 20:00 Room Air Room Air 09/07/18 20:00 97.4 84 20 133/68 (89) 99 09/07/18 20:00 Room Air Room Air 09/07/18 16:00 Room Air Room Air 09/07/18 16:00 97.0 82 22 125/73 (90) 98 09/07/18 16:00 79 09/07/18 15:04 76 18 97 Room Air 09/07/18 14:54 78 17 96 Room Air 21 09/07/18 12:00 76 09/07/18 12:00 86 09/07/18 08:00 84 09/07/18 08:00 97.7 84 22 141/75 (97) 97 09/07/18 07:03 96 Room Air 21 09/07/18 07:03 Room Air 21 Intake and Output 09/07/18 09/08/18 19:00 07:00 Intake Total 762.666 ml 652 ml Output Total 200 ml Balance 762.666 ml 452 ml Intake Oral 80 ml IV Total 762.666 ml 572 ml Output Urine Total 200 ml Height (Feet): 5 Height (Inches): 7.00 Weight (Pounds): 153 General Appearance: no apparent distress Neck: normal alignment Cardiovascular: normal rate Respiratory/Chest: decreased breath sounds Abdomen: normal bowel sounds Pelvis: normal external exam Edema: no edema noted Arm (L), no edema noted Arm (R), no edema noted Leg (L), no edema noted Leg (R), no edema noted Pedal (L), no edema noted Pedal (R), no edema noted Generalized Objective Current Medications Medications (Trade) Dose Ordered Sig/Elli Route PRN Reason Start Time Stop Time Status Last Admin Dose Admin Acetaminophen (Tylenol) 650 mg Q4H PRN RECTAL Mild Pain (Pain Scale 1-3) 09/03/18 19:00 09/25/18 10:59 Albuterol/ Ipratropium (Albuterol/ Ipratropium) 3 ml Q6H PRN HHN For Cough 09/07/18 17:15 09/12/18 17:14 Chlorhexidine Gluconate (Gabriela-Hex 2%) 1 applic DAILY@1999 TOPIC 09/03/18 20:00 09/25/18 19:59 09/07/18 20:19 Dextrose (Dextrose 50%) 25 ml Q30M PRN IV Hypoglycemia 09/03/18 16:30 09/21/18 23:29 Dextrose (Dextrose 50%) 50 ml Q30M PRN IV Hypoglycemia 09/03/18 16:30 09/21/18 23:29 09/08/18 06:21 Guaifenesin/ Dextromethorphan (Robitussin DM Syrup) 5 ml Q6H PRN ORAL For Cough 09/03/18 20:30 09/23/18 08:29 Heparin Sodium (Porcine) (Heparin 5000 units/ml) 5,000 units EVERY 12 HOURS SUBQ 09/03/18 21:00 09/22/18 08:59 09/07/18 20:21 Hydrocortisone (Cortef) 5 mg BEFORE DINNER ORAL 09/07/18 16:30 10/06/18 16:29 09/07/18 17:07 Hydrocortisone (Cortef) 15 mg BEFORE BREAKFAST ORAL 09/08/18 06:30 10/06/18 06:29 09/08/18 06:07 Insulin Aspart (NovoLOG) BEFORE MEALS AND HS SUBQ 09/03/18 16:45 09/30/18 16:44 09/07/18 20:22 Lactobacillus Acidophilus (Culturelle) 1 tab THREE TIMES A DAY ORAL 09/07/18 09:00 10/07/18 08:59 09/07/18 17:07 Levothyroxine Sodium (Synthroid) 150 mcg DAILY@0630 ORAL 09/06/18 06:30 10/06/18 06:29 09/08/18 06:07 Magnesium Oxide (Mag-Ox 400mg) 400 mg THREE TIMES A DAY ORAL 09/03/18 18:00 10/01/18 17:59 09/07/18 17:07 Meropenem 1 gm/ Sodium Chloride 100 ml @ 200 mls/hr Q12HR@0600,1800 IVPB 09/08/18 06:00 09/13/18 05:59 09/08/18 05:57 Ondansetron HCl (Zofran) 4 mg Q4H PRN IVP Nausea & Vomiting 09/03/18 17:15 09/22/18 17:03 Pantoprazole (Protonix) 40 mg DAILY ORAL 09/04/18 09:00 09/24/18 08:59 09/07/18 09:04 Trimethoprim/ Sulfamethoxazole 22 ml/Dextrose 572 ml @ 381.333 mls/hr 0000,0800,1600 IV 09/07/18 16:00 09/11/18 15:59 09/08/18 00:46 Voriconazole (Vfend) 200 mg Q12HR ORAL 09/07/18 21:00 09/12/18 20:59 09/07/18 20:19 Item Value Date Time Bedside Blood Glucose 58 mg/dl L 09/08/18 0621 Bedside Blood Glucose 122 mg/dl H 09/07/18 2100 Bedside Blood Glucose 126 mg/dl H 09/07/18 [id number] Stanford Baca MD Sep 08, 2018 06:34
--- NOTE | 2018-09-08 07:00 | NUR ---
NURSE NOTES: Report given by sasha
--- NOTE | 2018-09-08 07:01 | NUR ---
Patient is alert awake, mostly oriented, able to ask questions and follow commands. Has episodes of confusion. Post extubation from ICU. Has PICC , full code, on High alert for fall risk, sinus rhythm, on roomair, on regular diet, ambulates with PT, incontinent, redness in the joyce area, has refused lab draws today, Will continue to monitor.
--- NOTE | 2018-09-08 07:32 | NUR ---
HAND-OFF: Report given to FAY RAMIREZ.
--- NOTE | 2018-09-08 07:45 | Pulmonology Progress Note ---
Assessment/Plan Assessment/Plan IMPRESSION: 1. Malignant melanoma. 2. Ochiltree's disease. 4. S/p extubation DISCUSSION: Continue present care now on low flow nasal o2 saturating well on RA as well Aj Harding M.D. Subjective Interval Events: No new problems; saturating well onRA Constitutional: Reports: no symptoms HEENT: Repors: no symptoms Respiratory: Reports: no symptoms Cardiovascular: Reports: no symptoms Gastrointestinal/Abdominal: Reports: no symptoms Genitourinary: Reports: no symptoms Allergies: Coded Allergies: No Known Allergies (Unverified , 08/22/18) Objective Last 24 Hour Vital Signs Date Time Temp Pulse Resp B/P (MAP) Pulse Ox O2 Delivery O2 Flow Rate FiO2 09/08/18 04:00 86 09/08/18 04:00 74 09/08/18 04:00 Room Air Room Air 09/08/18 00:32 97.8 75 20 120/70 (87) 97 09/08/18 00:00 78 09/08/18 00:00 Room Air Room Air 09/07/18 21:42 Room Air 21 09/07/18 21:42 98 Room Air 21 09/07/18 20:00 79 09/07/18 20:00 Room Air Room Air 09/07/18 20:00 97.4 84 20 133/68 (89) 99 09/07/18 20:00 Room Air Room Air 09/07/18 16:00 Room Air Room Air 09/07/18 16:00 97.0 82 22 125/73 (90) 98 09/07/18 16:00 79 09/07/18 15:04 76 18 97 Room Air 21 09/07/18 14:54 78 17 96 Room Air 21 09/07/18 12:00 76 09/07/18 12:00 86 09/07/18 08:00 84 09/07/18 08:00 97.7 84 22 141/75 (97) 97 Intake and Output 09/07/18 09/08/18 19:00 07:00 Intake Total 762.666 ml 812 ml Output Total 200 ml Balance 762.666 ml 612 ml Intake Oral 140 ml IV Total 762.666 ml 672 ml Output Urine Total 200 ml # Bowel Movements 1 General Appearance: no acute distress HEENT: normocephalic Respiratory/Chest: chest wall non-tender, lungs clear Cardiovascular: normal peripheral pulses, normal rate Abdomen: normal bowel sounds Laboratory Tests 09/08/18 06:15: Urine Random Sodium 92 Current Medications Medications (Trade) Dose Ordered Sig/Elli Route PRN Reason Start Time Stop Time Status Last Admin Dose Admin Acetaminophen (Tylenol) 650 mg Q4H PRN RECTAL Mild Pain (Pain Scale 1-3) 09/03/18 19:00 09/25/18 10:59 Albuterol/ Ipratropium (Albuterol/ Ipratropium) 3 ml Q6H PRN HHN For Cough 09/07/18 17:15 09/12/18 17:14 Chlorhexidine Gluconate (Gabriela-Hex 2%) 1 applic DAILY@2000 TOPIC 09/03/18 20:00 09/25/18 19:59 09/07/18 20:19 Dextrose (Dextrose 50%) 25 ml Q30M PRN IV Hypoglycemia 09/03/18 16:30 09/21/18 23:29 Dextrose (Dextrose 50%) 50 ml Q30M PRN IV Hypoglycemia 09/03/18 16:30 09/21/18 23:29 09/08/18 06:21 Guaifenesin/ Dextromethorphan (Robitussin DM Syrup) 5 ml Q6H PRN ORAL For Cough 09/03/18 20:30 09/23/18 08:29 Heparin Sodium (Porcine) (Heparin 5000 units/ml) 5,000 units EVERY 12 HOURS SUBQ 09/03/18 21:00 09/22/18 08:59 09/07/18 20:21 Hydrocortisone (Cortef) 5 mg BEFORE DINNER ORAL 09/07/18 16:30 10/06/18 16:29 09/07/18 17:07 Hydrocortisone (Cortef) 15 mg BEFORE BREAKFAST ORAL 09/08/18 06:30 10/06/18 06:29 09/08/18 06:07 Insulin Aspart (NovoLOG) BEFORE MEALS AND HS SUBQ 09/08/18 11:30 09/30/18 16:44 Lactobacillus Acidophilus (Culturelle) 1 tab THREE TIMES A DAY ORAL 09/07/18 09:00 10/07/18 08:59 09/07/18 17:07 Levothyroxine Sodium (Synthroid) 150 mcg DAILY@0630 ORAL 09/06/18 06:30 10/06/18 06:29 09/08/18 06:07 Magnesium Oxide (Mag-Ox 400mg) 400 mg THREE TIMES A DAY ORAL 09/03/18 18:00 10/01/18 17:59 09/07/18 17:07 Meropenem 1 gm/ Sodium Chloride 100 ml @ 200 mls/hr Q12HR@0600,1800 IVPB 09/08/18 06:00 09/13/18 05:59 09/08/18 05:57 Ondansetron HCl (Zofran) 4 mg Q4H PRN IVP Nausea & Vomiting 09/03/18 17:15 09/22/18 17:03 Pantoprazole (Protonix) 40 mg DAILY ORAL 09/04/18 09:00 09/24/18 08:59 09/07/18 09:04 Trimethoprim/ Sulfamethoxazole 22 ml/Dextrose 572 ml @ 381.333 mls/hr 0000,0800,1600 IV 09/07/18 16:00 09/11/18 15:59 09/08/18 00:46 Voriconazole (Vfend) 200 mg Q12HR ORAL 09/07/18 21:00 09/12/18 20:59 09/07/18 20:19 Aj Harding MD Sep 08, 2018 07:45
[2018-09-08 08:00] VITALS: BP 134/72
[2018-09-08] MEDS: Magnesium Oxide 400mg tab ORAL SCH ×3 (08:57→18:00)
[2018-09-08] MEDS: Lactobacillus-GG tablet ORAL SCH ×3 (08:57→18:00)
[2018-09-08] MEDS: Heparin 5000 units/ml inj SUBQ SCH ×2 (08:58→20:47)
--- NOTE | 2018-09-08 11:01 | General Progress Note ---
Assessment/Plan Assessment/Plan Assessment - abnormal LFT - Melanoma - s/p cholecystectomy - Urolithiasis - Anemia, gastrocult (+) - Pneumonia - Azotemia - diarrhea - presumed abx related Recommendations - Abx per ID - cardiology / pulmonary follow up - po diet as tolerated - follow labs and exam - EGD/colon deferred to a later date / outpatient, once stable Subjective Allergies: Coded Allergies: No Known Allergies (Unverified , 08/22/18) Subjective eating OK Diarrhea returned again today walking with PT Objective Last 24 Hour Vital Signs Date Time Temp Pulse Resp B/P (MAP) Pulse Ox O2 Delivery O2 Flow Rate FiO2 09/08/18 08:00 Room Air Room Air 09/08/18 08:00 97.7 75 20 134/72 (92) 97 09/08/18 07:50 78 09/08/18 04:00 86 09/08/18 04:00 74 09/08/18 04:00 Room Air Room Air 09/08/18 00:32 97.8 75 20 120/70 (87) 97 09/08/18 00:00 78 09/08/18 00:00 Room Air Room Air 09/07/18 21:42 Room Air 21 09/07/18 21:42 98 Room Air 21 09/07/18 20:00 79 09/07/18 20:00 Room Air Room Air 09/07/18 20:00 97.4 84 20 133/68 (89) 99 09/07/18 20:00 Room Air Room Air 09/07/18 16:00 Room Air Room Air 09/07/18 16:00 97.0 82 22 125/73 (90) 98 09/07/18 16:00 79 09/07/18 15:04 76 18 97 Room Air 21 09/07/18 14:54 78 17 96 Room Air 21 09/07/18 12:00 76 09/07/18 12:00 86 Intake and Output 09/07/18 09/08/18 19:00 07:00 Intake Total 762.666 ml 812 ml Output Total 200 ml Balance 762.666 ml 612 ml Intake Oral 140 ml IV Total 762.666 ml 672 ml Output Urine Total 200 ml # Bowel Movements 1 Laboratory Tests 09/08/18 06:15: Urine Random Sodium 92 Height (Feet): 5 Height (Inches): 7.00 Weight (Pounds): 154 Objective Thin WM NAD NCAT supple Coars BS RR abd soft no edema non focal Francisco Delgadillo MD Sep 08, 2018 11:01
[2018-09-08 12:00] VITALS: BP 124/68
--- NOTE | 2018-09-08 12:10 | NUR ---
Rehab/PT Weekly Progress Notes: Pt progressing well during the course of therapy this past week as evidenced by increased improved functional mobility performance and tolerance. Pt currently require MIN A x 1 and verbal cues for Bed Mobilities and Transfer Mobilities . Pt able to ambulate and tolerate average distance of 75 ft using the FWW and MIN A x 1. Pt. continue to be limited by generalized weakness and uncontrolled BM however has been cooperative provided with encouragement. Will continue with POC. Recommend SNF for further rehab VS home with P.T depending on progress.
--- NOTE | 2018-09-08 13:05 | NUR ---
ST NOTE: ST WEEKLY PT ONLY SEEN FOR 1 VISIT. PER MD NOTE, PT IS TOLERATING DIET AND DIET IS CHANGED TO SOFT, EASY CHEW WITH THIN LIQUIDS. CONTINUE SKILLED ST SERVICE.
--- NOTE | 2018-09-08 13:24 | General Surgery Progress Note ---
General Surgery-Progress Note Subjective Additional Comments has some abdominal discomfort. feels meds causing discomfort. no n/v/f/c. tolerating diet. +BM Objective Last 24 Hour Vital Signs Date Time Temp Pulse Resp B/P (MAP) Pulse Ox O2 Delivery O2 Flow Rate FiO2 09/08/18 08:00 Room Air Room Air 09/08/18 08:00 97.7 75 20 134/72 (92) 97 09/08/18 07:50 78 09/08/18 04:00 86 09/08/18 04:00 74 09/08/18 04:00 Room Air Room Air 09/08/18 00:32 97.8 75 20 120/70 (87) 97 09/08/18 00:00 78 09/08/18 00:00 Room Air Room Air 09/07/18 21:42 Room Air 21 09/07/18 21:42 98 Room Air 21 09/07/18 20:00 79 09/07/18 20:00 Room Air Room Air 09/07/18 20:00 97.4 84 20 133/68 (89) 99 09/07/18 20:00 Room Air Room Air 09/07/18 16:00 Room Air Room Air 09/07/18 16:00 97.0 82 22 125/73 (90) 98 09/07/18 16:00 79 09/07/18 15:04 76 18 97 Room Air 21 09/07/18 14:54 78 17 96 Room Air 21 I&O Intake and Output 09/07/18 09/08/18 19:00 07:00 Intake Total 762.666 ml 812 ml Output Total 200 ml Balance 762.666 ml 612 ml Intake Oral 140 ml IV Total 762.666 ml 672 ml Output Urine Total 200 ml # Bowel Movements 1 Drains: none Cardiovascular: RSR Respiratory: clear Abdomen: soft, flat, non-tender, present bowel sounds Extremities: no cyanosis Laboratory Tests Test 09/08/18 06:15 Urine Random Sodium 92 mmol/L (20-110) Plan Problems: (1) Sepsis (2) Abdominal distension (gaseous) Assessment & Plan: Abdominal distention / discomfort. no n/v/f/c. +flatus. feels bloated. exam with mild distention/non tender CT - Mildly fluid-filled small bowel loops, nonspecific, No acute process otherwise, Postcholecystectomy changes. What are probably hepatic cysts adjacent to the gallbladder fossa mimics fluid in the gallbladder fossa on the axial views, but appear to be cysts on the coronal images. Nonetheless, biloma or other pathologic collection not completely excludable Multiple nonobstructive left renal calculi Sarmiento catheter Bilateral basilar pulmonary interstitial prominence, nonspecific Scoliosis and spondylosis KUB - Nonspecific prominent but not frankly dilated gas-filled small bowel loops , decreased from previous day's exam Satisfactory position right groin central venous catheter worsening respiratory status requiring intubation abdominal exam unchanged KUB okay no signs of obstruction labs improved. gas okay recovering -no acute surgical intervention planned -Rx as written -diet as tolerated -activity as tolerated -will follow clinically with exams -d/c planning -okay to d/c from surgical standpoint thank you for allowing me to participate in patients care David Daley Sep 08, 2018 13:24
[2018-09-08 13:48] LABS: ALANINE AMINOTRANSFERASE 31 U/L (12-78); ALBUMIN 2.6 G/DL (3.4-5.0); ALBUMIN/GLOBULIN RATIO 0.6 (1.0-2.7); ALKALINE PHOSPHATASE 82 U/L (46-116); ANION GAP 11 mmol/L (5-15); ASPARTATE AMINO TRANSFERASE 28 U/L (15-37); BILIRUBIN,TOTAL 0.2 MG/DL (0.2-1.0); BLOOD UREA NITROGEN 30 mg/dL (7-18); CALCIUM 8.4 MG/DL (8.5-10.1); CARBON DIOXIDE 22 MMOL/L (21-32); CHLORIDE 103 MMOL/L (98-107); CREATININE 2.3 MG/DL (0.55-1.30); POTASSIUM 4.4 MMOL/L (3.5-5.1); SODIUM 135 MMOL/L (136-145)
[2018-09-08 13:50] LABS: HEMATOCRIT 28.8 % (42.0-52.0); HEMOGLOBIN 9.6 G/DL (14.2-18.0); MEAN CORPUSCULAR VOLUME 90 FL (80-99); PLATELET COUNT 296 K/UL (150-450); RED BLOOD COUNT 3.21 M/UL (4.70-6.10); RED CELL DISTRIBUTION WIDTH 12.7 % (11.6-14.8); WHITE BLOOD COUNT 11.4 K/UL (4.8-10.8)
--- NOTE | 2018-09-08 14:14 | NUR ---
CASE MANAGEMENT:REVIEW 09/08/17 SI: PNA. ACUTE RENAL FAILURE 96.8 79 20 124/68 97% ON RA WBC+11.4 BUN+30 CR+2.3 IS: IV MEROPENEM Q12 IV BACTRIM TID : STEP DOWN UNIT DCP; PATIENT IS FROM HOME
--- NOTE | 2018-09-08 15:58 | Nephrology Progress Note ---
Assessment/Plan Problem List: (1) Respiratory failure (2) ROSA (acute kidney injury) (3) Sepsis (4) Adrenal insufficiency (5) Healthcare-associated pneumonia Plan cxr represent pneumonia rather than chf, will stop lasix for now, replace K, now off pressors, hydrate can dc iv now , Lm low likely prerenal, avoid over hydration dc reyes , voiding trial, lab better but may have ckd following rosa, creatinine slight rise to 2,3 observe with oral hydration Subjective Constitutional: Reports: weakness HEENT: Reports: no symptoms Genitourinary: Reports: no symptoms Neurologic/Psychiatric: Reports: no symptoms Objective Objective Last 24 Hour Vital Signs Date Time Temp Pulse Resp B/P (MAP) Pulse Ox O2 Delivery O2 Flow Rate FiO2 09/08/18 12:00 Room Air Room Air 09/08/18 12:00 79 09/08/18 12:00 96.8 81 20 124/68 (86) 97 09/08/18 08:00 Room Air Room Air 09/08/18 08:00 97.7 75 20 134/72 (92) 97 09/08/18 07:56 Room Air 21 09/08/18 07:55 97 Room Air 21 09/08/18 07:50 78 09/08/18 04:00 86 09/08/18 04:00 74 09/08/18 04:00 Room Air Room Air 09/08/18 00:32 97.8 75 20 120/70 (87) 97 09/08/18 00:00 78 09/08/18 00:00 Room Air Room Air 09/07/18 21:42 Room Air 21 09/07/18 21:42 98 Room Air 21 09/07/18 20:00 79 09/07/18 20:00 Room Air Room Air 09/07/18 20:00 97.4 84 20 133/68 (89) 99 09/07/18 20:00 Room Air Room Air 09/07/18 16:00 Room Air Room Air 09/07/18 16:00 97.0 82 22 125/73 (90) 98 09/07/18 16:00 79 Intake and Output 09/07/18 09/08/18 18:59 06:59 Intake Total 481.333 ml 1093.333 ml Output Total 200 ml Balance 481.333 ml 893.333 ml Intake Oral 140 ml IV Total 481.333 ml 953.333 ml Output Urine Total 200 ml # Bowel Movements 1 Laboratory Tests 09/08/18 06:15: Urine Random Sodium 92 09/08/18 13:20: White Blood Count 11.4H, Red Blood Count 3.21L, Hemoglobin 9.6L, Hematocrit 28.8L, Mean Corpuscular Volume 90, Mean Corpuscular Hemoglobin 29.9, Mean Corpuscular Hemoglobin Concent 33.3, Red Cell Distribution Width 12.7, Platelet Count 296, Mean Platelet Volume 6.0L, Neutrophils (%) (Auto) , Lymphocytes (%) ( Auto) , Monocytes (%) (Auto) , Eosinophils (%) (Auto) , Basophils (%) (Auto) , Differential Total Cells Counted 100, Neutrophils % (Manual) 81H, Lymphocytes % (Manual) 9L, Monocytes % (Manual) 10, Eosinophils % (Manual) 0, Basophils % ( Manual) 0, Band Neutrophils 0, Platelet Estimate Adequate, Platelet Morphology Normal, Hypochromasia 1+, Sodium Level 135L, Potassium Level 4.4, Chloride Level 103, Carbon Dioxide Level 22, Anion Gap 11, Blood Urea Nitrogen 30H, Creatinine 2.3H, Estimat Glomerular Filtration Rate , Glucose Level 111H, Calcium Level 8.4L, Magnesium Level 2.1, Total Bilirubin 0.2, Aspartate Amino Transf (AST/SGOT) 28, Alanine Aminotransferase (ALT/SGPT) 31, Alkaline Phosphatase 82, Total Protein 6.7, Albumin 2.6L, Globulin 4.1, Albumin/Globulin Ratio 0.6L Height (Feet): 5 Height (Inches): 7.00 Weight (Pounds): 154 General Appearance: no apparent distress, alert EENT: normal ENT inspection Neck: normal alignment Cardiovascular: normal rate, regular rhythm Respiratory/Chest: lungs clear, normal breath sounds Abdomen: non tender, soft Neurologic: oil field technician II-XII grossly normal Cesar Nunez MD Sep 08, 2018 15:58
[2018-09-08 16:00] VITALS: BP 130/71
[2018-09-08 20:00] VITALS: BP 145/85
--- NOTE | 2018-09-08 20:00 | NUR ---
NURSE NOTES: Received patient from [place] APONTE. Patient is observed in bed, watching tv, awake, alert, oriented, and able to make needs known. No complains of pain and/or discomfort. RADHA PICC asymptomatic, patent, and intact. IV fluid is running on a prescribed rate. Bed is in lowest position with side rails up x2 and brakes are engaged. Bed alarm is on. Encouraged patient to use call light when in need of assistance; patient verbalized understanding. Will continue to monitor.
[2018-09-08] MEDS: Dyna-Hex 2% Top Sol 2oz TOPIC SCH (20:45)
[2018-09-08] MEDS ORDERED: D5W IV SCH (21:00)
[2018-09-08] MEDS ORDERED: TRIMETHOPRIM IV SCH (21:00)
[2018-09-08] MEDS ORDERED: SULFAMETHOXAZOLE IV SCH (21:00)
[2018-09-09] VITALS: BP 137/78
--- NOTE | 2018-09-09 01:30 | NUR ---
NURSE NOTES: Patient is asleep but arousable by voice. SR on the monitor. VSS. Cleaned patient, blanchable redness on sacral. No skin tear noted. Will continue to monitor.
[2018-09-09 04:00] VITALS: BP 128/64
--- NOTE | 2018-09-09 04:00 | NUR ---
NURSE NOTES: Patient is asleep but arousable by voice. No s/s of acute distress. VSS. Will continue to monitor.
[2018-09-09] MEDS: NovoLOG Insulin Flexpen SUBQ SCH ×2 (05:43→11:30)
--- NOTE | 2018-09-09 07:41 | NUR ---
NURSE NOTES: Report received from FAY Vega. Patient seen in bed in arndt position. Alert, verbally responsive, no S/Sx of pain is noted at this time. No respiratory distress noted at this time, currently on room air. PICC line to right upper arm is intact. IVF of NS is running at 100ml/HR at this time. Bed is in lowest position, Call light is within reach while in room. will continue to monitor.
--- NOTE | 2018-09-09 07:41 | Pulmonology Progress Note ---
Assessment/Plan Assessment/Plan IMPRESSION: 1. Malignant melanoma. 2. Dar[place]'s disease. 4. S/p extubation DISCUSSION: Continue present care now on low flow nasal o2 saturating well on RA as well continues to improve Aj Harding M.D. Subjective Interval Events: None reported; feeling well Constitutional: Reports: no symptoms HEENT: Repors: no symptoms Respiratory: Reports: no symptoms Cardiovascular: Reports: no symptoms Gastrointestinal/Abdominal: Reports: no symptoms Genitourinary: Reports: no symptoms Neurologic: Reports: no symptoms Allergies: Coded Allergies: No Known Allergies (Unverified , 08/22/18) Objective Last 24 Hour Vital Signs Date Time Temp Pulse Resp B/P (MAP) Pulse Ox O2 Delivery O2 Flow Rate FiO2 09/09/18 04:00 Room Air Room Air 09/09/18 04:00 97.7 74 20 128/64 (85) 100 09/09/18 03:14 72 09/09/18 00:00 Room Air Room Air 09/09/18 00:00 98.2 79 20 137/78 (97) 97 09/08/18 23:17 67 09/08/18 21:01 Room Air 21 09/08/18 21:01 80 18 Room Air 21 09/08/18 21:01 97 Room Air 21 09/08/18 20:11 Room Air Room Air 09/08/18 20:00 98.0 82 20 145/85 (105) 97 09/08/18 19:33 79 09/08/18 16:00 79 09/08/18 16:00 97.3 77 20 130/71 (90) 97 09/08/18 16:00 Room Air Room Air 09/08/18 12:00 Room Air Room Air 09/08/18 12:00 79 09/08/18 12:00 96.8 81 20 124/68 (86) 97 09/08/18 08:00 Room Air Room Air 09/08/18 08:00 97.7 75 20 134/72 (92) 97 09/08/18 07:56 Room Air 09/08/18 07:55 97 Room Air 21 09/08/18 07:50 78 Intake and Output 09/08/18 09/09/18 19:00 07:00 Intake Total 602 ml 1762.666 ml Output Total 400 ml Balance 602 ml 1362.666 ml Intake Oral 602 ml IV Total 1762.666 ml Output Urine Total 400 ml # Bowel Movements 4 1 General Appearance: no acute distress HEENT: normocephalic Respiratory/Chest: chest wall non-tender, lungs clear Cardiovascular: normal peripheral pulses, normal rate Abdomen: normal bowel sounds, soft, non tender Laboratory Tests 09/08/18 13:20: White Blood Count 11.4H, Red Blood Count 3.21L, Hemoglobin 9.6L, Hematocrit 28.8L, Mean Corpuscular Volume 90, Mean Corpuscular Hemoglobin 29.9, Mean Corpuscular Hemoglobin Concent 33.3, Red Cell Distribution Width 12.7, Platelet Count 296, Mean Platelet Volume 6.0L, Neutrophils (%) (Auto) , Lymphocytes (%) ( Auto) , Monocytes (%) (Auto) , Eosinophils (%) (Auto) , Basophils (%) (Auto) , Differential Total Cells Counted 100, Neutrophils % (Manual) 81H, Lymphocytes % (Manual) 9L, Monocytes % (Manual) 10, Eosinophils % (Manual) 0, Basophils % ( Manual) 0, Band Neutrophils 0, Platelet Estimate Adequate, Platelet Morphology Normal, Hypochromasia 1+, Sodium Level 135L, Potassium Level 4.4, Chloride Level 103, Carbon Dioxide Level 22, Anion Gap 11, Blood Urea Nitrogen 30H, Creatinine 2.3H, Estimat Glomerular Filtration Rate , Glucose Level 111H, Calcium Level 8.4L, Magnesium Level 2.1, Total Bilirubin 0.2, Aspartate Amino Transf (AST/SGOT) 28, Alanine Aminotransferase (ALT/SGPT) 31, Alkaline Phosphatase 82, Total Protein 6.7, Albumin 2.6L, Globulin 4.1, Albumin/Globulin Ratio 0.6L Current Medications Medications (Trade) Dose Ordered Sig/Elli Route PRN Reason Start Time Stop Time Status Last Admin Dose Admin Acetaminophen (Tylenol) 650 mg Q4H PRN RECTAL Mild Pain (Pain Scale 1-3) 09/03/18 19:00 09/25/18 10:59 Albuterol/ Ipratropium (Albuterol/ Ipratropium) 3 ml Q6H PRN HHN For Cough 09/07/18 17:15 09/12/18 17:14 Chlorhexidine Gluconate (Gabriela-Hex 2%) 1 applic DAILY@2000 TOPIC 09/03/18 20:00 09/25/18 19:59 09/08/18 20:45 Dextrose (Dextrose 50%) 25 ml Q30M PRN IV Hypoglycemia 09/03/18 16:30 09/21/18 23:29 Dextrose (Dextrose 50%) 50 ml Q30M PRN IV Hypoglycemia 09/03/18 16:30 09/21/18 23:29 09/08/18 06:21 Guaifenesin/ Dextromethorphan (Robitussin DM Syrup) 5 ml Q6H PRN ORAL For Cough 09/03/18 20:30 09/23/18 08:29 Heparin Sodium (Porcine) (Heparin 5000 units/ml) 5,000 units EVERY 12 HOURS SUBQ 09/03/18 21:00 09/22/18 08:59 09/08/18 20:47 Hydrocortisone (Cortef) 5 mg BEFORE DINNER ORAL 09/07/18 16:30 10/06/18 16:29 09/08/18 16:30 Hydrocortisone (Cortef) 15 mg BEFORE BREAKFAST ORAL 09/08/18 06:30 10/06/18 06:29 09/09/18 05:40 Insulin Aspart (NovoLOG) BEFORE MEALS AND HS SUBQ 09/08/18 11:30 09/30/18 16:44 Lactobacillus Acidophilus (Culturelle) 1 tab THREE TIMES A DAY ORAL 09/07/18 09:00 10/07/18 08:59 09/08/18 18:00 Levothyroxine Sodium (Synthroid) 150 mcg DAILY@0630 ORAL 09/06/18 06:30 10/06/18 06:29 09/09/18 05:40 Magnesium Oxide (Mag-Ox 400mg) 400 mg THREE TIMES A DAY ORAL 09/03/18 18:00 10/01/18 17:59 09/08/18 18:00 Meropenem 1 gm/ Sodium Chloride 100 ml @ 200 mls/hr Q12HR@0600,1800 IVPB 09/08/18 06:00 09/13/18 05:59 09/09/18 05:39 Ondansetron HCl (Zofran) 4 mg Q4H PRN IVP Nausea & Vomiting 09/03/18 17:15 09/22/18 17:03 Pantoprazole (Protonix) 40 mg DAILY ORAL 09/04/18 09:00 09/24/18 08:59 09/08/18 08:57 Sodium Chloride 1,000 ml @ 100 mls/hr Q10H IV 09/08/18 15:45 10/08/18 15:44 09/09/18 01:55 Trimethoprim/ Sulfamethoxazole 22 ml/Dextrose 572 ml @ 381.333 mls/hr Q12HR IV 09/08/18 21:00 09/15/18 20:59 09/08/18 21:00 Voriconazole (Vfend) 200 mg Q12HR ORAL 09/07/18 21:00 09/12/18 20:59 09/08/18 20:45 Aj Harding MD Sep 09, 2018 07:41
--- NOTE | 2018-09-09 07:44 | NUR ---
HAND-OFF: Report given to Sabra APONTE. Patient is refusing blood draw at this time. Patient has a PICC line, RN educated patient that bioinformatics assistant does not need to puncture the patient for blood draw, however, patient still refuses. Endorsed to day shift nurse. Patient is in stable condition.
--- NOTE | 2018-09-09 07:53 | Nephrology Progress Note ---
Assessment/Plan Problem List: (1) Respiratory failure (2) ROSA (acute kidney injury) (3) Sepsis (4) Adrenal insufficiency (5) Healthcare-associated pneumonia Plan cxr represent pneumonia rather than chf, will stop lasix for now, replace K, now off pressors, hydrate can dc iv now , Lm low likely prerenal, avoid over hydration dc reyes , voiding trial, lab better but may have ckd following rosa, creatinine slight rise to 2,3 observe with oral hydration + iv also ordered by another MD Subjective Constitutional: Reports: weakness HEENT: Reports: no symptoms Genitourinary: Reports: no symptoms Neurologic/Psychiatric: Reports: no symptoms Objective Objective Last 24 Hour Vital Signs Date Time Temp Pulse Resp B/P (MAP) Pulse Ox O2 Delivery O2 Flow Rate FiO2 09/09/18 04:00 Room Air Room Air 09/09/18 04:00 97.7 74 20 128/64 (85) 100 09/09/18 03:14 72 09/09/18 00:00 Room Air Room Air 09/09/18 00:00 98.2 79 20 137/78 (97) 97 09/08/18 23:17 67 09/08/18 21:01 Room Air 21 09/08/18 21:01 80 18 Room Air 21 09/08/18 21:01 97 Room Air 21 09/08/18 20:11 Room Air Room Air 09/08/18 20:00 98.0 82 20 145/85 (105) 97 09/08/18 19:33 79 09/08/18 16:00 79 09/08/18 16:00 97.3 77 20 130/71 (90) 97 09/08/18 16:00 Room Air Room Air 09/08/18 12:00 Room Air Room Air 09/08/18 12:00 79 09/08/18 12:00 96.8 81 20 124/68 (86) 97 09/08/18 08:00 Room Air Room Air 09/08/18 08:00 97.7 75 20 134/72 (92) 97 09/08/18 07:56 Room Air 21 09/08/18 07:55 97 Room Air 21 Intake and Output 09/08/18 09/09/18 19:00 07:00 Intake Total 602 ml 2262.666 ml Output Total 400 ml Balance 602 ml 1862.666 ml Intake Oral 602 ml IV Total 2262.666 ml Output Urine Total 400 ml # Bowel Movements 4 1 Laboratory Tests 09/08/18 13:20: White Blood Count 11.4H, Red Blood Count 3.21L, Hemoglobin 9.6L, Hematocrit 28.8L, Mean Corpuscular Volume 90, Mean Corpuscular Hemoglobin 29.9, Mean Corpuscular Hemoglobin Concent 33.3, Red Cell Distribution Width 12.7, Platelet Count 296, Mean Platelet Volume 6.0L, Neutrophils (%) (Auto) , Lymphocytes (%) ( Auto) , Monocytes (%) (Auto) , Eosinophils (%) (Auto) , Basophils (%) (Auto) , Differential Total Cells Counted 100, Neutrophils % (Manual) 81H, Lymphocytes % (Manual) 9L, Monocytes % (Manual) 10, Eosinophils % (Manual) 0, Basophils % ( Manual) 0, Band Neutrophils 0, Platelet Estimate Adequate, Platelet Morphology Normal, Hypochromasia 1+, Sodium Level 135L, Potassium Level 4.4, Chloride Level 103, Carbon Dioxide Level 22, Anion Gap 11, Blood Urea Nitrogen 30H, Creatinine 2.3H, Estimat Glomerular Filtration Rate , Glucose Level 111H, Calcium Level 8.4L, Magnesium Level 2.1, Total Bilirubin 0.2, Aspartate Amino Transf (AST/SGOT) 28, Alanine Aminotransferase (ALT/SGPT) 31, Alkaline Phosphatase 82, Total Protein 6.7, Albumin 2.6L, Globulin 4.1, Albumin/Globulin Ratio 0.6L Height (Feet): 5 Height (Inches): 7.00 Weight (Pounds): 154 General Appearance: no apparent distress, alert EENT: normal ENT inspection Neck: normal alignment, normal inspection Cardiovascular: normal rate, regular rhythm Respiratory/Chest: lungs clear, normal breath sounds Abdomen: no organomegaly Neurologic: tissue technologist II-XII grossly normal Cesar Nunez MD Sep 09, 2018 07:53
[2018-09-09 08:00] VITALS: BP 149/74
[2018-09-09] MEDS: Lactobacillus-GG tablet ORAL SCH ×2 (09:59→12:29)
[2018-09-09] MEDS: Magnesium Oxide 400mg tab ORAL SCH ×2 (09:59→12:29)
[2018-09-09] MEDS ORDERED: Bactrim-DS 1 tab ORAL SCH (10:00)
[2018-09-09] MEDS: Heparin 5000 units/ml inj SUBQ SCH (10:01)
--- NOTE | 2018-09-09 10:15 | Progress Note ---
DATE: 09/08/2018 CARDIOLOGY PROGRESS NOTE SUBJECTIVE: The patient complaining of abdominal pain. Intolerance of antibiotics, diarrhea, some nausea, and poor appetite. No chest pain. Less congestion, less shortness of breath. OBJECTIVE: VITAL SIGNS: Blood pressure 124/68, pulse 81, respirations 20, afebrile. HEENT: Oropharynx clear with no thrush. NECK: Supple. LUNGS: With coarse breath sounds and rhonchi. CARDIAC: Regular rhythm and rate. Normal S1, S2 with a fourth heart sound. ABDOMEN: Soft, no edema. LABORATORY DATA: White count 11.4, hemoglobin 9.6. Sodium 135, potassium 4.4, bicarb 22, BUN 30, creatinine 2.3. Magnesium 2.1. Albumin 2.6. IMPRESSION: 1. Recovering pneumonia. 2. Adrenal insufficiency. 3. History of melanoma. 4. Acute on chronic renal failure. 5. Type 2 diabetes mellitus. 6. Moderate protein-calorie malnutrition. 7. Acute on chronic diastolic congestive heart failure. 8. Anemia of chronic kidney disease and chronic disease. 9. Antibiotic associated gastrointestinal distress. PLAN: 1. Hydration. 2. Follow up renal parameters. 3. Antibiotics per Infectious Disease database consultant. 4. CAT scan of the chest performed today, will be reviewed and further recommendations to follow. 5. DVT prophylaxis and mobilization, continue baseline hydrocortisone dosing. Nathaniel Bonilla M.D. DR: BERNARDINO JOB#: [id number] CC:
[2018-09-09 12:00] VITALS: BP 124/68
--- NOTE | 2018-09-09 14:44 | NUR ---
NURSE NOTES: Seen by Dr Bonilla with order to perform bladder scan. Bladder scan performed and patient has 570ml of residual. Dr Bonilla suggested for urinary catheter but patient refused. Dr. Bonilla is aware of the refusal. Addendum: 09/09/18 at 1447 by Cristobal Reilly RN Seen by Dr Bonilla with order to perform bladder scan. Bladder scan performed and patient has 570ml of residual. Dr Bonilla ordered for urinary catheter but patient refused. Dr. Bonilla is aware of the refusal.
--- NOTE | 2018-09-09 14:52 | NUR ---
DISCHARGE PLAN PATIENT IS REFUSING PLACEMENT AND WANTS TO GO HOME HE IS GO HOME WITH JAIN CATH (BUT PATIENT IS REFUSING) REFERRED TO [facility] T: [phone] F: [phone] PATIENT IS TO FOLLOW UP WITH SULFIDE HEAD OPERATOR DR BUCKLEY IN 10 DAYS ~ T: [phone] PATIENT TO FOLLOW UP WITH HIS PMD IN 1 WEEK Addendum: 09/09/18 at 1500 by PATRICE HORNE LVN LVN PER PATIENT HE LIVES AT HOME WITH HIS BUT HIS BROTHER WILL COME TO PICK HIM UP
[2018-09-09 15:40] VITALS: BP 130/72
--- NOTE | 2018-09-09 16:03 | NUR ---
NURSE NOTES: Received discharge to home order. Discharge instruction and prescription is given to the patient. All belongings given to patient as well. Patient was picked up by his Rina and brother Farshad and left via private transportation in stable condition. Assisted patient to family member's transportation with W/C.
--- NOTE | 2018-09-09 16:28 | General Surgery Progress Note ---
General Surgery-Progress Note Subjective Additional Comments late entry for patient seen earlier this morning prior to my scheduled surgeries. doing well. comfortable. no n/v/f/c. pain controlled. states he is ready to go home Objective Last 24 Hour Vital Signs Date Time Temp Pulse Resp B/P (MAP) Pulse Ox O2 Delivery O2 Flow Rate FiO2 09/09/18 15:40 98.2 89 20 130/72 (91) 94 09/09/18 15:25 63 09/09/18 12:00 Room Air Room Air 09/09/18 12:00 98.0 76 21 124/68 (86) 98 09/09/18 11:53 89 09/09/18 08:00 97.6 88 20 149/74 (99) 99 09/09/18 08:00 Room Air Room Air 09/09/18 07:45 83 09/09/18 06:45 96 Room Air 21 09/09/18 06:45 Room Air 21 09/09/18 06:45 84 18 Room Air 21 09/09/18 04:00 Room Air Room Air 09/09/18 04:00 97.7 74 20 128/64 (85) 100 09/09/18 03:14 72 09/09/18 00:00 Room Air Room Air 09/09/18 00:00 98.2 79 20 137/78 (97) 97 09/08/18 23:17 67 09/08/18 21:01 Room Air 21 09/08/18 21:01 80 18 Room Air 21 09/08/18 21:01 97 Room Air 21 09/08/18 20:11 Room Air Room Air 09/08/18 20:00 98.0 82 20 145/85 (105) 97 09/08/18 19:33 79 I&O Intake and Output 09/08/18 09/09/18 19:00 07:00 Intake Total 602 ml 2262.666 ml Output Total 400 ml Balance 602 ml 1862.666 ml Intake Oral 602 ml IV Total 2262.666 ml Output Urine Total 400 ml # Bowel Movements 4 1 Drains: none Cardiovascular: RSR Respiratory: clear Abdomen: soft, flat, non-tender, present bowel sounds Extremities: no cyanosis Plan Problems: (1) Sepsis (2) Abdominal distension (gaseous) Assessment & Plan: Abdominal distention / discomfort. no n/v/f/c. +flatus. feels bloated. exam with mild distention/non tender CT - Mildly fluid-filled small bowel loops, nonspecific, No acute process otherwise, Postcholecystectomy changes. What are probably hepatic cysts adjacent to the gallbladder fossa mimics fluid in the gallbladder fossa on the axial views, but appear to be cysts on the coronal images. Nonetheless, biloma or other pathologic collection not completely excludable Multiple nonobstructive left renal calculi Sarmiento catheter Bilateral basilar pulmonary interstitial prominence, nonspecific Scoliosis and spondylosis KUB - Nonspecific prominent but not frankly dilated gas-filled small bowel loops , decreased from previous day's exam Satisfactory position right groin central venous catheter worsening respiratory status requiring intubation abdominal exam unchanged KUB okay no signs of obstruction labs improved. gas okay recovering -no acute surgical intervention planned -Rx as written -diet as tolerated -activity as tolerated -will follow clinically with exams -d/c planning -okay to d/c from surgical standpoint thank you for allowing me to participate in patients care David Daley Sep 09, 2018 16:28
[2018-09-09] MEDS ORDERED: Tamsulosin 0.4mg cap ORAL SCH (21:00)
--- NOTE | 2018-09-10 03:45 | Progress Note ---
DATE: 09/09/2018 CARDIOLOGY AND INTERNAL MEDICINE PROGRESS NOTE SUBJECTIVE: The patient is anxious to go home. He is "fed up" with the hospital stay. He feels well enough to go home. He has refused blood test today. He also has refused to follow up CAT scan of the abdomen. The current findings and diagnostic studies were reviewed in detail with the patient directly by me as well as the consulting staff. In addition his son, Marjan was notified of these findings by me and they were reviewed by telephone. The patient's CAT scan of the chest today reveals improvement in the pulmonary infiltrates and better aeration. There is evidence of a left renal nephrolithiasis with some degree of hydronephrosis. The patient has urinary retention noted with postvoid residual of 500 to 600 mL. The patient was started on tamsulosin. The patient was offered a Sarmiento catheter for the interim, but he refused. OBJECTIVE: VITAL SIGNS: Blood pressure 124/68, pulse 76, respiratory rate 21, afebrile, and room air oxygen saturation is 94% to 99%. LUNGS: With good breath sounds. Few rhonchi. CARDIAC: Regular rhythm and rate. Normal S1 and S2 with no murmur. ABDOMEN: Soft and nontender. No CVA tenderness. No guarding or rebound. EXTREMITIES: No edema. IMPRESSION AND PLAN: Extensive bilateral interstitial pneumonia, possibly Pneumocystis carinii pneumonia versus aspiration versus other atypical agent, has responded quite well to empiric therapy. The patient will continue on oral antibiotics, fluconazole and Bactrim to complete the course of therapy for an additional 10 days. Hypoxia has recovered. The supplemental oxygen is no longer needed. A followup chest x-ray is recommended in two to three weeks. The patient continues to have signs of renal impairment with acute on chronic renal dysfunction due to both ATN that is recovering as well as obstructive uropathy. He was advised to have a Sarmiento catheter placed, but refused. He was started on tamsulosin. He is recommended to follow up with a transmissions systems operator within one week. Dr. Nunez is willing to see him. A repeat chemistry panel, postvoid residual, and CT urogram is recommended. The patient has opted to do so all of these at this time. Adrenal insufficiency is stable. The patient's blood pressure at baseline on his pre-admission dose of Cortef, which he will continue. He is also on a dose of levothyroxine that was slightly higher than admission and a TSH as an outpatient within four weeks' time is recommended. Melanoma reportedly in remission since admission. No evidence of any change in this and he is to follow up with his oncologist. Case management was contacted to assist with safe discharge home. The patient will go home to his 's care. He will be transported by his brother. His son was made aware of these plans and home health was ordered for assistance. The patient was offered a long-term facility for rehab, but refused. He also was offered outpatient physical therapy by home health. Nathaniel Bonilla M.D. DR: JONH JOB#: [id number] CC:
--- NOTE | 2018-09-10 15:48 | Diagnostic Imaging Report ---
Indication: Dyspnea. History of melanoma. Technique: Continuous helical transaxial imaging of the chest was obtained from the thoracic inlet to the upper abdomen. No intravenous contrast was administered. Coronal 2-D reformats were also obtained. Total Dose length Product (DLP): 733.[address] Dose Index Volume (CTDIvol): 19.35 mGy Comparison: 08/31/2018 Findings: Significant interval improvement with regard to patchy primarily groundglass opacities within portions of upper and lower lobes noted. Interval resolution of posterior basilar pleural effusions and improvement in degree of posterior basilar atelectasis demonstrated. Some residual primarily reticular-type densities and groundglass opacities persist within portions of upper and lower lobes especially at the left lung base. Small patch of consolidation posterior medial left lung base also noted. The nature of the pulmonary findings is not known but presumably inflammatory or infectious given the heterogeneous distribution and subsequent improvement over a relatively short time. Please correlate clinically. There is a central venous catheter with the tip projecting within the SVC. The mediastinum is unremarkable. The visualized part of the upper abdomen demonstrates the partially nonobstructive stones at least numbering 2 in the left kidney. There is also hydronephrosis present on the left side noted. The most recent exam that image the left kidney was a CT 08/22/2018 which did not show evidence of hydronephrosis but did show a nonobstructive stones in the left kidney. Consider further evaluation. Cholecystectomy clips demonstrated. Hiatal hernia noted. IMPRESSION: Interval improvement of pulmonary opacities primarily groundglass and reticular densities presumably infectious/inflammatory with mild to moderate residual disease. Correlate clinically. Development of left hydronephrosis not seen on the most recent exam that the imaged the left kidney which was a CT abdomen from 08/22/2018. Nonobstructive stones partially visualized in the left kidney noted. Consider evaluation with noncontrast CT of the abdomen and pelvis to evaluate for ureteral obstruction. Status post cholecystectomy Hiatal hernia The CT scanner at [facility] is accredited by the [employer] and the scans are performed using dose optimization techniques as appropriate to a performed exam including Automatic Exposure control.
--- NOTE | 2018-09-12 13:14 | Discharge Summary ---
Discharge Summary Discharge Summary _ DATE OF ADMISSION: 08/22/2018 DATE OF DISCHARGE:09/09 DISCHARGED BY: Dr. Bonilla REASON FOR ADMISSION: 73 years old male with past medical history of hypertension, malignant melanoma with metastatic disease ( in remission), history of acute cholecystitis and bacteremia in April 2018 with subsequent cholecystectomy, type 2 diabetes mellitus, hypothyroidism, status post hernia repair, severe adrenal insufficiency , on chronic hydrocortisone therapy , presented with vomiting , weakness and lethargy . Patient was very drowsy and arousable only to painful stimuli . In emergency department patient was febrile with temperature of 104 and hypotensive. Patient was pancultured and started on fluid resuscitation . Patient started on broad-spectrum antibiotics and intravenous steroids. Levophed started after blood pressure failed to respond to fluid challenge. Laboratory workup revealed WBC 12, hemoglobin 14. Lactic acid 1.4. TSH 5.08. Troponin negative. CK 612. CK-MB negative. BUN 27, creatinine 1.2. CT of the head revealed no acute intracranial pathology. Chest x-ray revealed no acute cardiopulmonary process. CT of the abdomen and pelvis revealed mildly fluid-filled small bowel, nonspecific. No acute process otherwise. Patient admitted for further management. CONSULTANTS: pulmonary Dr. Harding, ( second opinion) ID specialist GI specialist dr. Emerson visitor services associate Dr. Nunez title agent/oncologist surgery Dr. Daley plumber apprentice Dr. Baca HOSPITAL COURSE: Patient admitted to ICU. Overall condition was critical with guarded prognosis. Volume support provided. Levophed continued with goal to keep mean arterial blood pressure above 60. Steroids were given intravenously. DVT and GI prophylaxis provided. Patient started on broad-spectrum antibiotics as per ID specialist recommendations. Regional Branch Manager closely followed. Patient initially was on oxygen via nasal cannula. However patient condition deteriorated , and chest x-ray on 08/25 revealed Interval worsening of aeration with development of dense airspace opacities in the medial right mid/lower lung and patchy opacities in the right upper lung concerning for multifocal pneumonia. Perihilar interstitial opacities in the left raised question for a degree of underlying congestion/fluid overload. Patient intially started on diuresis with close monitoring of volumes and cardiorenal parameters. Patient was followed-up with ABG. Venous Doppler bilateral lower extremity revealed no evidence of acute DVT. Echocardiogram revealed ejection fraction of 45%. with global left ventricular hypokinesis and abnormal septal motion. Right ventricular systolic pressure of 26. ABG on revealed severe acidosis and hypoxemia. Patient subsequently was intubated by emergency room doctor on 08/26 . Chest x-ray confirmed placement of endotracheal tube. ID specialist followed. Antibiotic provided as per ID specialist recommendations. Influenza screen test was negative. Blood culture 1 out of 4 revealed Staphylococcus coagulase negative, likely contaminant as per ID. Repeated blood cultures were negative. Stool culture was negative. Urine culture was negative. Sputum culture revealed Cyndee. Stool for C. difficile was negative. Leukocytosis initially was trending up with the highest being 20, and then started to trend down on 09/08 WBC down to 11.4. Recurrent fevers- resolved. Patient on long-term steroid therapy, with immunocompromised status, and high risk for atypical pneumonia. Induced sputum culture was negative for PCP. Sputum culture showed Cyndee. Patient was at high risk for fungemia, given immunocompromised status. Urine Legionella antigen was negative. Cocci antigen was negative. Mycoplasma pneumonia IgG 1346. CT of the chest revealed probable multifocal pneumonia. Patient was on antibiotic as per ID specialist recommendation: meropenem , voriconazole and IV Bactrim. Hepatitis panel negative. Pulmonary toilet provided. Patient was able to be weaned from the ventilator and from pressors. Supplemental oxygen titrated to keep pulse oximetry above 92%. Follow-up CT chest prior to discharge revealed interval improvement of pulmonary opacities, primarily ground-glass and reticular densities, predominately infectious/inflammatory with mild to moderate residual. Patient clinically much improved. Patient was continued on steroids. Chicken Stuffer followed. Chest x-ray was more consistent with pneumonia than CHF. Diuretics stopped. Volumes and renal parameters were closely monitored. Electrolytes replaced as needed. Patient was able to be weaned from pressor. Patient was hydrated initially , subsequently IV fluids were discontinued. Urine sodium low, likely prerenal as per visitor services associate. Chicken Stuffer recommended avoid overhydration. Oral fluids were pushed. Hemoglobin and hematocrit were closely monitored with goal to keep hemoglobin above 7. Anemia workup was consistent with anemia of chronic disease. Gastric fluid was positive for occult blood. GI followed . Hepatitis panel was negative. Patient exhibited diarrhea , presumed to be antibiotic related, since stool for C difficile was negative. Diarrhea gradually subsided. Supportive care provided Per GI specialist , EGD and colonoscopy were deferred to a later date as an outpatient , once patient more stable. Surgeon closely followed. Patient was followed with serial KUB. No evidence of obstruction. No need for surgical intervention, Bowel regimen instituted. GI prophylaxis provided, Patient started on diet and was advanced as tolerated. Patient was working with with physical therapy. Developing Machine Tender follow. Levothyroxine dose was increased due to elevated TSH. Repeat TSH in 4 weeks. Steroid tapered to maintenance dose: Cortef 15 mg in the morning and 5 mg at night . Blood sugar was managed with sliding scale of insulin DVT and GI prophylaxis continued. Initial extensive bilateral interstitial pneumonia , possibly aspiration versus other atypical agents, responded well to empiric therapy. Patient will be continued on oral fluconazole and Bactrim to complete the course of treatment for additional 10 days. Hypoxia resolved. No need for supplemental oxygen. Pulse oximetry was stable on room air. Patient recommended to have a chest x-ray in 2-3 weeks. Patient continued to have evidence of renal insufficiency due to both acute tubular necrosis and from obstructive uropathy. Patient was recommended to have a Sarmiento catheter placed, however patient declined. Patient started on Flomax. Patient to follow-up with visitor services associate within [address] urogram and postvoid residual upon evaluation by visitor services associate. Steroid tapered to maintenance dose. Blood pressures remained at the baseline. Follow-up with TSH in 4 weeks. Melanoma reportedly in remission since admission. No evidence of any change. Follow-up with oncologist as outpatient. Patient was offered nursing home facility for rehabilitation , but patient declined. Patient was discharged home where he lives with his , with home health services for physical therapy. FINAL DIAGNOSES: Sepsis with shock Acute hypoxemic respiratory failure requiring intubation, status post extubation Atypical pneumonia Possible aspiration pneumonia Acute kidney injury secondary to acute tubular necrosis on chronic renal insufficiency Adrenocortical insufficiency /[place] disease with immunocompromised status Malignant melanoma -in remisiion Hypertension Toxic metabolic encephalopathy History of biliary sepsis , status post cholecystectomy Hypothyroidism Diabetes Chronic diastolic congestive heart failure Severe protein calorie malnutrition Anemia of chronic disease Gastric Hemoccult positive Abdominal distention, possible ileus -resolved DISCHARGE MEDICATIONS: List of medication was sent with patient DISCHARGE INSTRUCTIONS: Patient was discharged home with home health services. Follow up with primary care provider in one week. I have been assigned to dictate discharge summary for this account. I was not involved in the patient's management. Summer Sahni NP Sep 12, 2018 13:14
== END 2018-09-09 16:00 | disposition home health service (06) | DRG 871 ==
LOC: EDBD 15:40 → EMR 17:22 → ICU 17:25 → EDBEDREQ 17:36 → 2W 08-24 16:38 → ICU 08-25 08:05 → 2W 09-03 16:14
PROC: 06HM33Z Insertion of Infusion Device into Right Femoral Vein, Percutaneous Approach (ICD-10-PCS; principal; 2018-08-22)
PROC: 0BH17EZ Insertion of Endotracheal Airway into Trachea, Via Natural or Artificial Opening (ICD-10-PCS; 2018-08-26)
PROC: 5A1945Z Respiratory Ventilation, 24-96 Consecutive Hours (ICD-10-PCS; 2018-08-26)
PROC: 02HV33Z Insertion of Infusion Device into Superior Vena Cava, Percutaneous Approach (ICD-10-PCS; 2018-08-26)
DX: A41.9 Sepsis, unspecified organism (principal); R65.21 Severe sepsis with septic shock; I50.33 Acute on chronic diastolic (congestive) heart failure; N17.0 Acute kidney failure with tubular necrosis; E43 Unspecified severe protein-calorie malnutrition; J96.01 Acute respiratory failure with hypoxia; J18.9 Pneumonia, unspecified organism; J69.0 Pneumonitis due to inhalation of food and vomit; G92 Toxic encephalopathy; E27.1 Primary adrenocortical insufficiency; K56.7 Ileus, unspecified; E87.1 Hypo-osmolality and hyponatremia; Z85.820 Personal history of malignant melanoma of skin; E86.1 Hypovolemia; I11.0 Hypertensive heart disease with heart failure; E11.9 Type 2 diabetes mellitus without complications; E03.9 Hypothyroidism, unspecified; Z68.24 Body mass index [BMI] 24.0-24.9, adult; Y95 Nosocomial condition; D64.9 Anemia, unspecified; E87.6 Hypokalemia; E83.42 Hypomagnesemia
CPT/HCPCS: 36415; 36569; 36600; 70450; 71045; 71250; 74018; 74177; 76937; 80048; 80053; 80150; 80202; 81001; 81003; 81050; 82024; 82088; 82140; 82150; 82164; 82248; 82271; 82533; 82550; 82553; 82565; 82570; 82575; 82803; 82955; 82962; 83540; 83550; 83605; 83615; 83690; 83735; 83880; 83935; 84100; 84156; 84244; 84300; 84439; 84443; 84481; 84484; 84550; 85007; 85025; 85610; 85730; 86635; 86705; 86709; 86710; 86738; 86803; 86850; 86900; 86901; 87040; 87045; 87070; 87081; 87086; 87181; 87205; 87324; 87340; 87449; 93005; 93306; 93970; 94002; 94003; 94640; 94664; 94760; 96365; 99291; J1815; J2405; J7620; J8499; S0077